=== PATIENT | male | born 1945 | race Caucasian/White ===

== ENCOUNTER → 2017-07-10 10:08 | Outpatient (CLI) | payer MEDICARE, OTHER, SELFPAY | PROVIDERS: Family Provider Family Medicine; PCP Family Medicine; Visit Provider Internal Medicine Cardiovascular Disease | DX: E78.5 Hyperlipidemia, unspecified (principal); Z79.899 Other long term (current) drug therapy | CPT/HCPCS: 36415; 80061; 80076 ==

== ENCOUNTER → 2017-07-11 10:24 | Outpatient (CLI) | payer MEDICARE, OTHER, SELFPAY ==
[2017-07-11 12:00] LABS: AST(SGOT) 27 U/L (15-37); Alanine Aminotransfer ALT/SGPT 32 U/L (16-61); Albumin, Serum 3.9 g/dL (3.2-5.0); Alkaline Phosphatase 92 U/L (45-117); Bilirubin, Direct 0.13 mg/dL (0.00-0.30); Cholesterol 128 mg/dL (200); Globulin 3.4 g/dL (2.2-4.2); High Density Lipoprotein 47 mg/dL; Protein, Total 7.3 g/dL (6.4-8.2); Triglycerides 274 mg/dL; Very Low Density Lipoprotein 55 mg/dL (5-40)
== END ==
PROVIDERS: Family Provider Family Medicine; PCP Family Medicine; Visit Provider Nurse Practitioner Family
DX: E78.5 Hyperlipidemia, unspecified (principal)
CPT/HCPCS: 36415; 80061; 80076

== ENCOUNTER → 2017-07-23 15:54 | Outpatient (CLI) | payer MEDICARE, OTHER, SELFPAY ==
[2017-07-23 16:58] LABS: Absolute Lymphocyte Count 2.04 X10^3/ul (0.83-4.51); Absolute Neutrophil Count 3.2 X10^3/uL (2.0-7.7); Basophil# 0.04 X10^3/uL; Basophil% 0.7 % (0-1); Eosinophil# 0.08 X10^3/uL; Eosinophils% 1.4 % (0-5); Hematocrit 39.5 % (40-54); Hemoglobin 12.8 g/dl (13.0-16.5); Lymphocyte # 2.04 X10^3/ul (4.0); Lymphocyte % 35.4 % (19-41); Mean Corp Hgb Conc 32.4 g/gl (32-36); Mean Corpuscular Hgb 30.2 pg (27.0-32.0); Mean Corpuscular Volume 93.2 fL (80-94); Mean Platelet Vol. 10.4 fl (6.2-12.0); Monocyte# 0.36 X10^3/uL; Monocyte% 6.3 % (0-10); Neutrophil # 3.23 X10^3/uL (2.7-7.7); Platelet Count 195 K/mm3 (150-450); RBC Distribution Width CV 13.5 % (11.6-14.6); RBC Distribution Width SD 45.4 fl (35.1-43.9); Red Blood Count 4.24 M/mm3 (4.6-6.2); White Blood Count 5.8 K/mm3 (4.4-11.0)
[2017-07-23 17:13] LABS: POSITIVE COUNT NO; POSITIVE DIFFERENTIAL NO; POSITIVE MORPHOLOGY NO
[2017-07-23 18:04] LABS: Anion Gap 9 (5-15); BUN 21 mg/dL (7-18); BUN/Creat Ratio 13.5 RATIO (10-20); Calcium,Total 8.8 mg/dL (8.5-10.1); Chloride 110 mmol/L (98-107); Creatinine, Serum 1.56 mg/dL (0.70-1.30); EST Glomerular Filtration Rate 47 mL/min (>60); Est Glom Filt Rate - Afr Amer 57 mL/min (>60); Glucose 140 mg/dL (74-106); Magnesium 1.7 mg/dL (1.6-2.6); Potassium 4.2 mmol/L (3.5-5.1); Sodium Level 141 mmol/L (136-145); T4 Total, Thyroxin 7.2 ug/dL (4.5-12.1); Thyroid Stim Hormone (TSH) 3.09 uIU/mL (0.358-3.74)
== END ==
PROVIDERS: Family Provider Family Medicine; PCP Family Medicine; Visit Provider Physician Assistant Medical
DX: I25.10 Atherosclerotic heart disease of native coronary artery without angina pectoris (principal); I95.1 Orthostatic hypotension; R53.83 Other fatigue
CPT/HCPCS: 36415; 80048; 83735; 84436; 84443; 85025

== ENCOUNTER → 2018-01-14 08:03 | Outpatient (CLI) | payer MEDICARE, OTHER, SELFPAY ==
[2018-01-14 12:15] LABS: AST(SGOT) 24 U/L (15-37); Alanine Aminotransfer ALT/SGPT 34 U/L (16-61); Albumin, Serum 3.8 g/dL (3.2-5.0); Alkaline Phosphatase 91 U/L (45-117); Bilirubin, Direct 0.13 mg/dL (0.00-0.30); Cholesterol 108 mg/dL (200); Globulin 3.2 g/dL (2.2-4.2); High Density Lipoprotein 44 mg/dL; Triglycerides 147 mg/dL; Very Low Density Lipoprotein 29 mg/dL (5-40)
== END ==
PROVIDERS: Nurse Practitioner Family; Family Provider Family Medicine; PCP Family Medicine; Visit Provider Physician Assistant Medical
DX: E78.5 Hyperlipidemia, unspecified (principal)
CPT/HCPCS: 36415; 80061; 80076

== ENCOUNTER 2018-06-05 09:17 | Day surgery (SDC) | payer MEDICARE, OTHER, SELFPAY ==
[2018-05-15 09:16] VITALS: BMI 22.4
[2018-05-15 10:37] LABS: Hematocrit 41.2 % (40-54); Hemoglobin 13.2 g/dl (13.0-16.5); Mean Corpuscular Hgb 30.3 pg (27.0-32.0); Mean Corpuscular Volume 94.5 fL (80-94); Mean Platelet Vol. 10.3 fl (6.2-12.0); Platelet Count 235 K/mm3 (150-450); RBC Distribution Width CV 13.4 % (11.6-14.6); Red Blood Count 4.36 M/mm3 (4.6-6.2); White Blood Count 5.7 K/mm3 (4.4-11.0)
[2018-05-15 10:57] LABS: Scan Indicated on CBC? Y/N NO
[2018-05-15 10:58] LABS: Anion Gap 6 (5-15); BUN 20 mg/dL (7-18); BUN/Creat Ratio 15.4 RATIO (10-20); Calcium,Total 9.1 mg/dL (8.5-10.1); Chloride 110 mmol/L (98-107); EST Glomerular Filtration Rate 58 mL/min (>60); Est Glom Filt Rate - Afr Amer 70 mL/min (>60); Glucose 80 mg/dL (74-106); Potassium 4.3 mmol/L (3.5-5.1); Sodium Level 142 mmol/L (136-145)
--- NOTE | 2018-05-15 11:16 | EKG12_ITS ---
Test Reason : PRE-OP Blood Pressure : / mmHG Vent. Rate : 049 BPM Atrial Rate : 049 BPM P-R Int : 162 ms QRS Dur : 080 ms QT Int : 444 ms P-R-T Axes : 024 054 067 degrees QTc Int : 401 ms Marked sinus bradycardia Early repolarization Abnormal ECG Confirmed by JULY HAWK, HANNAH ([id number]), manager editorial RG BUSTOS ([id number]) on 05/19/2018 9:29:03 AM Referred By: Bryan Rahman Confirmed By:HANNAH MCDOWELL MD
[2018-06-04 10:45] VITALS: BMI 22.3
--- NOTE | 2018-06-05 11:49 | PCM.OPRPT ---
Problem List (1) Peripheral arterial occlusive disease Status: Acute Report of Operation Date of Procedure: 06/05/18 Pre-Operative Diagnosis: Hammertoe deformity left foot. Peripheral arterial occlusive disease with noncompressible vessels Post-Operative Diagnosis: Patent left lower extremity arteries with no areas of clinically significant stenosis Surgery/Procedure Performed:: Abdominal pelvic left lower extremity arteriogram Description of Surgical Findings:: Timeout and informed consent was obtained. 72-year-old gentleman was taken to the special procedures lab placed upon the table. Preoperatively he received iodinated contrast prophylaxis with Solu-Cortef and Benadryl and famotidine. Timeout and informed consent was obtained. He received 50 mcg of fentanyl and 2 mg of Versed as intravenous sedation as well. The right groin was sterilely prepped and draped. Ultrasound was used to identify the right common femoral superficial femoral profundofemoral. 2% lidocaine was instilled under ultrasound guidance. Micropuncture needle inserted under ultrasound guidance. Micropuncture wire inserted. 5 [place] short sheath was inserted. An 035 angled Glidewire was used to place a 5 [place] universal flush catheter into the abdominal aorta. An AP aortogram was obtained using 15 cc a second for 20 cc of Visipaque contrast. This was diluted contrast. Then the catheter was withdrawn to the iliac bifurcation using an angled Glidewire the catheter could not be advanced I then advanced a 4 [place] glide cath to the left groin area. Static views of the left thigh were obtained. I then switched out to a stiff 035 angled Glidewire was able to advance a 4 [place] angled [place] cath into the left superficial femoral artery. Static views of the popliteal artery was obtained. The catheter was then advanced to the infrageniculate area and lower leg films were obtained. He tolerated that procedure well. Over the wire the glide catheter was removed. A wire was replaced through the right groin sheath and a minx sheath was inserted. Then the minx device was inserted and deployed. Gentle pressure was held for 2 minutes. The device was carefully removed. Hemostasis was immediately intact. There were no apparent complications. Both extremities viable. Images demonstrate a widely patent abdominal aorta, bilateral common iliac, internal iliac, and external iliacs. The left common femoral and profunda femoral and superficial femoral also patent. The left popliteal patent. There is trifurcation flow on the left. The left anterior tibial and posterior tibial are dominant. The left peroneal fades by the distal calf. There is evidence of palmar arch flow and digital flow. Impression: Normal large vessel vascular supply to the left lower extremity with intact digital flow identified My impression is that the patient should be able to tolerate corrective left foot surgery Bryan Rahman M.D., F.A.C.S. Type of Anesthesia:: IV Sedation
[2018-06-05 11:52] LABS: ACT Activated Clotting Time 120 sec (74-137)
--- NOTE | 2018-06-05 11:56 | OP.PCM_ITS ---
Problem List (1) Peripheral arterial occlusive disease Status: Acute Report of Operation Date of Procedure: 06/05/18 Pre-Operative Diagnosis: Hammertoe deformity left foot. Peripheral arterial occlusive disease with noncompressible vessels Post-Operative Diagnosis: Patent left lower extremity arteries with no areas of clinically significant stenosis Surgery/Procedure Performed:: Abdominal pelvic left lower extremity arteriogram Description of Surgical Findings:: Timeout and informed consent was obtained. 72-year-old gentleman was taken to the special procedures lab placed upon the table. Preoperatively he received iodinated contrast prophylaxis with Solu-Cortef and Benadryl and famotidine. Timeout and informed consent was obtained. He received 50 mcg of fentanyl and 2 mg of Versed as intravenous sedation as well. The right groin was sterilely prepped and draped. Ultrasound was used to identify the right common femoral superficial femoral profundofemoral. 2% lidocaine was instilled under ultrasound guidance. Micropuncture needle inserted under ultrasound guidance. Micropuncture wire inserted. 5 [place] short sheath was inserted. An 035 angled Glidewire was used to place a 5 [place] universal flush catheter into the abdominal aorta. An AP aortogram was obtained using 15 cc a second for 20 cc of Visipaque contrast. This was diluted contrast. Then the catheter was withdrawn to the iliac bifurcation using an angled Glidewire the catheter could not be advanced I then advanced a 4 [place] glide cath to the left groin area. Static views of the left thigh were obtained. I then switched out to a stiff 035 angled Glidewire was able to advance a 4 [place] angled [place] cath into the left superficial femoral artery. Static views of the popliteal artery was obtained. The catheter was then advanced to the infrageniculate area and lower leg films were obtained. He tolerated that procedure well. Over the wire the glide catheter was removed. A wire was replaced through the right groin sheath and a minx sheath was inserted. Then the minx device was inserted and deployed. Gentle pressure was held for 2 minutes. The device was carefully removed. Hemostasis was immediately intact. There were no apparent complications. Both extremities viable. Images demonstrate a widely patent abdominal aorta, bilateral common iliac, internal iliac, and external iliacs. The left common femoral and profunda femoral and superficial femoral also patent. The left popliteal patent. There is trifurcation flow on the left. The left anterior tibial and posterior tibial are dominant. The left peroneal fades by the distal calf. There is evidence of palmar arch flow and digital flow. Impression: Normal large vessel vascular supply to the left lower extremity with intact digital flow identified My impression is that the patient should be able to tolerate corrective left foot surgery Bryan Rahman M.D., F.A.C.S. Type of Anesthesia:: IV Sedation
== END 2018-06-05 15:00 | disposition home or self-care (01) ==
LOC: CLSP 09:18
PROVIDERS: Family Provider Family Medicine; PCP Family Medicine; Referring Provider Surgery; Visit Provider Surgery
DX: Z01.818 Encounter for other preprocedural examination (principal); I77.9 Disorder of arteries and arterioles, unspecified; M20.42 Other hammer toe(s) (acquired), left foot; I25.10 Atherosclerotic heart disease of native coronary artery without angina pectoris; E78.5 Hyperlipidemia, unspecified; E11.9 Type 2 diabetes mellitus without complications; Z79.82 Long term (current) use of aspirin; Z79.84 Long term (current) use of oral hypoglycemic drugs; Z79.899 Other long term (current) drug therapy; Z87.891 Personal history of nicotine dependence
CPT/HCPCS: 36245; 36415; 75710; 76937; 80048; 85027; 85347; 93005; 99152; 99153; C1760; J7030; J7040; Q9967; C1769; J3490

== ENCOUNTER → 2019-02-05 11:39 | Outpatient (CLI) | payer MEDICARE, OTHER, SELFPAY ==
[2019-01-20 13:03] VITALS: BMI 21.7
[2019-02-04 14:18] LABS: Creatinine, Serum 1.51 mg/dL (0.70-1.30); EST Glomerular Filtration Rate 49 mL/min (>60); Est Glom Filt Rate - Afr Amer 59 mL/min (>60)
--- NOTE | 2019-02-05 11:41 | MRI_ITS ---
STUDY: MRI RIGHT KNEE REASON FOR EXAM: Posterior medial lump of the right knee. TECHNIQUE: Standardized fat and water weighted pulse sequences were obtained in all 3 orthogonal planes. COMPARISON: None. FINDINGS: There is a radial tear of the posterior horn of the medial meniscus extending to the root (recovery sagittal images 25-28), a horizontal tear of the free margin of the posterior horn of the medial meniscus (T1 sagittal images 32, 33) and a small vertical tear of the inferior articular surface of the body of the medial meniscus (T2 coronal images 17, 18). Normal hyaline cartilage of the medial femorotibial compartment. Normal medial femoral condyle and tibial plateau. Normal medial collateral ligamentous complex (MCL). Normal distal semimembranosus, gracilis and semitendinosus tendons. Normal lateral meniscus. Normal hyaline cartilage of the lateral femorotibial compartment. Normal lateral femoral condyle and tibial plateau. Normal proximal tibiofibular articulation. Normal lateral collateral (fibular) ligament. Normal popliteus tendon. Normal biceps femoris tendon. Normal anterior cruciate ligament (ACL). Normal posterior cruciate ligament (PCL). Normal congruent patellofemoral articulation. Normal hyaline cartilage of the patellofemoral compartment. Normal medial and lateral patellar retinaculum. Normal quadriceps tendon. Normal patellar tendon. Normal Hoffa's fat pad. There is no joint effusion. There is a lobulated popliteal cyst corresponding to the skin markers with a superficial component (T2 coronal images 4-9; inversion recovery sagittal images 26-38). The popliteal cyst measures 6.3 cm in length. The otherwise visualized osseous structures are unremarkable. MRI/Lower Ext Joint Only (Routine) IMPRESSION: Popliteal cyst corresponding to the skin markers. Medial meniscal tear. Electronically Signed: Adan Dias MD at 13:59 EDT Tel , Service support ,
== END ==
PROVIDERS: Family Provider Family Medicine; PCP Family Medicine; Referring Provider Surgery; Visit Provider Surgery
DX: M23.8X1 Other internal derangements of right knee (principal)
CPT/HCPCS: 36415; 73721; 82565

== ENCOUNTER 2019-04-29 23:07 | Emergency (ER) | payer MEDICARE, OTHER, SELFPAY ==
[2019-02-11 10:58] VITALS: BMI 21.7
[2019-04-29 23:08] VITALS: BP 145/90; PULSE 81; RESP 17; TEMP 36.4; O2SAT 98; BMI 24.0
--- NOTE | 2019-04-29 23:28 | ED.VIS.GEN ---
History of Present Illness Chief Complaint: Male Pain/Injury Informant: Patient Narrative: Stated that for the last 12 hours he has had gradual onset of aching left-sided testicle pain. Not sexually active for the last 3 years. No history of sexual transmitted infection. He is never had a twisted testicle. Denies any hernia surgery on this side. No fevers or surgery. No home treatment. Current severity is moderate. Worsened by touching it. Stated he has chronic back pain on the right side for several months but that is not contributing to this type of discomfort he is having in his testicle. - Past Medical History (1) Peripheral arterial occlusive disease Status: Acute (2) Atherosclerotic heart disease of [place] coronary artery without angina pectoris Status: Chronic (3) Hyperlipidemia Status: Chronic (4) Long-term use of high-risk medication Status: Chronic (5) Presence of stent in coronary artery Status: Chronic Comment: cardiac cath (left) March 1996, w/ PCI-Stent Mid LAD 1995, [facility] w/ [id number] LAD 05/19/10; [facility] w/PCI and [place] to proximal and distal LAD 12/07/15 (6) Status post placement of implantable loop recorder Status: Chronic (7) Type II diabetes mellitus Status: Chronic (8) Syncope and collapse Status: Resolved Past Medical History - Allergies and Home Meds Allergies/Adverse Reactions: Allergies iodine Allergy (Unknown, Verified 04/29/19 23:07) convulsions codeine Allergy (Verified 04/29/19 23:07) Itching Primary Care Physician: Brent Rahman III, MD [Primary Care Provider] - Prior records reviewed: Yes Past Medical History: - - See problem list Surgical History: noncontributory, appendectomy, cholecystectomy, tonsillectomy Lives: With Family Smoking Status: Never smoker Alcohol: None Drugs: None - Family History Sibling Family History: Family History (Last Reviewed 01/20/19 @ 13:01 by Jonna Moran) Father FH: congestive heart failure Mother FH: aneurysm Brother CVA (cerebral vascular accident) Brother Cancer Family History: Reports: Cancer Maternal Family History: Family History (Last Reviewed 01/20/19 @ 13:01 by Jonna Moran) Father FH: congestive heart failure Mother FH: aneurysm Brother CVA (cerebral vascular accident) Brother Cancer Family History: Reports: No pertinent history Paternal Family History: Family History (Last Reviewed 01/20/19 @ 13:01 by Jonna Moran) Father FH: congestive heart failure Mother FH: aneurysm Brother CVA (cerebral vascular accident) Brother Cancer Family History: Reports: Diabetes Review of Systems General: Denies: Chills, Fever, Sweats Eyes: Denies: Visual changes - bilaterally, Diplopia ENT: Denies: Rhinorrhea, Sore throat Cardiovascular: Denies: Chest pain, Palpitations Respiratory: Denies: Dyspnea, Cough, Dyspnea on exertion Gastrointestinal: Denies: Abdominal pain, Nausea, Vomiting, Diarrhea, Melena, Hematochezia Genitourinary: Reports: - - See HPI. Denies: Dysuria, Hematuria, Frequency Musculoskeletal: Denies: Back pain, Extremity Pain Skin: Denies: Rash, Wounds Neurological: Denies: Headache, Weakness, Numbness Physical Exam Vital Signs/Narrative: Vital Signs Temp Pulse Resp BP Pulse Ox 04/29/19 23:08 97.5 F L 81 17 145/90 H 98 General: Well nourished, Well developed, No Acute Distress Head: Normocephalic, Atraumatic Eyes: Perrl, EOMI ENT: Moist mucous membranes, No rhinorrhea Neck: Supple, Nontender Cardiovascular: Regular rate, Regular rhythm, No murmurs Respiratory: No distress, CTA bilaterally, Chest nontender Abdomen: Soft, Nontender, Nondistended, Normal bowel sounds : - - Tender swollen hard in left testicle. Normal lie. Easy to maneuver. No inguinal hernia. No swelling or deformity. Scrotum appears normal. Right testicle is normal. Unable to elicit cremasteric Back: Nontender, Normal Inspection Extremities: Nontender, No edema Skin: Normal color, No rash Neurological: Alert, Oriented x3, Cranial nerves II-XII grossly intact, Normal Strength, Normal Sensation Psychological: Normal affect, Normal Mood Diagnostic/Tx/Re-eval - Medical Decision Making Given IV fluids and morphine and Zofran. Lab work and emergent ultrasound of the testicle obtained lab work shows no major abnormalities. Mildly chronic elevated creatinine. Ultrasound shows no torsion. Atrophy of the right testicle. Left testicle which is bothering him shows evidence of epididymitis. Patient given ciprofloxacin. Urinalysis shows no infection. Urine culture sent. Will be discharged on Percocet and ciprofloxacin to follow-up as an outpatient ED Disposition - Plan for ED Patient: Disposition: Home or Assisted Living Diagnosis: Epididymitis Instructions: Epididymitis Prescriptions: Ciprofloxacin [Cipro] 500 mg PO BID #20 tab Prescription Printed Oxycodone HCl/Acetaminophen [Percocet 5/325] 1 - 2 tab PO Q6H PRN PRN 3 Days #12 tab PRN Reason: Pain Prescription Printed Referrals: Brent Rahman III, MD [Primary Care Provider] -
--- NOTE | 2019-04-29 23:35 | US_ITS ---
STUDY: SCROTUM ULTRASOUND REASON FOR EXAM: Male, 73 years old. LEFT TESTICULAR PAIN AND SWELLING TECHNIQUE: Ultrasound evaluation of the scrotum was performed with color Doppler and static kinsey-scale imaging. COMPARISON: None. FINDINGS: RIGHT TESTICLE INTRATESTICULAR: There is atrophic heterogeneous right testicle. The right testicle measures 1.9 x 1.2 x 0.9 cm. There is a heterogeneous echotexture. There is normal arterial and normal venous vascularity. There is no demonstrated right testicular mass or cyst. EXTRATESTICULAR: The epididymis is normal in size. The epididymis head measures 1.1 x 0.9 x 2.6 cm. There is normal vascularity of the epididymis. There is no demonstrated epididymal cystic structure. There is a small hydrocele. There is no demonstrated varicocele. There is no demonstrated extratesticular mass or cyst. LEFT TESTICLE INTRATESTICULAR: There is a normal size of the left testicle. The left testicle measures 3.4 x 2.8 x 2.3 cm. There is a homogenous echotexture. There is normal arterial and normal venous vascularity. There is no demonstrated left testicular mass or cyst. EXTRATESTICULAR: The epididymis is normal in size. The epididymis head measures 1.2 x 1.3 x 0.8 cm. There is normal vascularity of the epididymis. There is no demonstrated epididymal cystic structure. There is no demonstrated hydrocele. There is no demonstrated varicocele. There is no demonstrated extratesticular mass or cyst. US/Testicular with Arterial Flow IMPRESSION: Enlargement of the left epididymis may represent epididymitis. Severe atrophy of the right testicle may be due to an old trauma. Electronically Signed: Aspen Reyes, at 1:49 EST Tel , Service support ,
[2019-04-30 00:10] LABS: Absolute Lymphocyte Count 2.32 X10^3/uL (0.83-4.51); Absolute Neutrophil Count 4.3 X10^3/uL (2.0-7.7); Basophil# 0.06 X10^3/uL; Basophil% 0.8 % (0-1); Eosinophil# 0.11 X10^3/uL; Eosinophils% 1.5 % (0-5); Hematocrit 36.8 % (40-54); Hemoglobin 12.1 g/dL (13.0-16.5); Lymphocyte # 2.32 X10^3/ul (4.0); Lymphocyte % 31.1 % (19-41); Mean Corp Hgb Conc 32.9 g/dL (32-36); Mean Corpuscular Hgb 30.6 pg (27.0-32.0); Mean Corpuscular Volume 93.2 fL (80-94); Mean Platelet Vol. 9.7 fl (6.2-12.0); Monocyte# 0.64 X10^3/uL; Monocyte% 8.6 % (0-10); NRBC Flagged by Analyzer 0 % (0-5); Neutrophil # 4.29 X10^3/uL (2.7-7.7); Neutrophil % 57.3 % (47-70); Platelet Count 161 K/mm3 (150-450); RBC Distribution Width CV 12.7 % (11.6-14.6); RBC Distribution Width SD 43.4 fl (35.1-43.9); Red Blood Count 3.95 M/mm3 (4.6-6.2); White Blood Count 7.5 K/mm3 (4.4-11.0)
[2019-04-30] MEDS: Morphine 4 MG/ML Syringe IV (00:19)
[2019-04-30] MEDS: Ondansetron 4 MG/2 ML Vial IV (00:19)
[2019-04-30 00:23] LABS: Anion Gap 7 (5-15); BUN 21 mg/dL (7-18); BUN/Creat Ratio 14.1 RATIO (10-20); Calcium,Total 8.9 mg/dL (8.5-10.1); Chloride 109 mmol/L (98-107); Creatinine, Serum 1.49 mg/dL (0.70-1.30); EST Glomerular Filtration Rate 49 mL/min (>60); Est Glom Filt Rate - Afr Amer 60 mL/min (>60); Estimated Creatinine Clearance 47.73 ml/min; Glucose 161 mg/dL (74-106); Potassium 4.3 mmol/L (3.5-5.1); Sodium Level 140 mmol/L (136-145)
[2019-04-30 00:37] LABS: Bacteria 0 SEEN /hpf (None Seen); Mucous, Urine 0 SEEN /hpf (<or=2+); Red Blood Cells-Urine 0 SEEN /hpf (0-5); Squamous Epithelial Cells - UA 0 SEEN /hpf (0-5); White Blood Cells 0 SEEN /hpf (0-5)
[2019-04-30 00:46] LABS: Color, Urine Yellow (Yellow); Glucose, Dipstick Normal (Normal); Ketone-Dipstick Negative (Negative); Leukocyte Esterase-Dipstick Negative /ul (Negative); Nitrite-Dipstick Negative (Negative); Occult Blood-Urine 10 /ul (Negative); Protein-Dipstick Negative (Negative); Urine Bilirubin Dipstick Negative (Negative); Urine Clarity Clear (Clear); Urine Urobilinogen Normal (Normal)
[2019-04-30 01:22] VITALS: BP 134/81; PULSE 60; RESP 17; O2SAT 98
[2019-04-30 03:05] VITALS: BP 151/88; PULSE 78; RESP 15; O2SAT 98
[2019-04-30] MEDS: Ciprofloxacin 500 MG Tablet PO (03:05)
== END 2019-04-30 03:06 | disposition home or self-care (01) ==
PROVIDERS: Emergency Provider Emergency Medicine; Family Provider Family Medicine; PCP Family Medicine
DX: N45.1 Epididymitis (principal); I25.10 Atherosclerotic heart disease of native coronary artery without angina pectoris; E11.9 Type 2 diabetes mellitus without complications; E78.5 Hyperlipidemia, unspecified; Z95.5 Presence of coronary angioplasty implant and graft; Z79.82 Long term (current) use of aspirin; Z79.84 Long term (current) use of oral hypoglycemic drugs; Z79.899 Other long term (current) drug therapy
CPT/HCPCS: 76870; 80048; 81001; 85025; 87086; 93976; 96361; 96374; 96375; 99284; J7030; A4216; J2405

== ENCOUNTER 2019-05-19 11:30 | Outpatient (RCR) | payer MEDICARE, OTHER, SELFPAY ==
[2019-02-11 10:58] VITALS: BMI 21.7
--- NOTE | 2019-02-24 11:52 | HP.PTEVAL_ITS ---
Patient's Visit Information SANCHEZ LIM is a 73 year old M referred to Physical Therapy by Kyaw Willis MD with a diagnosis of L subscap repair and arthroscopic debridement on 01-15-19. Date of Evaluation: 02/24/19 Physical Therapist: HIEU Matos - Visit Plan Frequency: 1-2x /Week Duration: 3 Months Plan: 1-2X/ week to gain PROM per phase I (through 03-10-19). ++PROM fw elevation to 90 degree and ER to 0 degrees at 0 degrees abd till 03-10-19. Will need another order to progress to Phase II as current order only says phase I. Phase II. see protocol in folder. +++Protocol is in Protocol folder++++ - Subjective Findings: His L shoulder has been getting worse over the years and he was just having a lot of pain. He went to the Dr and he said that he needed surgery which was 01-15-19 and he had a GH debridemnet and subscap repair. He has been in the sling since surgery and will be in the sling for a total of 8 weeks. Pt is R handed. He is sleeping ok. He is taking pain meds once in awhile. He is driving. - Pain L shoulder pain Pain Intensity (Out of 10): 0 - Objective L shoulder PROM to 90 degrees elevation and at 0 degrees abd to 0 degrees ER. AAROM of the L bicep using the R hand. Able to do shoulder shrugs and retraction B without any pain. 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 Goal Time Frame: 8-12 Weeks Goal 4:: Increase L shoulder strength to 4/5 Goal Time Frame: 8-12 Weeks - Rehabilitation Potential Rehabilitation Potential: Good - Anticipated Interventions Patient/Client Instruction: Educate patient on: Condition, Plan of Care For the Purpose of:: To decrease pain, To increase ROM, To improve nutrient delivery to tissue, To improve muscle performance and motor function, To improve ability to perform ADL's, To increase tolerance to activity/condition/position, To improve performance and independence with ADL's, To decrease level of supervision to perform tasks, To improve ability of physical actions for home/community/work/leisure, To improve health of tissue, To decrease soft tissue restriction, To increase flexibility/ROM Therapeutic Exercise to Include: Strength training, Postural training, F lexibilty training, Passive ROM, Active ROM, Scapular Strength/Stabilization For the Purpose of:: To decrease pain, To decrease swelling/inflammation, To increase ROM, To improve nutrient delivery to tissue, To improve muscle performance and motor function, To improve ability to perform ADL's, To increase tolerance to activity/condition/position, To improve performance and independence with ADL's, To decrease level of supervision to perform tasks, To improve gait and locomotor functions, To improve health of tissue, To decrease soft tissue restriction, To increase flexibility/ROM Manual Therapy Techniques to Include: Passive ROM For the Purpose of:: To increase ROM IF ES: Yes Cryotherapy (ice pack, ice massage): Yes Thermo therapy (hot pack): Yes For the Purpose of:: To decrease pain, To increase ROM, To improve nutrient delivery to tissue, To improve muscle performance and motor function Thank you for the opportunity to evaluate your patient. For Medicare and Medicare HMO plans, please review the plan of care and approve it. It will need to be FAXED BACK to us at [phone] for Medicare purposes. For Medicare only, by signing this I certify the plan of care. Please let me know if there are questions or concerns regarding this plan of care. Physician Signature: Date:
--- NOTE | 2019-05-06 16:05 | HP.PTREVAL ---
Kyaw Willis MD, It has been my pleasure to treat SANCHEZ LIM over the last 10 visits for L subscap repair and arthroscopic debridement on 01-15-19. Please see the progress note below for an update on the physical therapy plan of care! Subjective: Pt is on an antibiotic for a body infection. He feels that his progress is about 99%. He is agreeable to HEP and 4 additional PT visits to increase strength. Objective/Function: Had some discomfort with IR at first with orange band... stopped after a few reps. L shoulder abd 130 degrees, flexion is equal to the R, ER and IR are equal to the R. L shoulder MMT: flex 4-/5, abd 3+/5 ( not full ROM), ER. IR 4-/5 Plan Plan: hep given today for green t-band ext/add, orange IR/ER, and blue mid rows. 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 Goal Time Frame: 8-12 Weeks Goal 4:: Increase L shoulder strength to 4/5 Goal Time Frame: 8-12 Weeks Goal Progress: Progressing Anticipated Interventions Patient/Client Instruction: Educate patient on: Condition, Plan of Care For the Purpose of:: To decrease pain, To increase ROM, To improve nutrient delivery to tissue, To improve muscle performance and motor function, To improve ability to perform ADL's, To increase tolerance to activity/condition/position, To improve performance and independence with ADL's, To decrease level of supervision to perform tasks, To improve ability of physical actions for home/community/work/leisure, To improve health of tissue, To decrease soft tissue restriction, To increase flexibility/ROM Therapeutic Exercise to Include: Strength training, Postural training, Flexibilty training, Passive ROM, Active ROM, Scapular Strength/Stabilization For the Purpose of:: To decrease pain, To decrease swelling/inflammation, To increase ROM, To improve nutrient delivery to tissue, To improve muscle performance and motor function, To improve ability to perform ADL's, To increase tolerance to activity/condition/position, To improve performance and independence with ADL's, To decrease level of supervision to perform tasks, To improve gait and locomotor functions, To improve health of tissue, To decrease soft tissue restriction, To increase flexibility/ROM Manual Therapy Techniques to Include: Passive ROM For the Purpose of:: To increase ROM IF ES: Yes Cryotherapy (ice pack, ice massage): Yes Thermo therapy (hot pack): Yes For the Purpose of:: To decrease pain, To increase ROM, To improve nutrient delivery to tissue, To improve muscle performance and motor function Please do not hesitate to contact me at [phone] by phone or if you have questions or concerns regarding this new plan of care! Sincerely, Lori Gilbert, MPT
--- NOTE | 2019-05-19 11:55 | HP.PTDCSUM ---
HP - PT D/C Summary It has been my pleasure to treat SANCHEZ LIM under orders from Kyaw Willis MD, for the diagnosis of L subscap repair and arthroscopic debridement on 01-15-19 for a total of 13 visit(s). Discharge Date: 05/19/19 Please see the following information for a summary of their discharge status. - Subjective Subjective: Pt reports that he wants to be done with his therapy today cause he has someother appointments and water therapy for his back comin gup. - Pain L shoulder pain Pain Intensity (Out of 10): 0 - Overall Improvement % Improvement: 100 - Objective Objective/Function: L shoulder MMT: Flexion 4.5, Abd 4-/5, ER 4-/5, and IR 4/5. L shoulder AROM: flexion 140 degrees, scaption 165degrees, 40 degrees ER, IR L1. 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 Thank you for the referral of this patient. Sincerely, Lori Gilbert, MPT
== END 2019-05-19 19:00 | disposition home or self-care (01) ==
LOC: PT 11:30
PROVIDERS: Family Provider Family Medicine; PCP Family Medicine; Referring Provider Orthopaedic Surgery; Visit Provider Orthopaedic Surgery
DX: S46.212D Strain of muscle, fascia and tendon of other parts of biceps, left arm, subsequent encounter (principal)
CPT/HCPCS: 97110; 97161; 97530

== ENCOUNTER → 2019-05-21 13:55 | Outpatient (CLI) | payer MEDICARE, OTHER, SELFPAY ==
[2019-05-11 10:33] VITALS: BMI 23.0
--- NOTE | 2019-05-21 13:56 | ECHOD_ITS ---
Reason For Study: CAD.ASHD Procedure This was a 2D Doppler, Color Flow transthoracic echocardiogram. The exam was of adequate technical quality. Exam performed in department. Left Ventricle Normal LV size. Left ventricular systolic function is normal. The estimated ejection fraction is 60 %. No regional wall motion abnormalities noted. Right Ventricle Normal RV size. Normal systolic function. Atria Normal left atrium. Normal right atrium. No doppler evidence for ASD. Mitral Valve There is no mitral annular calcification. Normal mitral valve. Mild (1+) mitral valve insufficiency. Tricuspid Valve Normal tricuspid valve. Trivial tricuspid valve insufficiency. Right ventricular systolic pressure estimated to be 24 mmHg. Aortic Valve Trisinus/trileaflet aortic valve. Mild focal aortic valve calcification. Pulmonic Valve The pulmonic valve is not well visualized. Trivial pulmonic valve insufficiency. Great Vessels Normal sized aortic root. Pericardium/Pleural No pericardial effusion. MMode/2D Measurements & Calculations LVIDd: 3.7 cm IVSd: 1.1 cm Ao root diam: 3.2 cm LVIDs: 2.5 cm LVPWd: 1.1 cm RVDd: 3.0 cm FS: 33.4 % LAV(MOD-bp): 36.2 ml LVAd ap4: 28.8 cm2 SV(MOD-sp4): 50.5 ml LAV(MOD-bp) Indexed: 18.8 ml/m2 EDV(MOD-sp4): 86.0 ml LAV(MOD-sp2): 31.8 ml EDV(sp4-el): 90.8 ml LAV(MOD-sp4): 40.5 ml LVAs ap4: 17.1 cm2 ESV(MOD-sp4): 35.5 ml ESV(sp4-el): 37.0 ml EF(MOD-sp4): 58.7 % EF(sp4-el): 59.3 % SV(sp4-el): 53.8 ml LA A4 area: 16.1 cm2 LA dimension(2D): 3.3 cm RA A4 area: 15.9 cm2 Time Measurements MV dec time: 0.23 sec Doppler Measurements & Calculations MV E max miki: 69.7 cm/sec Lat Peak E' Miki: 10.0 cm/sec Med Peak E' Miki: 7.9 cm/sec MV A max miki: 54.6 cm/sec E/E' lat: 7.0 E/E' med: 8.9 MV E/A: 1.3 Ao V2 max: 121.2 cm/sec LV V1 max: 67.6 cm/sec PA V2 max: 127.5 cm/sec Ao max P.9 mmHg LV V1 max P.8 mmHg TR max miki: 226.6 cm/sec TR max P.5 mmHg Interpretation Summary Left ventricular systolic function is normal. The estimated ejection fraction is 60 %. Mild (1+) mitral valve insufficiency. Trivial tricuspid valve insufficiency. Mild focal aortic valve calcification. Trivial pulmonic valve insufficiency. Right ventricular systolic pressure estimated to be 24 mmHg. Transmitral diastolic flow velocities suggest diastolic dysfunction (pseudonormal pattern). Ordering Physician: Oscar Contreras Referring Physician: MARIS LUNA Performed By: Jeannie Mcbride RDCS
== END ==
PROVIDERS: PCP Family Medicine; Referring Provider Internal Medicine Cardiovascular Disease; Visit Provider Internal Medicine Cardiovascular Disease
DX: I25.10 Atherosclerotic heart disease of native coronary artery without angina pectoris (principal)
CPT/HCPCS: 93306

== ENCOUNTER 2019-06-10 12:00 | Outpatient (RCR) | payer MEDICARE, OTHER, SELFPAY ==
[2019-05-11 10:33] VITALS: BMI 23.0
--- NOTE | 2019-05-22 14:56 | HP.PTEVAL ---
Patient's Visit Information SANCHEZ LIM is a 73 year old M referred to Physical Therapy by Aleksandra Duque, DIEGO-C with a diagnosis of LUMBAR DDD. S/P LUMBAR FUSION IN THE PAST OF L2-S1 ABOUT 6 YRS AGO. Date of Evaluation: 05/22/19 Physical Therapist: Robina Manjarrez, PT, Cert MDT - Visit Plan Frequency: 2-3x /Week Duration: 4-6 Weeks Plan: *RECENT L SHLD SX*. AQUATIC THERAPY FOR PAIN RELEIF, POSTURE CORRECTION/STRENGTHENING, INSTRUCTION IN APPROPRIATE BODY MECHANICS AND ACTIVITY MODIFICATIONS. DLS STARTING WITH A NEUTRAL SPINE PROGRESSING ROM TOLERATED. JAMIE LE ROM, STRETCHING AND STRENGTHENING. HEP INSTRUCTION. - Subjective Findings: Work/Leisure: RETIRED. Disability: YES. Present symptoms: JAMIE LOW BACK PAIN. TESTICULAR PAIN - PATIENT REPORTS THIS IS NEW AND THEY SWELLED UP WHEN THIS FIRST HAPPENED THE BEGINNING OF APRIL. PHYSICIANS ARE AWARE OF TESTICULAR PAIN. WILMER'T PENDING WITH [facility] FOR HIS BACK FOR FOLLOW UP SATURDAY (DR. ANASTACIO CARDENAS). Present since: FLARE UP BEGINNING OF APR 2019. Pain Scale: WORST 8/10, LEAST 3/10. Currently: 3/10. Commenced as a result of: FELL DOWN GOING OUT TO GET THE DOG. Symptoms at onset: HEAD PAIN - HEAD HIT THE CEMENT IN THE FALL. THEN BACK PAIN. Worse: BENDING OVER, TRYING TO STAND UP STRAIGHT. Better: SITTING UP STRAIGHT. PATIENT REPORTS HE IS OK IN SITTING BUT HE JUST CAN'T DO ANYTHING AND HE IS NOT USE TO THAT. Disturbed sleep: 0/10. Previous history/Previous treatment: 3 LUMBAR FUSIONS. BRANDON'S. PT. Coughing/sneezing/straining: NEGATIVE. Gait: ABLE TO WALK OK BUT HAS TO BE VERY CAREFUL. CAN'T STAND UP STRAIGHT. Difficulty initiating urinatin: NO. Accidents: NO. Unexplained weight loss: NO. Imaging: PATIENT CAN'T REMEMBER LATEST IMAGING BUT THINKS HE HAD AN X-RAY AT [facility]. PMH: NIDDM, VERTIGO. SEE FURTHER HX BELOW. LEFT ROTATOR CUFF REPAIR FALL 2018 - Objective Sitting/Standing Posture: POOR. INCREASED TRUNK FLEXION, FH AND RS'S. Lordosis: REDUCED. Active Correction of posture: WORSE. Other Observations: INDEP GAIT INTO PT WITHOUT ANY ASSISTIVE DEVICES, WITH DECREASED CADANCE AND INCREASED TRUNK FLEXION. Motor deficit: RIGHT LE: HIP 4-/5, KNEE EXT 4/5, KNEE FLEX 5/5, ANKLE 5/5. LEFT: HIP 4/5, KNEE 5/5, ANKLE 5/5. Sensory deficit: DECREASED LIGHT TOUCH SENSATION OF LEFT LOWER LEG, FOOT AND ANKLE COMPARED TO RIGHT. ROM deficit: TIGHT JAMIE HS'S, GASTROC SOLEUS COMPLEX'S AND HIP FLEXORS. Reflexes: NT. Dural Signs: POSITIVE JAMIE LE'S RIGHT > LEFT. Lumbar mvmt loss: flex - MOD. ext - MIGUEL. R SG - MIGUEL. L SG - MIGUEL. I PROCEEDED CAREFULLY WITH ALL TESTING AND PATIENT C/O INCREASED LBP WITH LUMBAR ROM TESTING ALL PLANES. Core strength: POOR. Palpation: NO ACUTE PAIN WITH PALPATION OF THE LOWER THORACIC AND LUMBOSACRAL REGIONS OR PELVIS BUT PARASPINALS ARE VERY TIGHT. TREATMENT: NEUROMUSCULAR REEDUCATION - RETRAINING OF MVMT AND POSTURE FOR SITTING, LYING AND STANDING ACTIVITIES. - Goals Goal 1:: DECREASE C/O BACK AND LE SX'S. Goal Time Frame: 4-6 Weeks Goal 2:: IMPROVE PERSONAL CARE, LIFTING, WALKING, SITTING, STANDING, SOCIAL LIFE, TRAVEL AND HOMEMAKING FUNCTION Goal Time Frame: 4-6 Weeks Goal 3:: PATIENT WILL BE INDEP WITH A POOL EX PROGRAM FOR CONTINUED IMPROVEMENT ONCE FORMAL PHYSICAL THERAPY CONCLUDES Goal Time Frame: 4-6 Weeks - Rehabilitation Potential Rehabilitation Potential: Fair - Anticipated Interventions Patient/Client Instruction: Educate patient on: Condition, Plan of Care, Risk Factors, Benefits of Fitness Program For the Purpose of:: To improve self management Therapeutic Exercise to Include: Strength training, Body mechanics, Postural training, Flexibilty training, Gait and locomotor training, Neuromotor development, In an aquatic setting, Dynamic Lumbar Stabilization For the Purpose of:: To decrease pain, To increase ROM, To improve muscle performance and motor function, To increase tolerance to activity/condition/position, To improve ability of physical actions for home/community/work/leisure, To improve gait and locomotor functions Thank you for the opportunity to evaluate your patient. For Medicare and Medicare HMO plans, please review the plan of care and approve it. It will need to be FAXED BACK to us at [phone] for Medicare purposes. For Medicare only, by signing this I certify the plan of care. Please let me know if there are questions or concerns regarding this plan of care. Physician Signature: Date:
--- NOTE | 2019-07-24 15:16 | HP.PT.NRP ---
SANCHEZ LIM was seen in my office for initial evaluation on 05/22/19. The following Plan of Care was established for this patient: Initial Frequency: 2-3x /Week Initial Duration: 4-6 Weeks Patient/Client Instruction: Educate patient on: Condition, Plan of Care, Risk Factors, Benefits of Fitness Program For the Purpose of:: To improve self management Therapeutic Exercise to Include: Strength training, Body mechanics, Postural training, Flexibilty training, Gait and locomotor training, Neuromotor development, In an aquatic setting, Dynamic Lumbar Stabilization For the Purpose of:: To decrease pain, To increase ROM, To improve muscle performance and motor function, To increase tolerance to activity/condition/position, To improve ability of physical actions for home/community/work/leisure, To improve gait and locomotor functions This patient was last seen in our office 06/10/19. Pertinent comments regarding their Physical therapy will appear below: This patient has not returned to Physical Therapy and is appropriate to return to MD for further follow-up as needed. At this point I will be discontinuing this patient from physical therapy. I would be happy to see this patient again in the future if found appropriate by the physician. Thank you! Robina Manjarrez, PT, Cert MDT
== END 2019-06-10 19:00 | disposition home or self-care (01) ==
LOC: PT 12:00
PROVIDERS: PCP Family Medicine; Referring Provider Nurse Practitioner; Visit Provider Nurse Practitioner
DX: M51.36 Other intervertebral disc degeneration, lumbar region (principal)
CPT/HCPCS: 97113; 97162

== ENCOUNTER → 2019-06-18 12:06 | Outpatient (CLI) | payer MEDICARE, OTHER, SELFPAY ==
[2019-05-11 10:33] VITALS: BMI 23.0
--- NOTE | 2019-06-18 12:09 | CT_ITS ---
STUDY: CT LUMBAR SPINE WITHOUT CONTRAST REASON FOR EXAM: Male, 73 years old. Low back pain RADIATION DOSAGE (If Supplied By Facility): CTDIvol = ( 12.40 ) mGy, DLP = ( 332.37 ) mGycm TECHNIQUE: CT of the lumbar spine was performed without contrast. Sagittal and coronal images were reconstructed. Individualized dose optimization techniques were used for this CT. COMPARISON: 26 November 2014 MR, 03 May 2015 plain films FINDINGS: Examination is mildly degraded due to metallic artifact and suboptimal technique. Images have elevated noise levels due to suboptimally low radiation dose, without accounting for presence of metallic hardware. Osseous structures are mildly degraded. Soft tissues are moderately degraded and canal contents are poorly seen. Some domestic examination is available. There is grade 1 degenerative retrolisthesis of L1 on L2, approximately 3-4 mm. There is grade 2 anterolisthesis of L5 on S1, approximately 13-14 mm. There is laminectomy decompression of L2-L3 with pedicular screws. There is laminectomy due to compression of L5-S1 with bilateral osseous posterior element fusion with graft overlay. Canal is patent. Paraspinous soft tissues are intact. SI joints are normal. Hardware is intact and in the expected location. CT/Spine Lumbar without Contrast IMPRESSION: 1. Expected appearance of L2-L3 decompression and pedicular screw fusion. 2. Expected appearance of L5-S1 laminectomy and posterior nondalton osseous fusion. 3. Patent thecal sac. 4. Multilevel spondylolisthesis. Electronically Signed: Jorgito Kessler, at 19:07 EST Tel , Service support ,
== END ==
PROVIDERS: PCP Family Medicine; Referring Provider Orthopaedic Surgery; Visit Provider Orthopaedic Surgery
DX: M43.10 Spondylolisthesis, site unspecified (principal)
CPT/HCPCS: 72131

== ENCOUNTER 2019-07-26 19:57 | Emergency (ER) | payer MEDICARE, OTHER, SELFPAY ==
[2019-05-11 10:33] VITALS: BMI 23.0
[2019-07-26 19:58] VITALS: BP 156/78; PULSE 86; RESP 18; TEMP 36.7; O2SAT 100; BMI 22.6
--- NOTE | 2019-07-26 20:18 | CT_ITS ---
STUDY: CT ABDOMEN AND PELVIS WITHOUT CONTRAST REASON FOR EXAM: Male, 73 years old. LT FLANK PAIN,SWOLLEN TESTICLE X SEVERAL DAYS BUT WORSE NOW,RECENT LUMBAR FUSION 06-29-19 -- HX:DIABETES,HTN,GERD,PA WITH 4 STENTS,CAD,HLD -- APPENDECTOMY,CHOLECYSTECTOMY,PARTIAL COLECTOMY RADIATION DOSAGE (If Supplied By Facility): CTDIvol = ( 8.20 ) mGy, DLP = ( 483.76 ) mGycm TECHNIQUE: Transaxial images were obtained from the dome of the diaphragm to the symphysis pubis without oral contrast, and without intravenous contrast. Sagittal and coronal images were reconstructed. Individualized dose optimization techniques were used for this CT. COMPARISON: Prior study of 07/10/2016 FINDINGS: There is elevation of the posterior left hemidiaphragm. The heart size is within normal limits. There is no pericardial effusion. Coronary arterial calcifications or stents are noted. Normal liver. There are surgical clips in the gallbladder fossa consistent with a prior cholecystectomy. Normal spleen. There is diffuse atrophy of the pancreas. Normal bilateral adrenal glands. Normal right kidney. Normal left kidney. Normal visualized stomach. Normal small intestine. There are scattered colonic diverticuli with no evidence of associated diverticulitis. There are surgical clips in the region of the appendix consistent with a prior appendectomy. There are calcified plaques of the abdominal aorta. Normal inferior vena cava. Normal retroperitoneum. Normal urinary bladder. The prostate is enlarged. The seminal vesicles and seminal vesicle angles are preserved. There is a tiny fat-containing umbilical hernia. There are posterior spinal fusion changes of the lumbar spine. Rods and interpeduncular screws are noted at the L2-3 level. There is a grade 2 anterolisthesis of L5 relative to S1 and grade 1 anterolisthesis of L2 relative to L1. CT/Abdomen/Pelvis without Cont IMPRESSION: 1. Status post cholecystectomy and appendectomy. 2. Diffuse pancreatic atrophy. 3. Scattered colonic diverticuli with no evidence of associated diverticulitis. I cannot identify any definite evidence of colonic surgery on this study. 4. There is no evidence of nephro or ureterolithiasis, hydronephrosis, or hydroureter. 5. Enlarged prostate. 6. Tiny fat-containing umbilical hernia. 7. Status post surgical changes of the lumbar spine as detailed above. 8. Is no evidence of free intra-abdominal or intrapelvic air, fluid, or inflammatory process. Electronically Signed: Chad Alegria MD at 21:14 EDT , Service support ,
--- NOTE | 2019-07-26 20:22 | ED.VISSUMM ---
- ER Visit Summary Date of Service: 07/26/19 Chief Complaint: Left flank and left testicular pain History of Present Illness: The patient is a 73 M who presents with left flank and left testicular pain that is been getting worse over the past 2 days. Patient states the pain started in his left flank and is now down into his left testicle. Patient describes the pain as sharp. Patient states nothing makes the pain worse. Patient states he was taking pain pills that he has for his chronic back pain which have been helping somewhat. Patient states he has been having some hesitancy with urination but denies any dysuria or hematuria. Patient admits to some constipation. Patient denies any fevers but admits to subjective chills. Physical Examination: Vital signs are stable. Patient is afebrile. Patient is in no acute distress. Oral mucosa is pink and moist. Neck is supple. Trachea is midline. There is no JVD. Heart was regular rate and rhythm. Lungs are clear and equal bilaterally. Abdomen is soft. Bowel sounds are normal. There is some mild left lower quadrant tenderness. There is some mild left CVA tenderness. Genitourinary exam reveals some tenderness of the left testicle. There is no hernia noted. There is a vertical lie of the testicle. The epididymis is posterior. There is some tenderness over the epididymis. There is no urethral discharge or drainage. Test Results: CBC and comprehensive metabolic profile were obtained and were essentially within normal limits. Creatinine was 1.51 which was consistent with prior results. Urinalysis does not show any evidence of urinary tract infection. CT scan of the abdomen and pelvis was obtained. There is no ureteral or renal calculus. There is no acute intra-abdominal process. This was interpreted by the radiologist and reviewed by myself. Since the patient is still having left testicular pain a left testicular ultrasound was ordered. Emergency Department Course and Treatment: Patient was given IV fluids, morphine, and Zofran. Patient was still in severe pain. Patient was given a repeat dose of morphine. Disposition: Care of the patient was turned over to the oncoming physician. Impression: Left testicular pain This note was generated with AppSpotr dictation software. It may contain incorrect words, spelling, and punctuation that were not noted in review of the chart prior to signing ED Disposition - Plan for ED Patient: Referrals: Brent Rahman III, MD [Primary Care Provider] -
[2019-07-26 20:29] LABS: Bacteria 0 SEEN /hpf (None Seen); Mucous, Urine 0 SEEN /hpf (<or=2+); Squamous Epithelial Cells - UA 0 SEEN /hpf (0-5); White Blood Cells 0 SEEN /hpf (0-5)
[2019-07-26 20:30] LABS: Color, Urine Yellow (Yellow); Glucose, Dipstick Normal (Normal); Ketone-Dipstick Negative (Negative); Leukocyte Esterase-Dipstick Negative /ul (Negative); Nitrite-Dipstick Negative (Negative); Occult Blood-Urine 25 /ul (Negative); Protein-Dipstick 15 mg/dl (Negative); Specific Gravity, Urine 1.015 (1.002-1.030); Urine Bilirubin Dipstick Negative (Negative); Urine Clarity Clear (Clear); Urine Urobilinogen Normal (Normal)
[2019-07-26] MEDS: 0.9% Normal Saline 1,000 ML 250 ML IV (20:35)
[2019-07-26] MEDS: Morphine 4 MG/ML Syringe IV ×3 (20:36→22:45)
[2019-07-26] MEDS: Ondansetron 4 MG/2 ML Vial IV (20:36)
[2019-07-26 20:39] LABS: Red Blood Cells-Urine 0-5 SEEN /hpf (0-5)
[2019-07-26 20:50] LABS: Absolute Lymphocyte Count 2.52 X10^3/uL (0.83-4.51); Absolute Neutrophil Count 3.8 X10^3/uL (2.0-7.7); Basophil# 0.07 X10^3/uL; Basophil% 0.9 % (0-1); Eosinophil# 0.38 X10^3/uL; Eosinophils% 5.1 % (0-5); Hematocrit 37.3 % (40-54); Lymphocyte # 2.52 X10^3/ul (4.0); Lymphocyte % 34.1 % (19-41); Mean Corp Hgb Conc 32.2 g/dL (32-36); Mean Corpuscular Hgb 30.1 pg (27.0-32.0); Mean Corpuscular Volume 93.5 fL (80-94); Mean Platelet Vol. 10.1 fl (6.2-12.0); Monocyte# 0.65 X10^3/uL; Monocyte% 8.8 % (0-10); NRBC Flagged by Analyzer 0 % (0-5); Neutrophil # 3.75 X10^3/uL (2.7-7.7); Neutrophil % 50.7 % (47-70); Platelet Count 251 K/mm3 (150-450); RBC Distribution Width CV 13.2 % (11.6-14.6); RBC Distribution Width SD 45.1 fl (35.1-43.9); Red Blood Count 3.99 M/mm3 (4.6-6.2); White Blood Count 7.4 K/mm3 (4.4-11.0)
[2019-07-26 21:01] LABS: Anion Gap 9 (5-15); BUN 21 mg/dL (7-18); BUN/Creat Ratio 13.9 RATIO (10-20); Calcium,Total 9.7 mg/dL (8.5-10.1); Chloride 107 mmol/L (98-107); Creatinine, Serum 1.51 mg/dL (0.70-1.30); EST Glomerular Filtration Rate 48 mL/min (>60); Est Glom Filt Rate - Afr Amer 59 mL/min (>60); Estimated Creatinine Clearance 45.96 ml/min; Glucose 117 mg/dL (74-106); Potassium 4.3 mmol/L (3.5-5.1); Sodium Level 140 mmol/L (136-145)
--- NOTE | 2019-07-26 21:17 | US_ITS ---
Study: Ultrasound scrotum Prior study: April 30, 2019 PROCEDURE: Grayscale and color flow imaging of the scrotum was performed. FINDINGS: The right testicle measures 2.0 x 1.7 x 1.3 cm and is heterogeneous in echogenicity. Arterial and venous flow appears normal. The right epididymal head appears normal and measures 1.0 x 0.6 x 0.7 cm. There is a small loculated right hydrocele. The left testicle measures 3.6 x 2.7 x 1.6 cm. The left testicle is homogeneous in echogenicity. Left testicular arterial and venous flow appears normal. The left epididymal head measures 0.7 x 1.3 x 0.9 cm. There is increased vascularity of the left epididymal head. US/Testicular with Arterial Flow IMPRESSION: 1. Heterogeneously echogenic atrophic right testicle. 2. Small loculated right hydrocele. 3. Hyperemic left epididymal head which may represent epididymitis. Electronically Signed: Chad Alegria MD at 22:55 EDT , Service support ,
[2019-07-26 22:46] VITALS: BP 190/94; PULSE 56; RESP 22; O2SAT 100
--- NOTE | 2019-07-26 23:26 | ED.DCSUM_ITS ---
- ER Visit Summary Date of Service: 07/26/19 This patient was checked out to me with a testicular ultrasound pending. Test Results: Clinical Impression(s) from Imaging Studies Abdomen/Pelvis CT 07/26/19 20:18 IMPRESSION: 1. Status post cholecystectomy and appendectomy. 2. Diffuse pancreatic atrophy. 3. Scattered colonic diverticuli with no evidence of associated diverticulitis. I cannot identify any definite evidence of colonic surgery on this study. 4. There is no evidence of nephro or ureterolithiasis, hydronephrosis, or hydroureter. 5. Enlarged prostate. 6. Tiny fat-containing umbilical hernia. 7. Status post surgical changes of the lumbar spine as detailed above. 8. Is no evidence of free intra-abdominal or intrapelvic air, fluid, or inflammatory process. Electronically Signed: Chad Alegria MD at 21:14 EDT , Service support , Testicular Ultrasound 07/26/19 21:17 IMPRESSION: 1. Heterogeneously echogenic atrophic right testicle. 2. Small loculated right hydrocele. 3. Hyperemic left epididymal head which may represent epididymitis. Electronically Signed: Chad Alegria MD at 22:55 EDT , Service support , Emergency Department Course and Treatment: Patient was treated with Bactrim here. He is resting comfortably. Treatment Plan: Patient will be discharged with Bactrim and 10 Reynolds. He is instructed on symptomatic care. Supportive undergarments, NSAIDs, and ice. Instructed to follow-up with Dr. Coleman in 1 to 2 weeks. Return to the emergency department for any worsening symptoms. Disposition: To home in improved and stable condition. Impression: 1. Left epididymitis. This note was generated with Be-Bound dictation software. It may contain incorrect words, spelling, and punctuation that were not noted in review of the chart prior to signing ED Disposition - Plan for ED Patient: Disposition: Home or Assisted Living Instructions: ED Epididymitis Prescriptions: Smz/Tmp Ds [Bactrim Ds] 1 tab PO BID #20 tab Prescription Printed Hydrocodone Bitart/Apap 5-325 [Reynolds 5MG-325MG] 1 tab PO Q4H PRN PRN 2 Days #10 tab PRN Reason: Pain Prescription Printed Referrals: Johnathon Coleman MD [STAFF PHYSICIAN] - 1-2 Weeks
[2019-07-26 23:28] VITALS: BP 150/75; PULSE 59; RESP 15; O2SAT 98
[2019-07-26] MEDS: Smz/Tmp Ds Tablet 1 TABLET PO (23:46)
--- NOTE | 2019-07-27 10:43 | ED.RN ---
CALLED THE ER TO REQUEST THE BACTRIM PRESCRIPTION BE CALLED INTO [facility]. THIS NURSE SPOKE WITH DR WELCH WHO AGREED TO CALL IN THE PRESCRIPTION FOR BACTRIM. INFORMED OF THE SAME
== END 2019-07-27 00:05 | disposition home or self-care (01) ==
LOC: ED 20:20
PROVIDERS: Emergency Provider Emergency Medicine; PCP Family Medicine
DX: N50.812 Left testicular pain (principal); N45.1 Epididymitis; I25.10 Atherosclerotic heart disease of native coronary artery without angina pectoris
CPT/HCPCS: 74176; 76870; 80048; 81001; 85025; 93976; 96361; 96374; 96375; 96376; 99285; J7030; J2405

== ENCOUNTER 2019-08-19 02:15 | Inpatient (IN) | payer MEDICARE, OTHER, SELFPAY ==
[2019-08-06 10:54] VITALS: BMI 22.7
[2019-08-19] VITALS (14 sets, daily range): BP systolic 102–138; BP diastolic 59–80; PULSE 63–91; RESP 13–18; TEMP 36.3–36.7; O2SAT 95–98; BMI 23.0; BMI 22.9
--- NOTE | 2019-08-19 02:31 | EKG12_ITS ---
Test Reason : WEAKNESS Blood Pressure : / mmHG Vent. Rate : 078 BPM Atrial Rate : 078 BPM P-R Int : 154 ms QRS Dur : 080 ms QT Int : 360 ms P-R-T Axes : 037 028 041 degrees QTc Int : 410 ms Normal sinus rhythm Normal ECG Confirmed by FELIX HAWK, MARNI ([id number]), photograph editor POPEYE CARDENAS ([id number]) on 08/24/2019 10:52:17 AM Referred By: HANNAH Confirmed By:LENNIE WASHINGTON MD
--- NOTE | 2019-08-19 02:34 | ED.DCSUM_ITS ---
History of Present Illness Chief Complaint: Weakness Informant: Patient Narrative: Stated he has had generalized weakness for the last 2 weeks . He went to his doctor yesterday [place] lab work which showed an elevation of BUN at 46 and creatinine at 2.0. His sodium was mildly low at 133. His potassium was high at 6.7. His bicarb was 13. His TSH was 6.1. He was sent in for further evaluation acutely due to his acute renal insufficiency as well as his hyperkalemia. He has had this happen in the past in 2014. At that time he had accidentally overdosed on medication and responded to fluids. His renal insufficiency resolved a day later and he was discharged as well as his hyperkalemia. Patient denies any chest pain or shortness of breath or other symptoms. Does have a history of coronary artery disease - Past Medical History (1) Peripheral arterial occlusive disease Status: Acute (2) Atherosclerotic heart disease of [place] coronary artery without angina pectoris Status: Chronic (3) Long-term use of high-risk medication Status: Chronic (4) Mixed hyperlipidemia Status: Chronic (5) Presence of stent in coronary artery Status: Chronic Comment: cardiac cath (left) March 1996, w/ PCI-Stent Mid LAD 1995, [facility] w/ [id number] LAD 05/19/10; [facility] w/PCI and DENTON to proximal and distal LAD 12/07/15 (6) Status post placement of implantable loop recorder Status: Chronic (7) Type II diabetes mellitus Status: Chronic (8) Syncope and collapse Status: Resolved Past Medical History - Allergies and Home Meds Allergies/Adverse Reactions: Allergies iodine Allergy (Unknown, Verified 08/19/19 02:16) convulsions codeine Allergy (Verified 08/19/19 02:16) Itching Primary Care Physician: Brent Rahman III, MD [Primary Care Provider] - Prior records reviewed: Yes Past Medical History: - - See problem list Surgical History: noncontributory, appendectomy, cholecystectomy, tonsillectomy Lives: With Family Smoking Status: Former smoker Alcohol: None Drugs: None - Family History Sibling Family History: Family History (Last Reviewed 05/11/19 @ 10:37 by Viktoriya Lopez) Father FH: congestive heart failure Mother FH: aneurysm Brother CVA (cerebral vascular accident) Brother Cancer Family History: Reports: Cancer Maternal Family History: Family History (Last Reviewed 05/11/19 @ 10:37 by Viktoriya Lopez) Father FH: congestive heart failure Mother FH: aneurysm Brother CVA (cerebral vascular accident) Brother Cancer Family History: Reports: No pertinent history Paternal Family History: Family History (Last Reviewed 05/11/19 @ 10:37 by Viktoriya Lopez) Father FH: congestive heart failure Mother FH: aneurysm Brother CVA (cerebral vascular accident) Brother Cancer Family History: Reports: Diabetes Review of Systems General: Denies: Chills, Fever, Sweats Eyes: Denies: Visual changes - bilaterally, Diplopia ENT: Denies: Rhinorrhea, Sore throat Cardiovascular: Denies: Chest pain, Palpitations Respiratory: Denies: Dyspnea, Cough, Dyspnea on exertion Gastrointestinal: Denies: Abdominal pain, Nausea, Vomiting, Diarrhea, Melena, Hematochezia Genitourinary: Denies: Dysuria, Hematuria, Frequency Musculoskeletal: Denies: Back pain, Extremity Pain Skin: Denies: Rash, Wounds Neurological: Reports: Weakness. Denies: Headache, Numbness Physical Exam Vital Signs/Narrative: Vital Signs Temp Pulse Resp BP Pulse Ox 08/19/19 02:16 97.5 F L 79 13 106/76 98 General: Well nourished, Well developed, No Acute Distress Head: Normocephalic, Atraumatic Eyes: Perrl, EOMI ENT: Moist mucous membranes, No rhinorrhea Neck: Supple, Nontender Cardiovascular: Regular rate, Regular rhythm, No murmurs Respiratory: No distress, CTA bilaterally, Chest nontender Abdomen: Soft, Nontender, Nondistended, Normal bowel sounds Back: Nontender, Normal Inspection Extremities: Nontender, No edema Skin: Normal color, No rash Neurological: Alert, Oriented x3, Cranial nerves II-XII grossly intact, Normal Strength, Normal Sensation Psychological: Normal affect, Normal Mood Diagnostic/Tx/Re-eval - Medical Decision Making Patient given IV fluids. Lab work obtained. EKG obtained. EKG showed normal sinus rhythm at 78 with no widening or peaked T waves from his hyperkalemia. Lab work shows a potassium elevation of 5.8. This is down from his outpatient level. Creatinine is 1.8 indicating acute renal insufficiency likely secondary to from dehydration. IV fluids and Kayexalate. At this time I do not feel he needs calcium as he has no EKG changes and fluids should fix this as I suspect this is dehydration related. Patient was also given an oral meal with sandwich and milk for acute upper glycemia in the 50s. He was asymptomatic and I suspect this is from decreased caloric intake while taking an oral hypoglycemic. Patient resting comfortably without symptoms. I did order a urine analysis which is pending. Is unable to give a sample just yet. The hospitalist will follow up on this. Free thyroid levels were both low. I suspect he has new onset hypothyroidism. Discussed with the hospitalist who will check a cortisol level prior to to initiating therapy. - Critical Care Time Critical care time (excluding procedures): 30-74 minutes ED Disposition - Plan for ED Patient: Disposition: Acute Care Hospital [facility] Diagnosis: Hyperkalemia, Renal failure, Dehydration, Hypothyroidism, Hypoglycemia
[2019-08-19] MEDS: 0.9% Normal Saline 1,000 ML 1000 ML IV (02:56)
[2019-08-19 03:19] LABS: Absolute Lymphocyte Count 2.49 X10^3/uL (0.83-4.51); Absolute Neutrophil Count 3.2 X10^3/uL (2.0-7.7); Basophil# 0.06 X10^3/uL; Basophil% 0.9 % (0-1); Eosinophil# 0.16 X10^3/uL; Eosinophils% 2.5 % (0-5); Hematocrit 36.1 % (40-54); Hemoglobin 11.2 g/dL (13.0-16.5); Lymphocyte # 2.49 X10^3/ul (4.0); Lymphocyte % 38.6 % (19-41); Mean Corpuscular Hgb 30.1 pg (27.0-32.0); Mean Platelet Vol. 9.8 fl (6.2-12.0); Monocyte# 0.55 X10^3/uL; Monocyte% 8.5 % (0-10); NRBC Flagged by Analyzer 0 % (0-5); Neutrophil # 3.16 X10^3/uL (2.7-7.7); Platelet Count 203 K/mm3 (150-450); RBC Distribution Width CV 13.1 % (11.6-14.6); RBC Distribution Width SD 47.2 fl (35.1-43.9); Red Blood Count 3.72 M/mm3 (4.6-6.2); White Blood Count 6.5 K/mm3 (4.4-11.0)
[2019-08-19 03:24] LABS: Anion Gap 8 (5-15); BUN 42 mg/dL (7-18); BUN/Creat Ratio 22.5 RATIO (10-20); Calcium,Total 8.8 mg/dL (8.5-10.1); Chloride 114 mmol/L (98-107); Creatinine, Serum 1.87 mg/dL (0.70-1.30); EST Glomerular Filtration Rate 38 mL/min (>60); Est Glom Filt Rate - Afr Amer 46 mL/min (>60); Estimated Creatinine Clearance 37.78 ml/min; Free T3 1.5 pg/mL (2.18-3.98); Glucose 54 mg/dL (74-106); Potassium 5.8 mmol/L (3.5-5.1); Sodium Level 139 mmol/L (136-145); T4 Free Direct 0.63 ng/dL (0.76-1.46)
--- NOTE | 2019-08-19 03:28 | NURSING ---
blood sugar 54. milk and sandwhich given
[2019-08-19] MEDS: Sodium Polystyrene Sulfonate 15 GM/60 ML UDC 30 GM PO (03:44)
--- NOTE | 2019-08-19 03:45 | HP.PCM_ITS ---
Problem List (1) Generalized weakness Status: Acute (2) Hypothyroidism Status: Acute (3) Hyperkalemia Status: Acute (4) BREE (acute kidney injury) Status: Acute (5) Peripheral arterial occlusive disease Status: Inactive History of Present Illness Date of Admission: 08/19/19 Chief Complaint: Elevated potassium level on outpatient lab. The patient is a 73 year old M with a significant history of diabetes mellitus who presented to emergency department with Elevated potassium level on ou tpatient lab. Patient went to his PCPs office because of general weakness that has been going on for about 2 to 3 weeks. His general weakness has been persistent. Patient reported he had back surgery on June 2019. After his back surgery he was able to walk. However he has now developed generalized weakness as stated above. At his PCPs office his BUN was found to be 46 ; his creatinine was 2.03. His sodium was 133; and his potassium was 6.7. Further his chloride was 108 and his bicarbonate was 13. At emergency department his potassium was 5.8. His glucose was 54. Patient was given sandwich and milk after which his accu-chek was read 40. Subsequently patient was given an amp of D50. Because of his elevated potassium was given Kayexalate and MiraLAX. His free T4 and is free 3 3 was found to be low. Patient was given IV fluid bolus at the emergency department. Past Medical History Past Medical History (Chronic Problems): Chronic Problems (Last Reviewed 08/19/19 @ 05:[address] Jayce Barclay MD) Mixed hyperlipidemia (Chronic) Long-term use of high-risk medication (Chronic) Presence of stent in coronary artery (Chronic ~12/07/15) cardiac cath (left) March 1996, w/ PCI-Stent Mid LAD 1995, [facility] w/ [id number] LAD 05/19/10; [facility] w/PCI and DENTON to proximal and distal LAD 12/07/15 Atherosclerotic heart disease of [place] coronary artery without angina pectoris (Chronic) Status post placement of implantable loop recorder (Chronic) Type II diabetes mellitus (Chronic) Medical History: Medical History (Last Reviewed 08/19/19 @ 05:[address] Jayce Barclay MD) Mixed hyperlipidemia (Chronic) E78.2 Peripheral arterial occlusive disease (Acute) I77.9 Long-term use of high-risk medication (Chronic) Z79.899 Atherosclerotic heart disease of [place] coronary artery without angina pectoris (Chronic) I25.10 Status post placement of implantable loop recorder (Chronic) Z95.818 Syncope and collapse (Resolved) R55 Type II diabetes mellitus (Chronic) E11.9 Ankle fracture S82.899A Depression F32.9 History of pulmonary embolism Z86.711 Chronic back pain M54.9, G89.29 Acute renal failure (Inactive) Altered mental status (Inactive) R41.82 Diverticulitis large intestine (Inactive) K57.32 Hyperkalemia (Inactive) E87.5 Orthostatic hypotension (Inactive) I95.1 Severe sepsis with acute organ dysfunction (Inactive) A41.9, R65.20 Allergies iodine Allergy (Unknown, Verified 08/19/19 02:16) convulsions codeine Allergy (Verified 08/19/19 02:16) Itching Home Medications: Ambulatory Orders Medication Instructions Recorded Aspirin [Aspirin, Baby] 81 mg PO DAILY@0800 09/30/16 omeprazole 20 mg capsule,delayed 20 mg PO DAILY 05/15/18 release atorvastatin 80 mg tablet 80 mg PO QHS #90 tab 11/10/18 glimepiride 4 mg tablet 8 mg PO DAILY tab 05/11/19 metformin 500 mg tablet 1,000 mg PO DAILY tab 05/11/19 trazodone 300 mg tablet 300 mg PO DAILY tab 05/11/19 Surgical History: Surgical History (Last Reviewed 08/19/19 @ 05:[address] Jayce Barclay MD) Presence of stent in coronary artery (Chronic) Onset Date: ~12/07/15 Z95.5 cardiac cath (left) March 1996, w/ PCI-Stent Mid LAD 1995, [facility] w/ [id number] LAD 05/19/10; [facility] w/PCI and DENTON to proximal and distal LAD 12/07/15 Postsurgical percutaneous transluminal coronary angioplasty (PTCA) status Z98.61 cardiac cath (left) March 1996, w/ PCI-Stent Mid LAD 1995, [facility] w/ PCI-DENTON- Distal LAD 05/19/10; [facility] w/PCI and DENTON to proximal and distal LAD 12/07/15 History of appendectomy Z90.49 History of cholecystectomy Z90.49 History of hernia repair Z98.890, Z87.19 History of laminectomy Z98.890 L2-L3 posterolateral fixation & fusion with decompressive laminectomy & facetectomy with bilateral forminotomies 10/11 Surgical History: appendectomy, cholecystectomy, tonsillectomy Psychiatric History: No pertinent psych hx Lives: With Family Smoking Status: Former smoker Tobacco Use: Non-smoker Alcohol: None Drugs: None - *Family History Sibling Family History: Family History (Last Reviewed 08/19/19 @ 05:[address] Jayce Barclay MD) Father FH: congestive heart failure Mother FH: aneurysm Brother CVA (cerebral vascular accident) Brother Cancer History Items: Cancer Maternal Family History: Family History (Last Reviewed 08/19/19 @ 05:[address] Jayce Barclay MD) Father FH: congestive heart failure Mother FH: aneurysm Brother CVA (cerebral vascular accident) Brother Cancer Paternal Family History: Family History (Last Reviewed 08/19/19 @ 05:[address] Jayce Barclay MD) Father FH: congestive heart failure Mother FH: aneurysm Brother CVA (cerebral vascular accident) Brother Cancer History Items: Diabetes Review of Systems Constitutional: Reports: Chills, Weakness. Denies: Fever HEENT: Denies: Head Aches, Sinus Congestion, Sinus Drainage Cardiovascular: Denies: Chest Pain, Palpitations Respiratory: Denies: Cough, Shortness of breath at rest, Sputum production Gastrointestinal: Denies: Abdominal Pain, Nausea, Vomiting Genitourinary: Denies: Dysuria Musculoskeletal: Denies: Joint Pain, Joint Tenderness Skin: Denies: Rash, Wounds Neurological: Denies: Numbness, Tingling, Focal weakness Psychiatric: Denies: Anxiety, Depression, Homicidal Ideations, Suicidal Ideations Hematologic/ Lymphatic: Denies: Easy Bruising, Easy Bleeding VTE Information - Inpt Only VTE Present on Admission: No VTE Mechan Device Prophylaxis: None VTE Pharm Prophylaxis ordered?: Yes - Physical Exam Vitals/I&O's: Vital Signs Temp Pulse Resp BP Pulse Ox 97.5 F L 79 13 106/76 98 08/19/19 02:16 08/19/19 02:16 08/19/19 02:16 08/19/19 02:16 08/19/19 02:16 Oxygen Delivery Method Room Air Weight: 74.8 kg Body Mass Index (BMI) 23.0 Finger Stick Blood Glucose 204 General: Alert, Oriented x3, Cooperative HEENT: Atraumatic, PERRLA, EOMI, Normocephalic Neck: Supple, No JVD, Negative Carotid Bruits Lungs: Normal air movement, No rhonchi, No wheeze, No rales, Diminished Cardiovascular: Regular rate, Normal S1, Normal S2, No murmurs Abdomen: Bowel Sounds Present, Soft, Non Tender Extremities: No edema, Capillary Refill Less than 3 Seconds Skin: No rashes, No breakdown Musculoskeletal: No Tenderness to Palpation of Joints or Extremities Neurological: Cranial nerves II-XII grossly intact Psych/Mental Status: Normal Affect, Appropriate Laboratory Results 08/19/19 03:05: WBC 6.5, RBC 3.72 L, Hgb 11.2 L, Hct 36.1 L, MCV 97.0 H, MCH 30.1, MCHC 31.0 L, RDW Std Deviation 47.2 H, RDW Coeff of Sylvester 13.1, Plt Count 203, MPV 9.8, Immature Gran % (Auto) 0.500, Neut % (Auto) 49.0, Lymph % (Auto) 38.6, [place] % (Auto) 8.5, Eos % (Auto) 2.5, Baso % (Auto) 0.9, Absolute Neuts (auto) 3.2, Absolute Lymphs (auto) 2.49, Nucleated RBC % 0 08/19/19 03:05: Sodium 139, Potassium 5.8 H, Chloride 114 H, Carbon Dioxide 17.0 L, Anion Gap 8, BUN 42 H, Creatinine 1.87 H, Estim Creat Clear Calc 37.78, Est GFR (MDRD) Af Amer 46 L, Est GFR (MDRD) Non-Af 38 L, BUN/Creatinine Ratio 22.5 H , Glucose 54 L, Calcium 8.8, Troponin I < 0.015, Free T4 0.63 L, Free T3 pg/dL 1.5 L Assessment/Plan All Active Problems (Last Reviewed 08/19/19 @ 05:[address] Jayce Barclay MD) Hyperkalemia (Acute) Renal failure (Acute) Dehydration (Acute) Hypothyroidism (Acute) Hypoglycemia (Acute) Generalized weakness (Acute) BREE (acute kidney injury) (Acute) Syncope and collapse (Resolved) The patient is a 73 year old M with a significant history of diabetes mellitus who presented to emergency department with generalized weakness; elevated potassium; low thyroid level and hypoglycemia. Hyperkalemia Potassium on outpatient lab was 6.7; repeat at the emergency department was 5.8. Likely secondary to BREE. Received IV hydration at the emergency department. Because of hypoglycemia will start patient on D5 normal saline at 100 mL's per hour. Trend BMP. Received Kayexalate and MiraLAX. 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 Admission presentation was 1.87. Baseline creatinine is around 1.5. IV hydration as above. Low potassium diet. Trend BMP. Get ultrasound of bladder and kidney. Dehydration Patient with elevated BUN Management as an BREE on CKD. Generalized weakness PT and OT to work with patient for balance training and strengthening Hypothyroidism Patient with elevated TSH on outpatient lab and low free T4 and low free T3. Get cortisol level before treating for hypothyroidism. Get Total T4 level. Hypoglycemia Likely secondary to BREE which has decreased clearance of insulin. Hold home glimepiride and metformin. Given sandwich and milk in emergency department. Received an amp of dextrose at emergency department. D5 in normal saline infusion ordered. Accucheck every one hour until blood glucose is more than 80; and then every 2 hours until blood glucose is more than 120; and then every 4 hours. Follow hypoglycemia protocol for low blood glucose and notify . DVT Prophylaxis Subcutaneous heparin. Inpatient E&M: 66705 Init Hosp L3
[2019-08-19] MEDS: Dextrose 50%-Water 25 GM/50 ML DISP.SYRIN IV (04:21)
--- NOTE | 2019-08-19 04:30 | ED.RN ---
PT REFUSED TO HAVE NOTIFIED
[2019-08-19 04:36] LABS: Bacteria 0 SEEN /hpf (None Seen); Mucous, Urine 0 SEEN /hpf (<or=2+); Red Blood Cells-Urine 0 SEEN /hpf (0-5); Squamous Epithelial Cells - UA 0 SEEN /hpf (0-5); White Blood Cells 0 SEEN /hpf (0-5)
[2019-08-19 04:38] LABS: Color, Urine Yellow (Yellow); Glucose, Dipstick 50 mg/dl (Normal); Ketone-Dipstick Negative (Negative); Leukocyte Esterase-Dipstick Negative /ul (Negative); Nitrite-Dipstick Negative (Negative); Occult Blood-Urine Negative /ul (Negative); Protein-Dipstick Negative (Negative); Specific Gravity, Urine 1.015 (1.002-1.030); Urine Bilirubin Dipstick Negative (Negative); Urine Clarity Sl. Cloudy (Clear); Urine Urobilinogen Normal (Normal)
[2019-08-19 04:46] LABS: Amorphous Sediment 1+
--- NOTE | 2019-08-19 05:02 | US_ITS ---
STUDY: RENAL ULTRASOUND - COMPLETE REASON FOR EXAM: Male, 73 years old. BREE TECHNIQUE: Ultrasound evaluation of the kidneys was performed with real-time and static chavez-scale imaging. COMPARISON: Comparison is made with prior CT scan dated July 26, 2019. FINDINGS: RIGHT KIDNEY: Normal location of the right kidney, which is normal in size. The right kidney measures 10 cm x 6 cm x 5.3 cm. There is a normal cortex of the right kidney. The renal cortex measures 1.6 cm. There is no right renal mass or cyst. There are no right renal calculi. There is no right hydronephrosis. DISTAL RIGHT URETER: There is non-visualization of the distal right ureter. There is no demonstrated right ureterovesical junction calculus. There is a visualized right ureteral jet. LEFT KIDNEY: Normal location of the left kidney, which is normal in size. The left kidney measures 11 cm x 4.3 cm x 6.4 cm. There is a normal cortex of the left kidney. The renal cortex measures 1.6 cm. There is no left renal mass or cyst. There are no left renal calculi. There is no left hydronephrosis. DISTAL LEFT URETER: There is non-visualization of the distal left ureter. There is no demonstrated left ureterovesical junction calculus. There is a visualized left ureteral jet. BLADDER: The distended urinary bladder has a volume of 272 ml. There is a normal wall thickness of the distended urinary bladder. There is no demonstrated mass within the urinary bladder. There are no demonstrated bladder calculi. The prostate is enlarged measuring 6.2 cm x 3.9 cm x 3.7 cm. This causes indentation at the bladder base. US/Kidney and Bladder IMPRESSION: Normal ultrasound of the kidneys and urinary bladder. Prostatic enlargement with indentation at the bladder base. Electronically Signed: Boo Sams, at 8:25 EDT , Service support ,
[2019-08-19] MEDS: Dextrose 5%/0.9% NaCl 1,000 ML 100 ML IV (05:35)
[2019-08-19] MEDS: Heparin Injection (Vial) 5,000 UNIT/ML VIAL 5000 UNIT SC ×3 (05:35→20:35)
[2019-08-19 05:45] LABS: Bedside Glucose 129 mg/dL (70-110)
--- NOTE | 2019-08-19 07:34 | PCM.PN.BLA ---
Progress Note Patient is a 73-year-old with multiple comorbidities admitted with abnormal labs. Patient was found to have elevated potassium level admitted to a monitored bed for further management 1. Hyperkalemia 2. Diabetes mellitus type 2 with complications including diabetic nephropathy 3. Dyslipidemia 4. CAD with previous stent placement Patient seen and examined. His initial assessment including history physical, diagnostic data and management orders reviewed will follow. STROKE Vital Signs/Narrative: Vital Signs Temp Pulse Resp BP Pulse Ox 08/19/19 05:13 73 08/19/19 05:04 97.5 F L 73 16 111/69 97 08/19/19 04:23 97.9 F 80 16 122/80 H 95 08/19/19 03:45 82 17 105/72 98
[2019-08-19] MEDS: Pantoprazole Sodium 20 MG Tablet PO (08:30)
[2019-08-19] MEDS: Aspirin 81 MG TAB.CHEW PO (08:30)
[2019-08-19 08:41] LABS: Anion Gap 8 (5-15); BUN 40 mg/dL (7-18); Calcium,Total 8.6 mg/dL (8.5-10.1); Chloride 116 mmol/L (98-107); Creatinine, Serum 1.67 mg/dL (0.70-1.30); EST Glomerular Filtration Rate 43 mL/min (>60); Est Glom Filt Rate - Afr Amer 52 mL/min (>60); Glucose 117 mg/dL (74-106); Magnesium 1.6 mg/dL (1.6-2.6); Sodium Level 141 mmol/L (136-145); T4 Total, Thyroxin 4.2 ug/dL (4.5-12.1)
[2019-08-19 09:16] LABS: Bedside Glucose 31 mg/dL (70-110)
[2019-08-19 09:16] LABS: Bedside Glucose 40 mg/dL (70-110)
[2019-08-19 09:25] LABS: Bedside Glucose 120 mg/dL (70-110)
--- NOTE | 2019-08-19 10:29 | PCM.CONS.R ---
Problem List (1) Hyperkalemia Status: Acute (2) BREE (acute kidney injury) Status: Acute Consultation - Renal 08/19/19 PCP/ Referring MD: Requesting physician: [] Primary care physician: Brent Rahman III, MD Reason for Consultation:: BREE, hyperkalemia - History of Present Illness History of Present Illness: The patient is a 73 year old M who was sent to the hospital with complaints of hyperkalemia. We will consulted for acute renal failure and hyperkalemia. I reviewed his records from primary care physician's office. Known history of diabetes on medications as below. HbA1c is generally acceptable. About a month ago he had low back surgery at [facility]. Currently denies any complaints. Routine blood work was drawn which showed acute renal failure with a creatinine of 2 and hyperkalemia with a potassium of 6.7. It seems he did have borderline high potassium values for the last 2 months. He was on lisinopril but this was discontinued as outpatient He was taking naproxen for low back pain but has not taken it since the back surgery Recently diagnosed with epididymitis, apparently this was treated with ciprofloxacin and Bactrim Denies eating large amounts of potassium containing foods. - Allergies Allergies: Allergies iodine Allergy (Unknown, Verified 08/19/19 02:16) convulsions codeine Allergy (Verified 08/19/19 02:16) Itching - Current Medications Current Medications: Current Medications Acetaminophen (Tylenol) 650 mg PO Q6H PRN PRN PRN Reason: Pain Score 1-10/Temp > 100.7 F Aspirin (Aspirin, Baby) 81 mg PO DAILY@0800 [facility] Last Admin: 08/19/19 08:30 Dose: 81 mg Documented by: Atorvastatin Calcium (Lipitor) 80 mg PO QHS [facility] Dextrose (D50w Syringe) 0 gm IV X1 PRN; Protocol PRN Reason: Hypoglycemia Glucagon () 1 mg IM .X1 PRN PRN Reason: Hypoglycemia Heparin Sodium (Porcine) (Heparin Na) 5,000 unit SC Q8 [facility] Last Admin: 08/19/19 05:35 Dose: 5,000 unit Documented by: Sodium Chloride () 250 mls @ 15 mls/hr IV .[id number] PRN PRN Reason: Saline Flush Sodium Chloride () 250 mls @ 15 mls/hr IV .[id number] PRN PRN Reason: Additional IVPB Infusion Dextrose/Sodium Chloride (Dextrose 5%/0.9% Nacl) 1,000 mls @ 100 mls/hr IV .Q10H JEANINE Stop: 08/19/19 15:01 Last Admin: 08/19/19 05:35 Dose: 100 mls/hr Documented by: Sodium Bicarbonate 150 meq/ (Dextrose) 1,150 mls @ 100 mls/hr IV .[id number] [facility] Ondansetron HCl (Zofran) 4 mg IV Q8H PRN PRN PRN Reason: NAUSEA/VOMITING Pantoprazole Sodium (Protonix) 20 mg PO DAILY [facility] Last Admin: 08/19/19 08:30 Dose: 20 mg Documented by: Sodium Chloride () 10 - 40 ml IV UD PRN PRN Reason: SALINE FLUSH Trazodone HCl (Desyrel) 300 mg PO DAILY@2200 [facility] - Past Medical History Past Medical History (Chronic Problems): Chronic Problems (Last Reviewed 08/19/19 @ 05:[address] Jayce Barclay MD) Mixed hyperlipidemia (Chronic) Long-term use of high-risk medication (Chronic) Presence of stent in coronary artery (Chronic ~12/07/15) cardiac cath (left) March 1996, w/ PCI-Stent Mid LAD 1995, [facility] w/ [id number]-[place] LAD 05/19/10; [facility] w/PCI and DENT[place] to proximal and distal LAD 12/07/15 Atherosclerotic heart disease of [place] coronary artery without angina pectoris (Chronic) Status post placement of implantable loop recorder (Chronic) Type II diabetes mellitus (Chronic) - Past Surgical History Surgical History: appendectomy, cholecystectomy, tonsillectomy - Social History Smoking Status: Former smoker Alcohol: None Drugs: None - Family History Sibling Family History: Family History (Last Reviewed 08/19/19 @ 05:[address] Jayce Barclay MD) Father FH: congestive heart failure Mother FH: aneurysm Brother CVA (cerebral vascular accident) Brother Cancer History Items: Cancer Maternal Family History: Family History (Last Reviewed 08/19/19 @ 05:[address] Jayce Barclay MD) Father FH: congestive heart failure Mother FH: aneurysm Brother CVA (cerebral vascular accident) Brother Cancer History Items: No pertinent history Paternal Family History: Family History (Last Reviewed 08/19/19 @ 05:[address] Jayce Barclay MD) Father FH: congestive heart failure Mother FH: aneurysm Brother CVA (cerebral vascular accident) Brother Cancer History Items: Diabetes Review of Systems Constitutional: Denies: Chills, Fever, Weight Change HEENT: Denies: Head Aches, Sinus Congestion, Sinus Drainage Cardiovascular: Denies: Chest Pain, Palpitations Respiratory: Denies: Cough, Shortness of breath at rest, Sputum production Gastrointestinal: Denies: Abdominal Pain, Nausea, Vomiting Genitourinary: Denies: Dysuria Musculoskeletal: Denies: Joint Pain, Joint Tenderness Skin: Denies: Rash, Wounds Neurological: Denies: Numbness, Tingling, Focal weakness Psychiatric: Denies: Anxiety, Depression, Homicidal Ideations, Suicidal Ideations Hematologic/ Lymphatic: Denies: Easy Bruising, Easy Bleeding Patient Problems: Active and Suspected Problems (Last Reviewed 08/19/19 @ 05:[address] Jayce Barclay MD) Hyperkalemia (Acute) Renal failure (Acute) Dehydration (Acute) Hypothyroidism (Acute) Hypoglycemia (Acute) - Physical Exam Vitals/I&O's: Vital Signs Temp Pulse Resp BP Pulse Ox 97.4 F L 85 18 106/66 95 08/19/19 08:19 08/19/19 08:19 08/19/19 08:19 08/19/19 08:19 08/19/19 09:18 Oxygen Delivery Method Room Air Weight: 74.616 kg Body Mass Index (BMI) 22.9 Finger Stick Blood Glucose 204 Intake and Output for Last 24 Hours 08/17/19 08/18/19 08/19/19 23:59 23:59 23:59 Intake Total 1000 / 1000 Output Total 200 / 200 Balance 800 / 800 General: Alert, Oriented x3, Cooperative HEENT: Atraumatic, PERRLA, EOMI, Normocephalic Neck: Supple, No JVD, Negative Carotid Bruits Lungs: Clear to auscultation, Normal air movement Cardiovascular: Regular rate, No murmurs Abdomen: Bowel Sounds Present, Soft, Non Tender Extremities: No edema, Capillary Refill Less than 3 Seconds Skin: No rashes, No breakdown Musculoskeletal: No Tenderness to Palpation of Joints or Extremities Neurological: Cranial nerves II-XII grossly intact Psych/Mental Status: Normal Affect, Appropriate Laboratory Results 08/19/19 03:05: WBC 6.5, RBC 3.72 L, Hgb 11.2 L, Hct 36.1 L, MCV 97.0 H, MCH 30.1, MCHC 31.0 L, RDW Std Deviation 47.2 H, RDW Coeff of Sylvester 13.1, Plt Count 203, MPV 9.8, Immature Gran % (Auto) 0.500, Neut % (Auto) 49.0, Lymph % (Auto) 38.6, [place] % (Auto) 8.5, Eos % (Auto) 2.5, Baso % (Auto) 0.9, Absolute Neuts (auto) 3.2, Absolute Lymphs (auto) 2.49, Nucleated RBC % 0 08/19/19 03:05: Sodium 139, Potassium 5.8 H, Chloride 114 H, Carbon Dioxide 17.0 L, Anion Gap 8, BUN 42 H, Creatinine 1.87 H, Estim Creat Clear Calc 37.78, Est GFR (MDRD) Af Amer 46 L, Est GFR (MDRD) Non-Af 38 L, BUN/Creatinine Ratio 22.5 H, Glucose 54 L, Calcium 8.8, Troponin I < 0.015, Free T4 0.63 L, Free T3 pg/dL 1.5 L 08/19/19 04:14: POC Glucose 31 L* 08/19/19 04:16: POC Glucose 40 L* 08/19/19 04:30: Urine Color Yellow, Urine Clarity Sl. Cloudy, Urine pH 6.0, Ur Specific [place] 1.015, Urine Protein Negative, Urine Glucose (UA) 50 H, Urine Ketones Negative, Urine Occult Blood Negative, Urine Nitrite Negative, Urine Bilirubin Negative, Urine Urobilinogen Normal, Ur Leukocyte Esterase Negative, Urine RBC 0 SEEN, Urine WBC 0 SEEN, Ur Squamous Epith Cells 0 SEEN, Amorphous Sediment 1+, Urine Bacteria 0 SEEN, Urine Mucus 0 SEEN 08/19/19 04:54: POC Glucose 129 H 08/19/19 07:00: Sodium 141, Potassium 6.0 H*, Chloride 116 H, Carbon Dioxide 17.0 L, Anion Gap 8, BUN 40 H, Creatinine 1.67 H, Estim Creat Clear Calc 42.20, Est GFR (MDRD) Af Amer 52 L, Est GFR (MDRD) Non-Af 43 L, BUN/Creatinine Ratio 24.0 H, Glucose 117 H, Calcium 8.6, Magnesium 1.6, Thyroxine (T4) 4.2 L 08/19/19 07:00: Cortisol 19.30 08/19/19 09:18: POC Glucose 120 H Current Medications Acetaminophen (Tylenol) 650 mg PO Q6H PRN PRN PRN Reason: Pain Score 1-10/Temp > 100.7 F Aspirin (Aspirin, Baby) 81 mg PO DAILY@0800 [facility] Last Admin: 08/19/19 08:30 Dose: 81 mg Documented by: Atorvastatin Calcium (Lipitor) 80 mg PO QHS [facility] Dextrose (D50w Syringe) 0 gm IV X1 PRN; Protocol PRN Reason: Hypoglycemia Glucagon () 1 mg IM .X1 PRN PRN Reason: Hypoglycemia Heparin Sodium (Porcine) (Heparin Na) 5,000 unit SC Q8 [facility] Last Admin: 08/19/19 05:35 Dose: 5,000 unit Documented by: Sodium Chloride () 250 mls @ 15 mls/hr IV .[id number] PRN PRN Reason: Saline Flush Sodium Chloride () 250 mls @ 15 mls/hr IV .[id number] PRN PRN Reason: Additional IVPB Infusion Dextrose/Sodium Chloride (Dextrose 5%/0.9% Nacl) 1,000 mls @ 100 mls/hr IV .Q10H [facility] Stop: 08/19/19 15:01 Last Admin: 08/19/19 05:35 Dose: 100 mls/hr Documented by: Sodium Bicarbonate 150 meq/ (Dextrose) 1,150 mls @ 100 mls/hr IV .[id number] [facility] Ondansetron HCl (Zofran) 4 mg IV Q8H PRN PRN PRN Reason: NAUSEA/VOMITING Pantoprazole Sodium (Protonix) 20 mg PO DAILY [facility] Last Admin: 08/19/19 08:30 Dose: 20 mg Documented by: Sodium Chloride () 10 - 40 ml IV UD PRN PRN Reason: SALINE FLUSH Trazodone HCl (Desyrel) 300 mg PO DAILY@2200 [facility] Assessment/Plan All Active Problems (Last Reviewed 08/19/19 @ 05:[address] Jayce Barclay MD) Hyperkalemia (Acute) Renal failure (Acute) Dehydration (Acute) Hypothyroidism (Acute) Hypoglycemia (Acute) Generalized weakness (Acute) BREE (acute kidney injury) (Acute) Syncope and collapse (Resolved) Acute renal failure. It seems she has early CKD stage III with baseline creatinine between 1.0-1.5. Over the last 2 to 3 months, creatinine has slowly increased.? Hemodynamic. Denies any obstructive symptoms. We will check a renal ultrasound to make sure there is no obstructive disease. Hyperkalemia. This is somewhat unexplained. He does have consistent non-gap acidosis. Denies any diarrhea. He was on lisinopril, Bactrim, and states but these were all discontinued within the last 1 to 2 months. Denies eating large amounts of potassium containing foods. For now we will change his fluids to IV bicarbonate. We will probably send him home on oral bicarbonate. He did receive Kayexalate for this morning We will follow Thank you
--- NOTE | 2019-08-19 11:06 | CASEMGMT ---
YOSEPH ALVA assessment: Face to Face with patient for initial transition planning/care coordination assessment. YOSEPH ALVA introduced self and role at [facility], pt voices understanding and consents to assessment at this time. Pt is lying in bed in no distress at this time. Pt is A/Ox4 at this time and answers all questions appropriately at this time. Care providers, pharmacy, and demographics verified at this time. Presentation: Weakness [id number], seen by PCP and bloodwork completed. Pt then called to come in after result of K+6.7 Admitting dx: Hyperkalemia PCP: Lacey DEVINE Specialists: Ben cardio Preferred Pharmacy: [facility] [facility] Insurance: [facility] A/B, MMO Prescription Benefit: [employer] Living Will/HPOA: Pt states has LW/HPOA and is aware that they are not on file at [facility] at this time. Pt states that his , Елена Geiger, is HPOA. LNOK: Елена Geiger, ; Lilian Camilo, daughter Living Arrangements: Pt states lives with in 1 story home with basement but does not need to use basement stairs. Pt states no concerns at home at this time. Pt states is independent with ADL's. Transportation: Pt states drives self or drives and states no transportation concerns at this time. DME/HHC: Pt states has the following DME: Cane, walker, grab bars, and shower chair. Pt states no need for any further DME at this time. Pt states no hx of HHC or SNF in the past. Pt states no concerns with going home at time of discharge. Pt states is retired. Pt states does not smoke cigarettes or drink ETOH. Pt states no further concerns/needs at this time. CM to follow for any further discharge planning/needs. Advised pt to ask for CM if any further questions/concerns/needs arise, voices understanding. Pt Goal: Home Plan: [place] YOSEPH ALVA
[2019-08-19 14:20] LABS: Bedside Glucose 148 mg/dL (70-110)
[2019-08-19 14:23] LABS: Anion Gap 7 (5-15); BUN 35 mg/dL (7-18); Chloride 115 mmol/L (98-107); Creatinine, Serum 1.46 mg/dL (0.70-1.30); EST Glomerular Filtration Rate 50 mL/min (>60); Est Glom Filt Rate - Afr Amer 61 mL/min (>60); Estimated Creatinine Clearance 48.27 ml/min; Glucose 149 mg/dL (74-106); Potassium 5.8 mmol/L (3.5-5.1); Sodium Level 140 mmol/L (136-145)
[2019-08-19 17:15] LABS: Bedside Glucose 155 mg/dL (70-110)
[2019-08-19] MEDS: Atorvastatin Calcium 80 MG Tablet PO (20:35)
[2019-08-19] MEDS: traZODone 100 MG Tablet 300 MG PO (20:35)
--- NOTE | 2019-08-19 20:49 | NURSING ---
All HS medications given early per patient request
[2019-08-19 22:10] LABS: Bedside Glucose 199 mg/dL (70-110)
[2019-08-19 23:41] LABS: Bedside Glucose 153 mg/dL (70-110)
[2019-08-20 03:00] VITALS: PULSE 66
[2019-08-20 05:10] VITALS: BP 125/71; PULSE 75; RESP 16; TEMP 36.5; O2SAT 96
[2019-08-20] MEDS: Heparin Injection (Vial) 5,000 UNIT/ML VIAL 5000 UNIT SC (05:13)
[2019-08-20 05:21] LABS: Bedside Glucose 115 mg/dL (70-110)
[2019-08-20 06:27] LABS: Anion Gap 7 (5-15); BUN 30 mg/dL (7-18); BUN/Creat Ratio 26.3 RATIO (10-20); Chloride 108 mmol/L (98-107); Creatinine, Serum 1.14 mg/dL (0.70-1.30); EST Glomerular Filtration Rate 67 mL/min (>60); Est Glom Filt Rate - Afr Amer 81 mL/min (>60); Estimated Creatinine Clearance 61.82 ml/min; Glucose 117 mg/dL (74-106); Potassium 4.3 mmol/L (3.5-5.1); Sodium Level 139 mmol/L (136-145)
[2019-08-20 07:15] VITALS: PULSE 76
[2019-08-20 07:30] VITALS: O2SAT 92
--- NOTE | 2019-08-20 09:11 | DCINST_ITS ---
- Discharge Diagnoses Current Active Problems: Current Active and Chronic Problems (Last Reviewed 08/19/19 @ 05:[address] Jayce Barclay MD) Hyperkalemia (Acute) Renal failure (Acute) Dehydration (Acute) Hypothyroidism (Acute) Hypoglycemia (Acute) You will use the following diet at home:: Calorie/Carbohydrate Controlled (specify 1200, 1400, etc) - 1800, Renal (restricted protein/sodium) Your food should be the consistency of: Regular Discharge Activity: Return to Normal Activity Allergies/Adverse Reactions: Allergies iodine Allergy (Unknown, Verified 08/19/19 02:16) convulsions codeine Allergy (Verified 08/19/19 02:16) Itching Medications to take at Discharge Aspirin [Aspirin, Baby] 81 mg PO DAILY@0800 09/30/16 omeprazole 20 mg capsule,delayed release 20 mg PO DAILY 05/15/18 atorvastatin 80 mg tablet 80 mg PO QHS #90 tab 11/10/18 glimepiride 4 mg tablet 8 mg PO DAILY tab 05/11/19 metformin 500 mg tablet 1,000 mg PO DAILY tab 05/11/19 trazodone 300 mg tablet 300 mg PO DAILY tab 05/11/19 Sodium Bicarbonate 650 mg PO TID #90 tab 08/20/19 The following prescriptions were given: Sodium Bicarbonate 650 mg PO TID #90 tab Transmission Status: Pending to [id number] Primary Care Physician: Brent Rahman III, MD [Primary Care Provider] - Please follow up with your Primary Care Physician in: call for appointment Test Results: Test results from this visit will be discussed in further detail at your follow- up appointment, if applicable. Please Follow Up With: Nina Marrero MD When: call for appointment Proposed Discharge Date: 08/20/19
--- NOTE | 2019-08-20 09:12 | DS.PCM_ITS ---
Discharge Date and Diagnosis - Problem List Patient Problems: Active and Suspected Problems (Last Reviewed 08/19/19 @ 05:[address] Jayce Barclay MD) Hyperkalemia (Acute) Renal failure (Acute) Dehydration (Acute) Hypothyroidism (Acute) Hypoglycemia (Acute) Date of Admission: 08/19/19 Date of Discharge: 08/20/19 - Primary Discharge Diagnosis Active and Suspected Problems (Last Reviewed 08/19/19 @ 05:[address] Jayce Barclay MD) Hyperkalemia (Acute) Renal failure (Acute) Dehydration (Acute) Hypothyroidism (Acute) Hypoglycemia (Acute) - Secondary Discharge Diagnosis Chronic Problems (Last Reviewed 08/19/19 @ 05:[address] Jayce Barclay MD) Mixed hyperlipidemia (Chronic) Long-term use of high-risk medication (Chronic) Presence of stent in coronary artery (Chronic ~12/07/15) cardiac cath (left) March 1996, w/ PCI-Stent Mid LAD 1995, [facility] w/ [id number] LAD 05/19/10; [facility] w/PCI and [place] to proximal and distal LAD 12/07/15 Atherosclerotic heart disease of [place] coronary artery without angina pectoris (Chronic) Status post placement of implantable loop recorder (Chronic) Type II diabetes mellitus (Chronic) Hospital Course and Treatment Operations: None Summary of Care Provided: Patient is a 73-year-old with multiple comorbidities admitted with abnormal labs. Patient was found to have elevated potassium level admitted to a monitored bed for further management 1. Hyperkalemia ?patient was treated with Kayexalate discharged home on sodium bicarbonate. Patient was also seen in consultation by nephrology patient will follow-up 2. Diabetes mellitus type 2 with complications including diabetic nephropathy 3. Dyslipidemia 4. CAD with previous stent placement Patient Problems: Active and Suspected Problems (Last Reviewed 08/19/19 @ 05:[address] Jayce Barclay MD) Hyperkalemia (Acute) Renal failure (Acute) Dehydration (Acute) Hypothyroidism (Acute) Hypoglycemia (Acute) - Physical Exam Vitals/I&O's: Vital Signs Temp Pulse Resp BP Pulse Ox 97.7 F L 76 16 125/71 H 92 08/20/19 05:10 08/20/19 07:15 08/20/19 05:10 08/20/19 05:10 08/20/19 07:30 Oxygen Delivery Method Room Air Weight: 74.616 kg Body Mass Index (BMI) 22.9 Finger Stick Blood Glucose 204 Intake and Output for Last 24 Hours 08/18/19 08/19/19 08/20/19 23:59 23:59 23:59 Intake Total 3418.33 / 3418.33 220 / 220 Output Total 850 / 850 1700 / 1700 Balance 2568.33 / 2568.33 -1480 / -1480 General: Alert HEENT: Atraumatic Oral: Moist Mucosa Lungs: Clear to auscultation Neurological: Neuro grossly intact Psych/Mental Status: Normal Affect Laboratory Results 08/19/19 04:14: POC Glucose 31 L* 08/19/19 04:16: POC Glucose 40 L* 08/19/19 09:18: POC Glucose 120 H 08/19/19 13:53: Sodium 140, Potassium 5.8 H, Chloride 115 H, Carbon Dioxide 18.0 L, Anion Gap 7, BUN 35 H, Creatinine 1.46 H, Estim Creat Clear Calc 48.27, Est GFR (MDRD) Af Amer 61, Est GFR (MDRD) Non-Af 50 L, BUN/Creatinine Ratio 24.0 H, Glucose 149 H, Calcium 8.0 L 08/19/19 13:57: POC Glucose 148 H 08/19/19 17:12: POC Glucose 155 H 08/19/19 20:43: POC Glucose 199 H 08/19/19 23:34: POC Glucose 153 H 08/20/19 05:11: POC Glucose 115 H 08/20/19 05:38: Sodium 139, Potassium 4.3, Chloride 108 H, Carbon Dioxide 24.0, Anion Gap 7, BUN 30 H, Creatinine 1.14, Estim Creat Clear Calc 61.82, Est GFR (MDRD) Af Amer 81, Est GFR (MDRD) Non-Af 67, BUN/Creatinine Ratio 26.3 H, Glucose 117 H, Calcium 8.0 L Current Medications Acetaminophen (Tylenol) 650 mg PO Q6H PRN PRN PRN Reason: Pain Score 1-10/Temp > 100.7 F Aspirin (Aspirin, Baby) 81 mg PO DAILY@0800 [facility] Last Admin: 08/19/19 08:30 Dose: 81 mg Documented by: Atorvastatin Calcium (Lipitor) 80 mg PO QHS [facility] Last Admin: 08/19/19 20:35 Dose: 80 mg Documented by: Dextrose (D50w Syringe) 0 gm IV X1 PRN; Protocol PRN Reason: Hypoglycemia Glucagon () 1 mg IM .X1 PRN PRN Reason: Hypoglycemia Heparin Sodium (Porcine) (Heparin Na) 5,000 unit SC Q8 [facility] Last Admin: 08/20/19 05:13 Dose: 5,000 unit Documented by: Sodium Chloride () 250 mls @ 15 mls/hr IV .[id number] PRN PRN Reason: Saline Flush Sodium Chloride () 250 mls @ 15 mls/hr IV .[id number] PRN PRN Reason: Additional IVPB Infusion Sodium Bicarbonate 150 meq/ (Dextrose) 1,150 mls @ 100 mls/hr IV .[id number] [facility] Last Admin: 08/19/19 23:32 Dose: 100 mls/hr Documented by: Ondansetron HCl (Zofran) 4 mg IV Q8H PRN PRN PRN Reason: NAUSEA/VOMITING Pantoprazole Sodium (Protonix) 20 mg PO DAILY [facility] Last Admin: 08/19/19 08:30 Dose: 20 mg Documented by: Sodium Chloride () 10 - 40 ml IV UD PRN PRN Reason: SALINE FLUSH Trazodone HCl (Desyrel) 300 mg PO DAILY@2200 [facility] Last Admin: 08/19/19 20:35 Dose: 300 mg Documented by: Discharge Diet: 1800 Calorie Control Diet, Renal Diet Discharge Activity: Return to Normal Activity Home Medications: Medications to take at Discharge Aspirin [Aspirin, Baby] 81 mg PO DAILY@0800 09/30/16 omeprazole 20 mg capsule,delayed release 20 mg PO DAILY 05/15/18 atorvastatin 80 mg tablet 80 mg PO QHS #90 tab 11/10/18 glimepiride 4 mg tablet 8 mg PO DAILY tab 05/11/19 metformin 500 mg tablet 1,000 mg PO DAILY tab 05/11/19 trazodone 300 mg tablet 300 mg PO DAILY tab 05/11/19 Sodium Bicarbonate 650 mg PO TID #90 tab 08/20/19 Following Prescrptions Were Given to Patient: Sodium Bicarbonate 650 mg PO TID #90 tab Transmission Status: Pending to [id number] Primary Care Physician: Brent Rahman III, MD [Primary Care Provider] - Please follow up with your Primary Care Physician in: call for appointment Please Follow Up With: Nina Marrero MD When: call for appointment Disposition: Home Minutes spent on discharge:: 35 Medical Necessity - Tobacco Use Smoking Status: Former smoker Tobacco Use: Non-smoker Meaningful Use Info Meaningful Use Diagnoses (Choose all that apply): None applicable Inpatient E&M: 35922 [facility]
[2019-08-20] MEDS: Aspirin 81 MG TAB.CHEW PO (09:42)
[2019-08-20] MEDS: Pantoprazole Sodium 20 MG Tablet PO (09:42)
[2019-08-20 09:43] VITALS: BP 134/81; PULSE 75; RESP 16; TEMP 36.2; O2SAT 100
--- NOTE | 2019-08-20 12:09 | PCM.PN.REN ---
Subjective: no new complaints - Physical Exam Vitals/I&O's: Vital Signs Temp Pulse Resp BP Pulse Ox 97.2 F L 75 16 134/81 H 100 08/20/19 09:43 08/20/19 09:43 08/20/19 09:43 08/20/19 09:43 08/20/19 09:43 Oxygen Delivery Method Room Air Weight: 74.616 kg Body Mass Index (BMI) 22.9 Finger Stick Blood Glucose 204 Intake and Output for Last 24 Hours 08/18/19 08/19/19 08/20/19 23:59 23:59 23:59 Intake Total 3418.33 / 3418.33 1370 / 1370 Output Total 850 / 850 1700 / 1700 Balance 2568.33 / 2568.33 -330 / -330 General: Alert, Oriented x3, Cooperative HEENT: Atraumatic, PERRLA, EOMI, Normocephalic Neck: Supple, No JVD, Negative Carotid Bruits Lungs: Clear to auscultation, Normal air movement Cardiovascular: Regular rate, No murmurs Abdomen: Bowel Sounds Present, Soft, Non Tender Extremities: No edema, Capillary Refill Less than 3 Seconds Skin: No rashes, No breakdown Musculoskeletal: No Tenderness to Palpation of Joints or Extremities Neurological: Cranial nerves II-XII grossly intact Psych/Mental Status: Normal Affect, Appropriate Laboratory Results 08/19/19 13:53: Sodium 140, Potassium 5.8 H, Chloride 115 H, Carbon Dioxide 18.0 L, Anion Gap 7, BUN 35 H, Creatinine 1.46 H, Estim Creat Clear Calc 48.27, Est GFR (MDRD) Af Amer 61, Est GFR (MDRD) Non-Af 50 L, BUN/Creatinine Ratio 24.0 H, Glucose 149 H, Calcium 8.0 L 08/19/19 13:57: POC Glucose 148 H 08/19/19 17:12: POC Glucose 155 H 08/19/19 20:43: POC Glucose 199 H 08/19/19 23:34: POC Glucose 153 H 08/20/19 05:11: POC Glucose 115 H 08/20/19 05:38: Sodium 139, Potassium 4.3, Chloride 108 H, Carbon Dioxide 24.0, Anion Gap 7, BUN 30 H, Creatinine 1.14, Estim Creat Clear Calc 61.82, Est GFR (MDRD) Af Amer 81, Est GFR (MDRD) Non-Af 67, BUN/Creatinine Ratio 26.3 H, Glucose 117 H, Calcium 8.0 L Medical Necessity - Tobacco Use Smoking Status: Former smoker Tobacco Use: Non-smoker Assessment/Plan All Active Problems (Last Reviewed 08/19/19 @ 05:[address] Jayce Barclay MD) Hyperkalemia (Acute) Renal failure (Acute) Dehydration (Acute) Hypothyroidism (Acute) Hypoglycemia (Acute) Generalized weakness (Acute) BREE (acute kidney injury) (Acute) Syncope and collapse (Resolved) Acute renal failure. It seems she has early CKD stage III with baseline creatinine between 1.0-1.5. Over the last 2 to 3 months, creatinine has slowly increased.? Hemodynamic. Denies any obstructive symptoms. Renal US is ok. Cr is down to 1.1 today. DC fluids. Hyperkalemia. This is somewhat unexplained. He does have consistent non-gap acidosis. Denies any diarrhea. He was on lisinopril, Bactrim, and states but these were all discontinued within the last 1 to 2 months. Denies eating large amounts of potassium containing foods. better with bicarbonate repletion. since he had non gap acidosis even at home, send home on oral bicarbonate. ok to dc today add sodium bicarbonate to med list dw Dr Friedman
--- NOTE | 2019-08-21 17:06 | CASEMGMT ---
YOSEPH ALVA Discharge Follow-up Phone Call: SHARON: [place] Str[place]: 3 Call Date: 08/21/19 Discharge Date: 08/20/19 Time of Call: 1705 Duration: 3 min Admitting Diagnosis: Hyperkalemia YOSEPH ALVA completed follow-up phone call after recent hospitalization. Patient states he is doing ok but having some pain which is normal. Patient had no questions regarding discharge instructions. Patient was able to fill prescriptions without any issues. Patient states he has his follow-up appts scheduled. No further questions or concerns at this time.
== END 2019-08-20 10:25 | disposition home or self-care (01) | DRG 641 ==
LOC: ED 04:03 → PCU 04:47
PROVIDERS: Admitting Provider Hospitalist; Emergency Provider Emergency Medicine; PCP Family Medicine; Visit Provider Internal Medicine
DX: E87.5 Hyperkalemia (principal); N17.9 Acute kidney failure, unspecified; N18.3 Chronic kidney disease, stage 3 (moderate); E11.22 Type 2 diabetes mellitus with diabetic chronic kidney disease; E11.51 Type 2 diabetes mellitus with diabetic peripheral angiopathy without gangrene; I25.10 Atherosclerotic heart disease of native coronary artery without angina pectoris; E78.2 Mixed hyperlipidemia; E03.9 Hypothyroidism, unspecified; E86.0 Dehydration; E11.649 Type 2 diabetes mellitus with hypoglycemia without coma; F32.9 Major depressive disorder, single episode, unspecified; G89.29 Other chronic pain; E87.2 Acidosis; Z87.891 Personal history of nicotine dependence; Z86.711 Personal history of pulmonary embolism
CPT/HCPCS: 36415; 76770; 80048; 81001; 82533; 82962; 83735; 84436; 84439; 84481; 84484; 85025; 93005; 96360; 97112; 97161; 97162; 97166; 97530; 97535; 99285; J7030; A4216

== ENCOUNTER 2019-09-28 11:00 | Outpatient (RCR) | payer MEDICARE, OTHER, SELFPAY ==
[2019-08-06 10:54] VITALS: BMI 22.7
--- NOTE | 2019-08-17 10:29 | HP.PTEVAL_ITS ---
Patient's Visit Information SANCHEZ LIM is a 73 year old M referred to Physical Therapy by TIO Sullivan with a diagnosis of S/P L2-3 LUMBAR FUSION 06/29/19 - REMOVAL OF DEPUY EXPEDIUM INSTRUMENTATION. Date of Evaluation: 08/17/19 Physical Therapist: Robina Manjrarez, PT, Cert MDT - Visit Plan Frequency: 2-3x /Week Duration: 2 Months Plan: POSTURE CORRECTION/STRENGTHENING, INSTRUCTION IN APPROPRIATE BODY MECHANICS AND ACTIVITY MODIFICATIONS. DLS STARTING WITH A NEUTRAL SPINE PROGRESSING ROM AFTER 3 WEEKS TOLERATED. JAMIE LE ROM, STRETCHING AND STRENGTHENING. HEP INSTRUCTION. WILL START ON LAND AND PROGRESS TO AQUATIC THERAPY IN 3-4 WKS. PATIENT AGREEABLE. - Subjective Subjective: Work/Leisure: [employer]. Disability: RETIRED DUE TO DISABILITY FOR BACK. Present symptoms: JAMIE LBP LEFT > RIGHT. NO LE PAIN, NUMBNESS OR TINGLING. PATIENT REPORTS HE IS VERY FATIGUED AND WEAK - THIS IS HIS CHEIF COMPLAINT. Present since: CHRONIC. Pain Scale: WORST 7/10, LEAST 4/10. Currently: 4/10. 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 Worse: JUST UP WALKING AROUND. Better: SITTING DOWN AND LYING DOWN. ABLE TO COMPLETELY RELAX LYING DOWN. Disturbed sleep: NO. Previous history/Previous treatment: PATIENT REPORTS THIS IS HIS FOURTH BACK SURGERY. PHYSICAL THERAPY SEVERAL TIMES IN THE PAST FOR HIS BACK INCLUDING AQUATIC THERAPY. Coughing/sneezing/straining: NEGATIVE. Gait: PATIENT REPORTS HE IS ONLY ABLE TO WALK ABOUT 1/8 OF A MILE - BEING LIMITED MAINLY BY WEAKNESS AND FATIGUE NOT SO MUCH PAIN. NOT USING ANY ASSISTIVE DEVICES. Difficulty initiating urinatin: NO. Unexplained weight loss: NO. Imaging: LUMBAR MRI PRIOR TO SURGERY APPROX APR 2019. PMH: HEART DZ, 4 HEART STENTS ABOUT 5-6 YRS AGO, NIDDM, NO CANCER, NO STROKE, LEFT ROTATOR CUFF REPAIR ABOUT 1 YR AGO - RESIDUAL DEFICIT. OTHER: WEARING BACK BRACE MAINLY JUST WHEN HE GOES OUTSIDE OF HIS HOME NOW. STATES HE DOESN'T WEAR IT IN THE HOUSE AND HIS UNDERSTANDING IS THAT HE CAN WEAN OUT OF THE BRACE TOLERATED NOW. PATIENT LIVES WITH HIS AND DROVE HIMSELF HERE TO PT TODAY. - Objective Sitting/Standing Posture: POOR. Lordosis: REDUCED. Active Correction of posture: Other Observations: THIS PATIENT AMBULATES INDEP'LY INTO PT WITHOUT ANY ASSISTIVE DEVICES AND WEARING HIS BACK BRACE. NO LOB. DIFFICULT FOR HIM TO MAKE IT ABOUT 300 FEET BACK TO TREATMENT ROOM. SOB. PATIENT WALKS WITH IINCREASED TRUNK FLEXION AND QUICK SHORT STEPS. PATIENT IS ONLY ABLE TO STAND STILL FOR ABOUT 1-2 MINUTES. HE ACTUALLY DOES A LITTLE BETTER WALKING THAN STANDING STILL. Motor deficit: JAMIE LE'S 5/5 WITH MMT'ING EXCEPT HIPS GRADED 4- /5. Sensory deficit: JAMIE LE LIGHT TOUCH SENSATION INTACT AND SYMMETRICAL. ROM deficit: TIGHT JAMIE GASTROC SOLEUS AND HIP FLEXORS. Reflexes: NT. Dural Signs: NEGATIVE JAMIE LE'S. Lumbar mvmt loss: NT. Core strength: POOR. Palpation: INCISION LOOKS GOOD WITHOUT ANY SIGNS OF INFECTION. TREATMENT: NEUROMUSCULAR REEDUCATION - RETRAINING OF MVMT AND POSTURE FOR SITTING, LYING AND STANDING ACTIVITIES. - Goals Goal 1:: DECREASE C/O LBP Goal Time Frame: 4-6 Weeks Goal 2:: IMPROVE LIFTING, WALKING, SITTING, *STANDING*, SOCIAL LIFE, TRAVEL AND WORK/HOME/YARDWORK FUNCTION. Goal Time Frame: 4-6 Weeks Goal 3:: INSTRUCT IN PROPHYLAXIS Goal Time Frame: 4-6 Weeks - Rehabilitation Potential Rehabilitation Potential: Good - Anticipated Interventions Patient/Client Instruction: Educate patient on: Condition, Plan of Care, Risk Factors, Benefits of Fitness Program For the Purpose of:: To improve self management Therapeutic Exercise to Include: Strength training, Body mechanics, Postural training, Flexibilty training, Neuromotor development, In an aquatic setting, Dynamic Lumbar Stabilization For the Purpose of:: To increase ROM, To improve muscle performance and motor function, To increase tolerance to activity/condition/position, To improve ability of physical actions for home/community/work/leisure Thank you for the opportunity to evaluate your patient. For Medicare and Medicare HMO plans, please review the plan of care and approve it. It will need to be FAXED BACK to us at [phone] for Medicare purposes. For Medicare only, by signing this I certify the plan of care. Please let me know if there are questions or concerns regarding this plan of care. Physician Signature: Date:
--- NOTE | 2019-09-28 11:30 | HP.PTDCSUM ---
It has been my pleasure to treat SANCHEZ LIM referred by Cassy Becerra, DIEGO-C, with the diagnosis of S/P L2-3 LUMBAR FUSION 06/29/19 - REMOVAL OF DEPUY EXPEDIUM INSTRUMENTATION for a total of 8 visit(s). Discharge Date: 09/28/19 Please see the following information for a summary of their discharge status. Subjective: I'M FEELING REALLY GOOD. PATIENT REPORTS HIS BACK DOESN'T HURT BUT HE DOES STILL HAVE WEAKNESS IN HIS BACK AND LEGS BUT MUCH IMPROVED COMPARED TO WHEN HE STARTED THERAPY. I STILL GET FATIGUED PRETYY EASILY'. PATIENT REPORTS HE REALLY FEELS HE CAN CONTINUE TO IMPROVE ON HIS OWN AT THIS POINT. HE STATES HE CAN DO HIS HEP AND GET OUT TO BE MORE ACTIVE WITH THE NICE WEATHER. PATIENT ALSO HAS HIS OWN POOL. PATIENT REPORTS DR. CARDENAS RELEASED HIM TO [facility] AND DO ACTIVITIES TOLERATED AT THIS POINT. PATIENT REPORTS HE WAS CARRYING A 40 LB BAG YESTERDAY AND NO PAIN. NO BACK OR LEG PAIN. (CHRONIC LEFT 2ND TOE PAIN ONLY). LOW BACK Pain Intensity (Out of 10): 0 LEFT GREAT TOE Pain Intensity (Out of 10): 0 % Improvement: 90 Objective/Function: PATIENT WAS SEEN TODAY FOR RE-ASSESSMENT OF PROGRESS TOWARD THE SET PT GOALS AND THE NEED FOR FURTHER PHYSICAL THERAPY VS READINESS FOR DISCHARGE. ALL GOALS HAVE BEEN MET. UPON EXAM TODAY: LUMBAR MVMT LOSS: FLEX - MIN TO MOD. EXT - MIGUEL. RSG - MIGUEL. LEFT SG - MIGUEL. PATIENT DENIES PAIN WITH LUMBAR ROM TESTING ALL PLANES. JAMIE LE STRENGTH IS 5/5 WITH MMT'ING AND NO PAIN WITH TESTING. CORE STRENGTH - FAIR TO POOR. Goal 1:: DECREASE C/O LBP Goal 2:: IMPROVE LIFTING, WALKING, SITTING, *STANDING*, SOCIAL LIFE, TRAVEL AND WORK/HOME/YARDWORK FUNCTION. Goal 3:: INSTRUCT IN PROPHYLAXIS Plan: D/C If there are questions or concerns regarding this patient's physical therapy, please feel free to call me at [phone]. Thank you for the referral of this patient. Sincerely, Robina Manjarrez, PT, Cert MDT
== END 2019-09-28 19:00 | disposition home or self-care (01) ==
LOC: PT 11:00
PROVIDERS: PCP Family Medicine; Referring Provider Nurse Practitioner Acute Care; Visit Provider Nurse Practitioner Acute Care
DX: Z98.1 Arthrodesis status (principal)
CPT/HCPCS: 97110; 97112; 97113; 97162; 97164

== ENCOUNTER → 2019-11-26 10:04 | Outpatient (CLI) | payer MEDICARE, OTHER, SELFPAY ==
[2019-11-25 09:59] VITALS: BMI 21.2
[2019-11-26 12:59] LABS: AST(SGOT) 30 U/L (15-37); Alanine Aminotransfer ALT/SGPT 35 U/L (16-61); Alkaline Phosphatase 104 U/L (45-117); Bilirubin, Direct 0.15 mg/dL (0.00-0.30); Cholesterol 121 mg/dL (200); Globulin 3.2 g/dL (2.2-4.2); High Density Lipoprotein 51 mg/dL; Protein, Total 7.2 g/dL (6.4-8.2); Triglycerides 99 mg/dL; Very Low Density Lipoprotein 20 mg/dL (5-40)
== END ==
PROVIDERS: PCP Internal Medicine; Referring Provider Physician Assistant Medical; Visit Provider Physician Assistant Medical
DX: I25.10 Atherosclerotic heart disease of native coronary artery without angina pectoris (principal); E78.2 Mixed hyperlipidemia
CPT/HCPCS: 36415; 80061; 80076

== ENCOUNTER → 2019-12-30 11:10 | Outpatient (CLI) | payer MEDICARE, OTHER, SELFPAY ==
[2019-12-30 10:41] VITALS: BMI 21.9
[2019-12-30 12:35] LABS: ALB/GLOB Ratio 1.1 RATIO (0.9-2.4); AST(SGOT) 34 U/L (15-37); Alanine Aminotransfer ALT/SGPT 33 U/L (16-61); Albumin, Serum 3.9 g/dL (3.2-5.0); Alkaline Phosphatase 94 U/L (45-117); Anion Gap 5 (5-15); BUN 20 mg/dL (7-18); BUN/Creat Ratio 14.3 RATIO (10-20); Calcium,Total 8.9 mg/dL (8.5-10.1); Chloride 108 mmol/L (98-107); EST Glomerular Filtration Rate 53 mL/min (>60); Est Glom Filt Rate - Afr Amer 64 mL/min (>60); Globulin 3.4 g/dL (2.2-4.2); Glucose 172 mg/dL (74-106); Potassium 5.2 mmol/L (3.5-5.1); Protein, Total 7.3 g/dL (6.4-8.2); Sodium Level 139 mmol/L (136-145); Thyroid Stim Hormone (TSH) 3.11 uIU/mL (0.358-3.74)
[2019-12-30 14:12] LABS: Hemoglobin A1c 6.7 % (3.8-5.6)
== END ==
PROVIDERS: PCP Internal Medicine; Referring Provider Internal Medicine; Visit Provider Internal Medicine
DX: I10 Essential (primary) hypertension (principal); E03.9 Hypothyroidism, unspecified; E11.8 Type 2 diabetes mellitus with unspecified complications
CPT/HCPCS: 36415; 80053; 83036; 84443

== ENCOUNTER 2020-01-19 16:54 | Emergency (ER) | payer MEDICARE, OTHER, SELFPAY ==
[2019-12-30 12:56] VITALS: BMI 22.9
[2020-01-19 16:55] VITALS: BP 134/84; PULSE 81; RESP 15; TEMP 36.1; O2SAT 100; BMI 21.3
--- NOTE | 2020-01-19 17:14 | RAD_ITS ---
STUDY: X-RAY - RIGHT ELBOW REASON FOR EXAM: Male, 74 years old. FELL OFF SHOULDER, RIGHT ELBOW PAIN TECHNIQUE: 3 view(s) of the elbow. COMPARISON: None. FINDINGS: Normal visualized humerus, radius and ulna. Normal radiocapitellar and ulnotrochlear articulations. The soft tissue structures are unremarkable. RAD/Elbow min 3 Views IMPRESSION: Normal x-ray examination of the elbow. Electronically Signed: Toya Marti MD at 19:26 EDT Tel , Service support ,
--- NOTE | 2020-01-19 17:14 | ED.VISSUMM ---
- ER Visit Summary Date of Service: 01/19/20 Chief Complaint: [Fall] History of Present Illness: The patient is a 74 M [presents the emergency department after sustaining a fall this afternoon. Patient states that he was working on some ceiling tiles and was standing on a ladder when he fell about 7 feet. Patient states that he fell against the wall initially and scraped up his left elbow and then fell onto the ground onto his right shoulder and elbow. Patient is certain he did not hit his head. He denies headache or loss of consciousness. He denies neck pain. Patient has been ambulatory. Patient is right-hand dominant. Patient states his grandson drove him in. Patient denies any chest or abdomen pain. He denies any back pain.] Physical Examination: [HEENT-PERRLA, EOMI. Cranial nerves II through XII grossly intact. TMs clear. Mucous membranes moist. No adenopathy. No external evidence of trauma to his head. No C-spine tenderness on palpation. Patient has normal active range of motion is painless. Cardiovascular-regular rate and rhythm without murmur or ectopy Lungs-clear to auscultation, chest wall stable without crepitus or subcu emphysema Abdomen-normoactive bowel sounds, soft, nontender, no rebound or rigidity, no peritoneal signs. Extremities-intact ?4, normal range of motion, normal pulses. Left elbow-patient has superficial skin abrasions but no bony tenderness on exam. Patient has normal range of motion at the elbow. Right arm-patient has diffuse tenderness over the right shoulder/glenohumeral joint with limited range of motion secondary to pain. No obvious deformity noted. He is neurovascular intact distally. Patient has some diffuse tenderness about the left elbow and pain with range of motion. No obvious deformity.] Test Results: [X-rays of the right shoulder and right elbow obtained were negative for fracture.] Emergency Department Course and Treatment: [He was medicated with 4 mg of morphine and 4 mg of Zofran IM. Patient was given a sling for his right arm. Patient was given a tetanus booster.] Treatment Plan: [Patient will be given a prescription for [place] for pain. Patient advised to follow-up with primary care physician in 5 to 7 days.] Disposition: [Discharged home in stable condition] Impression: [Fall Right shoulder contusion/sprain-possible internal derangement Contusion right elbow Skin abrasions] This note was generated with [employer] dictation software. It may contain incorrect words, spelling, and punctuation that were not noted in review of the chart prior to signing ED Disposition - Plan for ED Patient: Referrals: Svetlana Casas MD [Primary Care Provider] -
[2020-01-19] MEDS: Diphth,Pertuss(Acell),Tet Vac 0.5 ML Vial IM (17:38)
[2020-01-19] MEDS: Morphine 4 MG/ML Syringe IM (17:41)
[2020-01-19] MEDS: Ondansetron 4 MG/2 ML Vial IM (17:41)
--- NOTE | 2020-01-19 17:50 | RAD_ITS ---
STUDY: X-RAY - RIGHT SHOULDER REASON FOR EXAM: Male, 74 years old. FELL OFF LADDER, RIGHT SHOULDER PAIN TECHNIQUE: 4 view(s) of the shoulder. COMPARISON: None. FINDINGS: Normal glenohumeral articulation. Moderate acromioclavicular osteoarthrosis. Normal acromion. Normal humeral head and visualized proximal humerus. The soft tissue structures are unremarkable. Normal visualized pulmonary apex. RAD/Shoulder min 2 Views IMPRESSION: 1. No acute findings. 2. Acromioclavicular osteoarthrosis. Electronically Signed: Toya Marti MD at 19:38 EDT Tel , Service support ,
--- NOTE | 2020-01-19 19:41 | DCINST.ED_ITS ---
ED Disposition - Plan for ED Patient: Instructions: ED Mechanical Fall, ED Contusion Shoulder, ED Shoulder Sprain Prescriptions: Hydrocodone Bitart/Apap 5-325 [[place] 5MG-325MG] 1 tab PO Q4H PRN PRN 2 Days #10 tab PRN Reason: Pain Prescription Printed Referrals: Svetlana Casas MD [Primary Care Provider] - 5-7 Days
[2020-01-19 19:52] VITALS: RESP 16
== END 2020-01-19 19:52 | disposition home or self-care (01) ==
LOC: ED 17:32
PROVIDERS: Emergency Provider Emergency Medicine; PCP Internal Medicine
DX: S40.011A Contusion of right shoulder, initial encounter (principal); S43.401A Unspecified sprain of right shoulder joint, initial encounter; S50.01XA Contusion of right elbow, initial encounter; T14.8XXA Other injury of unspecified body region, initial encounter; K21.9 Gastro-esophageal reflux disease without esophagitis; E78.00 Pure hypercholesterolemia, unspecified; E11.9 Type 2 diabetes mellitus without complications; W11.XXXA Fall on and from ladder, initial encounter; Z79.84 Long term (current) use of oral hypoglycemic drugs
CPT/HCPCS: 73030; 73080; 90715; 96372; 99283; J2405

== ENCOUNTER → 2020-01-20 11:21 | Outpatient (CLI) | payer MEDICARE, OTHER, SELFPAY ==
[2020-01-19 16:55] VITALS: BMI 21.3
--- NOTE | 2020-01-20 11:26 | RAD_ITS ---
STUDY: X-RAY - RIGHT SHOULDER REASON FOR EXAM: Male, 74 years old. fell off ladder yesterday, most pain in right shoulder, pt states unable to raise arm TECHNIQUE: 4 view(s) of the shoulder. COMPARISON: None. FINDINGS: There is mild degenerative arthrosis of the glenohumeral articulation. There is degenerative arthrosis of the acromioclavicular joint without inferior osseous spur formation. Normal acromion. Normal humeral head and visualized proximal humerus. The soft tissue structures are unremarkable. Normal visualized pulmonary apex. RAD/Shoulder min 2 Views IMPRESSION: Degenerative arthrosis of the shoulder. Electronically Signed: Aspen Reyes, at 5:41 EDT Tel , Service support ,
== END ==
PROVIDERS: PCP Internal Medicine; Referring Provider Anesthesiology Pain Medicine; Visit Provider Anesthesiology Pain Medicine
DX: M25.511 Pain in right shoulder (principal)
CPT/HCPCS: 73030

== ENCOUNTER → 2020-02-18 12:09 | Outpatient (CLI) | payer MEDICARE, OTHER, SELFPAY ==
[2020-01-19 16:55] VITALS: BMI 21.3
--- NOTE | 2020-02-18 12:15 | RAD_ITS ---
STUDY: X-RAY - CERVICAL SPINE REASON FOR EXAM: Male, 74 years old. PAIN TECHNIQUE: 3 view(s) of the cervical spine were obtained. COMPARISON: None FINDINGS: Normal anterior atlantoaxial articulation. Normal odontoid process. Normal cervical lordosis. Normal vertebral bodies and endplates. Normal disc space heights. Normal visualized intervertebral neuroforamina. The soft tissue structures are unremarkable. RAD/Cerv Spine 2 or 3 Views IMPRESSION: Normal x-ray examination of the visualized cervical spine. Electronically Signed: Anthony Domínguez MD at 23:08 EDT , Service support ,
== END ==
PROVIDERS: PCP Internal Medicine; Visit Provider Anesthesiology Pain Medicine
DX: M54.2 Cervicalgia (principal)
CPT/HCPCS: 72040

== ENCOUNTER → 2020-03-22 13:11 | Outpatient (CLI) | payer MEDICARE, OTHER, SELFPAY ==
[2020-03-16 08:58] VITALS: BMI 21.0
--- NOTE | 2020-03-22 13:13 | MRI_ITS ---
STUDY: MRI RIGHT SHOULDER REASON FOR EXAM: Right shoulder pain after a fall 8 weeks ago. TECHNIQUE: Standardized fat and water weighted pulse sequences were obtained in all 3 orthogonal planes. COMPARISON: Radiographs 01/20/2020. FINDINGS: There is a full-thickness tear of the supraspinatus tendon (T2 coronal images 9-14), retracted approximately 2.2 cm. Normal infraspinatus tendon. There is a full-thickness tear of the subscapularis tendon (T2 axial images 11-14). Normal teres minor tendon. There is mild edema in the supraspinatus muscle. Normal infraspinatus muscle. Normal subscapularis muscle. Normal teres minor muscle. There is a glenohumeral joint effusion. Normal humeral head and visualized proximal humerus. There is a tear with nonvisualization of the intracapsular long biceps tendon. Normal labrum. Normal capsulo- ligamentous complex. There is acromioclavicular arthrosis with hypertrophic changes (T2 sagittal image 17). There is a Type II morphology (curved), with a neutral orientation. There is subacromial-subdeltoid bursal fluid. There is thickening of the coracoacromial ligament (T2 sagittal image 13). Normal deltoid muscle. Normal trapezius muscle. MRI/Upper Ext Joint Only(Routine) IMPRESSION: Full-thickness tear of the supraspinatus tendon. Full-thickness tear of the subscapularis tendon. Tear of the long biceps tendon. Acromioclavicular arthrosis. Thickening of the coracoacromial ligament. Glenohumeral joint fluid communicating with the subacromial-subdeltoid bursa. Electronically Signed: Adan Dias MD at 14:40 EST Tel , Service support ,
== END ==
PROVIDERS: PCP Internal Medicine; Referring Provider Orthopaedic Surgery; Visit Provider Orthopaedic Surgery
DX: S46.119A Strain of muscle, fascia and tendon of long head of biceps, unspecified arm, initial encounter (principal); S46.001A Unspecified injury of muscle(s) and tendon(s) of the rotator cuff of right shoulder, initial encounter
CPT/HCPCS: 73221

== ENCOUNTER → 2020-03-30 09:54 | Outpatient (CLI) | payer MEDICARE, OTHER, SELFPAY ==
[2020-03-30 09:36] VITALS: BMI 21.0
[2020-03-30 12:59] LABS: Anion Gap 3 (5-15); BUN 30 mg/dL (7-18); BUN/Creat Ratio 20.4 RATIO (10-20); Calcium,Total 9.8 mg/dL (8.5-10.1); Chloride 104 mmol/L (98-107); Creatinine, Serum 1.47 mg/dL (0.70-1.30); EST Glomerular Filtration Rate 50 mL/min (>60); Est Glom Filt Rate - Afr Amer 60 mL/min (>60); Glucose 162 mg/dL (74-106); Potassium 4.9 mmol/L (3.5-5.1); Sodium Level 140 mmol/L (136-145)
== END ==
PROVIDERS: PCP Internal Medicine; Referring Provider Internal Medicine; Visit Provider Internal Medicine
DX: E11.9 Type 2 diabetes mellitus without complications (principal); I10 Essential (primary) hypertension
CPT/HCPCS: 36415; 80048

== ENCOUNTER 2020-04-19 05:54 | Day surgery (SDC) | payer MEDICARE, OTHER, SELFPAY ==
[2020-03-30 09:36] VITALS: BMI 21.0
[2020-04-19 06:31] LABS: Bedside Glucose 124 mg/dL (70-110)
[2020-04-19 06:46] VITALS: BP 142/69; PULSE 64; RESP 16; TEMP 36.4; O2SAT 99; BMI 21.9
[2020-04-19] MEDS: Lactated Ringers 1,000 ML 100 ML IV (06:55)
--- NOTE | 2020-04-19 07:09 | HP.PCM_ITS ---
History and Physical Date of Admission: 04/19/20 Intake Intake Visit Reasons: bilat shoulders Chief Complaint: FU Chronic Conditions Allergies iodine Allergy (Unknown, Verified 03/30/20 09:33) convulsions codeine Allergy (Verified 03/30/20 09:33) Itching [facility] Medical History Essential hypertension (Chronic) Mixed hyperlipidemia (Chronic) Peripheral arterial occlusive disease (Inactive) Long-term use of high-risk medication (Chronic) Atherosclerotic heart disease of [place] coronary artery without angina pectoris (Chronic) Status post placement of implantable loop recorder (Chronic) Syncope and collapse (Resolved) Type II diabetes mellitus (Chronic) Ankle fracture (Acute) Arthritis (Acute) Depression (Acute) Hearing loss (Acute) Heart disease (Acute) History of pulmonary embolism (Acute) Vision problems (Acute) Chronic back pain (Chronic) Acute renal failure (Inactive) Altered mental status (Inactive) Diverticulitis large intestine (Inactive) Hyperkalemia (Inactive) Orthostatic hypotension (Inactive) Severe sepsis with acute organ dysfunction (Inactive) Surgical History Presence of stent in coronary artery (Chronic ~12/07/15) history of back fusion (Acute) Postsurgical percutaneous transluminal coronary angioplasty (PTCA) status (Chronic) History of appendectomy (Resolved) History of cholecystectomy (Resolved) History of hernia repair (Resolved) History of laminectomy (Resolved) Family History Father FH: congestive heart failure Mother FH: aneurysm Brother CVA (cerebral vascular accident) Brother Cancer Other Arthritis Bowel disease Diabetes High cholesterol History of partial colectomy Myocardial infarction Social History (Updated 04/04/20 @ 12:[address] Jayce Madsen DO) household members: spouse housing: house Smoking Status: Former smoker how long ago did patient quit smokin alcohol intake: never substance use type: does not use diet: diabetic caffeine: Yes Type: coffee what type of physical activity do you participate in: none frequency: daily seatbelt use: always do you feel safe at home: Yes HPI bilat shoulders: Details: Parts of this documentation were recorded by a scribe, this documentation accurately reflects the service provided and the decisions made by me, Dr. Jayce Madsen DO 04/04/20 1119. SANCHEZ LIM is a 74 year old M here today for F/U on right shoulder after having MRI. Continues to have right anterior shoulder pain. Denies numbness, tingling or other associated symptoms. Does not recall having previous surgery of the right shoulder. to recall he had in injury when he fell moving ceiling tiles. He denies any problems with the shoulder prior to this injury except spontaneous biceps rupture years ago. he has pain and limited range of motion and function. ROS Musc Reports joint pain, Reports joint swelling, Denies numbness, Denies tingling Skin/Breast Denies redness, Denies lesions, Denies itching, Denies rash, Denies skin swelling Neuro No numbness, No tingling Ortho Exam General General: Yes no acute distress Neurologic: Yes alert Psychologic: Yes reasonable and appropriate Right Shoulder Skin/Wound: No ecchymosis, No erythema, Yes swelling Testing: Positive TTP Biceps; negative AROM-Forward Elevation 0-180 (20) or belly press normal SHOULDER: anterior vertical scar and posterior lateral oblique scar over the shoulder no erythema /ecchymosis or open lesions. grade 1 joint effusion 20 abduction/foward flexion. ER 45 Supplemental Info 03/22/2020 MRI right shoulder: full thickness rupture an retracton of supraspinatus and subscapularis with biceps tendon tear. AC joint arthrosis Assessment & Plan Problems 1. Traumatic complete tear of right rotator cuff, subsequent encounter S46.011D Plan Personally reviewed patients MRI of the right shoulder. Patient educated that he does have a RTC tear of the subscapularis and supraspinatus tendon that is retracted. Patient educated that part of the RTC may have been an old tear. Treatment options are do nothing or PT or steroid injection or RTC repair. Patient wishes to discuss surgical repair of the right RTC. Reviewed the pre- operative plans with the patient. Risks and benefits of the procedure were fully explained, including but not limited to infection, neurovascular injury, continued pain, arthritis, stiffness, need for further surgery, re-injury, DVT, PE, general risks of anesthesia, and loss of limb or life. The patient understands all the risks and does wish to proceed with written consent. Educated that he will be in a sling for 6 weeks post op but he will come out of this for elbow ROM and pendulum exercises. . he has a hx of STENTs we will request a application consultant clearance for surgery. He will need to stop the aspirin 7 days prior to surgery and will need clearance from his PCP. Follow up post op or sooner if pain, swelling, numbness or associated symptoms, or concerns develop. All questions answered. Patient in agreement of plan. Coding Level of Care Code Off vis,est,level 3 Diagnoses Traumatic complete tear of right rotator cuff, subsequent encounter S46.011D ??Encounter type: subsequent encounter ??Laterality: right ??Rotator cuff tear extent: complete ??Rotator cuff tear trauma status: traumatic I have re-examined the patient. There are no clinical changes since date of exam Procedure Criteria Procedure Type: Elective COVID Risk Discussion: The surgeon/proceduralist and patient have discussed in detail the risk of exposure to and/or potential harm posed by the COVID-19 virus with having a surgery/procedure at this time versus the risk of delaying the surgery/procedure. It is not possible to know either the risk of delaying the surgery or procedure or chance of getting an infection with perfect accuracy, but a joint decision was made between the patient and the surgeon/proceduralist to proceed at this time with the scheduled surgery/procedure as indicated on the consent form.
[2020-04-19 07:27] LABS: Hematocrit 36.5 % (40-54); Hemoglobin 11.2 g/dL (13.0-16.5); Mean Corp Hgb Conc 30.7 g/dL (32-36); Mean Corpuscular Hgb 30.1 pg (27.0-32.0); Mean Corpuscular Volume 98.1 fL (80-94); Mean Platelet Vol. 10.1 fl (6.2-12.0); Platelet Count 184 K/mm3 (150-450); RBC Distribution Width CV 13.9 % (11.6-14.6); RBC Distribution Width SD 49.6 fl (35.1-43.9); Red Blood Count 3.72 M/mm3 (4.6-6.2); White Blood Count 5.8 K/mm3 (4.4-11.0)
[2020-04-19] MEDS: Cefazolin 2 GM in 0.9% Normal Saline 100 ML IV (07:45)
[2020-04-19 07:51] LABS: AST(SGOT) 34 U/L (15-37); Alanine Aminotransfer ALT/SGPT 38 U/L (16-61); Albumin, Serum 3.3 g/dL (3.2-5.0); Alkaline Phosphatase 72 U/L (45-117); Cholesterol 131 mg/dL (200); High Density Lipoprotein 52 mg/dL; Protein, Total 6.3 g/dL (6.4-8.2); Triglycerides 134 mg/dL; Very Low Density Lipoprotein 27 mg/dL (5-40)
[2020-04-19] MEDS: Bupivacaine Mpf 0.5% 30 ML VIAL (07:54)
[2020-04-19] MEDS: Bupiv/Epi 0.5% Mpf 30 ML Vial (07:54)
[2020-04-19] MEDS: Epinephrine (1 mg/ml) 1 MG/ML VIAL (07:54)
[2020-04-19] MEDS: morphine PF (epidural) 5 MG/10 ML Vial (07:54)
--- NOTE | 2020-04-19 09:31 | DCINST_ITS ---
Discharge Diet: No Restrictions Weight Bearing Status: No weight bearing Additional Instructions: Leave the dressing on and intact for 48 hours. . Then may remove and shower with warm water and antibacterial soap. But do not submerge in tub for 3 weeks. Ice shoulder 15 min on and 15 mins off next 72 hrs. May remove sling for elbow range of motion and pendulum exercises only then replace sling. Absolutely no active shoulder motion. Do not lift push pull at all with operative extremity . Encourage finger and wrist range of motion. Doxycycline antibiotic has been shown to aid in rotator cuff healing please take as directed . If any concerns call Dr. Madsen's office. Allergies/Adverse Reactions: Allergies iodine Allergy (Unknown, Verified 04/11/20 08:17) convulsions codeine Allergy (Verified 04/11/20 08:17) Itching Medications to take at Discharge omeprazole 20 mg capsule,delayed release 20 mg PO DAILY 05/15/18 trazodone 300 mg tablet 300 mg PO QHS tab 05/11/19 aspirin 81 mg tablet,delayed release 81 mg PO DAILY 03/16/20 docusate sodium 50 mg capsule 150 mg PO QHS cap 03/16/20 atorvastatin 80 mg tablet 80 mg PO QHS #90 tab 03/30/20 insulin glargine 100 unit/mL (3 mL) subcutaneous pen 15 unit SC QAM #15 ml 03/31/20 insulin syringe-needle U-100 0.3 mL 29 gauge x 1/2 See Rx Instructions .ROUTE .MEDSUPPLY #100 ea 04/07/20 pen needle, diabetic 31 gauge x 3/16 See Rx Instructions .ROUTE .MEDSUPPLY #100 ea 04/07/20 Glimepiride 8 mg PO DAILY 04/11/20 Acetaminophen [Tylenol Extra Strength] 1,000 mg PO Q6H PRN #100 tab 04/19/20 Doxycycline 100 mg PO BID #60 cap 04/19/20 Oxycodone [Oxyir] 5 mg PO Q4H PRN PRN #60 tab 04/19/20 The following prescriptions were given: Doxycycline 100 mg PO BID #60 cap Transmission Status: Sent to [facility] Oxycodone [Oxyir] 5 mg PO Q4H PRN PRN #60 tab PRN Reason: Pain Score 6-10 Transmission Status: Sent to [facility] Acetaminophen [Tylenol Extra Strength] 1,000 mg PO Q6H PRN #100 tab Transmission Status: Sent to [facility] Primary Care Physician: Svetlana Casas MD [Primary Care Provider] - Test Results: Test results from this visit will be discussed in further detail at your follow- up appointment, if applicable. Please Follow Up With: Jayce Madsen DO - 2 weeks
--- NOTE | 2020-04-19 09:33 | OP.PCM_ITS ---
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 Did not complain of any symptoms prior to fall and recent months. He did have MRI evidence of a forementioned gnosis and we discussed repair with risk of tendon quality not allowing for repair. Risks benefits and alternatives of the procedure were reviewed including risk of bleeding infection nerve artery tissue damage need for further surgery continued pain postoperative stiffness and need for postoperative physical therapy and continued pain and retear. Procedure: Patient was met in the preoperative holding area the operative extremity was identified by both the patient and the physician and was marked. Patient was met by anesthesia and brought back to the operating room on a wheeled cart. Patient was transferred to the operating table in the supine position. Anesthesia was started. Patient was then positioned in the beach chair configuration. Bony prominences were well-padded. The patient was prepped and draped in the usual sterile fashion. A timeout was called to ensure the proper patient procedure and extremity were being contemplated. Anatomic landmarks were palpated and marked with a marking pen. A 0.25% Marcaine with epinephrine was injected into the planned portal sites. An 11 blade scalpel was used to make a stab incision in the posterior lateral portal. Arthroscope was inserted into the glenohumeral space with ease. Inflow and outflow tubes were attached and arthroscopic visualization began. An anterior portal was established with an 18-gauge spinal needle. There was noted to be significant cartilage wear grade 3 throughout the humeral head and glenoid with degenerative labral fraying and synovitis this in the the rotator cuff was evaluated and chronic retracted scarred and subscapularis tear with the degree of arthritis and his lack of complaints with recent injury I suspect this was an old tear when he ruptured his biceps decided not to proceed with repair of the subscap. The supraspinatus however did have a more acute appearance there was significant footprint left and shortening of the tendon however with mobilization the supraspinatus tendon was able to be mobilized to the footprint the humeral head cartilage was medialized a few millimeters with a bur. We then proceeded to place a double loaded posterior medial anchor followed by an anterior anchor at the cartilage edge we then tied the posterior anchor felt additional lateral anchor would be beneficial to aid in footprint contact we therefore placed 4 limbs through the posterior lateral anchor the self-tapping push lock . The ant erior limbs were then secured to a anterior lateral anchor self-tapping tA subacromial decompression with an ArthroCare wand and shaver was performed. There was noted to be anterior spurring of the acromion which was burred to create a flat surface. Performing an anterior acromioplasty. [ Excellent repair was achieved. The wound was thoroughly irrigated through the scope followed by a subacromial injection with 4 mg of morphine and 8 cc of 0.5% Marcaine plain. Suture portals were closed with 3-0 nylon arthroscopic stitches followed by Xeroform 4 x 4 ABD and a I[place] dressing. A abduction sling and pillow was placed. Anesthesia was reversed and patient tolerated the procedure well was and was transferred to the PACU. All counts were correct patient will follow-up in the office in 2 weeks . Patient may begin active elbow and wrist range of motion and pendulums of the shoulder but no active shoulder motion, dressing is to be left on for 48 hours before being changed daily after gigi drake
[2020-04-19 09:49] VITALS: BP 142/69; BP 152/75; PULSE 65; RESP 16; TEMP 36.2; O2SAT 95
[2020-04-19 10:00] VITALS: BP 142/69; BP 154/73; PULSE 68; RESP 16; O2SAT 96
[2020-04-19 10:15] VITALS: BP 142/69; BP 147/64; PULSE 69; RESP 16; O2SAT 97
[2020-04-19 10:21] LABS: Bedside Glucose 161 mg/dL (70-110)
[2020-04-19 10:32] VITALS: BP 142/69; BP 155/76; PULSE 69; RESP 16; TEMP 36.3; O2SAT 97
[2020-04-19 11:48] VITALS: BP 112/60; BP 142/69; PULSE 83; RESP 16; TEMP 36.4; O2SAT 94
== END 2020-04-19 11:50 | disposition home or self-care (01) ==
LOC: SDC 05:55 → AC 05:55
PROVIDERS: Anesthesiology; Internal Medicine Cardiovascular Disease; PCP Internal Medicine; Referring Provider Orthopaedic Surgery; Visit Provider Orthopaedic Surgery
PROC: (CPT 29827; principal; 2020-04-19 07:10)
DX: S46.011A Strain of muscle(s) and tendon(s) of the rotator cuff of right shoulder, initial encounter (principal); S46.211A Strain of muscle, fascia and tendon of other parts of biceps, right arm, initial encounter; W11.XXXA Fall on and from ladder, initial encounter; Y93.9 Activity, unspecified; Y92.9 Unspecified place or not applicable; E78.2 Mixed hyperlipidemia; I25.10 Atherosclerotic heart disease of native coronary artery without angina pectoris; M19.90 Unspecified osteoarthritis, unspecified site; I12.9 Hypertensive chronic kidney disease with stage 1 through stage 4 chronic kidney disease, or unspecified chronic kidney disease; E11.22 Type 2 diabetes mellitus with diabetic chronic kidney disease; N18.9 Chronic kidney disease, unspecified; Z86.711 Personal history of pulmonary embolism; Z87.891 Personal history of nicotine dependence; Z79.899 Other long term (current) drug therapy; Z79.82 Long term (current) use of aspirin; Z79.4 Long term (current) use of insulin
CPT/HCPCS: 01630; 29827; 36415; 80061; 80076; 82962; 85027; 87426; C9803; J7120; C1713; J2405

== ENCOUNTER 2020-04-26 16:54 | Emergency (ER) | payer MEDICARE, OTHER, SELFPAY ==
[2020-04-26 16:55] VITALS: BP 164/95; PULSE 88; RESP 15; TEMP 35.9; O2SAT 100; BMI 20.9
--- NOTE | 2020-04-26 17:07 | CT_ITS ---
STUDY: CT CERVICAL SPINE WITHOUT CONTRAST REASON FOR EXAM: Male, 74 years old. FALL RADIATION DOSAGE (If Supplied By Facility): CTDIvol = ( 18.38 ) mGy, DLP = ( 434.92 ) mGycm TECHNIQUE: High resolution transaxial imaging was performed without contrast material. Sagittal and coronal images were reconstructed. Individualized dose optimization techniques were used for this CT. COMPARISON: Radiographs cervical spine 02/18/2020 FINDINGS: Normal craniovertebral junction. Normal anterior atlantoaxial articulation. Normal odontoid process. Mild dextroconvex scoliosis or torticollis. Normal cervical lordosis. Normal vertebral bodies and posterior osseous elements. C2-3: Normal endplates. Normal disc height and morphology. Normal central canal and intervertebral neuroforamina. C3-4: Normal endplates. Normal disc height and morphology. Normal central canal and intervertebral neuroforamina. C4-5: Normal endplates. Normal disc height and morphology. Normal central canal and intervertebral neuroforamina. C5-6: Normal endplates. Normal disc height and morphology. Normal central canal and intervertebral neuroforamina. C6-7: Normal endplates. Normal disc height and morphology. Normal central canal and intervertebral neuroforamina. C7-T1: Normal endplates. Normal disc height and morphology. Normal central canal and intervertebral neuroforamina. Normal visualized soft tissue structures. CT/Spine Cervical without Contras IMPRESSION: No fracture Electronically Signed: Anthony Domínguez MD at 18:16 EST , Service support ,
--- NOTE | 2020-04-26 17:07 | CT_ITS ---
STUDY: CT FACIAL BONES WITHOUT CONTRAST REASON FOR EXAM: Male, 74 years old. FALL RADIATION DOSAGE (If Supplied By Facility): CTDIvol = ( 29.38 ) mGy, DLP = ( 540.11 ) mGycm TECHNIQUE: The patient was scanned in a multi detector CT scanner. Sagittal and coronal images were reconstructed. Individualized dose optimization techniques were used for this CT. COMPARISON: None. FINDINGS: Normal soft tissue structures. Normal orbital cullen and orbital contents. Nasal bone fractures with slight deviation to the left. There is calcification of the nasal cartilage in the midline. Possible fracture of the anterior maxillary spine. Bony septum is within the midline. Bilateral middle turbinectomies. Normal facial bones. There is no demonstrated fracture. Air-fluid level left maxillary sinus may represent hemorrhage. CT/Sinus/Facial Bone IMPRESSION: Nasal bone fractures as above Electronically Signed: Anthony Domínguez MD at 17:54 EST , Service support ,
--- NOTE | 2020-04-26 17:07 | CT_ITS ---
STUDY: CT BRAIN WITHOUT CONTRAST REASON FOR EXAM: Male, 74 years old. FALL RADIATION DOSAGE (If Supplied By Facility): CTDIvol = ( 44.99 ) mGy, DLP = ( 829.85 ) mGycm TECHNIQUE: Transaxial CT imaging of the brain was performed without administration of intravenous contrast material. Individualized dose optimization techniques were used for this CT. COMPARISON: CT brain 09/30/2016 FINDINGS: Subcutaneous hematoma left forehead. Normal calvarium. There is mild cerebral atrophy with widening of the extra-axial spaces and ventricular dilatation. Normal white matter tracts of the cerebral hemispheres. Normal basal ganglia and thalami. Normal brainstem. Normal cerebellum. Encephalomalacia left temporal lobe anteriorly. There is no intracranial hemorrhage. There are no findings of an acute ischemic infarction. Normal visualized paranasal sinuses. CT/Brain/Head without Contrast IMPRESSION: Left temporal encephalomalacia. No acute disease. Electronically Signed: Anthony Domínguez MD at 17:42 EST , Service support ,
[2020-04-26 17:08] VITALS: BP 163/82; PULSE 88; RESP 22; O2SAT 99
[2020-04-26] MEDS: morphine 10 MG/ML Syringe 4 MG SC (17:11)
--- NOTE | 2020-04-26 17:29 | ED.RN ---
TALKED WITH . SHE DOES STATE PT IS NOT ON A REGULAR BLOOD THINNER NOW BUT IS TAKING AN ASPIRIN A DAY
--- NOTE | 2020-04-26 17:30 | RAD_ITS ---
STUDY: X-RAY - LUMBAR SPINE REASON FOR EXAM: Male, 74 years old. fall down stairs today. c/o back and leg pain. TECHNIQUE: 3 view(s) of the lumbar spine were obtained. COMPARISON: CT lumbar spine from the 2019 FINDINGS: Normal lumbar lordosis. There is no substantial scoliosis. Slight retrolisthesis L1-L2 unchanged. Posterior interbody fusion rods and pedicular screws noted at this level. Hardware appears intact. Laminectomy noted at L2. Grade 2 spondylolisthesis L5-S1. There is multilevel endplate spondylosis of the lumbar vertebrae. Normal disc space heights. The soft tissue structures are unremarkable. RAD/Lumbar Spine 2 or 3 Views IMPRESSION: New posterior interbody fusion L1-2. Retrolisthesis L1-L2 unchanged. Grade 2 spondylolisthesis L5-S1 unchanged. No acute fracture. Electronically Signed: Anthony Domínguez MD at 18:23 EST , Service support ,
--- NOTE | 2020-04-26 17:37 | RAD_ITS ---
STUDY: X-RAY - RIGHT SHOULDER REASON FOR EXAM: Male, 74 years old. fall down stairs today. c/o right shoulder pain. hx of right shoulder surgery x couple weeks ago. TECHNIQUE: 2 view(s) of the shoulder. COMPARISON: 01/20/2020 FINDINGS: Normal glenohumeral articulation. Normal acromioclavicular joint. Normal acromion. New Metallic staple humeral head. Normal humeral head and visualized proximal humerus. The soft tissue structures are unremarkable. Normal visualized pulmonary apex. RAD/Shoulder min 2 Views IMPRESSION: Normal x-ray examination of the shoulder. Electronically Signed: Anthony Domínguez MD at 18:36 EST , Service support ,
--- NOTE | 2020-04-26 17:43 | ED.DCSUM_ITS ---
- ER Visit Summary Date of Service: 04/26/20 Chief Complaint: Fall History of Present Illness: The patient is a 74 M who had a mechanical fall down stairs today. He hit his face. He complains of neck pain, right shoulder pain, lower back pain. Remote history of lumbar laminectomy. Recent history of right shoulder surgery. No loss of consciousness. No thinners. He has some associated abrasions to his face and a bloody nose. No other complaints. Physical Examination: Afebrile and vital signs unremarkable. He has an abrasion to his left nose and epistaxis from his right nostril. He is tearful and appears uncomfortable. Head and neck otherwise atraumatic and nontender. Heart regular. Lungs clear. Abdomen soft. Mild lumbar tenderness. Right shoulder tenderness with sutures in place still. Neurovascular intact distally in all extremities. Good strength and sensation. Test Results: CT head, neck, face pending. X-rays of his shoulder and lumbar spine are pending. Emergency Department Course and Treatment: Patient was treated with pain medicine while awaiting imaging results. X-rays of the shoulder and lumbar spine reviewed by me and the radiologist showed no acute changes. He does have postoperative and chronic changes. No fracture. CT brain showed nothing acute. CT cervical spine showed no fracture. CT face showed a nasal bone fracture with deviation to the left. Septum midline without hematoma. Patient will be discharged home. Rest and ice. Outpatient follow-up. Pain meds as needed. Treatment Plan: As above Disposition: Discharge Impression: Nasal bone fracture, right shoulder strain, lumbar strain This note was generated with [employer] dictation software. It may contain incorrect words, spelling, and punctuation that were not noted in review of the chart prior to signing ED Disposition - Plan for ED Patient: Referrals: Svetlana Casas MD [Primary Care Provider] -
[2020-04-26] MEDS: Morphine 4 MG/ML Syringe SC (17:51)
--- NOTE | 2020-04-26 18:43 | ED.DEP ---
ED Disposition - Plan for ED Patient: Instructions: ED Nose Fracture, with X-Ray Referrals: Svetlana Casas MD [Primary Care Provider] -
== END 2020-04-26 19:07 | disposition home or self-care (01) ==
LOC: ED 17:17
PROVIDERS: Emergency Provider Emergency Medicine; PCP Internal Medicine
DX: S02.2XXA Fracture of nasal bones, initial encounter for closed fracture (principal); S46.911A Strain of unspecified muscle, fascia and tendon at shoulder and upper arm level, right arm, initial encounter; S39.012A Strain of muscle, fascia and tendon of lower back, initial encounter; F17.200 Nicotine dependence, unspecified, uncomplicated; E11.9 Type 2 diabetes mellitus without complications; I25.10 Atherosclerotic heart disease of native coronary artery without angina pectoris; E78.00 Pure hypercholesterolemia, unspecified; W10.9XXA Fall (on) (from) unspecified stairs and steps, initial encounter; Z79.82 Long term (current) use of aspirin
CPT/HCPCS: 70450; 70486; 72100; 72125; 73030; 96374; 96376; 99282

== ENCOUNTER → 2020-06-16 13:19 | Outpatient (CLI) | payer MEDICARE, OTHER, SELFPAY ==
--- NOTE | 2020-06-16 13:22 | RAD_ITS ---
STUDY: X-RAY - LUMBAR SPINE REASON FOR EXAM: Male, 74 years old. back pain TECHNIQUE: 3 view(s) of the lumbar spine were obtained. COMPARISON: 04/26/2020 FINDINGS: Normal lumbar lordosis. There is no substantial scoliosis. There is a normal alignment of the vertebrae. There is multilevel endplate spondylosis of the lumbar vertebrae. There is multi-level degenerative disc disease with multi-level disc space narrowing. Grade 2/3 anterolisthesis of L5 on S1 measuring 2.6 cm. Postsurgical fusion at L1-2, hardware appears intact The soft tissue structures are unremarkable. RAD/Lumbar Spine 2 or 3 Views IMPRESSION: Significant degenerative changes. Anterolisthesis of L5 on S1. Postsurgical changes with intact hardware. No significant change from prior Electronically Signed: Conor Martinez DO at 22:22 EST Tel , Service support ,
== END ==
PROVIDERS: PCP Internal Medicine; Referring Provider Anesthesiology Pain Medicine; Visit Provider Anesthesiology Pain Medicine
DX: M54.5 Low back pain (principal)
CPT/HCPCS: 72100

== ENCOUNTER → 2020-06-28 10:13 | Outpatient (CLI) | payer MEDICARE, OTHER, SELFPAY ==
[2020-06-28 09:38] VITALS: BMI 21.2
[2020-06-28 12:57] LABS: Anion Gap 6 (5-15); BUN 25 mg/dL (7-18); BUN/Creat Ratio 16.9 RATIO (10-20); Chloride 107 mmol/L (98-107); Creatinine, Serum 1.48 mg/dL (0.70-1.30); EST Glomerular Filtration Rate 49 mL/min (>60); Est Glom Filt Rate - Afr Amer 60 mL/min (>60); Glucose 191 mg/dL (74-106); Potassium 4.6 mmol/L (3.5-5.1); Sodium Level 140 mmol/L (136-145)
== END ==
PROVIDERS: PCP Internal Medicine; Visit Provider Internal Medicine
DX: E11.9 Type 2 diabetes mellitus without complications (principal)
CPT/HCPCS: 36415; 80048

== ENCOUNTER 2020-07-05 16:36 | Outpatient (RCR) | payer MEDICARE, OTHER, SELFPAY ==
[2020-06-28 09:38] VITALS: BMI 21.2
[2020-07-05] MEDS: COVID-19 VACC, MRNA(PFIZER)/PF 30 MCG/0.3 ML SYRINGE IM (09:17)
== END 2020-10-04 23:59 ==
LOC: IMMUN 16:36
PROVIDERS: PCP Internal Medicine; Referring Provider Family Medicine; Visit Provider Family Medicine
DX: Z23 Encounter for immunization (principal)
CPT/HCPCS: 0001A; 91300

== ENCOUNTER 2020-07-19 10:30 | Outpatient (RCR) | payer MEDICARE, OTHER, SELFPAY ==
[2020-05-02 13:41] VITALS: BMI 21.0
--- NOTE | 2020-05-10 09:08 | HP.PTEVAL_ITS ---
Patient's Visit Information SANCHEZ LIM is a 74 year old M referred to Physical Therapy by Dr. Jayce Madsen DO with a diagnosis of R shoulder RTC repair. Date of Evaluation: 05/05/20 Physical Therapist: Johnathan Gonzalez DPT - Visit Plan Frequency: 2-3x /Week Duration: 4-6 Weeks Plan: Start slow with patient he is very sore after falling. Start with PROM of R shoulder, progressing as tolerated. May use modalities to reduce symptoms. - Subjective Pt. is here today for his initial evaluation S/P R RTC repair. DOS: 04/19/20. Pt. arrives today with sling on as prescribed. Pt. reports he was doing well until he fell, tripped over his dog enter his home. Pt. reports having increased R shoulder pain since. Pt. was checked by physician who told him that at this point we need to stick to the plan and progress PROM as tolerated. Pt. has been doing pendulums at home. Pt. denies N/T. Pt. reports I really feel like I messsed it up.' Pt. is sleeping okay with sling on. Pt. is hopeful to get back to all recrational activities without limitations. He is to have an injection next week in his R shoulder - Pain R shoulder Pain Intensity (Out of 10): 6 Pain Intensity Range: 4, 8 - Objective POSTURE: pt. keep R UE in gaurded posture, close to self. Normal shoulder heights. PALPATION: Pt. has no signs of infection. Pt. shas tenderness at anterior shoulder, bicipital groove region. Pt. has mild tenderness at subacromial space. NEURO: pt. has normal senstion throughout BUEs. ROM: R Shoulder: PROM: flexion 65deg increase NE, ER at side 19deg increase NW. MMT: did not test this date due to recent surgery. - Goals Goal 1:: LTG: pt. to be I with HEP. Goal Time Frame: 4-6 Weeks Goal 2:: STG: Pt. to have increased PROM of R shoulder to 130deg of flexion and 30deg of ER at side. Goal Time Frame: 2-4 Weeks Goal 3:: LTG: Pt. to have full PROM of R shoulder without increase in symptoms. Goal Time Frame: 4-6 Weeks Goal 4:: STG: pt. to sleep throughout the night without increase in symptoms. Goal Time Frame: 2-4 Weeks Goal 5:: LTG: Pt. to have full AAROM of R shoulder without incerase in symptoms. Goal Time Frame: 6-8 Weeks - Rehabilitation Potential Physical Therapy Diagnosis: Pt. has signs and symptoms consistent S/P R shoulder RTC repair. Pt. did have a recent fall resulting in increased pain of his R shoulder. He is still hypomobile as expected and having higher levels of pain. Pt. would benefit from PT to addresss above limitations, working on PROM initially. Rehabilitation Potential: Good - Anticipated Interventions Patient/Client Instruction: Educate patient on: Condition, Plan of Care, Risk Factors, Benefits of Fitness Program For the Purpose of:: To facilitate caregiver knowledge, To improve self management, To prevent re-injury, To improve ability to perform tasks related to life management, To improve tolerance to ADL's Therapeutic Exercise to Include: Strength training, Power training, Endurance training, Postural training, Flexibilty training, Passive ROM, Active ROM, Scapular Strength/Stabilization For the Purpose of:: To decrease pain, To decrease swelling/inflammation, To increase ROM, To improve nutrient delivery to tissue, To increase oxygenation perfusion, To improve muscle performance and motor function, To improve ability to perform ADL's, To increase tolerance to activity/condition/position, To improve health of tissue, To decrease soft tissue restriction, To increase flexibility/ROM Manual Therapy Techniques to Include: Passive ROM, Soft tissue mobilization For the Purpose of:: To decrease pain, To decrease swelling/inflammation, To increase ROM, To improve nutrient delivery to tissue, To increase oxygenation perfusion IF ES: Yes Cryotherapy (ice pack, ice massage): Yes Thermo therapy (hot pack): Yes For the Purpose of:: To decrease pain, To decrease swelling/inflammation, To increase ROM, To improve nutrient delivery to tissue, To increase oxygenation perfusion Thank you for the opportunity to evaluate your patient. For Medicare and Medicare HMO plans, please review the plan of care and approve it. It will need to be FAXED BACK to us at [phone] for Medicare purposes. For Medicare only, by signing this I certify the plan of care. Please let me know if there are questions or concerns regarding this plan of care. Physician Cammy johnson: Date:
--- NOTE | 2020-06-21 11:23 | HP.PTREVAL ---
Dr. Jayce Madsen, DO, It has been my pleasure to treat SANCHEZ LIM over the last 14 visits for R shoulder RTC repair. Please see the progress note below for an update on the physical therapy plan of care! Subjective: Pt. reports overall doing well. I was a little sore this morning, but I am doing better now.' Pt. reports being 70% better overall. HEP compliant. Objective/Function: ROM: AROM: flexion 145deg, abd 130deg, functional ER C3 aberrant motion, functional IR L5 aberrant motion. PROM: Flexion 155deg, abd 145dge, ER at 90deg of abd 70deg, IR at 90deg of abd 45deg. MMT: 4/5 throughout, except shoulder ext 4+/5, add 4/5. Plan Plan: Cont. to progress end ROM as toelrated. Add in strength progression phase III as tolerated. Start slowly. Goals Goal 1:: LTG: pt. to be I with HEP. Goal Time Frame: 4-6 Weeks Goal Progress: Progressing Goal 2:: STG: Pt. to have increased PROM of R shoulder to 130deg of flexion and 30deg of ER at side. Goal Time Frame: 2-4 Weeks Goal Progress: Goal Met Goal 3:: LTG: Pt. to have full PROM of R shoulder without increase in symptoms. Goal Time Frame: 4-6 Weeks Goal Progress: Progressing Goal 4:: STG: pt. to sleep throughout the night without increase in symptoms. Goal Time Frame: 4-6 Weeks Goal Progress: Goal Met Goal 5:: LTG: Pt. to have full AAROM of R shoulder without incerase in symptoms. Goal Time Frame: 6-8 Weeks Goal Progress: Progressing Anticipated Interventions Patient/Client Instruction: Educate patient on: Condition, Plan of Care, Risk Factors, Benefits of Fitness Program For the Purpose of:: To facilitate caregiver knowledge, To improve self management, To prevent re-injury, To improve ability to perform tasks related to life management, To improve tolerance to ADL's Therapeutic Exercise to Include: Strength training, Power training, Endurance training, Postural training, Flexibilty training, Passive ROM, Active ROM, Scapular Strength/Stabilization For the Purpose of:: To decrease pain, To decrease swelling/inflammation, To increase ROM, To improve nutrient delivery to tissue, To increase oxygenation perfusion, To improve muscle performance and motor function, To improve ability to perform ADL's, To increase tolerance to activity/condition/position, To improve health of tissue, To decrease soft tissue restriction, To increase flexibility/ROM Manual Therapy Techniques to Include: Passive ROM, Soft tissue mobilization For the Purpose of:: To decrease pain, To decrease swelling/inflammation, To increase ROM, To improve nutrient delivery to tissue, To increase oxygenation perfusion IF ES: Yes Cryotherapy (ice pack, ice massage): Yes Thermo therapy (hot pack): Yes For the Purpose of:: To decrease pain, To decrease swelling/inflammation, To increase ROM, To improve nutrient delivery to tissue, To increase oxygenation perfusion Please do not hesitate to contact me at [phone] by phone or if you have questions or concerns regarding this new plan of care! Sincerely, DEVAN JamesonT
--- NOTE | 2020-07-20 09:16 | HP.PTREVAL ---
Dr. Jayce Madsen, DO, It has been my pleasure to treat SANCHEZ LIM over the last 18 visits for R shoulder RTC repair. Please see the progress note below for an update on the physical therapy plan of care! Subjective: Pt. reports overall doing well. Pt. reports not much pain not. I do get some popping in my shoulder, but overall I am doing okay.' He reports being HEP compliant. Objective/Function: Pt. is overall doing well, He has good PROM, slightly limted end range of flexion and abduction ROM activitely, but is getting better. He reports some popping in his shoulder, but is overall pleased with his ability to use his arm. Pt. reports minimal pain with most daily activities. Plan Plan: Pt. wants to do exercises independently for a few weeks to trial. Pt. to trial exercises on own for 2-3 weeks. Pt. to call and return to PT if is not progressing or has any set backs. Goals Goal 1:: LTG: pt. to be I with HEP. Goal Time Frame: 4-6 Weeks Goal Progress: Goal Met Goal 2:: STG: Pt. to have increased PROM of R shoulder to 130deg of flexion and 30deg of ER at side. Goal Time Frame: 2-4 Weeks Goal Progress: Goal Met Goal 3:: LTG: Pt. to have full PROM of R shoulder without increase in symptoms. Goal Time Frame: 4-6 Weeks Goal Progress: Progressing Goal 4:: STG: pt. to sleep throughout the night without increase in symptoms. Goal Time Frame: 4-6 Weeks Goal Progress: Goal Met Goal 5:: LTG: Pt. to have full AAROM of R shoulder without incerase in symptoms. Goal Time Frame: 6-8 Weeks Goal Progress: Progressing Anticipated Interventions Patient/Client Instruction: Educate patient on: Condition, Plan of Care, Risk Factors, Benefits of Fitness Program For the Purpose of:: To facilitate caregiver knowledge, To improve self management, To prevent re-injury, To improve ability to perform tasks related to life management, To improve tolerance to ADL's Therapeutic Exercise to Include: Strength training, Power training, Endurance training, Postural training, Flexibilty training, Passive ROM, Active ROM, Scapular Strength/Stabilization For the Purpose of:: To decrease pain, To decrease swelling/inflammation, To increase ROM, To improve nutrient delivery to tissue, To increase oxygenation perfusion, To improve muscle performance and motor function, To improve ability to perform ADL's, To increase tolerance to activity/condition/position, To improve health of tissue, To decrease soft tissue restriction, To increase flexibility/ROM Manual Therapy Techniques to Include: Passive ROM, Soft tissue mobilization For the Purpose of:: To decrease pain, To decrease swelling/inflammation, To increase ROM, To improve nutrient delivery to tissue, To increase oxygenation perfusion IF ES: Yes Cryotherapy (ice pack, ice massage): Yes Thermo therapy (hot pack): Yes For the Purpose of:: To decrease pain, To decrease swelling/inflammation, To increase ROM, To improve nutrient delivery to tissue, To increase oxygenation perfusion Please do not hesitate to contact me at [phone] by phone or if you have questions or concerns regarding this new plan of care! Sincerely, DEVAN JamesonT
--- NOTE | 2020-10-05 11:52 | HP.PTDCNRP_ITS ---
SANCHEZ LIM was seen in my office for initial evaluation on 05/05/20. The following Plan of Care was established for this patient: Initial Frequency: 2-3x /Week Initial Duration: 4-6 Weeks Patient/Client Instruction: Educate patient on: Condition, Plan of Care, Risk Factors, Benefits of Fitness Program For the Purpose of:: To facilitate caregiver knowledge, To improve self management, To prevent re-injury, To improve ability to perform tasks related to life management, To improve tolerance to ADL's Therapeutic Exercise to Include: Strength training, Power training, Endurance training, Postural training, Flexibilty training, Passive ROM, Active ROM, Scapular Strength/Stabilization For the Purpose of:: To decrease pain, To decrease swelling/inflammation, To increase ROM, To improve nutrient delivery to tissue, To increase oxygenation perfusion, To improve muscle performance and motor function, To improve ability to perform ADL's, To increase tolerance to activity/condition/position, To improve health of tissue, To decrease soft tissue restriction, To increase flexibility/ROM Manual Therapy Techniques to Include: Passive ROM, Soft tissue mobilization For the Purpose of:: To decrease pain, To decrease swelling/inflammation, To increase ROM, To improve nutrient delivery to tissue, To increase oxygenation perfusion IF ES: Yes Cryotherapy (ice pack, ice massage): Yes Thermo therapy (hot pack): Yes For the Purpose of:: To decrease pain, To decrease swelling/inflammation, To increase ROM, To improve nutrient delivery to tissue, To increase oxygenation perfusion This patient was last seen in our office 07/19/20. Pertinent comments regarding their Physical therapy will appear below: Pt. was seen in PT for her R shoulder RTC repair. He was doing better. He was to complete his exercise on his own and follow up with PT if needed. pt. has not be en seen in several weeks and will be DC from PT at this point time. At this point I will be discontinuing this patient from physical therapy. I would be happy to see this patient again in the future if found appropriate by the physician. Thank you! Johnathan Gonzalez, DEVANT
== END 2020-07-19 19:00 | disposition home or self-care (01) ==
LOC: PT 10:30
PROVIDERS: PCP Internal Medicine; Referring Provider Orthopaedic Surgery; Visit Provider Orthopaedic Surgery
DX: Z98.890 Other specified postprocedural states (principal)
CPT/HCPCS: 97035; 97110; 97140; 97161; 97164

== ENCOUNTER → 2020-07-19 12:55 | Outpatient (CLI) | payer MEDICARE, OTHER, SELFPAY ==
[2020-07-19 13:58] LABS: Amphetamine Urine VISTA NEGATIVE (<1000 ng/mL); Barbiturate Urine VISTA NEGATIVE (< 200 ng/mL); Benzodiazepine Urine VISTA NEGATIVE (< 200 ng/mL); Cocaine Urine VISTA NEGATIVE (< 300 ng/mL); Ecstacy Urine VISTA POSITIVE (< 500 ng/mL); Methadone Urine VISTA NEGATIVE (< 300 ng/mL); PCP Urine VISTA NEGATIVE (< 25 ng/mL); THC Urine VISTA NEGATIVE (< 50 ng/mL); Vista UDS pH Range 6
== END ==
PROVIDERS: PCP Internal Medicine; Referring Provider Anesthesiology Pain Medicine; Visit Provider Anesthesiology Pain Medicine
DX: F11.20 Opioid dependence, uncomplicated (principal)
CPT/HCPCS: 80307

== ENCOUNTER → 2020-09-27 10:52 | Outpatient (CLI) | payer MEDICARE, OTHER, SELFPAY ==
[2020-09-27 10:31] VITALS: BMI 21.2
[2020-09-27 12:47] LABS: Anion Gap 5 (5-15); BUN 31 mg/dL (7-18); BUN/Creat Ratio 20.9 RATIO (10-20); Calcium,Total 9.9 mg/dL (8.5-10.1); Chloride 110 mmol/L (98-107); Creatinine, Serum 1.48 mg/dL (0.70-1.30); EST Glomerular Filtration Rate 49 mL/min (>60); Est Glom Filt Rate - Afr Amer 60 mL/min (>60); Glucose 73 mg/dL (74-106); Potassium 4.2 mmol/L (3.5-5.1); Sodium Level 141 mmol/L (136-145)
[2020-09-27 13:00] LABS: Microalbumin:Creatinine Ratio 137.1 mg/g CRE (<30 mg/g CRE)
== END ==
PROVIDERS: PCP Internal Medicine; Visit Provider Internal Medicine
DX: I10 Essential (primary) hypertension (principal); E11.8 Type 2 diabetes mellitus with unspecified complications
CPT/HCPCS: 36415; 80048; 82043; 82570

== ENCOUNTER → 2020-10-19 08:25 | Outpatient (CLI) | payer MEDICARE, OTHER, SELFPAY ==
[2020-10-17 11:46] VITALS: BMI 21.5
[2020-10-19 09:03] LABS: Hematocrit 39.6 % (40-54); Hemoglobin 12.8 g/dL (13.0-16.5); Mean Corp Hgb Conc 32.3 g/dL (32-36); Mean Corpuscular Volume 95.9 fL (80-94); Mean Platelet Vol. 9.7 fl (6.2-12.0); Platelet Count 212 K/mm3 (150-450); RBC Distribution Width CV 13.6 % (11.6-14.6); RBC Distribution Width SD 47.8 fl (35.1-43.9); Red Blood Count 4.13 M/mm3 (4.6-6.2); White Blood Count 8.2 K/mm3 (4.4-11.0)
[2020-10-19 09:22] LABS: Prothrombin Time (Protime)PT. 12.6 SECONDS (11.7-14.9)
[2020-10-19 09:32] LABS: Anion Gap 6 (5-15); BUN 25 mg/dL (7-18); Calcium,Total 9.3 mg/dL (8.5-10.1); Chloride 109 mmol/L (98-107); Creatinine, Serum 1.39 mg/dL (0.70-1.30); EST Glomerular Filtration Rate 53 mL/min (>60); Est Glom Filt Rate - Afr Amer 64 mL/min (>60); Glucose 72 mg/dL (74-106); Potassium 4.8 mmol/L (3.5-5.1); Sodium Level 143 mmol/L (136-145)
== END ==
PROVIDERS: PCP Internal Medicine; Referring Provider Internal Medicine; Visit Provider Internal Medicine Cardiovascular Disease
DX: I25.10 Atherosclerotic heart disease of native coronary artery without angina pectoris (principal); Z95.5 Presence of coronary angioplasty implant and graft; Z95.818 Presence of other cardiac implants and grafts; E78.00 Pure hypercholesterolemia, unspecified
CPT/HCPCS: 36415; 80048; 85027; 85610

== ENCOUNTER 2020-11-04 06:46 | Day surgery (SDC) | payer MEDICARE, OTHER, SELFPAY ==
[2020-10-17 11:46] VITALS: BMI 21.5
[2020-11-02 14:42] VITALS: BMI 21.4
--- NOTE | 2020-11-04 08:23 | CL.IE_ITS ---
Patient: SANCHEZ LIM Study Date: 11/04/2020 Performing: Layo Whitten MD : 1945 Age: 75 Gender: male PROCEDURES PERFORMED [id number] OF LOOP RECORDER INDICATIONS Syncope PROCEDURE DETAILS The patient was brought to the Catheterization Lab in the postabsorptive nonsedated state. Infor med consent was obtained prior to the procedure. Local anesthetic was given subcutaneously to the le ft upper chest area with Lidocaine 2%. Incision was made to the left upper chest. Steri-strips applie d to Lt chest area. The patient tolerated the procedure well. Estimated Blood Loss: 3 ml's IMPLANTED / EX-PLANTED DEVICES EXPLANTED DEVICE(S): ICM Loop Recorder - Commissioning Agent: [employer] DEVICE PARAMETERS CONCLUSIONS / RECOMMENDATIONS Device Conclusions: Successful removal of a patient activated loop recorder. Device Recommendations: Follow up with Primary Care Physician PROCEDURE MEDICATIONS Versed 1 mg IV Antibiotic given in appropriate timeframe. Ancef 2 Gm IV @ 11/04/2020 07:44:14 Signed By Layo Whitten MD On 11/04/2020 08:23:21 Layo Whitten MD
== END 2020-11-04 09:20 | disposition home or self-care (01) ==
LOC: CLSP 06:47
PROVIDERS: PCP Internal Medicine; Referring Provider Internal Medicine Cardiovascular Disease; Visit Provider Internal Medicine Cardiovascular Disease
DX: R55 Syncope and collapse (principal); I25.10 Atherosclerotic heart disease of native coronary artery without angina pectoris; F32.9 Major depressive disorder, single episode, unspecified; M19.90 Unspecified osteoarthritis, unspecified site; I12.9 Hypertensive chronic kidney disease with stage 1 through stage 4 chronic kidney disease, or unspecified chronic kidney disease; E11.22 Type 2 diabetes mellitus with diabetic chronic kidney disease; N18.30 Chronic kidney disease, stage 3 unspecified; M54.9 Dorsalgia, unspecified; G89.29 Other chronic pain; E78.2 Mixed hyperlipidemia; I73.9 Peripheral vascular disease, unspecified; Z87.891 Personal history of nicotine dependence; Z79.82 Long term (current) use of aspirin; Z79.899 Other long term (current) drug therapy; Z79.84 Long term (current) use of oral hypoglycemic drugs; Z98.61 Coronary angioplasty status
CPT/HCPCS: 33286; 99152; 99153; J7040

== ENCOUNTER → 2021-02-27 15:22 | Outpatient (CLI) | payer MEDICARE, OTHER, SELFPAY ==
[2021-02-27 16:42] LABS: Absolute Lymphocyte Count 1.73 X10^3/uL (0.83-4.51); Absolute Neutrophil Count 4.2 X10^3/uL (2.0-7.7); Basophil# 0.05 X10^3/uL; Basophil% 0.8 % (0-1); Eosinophils% 1.5 % (0-5); Hematocrit 37.2 % (40-54); Hemoglobin 12.1 g/dL (13.0-16.5); Lymphocyte # 1.73 X10^3/ul (0.83-4.51); Mean Corp Hgb Conc 32.5 g/dL (32-36); Mean Corpuscular Hgb 30.4 pg (27.0-32.0); Mean Corpuscular Volume 93.5 fL (80-94); Mean Platelet Vol. 10.6 fl (6.2-12.0); Monocyte# 0.54 X10^3/uL; Monocyte% 8.1 % (0-10); NRBC Flagged by Analyzer 0 % (0-5); Neutrophil # 4.22 X10^3/uL (2.7-7.7); Neutrophil % 63.3 % (47-70); Platelet Count 184 K/mm3 (150-450); RBC Distribution Width SD 44.1 fl (35.1-43.9); Red Blood Count 3.98 M/mm3 (4.6-6.2); White Blood Count 6.7 K/mm3 (4.4-11.0)
[2021-02-27 16:57] LABS: ALB/GLOB Ratio 1.2 RATIO (0.9-2.4); AST(SGOT) 25 U/L (15-37); Alanine Aminotransfer ALT/SGPT 35 U/L (16-61); Albumin, Serum 3.7 g/dL (3.2-5.0); Alkaline Phosphatase 88 U/L (45-117); Anion Gap 6 (5-15); BUN 22 mg/dL (7-18); BUN/Creat Ratio 14.8 RATIO (10-20); Calcium,Total 9.3 mg/dL (8.5-10.1); Chloride 106 mmol/L (98-107); Creatinine, Serum 1.49 mg/dL (0.70-1.30); EST Glomerular Filtration Rate 49 mL/min (>60); Est Glom Filt Rate - Afr Amer 59 mL/min (>60); Globulin 3.2 g/dL (2.2-4.2); Glucose 174 mg/dL (74-106); Potassium 4.6 mmol/L (3.5-5.1); Protein, Total 6.9 g/dL (6.4-8.2); Sodium Level 137 mmol/L (136-145)
== END ==
PROVIDERS: PCP Internal Medicine; Referring Provider Internal Medicine; Visit Provider Internal Medicine
DX: E11.8 Type 2 diabetes mellitus with unspecified complications (principal); I10 Essential (primary) hypertension
CPT/HCPCS: 36415; 80053; 85025

== ENCOUNTER → 2021-04-03 11:12 | Outpatient (CLI) | payer MEDICARE, OTHER, SELFPAY ==
[2021-04-03 12:26] LABS: Absolute Neutrophil Count 3.8 X10^3/uL (2.0-7.7); Basophil# 0.09 X10^3/uL; Basophil% 1.5 % (0-1); Eosinophil# 0.43 X10^3/uL; Hematocrit 37.7 % (40-54); Hemoglobin 11.7 g/dL (13.0-16.5); Lymphocyte % 21.1 % (19-41); Mean Corpuscular Hgb 29.1 pg (27.0-32.0); Mean Corpuscular Volume 93.8 fL (80-94); Mean Platelet Vol. 10.4 fl (6.2-12.0); Monocyte# 0.52 X10^3/uL; Monocyte% 8.4 % (0-10); NRBC Flagged by Analyzer 0 % (0-5); Neutrophil # 3.79 X10^3/uL (2.7-7.7); Neutrophil % 61.5 % (47-70); Platelet Count 253 K/mm3 (150-450); RBC Distribution Width CV 13.5 % (11.6-14.6); RBC Distribution Width SD 45.9 fl (35.1-43.9); Red Blood Count 4.02 M/mm3 (4.6-6.2); White Blood Count 6.2 K/mm3 (4.4-11.0)
[2021-04-03 13:09] LABS: Anion Gap 8 (5-15); BUN 21 mg/dL (7-18); BUN/Creat Ratio 13.5 RATIO (10-20); Chloride 105 mmol/L (98-107); Cholesterol 148 mg/dL (200); Creatinine, Serum 1.56 mg/dL (0.70-1.30); EST Glomerular Filtration Rate 46 mL/min (>60); Est Glom Filt Rate - Afr Amer 56 mL/min (>60); Glucose 208 mg/dL (74-106); High Density Lipoprotein 48 mg/dL; Potassium 5.2 mmol/L (3.5-5.1); Sodium Level 138 mmol/L (136-145); Thyroid Stim Hormone (TSH) 3.41 uIU/mL (0.358-3.74); Triglycerides 292 mg/dL; Very Low Density Lipoprotein 58 mg/dL (5-40)
== END ==
PROVIDERS: PCP Internal Medicine; Referring Provider Internal Medicine; Visit Provider Internal Medicine
DX: E11.8 Type 2 diabetes mellitus with unspecified complications (principal); E03.9 Hypothyroidism, unspecified
CPT/HCPCS: 36415; 80048; 80061; 84443; 85025

== ENCOUNTER → 2021-04-07 07:06 | Outpatient (CLI) | payer MEDICARE, OTHER, SELFPAY ==
--- NOTE | 2021-04-07 10:09 | STRESSREP ---
Stress Test Report Date: 04-07-2021 Procedure: Pharmacologic stress nuclear imaging study Indications: Abnormal ECG; CAD; PCI Consent: Per the patient Procedure: The patient underwent pharmacologic (Regadenoson 0.4mg ) evaluation with a peak heart rate of 85 beats per minute (58%predicted maximal heart rate) and a peak blood pressure of 154/80 mmHg. The baseline ECG demonstrated normal sinus rhythm. The peak pharmacologic ECG demonstrated no obvious ECG changes. There was an isolated PVC during recovery. There was no complaint of chest discomfort during pharmacologic infusion or recovery. The examination was discontinued secondary to completion of protocol. Impression: 1. Pharmacologic (Regadenoson) evaluation 2. Peak pharmacologic ECG with no obvious ECG changes. 3. There was an isolated PVC during recovery. 4. Nuclear images pending Myocardial perfusion imaging study: Technique: The patient was injected with 12.0 millicuries of technetium 99m Cardiolite and subsequently rest SPECT Cardiolite nuclear imaging was obtained in the horizontal long, vertical long, and short axis views. The patient underwent pharmacologic (Regadenoson) evaluation with a peak heart rate of 85 beats per minute (58% percent predicted maximal heart rate) and a peak blood pressure of 154/80 mmHg. The patient was injected with 35.0 millicuries of technetium 99m Cardiolite and subsequently stress SPECT Cardiolite nuclear imaging was obtained in the horizontal long, vertical long, and short axis views. A gated Cardiolite study at peak stress was obtained. Interpretation: Rest and stress SPECT Cardiolite nuclear imaging status post realignment, normalization, and attenuation correction demonstrate relative uniform tracer uptake and myocardial perfusion appearing within normal limits. There is end systolic thickening and brightening. The gated Cardiolite study demonstrates myocardial thickening and inward wall motion. The reported LVEF is 64%. Impression: 1. Rest and stress SPECT Cardiolite nuclear imaging demonstrate relative uniform tracer uptake and myocardial perfusion appearing within normal limits. 2. The gated Cardiolite study reports an LVEF of 64%. This note was generated with [employer] software. It may contain incorrect words, spelling, and punctuation that were not noted in checking the note before signing.
== END ==
PROVIDERS: PCP Internal Medicine; Referring Provider Internal Medicine; Visit Provider Internal Medicine
DX: R94.31 Abnormal electrocardiogram [ECG] [EKG] (principal)
CPT/HCPCS: 78452; 93017; A9500; A4216; J2785

== ENCOUNTER 2021-06-19 12:00 | Outpatient (RCR) | payer MEDICARE, OTHER, SELFPAY ==
--- NOTE | 2021-03-20 12:52 | HP.PTEVAL ---
Patient's Visit Information SANCHEZ LIM is a 75 year old M referred to Physical Therapy by [facility] Doctor with a diagnosis of Post op R TKA. Date of Evaluation: 03/20/21 Physical Therapist: Shyanne Phillips - Visit Plan Frequency: 2x /Week Duration: 3 Months Plan: Continue Phase I of TKA, progress through Phases II-IV as appropriate following protocol. - Subjective Pt is post op total R shoulder replacement 03/13. He had fallen off a ladder about a year and a half ago and had subsequent shoulder surgery, but fell again after that surgery. Surgeons opted for total replacement this time around. Pt reported surgery went well and only had an overnight stay. Reports he has been compliant with Phase 1 exercises at home thus far without issue. Pt is not yet cleared to drive. Pt reports mild N&T under arm on trunk, but denies radiating down arm. Pain: Under arm on trunk 3/10 at rest. At worst, pain is 4-5/10. Pt is taking his prescription pain meds but denies use of ice. - Pain R shoulder Pain Intensity (Out of 10): 3 Pain Intensity Range: 3, 5 - Objective PROM: R shoulder flexion in scap plane: 40 degrees, with elbow at side 23 degrees ER, IR to chest with elbow at side, abduction 40 degrees. elbow, wrist, hand WNL. No MMT on R shoulder, but pt able to perform isometric contraction in R shoulder F/E, Ab/Ad, IR/ER (mild pain with adduction and ER isometrics). Incision unremarkable, no stitching or nona. No excessive redness or swelling noted. - Balance/Special Test Scores Quick DASH Score: 65.9075 - Goals Goal 1:: Pt to be I with HEP Goal Time Frame: 2-4 Weeks Goal 2:: STG: Pt to have 90 degrees AAROM shoulder flexion and abduction Goal Time Frame: 4-6 Weeks Goal 3:: STG: Pt to have 40 degrees AAROM ER/IR rotation Goal Time Frame: 4-6 Weeks Goal 4:: Pt to have full AROM of R shoulder Goal Time Frame: 8-12 Weeks Goal 5:: Pt to report ability to participate in all ADLs without difficulty or compensation. Goal Time Frame: 6-8 Weeks - Rehabilitation Potential Physical Therapy Diagnosis: Pt presents with decreased ROM, strength secondary to recent R TKA resulting in decreased participation in ADLs and extracurricular activities. Rehabilitation Potential: Good - Anticipated Interventions Patient/Client Instruction: Educate patient on: Condition, Plan of Care Therapeutic Exercise to Include: Strength training, Passive ROM, Active ROM For the Purpose of:: To increase ROM, To improve ability to perform ADL's Manual Therapy Techniques to Include: Mobilization Thank you for the opportunity to evaluate your patient. For Medicare and Medicare HMO plans, please review the plan of care and approve it. It will need to be FAXED BACK to us at [phone] for Medicare purposes. For Medicare only, by signing this I certify the plan of care. Please let me know if there are questions or concerns regarding this plan of care. Physician Signature: Date:
--- NOTE | 2021-04-17 12:05 | HP.PTREVAL ---
Out of Town Doctor, It has been my pleasure to treat SANCHEZ LIM over the last 9 visits for Post-Op R TSA 03/13/21. Please see the progress note below for an update on the physical therapy plan of care! Subjective: Pt. reports overall doing better. It feels better when I keep it moving. 3/10 pain pre treatment. Pt. to see physician in ~4 weeks. Objective/Function: Pt. is doing very well. Good AAROM motion, missing ~20deg of flexion, ~20 deg of abd, PROM loss of 10deg flexion abd abuction. He is progressing into phase II well. I want to progress to AAROM as tolerated and end range PROM. Plan Plan: Progress to phase II and end range I as tolerated. Balance/Gait/Functional tests - Balance/Special Test Scores Quick DASH Score: 29.5450 Goals Goal 1:: Pt to be I with HEP Goal Time Frame: 2-4 Weeks Goal Progress: Progressing Goal 2:: STG: Pt to have 90 degrees AAROM shoulder flexion and abduction Goal Time Frame: 4-6 Weeks Goal Progress: Goal Met Goal 3:: STG: Pt to have 40 degrees AAROM ER/IR rotation Goal Time Frame: 4-6 Weeks Goal Progress: Progressing Goal 4:: Pt to have full AROM of R shoulder Goal Time Frame: 8-12 Weeks Goal Progress: Progressing Goal 5:: Pt to report ability to participate in all ADLs without difficulty or compensation. Goal Time Frame: 6-8 Weeks Goal Progress: Progressing Anticipated Interventions Patient/Client Instruction: Educate patient on: Condition, Plan of Care Therapeutic Exercise to Include: Strength training, Passive ROM, Active ROM For the Purpose of:: To increase ROM, To improve ability to perform ADL's Manual Therapy Techniques to Include: Mobilization Please do not hesitate to contact me at [phone] by phone or if you have questions or concerns regarding this new plan of care! Sincerely, Johnathan Gonzalez DPT
--- NOTE | 2021-06-07 10:18 | HP.PTREVAL ---
Dr. Kyaw Willis MD, It has been my pleasure to treat SANCHEZ LIM over the last 22 visits for Post-Op R TSA 03/13/21. Please see the progress note below for an update on the physical therapy plan of care! Subjective: Pt. is overall doing well. His ROM passively is great. He does need to continue to work on his AROM. Pt. reports no pain at rest. Objective/Function: Pt. has good passive ROM. Pt. is limited with AROM. R shoulder flexion 115deg, abd 105deg, functional ER C3, functional IR L5. MMT: R shoulder: flexion 4-/5, abd 4-/5, ext 5/5, IR 5/5. He is significant weaker into upper ranges of flexion and abd. I want him to work on wall slides with eccentric lowering, wand execises with increased RUE use, deltoid strengthening as tolerated. He is to follow up with physician in a week. Plan Plan: I want him to work on wall slides with eccentric lowering, wand exercises with increased RUE use, deltoid strengthening as tolerated. He is to follow up with physician in a week. Balance/Gait/Functional tests - Balance/Special Test Scores Quick DASH Score: 27.2720 Goals Goal 1:: Pt to be I with HEP Goal Time Frame: 2-4 Weeks Goal Progress: Progressing Goal 2:: STG: Pt to have 90 degrees AAROM shoulder flexion and abduction Goal Time Frame: 4-6 Weeks Goal Progress: Goal Met Goal 3:: STG: Pt to have 40 degrees AAROM ER/IR rotation Goal Time Frame: 4-6 Weeks Goal Progress: Progressing Goal 4:: Pt to have full AROM of R shoulder Goal Time Frame: 8-12 Weeks Goal Progress: Progressing Goal 5:: Pt to report ability to participate in all ADLs without difficulty or compensation. Goal Time Frame: 6-8 Weeks Goal Progress: Progressing Anticipated Interventions Patient/Client Instruction: Educate patient on: Condition, Plan of Care Therapeutic Exercise to Include: Strength training, Passive ROM, Active ROM For the Purpose of:: To increase ROM, To improve ability to perform ADL's Manual Therapy Techniques to Include: Mobilization Please do not hesitate to contact me at [phone] by phone or if you have questions or concerns regarding this new plan of care! Sincerely, Johnathan Gonzalez DPT
--- NOTE | 2021-10-10 13:22 | HP.PT.NRP ---
SANCHEZ LIM was seen in my office for initial evaluation on 03/20/21. The following Plan of Care was established for this patient: Initial Frequency: 2x /Week Initial Duration: 3 Months Patient/Client Instruction: Educate patient on: Condition, Plan of Care Therapeutic Exercise to Include: Strength training, Passive ROM, Active ROM For the Purpose of:: To increase ROM, To improve ability to perform ADL's Manual Therapy Techniques to Include: Mobilization This patient was last seen in our office . Pertinent comments regarding their Physical therapy will appear below: Pt was last treated for R shoulder pain on the date of 06/19/21. Pt has not returned through todays date and is discontinued at this time. At this point I will be discontinuing this patient from physical therapy. I would be happy to see this patient again in the future if found appropriate by the physician. Thank you! Davide Portillo, PT, ATC Balance/Gait/Functional tests - Balance/Special Test Scores Quick DASH Score: 27.2902
== END 2021-06-19 19:00 | disposition home or self-care (01) ==
LOC: PT 12:00
PROVIDERS: PCP Internal Medicine; Referring Provider Orthopaedic Surgery; Visit Provider Orthopaedic Surgery
DX: Z47.1 Aftercare following joint replacement surgery (principal); Z96.611 Presence of right artificial shoulder joint
CPT/HCPCS: 97110; 97140; 97161; 97164

== ENCOUNTER 2021-06-27 15:39 | Outpatient (CLI) | payer MEDICARE, OTHER, SELFPAY ==
[2021-06-27 16:53] LABS: Hematocrit 37.5 % (40-54); Hemoglobin 11.9 g/dL (13.0-16.5); Mean Corp Hgb Conc 31.7 g/dL (32-36); Mean Corpuscular Hgb 27.9 pg (27.0-32.0); Platelet Count 236 K/mm3 (150-450); RBC Distribution Width CV 14.2 % (11.6-14.6); Red Blood Count 4.26 M/mm3 (4.6-6.2); White Blood Count 7.9 K/mm3 (4.4-11.0)
[2021-06-27 17:20] LABS: Albumin, Serum 3.9 g/dL (3.2-5.0); BUN 21 mg/dL (7-18); BUN/Creat Ratio 13.4 RATIO (10-20); Calcium,Total 9.4 mg/dL (8.5-10.1); Chloride 105 mmol/L (98-107); Creatinine, Serum 1.57 mg/dL (0.70-1.30); EST Glomerular Filtration Rate 46 mL/min (>60); Est Glom Filt Rate - Afr Amer 56 mL/min (>60); Glucose 157 mg/dL (74-106); Phosphorus 2.6 mg/dL (2.5-4.9); Potassium 4.2 mmol/L (3.5-5.1); Sodium Level 135 mmol/L (136-145)
[2021-06-27 17:29] LABS: Vitamin D,25 Hydroxy 37.8 ng/mL
[2021-06-28 08:47] LABS: PTHIN 44.7 pg/mL (18.4-80.1)
== END 2021-06-27 23:59 | disposition home or self-care (01) ==
PROVIDERS: PCP Internal Medicine; Referring Provider Internal Medicine Nephrology; Visit Provider Internal Medicine Nephrology
DX: N18.31 Chronic kidney disease, stage 3a (principal)
CPT/HCPCS: 36415; 80069; 82306; 82570; 83970; 84156; 85027

== ENCOUNTER 2021-06-30 11:34 | Outpatient (CLI) | payer MEDICARE, OTHER, SELFPAY ==
[2021-06-30 12:38] LABS: Protein, Urine (Random) 44.3 mg/dL (<11.9); Protein:Creat Ratio 418 mg/g CRE (0-200)
== END 2021-06-30 23:59 | disposition home or self-care (01) ==
LOC: LAB 11:39 → LABSPEC 11:41
PROVIDERS: PCP Internal Medicine; Visit Provider Internal Medicine Nephrology
DX: N18.31 Chronic kidney disease, stage 3a (principal)
CPT/HCPCS: 82570; 84156

== ENCOUNTER 2021-07-12 19:53 | Emergency (ER) | payer MEDICARE, OTHER, SELFPAY ==
[2021-07-12 19:54] VITALS: BP 145/89; PULSE 83; RESP 16; TEMP 36.1; O2SAT 100; BMI 23.7
--- NOTE | 2021-07-12 20:50 | RAD_ITS ---
STUDY: X-RAY STERNUM REASON FOR EXAM: Male, 75 years old. There are no. Fall onto metal branch. Left anterior chest wall pain. TECHNIQUE: 3 view(s) of the sternum were obtained. COMPARISON: None. FINDINGS: Normal bilateral sternoclavicular articulations. Normal manubrium. Normal sternomanubrial joint. Normal sternal body and xiphoid process. There is no demonstrated fracture of the sternum. Normal visualized anterior ribs. Normal visualized lungs. The soft tissue structures are unremarkable. RAD/Sternum min 2 Views IMPRESSION: Normal x-ray examination of the sternum. Electronically Signed: Ralf Barajas DO at 21:55 EDT ,
--- NOTE | 2021-07-12 20:51 | EDS_ITS ---
HPI History of Present Illness Chief Complaint: Fall Informant: patient and spouse/S.O. Narrative Narrative: Patient had a mechanical fall today. He stepped on a board that rolled and he fell forward onto a bench. He scraped his elbow. He states he scraped the skin but the elbow does not hurt. He never hit his head. Most of the brunt was taken by landing on the bench across his chest. He has abrasions in the mid to left side and he has pain in the lower sternum and left side of his ribs. He states it hurts a little bit to breathe but he is not actually short of breath. This happened about 4 hours ago. He has no numbness tingling weakness. No neck pain no back pain no abdominal pain. He has eaten and drink. He does have a history of stents but had no chest pain or symptoms prior to fall and impact. [facility] Medical History Abnormal EKG Acute renal failure Altered mental status Ankle fracture Anxiety and depression Arthritis Atherosclerotic heart disease of [place] coronary artery without angina pectoris Chronic back pain CKD (chronic kidney disease), stage III Depression Dermatitis Diverticulitis large intestine Essential hypertension Flu vaccine need Hearing loss Heart disease History of pulmonary embolism Hyperkalemia Long-term use of high-risk medication Mixed hyperlipidemia Numbness of left foot Orthostatic hypotension Peripheral arterial occlusive disease Preoperative evaluation to rule out surgical contraindication Severe sepsis with acute organ dysfunction Syncope and collapse Type II diabetes mellitus Vision problems Home Medications trazodone 300 mg tablet 300 mg PO QHS tab 05/11/19 [History Last Taken 04/18/20] aspirin 81 mg tablet,delayed release 81 mg PO DAILY 03/16/20 [History Last Taken 04/18/20] omeprazole 20 mg capsule,delayed release 20 mg PO DAILY #90 cap 06/28/20 [Rx Last Taken Unknown] clonazepam 1 mg tablet 1 mg PO BID 10/17/20 [History Last Taken Unknown] desvenlafaxine succinate 100 mg tablet,extended release 24 hr 100 mg PO DAILY 10/17/20 [History Last Taken Unknown] duloxetine 60 mg capsule,delayed release 60 mg PO DAILY 10/17/20 [History Last Taken Unknown] glimepiride 4 mg tablet 4 mg PO BID tab 12/28/20 [History Last Taken Unknown] atorvastatin 80 mg tablet 80 mg PO QHS #90 tab 01/27/21 [Rx Last Taken Unknown] lancets #100 ea 04/12/21 [Rx Last Taken Unknown] gabapentin 100 mg capsule 100 mg PO BID #180 cap 04/14/21 [Rx Last Taken Unknown] bisacodyl 5 mg tablet,delayed release 10 mg PO DAILY PRN tab 04/17/21 [History Last Taken Unknown] oxycodone 5 mg tablet 5 mg PO BID PRN 04/17/21 [History Last Taken Unknown] blood sugar diagnostic #100 ea 04/24/21 [Rx Last Taken Unknown] metformin 500 mg tablet 500 mg PO BID #180 tab 04/25/21 [Rx Last Taken Unknown] sitagliptin 100 mg tablet 100 mg PO DAILY #30 tab 07/03/21 [Rx Last Taken Unknown] Allergy/AdvReac Type Severity Reaction Status Date / Time iodine Allergy Unknown convulsions Verified 07/12/21 19:56 codeine Allergy Itching Verified 07/12/21 19:56 Family History Father FH: congestive heart failure Mother FH: aneurysm Brother CVA (cerebral vascular accident) Brother Cancer Other Arthritis Bowel disease Diabetes High cholesterol History of partial colectomy Myocardial infarction Surgical History History of appendectomy history of back fusion History of cholecystectomy History of hernia repair History of laminectomy History of shoulder replacement Postsurgical percutaneous transluminal coronary angioplasty (PTCA) status Presence of stent in coronary artery (~12/07/15) Status post placement of implantable loop recorder Social History household members: spouse housing: house Smoking Status: Former smoker how long ago did patient quit smokin alcohol intake: never substance use type: does not use diet: diabetic caffeine: Yes Type: coffee what type of physical activity do you participate in: none frequency: daily seatbelt use: always do you feel safe at home: Yes ROS ROS ED Constitutional Constitutional ED: Denies chills or fever(s) Eyes Eyes: Denies change in vision ENT ENT ED: Denies rhinorrhea Cardiovascular Cardiovascular: Reports chest pain; Denies palpitations or racing heartbeat Respiratory/Chest Respiratory/Chest: Reports dyspnea Gastrointestinal Gastrointestinal: Reports abdominal pain; Denies nausea or vomiting Genitourinary Genitourinary ED: Denies dysuria or hematuria Musculoskeletal Musculoskeletal: Denies myalgias Integumentary Reports Abrasions and rash Neurologic Neurologic: Denies headache(s) Psychiatric Psychiatric: Denies depression Endocrine Endocrinology: Denies polyuria Hematologic/Lymphatic Hematologic/Lymphatic: Denies easy bleeding or easy bruising EXAM Physical Exam Const Vital Signs: 07/12/21 19:54 07/12/21 21:39 Temperature 97 F L Temperature Source Temporal Pulse Rate 83 Respiratory Rate 16 Respiratory Effort Normal Non-Labored Respiratory Depth Normal Respiratory Pattern Normal Blood Pressure 145/89 H Blood Pressure Mean 107 Pulse Ox 100 Oxygen Delivery Method Room Air Room Air Positive well nourished and well developed Constitutional Narrative: Patient looks comfortable. He breathes normally. He is carrying on a normal conversation. General Appearance ED: well developed and NAD HEENT atraumatic; Negative for trauma Eyes PERRL Neck full ROM General: Negative for tenderness Chest Wall Chest Narrative: Patient abrasions across the lower sternum and slightly toward the left of that. No subcu air. No swelling. No crepitance with deep breath. Resp normal respiratory effort and clear to auscultation bilaterally Auscultation: Negative for rales, rhonchi or wheezes Cardio regular rhythm Rate: regular rate GI normal to inspection, nondistended, normoactive bowel sounds and non-tender Palpation: soft Back/Spine normal to inspection and no thoracic nor lumbar tenderness Extremity Extremity Narrative: Very small skin tear lateral right elbow. But no pain with range of motion. No swelling. No tenderness peer Neuro oriented x3 Sensorium / Orientation: alert Psych mental status grossly normal Skin Skin Narrative: Abrasion as above MDM MDM MDM Narrative Medical decision making narrative: X-rays of ribs sternum and chest do not show any acute process. Patient was to go home. He states he is not hurting that bad. He will just take Tylenol. We discussed reasons to return. I also explained that not all rib x-rays will find all rib fractures and if he is having any difficulties he should return. Radiography Diagnostic Testing: Clinical Impression(s) from Imaging Studies Sternum X-Ray 07/12/21 20:50 IMPRESSION: Normal x-ray examination of the sternum. Electronically Signed: Ralf Barajas DO at 21:55 EDT Reading Location ID and State: [address] [place] [place] [address] Tel [phone], Service support , Ribs w/Chest X-Ray 07/12/21 21:15 IMPRESSION: RIBS: Normal x-ray examination of the ribs. CHEST: No acute cardiopulmonary disease. Electronically Signed: Ralf Barajas DO at 21:55 EDT Reading Location ID and State: [address] [place] [place] [address] Tel [phone], Service support , Discharge Plan Triage Chief Complaint: Fall ED Provider: Jesus Ragsdale Dx/Rx/DC Orders Clinical Impression: Fall from slip, trip, or stumble, Chest wall contusion Prescriptions: No Action trazodone 300 mg tablet 300 mg PO QHS RF: 0 desvenlafaxine succinate [Pristiq] 100 mg tablet extended release 24 hr 100 mg PO DAILY RF: 0 duloxetine 60 mg capsule,delayed release(DR/EC) 60 mg PO DAILY RF: 0 clonazepam 1 mg tablet 1 mg PO BID RF: 0 aspirin [Adult Low Dose Aspirin] 81 mg tablet,delayed release (DR/EC) 81 mg PO DAILY RF: 0 glimepiride 4 mg tablet 4 mg PO BID RF: 0 oxycodone 5 mg tablet 5 mg PO BID PRNRF: 0 bisacodyl 5 mg tablet,delayed release (DR/EC) 10 mg PO DAILY PRNRF: 0 sitagliptin 100 mg tablet 100 mg PO DAILY Qty: 30 RF: 1 omeprazole 20 mg capsule,delayed release(DR/EC) 20 mg PO DAILY Qty: 90 RF: 3 atorvastatin 80 mg tablet 80 mg PO QHS Qty: 90 RF: 3 (DME) lancets Misc See Rx Instructions .ROUTE .MEDSUPPLY Qty: 100 RF: 3 gabapentin 100 mg capsule 100 mg PO BID Qty: 180 RF: 1 (DME) OneTouch Ultra Test Strip See Rx Instructions .ROUTE .MEDSUPPLY Qty: 100 RF: 3 metformin 500 mg tablet 500 mg PO BID Qty: 180 RF: 3 Primary Care Provider: Svetlana Casas Referrals: Svetlana Casas MD [Primary Care Provider] - 3-5 Days if not improving Disposition Disposition: Home, Self Care
--- NOTE | 2021-07-12 21:15 | RAD_ITS ---
STUDY: X-RAY - UNILATERAL RIBS ( LEFT ) WITH CHEST REASON FOR EXAM: Male, 75 years old. Trip and fall into a metal bench. Left anterior rib pain. TECHNIQUE - RIBS: 4 view(s) of the ribs. TECHNIQUE - CHEST: Single PA view of the chest. COMPARISON: Acute abdominal series with chest, 02/07/2017. FINDINGS - RIBS: Normal visualized ribs without a demonstrated fracture. FINDINGS - CHEST: Limited inspiratory effort without acute infiltrate or mass. There is no demonstrated pleural abnormality. Normal size heart. Normal mediastinum and hernandez. Normal visualized pulmonary arteries. Normal visualized aortic arch and descending thoracic aorta. There are diffuse degenerative changes of the visualized thoracic spine. There is a right shoulder replacement since prior examination. There is no demonstrated abnormality of the visualized soft tissue structures of the upper abdomen. RAD/Ribs Uni Min 3V w/PA Chest IMPRESSION: RIBS: Normal x-ray examination of the ribs. CHEST: No acute cardiopulmonary disease. Electronically Signed: Ralf Barajas DO at 21:55 EDT ,
[2021-07-12 23:29] VITALS: BP 136/68; PULSE 65; RESP 17; O2SAT 95
--- NOTE | 2021-07-13 12:10 | CASEMGMT ---
YOSEPH ALVA ED follow-up: Date of ED visit: 07/12/2021 Presenting ED complaint: fall RN NIDA placed call to patient's telephone number listed on demographics with no answer. Voice message left with call back information requesting return call if any questions, needs or concerns. YOSEPH Tubbs CM
== END 2021-07-12 23:31 | disposition home or self-care (01) ==
PROVIDERS: Emergency Provider Emergency Medicine; PCP Internal Medicine; Visit Provider Emergency Medicine
DX: S20.20XA Contusion of thorax, unspecified, initial encounter (principal); I25.10 Atherosclerotic heart disease of native coronary artery without angina pectoris; Z95.5 Presence of coronary angioplasty implant and graft; Z87.891 Personal history of nicotine dependence; W19.XXXA Unspecified fall, initial encounter
CPT/HCPCS: 71101; 71120; 99282

== ENCOUNTER 2021-10-27 13:50 | Emergency (ER) | payer MEDICARE, OTHER, SELFPAY ==
[2021-10-27 13:51] VITALS: BP 173/87; PULSE 62; RESP 18; TEMP 36.6; O2SAT 100; BMI 23.4
[2021-10-27 13:54] VITALS: BP 173/87; PULSE 62; RESP 18; TEMP 36.6; O2SAT 100
[2021-10-27 14:53] LABS: Carboxyhemoglobin Frac (CO) 3.4 % (0.0-1.5)
[2021-10-27 16:22] VITALS: BP 187/90; PULSE 55; RESP 18; TEMP 36.7; O2SAT 100
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
== END 2021-10-27 16:55 | disposition home or self-care (01) ==
PROVIDERS: Emergency Provider Emergency Medicine; PCP Internal Medicine; Visit Provider Emergency Medicine
DX: T58.94XA Toxic effect of carbon monoxide from unspecified source, undetermined, initial encounter (principal); I25.10 Atherosclerotic heart disease of native coronary artery without angina pectoris; Z87.891 Personal history of nicotine dependence
CPT/HCPCS: 36415; 82375; 99284

== ENCOUNTER → 2022-02-09 | Outpatient (CLI) | payer MEDICARE, OTHER, SELFPAY ==
[2022-02-09 12:43] LABS: Absolute Lymphocyte Count 1.53 X10^3/uL (0.83-4.51); Absolute Neutrophil Count 4.6 X10^3/uL (2.0-7.7); Basophil# 0.05 X10^3/uL; Basophil% 0.7 % (0-1); Eosinophil# 0.15 X10^3/uL; Eosinophils% 2.2 % (0-5); Hematocrit 37.3 % (40-54); Hemoglobin 11.6 g/dL (13.0-16.5); Lymphocyte # 1.53 X10^3/ul (0.83-4.51); Lymphocyte % 22.6 % (19-41); Mean Corp Hgb Conc 31.1 g/dL (32-36); Mean Corpuscular Volume 93.3 fL (80-94); Mean Platelet Vol. 10.7 fl (6.2-12.0); Monocyte# 0.47 X10^3/uL; Monocyte% 6.9 % (0-10); NRBC Flagged by Analyzer 0 % (0-5); Neutrophil # 4.55 X10^3/uL (2.7-7.7); Neutrophil % 67.2 % (47-70); Platelet Count 210 K/mm3 (150-450); RBC Distribution Width CV 14.2 % (11.6-14.6); RBC Distribution Width SD 48.3 fl (35.1-43.9); White Blood Count 6.8 K/mm3 (4.4-11.0)
[2022-02-09 13:03] LABS: Anion Gap 7 (5-15); BUN 25 mg/dL (7-18); Calcium,Total 9.8 mg/dL (8.5-10.1); Chloride 106 mmol/L (98-107); Creatinine, Serum 1.47 mg/dL (0.70-1.30); EST Glomerular Filtration Rate 50 mL/min (>60); Est Glom Filt Rate - Afr Amer 60 mL/min (>60); Glucose 179 mg/dL (74-106); Potassium 4.7 mmol/L (3.5-5.1); Sodium Level 140 mmol/L (136-145)
== END | disposition home or self-care (01) ==
LOC: BIMLAB 11:07
PROVIDERS: PCP Internal Medicine; Referring Provider Internal Medicine; Visit Provider Internal Medicine
DX: E11.22 Type 2 diabetes mellitus with diabetic chronic kidney disease (principal); N18.30 Chronic kidney disease, stage 3 unspecified
CPT/HCPCS: 36415; 80048; 85025

== ENCOUNTER 2022-03-24 18:31 | Inpatient (IN) | payer MEDICARE, OTHER, SELFPAY ==
[2022-03-24 18:35] VITALS: BP 119/97; PULSE 97; RESP 17; TEMP 37.1; O2SAT 93; BMI 23.7
[2022-03-24 20:57] VITALS: BP 145/83; PULSE 82; RESP 15; O2SAT 98
--- NOTE | 2022-03-24 22:05 | EKG12_ITS ---
Test Reason : sob Blood Pressure : / mmHG Vent. Rate : 075 BPM Atrial Rate : 075 BPM P-R Int : 142 ms QRS Dur : 072 ms QT Int : 388 ms P-R-T Axes : 027 035 056 degrees QTc Int : 433 ms Normal sinus rhythm Normal ECG Confirmed by MARJAN HAWK, FLY ([id number]), avid editor RENATE MONTOYA ([id number]) on 03/26/2022 12:02:08 PM Referred By: Confirmed By:FLY PHILLIP MD
--- NOTE | 2022-03-24 22:05 | ED.RN ---
PT NOTED TO BE 79% ON ROOM AIR. PLACED ON 2L O2 VIA NC. O2 SATS IMPROVE TO 96%
--- NOTE | 2022-03-24 22:07 | EX.ED.DYSGE1 ---
HPI History of Present Illness Chief Complaint: Shortness of Breath Informant: patient Onset/Context/Timing Onset: Days Context: Gradual Onset Narrative Narrative: Patient presents with multiple complaints. He reports a headache for the past 2 or 3 weeks that worsened 4 days ago. About 4 days ago he also developed subjective fever, cough, shortness of breath, body aches. His is ill with similar. When I enter the room the patient's O2 sat is 79% on room air with a good waveform. I placed him on 2 L nasal cannula. He does report a history of pulmonary embolism but does not remember the details surrounding this. He is no longer on anticoagulants. He denies chest pain. He had vomiting a couple days ago but none since. No diarrhea. No difficulty urinating. [facility] Medical History Abnormal EKG Acute renal failure Altered mental status Ankle fracture Anxiety and depression Arthritis Atherosclerotic heart disease of [place] coronary artery without angina pectoris Chronic back pain CKD (chronic kidney disease), stage III Depression Dermatitis Diverticulitis large intestine Essential hypertension Flu vaccine need Hearing loss Heart disease History of pulmonary embolism Hyperkalemia Long-term use of high-risk medication Mixed hyperlipidemia Numbness of left foot Orthostatic hypotension Peripheral arterial occlusive disease Preoperative evaluation to rule out surgical contraindication Severe sepsis with acute organ dysfunction Syncope and collapse Type II diabetes mellitus Urticaria Vision problems Home Medications aspirin 81 mg tablet,delayed release (Adult Low Dose Aspirin) 81 mg PO DAILY 03/16/20 [History Last Taken 04/18/20] clonazepam 1 mg tablet 1 mg PO BID 10/17/20 [History Last Taken Unknown] bisacodyl 5 mg tablet,delayed release 10 mg PO DAILY PRN 04/17/21 [History Last Taken Unknown] lancets #100 ea 08/14/21 [Rx Last Taken Unknown] omeprazole 20 mg capsule,delayed release 20 mg PO DAILY #90 caps 08/16/21 [Rx Last Taken Unknown] metformin 500 mg tablet 500 mg PO BID #180 tabs 09/27/21 [Rx Last Taken Unknown] atorvastatin 80 mg tablet 80 mg PO QHS #90 tabs 02/09/22 [Rx Last Taken Unknown] blood sugar diagnostic (Contour Next Test Strips) #100 ea 02/09/22 [Rx Last Taken Unknown] blood sugar diagnostic (Contour Next Test Strips) #100 ea 02/09/22 [Rx Last Taken Unknown] duloxetine 60 mg capsule,delayed release 60 mg PO BID 02/09/22 [History Last Taken Unknown] gabapentin 100 mg capsule 100 mg PO BID #180 caps 02/09/22 [Rx Last Taken Unknown] trazodone 300 mg tablet See Rx Instructions PO QHS 02/09/22 [History Last Taken Unknown] glimepiride 4 mg tablet 4 mg PO BID 3 months #180 tabs 03/23/22 [Rx Last Taken Unknown] Allergy/AdvReac Type Severity Reaction Status Date / Time iodine Allergy Unknown convulsions Verified 03/24/22 18:31 codeine Allergy Itching Verified 03/24/22 18:31 Family History Father FH: congestive heart failure Mother FH: aneurysm Brother CVA (cerebral vascular accident) Brother Cancer Other Arthritis Bowel disease Diabetes High cholesterol History of partial colectomy Myocardial infarction Surgical History History of appendectomy history of back fusion History of cholecystectomy History of hernia repair History of laminectomy History of shoulder replacement Postsurgical percutaneous transluminal coronary angioplasty (PTCA) status Presence of stent in coronary artery (~12/07/15) Status post placement of implantable loop recorder Social History household members: spouse housing: house Smoking Status: Former smoker how long ago did patient quit smokin alcohol intake: never substance use type: does not use diet: diabetic caffeine: Yes Type: coffee what type of physical activity do you participate in: none frequency: daily seatbelt use: always do you feel safe at home: Yes ROS ROS ED Constitutional Constitutional ED: Reports chills, fever(s) and subjective Eyes Eyes: Denies change in vision or discharge from eye(s) ENT ENT ED: Denies discharge from eye(s), rhinorrhea or sore throat Cardiovascular Cardiovascular: Denies chest pain or palpitations Respiratory/Chest Respiratory/Chest: Reports cough and dyspnea Gastrointestinal Gastrointestinal: Reports nausea and vomiting; Denies abdominal pain or diarrhea Genitourinary Genitourinary ED: Denies difficulty urinating or dysuria Musculoskeletal Musculoskeletal: Reports myalgias and neck pain; Denies back pain or extremity pain Integumentary Denies Abrasions or rash Neurologic Neurologic: Reports headache(s); Denies weakness Psychiatric Psychiatric: Denies anxiety or depression Allergic/Immunologic Allergic/Immunologic ED: Denies lip swelling or urticaria EXAM Physical Exam Const Vital Signs: 03/24/22 18:35 03/24/22 20:57 03/24/22 20:57 Temperature 98.8 F Temperature Source Temporal Pulse Rate 97 82 Respiratory Rate 17 15 Respiratory Effort Normal Respiratory Depth Normal Respiratory Pattern Normal Blood Pressure 119/97 H 145/83 H Blood Pressure Mean 104 103 Pulse Ox 93 98 Oxygen Delivery Method Room Air Room Air Room Air Oxygen Flow Rate (L/min) 03/24/22 22:12 03/25/22 00:00 03/25/22 00:00 Temperature 98.5 F Temperature Source Temporal Pulse Rate 81 73 73 Respiratory Rate 24 H 14 14 Respiratory Effort Respiratory Depth Respiratory Pattern Blood Pressure 134/92 H 155/84 H 155/84 H Blood Pressure Mean 106 107 107 Pulse Ox 91 97 97 Oxygen Delivery Method Nasal Cannula Nasal Cannula Nasal Cannula Oxygen Flow Rate (L/min) 2 2 2 03/25/22 01:00 03/25/22 02:00 03/25/22 02:00 Temperature 99 F 98.8 F Temperature Source Temporal Temporal Pulse Rate 74 72 72 Respiratory Rate 18 18 18 Respiratory Effort Respiratory Depth Respiratory Pattern Blood Pressure 145/92 H 143/84 H 143/84 H Blood Pressure Mean 109 103 103 Pulse Ox 96 94 94 Oxygen Delivery Method Nasal Cannula Nasal Cannula Nasal Cannula Oxygen Flow Rate (L/min) 2 2 2 Positive well nourished and well developed General Appearance ED: well developed HEENT Reports normocephalic and head/scalp atraumatic Eyes PERRL and EOMs intact bilaterally Neck supple Chest Wall inspection of chest normal and palpation of chest normal Resp normal respiratory effort and clear to auscultation bilaterally Cardio regular rate and regular rhythm GI normal to inspection, nondistended, normoactive bowel sounds Palpation: soft Extremity normal to inspection Neuro oriented x3 and no sensory deficits noted Sensorium / Orientation: alert Motor Exam: strength 5/5 throughout Psych mental status grossly normal Skin no rashes or lesions noted MDM MDM MDM Narrative Medical decision making narrative: Lab work, EKG, chest x-ray obtained. Swabs for COVID and influenza obtained. Lab Data Attestation: I reviewed the patient's lab results. Labs: Laboratory Results - last 24 hr 03/24/22 03/24/22 03/24/22 22:30 22:30 22:30 WBC 6.3 RBC 4.04 L Hgb 11.3 L Hct 36.2 L MCV 89.6 MCH 28.0 MCHC 31.2 L RDW Std Deviation 46.6 H RDW Coeff of Sylvester 14.4 Plt Count 161 MPV 10.6 Immature Gran % (Auto) 0.500 Neut % (Auto) 66.0 Lymph % (Auto) 18.9 L Fisher % (Auto) 13.8 H Eos % (Auto) 0.2 Baso % (Auto) 0.6 Absolute Neuts (auto) 4.2 Absolute Lymphs (auto) 1.19 Nucleated RBC % 0 D-Dimer Quant (PE/DVT) 0.84 H* Sodium 140 Potassium 4.2 Chloride 105 Carbon Dioxide 29.0 Anion Gap 6 BUN 27 H Creatinine 1.53 H Estim Creat Clear Calc 44.43 Est GFR (MDRD) Af Amer 57 L Est GFR (MDRD) Non-Af 47 L BUN/Creatinine Ratio 17.6 Glucose 115 H Calcium 8.9 Troponin I High Sens 28 Radiography Chest X-Ray - ED: 1 View, Read by ED Physician and Chronic Changes Diagnostic Testing: Clinical Impression(s) from Imaging Studies Chest X-Ray 03/24/22 22:35 IMPRESSION: Retrocardiac opacity, concerning for infection. Electronically Signed: Jaswinder Polk MD at 22:59 EST , Chest CTA 03/24/22 23:13 IMPRESSION: 1. No pulmonary embolism to the subsegmental level. 2. Mild bilateral bronchial wall thickening, suggestive of small airways disease or bronchitis. 3. Nonspecific mildly enlarged intrathoracic lymphadenopathy. 4. Heterogeneous pancreatic tail lesion measuring 18 mm, should be further characterized with a nonemergent MRI abdomen with contrast. Electronically Signed: Jaswinder Polk MD at 2:18 EST , EKG Initial EKG: Attestation: I personally reviewed and interpreted this EKG as follows: Interpretation: Sinus Rhythm (Sinus at 75 with no acute ischemia.) Treatment and Re-Evaluation Narrative: CBC and chemistry studies unremarkable. Troponin normal at 28. D-dimer elevated at 0.84. Portable chest x-ray per my interpretation reveals chronic changes. Radiology has concern for possible retrocardiac opacity. EKG is sinus with no acute ischemia. COVID test is positive. Influenza test is negative. Patient was premedicated and CTA of the chest was performed. There is no obvious pulmonary embolism. No infiltrate. Patient's O2 sats are in the mid 90s on 2 to 3 L nasal cannula. I will speak with hospitalist regarding admission. Discharge Plan Triage Chief Complaint: Shortness of Breath ED Provider: Lolis Curiel Dx/Rx/DC Orders Clinical Impression: COVID-19, Hypoxia Prescriptions: No Action trazodone 300 mg tablet See Rx Instructions PO QHS Rx Instructions: 50 MG orally at bedtime; clonazepam 1 mg tablet 1 mg PO BID aspirin [Adult Low Dose Aspirin] 81 mg tablet,delayed release (DR/EC) 81 mg PO DAILY bisacodyl 5 mg tablet,delayed release (DR/EC) 10 mg PO DAILY PRN (DME) Contour Next Test Strips Strip See Rx Instructions .Route Qty: 100 3RF Rx Instructions: Check BID atorvastatin 80 mg tablet 80 mg PO QHS Qty: 90 3RF duloxetine 60 mg capsule,delayed release(DR/EC) 60 mg PO BID (DME) [place] [facility] [place] Instructions .ROUTE .MEDSUPPLY Qty: 100 3RF Rx Instructions: As directed 3 times a day omeprazole 20 mg capsule,delayed release(DR/EC) 20 mg PO DAILY Qty: 90 3RF metformin 500 mg tablet 500 mg PO BID Qty: 180 3RF gabapentin 100 mg capsule 100 mg PO BID Qty: 180 1RF (DME) Contour Next Test Strips Strip See Rx Instructions .Route Qty: 100 3RF Rx Instructions: 2 TIMES DAILY glimepiride 4 mg tablet 4 mg PO BID 90 Days Qty: 180 3RF Primary Care Provider: Svetlana Casas Referrals: Oleghe,Efewongbe, MD [Primary Care Provider] - Disposition Disposition: Acute Care Hospital [facility]
[2022-03-24 22:12] VITALS: BP 134/92; PULSE 81; RESP 24; O2SAT 91
--- NOTE | 2022-03-24 22:35 | RAD_ITS ---
INDICATION: sob EXAMINATION/TECHNIQUE: X-RAY - XR Chest 1 View COMPARISON: 07/12/2021 FINDINGS: LINES/DEVICES: None. LUNGS: Retrocardiac opacity. No pleural effusion or pneumothorax. MEDIASTINUM AND CARDIOVASCULAR STRUCTURES: Cardiac silhouette not enlarged. Central airways and mediastinal contour are unremarkable. BONES AND SOFT TISSUES: Right shoulder arthroplasty, similar compared to the prior. No acute osseous abnormality.. RAD/Chest 1 View (Portable) IMPRESSION: Retrocardiac opacity, concerning for infection. Electronically Signed: Jaswinder Polk MD at 22:59 EST ,
[2022-03-24 22:48] LABS: Absolute Lymphocyte Count 1.19 X10^3/uL (0.83-4.51); Absolute Neutrophil Count 4.2 X10^3/uL (2.0-7.7); Basophil# 0.04 X10^3/uL; Basophil% 0.6 % (0-1); Eosinophil# 0.01 X10^3/uL; Eosinophils% 0.2 % (0-5); Hematocrit 36.2 % (40-54); Hemoglobin 11.3 g/dL (13.0-16.5); Lymphocyte # 1.19 X10^3/ul (0.83-4.51); Lymphocyte % 18.9 % (19-41); Mean Corp Hgb Conc 31.2 g/dL (32-36); Mean Corpuscular Volume 89.6 fL (80-94); Mean Platelet Vol. 10.6 fl (6.2-12.0); Monocyte# 0.87 X10^3/uL; Monocyte% 13.8 % (0-10); NRBC Flagged by Analyzer 0 % (0-5); Neutrophil # 4.15 X10^3/uL (2.7-7.7); Platelet Count 161 K/mm3 (150-450); RBC Distribution Width CV 14.4 % (11.6-14.6); RBC Distribution Width SD 46.6 fl (35.1-43.9); Red Blood Count 4.04 M/mm3 (4.6-6.2); White Blood Count 6.3 K/mm3 (4.4-11.0)
[2022-03-24 23:02] LABS: D-Dimer Quantitative (DVT/PE) 0.84 FEU/ug/m (0.27-0.49)
[2022-03-24] MEDS: Ketorolac 15 MG/ML Vial IV (23:04)
[2022-03-24 23:09] LABS: Anion Gap 6 (5-15); BUN 27 mg/dL (7-18); BUN/Creat Ratio 17.6 RATIO (10-20); Calcium,Total 8.9 mg/dL (8.5-10.1); Chloride 105 mmol/L (98-107); Creatinine, Serum 1.53 mg/dL (0.70-1.30); EST Glomerular Filtration Rate 47 mL/min (>60); Est Glom Filt Rate - Afr Amer 57 mL/min (>60); Estimated Creatinine Clearance 44.43 ml/min; Glucose 115 mg/dL (74-106); Potassium 4.2 mmol/L (3.5-5.1); Sodium Level 140 mmol/L (136-145); Troponin-I HS 28 pg/mL (3.0-78.0)
--- NOTE | 2022-03-24 23:13 | CT_ITS ---
STUDY: CTA CHEST REASON FOR EXAM: Male, 76 years old. pulmonary embolism RADIATION DOSAGE (If Supplied By Facility): CTDIvol = ( 16.92 ) mGy, DLP = ( 428.92 ) mGycm TECHNIQUE: The examination was performed with the intravenous administration of IV 100mL Isovue-370. Post-processing of the angiographic images was performed, with multiplanar reformation and 3D reconstruction. Individualized dose optimization techniques were used for this CT. COMPARISON: CT chest 09/30/2016. FINDINGS: LUNGS: Mild bilateral bronchial wall thickening. Irregular linear opacity in the right lower lobe, likely subsegmental atelectasis or pleural/parenchymal scarring. Calcified granuloma in the left upper lobe, similar compared to the prior. AORTA/GREAT VESSELS: No aneurysm.. PULMONARY VESSELS: Normal. PLEURA: Normal. MEDIASTINUM: Coronary artery calcifications. Mildly enlarged hilar and mediastinal lymphadenopathy. Trace pericardial fluid. UPPER ABDOMEN: Heterogeneous pancreatic tail lesion measuring 18 x 14 x 13 mm. Cystic changes in the left kidney. Gallbladder not visualized, likely surgically absent. Scattered colonic diverticulosis without discrete evidence of acute diverticulitis. BONES/SOFT TISSUES: Status post right shoulder arthroplasty with streak artifact, limiting evaluation. No acute osseous abnormality.. OTHER: None. CT/CTA Chest W/WO Contrast IMPRESSION: 1. No pulmonary embolism to the subsegmental level. 2. Mild bilateral bronchial wall thickening, suggestive of small airways disease or bronchitis. 3. Nonspecific mildly enlarged intrathoracic lymphadenopathy. 4. Heterogeneous pancreatic tail lesion measuring 18 mm, should be further characterized with a nonemergent MRI abdomen with contrast. Electronically Signed: Jaswinder Polk MD at 2:18 EST ,
[2022-03-25] VITALS (14 sets, daily range): BP systolic 143–169; BP diastolic 80–98; PULSE 70–95; RESP 14–18; TEMP 36.5–37.2; O2SAT 94–98; BMI 24.0
[2022-03-25] MEDS: DiphenhydrAMINE 50 MG/ML Syringe 25 MG IV (00:15)
[2022-03-25] MEDS: MethylPREDNISolone 125 MG/2 ML Vial 60 MG IV (00:15)
--- NOTE | 2022-03-25 03:19 | PCM.HP.STD ---
HPI - General General Date of Admission: 03/25/22 Date of Service: 03/25/22 Chief Complaint: covid-like symptoms HPI Narrative SANCHEZ LIM, is a 76 M with a significant history of diabetes mellitus; hypertension and depression who presents to the emergency department with 4-day history of progressively worsening COVID-like symptoms. He describes COVID-like symptoms as malaise, anorexia, cough, headache, confusion and shortness of breath. His symptoms started about 4 days prior to presentation. His symptoms are progressively worsening. Patient has received 1 dose of COVID-19 virus so far. Patient was at the emergency department with his who also have COVID-19. Emergency room doctor reports that on presentation patient oxygen saturation was 79% with good waveform and patient required supplemental oxygenation. [facility] Medical History Abnormal EKG Acute renal failure Altered mental status Ankle fracture Anxiety and depression Arthritis Atherosclerotic heart disease of [place] coronary artery without angina pectoris Chronic back pain CKD (chronic kidney disease), stage III Depression Dermatitis Diverticulitis large intestine Essential hypertension Flu vaccine need Hearing loss Heart disease History of pulmonary embolism Hyperkalemia Long-term use of high-risk medication Mixed hyperlipidemia Numbness of left foot Orthostatic hypotension Peripheral arterial occlusive disease Preoperative evaluation to rule out surgical contraindication Severe sepsis with acute organ dysfunction Syncope and collapse Type II diabetes mellitus Urticaria Vision problems Home Medications aspirin 81 mg tablet,delayed release (Adult Low Dose Aspirin) 81 mg PO DAILY heart health 03/16/20 [History Last Taken 04/18/20] bisacodyl 5 mg tablet,delayed release 10 mg PO DAILY PRN Constipation 04/17/21 [History Last Taken Unknown] lancets #100 ea 08/14/21 [Rx Last Taken Unknown] duloxetine 60 mg capsule,delayed release 60 mg PO BID mental health 02/09/22 [History Last Taken Unknown] atorvastatin 80 mg tablet 80 mg PO QHS cholesterol lowering 03/25/22 [History Last Taken Unknown] blood sugar diagnostic (Contour Next Test Strips) 03/25/22 [History Last Taken Unknown] blood sugar diagnostic (Contour Next Test Strips) 03/25/22 [History Last Taken Unknown] gabapentin 100 mg capsule 100 mg PO BID nerve pain 03/25/22 [History Last Taken Unknown] glimepiride 4 mg tablet 4 mg PO BID blood sugar 03/25/22 [History Last Taken Unknown] metformin 500 mg tablet 500 mg PO BID blood sugar 03/25/22 [History Last Taken Unknown] omeprazole 20 mg capsule,delayed release 20 mg PO DAILY acid reflux 03/25/22 [History Last Taken Unknown] trazodone 50 mg tablet 50 mg PO QHS PRN Sleep 03/25/22 [History Last Taken Unknown] Allergy/AdvReac Type Severity Reaction Status Date / Time iodine Allergy Unknown convulsions Verified 03/24/22 18:31 codeine Allergy Itching Verified 03/24/22 18:31 Family History Father FH: congestive heart failure Mother FH: aneurysm Brother CVA (cerebral vascular accident) Brother Cancer Other Arthritis Bowel disease Diabetes High cholesterol History of partial colectomy Myocardial infarction Surgical History History of appendectomy history of back fusion History of cholecystectomy History of hernia repair History of laminectomy History of shoulder replacement Postsurgical percutaneous transluminal coronary angioplasty (PTCA) status Presence of stent in coronary artery (~12/07/15) Status post placement of implantable loop recorder Social History household members: spouse housing: house Smoking Status: Former smoker how long ago did patient quit smokin alcohol intake: never substance use type: does not use diet: diabetic caffeine: Yes Type: coffee what type of physical activity do you participate in: none frequency: daily seatbelt use: always do you feel safe at home: Yes ROS ROS Narrative Pertinent positives and pertinent negatives as noted in HPI. All other systems were reviewed and are negative Vital Signs Vital Signs Vital Signs: 03/24/22 18:35 03/24/22 20:57 03/24/22 20:57 Temperature 98.8 F Temperature Source Temporal Pulse Rate 97 82 Respiratory Rate 17 15 Respiratory Effort Normal Respiratory Depth Normal Respiratory Pattern Normal Blood Pressure 119/97 H 145/83 H Blood Pressure Mean 104 103 Pulse Ox 93 98 Oxygen Delivery Method Room Air Room Air Room Air Oxygen Flow Rate (L/min) 03/24/22 22:12 03/25/22 00:00 03/25/22 00:00 Temperature 98.5 F Temperature Source Temporal Pulse Rate 81 73 73 Respiratory Rate 24 H 14 14 Respiratory Effort Respiratory Depth Respiratory Pattern Blood Pressure 134/92 H 155/84 H 155/84 H Blood Pressure Mean 106 107 107 Pulse Ox 91 97 97 Oxygen Delivery Method Nasal Cannula Nasal Cannula Nasal Cannula Oxygen Flow Rate (L/min) 2 2 2 03/25/22 01:00 03/25/22 02:00 03/25/22 02:00 Temperature 99 F 98.8 F Temperature Source Temporal Temporal Pulse Rate 74 72 72 Respiratory Rate 18 18 18 Respiratory Effort Respiratory Depth Respiratory Pattern Blood Pressure 145/92 H 143/84 H 143/84 H Blood Pressure Mean 109 103 103 Pulse Ox 96 94 94 Oxygen Delivery Method Nasal Cannula Nasal Cannula Nasal Cannula Oxygen Flow Rate (L/min) 2 2 2 03/25/22 03:00 03/25/22 03:13 Temperature 98.9 F 98.9 F Temperature Source Temporal Oral Pulse Rate 70 95 Respiratory Rate 18 16 Respiratory Effort Respiratory Depth Respiratory Pattern Blood Pressure 162/80 H 162/82 H Blood Pressure Mean 107 108 Pulse Ox 97 97 Oxygen Delivery Method Nasal Cannula Nasal Cannula Oxygen Flow Rate (L/min) 2 2 Weight Weight: 77.111 kg Body Mass Index (BMI) 23.7 Physical Exam Narrative Physical exam: General: Well-nourished, well-developed. Head: Normocephalic, atraumatic, no tenderness Eyes: Vision is grossly intact. EOMI ENT, no trauma, moist mucous membranes, no rhinorrhea Neck: Nontender, full range of motion CVS: Regular rate and rhythm. S1-S2 present. No murmur, gallop or rub. Respiratory : Mild diffuse rales, chest wall nontender, no wheezing Abdomen: Soft, nontender, nondistended, normal bowel sounds, no masses : Deferred Back: Nontender, no CVA tenderness. Extremities: Nontender full range of motion, no trauma Skin: Normal color, no trauma, abrasions Neuro: Alert, oriented, cranial nerves II through XII grossly intact. Psychiatry: Normal mood. Normal affect. Not depressed. Not anxious. Results Lab / Micro Data Result Diagrams: 03/24/22 22:30 03/24/22 22:30 Labs: Laboratory Results - last 24 hr 03/24/22 22:30: WBC 6.3, RBC 4.04 L, Hgb 11.3 L, Hct 36.2 L, MCV 89.6, MCH 28.0, MCHC 31.2 L, RDW Std Deviation 46.6 H, RDW Coeff of Sylvester 14.4, Plt Count 161, MPV 10.6, Immature Gran % (Auto) 0.500, Neut % (Auto) 66.0, Lymph % (Auto) 18.9 L, [place] % (Auto) 13.8 H, Eos % (Auto) 0.2, Baso % (Auto) 0.6, Absolute Neuts (auto) 4.2, Absolute Lymphs (auto) 1.19, Nucleated RBC % 0 03/24/22 22:30: D-Dimer Quant (PE/DVT) 0.84 H* 03/24/22 22:30: Sodium 140, Potassium 4.2, Chloride 105, Carbon Dioxide 29.0, Anion Gap 6, BUN 27 H, Creatinine 1.53 H, Estim Creat Clear Calc 44.43, Est GFR (MDRD) Af Amer 57 L, Est GFR (MDRD) Non-Af 47 L, BUN/Creatinine Ratio 17.6, Glucose 115 H, Calcium 8.9, Troponin I High Sens 28 Micro: Microbiology 03/24/22 22:28 Nasal Secretion SARS-CoV-2 & FLU Antigen (Rapid) - Final Radiology Impression Chest X-Ray 03/24/22 22:35 IMPRESSION: Retrocardiac opacity, concerning for infection. Electronically Signed: Jaswinder Polk MD at 22:59 EST Reading Location ID and State: [facility] / [place] Tel , Service support , Chest CTA 03/24/22 23:13 IMPRESSION: 1. No pulmonary embolism to the subsegmental level. 2. Mild bilateral bronchial wall thickening, suggestive of small airways disease or bronchitis. 3. Nonspecific mildly enlarged intrathoracic lymphadenopathy. 4. Heterogeneous pancreatic tail lesion measuring 18 mm, should be further characterized with a nonemergent MRI abdomen with contrast. Electronically Signed: Jaswinder Polk MD at 2:18 EST , Assessment & Plan Assessment/Plan (1) COVID-19: (2) Hypoxia: PLAN: Plan COVID-19 pneumonia with hypoxia Continue supplemental oxygenation as necessary. Positive coronavirus test outpatient. Impression of chest x-ray by radiologist: Retrocardiac opacity, concerning for infection. Actual chest x-ray image was independently interpreted. I agree with radiologist interpretation. CBC showed normal white count Dimer was elevated at 0.84. Follow-up chest CTA showed : No PE; mild bilateral bronchial wall thickening, nonspecific mildly enlarged intrathoracic lymphadenopathy. Decadron ordered. Will check LFTs and if normal consider starting remdesivir. CKD stage IIIa Stable Trend CMP. Chronic anemia Stable Trend CBC. Pancreatic lesion Found on CTA. When patient acute symptoms resolved consider MRI of abdomen with contrast per radiology recommendation. Diabetes mellitus with neuropathy Patient with mild hyperglycemia on presentation Gabapentin continued. Hold home hypoglycemic regimen. Monitor Accu-Cheks Correction scale insulin ordered. DVT Prophylaxis: Subcutaneous Lovenox ordered Charges/Coding Visit Charges Inpatient E&M: 51440 Init Hosp L3
[2022-03-25 04:30] LABS: AST(SGOT) 45 U/L (15-37); Alanine Aminotransfer ALT/SGPT 50 U/L (16-61); Albumin, Serum 3.5 g/dL (3.2-5.0); Alkaline Phosphatase 90 U/L (45-117); Bilirubin, Direct 0.06 mg/dL (0.00-0.30); Globulin 3.1 g/dL (2.2-4.2); Protein, Total 6.6 g/dL (6.4-8.2)
[2022-03-25] MEDS: Insulin Lispro 100 UNIT/ML INSULN.PEN SC ×2 (06:28→11:31)
[2022-03-25 06:51] LABS: Bedside Glucose 254 mg/dL (74-106)
[2022-03-25] MEDS: Ibuprofen 400 MG Tablet PO (08:09)
[2022-03-25] MEDS: Aspirin E.C. 81 MG Tablet PO (08:10)
[2022-03-25] MEDS: dexAMETHasone 4 MG Tablet 6 MG PO (08:10)
[2022-03-25 08:21] LABS: Magnesium 3.3 mg/dL (1.6-2.6)
[2022-03-25] MEDS: DULoxetine Hcl 60 MG Capsule PO (10:44)
[2022-03-25] MEDS: Pantoprazole Sodium 20 MG Tablet PO (10:44)
[2022-03-25] MEDS: Enoxaparin 30 MG/0.3 ML Syringe SC (10:44)
[2022-03-25] MEDS: Gabapentin 100 MG Capsule PO (10:48)
--- NOTE | 2022-03-25 11:13 | DCINST_ITS ---
Discharge Instructions Diet Discharge Diet: No restrictions Activity Discharge Activity: Return to Normal Activity Follow Up Care Test Results: Test results from this visit will be discussed in further detail at your follow- up appointment, if applicable. Discharge Plan Admission Admit Date/Time: 03/25/22 02:59 Primary Reason for Your Visit: Acute COVID-19 pneumonia/Hypoxia Attending Provider: Roseline Torres Primary Care Provider: Svetlana Casas Consulting Providers: Jayce Barclay Additional Instructions / Restrictions: Complete your dexamethasone Continue to use an incentive spirometer You should quarantine for total of 10 days (last day 04/03/22) Follow-up with your primary care doctor after your quarantine Discharge Orders/Prescriptions Prescriptions: New dexamethasone 4 mg Tablet 6 mg PO DAILYCM 9 Days Qty: 14 0RF potassium, sodium phosphates 280-160-250 mg Powder In Packet 1 packet PO 4X/DAY 1 Days Qty: 4 0RF aspirin 81 mg capsule 81 mg PO DAILY 30 Days Qty: 30 0RF Continued aspirin [Adult Low Dose Aspirin] 81 mg tablet,delayed release (DR/EC) 81 mg PO DAILY bisacodyl 5 mg tablet,delayed release (DR/EC) 10 mg PO DAILY PRN (Reason: Constipation) duloxetine 60 mg capsule,delayed release(DR/EC) 60 mg PO BID trazodone 50 mg Tablet 50 mg PO QHS PRN (Reason: Sleep) metformin 500 mg tablet 500 mg PO BID atorvastatin 80 mg tablet 80 mg PO QHS (DME) Contour Next Test Strips Strip See Rx Instructions .ROUTE Rx Instructions: Check BID (DME) Contour Next Test Strips Strip See Rx Instructions .Route Rx Instructions: 2 TIMES DAILY glimepiride 4 mg tablet 4 mg PO BID omeprazole 20 mg capsule,delayed release(DR/EC) 20 mg PO DAILY gabapentin 100 mg capsule 100 mg PO BID (DME) [facility] [place] [facility] [place] .ROUTE .MEDSUPPLY Qty: 100 3RF Rx Instructions: As directed 3 times a day Referrals / Follow Up: Svetlana Casas MD [Primary Care Provider] - In 1 Week Disposition Disposition (needs filled in before D/C Order can be placed): Home, Self Care
--- NOTE | 2022-03-25 11:22 | DS.PCM_ITS ---
Providers Date of Admission: 03/25/22 Date of Discharge: 03/25/22 Primary Care Physician: Dr. Svetlana Casas MD Reason For Visit: COVID-19, PNEUMONIA Diagnosis Discharge Diagnosis (1) COVID-19: Status: Acute Code(s): U07.1 - COVID-19 (2) Hypoxia: Status: Acute Code(s): R09.02 - Hypoxemia Medications at Discharge Home Medications aspirin 81 mg tablet,delayed release (Adult Low Dose Aspirin) 81 mg PO DAILY heart health 03/16/20 bisacodyl 5 mg tablet,delayed release 10 mg PO DAILY PRN Constipation 04/17/21 lancets #100 ea 08/14/21 duloxetine 60 mg capsule,delayed release 60 mg PO BID mental health 02/09/22 aspirin 81 mg capsule 81 mg PO DAILY 30 days #30 caps 03/25/22 atorvastatin 80 mg tablet 80 mg PO QHS cholesterol lowering 03/25/22 blood sugar diagnostic (Contour Next Test Strips) 03/25/22 blood sugar diagnostic (Contour Next Test Strips) 03/25/22 dexamethasone 4 mg tablet 6 mg PO DAILYCM 9 days #14 tabs 03/25/22 gabapentin 100 mg capsule 100 mg PO BID nerve pain 03/25/22 glimepiride 4 mg tablet 4 mg PO BID blood sugar 03/25/22 metformin 500 mg tablet 500 mg PO BID blood sugar 03/25/22 omeprazole 20 mg capsule,delayed release 20 mg PO DAILY acid reflux 03/25/22 potassium, sodium phosphates 280 mg-160 mg-250 mg oral powder packet 1 packet PO 4X/DAY 1 day #4 ea 03/25/22 trazodone 50 mg tablet 50 mg PO QHS PRN Sleep 03/25/22 Hospital Course Operations None Procedures None Summary of Care Provided Minutes Spent on Discharge: 35 Hospital Course: 76-year-old male with past medical history of type II DM, hypertension, depression who presented with a 4-day history of malaise, anorexia, headache, confusion. Patient was found to be positive for acute COVID-19. He however was saturating 79% on room air requiring 2 to 4 L of oxygen. He was admitted to the [facility] floor, started on IV dexamethasone, continued on oxygen and breathing treatment. Patient was off oxygen the next day. He was evaluated for oxygen and did not require oxygen on ambulation. Patient was discharged home to follow-up with his primary care doctor. He will complete 10 days of dexamethasone. Patient did appear to improve much faster than anticipated and did not have an acute need to be in the hospital. Physical Exam Narrative Physical exam: General: Alert, Oriented x3, Cooperative, appears frail HEENT: Atraumatic Oral: Moist Mucosa Neck: Supple Lungs: Diminished to auscultation Cardiovascular: HS I+II, regular, no murmurs Abdomen: Bowel Sounds Present, Soft, Non Tender Extremities: No edema Skin: No rashes, No breakdown Neurological: Grossly intact Psych/Mental Status: Appropriate Weight / BMI Weight Weight: 78.1 kg Body Mass Index (BMI) 24.0 ABG / Lab / Microbiology Data Result Diagrams: 03/24/22 22:30 03/24/22 22:30 Laboratory: Laboratory Results - last 24 hr 03/24/22 22:30: WBC 6.3, RBC 4.04 L, Hgb 11.3 L, Hct 36.2 L, MCV 89.6, MCH 28.0, MCHC 31.2 L, RDW Std Deviation 46.6 H, RDW Coeff of Sylvester 14.4, Plt Count 161, MPV 10.6, Immature Gran % (Auto) 0.500, Neut % (Auto) 66.0, Lymph % (Auto) 18.9 L, [place] % (Auto) 13.8 H, Eos % (Auto) 0.2, Baso % (Auto) 0.6, Absolute Neuts (auto) 4.2, Absolute Lymphs (auto) 1.19, Nucleated RBC % 0 03/24/22 22:30: D-Dimer Quant (PE/DVT) 0.84 H* 03/24/22 22:30: Sodium 140, Potassium 4.2, Chloride 105, Carbon Dioxide 29.0, Anion Gap 6, BUN 27 H, Creatinine 1.53 H, Estim Creat Clear Calc 44.43, Est GFR (MDRD) Af Amer 57 L, Est GFR (MDRD) Non-Af 47 L, BUN/Creatinine Ratio 17.6, Glucose 115 H, Calcium 8.9, Troponin I High Sens 28 03/24/22 22:30: Total Bilirubin 0.30, Direct Bilirubin 0.06, AST 45 H, ALT 50, Alkaline Phosphatase 90, Total Protein 6.6, Albumin 3.5, Globulin 3.1 03/24/22 22:30: Phosphorus 2.0 L, Magnesium 3.3 H 03/25/22 06:26: POC Glucose 254 H Microbiology: Microbiology 03/24/22 22:28 Nasal Secretion SARS-CoV-2 & FLU Antigen (Rapid) - Final Radiography Diagnostic Testing: Radiology Impression Chest X-Ray 03/24/22 22:35 IMPRESSION: Retrocardiac opacity, concerning for infection. Electronically Signed: Jaswinder Polk MD at 22:59 EST , Chest CTA 03/24/22 23:13 IMPRESSION: 1. No pulmonary embolism to the subsegmental level. 2. Mild bilateral bronchial wall thickening, suggestive of small airways disease or bronchitis. 3. Nonspecific mildly enlarged intrathoracic lymphadenopathy. 4. Heterogeneous pancreatic tail lesion measuring 18 mm, should be further characterized with a nonemergent MRI abdomen with contrast. Electronically Signed: Jaswinder Polk MD at 2:18 EST , D/C Instructions Discharge Diet: No restrictions Meaningful Use Info Meaningful Use Diagnoses (Choose all that apply): None applicable Discharge Plan Admission Admit Date/Time: 03/25/22 02:59 Primary Reason for Your Visit: Acute COVID-19 pneumonia/Hypoxia Attending Provider: Roseline Torres Primary Care Provider: Svetlana Casas Consulting Providers: Jayce Barclay Instructions Additional Instructions / Restrictions: Complete your dexamethasone Continue to use an incentive spirometer You should quarantine for total of 10 days (last day 04/03/22) Follow-up with your primary care doctor after your quarantine Discharge Orders/Prescriptions Prescriptions: New dexamethasone 4 mg Tablet 6 mg PO DAILYCM 9 Days Qty: 14 0RF potassium, sodium phosphates 280-160-250 mg Powder In Packet 1 packet PO 4X/DAY 1 Days Qty: 4 0RF aspirin 81 mg capsule 81 mg PO DAILY 30 Days Qty: 30 0RF Continued aspirin [Adult Low Dose Aspirin] 81 mg tablet,delayed release (DR/EC) 81 mg PO DAILY bisacodyl 5 mg tablet,delayed release (DR/EC) 10 mg PO DAILY PRN (Reason: Constipation) duloxetine 60 mg capsule,delayed release(DR/EC) 60 mg PO BID trazodone 50 mg Tablet 50 mg PO QHS PRN (Reason: Sleep) metformin 500 mg tablet 500 mg PO BID atorvastatin 80 mg tablet 80 mg PO QHS (DME) Contour Next Test Strips Strip See Rx Instructions .ROUTE Rx Instructions: Check BID (DME) Contour Next Test Strips Strip See Rx Instructions .Route Rx Instructions: 2 TIMES DAILY glimepiride 4 mg tablet 4 mg PO BID omeprazole 20 mg capsule,delayed release(DR/EC) 20 mg PO DAILY gabapentin 100 mg capsule 100 mg PO BID (DME) [facility] See Rx Instructions .ROUTE .MEDSUPPLY Qty: 100 3RF Rx Instructions: As directed 3 times a day Referrals / Follow Up: Svetlana Casas MD [Primary Care Provider] - In 1 Week Disposition Disposition (needs filled in before D/C Order can be placed): Home, Self Care Charges/Coding Visit Charges Inpatient E&M: 77448 Disch Hosp
[2022-03-25 11:55] LABS: Bedside Glucose 385 mg/dL (74-106)
[2022-03-25] MEDS: Na Biphos/Potassium Phosphate PACKET 1 PACKET PO (13:42)
[2022-03-25] MEDS: amLODIPine 5 MG Tablet PO (16:05)
--- NOTE | 2022-03-29 13:59 | CASEMGMT ---
INCIDENTAL FINDINGS F/U -[facility] Heterogeneous pancreatic tail lesion measuring 18 mm, should be further characterized with a nonemergent MRI abdomen with contrast. -1340: TC to pt as incidental finding f/u. Discussed the information above with pt. Pt voiced awareness of the above. Pt stated, I've had that before. Pt stated he will f/u with PCP. Pt has a f/u appointment scheduled with PCP. Pt began talking about recent ED visit d/t COVID-19. Pt feels he is improving. Pt's got on the phone. Pt's said she still is COVID-19 positive too. Pt's said she feels she is slowly improving but gets lightheaded when she walks to the bathroom d/t removing oxygen. Complex Hydrologist encouraged to keep oxygen on as Ordered. Navigator encouraged to follow DC instructions and to call PCP if needed. Pt's reported having a PCP appt scheduled. Pt's stated she will continue to drink fluids, do deep breathing, and try to walk around the home. Navigator reminded and pt to go to the local ED if there is concern. -0155: Voicemail left with PCP's office to ensure the incidental finding fax was received. Complex Hydrologist left name and phone contact.
== END 2022-03-25 16:51 | disposition home or self-care (01) | DRG 177 ==
LOC: ED 03-25 02:46 → MS3 03-25 03:30
PROVIDERS: Admitting Provider Hospitalist; Emergency Provider Emergency Medicine; PCP Internal Medicine; Visit Provider Internal Medicine
DX: U07.1 COVID-19 (principal); J12.82 Pneumonia due to coronavirus disease 2019; E11.22 Type 2 diabetes mellitus with diabetic chronic kidney disease; N18.31 Chronic kidney disease, stage 3a; E11.65 Type 2 diabetes mellitus with hyperglycemia; E11.40 Type 2 diabetes mellitus with diabetic neuropathy, unspecified; E78.2 Mixed hyperlipidemia; I25.10 Atherosclerotic heart disease of native coronary artery without angina pectoris; I12.9 Hypertensive chronic kidney disease with stage 1 through stage 4 chronic kidney disease, or unspecified chronic kidney disease; Z79.82 Long term (current) use of aspirin; Z82.3 Family history of stroke; G89.29 Other chronic pain; R09.02 Hypoxemia; Z87.891 Personal history of nicotine dependence; K86.9 Disease of pancreas, unspecified
CPT/HCPCS: 71045; 71275; 80048; 80076; 82962; 83735; 84100; 84484; 85025; 85379; 87428; 93005; 99285; Q9967; A4216

== ENCOUNTER → 2022-04-05 | Outpatient (CLI) | payer MEDICARE, OTHER, SELFPAY ==
[2022-04-05 16:44] LABS: Hematocrit 40.1 % (40-54); Hemoglobin 12.7 g/dL (13.0-16.5); Mean Corp Hgb Conc 31.7 g/dL (32-36); Mean Corpuscular Hgb 28.6 pg (27.0-32.0); Mean Corpuscular Volume 90.3 fL (80-94); Mean Platelet Vol. 11.5 fl (6.2-12.0); Platelet Count 182 K/mm3 (150-450); RBC Distribution Width CV 14.6 % (11.6-14.6); RBC Distribution Width SD 48.1 fl (35.1-43.9); Red Blood Count 4.44 M/mm3 (4.6-6.2); White Blood Count 9.4 K/mm3 (4.4-11.0)
[2022-04-05 17:03] LABS: AST(SGOT) 38 U/L (15-37); Alanine Aminotransfer ALT/SGPT 36 U/L (16-61); Albumin, Serum 3.3 g/dL (3.2-5.0); Alkaline Phosphatase 94 U/L (45-117); Anion Gap 8 (5-15); BUN 31 mg/dL (7-18); BUN/Creat Ratio 16.3 RATIO (10-20); Calcium,Total 9.2 mg/dL (8.5-10.1); Chloride 107 mmol/L (98-107); EST Glomerular Filtration Rate 37 mL/min (>60); Est Glom Filt Rate - Afr Amer 45 mL/min (>60); Globulin 3.4 g/dL (2.2-4.2); Glucose 363 mg/dL (74-106); Potassium 5.1 mmol/L (3.5-5.1); Protein, Total 6.7 g/dL (6.4-8.2); Sodium Level 139 mmol/L (136-145)
== END | disposition home or self-care (01) ==
LOC: BIMLAB 15:01
PROVIDERS: PCP Internal Medicine; Referring Provider Nurse Practitioner Family; Visit Provider Nurse Practitioner Family
DX: N19 Unspecified kidney failure (principal); K86.9 Disease of pancreas, unspecified
CPT/HCPCS: 36415; 80053; 85027

== ENCOUNTER → 2022-04-17 | Outpatient (CLI) | payer MEDICARE, OTHER, SELFPAY ==
[2022-04-17 13:02] LABS: Anion Gap 5 (5-15); BUN 18 mg/dL (7-18); BUN/Creat Ratio 11.9 RATIO (10-20); Calcium,Total 9.4 mg/dL (8.5-10.1); Chloride 108 mmol/L (98-107); Creatinine, Serum 1.51 mg/dL (0.70-1.30); EST Glomerular Filtration Rate 48 mL/min (>60); Est Glom Filt Rate - Afr Amer 58 mL/min (>60); Glucose 159 mg/dL (74-106); Potassium 4.1 mmol/L (3.5-5.1); Sodium Level 139 mmol/L (136-145)
== END | disposition home or self-care (01) ==
LOC: LAB 12:05
PROVIDERS: PCP Internal Medicine; Visit Provider Nurse Practitioner Family
DX: N19 Unspecified kidney failure (principal)
CPT/HCPCS: 36415; 80048

== ENCOUNTER → 2022-05-07 | Outpatient (CLI) | payer MEDICARE, OTHER, SELFPAY ==
--- NOTE | 2022-05-07 15:17 | MRI_ITS ---
INDICATION: PANCREATIC LESION EXAMINATION: MR Abdomen WO/W Contrast TECHNIQUE: Multiplanar and multisequence MR images of the abdomen were obtained. IV Contrast Dosage and Agent: clariscan 15ml IV COMPARISON: None. FINDINGS: LOWER CHEST: Lung bases are clear. No cardiomegaly or pericardial effusion. LIVER: Homogeneous. No focal mass. GALLBLADDER AND BILIARY TREE: Surgically absent. Mild intra- or extrahepatic biliary ductal dilation compatible with reservoir effect status post cholecystectomy. PANCREAS: There are innumerable tiny T2 hyperintense cystic lesions throughout the pancreas, largest measuring 1 cm and in the pancreatic body. These do not enhance and there are no solid components. No main pancreatic duct dilatation. There is a T1/T2 isointense 1.7 x 1.3 cm oval solid lesion in the tail of the pancreas which demonstrates delayed enhancement. SPLEEN: Normal size without focal cystic or solid mass. ADRENAL GLANDS: No nodules. KIDNEYS AND URETERS: Normal renal size and position. No hydronephrosis. PERITONEUM: No ascites or free air. No other fluid collection. LYMPH NODES: No enlarged mesenteric or retroperitoneal lymph nodes. VESSELS: Aorta is non-dilated. MRI/MRI Abd WITH and W/O Contrast IMPRESSION: 1.7 cm solid mass in the tail of pancreas with delayed enhancement. This is suspicious for a neuroendocrine tumor. Innumerable tiny cystic lesions in the pancreas with no solid or enhancing components and no main pancreatic duct dilatation. 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 Per ACR white paper criteria, recommend follow-up MRCP in two years. Electronically Signed: Kavin Rajput MD at 22:29 EST ,
== END | disposition home or self-care (01) ==
LOC: MRI 15:17
PROVIDERS: PCP Internal Medicine; Visit Provider Nurse Practitioner Family
DX: K86.9 Disease of pancreas, unspecified (principal)
CPT/HCPCS: 74183; A9575; A4216

== ENCOUNTER → 2022-05-11 | Outpatient (CLI) | payer MEDICARE, OTHER, SELFPAY ==
--- NOTE | 2022-05-11 06:33 | ECHOD_ITS ---
Reason For Study: CORONARY ARTERY DISEASE Procedure This was a 2D Doppler, Color Flow transthoracic echocardiogram. The exam was of adequate technical quality. Exam performed in department. Left Ventricle Normal LV size. Left ventricular systolic function is normal. The estimated ejection fraction is 55 %. No evidence for diastolic dysfunction. No regional wall motion abnormalities noted. Right Ventricle Normal RV size. Normal systolic function. Atria Normal left atrium. Normal right atrium. No doppler evidence for ASD. Mitral Valve There is no mitral annular calcification. Normal mitral valve. Mild (1+) mitral valve insufficiency. Tricuspid Valve Normal tricuspid valve. Mild tricuspid valve insufficiency. Right ventricular systolic pressure estimated to be 19 mmHg. Aortic Valve Trisinus/trileaflet aortic valve. Normal aortic valve. Pulmonic Valve Normal pulmonic valve. Trivial pulmonic valve insufficiency. Great Vessels Normal sized aortic root. Pericardium/Pleural No pericardial effusion. MMode/2D Measurements & Calculations LVIDd: 3.5 cm IVSd: 1.3 cm Ao root diam: 2.8 cm LVIDs: 2.0 cm LVPWd: 0.80 cm RVDd: 3.1 cm FS: 43.6 % LAV(MOD-bp): 44.9 ml LVAd ap4: 23.6 cm2 LVAd ap2: 24.0 cm2 LAV(MOD-bp) Indexed: 22.6 ml/m2 LVLd ap4: 8.2 cm LVLd ap2: 8.9 cm LAV(MOD-sp2): 42.8 ml EDV(MOD-sp4): 55.4 ml EDV(MOD-sp2): 51.4 ml LAV(MOD-sp4): 40.2 ml EDV(sp4-el): 57.9 ml EDV(sp2-el): 54.7 ml LVAs ap4: 15.2 cm2 LVAs ap2: 14.1 cm2 LVLs ap4: 7.2 cm LVLs ap2: 7.3 cm ESV(MOD-sp4): 26.9 ml ESV(MOD-sp2): 23.4 ml ESV(sp4-el): 27.1 ml ESV(sp2-el): 23.2 ml EF(MOD-sp4): 51.4 % EF(MOD-sp2): 54.5 % EF(sp4-el): 53.2 % SV(MOD-sp4): 28.5 ml SV(MOD-sp2): 28.0 ml SV(sp4-el): 30.8 ml LA dimension(2D): 3.6 cm LA A4 area: 17.8 cm2 RA A4 area: 10.5 cm2 Time Measurements MV dec time: 0.26 sec Doppler Measurements & Calculations MV E max miki: 73.3 cm/sec Lat Peak E' Miki: 10.6 cm/sec Med Peak E' Miki: 5.8 cm/sec MV A max miki: 57.2 cm/sec E/E' lat: 6.9 E/E' med: 12.7 MV E/A: 1.3 MV dec slope: 277.7 cm/sec2 Ao V2 max: 117.0 cm/sec LV V1 max: 60.3 cm/sec Ao max P.5 mmHg LV V1 max P.5 mmHg PA V2 max: 116.9 cm/sec PI end-d miki: 86.6 cm/sec TR max miki: 197.3 cm/sec TR max P.1 mmHg ECHO/Echo Complete Interpretation Summary Left ventricular systolic function is normal. The estimated ejection fraction is 55 %. Mild (1+) mitral valve insufficiency. Mild tricuspid valve insufficiency. Trivial pulmonic valve insufficiency. Right ventricular systolic pressure estimated to be 19 mmHg. No evidence for diastolic dysfunction. Ordering Physician: Oscar Contreras Referring Physician: Svetlana Casas Performed By: Ginna Sifuentes
--- NOTE | 2022-05-11 12:35 | STRESSREP ---
Stress Test Report Date: 05-11-2022 Procedure: Pharmacologic stress nuclear imaging study Indications: Chest pain; CAD; PCI Consent: Per the patient Procedure: The patient underwent pharmacologic (Regadenoson 0.4mg ) evaluation with a peak heart rate of 100 beats per minute (68%predicted maximal heart rate) and a resting blood pressure of 128/82 mmHg and a peak blood pressure of 140/88 mmHg. The baseline ECG demonstrated normal sinus rhythm. The peak pharmacologic ECG demonstrated no obvious ECG changes. There was a rare PVC during recovery. There was no complaint of chest discomfort during pharmacologic infusion or recovery. The examination was discontinued secondary to completion of protocol. Impression: 1. Pharmacologic (Regadenoson) evaluation 2. Peak pharmacologic ECG with with no obvious ECG change. 3. There was a rare PVC during recovery. 4. Nuclear images pending Myocardial perfusion imaging study: Technique: The patient was injected with 12.0 millicuries of technetium 99m Cardiolite and subsequently rest SPECT Cardiolite nuclear imaging was obtained in the horizontal long, vertical long, and short axis views. The patient underwent pharmacologic (Regadenoson) evaluation with a peak heart rate of 100 beats per minute (68% percent predicted maximal heart rate) and a resting blood pressure of 128/88 mmHg and a peak blood pressure of 140/88 mmHg. The patient was injected with 36.0 millicuries of technetium 99m Cardiolite and subsequently stress SPECT Cardiolite nuclear imaging was obtained in the horizontal long, vertical long, and short axis views. A gated Cardiolite study at peak stress was obtained. Interpretation: Rest and stress SPECT Cardiolite nuclear imaging status post realignment, normalization, and attenuation correction demonstrate relative uniform tracer uptake and myocardial perfusion appearing within normal limits. There is end systolic thickening and brightening. The gated Cardiolite study demonstrates myocardial thickening and inward wall motion. The reported LVEF is 52%. Impression: 1. Rest and stress SPECT Cardiolite nuclear imaging demonstrate relative uniform tracer uptake and myocardial perfusion appearing within normal limits. 2. The gated Cardiolite study reports an LVEF of 52%. This note was generated with FetchBack software. It may contain incorrect words, spelling, and punctuation that were not noted in checking the note before signing.
== END | disposition home or self-care (01) ==
LOC: CVS 06:33
PROVIDERS: PCP Internal Medicine; Visit Provider Internal Medicine Cardiovascular Disease
DX: I25.10 Atherosclerotic heart disease of native coronary artery without angina pectoris (principal); I10 Essential (primary) hypertension; R55 Syncope and collapse; R06.09 Other forms of dyspnea; Z95.5 Presence of coronary angioplasty implant and graft; Z95.818 Presence of other cardiac implants and grafts
CPT/HCPCS: 78452; 93017; 93306; A9500; A4216; J2785

== ENCOUNTER 2022-07-13 09:00 | Outpatient (RCR) | payer MEDICARE, OTHER, SELFPAY ==
--- NOTE | 2022-07-11 15:35 | HP.OTEVAL_ITS ---
Patient's Visit Information SANCHEZ LIM is a 76 year old M, referred to Occupational Therapy by DOC [facility], with a diagnosis of DeQuervain's Tenosynovitis. Date of Evaluation: 07/11/22 Occupational Therapist: Viktoriya Pride, OTR/Karli, CHT - Subjective This 76 year old male was seen for OT eval with dx of radial styloid t enosynovitis ( De Quervains). pt state he started having pain in Apr. went to see in May. and was placed in thumb spica brace and using prescription cream. pt states he is not sure what had happened. possible from lifting and moving boxes. pt has been in brace but continues to have pain with dressing and daily occupations. pt is right handed - Pain right wrist 0 Pain Intensity Range: 7, 8 - ROM Wrist: right 45/45 left 65/60 ROM Comments: right RD 10 U[address] 20 UD 30 - Strength Is Technician: right 50# left 45# Lateral Pinch: right 14# left 20# Tripod Pinch: right 2# left 4# - Special Tests WHAT Test: right positive - Quick DASH-Disab of Arm,Shoulder& Hand Quick DASH Score: 61.3625 - Goals Goal:100% adherence to protocol: Yes Comment: DeQuervains conservative tx guidelines Goal:ROM equal to unaffected hand: Yes Goal:Is Technician/Pinch strength at least 75% of unaffected hand: Yes Goal:No pain with affected hand use: Yes Goal:Full use of affected hand in daily activities including: Yes - Rehabilitation General Assessment: Pt demo with positive symptoms of right radial styloid tenosynovitis (deQuervains). Due to pain pt is limited with ROM and IND with ADLS and IADLS. Pt would benefit from skilled OT services 2x week for 3-4 week to return pt to PLOF. Today therapist ed. pt on dx. use of thumb spica brace and treatment plan. Pt demo understanding and agree to POC. Rehabilitation Potential: Good - Anticipated Interventions A/AAROM/PROM, Strengthening, Triggerpoint Release, Desensitization, Orthoses, Joint Protection/Energy Conservation, Ergonomic Education, ADL Training, Education re assistive Equipment, Education re Diagnosis, Home Program - Visit Plan Frequency: 2x /Week Duration: 2-4 Weeks TEXT: Thank you for the opportunity to evaluate your patient. For Medicare and Medicare HMO plans, please review the plan of care and approve it. It will need to be FAXED BACK to us at [phone] for Medicare purposes. Please let me know if there are questions or concerns regarding this plan of care. Physician Signature: Date:
== END 2022-07-13 19:00 | disposition home or self-care (01) ==
LOC: OT 09:00
PROVIDERS: PCP Internal Medicine; Referring Provider Physician Assistant; Visit Provider Physician Assistant
DX: M65.4 Radial styloid tenosynovitis [de Quervain] (principal)
CPT/HCPCS: 97035; 97140; 97166

== ENCOUNTER → 2022-10-04 | Outpatient (CLI) | payer MEDICARE, OTHER, SELFPAY ==
[2022-10-04 12:18] LABS: AST(SGOT) 60 U/L (15-37); Alanine Aminotransfer ALT/SGPT 54 U/L (16-61); Albumin, Serum 4.2 g/dL (3.2-5.0); Alkaline Phosphatase 109 U/L (45-117); Bilirubin, Direct 0.14 mg/dL (0.00-0.30); Cholesterol 119 mg/dL (200); Globulin 3.5 g/dL (2.2-4.2); High Density Lipoprotein 54 mg/dL; Protein, Total 7.7 g/dL (6.4-8.2); Triglycerides 205 mg/dL; Very Low Density Lipoprotein 41 mg/dL (5-40)
[2022-10-04 12:22] LABS: Anion Gap 10 (5-15); BUN 29 mg/dL (7-18); BUN/Creat Ratio 15.4 RATIO (10-20); Calcium,Total 9.8 mg/dL (8.5-10.1); Chloride 109 mmol/L (98-107); Creatinine, Serum 1.88 mg/dL (0.70-1.30); EST Glomerular Filtration Rate 37 mL/min (>60); Est Glom Filt Rate - Afr Amer 45 mL/min (>60); Glucose 212 mg/dL (74-106); Potassium 4.1 mmol/L (3.5-5.1); Sodium Level 139 mmol/L (136-145)
== END | disposition home or self-care (01) ==
PROVIDERS: PCP Internal Medicine; Referring Provider Physician Assistant Medical; Visit Provider Physician Assistant Medical
DX: I10 Essential (primary) hypertension (principal); E78.2 Mixed hyperlipidemia; Z95.5 Presence of coronary angioplasty implant and graft
CPT/HCPCS: 36415; 80048; 80061; 80076

== ENCOUNTER 2022-12-24 09:15 | Emergency (ER) | payer MEDICARE, OTHER, SELFPAY ==
[2022-12-24 09:16] VITALS: BP 144/81; PULSE 84; RESP 18; TEMP 36.1; O2SAT 97; BMI 24.4
--- NOTE | 2022-12-24 09:46 | EX.ED.UPPERE ---
HPI History of Present Illness HPI Narrative: Patient presents with left shoulder and neck pain that began yesterday. Patient denies any specific trauma or injury. states that they have been moving and he has been carrying a lot of boxes recently. Patient states his pain began rather suddenly last evening. Patient states the pain starts in his neck and radiates into his left shoulder and into his left scapular area. Patient states it is worse with movement. Patient describes it as sharp. Patient denies any paresthesias or weakness. Patient denies any chest pain or shortness of breath. Chief Complaint: Upper Extremity Injury Informant: patient Onset/Context/Timing Onset: Yesterday Context: Sudden Onset Timing: Continuous Quality of Pain: Sharp Location: Left neck and left shoulder Worsened by: Movement Relieved by: Nothing Associated Symptoms Associated Symptoms: Negative for Parasthesia, Weakness or Loss of Funtion PFSH [facility] Medical History Abnormal EKG Acute renal failure Altered mental status Ankle fracture Anxiety and depression Arthritis Atherosclerotic heart disease of [place] coronary artery without angina pectoris Chronic back pain CKD (chronic kidney disease), stage III Depression Dermatitis Diverticulitis large intestine Essential hypertension Flu vaccine need Fracture of right distal radius Hearing loss Heart disease History of pulmonary embolism Hyperkalemia Long-term use of high-risk medication Mixed hyperlipidemia Numbness of left foot Orthostatic hypotension Pancreas neoplasm Peripheral arterial occlusive disease Preoperative evaluation to rule out surgical contraindication Right wrist pain Scabies Severe sepsis with acute organ dysfunction Syncope and collapse Toe pain Type II diabetes mellitus Urticaria Vision problems Home Medications lancets #100 ea 08/14/21 [Rx Last Taken Unknown] aspirin 81 mg capsule 81 mg PO DAILY 30 days #30 caps 03/25/22 [Rx Last Taken Unknown] blood sugar diagnostic (Contour Next Test Strips) 03/25/22 [History Last Taken Unknown] docusate sodium 50 mg capsule 50 mg PO DAILY 04/09/22 [History Last Taken Unknown] duloxetine 60 mg capsule,delayed release 60 mg PO DAILY mental health 04/09/22 [History Last Taken Unknown] hydroxyzine pamoate 25 mg capsule 25 mg PO QHS 04/09/22 [History Last Taken Unknown] tizanidine 4 mg capsule 4 mg PO QHS PRN 04/09/22 [History Last Taken Unknown] oxycodone 5 mg tablet 5 mg PO BID PRN 05/02/22 [History Last Taken Unknown] trazodone 100 mg tablet 50 mg PO QHS 05/02/22 [History Last Taken Unknown] glimepiride 4 mg tablet 4 mg PO BID blood sugar #180 tabs 05/16/22 [Rx Last Taken Unknown] metformin 500 mg tablet 500 mg PO BID blood sugar #180 tabs 05/16/22 [Rx Last Taken Unknown] gabapentin 100 mg capsule 100 mg PO BID nerve pain #180 caps 07/16/22 [Rx Last Taken Unknown] omeprazole 20 mg capsule,delayed release 20 mg PO DAILY acid reflux #90 caps 08/15/22 [Rx Last Taken Unknown] amlodipine 10 mg tablet 10 mg PO DAILY #90 tabs 09/12/22 [Rx Last Taken Unknown] atorvastatin 80 mg tablet 80 mg PO QHS cholesterol lowering #90 tabs 09/12/22 [Rx Last Taken Unknown] permethrin 5 % topical cream 1 applic topical Q14D 2 doses #60 grams 10/19/22 [Rx Last Taken Unknown] Lantus Solostar U-100 Insulin 100 unit/mL (3 mL) subcutaneous pen (insulin glargine) See Rx Instructions .Route .COMPLEX #15 mL 11/13/22 [Rx Last Taken Unknown] blood sugar diagnostic (Contour Next Test Strips) #100 ea 12/21/22 [Rx Last Taken Unknown] hydrocodone-acetaminophen 5-325mg 5mg-325mg 1 tab PO Q6H PRN PRN Pain 3 days #10 TABLETS 12/24/22 [Rx Last Taken Unknown] Allergy/AdvReac Type Severity Reaction Status Date / Time iodine Allergy Unknown convulsions Verified 12/24/22 09:16 codeine Allergy Itching Verified 12/24/22 09:16 Family History Father FH: congestive heart failure Colon cancer Diabetes Myocardial infarction Mother FH: aneurysm Arthritis rheumatoid Brother CVA (cerebral vascular accident) Diabetes Brother Cancer, Onset Age: 52 unknown diagnosis, possibly lung (smoker) History of partial colectomy Sister Diabetes High cholesterol Surgical History History of appendectomy history of back fusion History of cholecystectomy History of hernia repair History of laminectomy History of right shoulder replacement History of shoulder replacement Postsurgical percutaneous transluminal coronary angioplasty (PTCA) status Presence of stent in coronary artery (~12/07/15) Status post placement of implantable loop recorder Social History household members: spouse housing: house Smoking Status: Former smoker how long ago did patient quit smokin alcohol intake: never substance use type: does not use diet: diabetic caffeine: Yes Type: coffee what type of physical activity do you participate in: none frequency: daily seatbelt use: always do you feel safe at home: Yes ROS ROS ED Constitutional Constitutional ED: Denies chills or fever(s) Eyes Eyes: Denies blurry vision or change in vision ENT ENT ED: Denies rhinorrhea or sore throat Cardiovascular Cardiovascular: Denies chest pain or palpitations Respiratory/Chest Respiratory/Chest: Denies cough or dyspnea Gastrointestinal Gastrointestinal: Denies nausea or vomiting Genitourinary Genitourinary ED: Denies dysuria or hematuria Musculoskeletal Musculoskeletal: Reports back pain and neck pain Integumentary Denies abscess or rash Neurologic Neurologic: Denies headache(s) or weakness Allergic/Immunologic Allergic/Immunologic ED: Denies mouth swelling or urticaria EXAM Physical Exam Const Vital Signs: 12/24/22 09:16 Temperature 97.0 F L Temperature Source Temporal Pulse Rate 84 Respiratory Rate 18 Blood Pressure 144/81 H Blood Pressure Mean 102 Pulse Ox 97 Oxygen Delivery Method Room Air Positive well nourished and well developed General Appearance ED: well developed and NAD HEENT Reports moist mucous membranes Neck Neck Narrative: There is tenderness over the left cervical paraspinal muscles. There is mild midline tenderness. There is no bony crepitance or step-off. Range of motion was limited in all motions of the cervical spine secondary to pain. There is no edema or ecchymosis. Resp normal respiratory effort and clear to auscultation bilaterally Cardio regular rate and regular rhythm GI non-tender Extremity Extremity Narrative: There is tenderness over the left shoulder. There is no edema or ecchymosis. There is no bony crepitance or step-off. There is no deformity noted. Range of motion was limited in all motions of the left shoulder secondary to pain. Strength is 5/5 bilaterally in the upper extremities. Radial pulses are equal bilaterally. Sensation was intact light touch in the radial, median, and ulnar areas. Neuro oriented x3, CN's II-XII intact bilaterally, moves all extremities, no focal motor deficits and no sensory deficits noted Sensorium / Orientation: alert Motor Exam: strength 5/5 throughout Psych mental status grossly normal MDM MDM MDM Narrative Medical decision making narrative: Differential diagnosis includes cervical strain, shoulder strain, degenerative arthritis, fracture, and dislocation. X-rays of the left shoulder will be obtained to assess for fracture and dislocation. X-rays of the cervical spine will be obtained to assess for degenerative arthritis. Radiography Diagnostic Testing: X-rays of the cervical spine were obtained. There are 5 views. On my independent interpretation, there is no acute fracture or spondylolisthesis. There are degenerative changes noted. There are vascular calcifications noted. Radiologist also interpreted the x-rays and agrees. X-rays of the left shoulder were obtained. There are 2 views. On my independent interpretation, there is no acute fracture or dislocation. There are degenerative changes noted. Radiologist also interpreted the x-rays and agrees. Treatment and Re-Evaluation Narrative: Patient was given a dose of [place] here. Patient was resting comfortably on reevaluation. Patient and spouse were advised of his findings. Patient was instructed to use ice to the area. Patient was instructed to do range of motion exercises. Patient was instructed to follow-up with his primary care physician in 5 to 7 days. Patient was given a prescription for a short course of [place]. Patient and spouse understood and were agreeable with the plan. All questions were answered. Discharge Plan Triage Chief Complaint: Upper Extremity Injury ED Provider: Beau Mario Dx/Rx/DC Orders Clinical Impression: Acute cervical myofascial strain, Muscle strain of left shoulder region Instructions: ED Neck Sprain or Strain, ED Muscle Strain, Extremity Prescriptions: New hydrocodone-acetaminophen [hydrocodone-acetaminophen] 5-325 mg tablet 1 tab PO Q6H PRN PRN (Reason: Pain) 3 Days Qty: 10 0RF No Action oxycodone 5 mg tablet 5 mg PO BID PRN duloxetine 60 mg capsule,delayed release(DR/EC) 60 mg PO DAILY glimepiride 4 mg tablet 4 mg PO BID Qty: 180 3RF metformin 500 mg tablet 500 mg PO BID Qty: 180 3RF docusate sodium 50 mg capsule 50 mg PO DAILY hydroxyzine pamoate 25 mg capsule 25 mg PO QHS tizanidine 4 mg capsule 4 mg PO QHS PRN trazodone 100 mg tablet 50 mg PO QHS omeprazole 20 mg capsule,delayed release(DR/EC) 20 mg PO DAILY Qty: 90 3RF amlodipine 10 mg tablet 10 mg PO DAILY Qty: 90 3RF atorvastatin 80 mg tablet 80 mg PO QHS Qty: 90 3RF permethrin 5 % cream 1 applic topical Q14D Qty: 60 0RF Rx Instructions: apply second treatment 14 days after first treatment as instructed (DME) Contour Next Test Strips Strip See Rx Instructions .Route Rx Instructions: 2 TIMES DAILY aspirin 81 mg capsule 81 mg PO DAILY 30 Days Qty: 30 0RF (DME) lancets Misc See Rx Instructions .ROUTE .MEDSUPPLY Qty: 100 3RF Rx Instructions: As directed 3 times a day gabapentin 100 mg capsule 100 mg PO BID Qty: 180 3RF insulin glargine [Lantus Solostar U-100 Insulin] 100 unit/mL (3 mL) insulin pen See Rx Instructions .ROUTE .COMPLEX Qty: 15 2RF Dose Instruction: INJECT 15 UNITS SUBCUTANEOUSLY IN THE EVENING Rx Instructions: INJECT 15 UNITS SUBCUTANEOUSLY IN THE EVENING (DME) Contour Next Test Strips Strip See Rx Instructions .ROUTE .COMPLEX Qty: 100 3RF Dose Instruction: USE TO CHECK BLOOD SUGAR TWICE DAILY. Rx Instructions: USE TO CHECK BLOOD SUGAR TWICE DAILY. Primary Care Provider: Svetlana Casas Referrals: Svetlana Casas MD [Primary Care Provider] - 5-7 Days Disposition Disposition: Home, Self Care
[2022-12-24] MEDS: HYDROcodone Bitartrate/Apap 5/325 Tablet PO (10:20)
--- NOTE | 2022-12-24 10:25 | RAD_ITS ---
STUDY: X-RAY - LEFT SHOULDER REASON FOR EXAM: Male, 77 years old. Injury/Pain TECHNIQUE: 2 view(s) of the shoulder. COMPARISON: None. FINDINGS: There is moderate degenerative arthrosis of the glenohumeral articulation. Normal acromioclavicular joint. Normal acromion. Normal humeral head and visualized proximal humerus. The soft tissue structures are unremarkable. Normal visualized pulmonary apex. RAD/Shoulder min 2 Views IMPRESSION: Degenerative changes. Electronically Signed: Boo Sams MD at 10:43 EDT ,
--- NOTE | 2022-12-24 10:25 | RAD_ITS ---
STUDY: X-RAY - CERVICAL SPINE REASON FOR EXAM: Male, 77 years old. Injury/Pain TECHNIQUE: 3 view(s) of the cervical spine were obtained. COMPARISON: Comparison is made with prior study dated February 18, 2020. FINDINGS: Normal anterior atlantoaxial articulation. Normal odontoid process. Normal cervical lordosis. Normal vertebral bodies and endplates. Normal disc space heights. Normal visualized intervertebral neuroforamina. There are atherosclerotic vascular calcifications of the carotid arteries. RAD/Cerv Spine 2 or 3 Views IMPRESSION: Normal x-ray examination of the visualized cervical spine. Atherosclerotic vascular calcification of the carotid arteries bilaterally. Electronically Signed: Boo Sams MD at 10:44 EDT ,
== END 2022-12-24 11:59 | disposition home or self-care (01) ==
PROVIDERS: Emergency Provider Emergency Medicine; PCP Internal Medicine; Visit Provider Emergency Medicine
DX: S16.1XXA Strain of muscle, fascia and tendon at neck level, initial encounter (principal); N18.30 Chronic kidney disease, stage 3 unspecified; S46.912A Strain of unspecified muscle, fascia and tendon at shoulder and upper arm level, left arm, initial encounter; I25.10 Atherosclerotic heart disease of native coronary artery without angina pectoris; Z86.711 Personal history of pulmonary embolism; Z95.5 Presence of coronary angioplasty implant and graft; Z87.891 Personal history of nicotine dependence; X58.XXXA Exposure to other specified factors, initial encounter
CPT/HCPCS: 72040; 73030; 99283

== ENCOUNTER → 2023-02-18 | Outpatient (CLI) | payer MEDICARE, OTHER, SELFPAY ==
[2023-02-18 12:20] LABS: Absolute Lymphocyte Count 1.65 X10^3/uL (0.83-4.51); Absolute Neutrophil Count 5.4 X10^3/uL (2.0-7.7); Basophil# 0.07 X10^3/uL; Basophil% 0.9 % (0-1); Eosinophil# 0.33 X10^3/uL; Eosinophils% 4.1 % (0-5); Hematocrit 40.4 % (40-54); Hemoglobin 12.2 g/dL (13.0-16.5); Lymphocyte # 1.65 X10^3/ul (0.83-4.51); Lymphocyte % 20.4 % (19-41); Mean Corp Hgb Conc 30.2 g/dL (32-36); Mean Corpuscular Hgb 29.8 pg (27.0-32.0); Mean Corpuscular Volume 98.8 fL (80-94); Mean Platelet Vol. 10.7 fl (6.2-12.0); Monocyte# 0.62 X10^3/uL; Monocyte% 7.7 % (0-10); NRBC Flagged by Analyzer 0 % (0-5); Neutrophil # 5.38 X10^3/uL (2.7-7.7); Neutrophil % 66.7 % (47-70); Platelet Count 228 K/mm3 (150-450); RBC Distribution Width CV 13.5 % (11.6-14.6); RBC Distribution Width SD 49.1 fl (35.1-43.9); Red Blood Count 4.09 M/mm3 (4.6-6.2); White Blood Count 8.1 K/mm3 (4.4-11.0)
[2023-02-18 12:42] LABS: AST(SGOT) 32 U/L (15-37); Alanine Aminotransfer ALT/SGPT 38 U/L (16-61); Albumin, Serum 3.7 g/dL (3.2-5.0); Alkaline Phosphatase 93 U/L (45-117); Anion Gap 4 (5-15); BUN 32 mg/dL (7-18); BUN/Creat Ratio 18.7 RATIO (10-20); Calcium,Total 9.2 mg/dL (8.5-10.1); Chloride 113 mmol/L (98-107); Creatinine, Serum 1.71 mg/dL (0.70-1.30); EST Glomerular Filtration Rate 42 mL/min (>60); Est Glom Filt Rate - Afr Amer 50 mL/min (>60); Globulin 3.6 g/dL (2.2-4.2); Glucose 226 mg/dL (74-106); Potassium 4.8 mmol/L (3.5-5.1); Protein, Total 7.3 g/dL (6.4-8.2); Sodium Level 141 mmol/L (136-145)
[2023-02-19 16:59] LABS: Microalbumin:Creatinine Ratio 522.5 mg/g CRE (<30 mg/g CRE)
== END | disposition home or self-care (01) ==
LOC: BIMLAB 09:33
PROVIDERS: PCP Internal Medicine; Referring Provider Internal Medicine; Visit Provider Internal Medicine
DX: E11.8 Type 2 diabetes mellitus with unspecified complications (principal)
CPT/HCPCS: 36415; 80053; 82043; 82570; 85025

== ENCOUNTER → 2023-05-22 | Outpatient (CLI) | payer MEDICARE, OTHER, SELFPAY ==
--- OUTSIDE RECORDS SUMMARY | 2023-05-22 09:55 | XMS RPT_ITS | CCD ---
Author Name Unknown Address [address] [place] [address] Organization [facility] Care Team Providers Care Welder/Fitter Name Role Phone TISHA FERNÁNDEZ Admitting Unavailable TISHA FERNÁNDEZ Attending Unavailable Ema Lovett MD Unavailable Lolis Laboy RN Unavailable [facility], [place] S Unavailable Svetlana Casas MD Primary Care Provider [phone] Lolis Laboy RN Unavailable [facility], [place] S Unavailable Svetlana Casas MD Primary Care Provider GAY SPEAR Attending Unavailable BEATRIS GAY A Referring Unavailable OLEGHE, EFEWONGBE B Primary Care Unavailable GAY SPEAR Referring Unavailable OLEGHE, EFEWONGBE B Primary Care Unavailable CANDELARIO MCKEON Attending Unavailable SUKRITHAN, CHARLES K Referring Unavailable OLEGHE, EFEWONGBE B Primary Care Unavailable FRANCK TATE Attending Unavailable SUKRITHAN, CHARLES K Referring Unavailable OLEGHE, EFEWONGBE B Primary Care Unavailable FRANCK TATE Attending Unavailable SUKRITHAN, CHARLES K Attending Unavailable SUKRITHAN, CHARLES K Referring Unavailable OLEGHE, EFEWONGBE B Primary Care Unavailable SUKRITHAN, CHARLES K Referring Unavailable OLEGHE, EFEWONGBE B Primary Care Unavailable FRANCK TATE Attending Unavailable Allergies Allergy Classification Reported Allergen(s) Allergy Type Date of Onset Reaction(s) Facility (5 sources) Codeine; Translations: [CODEINE] Drug Allergy 5 Itching [facility] Repository (2 sources) Iodine; Translations: [IODINE] Drug Allergy 5 [facility] Repository (1 source) Penicillins; Translations: [PENICILLINS] Propensity to adverse reactions to drug (disorder) 5 [facility] Repository (1 source) SITagliptin; Translations: [SITAGLIPTIN] Drug Allergy 7 [facility] Repository (1 source) AMOXICILLIN-POT CLAVULANATE; Translations: [AMOXICILLIN-POT CLAVULANATE] Propensity to adverse reactions to drug (disorder) 5 [facility] Repository (1 source) oxyCODONE Drug Allergy 2 [facility] Work Phone: Medications Current Medications Medication Drug Class(es) Dates Sig (Normalized) Sig (Original) aspirin 81 mg delayed release oral tablet (5 sources) Platelet Aggregation Inhibitor, Nonsteroidal Anti-inflammatory Drug Start: 03-25-2022 take 1 tablet by mouth once daily Aspirin Low Dose [address] tablet Take 1 tablet by mouth daily. 0 03/25/2022 Active atorvastatin 80 mg oral tablet (6 sources) HMG-CoA Reductase Inhibitor Start: 06-12-2022 atorvastatin 80 MG tablet Completed/Discontinued Medications Medication Drug Class(es) Dates Sig (Normalized) Sig (Original) gadoterate Meglumine (DOTAREM) 5 MMOL/10ML injection 3-60 mL (1 source) Start: 05-02-2023 End: 05-02-2023 gadoterate Meglumine (DOTAREM) 5 MMOL/10ML injection 3-60 mL Gallium Ga 68 Dotatate (Netspot) 0.5-5.94 millicurie (1 source) Start: 06-26-2022 End: 06-26-2022 Gallium Ga 68 Dotatate (Netspot) 0.5-5.94 millicurie osmotic 24 hr metFORMIN hydrochloride 500 mg extended release oral tablet (6 sources) Biguanide Start: 12-24-2018 take 1 tablet by mouth once daily in the morning METFORMIN HCL ER (OSM) 500 MG [id number] tablet by mouth every morning metformin [id number] Li Mayorga AT Problems Active Problems Problem Classification Problem Date Documented Date Episodic/Chronic Acquired foot deformities (1 source) Hammer toe; Translations: [Other hammer toe(s) (acquired), left foot] Onset: 05-07-2019 05-07-2019 Chronic Diabetes mellitus with complications (3 sources) Hyperglycemia due to type 2 diabetes mellitus; Translations: [Type 2 diabetes mellitus with hyperglycemia] Onset: 10-25-2022 10-25-2022 Chronic Diabetes mellitus without complication (4 sources) Type 2 diabetes mellitus without complication; Translations: [Type 2 diabetes mellitus without complications] Onset: 05-07-2019 05-07-2019 Chronic Malignant neoplasm without specification of site (3 sources) Malignant neuroendocrine tumor; Translations: [Other malignant neuroendocrine tumors] Onset: 06-26-2022 Chronic Other and unspecified benign neoplasm (3 sources) Neuroendocrine tumor of pancreas; Translations: [Other benign neuroendocrine tumors] 10-25-2022 Episodic Other connective tissue disease (1 source) Presence of right artificial shoulder joint; Translations: [Shoulder joint replacement] Onset: 03-17-2021 03-19-2021 Chronic Other injuries and conditions due to external causes (1 source) Injury to peroneal nerve; Translations: [Injury of peroneal nerve at lower leg level, left leg, initial encounter] Onset: 06-12-2021 06-12-2021 Episodic Other non-traumatic joint disorders (1 source) Other specific arthropathies, not elsewhere classified, right shoulder; Translations: [Arthropathy, unspecified, shoulder region] Onset: 01-24-2021 01-24-2021 Chronic Residual codes; unclassified (1 source) Other specified postprocedural states; Translations: [Other specified postprocedural states] Onset: 07-14-2018 Spondylosis; intervertebral disc disorders; other back problems (1 source) Degeneration of lumbar intervertebral disc; Translations: [Other intervertebral disc degeneration, lumbar region] Onset: 05-18-2019 05-18-2019 Chronic Past or Other Problems Problem Classification Problem Date Documented Date Episodic/Chronic Mood disorders (5 sources) Mood disorders Onset: 06-28-2022 Resolved: 10-25-2022 06-28-2022 Neoplasms of unspecified nature or uncertain behavior (2 sources) Neoplasm of unspecified behavior of digestive system; Translations: [Neoplasm of unspecified behavior of digestive system] Onset: 05-18-2022 Episodic Other acquired deformities (1 source) Spondylolisthesis; Translations: [Spondylolisthesis, site unspecified] Onset: 06-11-2019 06-11-2019 Episodic Other and unspecified benign neoplasm (2 sources) Other benign neuroendocrine tumors; Translations: [Other benign neuroendocrine tumors] Onset: 10-25-2022 Episodic Other connective tissue disease (1 source) Complete rotator cuff tear or rupture of right shoulder, not specified as traumatic; Translations: [Complete rupture of rotator cuff] Onset: 01-06-2021 01-06-2021 Episodic Other connective tissue disease (1 source) History of lumbar fusion; Translations: [Arthrodesis status] Onset: 07-09-2019 07-09-2019 Episodic Other connective tissue disease (1 source) Foot pain; Translations: [Pain in left foot] Onset: 05-07-2019 05-07-2019 Episodic Other connective tissue disease (1 source) Incomplete rotator cuff tear or rupture of left shoulder, not specified as traumatic; Translations: [Partial tear of rotator cuff] Onset: 12-24-2018 12-24-2018 Episodic Other screening for suspected conditions (not mental disorders or infectious disease) (2 sources) Other abnormal tumor markers; Translations: [Other abnormal tumor markers] Onset: 06-28-2022 Episodic Pancreatic disorders (not diabetes) (4 sources) Mass of pancreas; Translations: [Other specified diseases of pancreas] Onset: 10-25-2022 Episodic Residual codes; unclassified (1 source) Other specified postprocedural states; Translations: [Personal history of surgery to other organs] Onset: 05-07-2019 05-07-2019 Episodic Spondylosis; intervertebral disc disorders; other back problems (1 source) Spinal stenosis of lumbar region; Translations: [Spinal stenosis, lumbar region with neurogenic claudication] Onset: 06-11-2019 06-11-2019 Episodic Sprains and strains (1 source) Rupture of tendon of biceps; Translations: [Strain of muscle, fascia and tendon of other parts of biceps, left arm, initial encounter] Onset: 12-24-2018 12-24-2018 Episodic Unclassified (1 source) Problem Unclassified (2 sources) Onset: 06-26-2022 Resolved: 06-28-2022 06-26-2022 Results Test Name Value Interpretation Reference Range Facil ity Vital Signs Date Time Vital Sign Value Performing Clinician Faci lity 01-04-2024 10:53-0500 Body height 179 cm Franck Tate MD Work Phone: [facility] 05-02-2023 10:53-0500 Body mass index (BMI) [Ratio] 26.95 kg/m2 Franck Tate MD Work Phone: [facility] 05-02-2023 10:53-0500 Body temperature 97.2 [degF] Franck Tate MD Work Phone: [facility] 05-02-2023 10:53-0500 Body weight 86.36 kg Franck Tate MD Work Phone: [facility] 05-02-2023 10:53-0500 Diastolic blood pressure 57 mm[Hg] Franck Tate MD Work Phone: [facility] 05-02-2023 10:53-0500 Heart rate 95 /min Franck Tate MD Work Phone: [facility] 05-02-2023 10:53-0500 Respiratory rate 18 /min Franck Tate MD Work Phone: [facility] 05-02-2023 10:53-0500 SaO2% (BldA) [Mass fraction] 98 % Franck Tate MD Work Phone: [facility] Encounters Encounter Date Encounter Type Care Provider Facility Start: 05-02-2023 End: 05-02-2023 Office outpatient visit 15 minutes Franck Tate MD Work Phone: [facility] Procedures Date Procedure Procedure Detail Performing Clinician Start: 05-02-2023 Mri abdomen w/o & w/contrast material Gay Spear APRN-INTERNET MARKETING ASSISTANT, DNP Work Phone: Start: 07-06-2022 UPPER EUS Gay Spear APRN-INTERNET MARKETING ASSISTANT Work Phone: Start: 07-06-2022 Glucose measurement, blood Hamza W Mckeon DO Work Phone: Start: 06-26-[address] attenuation skull base mid-thigh Charles Benavides MD Work Phone: Start: 06-12-2021 End: 06-15-2021 Calc BMI norm parameters Ema Lovett MD Work Phone: Start: 06-12-2021 End: 06-15-2021 Current tobacco non-user cad cap copd pv dm Ema Lovett MD Work Phone: Start: 06-12-2021 End: 06-15-2021 Doc rsn no hbp scrn or f/u Ema Lovett MD Work Phone: Start: 06-12-2021 End: 06-15-2021 Docrev cur meds by singh Lovett MD Work Phone: Start: 06-12-2021 End: 06-15-2021 Falls plan of care documented Ema Lovett MD Work Phone: Start: 06-12-2021 End: 06-15-2021 Falls risk assessment documented Ema Lovett MD Work Phone: Start: 06-12-2021 End: 06-15-2021 Pain doc pos and plan Ema Lovett MD Work Phone: Start: 06-12-2021 End: 06-15-2021 Patient encounter procedure Ema Lovett MD Work Phone: Start: 06-12-2021 End: 06-15-2021 Pt falls assess docd 2/> falls/fall w/injury/yr Ema Lovett MD Work Phone: Laboratory test resu lt abnormal Other abnormal tumor markers Franck Tate MD Work Phone: NEGATED: Highlighted rowStart: 06-12-2021 End: 06-12-2021 Documentation of current medications Charlette TYSON Plan of Treatment Date Care Activity Detail Author Start: 01-18-2030 Tetanus vaccination [facility] Start: 05-02-2024 End: 05-02-2024 Magnetic resonance imaging of abdomen and pelvis with contrast MRI ABDOMEN/PELVIS WITHOUT AND WITH CONTRAST Imaging Routine Primary pancreatic neuroendocrine tumor Expected: 05/02/2024, Expires: 05/02/2024 [facility] Immunizations Immunization Date Immunization Notes Care Provider Fern loza 12-31-2019 influenza virus vaccine, unspecified formulation Charles Benavides MD Work Phone: [facility] Payers Date Payer Category Payer Medicare MEDICARE MEDICAR E A AND B [id number] 2022-Present [address] [place] [address] [id number] 2022 Medicare [id number] 2019 Unknown GENERIC PAYOR ME DICARE SUPPLEMENT [id number] 2019-Present [phone] [address] [place] [address] [id number] 2019 Unknown [id number] 1945 Unknown [id number] 1945 Unknown [id number] 1945 Unknown [id number] 1945 Unknown [id number] 1945 Unknown [id number] 1945 Unknown [id number] 1945 Unknown [id number] Social History Date Type Detail Facility Start: 06-15-2021 End: 06-15-2021 Assertion Unknown if ever smoked [facility] Work Phone: Start: 1945 Sex Assigned At Not on file [facility] Start: 06-16-2022 End: 06-26-2022 Exposure to SARS-CoV-2 (event) Unable to assess [facility] Start: 06-28-2022 End: 07-06-2022 Tobacco smoking status NHIS Never smoked tobacco [facility] Start: 06-28-2022 Tobacco use and exposure Smokeless tobacco non-user [facility] Start: 06-28-2022 End: 10-25-2022 Alcohol intake Ex-drinker (finding) [facility] Start: 06-18-2022 End: 07-06-2022 Exposure to SARS-CoV-2 (event) Not sure [facility] Start: 07-06-2022 Tobacco use and exposure User of smokeless tobacco [facility] History of tobacco use Chews Tobacco [facility] Start: 10-25-2022 History of Social function [facility] Start: 10-25-2022 Tobacco use panel [facility] Adolescent depressio n screening assessment 0 [facility] Clinical Notes 08-01-2020 to 05-02-2023 CORNELL Urrutia, MICHAEL - 05/02/2023 11:30 AM CORNELL Rain - 10/25/2022 1:45 PM Vernell Lopez RN - 07/06/2022 5:09 PM Shaheen Lopez RN - 07/06/2022 5:09 PM EST Note Date & Type Note Facility 05-02-2023 History of Present illness Narrative Chief Complaint: Chief Complaint Patient presents with Follow-up History of Present Illness: Mr. Lim is a 77 y.o. 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 He presents to [facility] clinic for surveillance with MRI. Interval History: Mr. Lim is here today with his for his appointment. He complains of constipation. He is taking a stool softener. Discussed adding Miralax. He had a BM this morning, it was just difficult to go. Allergies Allergen Reactions Codeine Itching Current Outpatient Medications Medication Sig Dispense Refill Aspirin Low Dose [address] tablet Take 1 tablet by mouth daily. atorvastatin 80 MG tablet Cyanocobalamin (VITAMIN B12 PO) Take by mouth. Docusate Sodium (DOCUSATE PO) Take 1 capsule by mouth as needed. DULoxetine [address] Particles capsule DR Take 1 capsule by mouth daily. Gabapentin 100 MG capsule TAKE 1 CAPSULE BY MOUTH TWICE DAILY FOR NERVE PAIN gliMEPIride 4 MG tablet Take 1 tablet by mouth. hydrOXYzine pamoate 25 MG capsule TAKE 1 CAPSULE BY MOUTH ONCE DAILY NEEDED FOR 28 DAYS Ibuprofen 200 MG tablet Take 1 tablet by mouth every 6 hours as needed for Mild Pain. metFORMIN 500 MG tablet Take 1 tablet by mouth 2 times daily with meals. Multiple Vitamin (MULTIVITAMIN ADULT PO) Take by mouth. omeprazole [address] capsule 1 capsule 30 minutes before morning meal tiZANidine 4 MG tablet traZODone 100 MG tablet TAKE 2 TABLETS BY MOUTH AT BEDTIME NEEDED oxyCODONE 5 MG tablet TAKE 1 TABLET BY MOUTH TWICE DAILY FOR 28 DAYS (Patient not taking: Reported on 05/02/2023) No current facility-administered medications for this visit. Review of Systems: General ROS: negative for - chills, fever, or weight loss Cardiovascular ROS: no chest pain or dyspnea on exertion Respiratory ROS: no cough, shortness of breath, or wheezing Gastrointestinal ROS: no abdominal pain, change in bowel habits, or black or bloody stools Dermatological ROS: negative Physical Exam: Wt Readings from Last 3 Encounters: 05/02/23 86.4 kg (190 lb 6.4 oz) 05/02/23 77.1 kg (170 lb) 10/25/22 80.1 kg (176 lb 8 oz) BP 120/57 Pulse 95 Temp 97.2 F (36.2 C) (Oral) Resp 18 Ht 1.79 m (5' 10.47 ) Wt 86.4 kg (190 lb 6.4 oz) SpO2 98% Comment: On room air BMI 26.95 kg/m Smoking Status Never General: alert, cooperative, no distress, appears stated age Cardio: regular rate and rhythm, S1, S2 normal, no murmur, click, rub or gallop Pulmonary: clear to auscultation bilaterally Abdomen: soft, non-tender, non-distended Laboratory evaluation: Lab Results Component Value Date SODIUM 140 06/28/2022 POTASSIUM 4.3 06/28/2022 CHLORIDE 107 06/28/2022 CO2 22 06/28/2022 BUN 25 06/28/2022 CREATSERUM 1.57 (H) 06/28/2022 GLUCOSE 137 (H) 07/06/2022 Lab Results Component Value Date WBC 8.48 06/28/2022 HGB 11.6 (L) 06/28/2022 HCT 37.6 (L) 06/28/2022 PLATELET 176 06/28/2022 MCV 92.4 06/28/2022 No results found for: CEA , CEAPRESHAMA , CEANEWMETHOD No results found for: CA125 Lab Results Component Value Date ALT 36 06/28/2022 AST 37 06/28/2022 ALKPHOS 80 06/28/2022 BILITOTAL 0.5 06/28/2022 Tumor Markers: Lab Results Component Value Date CA199 <15.00 06/28/2022 CHROMOGRANA 357 (H) 06/28/2022 Radiographic evaluation: MRI abd today 05/02/2022: Pending final read. Imaging reviewed. Assessment Mr. Lim is a 77 y.o. 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 Plan Patient seen and evaluated by myself and Dr. Tate, all available relevant imaging and labs reviewed, and the plan was developed collaboratively. RTC one year telephone visit with MRI prior, MRI local - sent to [facility] [phone]; fax: [phone] Orders Placed This Encounter MRI ABDOMEN/PELVIS WITHOUT AND WITH CONTRAST All questions were answered to the patient's satisfaction. He was instructed to call the office if they had further questions. Total time INTERNET MARKETING ASSISTANT spent prior to patient visit obtaining and reviewing records, and with patient reviewing HPI, pertinent medical, surgical and social history and conducting physical exam: 15 minutes. Gay Spear, DNP, METAL MODEL MAKER-INTERNET MARKETING ASSISTANT Nurse Practitioner, GI Surgical Oncology Attending Physician Note I interviewed and examined this patient with the FRONT OFFICE COORDINATOR/fellow/resident. I reviewed the history and exam detailed in the note and have edited it as necessary. I agree with the medical decision making with the following comment(s): pancreatic tail lesion appears stable; therefore will swtich to annual surveillance. FU 1 year. Franck Tate MD documented in this encounter [facility] 10-25-2022 History of Present illness Narrative Chief Complaint: Chief Complaint Patient presents with Follow-up History of Present Illness: Mr. Lim is a 77 y.o. 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 He presents to [facility] clinic for surveillance with MRI. Interval History: Mr. Lim is here today with his for his appointment. He complains of increased fatigue and chronic back pain. Allergies Allergen Reactions Codeine Itching Current Outpatient Medications Medication Sig Dispense Refill Aspirin Low Dose [address] tablet Take 1 tablet by mouth daily. atorvastatin 80 MG tablet Cyanocobalamin (VITAMIN B12 PO) Take by mouth. Docusate Sodium (DOCUSATE PO) Take 1 capsule by mouth as needed. DULoxetine [address] Particles capsule DR Take 1 capsule by mouth daily. Gabapentin 100 MG capsule TAKE 1 CAPSULE BY MOUTH TWICE DAILY FOR NERVE PAIN gliMEPIride 4 MG tablet Take 1 tablet by mouth. hydrOXYzine pamoate 25 MG capsule TAKE 1 CAPSULE BY MOUTH ONCE DAILY NEEDED FOR 28 DAYS Ibuprofen 200 MG tablet Take 1 tablet by mouth every 6 hours as needed for Mild Pain. metFORMIN 500 MG tablet Take 1 tablet by mouth 2 times daily with meals. Multiple Vitamin (MULTIVITAMIN ADULT PO) Take by mouth. omeprazole [address] capsule 1 capsule 30 minutes before morning meal oxyCODONE 5 MG tablet TAKE 1 TABLET BY MOUTH TWICE DAILY FOR 28 DAYS tiZANidine 4 MG tablet traZODone 100 MG tablet TAKE 2 TABLETS BY MOUTH AT BEDTIME NEEDED No current facility-administered medications for this visit. Review of Systems: General ROS: negative for - chills, fever or weight loss Cardiovascular ROS: no chest pain or dyspnea on exertion Respiratory ROS: no cough, shortness of breath, or wheezing Gastrointestinal ROS: no abdominal pain, change in bowel habits, or black or bloody stools Dermatological ROS: negative Physical Exam: Wt Readings from Last 3 Encounters: 10/25/22 80.1 kg (176 lb 8 oz) 06/28/22 81.4 kg (179 lb 8 oz) BP 119/64 Pulse 105 Temp 97.6 F (36.4 C) (Oral) Resp 16 Wt 80.1 kg (176 lb 8 oz) SpO2 95% BMI 24.62 kg/m Smoking Status Never General: alert, cooperative, no distress, appears stated age Cardio: regular rate and rhythm, S1, S2 normal, no murmur, click, rub or gallop Pulmonary: clear to auscultation bilaterally Abdomen: soft, non-tender, non-distended Incision: well healed post surgical incision prior surgery Laboratory evaluation: Lab Results Component Value Date SODIUM 140 06/28/2022 POTASSIUM 4.3 06/28/2022 CHLORIDE 107 06/28/2022 CO2 22 06/28/2022 BUN 25 06/28/2022 CREATSERUM 1.57 (H) 06/28/2022 GLUCOSE 137 (H) 07/06/2022 Lab Results Component Value Date WBC 8.48 06/28/2022 HGB 11.6 (L) 06/28/2022 HCT 37.6 (L) 06/28/2022 PLATELET 176 06/28/2022 MCV 92.4 06/28/2022 No results found for: CEA , CEAPRESHAMA , CEANEWMETHOD No results found for: CA125 Lab Results Component Value Date ALT 36 06/28/2022 AST 37 06/28/2022 ALKPHOS 80 06/28/2022 BILITOTAL 0.5 06/28/2022 Tumor Markers: Lab Results Component Value Date CA199 <15.00 06/28/2022 CHROMOGRANA 357 (H) 06/28/2022 Radiographic evaluation: MRI abdomen today 07/25/2022: Reviewed. Final pending. Cytology 07/06/2022 EUS: A. PANCREATIC TAIL, FNA (CYTOLOGY AND CELL BLOCK): FINAL DIAGNOSIS: Well Differentiated Neuroendocrine Tumor Note: Immunohistochemistry performed at [facility] are as follows: Positive: AE1/AE3, synaptophysin and chromogranin Negative: Trypsin Ki67 proliferative index is <2% Assessment Mr. Fely is a 77 y.o. male with a well differentiated NET of the TOP. Plan Patient seen and evaluated by myself and Dr. Tate, all available relevant imaging and labs reviewed, and the plan was developed collaboratively. 1. RTC 6 Months with MRI Orders Placed This Encounter MRI ABDOMEN WITH AND WITHOUT CONTRAST All questions were answered to the patient's satisfaction. He was instructed to call the office if they had further questions. Total time INTERNET MARKETING ASSISTANT spent prior to patient visit obtaining and reviewing records, and with patient reviewing HPI, pertinent medical, surgical and social history and conducting physical exam: 15 minutes. Gay Spear, MICHAEL, METAL MODEL MAKER-INTERNET MARKETING ASSISTANT Nurse Practitioner, GI Surgical Oncology Attending Physician Note I interviewed and examined this patient with the FRONT OFFICE COORDINATOR/fellow/resident. I reviewed the history and exam detailed in the note and have edited it as necessary. I agree with the medical decision making with the following comment(s): MRI appears stable size of tail PNET. Plan on 6mo follow-up then annual if stable. Franck Tate MD documented in this encounter [facility] 07-06-2022 Nurse Note ok to discharge patient home, accompanied by spouse. IV removed per policy, patient denies pain or nausea. Verbal and written discharge instructions given to patient and spouse, understanding of all. Patient transported to discharge by wheelchair. documented in this encounter [facility] 07-06-2022 Nurse Surgical operation note ok to discharge patient home, accompanied by spouse. IV removed per policy, patient denies pain or nausea. Verbal and written discharge instructions given to patient and spouse, understanding of all. Patient transported to discharge by wheelchair. [facility] 07-06-2022 History and physical note ENDOSCOPIC PREPROCEDURE HISTORY AND PHYSICAL HISTORY OF PRESENT ILLNESS: Sanchez Lim is a 76 y.o. male seen in the pre-procedure area at [facility]. The indication for endoscopic evaluation includes: Pancreatic mass PAST MEDICAL HISTORY: Past Medical History: Diagnosis Date Arthritis CAD (coronary artery disease) Chronic back pain Chronic kidney disease Diabetes Diverticulitis Hyperlipidemia Hypertension NC (myocardial infarction) Pulmonary embolism Sepsis SURGICAL HISTORY: Past Surgical History: Procedure Laterality Date APPENDECTOMY BACK SURGERY 4 back fusions. thoracic and down CHOLECYSTECTOMY COLECTOMY PARTIAL OPEN CORONARY STENT PLACEMENT 4 total. [facility] HERNIA REPAIR hiatal LOOP RECORDER IMPLANTATION removed PTCA SHOULDER REPLACEMENT Right MEDICATIONS: Current Outpatient Medications Medication Instructions Aspirin Low Dose 81 mg, Oral, DAILY atorvastatin 80 MG tablet No dose, route, or frequency recorded. Cyanocobalamin (VITAMIN B12 PO) Oral Docusate Sodium (DOCUSATE PO) Oral DULoxetine (CYMBALTA) 60 mg, Oral, DAILY Gabapentin 100 MG capsule TAKE 1 CAPSULE BY MOUTH TWICE DAILY FOR NERVE PAIN gliMEPIride 4 MG tablet No dose, route, or frequency recorded. hydrOXYzine pamoate 25 MG capsule TAKE 1 CAPSULE BY MOUTH ONCE DAILY NEEDED FOR 28 DAYS metFORMIN 500 MG tablet 1 tablet Multiple Vitamin (MULTIVITAMIN ADULT PO) Oral omeprazole [address] capsule 1 capsule 30 minutes before morning meal oxyCODONE 5 MG tablet TAKE 1 TABLET BY MOUTH TWICE DAILY FOR 28 DAYS tiZANidine 4 MG tablet No dose, route, or frequency recorded. traZODone 100 MG tablet TAKE 2 TABLETS BY MOUTH AT BEDTIME NEEDED Current Outpatient Medications: Aspirin Low Dose [address] tablet, Take 1 tablet by mouth daily., Disp: , Rfl: atorvastatin 80 MG tablet, , Disp: , Rfl: Cyanocobalamin (VITAMIN B12 PO), Take by mouth., Disp: , Rfl: Docusate Sodium (DOCUSATE PO), Take by mouth., Disp: , Rfl: DULoxetine [address] Particles capsule DR, Take 1 capsule by mouth daily., Disp: , Rfl: Gabapentin 100 MG capsule, TAKE 1 CAPSULE BY MOUTH TWICE DAILY FOR NERVE PAIN, Disp: , Rfl: gliMEPIride 4 MG tablet, , Disp: , Rfl: hydrOXYzine pamoate 25 MG capsule, TAKE 1 CAPSULE BY MOUTH ONCE DAILY NEEDED FOR 28 DAYS, Disp: , Rfl: metFORMIN 500 MG tablet, 1 tablet, Disp: , Rfl: Multiple Vitamin (MULTIVITAMIN ADULT PO), Take by mouth., Disp: , Rfl: omeprazole [address] capsule, 1 capsule 30 minutes before morning meal, Disp: , Rfl: oxyCODONE 5 MG tablet, TAKE 1 TABLET BY MOUTH TWICE DAILY FOR 28 DAYS, Disp: , Rfl: tiZANidine 4 MG tablet, , Disp: , Rfl: traZODone 100 MG tablet, TAKE 2 TABLETS BY MOUTH AT BEDTIME NEEDED, Disp: , Rfl: ALLERGIES: No Known Allergies FOCUSED REVIEW OF SYSTEMS: Negative for nausea, vomiting, abdominal pain and diarrhea VITAL SIGNS: There were no vitals filed for this visit. PREPROCEDURE PHYSICAL EXAM: AIRWAY: normal, Mallampati: Class III (visualization of only the base of the uvula) HEART: Regular and No murmur PULMONARY: Lungs clear to auscultation bilaterally ABDOMEN: Soft, nontender, nondistended ASSESSMENT: Sanchez Lim is a 76 y.o. male is ready for the planned procedure. ASA Class: ASA 3 - Patient with moderate systemic disease with functional limitations PLAN: Abnormal CT with pancreatic lesion Plan EGD with EUS Will plan to proceed with UPPER EUS using Monitored Anesthesia Care. Candelario Mckeon DO [facility] Work Phone: 07-06-2022 History and physical note ENDOSCOPIC PREPROCEDURE HISTORY AND PHYSICAL HISTORY OF PRESENT ILLNESS: Sanchez Lim is a 76 y.o. male seen in the pre-procedure area at [facility]. The indication for endoscopic evaluation includes: Pancreatic mass PAST MEDICAL HISTORY: Past Medical History: Diagnosis Date Arthritis CAD (coronary artery disease) Chronic back pain Chronic kidney disease Diabetes Diverticulitis Hyperlipidemia Hypertension NC (myocardial infarction) Pulmonary embolism Sepsis SURGICAL HISTORY: Past Surgical History: Procedure Laterality Date APPENDECTOMY BACK SURGERY 4 back fusions. thoracic and down CHOLECYSTECTOMY COLECTOMY PARTIAL OPEN CORONARY STENT PLACEMENT 4 total. [facility] HERNIA REPAIR hiatal LOOP RECORDER IMPLANTATION removed PTCA SHOULDER REPLACEMENT Right MEDICATIONS: Current Outpatient Medications Medication Instructions Aspirin Low Dose 81 mg, Oral, DAILY atorvastatin 80 MG tablet No dose, route, or frequency recorded. Cyanocobalamin (VITAMIN B12 PO) Oral Docusate Sodium (DOCUSATE PO) Oral DULoxetine (CYMBALTA) 60 mg, Oral, DAILY Gabapentin 100 MG capsule TAKE 1 CAPSULE BY MOUTH TWICE DAILY FOR NERVE PAIN gliMEPIride 4 MG tablet No dose, route, or frequency recorded. hydrOXYzine pamoate 25 MG capsule TAKE 1 CAPSULE BY MOUTH ONCE DAILY NEEDED FOR 28 DAYS metFORMIN 500 MG tablet 1 tablet Multiple Vitamin (MULTIVITAMIN ADULT PO) Oral omeprazole [address] capsule 1 capsule 30 minutes before morning meal oxyCODONE 5 MG tablet TAKE 1 TABLET BY MOUTH TWICE DAILY FOR 28 DAYS tiZANidine 4 MG tablet No dose, route, or frequency recorded. traZODone 100 MG tablet TAKE 2 TABLETS BY MOUTH AT BEDTIME NEEDED Current Outpatient Medications: Aspirin Low Dose [address] tablet, Take 1 tablet by mouth daily., Disp: , Rfl: atorvastatin 80 MG tablet, , Disp: , Rfl: Cyanocobalamin (VITAMIN B12 PO), Take by mouth., Disp: , Rfl: Docusate Sodium (DOCUSATE PO), Take by mouth., Disp: , Rfl: DULoxetine [address] Particles capsule DR, Take 1 capsule by mouth daily., Disp: , Rfl: Gabapentin 100 MG capsule, TAKE 1 CAPSULE BY MOUTH TWICE DAILY FOR NERVE PAIN, Disp: , Rfl: gliMEPIride 4 MG tablet, , Disp: , Rfl: hydrOXYzine pamoate 25 MG capsule, TAKE 1 CAPSULE BY MOUTH ONCE DAILY NEEDED FOR 28 DAYS, Disp: , Rfl: metFORMIN 500 MG tablet, 1 tablet, Disp: , Rfl: Multiple Vitamin (MULTIVITAMIN ADULT PO), Take by mouth., Disp: , Rfl: omeprazole [address] capsule, 1 capsule 30 minutes before morning meal, Disp: , Rfl: oxyCODONE 5 MG tablet, TAKE 1 TABLET BY MOUTH TWICE DAILY FOR 28 DAYS, Disp: , Rfl: tiZANidine 4 MG tablet, , Disp: , Rfl: traZODone 100 MG tablet, TAKE 2 TABLETS BY MOUTH AT BEDTIME NEEDED, Disp: , Rfl: ALLERGIES: No Known Allergies FOCUSED REVIEW OF SYSTEMS: Negative for nausea, vomiting, abdominal pain and diarrhea VITAL SIGNS: There were no vitals filed for this visit. PREPROCEDURE PHYSICAL EXAM: AIRWAY: normal, Mallampati: Class III (visualization of only the base of the uvula) HEART: Regular and No murmur PULMONARY: Lungs clear to auscultation bilaterally ABDOMEN: Soft, nontender, nondistended ASSESSMENT: Sanchez Fely is a 76 y.o. male is ready for the planned procedure. ASA Class: ASA 3 - Patient with moderate systemic disease with functional limitations PLAN: Abnormal CT with pancreatic lesion Plan EGD with EUS Will plan to proceed with UPPER EUS using Monitored Anesthesia Care. Candelario Mckeon DO documented in this encounter [facility] 06-28-2022 History and physical note Chief Complaint: Chief Complaint Patient presents with New Patient Clinical Care Team: Referring Provider: Charles Benavides MD Primary Care Provider: Svetlana Casas History of Present Illness: Mr. Lim is a 76 y.o. male with a past medical history significant for Htn, HLD, CAD (+NC, stents total of 4, last in 2018), diverticulitis, CKD3, hypothyroidism, COVID 19 (02/2022), DM, chronic back pain. 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 Oncologic History: Sanchez Lim initially presented to OSH with c/o SOB. He was eventually diagnosed with COVID-19. Incidental finding of a pancreatic tail mass on chest CT prompted further imaging. 03/24/2022: Chest CTA: no PE; Heterogeneous pancreatic tail lesion measuring 18 mm, should be further characterized with a nonemergent MRI abdomen with contrast 05/07/2022 OSH MRI abd w/wo: innumerable tiny T2 hyperintense cystic lesions throughout the pancreas, largest measuring 1 cm and in the pancreatic body. These do not enhance and there are no solid components. No main pancreatic duct dilatation. There is a T1/T2 isointense 1.7 x 1.3 cm oval solid lesion in the tail of the pancreas which demonstrates delayed enhancement. Patient was referred to Dr. Benavides who ordered PET scan and referred to Dr. Tate. 06/26/2022 [place] PET scan: Previous abdominal surgeries: partial colectomy 2006 (diverticulitis), appendectomy, anastasiia, hernia rep Blood thinners: none Colonoscopy: 2019 (approx) Our team has reviewed all outside records available prior to patient visit. Mr. Lim is here today with his for his appointment. He complains of constipation. C/o sob with increased activity. C/o chronic pain (back, leg) Past Medical History: Diagnosis Date Arthritis CAD (coronary artery disease) Chronic back pain Chronic kidney disease Diabetes Diverticulitis Hyperlipidemia Hypertension NC (myocardial infarction) Pulmonary embolism Sepsis Past Surgical History: Procedure Laterality Date APPENDECTOMY BACK SURGERY 4 back fusions. thoracic and down CHOLECYSTECTOMY CORONARY STENT PLACEMENT 4 total. [facility] HERNIA REPAIR hiatal LOOP RECORDER IMPLANTATION removed PTCA SHOULDER REPLACEMENT Right No Known Allergies Current Outpatient Medications Medication Sig Dispense Refill Aspirin Low Dose [address] tablet Take 1 tablet by mouth daily. atorvastatin 80 MG tablet Cyanocobalamin (VITAMIN B12 PO) Take by mouth. Docusate Sodium (DOCUSATE PO) Take by mouth. DULoxetine [address] Particles capsule DR Take 1 capsule by mouth daily. Gabapentin 100 MG capsule TAKE 1 CAPSULE BY MOUTH TWICE DAILY FOR NERVE PAIN gliMEPIride 4 MG tablet hydrOXYzine pamoate 25 MG capsule TAKE 1 CAPSULE BY MOUTH ONCE DAILY NEEDED FOR 28 DAYS metFORMIN 500 MG tablet 1 tablet Multiple Vitamin (MULTIVITAMIN ADULT PO) Take by mouth. omeprazole [address] capsule 1 capsule 30 minutes before morning meal oxyCODONE 5 MG tablet TAKE 1 TABLET BY MOUTH TWICE DAILY FOR 28 DAYS tiZANidine 4 MG tablet traZODone 100 MG tablet TAKE 2 TABLETS BY MOUTH AT BEDTIME NEEDED No current facility-administered medications for this visit. Social History Socioeconomic History Marital status: Spouse name: Not on file Number of children: Not on file Years of education: Not on file Highest education level: Not on file Occupational History Not on file Tobacco Use Smoking status: Never Smokeless tobacco: Never Vaping Use Vaping Use: Never used Substance and Sexual Activity Alcohol use: Not Currently Drug use: Not Currently Sexual activity: Not on file Other Topics Concern Not on file Social History Narrative Lives with Social Determinants of Health Financial Resource Strain: Not on file Food Insecurity: Not on file Transportation Needs: Not on file Physical Activity: Not on file Stress: Not on file Social Connections: Not on file Intimate Partner Violence: Not on file Housing Stability: Not on file Family History Problem Relation Age of Onset Aneurysm Mother Colorectal Cancer Father 70 Diabetes Sister Lung Cancer Brother smoker Myocardial Infarction Brother Stroke Brother Colon Cancer Brother Review of Systems: Systems negative unless noted in BOLD: Consitutional: fever, chills, significant change in weight, fatigue. Cardiovascular: history of heart disease, hypertension, angina, shortness of breath, ankle swelling, palpitations, or heart murmurs. Respiratory: chronic cough, hemoptysis, asthma. Gastrointestinal: anorexia, nausea, vomiting, diarrhea, constipation, melena, hematemesis, abdominal pain, distension. Genitourinary: urinary frequency, urgency, hematuria, or dysuria. Musculoskeletal: back pain, bone pain. Integumentary: rashes, hives Neurological: history of dizziness, falling, numbness or tingling of the hands or feet, forgetfulness. Psychiatric: excessive worry, depression Endocrine: history of thyroid disease Hematologic/Lymphatic: history of easy bruising or bleeding. history of blood clots. Physical Exam: Vitals: BP 154/79 Pulse 87 Temp 98.1 F (36.7 C) (Infrared) Resp 20 Ht 1.8 m (5' 10.87 ) Wt 81.4 kg (179 lb 8 oz) Comment: patient refused take shoes off SpO2 95% BMI 25.13 kg/m Smoking Status Never General: The patient is a male who appears his stated age of 76 y.o. Neuro/Psych: His speech patterns and movements are normal. His affect is appropriate. He is oriented to person, place and time. Recent and remote memory is intact. HEENT: Normocephalic, atraumatic. EOMI. The sclera are anicteric. The mucous membranes are moist. Hearing is grossly intact. Neck: The trachea is in the midline. Neck is supple without lymphadenopathy or thyromegaly. Lungs/Chest: Clear to auscultation bilaterally without wheezes/rales/rhonchi Cardiac: Regular rate and rhythm without murmurs. Abd: Soft, NT/ND. No hepatosplenomegaly, ascites or hernia. Musculoskeletal:Limited range of motion in all four extremities due to pain, with normal strength equally and symmetrically. Warm and dry, 2+ peripheral pulses, no edema Lymphatics: There is no suspicious submandibular, cervical, supraclavicular lymphadenopathy. Integumentary: Skin is warm and dry. Flush, pallor and rash absent. ECOG Performance Status: 1 0 - Asymptomatic (Fully active, able to carry on all predisease activities without restriction) 1 - Symptomatic but completely ambulatory (Restricted in physically strenuous activity but ambulatory and able to carry out work of a light or sedentary nature. For example, light housework, office work) 2 - Symptomatic, <50% in bed during the day (Ambulatory and capable of all self care but unable to carry out any work activities. Up and about more than 50% of waking hours) 3 - Symptomatic, >50% in bed, but not bedbound (Capable of only limited self-care, confined to bed or chair 50% or more of waking hours) 4 - Bedbound (Completely disabled. Cannot carry on any self-care. Totally confined to bed or chair) Laboratory evaluation: Lab Results Component Value Date SODIUM 140 06/28/2022 POTASSIUM 4.3 06/28/2022 CHLORIDE 107 06/28/2022 CO2 22 06/28/2022 BUN 25 06/28/2022 CREATSERUM 1.57 (H) 06/28/2022 GLUCOSE 195 (H) 06/28/2022 Lab Results Component Value Date WBC 8.48 06/28/2022 HGB 11.6 (L) 06/28/2022 HCT 37.6 (L) 06/28/2022 PLATELET 176 06/28/2022 MCV 92.4 06/28/2022 No results found for: HGBA1C Lab Results Component Value Date ALT 36 06/28/2022 AST 37 06/28/2022 ALKPHOS 80 06/28/2022 BILITOTAL 0.5 06/28/2022 Tumor Markers: No results found for: CEA, CA199, AFPTMRMKR, CHROMOGRANA, CA125 Radiographic/ Diagnostic evaluation: [place] PET 06/26/2022: MRI abdomen w and wo contrast OSH 05/07/2022: FINDINGS: LOWER CHEST: Lung bases are clear. No cardiomegaly or pericardial effusion. LIVER: Homogeneous. No focal mass. GALLBLADDER AND BILIARY TREE: Surgically absent. Mild intra- or extrahepatic biliary ductal dilation compatible with reservoir effect status post cholecystectomy. PANCREAS: There are innumerable tiny T2 hyperintense cystic lesions throughout the pancreas, largest measuring 1 cm and in the pancreatic body. These do not enhance and there are no solid components. No main pancreatic duct dilatation. There is a T1/T2 isointense 1.7 x 1.3 cm oval solid lesion in the tail of the pancreas which demonstrates delayed enhancement. SPLEEN: Normal size without focal cystic or solid mass. ADRENAL GLANDS: No nodules. KIDNEYS AND URETERS: Normal renal size and position. No hydronephrosis. PERITONEUM: No ascites or free air. No other fluid collection. LYMPH NODES: No enlarged mesenteric or retroperitoneal lymph nodes. VESSELS: Aorta is non-dilated. MRI/MRI Abd WITH and W/O Contrast IMPRESSION: 1.7 cm solid mass in the tail of pancreas with delayed enhancement. This is suspicious for a neuroendocrine tumor. Innumerable tiny cystic lesions in the pancreas with no solid or enhancing components and no main pancreatic duct dilatation. 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 Per ACR white paper criteria, recommend follow-up MRCP in two years. CTA chest OSH 03/24/2022 (r/o PE, SOB) FINDINGS: LUNGS: Mild bilateral bronchial wall thickening. Irregular linear opacity in the right lower lobe, likely subsegmental atelectasis or pleural/parenchymal scarring. Calcified granuloma in the left upper lobe, similar compared to the prior. AORTA/GREAT VESSELS: No aneurysm.. PULMONARY VESSELS: Normal. PLEURA: Normal. MEDIASTINUM: Coronary artery calcifications. Mildly enlarged hilar and mediastinal lymphadenopathy. Trace pericardial fluid. UPPER ABDOMEN: Heterogeneous pancreatic tail lesion measuring 18 x 14 x 13 mm. Cystic changes in the left kidney. Gallbladder not visualized, likely surgically absent. Scattered colonic diverticulosis without discrete evidence of acute diverticulitis. BONES/SOFT TISSUES: Status post right shoulder arthroplasty with streak artifact, limiting evaluation. No acute osseous abnormality.. OTHER: None. CT/CTA Chest W/WO Contrast IMPRESSION: 1. No pulmonary embolism to the subsegmental level. 2. Mild bilateral bronchial wall thickening, suggestive of small airways disease or bronchitis. 3. Nonspecific mildly enlarged intrathoracic lymphadenopathy. 4. Heterogeneous pancreatic tail lesion measuring 18 mm, should be further characterized with a nonemergent MRI abdomen with contrast. Pathology: nothing related to date Assessment Mr. Lim is a 76 y.o. male with a pancreas tail mass. Plan Patient seen and evaluated by myself and , all available relevant imaging and labs reviewed, and the plan was developed collaboratively. 1. EUS now 2. RTC 4 months with MRI pancreas Orders Placed This Encounter MRI ABDOMEN WITH AND WITHOUT CONTRAST CA 19-9 CALCITONIN CHROMOGRANIN A C-PEPTIDE GASTRIN - NON-STIMULATED GLUCAGON VITAMIN D, (1,25 DIHYDROXY) PROINSULIN PANCREATIC POLYPEPTIDE INSULIN HEMOGLOBIN A1C CBC, EDIF, PLATELET COMPREHENSIVE METABOLIC PANEL UPPER EUS FNA All questions were answered to the patient's satisfaction. He was instructed to call the office with any further questions. Gay Spear DNP, [facility] Nurse Practitioner, GI Surgical Oncology [facility] Work Phone: 06-28-2022 History and physical note Chief Complaint: Chief Complaint Patient presents with New Patient Clinical Care Team: Referring Provider: Charles Benavides MD Primary Care Provider: Svetlana Casas History of Present Illness: Mr. Lim is a 76 y.o. male with a past medical history significant for Htn, HLD, CAD (+NC, stents total of 4, last in 2018), diverticulitis, CKD3, hypothyroidism, COVID 19 (02/2022), DM, chronic back pain. 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 Oncologic History: Sanchez Lim initially presented to OS with c/o SOB. He was eventually diagnosed with COVID-19. Incidental finding of a pancreatic tail mass on chest CT prompted further imaging. 03/24/2022: Chest CTA: no PE; Heterogeneous pancreatic tail lesion measuring 18 mm, should be further characterized with a nonemergent MRI abdomen with contrast 05/07/2022 OSH MRI abd w/wo: innumerable tiny T2 hyperintense cystic lesions throughout the pancreas, largest measuring 1 cm and in the pancreatic body. These do not enhance and there are no solid components. No main pancreatic duct dilatation. There is a T1/T2 isointense 1.7 x 1.3 cm oval solid lesion in the tail of the pancreas which demonstrates delayed enhancement. Patient was referred to Dr. Benavides who ordered PET scan and referred to Dr. Tate. 06/26/2022 [place] PET scan: Previous abdominal surgeries: partial colectomy 2007 (diverticulitis), appendectomy, anastasiia, hernia rep Blood thinners: none Colonoscopy: 2019 (approx) Our team has reviewed all outside records available prior to patient visit. Mr. Lim is here today with his for his appointment. He complains of constipation. C/o sob with increased activity. C/o chronic pain (back, leg) Past Medical History: Diagnosis Date Arthritis CAD (coronary artery disease) Chronic back pain Chronic kidney disease Diabetes Diverticulitis Hyperlipidemia Hypertension NC (myocardial infarction) Pulmonary embolism Sepsis Past Surgical History: Procedure Laterality Date APPENDECTOMY BACK SURGERY 4 back fusions. thoracic and down CHOLECYSTECTOMY CORONARY STENT PLACEMENT 4 total. [facility] HERNIA REPAIR hiatal LOOP RECORDER IMPLANTATION removed PTCA SHOULDER REPLACEMENT Right No Known Allergies Current Outpatient Medications Medication Sig Dispense Refill Aspirin Low Dose [address] tablet Take 1 tablet by mouth daily. atorvastatin 80 MG tablet Cyanocobalamin (VITAMIN B12 PO) Take by mouth. Docusate Sodium (DOCUSATE PO) Take by mouth. DULoxetine [address] Particles capsule DR Take 1 capsule by mouth daily. Gabapentin 100 MG capsule TAKE 1 CAPSULE BY MOUTH TWICE DAILY FOR NERVE PAIN gliMEPIride 4 MG tablet hydrOXYzine pamoate 25 MG capsule TAKE 1 CAPSULE BY MOUTH ONCE DAILY NEEDED FOR 28 DAYS metFORMIN 500 MG tablet 1 tablet Multiple Vitamin (MULTIVITAMIN ADULT PO) Take by mouth. omeprazole [address] capsule 1 capsule 30 minutes before morning meal oxyCODONE 5 MG tablet TAKE 1 TABLET BY MOUTH TWICE DAILY FOR 28 DAYS tiZANidine 4 MG tablet traZODone 100 MG tablet TAKE 2 TABLETS BY MOUTH AT BEDTIME NEEDED No current facility-administered medications for this visit. Social History Socioeconomic History Marital status: Spouse name: Not on file Number of children: Not on file Years of education: Not on file Highest education level: Not on file Occupational History Not on file Tobacco Use Smoking status: Never Smokeless tobacco: Never Vaping Use Vaping Use: Never used Substance and Sexual Activity Alcohol use: Not Currently Drug use: Not Currently Sexual activity: Not on file Other Topics Concern Not on file Social History Narrative Lives with Social Determinants of Health Financial Resource Strain: Not on file Food Insecurity: Not on file Transportation Needs: Not on file Physical Activity: Not on file Stress: Not on file Social Connections: Not on file Intimate Partner Violence: Not on file Housing Stability: Not on file Family History Problem Relation Age of Onset Aneurysm Mother Colorectal Cancer Father 70 Diabetes Sister Lung Cancer Brother smoker Myocardial Infarction Brother Stroke Brother Colon Cancer Brother Review of Systems: Systems negative unless noted in BOLD: Consitutional: fever, chills, significant change in weight, fatigue. Cardiovascular: history of heart disease, hypertension, angina, shortness of breath, ankle swelling, palpitations, or heart murmurs. Respiratory: chronic cough, hemoptysis, asthma. Gastrointestinal: anorexia, nausea, vomiting, diarrhea, constipation, melena, hematemesis, abdominal pain, distension. Genitourinary: urinary frequency, urgency, hematuria, or dysuria. Musculoskeletal: back pain, bone pain. Integumentary: rashes, hives Neurological: history of dizziness, falling, numbness or tingling of the hands or feet, forgetfulness. Psychiatric: excessive worry, depression Endocrine: history of thyroid disease Hematologic/Lymphatic: history of easy bruising or bleeding. history of blood clots. Physical Exam: Vitals: BP 154/79 Pulse 87 Temp 98.1 F (36.7 C) (Infrared) Resp 20 Ht 1.8 m (5' 10.87 ) Wt 81.4 kg (179 lb 8 oz) Comment: patient refused take shoes off SpO2 95% BMI 25.13 kg/m Smoking Status Never General: The patient is a male who appears his stated age of 76 y.o. Neuro/Psych: His speech patterns and movements are normal. His affect is appropriate. He is oriented to person, place and time. Recent and remote memory is intact. HEENT: Normocephalic, atraumatic. EOMI. The sclera are anicteric. The mucous membranes are moist. Hearing is grossly intact. Neck: The trachea is in the midline. Neck is supple without lymphadenopathy or thyromegaly. Lungs/Chest: Clear to auscultation bilaterally without wheezes/rales/rhonchi Cardiac: Regular rate and rhythm without murmurs. Abd: Soft, NT/ND. No hepatosplenomegaly, ascites or hernia. Musculoskeletal:Limited range of motion in all four extremities due to pain, with normal strength equally and symmetrically. Warm and dry, 2+ peripheral pulses, no edema Lymphatics: There is no suspicious submandibular, cervical, supraclavicular lymphadenopathy. Integumentary: Skin is warm and dry. Flush, pallor and rash absent. ECOG Performance Status: 1 0 - Asymptomatic (Fully active, able to carry on all predisease activities without restriction) 1 - Symptomatic but completely ambulatory (Restricted in physically strenuous activity but ambulatory and able to carry out work of a light or sedentary nature. For example, light housework, office work) 2 - Symptomatic, <50% in bed during the day (Ambulatory and capable of all self care but unable to carry out any work activities. Up and about more than 50% of waking hours) 3 - Symptomatic, >50% in bed, but not bedbound (Capable of only limited self-care, confined to bed or chair 50% or more of waking hours) 4 - Bedbound (Completely disabled. Cannot carry on any self-care. Totally confined to bed or chair) Laboratory evaluation: Lab Results Component Value Date SODIUM 140 06/28/2022 POTASSIUM 4.3 06/28/2022 CHLORIDE 107 06/28/2022 CO2 22 06/28/2022 BUN 25 06/28/2022 CREATSERUM 1.57 (H) 06/28/2022 GLUCOSE 195 (H) 06/28/2022 Lab Results Component Value Date WBC 8.48 06/28/2022 HGB 11.6 (L) 06/28/2022 HCT 37.6 (L) 06/28/2022 PLATELET 176 06/28/2022 MCV 92.4 06/28/2022 No results found for: HGBA1C Lab Results Component Value Date ALT 36 06/28/2022 AST 37 06/28/2022 ALKPHOS 80 06/28/2022 BILITOTAL 0.5 06/28/2022 Tumor Markers: No results found for: CEA, CA199, AFPTMRMKR, CHROMOGRANA, CA125 Radiographic/ Diagnostic evaluation: Ga PET 06/26/2022: MRI abdomen w and wo contrast OSH 05/07/2022: FINDINGS: LOWER CHEST: Lung bases are clear. No cardiomegaly or pericardial effusion. LIVER: Homogeneous. No focal mass. GALLBLADDER AND BILIARY TREE: Surgically absent. Mild intra- or extrahepatic biliary ductal dilation compatible with reservoir effect status post cholecystectomy. PANCREAS: There are innumerable tiny T2 hyperintense cystic lesions throughout the pancreas, largest measuring 1 cm and in the pancreatic body. These do not enhance and there are no solid components. No main pancreatic duct dilatation. There is a T1/T2 isointense 1.7 x 1.3 cm oval solid lesion in the tail of the pancreas which demonstrates delayed enhancement. SPLEEN: Normal size without focal cystic or solid mass. ADRENAL GLANDS: No nodules. KIDNEYS AND URETERS: Normal renal size and position. No hydronephrosis. PERITONEUM: No ascites or free air. No other fluid collection. LYMPH NODES: No enlarged mesenteric or retroperitoneal lymph nodes. VESSELS: Aorta is non-dilated. MRI/MRI Abd WITH and W/O Contrast IMPRESSION: 1.7 cm solid mass in the tail of pancreas with delayed enhancement. This is suspicious for a neuroendocrine tumor. Innumerable tiny cystic lesions in the pancreas with no solid or enhancing components and no main pancreatic duct dilatation. 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 Per ACR white paper criteria, recommend follow-up MRCP in two years. CTA chest OSH 03/24/2022 (r/o PE, SOB) FINDINGS: LUNGS: Mild bilateral bronchial wall thickening. Irregular linear opacity in the right lower lobe, likely subsegmental atelectasis or pleural/parenchymal scarring. Calcified granuloma in the left upper lobe, similar compared to the prior. AORTA/GREAT VESSELS: No aneurysm.. PULMONARY VESSELS: Normal. PLEURA: Normal. MEDIASTINUM: Coronary artery calcifications. Mildly enlarged hilar and mediastinal lymphadenopathy. Trace pericardial fluid. UPPER ABDOMEN: Heterogeneous pancreatic tail lesion measuring 18 x 14 x 13 mm. Cystic changes in the left kidney. Gallbladder not visualized, likely surgically absent. Scattered colonic diverticulosis without discrete evidence of acute diverticulitis. BONES/SOFT TISSUES: Status post right shoulder arthroplasty with streak artifact, limiting evaluation. No acute osseous abnormality.. OTHER: None. CT/CTA Chest W/WO Contrast IMPRESSION: 1. No pulmonary embolism to the subsegmental level. 2. Mild bilateral bronchial wall thickening, suggestive of small airways disease or bronchitis. 3. Nonspecific mildly enlarged intrathoracic lymphadenopathy. 4. Heterogeneous pancreatic tail lesion measuring 18 mm, should be further characterized with a nonemergent MRI abdomen with contrast. Pathology: nothing related to date Assessment Mr. Lim is a 76 y.o. male with a pancreas tail mass. Plan Patient seen and evaluated by myself and , all available relevant imaging and labs reviewed, and the plan was developed collaboratively. 1. EUS now 2. RTC 4 months with MRI pancreas Orders Placed This Encounter MRI ABDOMEN WITH AND WITHOUT CONTRAST CA 19-9 CALCITONIN CHROMOGRANIN A C-PEPTIDE GASTRIN - NON-STIMULATED GLUCAGON VITAMIN D, (1,25 DIHYDROXY) PROINSULIN PANCREATIC POLYPEPTIDE INSULIN HEMOGLOBIN A1C CBC, EDIF, PLATELET COMPREHENSIVE METABOLIC PANEL UPPER EUS FNA All questions were answered to the patient's satisfaction. He was instructed to call the office with any further questions. Gay Spear DNP, METAL MODEL MAKER-INTERNET MARKETING ASSISTANT Nurse Practitioner, GI Surgical Oncology documented in this encounter [facility] 06-28-2022 History of Present illness Narrative Surgical Oncology Attending Mr Lim is a 76yo M who was found to have an incidental pancreatic lesion seen on chest imaging. He later underwent MRI which showed a 1.7cm enhancing solid lesion in the tail without pancreatic ductal dilatation or lymphadenopathy. He then had Ga-PET which showed this lesion was avid and there was no evidence of metastatic disease. He is asymptomatic. The remainder of the history and physical are available in the note by Gay Spear NP which I have reviewed and agree with. 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 Given its size <2cm, his age, and asymptomatic nature, active surveillance is a very reasonable initial strategy. To confirm the diagnosis and appropriateness of watchful waiting, we will refer for EUS-FNA. Assuming well-differentiated PNET, he will return in 6 months with repeat MRI pancreas. I had a long conversation with and Mrs Lim about the natural history, prognosis, and management of PNETs. They are encouraged to contact me if additional questions or concerns arise. documented in this encounter [facility] 02-27-2021 Note Patient Outreach (ИВАН CODYAV) SANCHEZ LIM ([id number]) 1945 M NFR Date Time Provider Department 02/27/21 GUILLERMO BRAR During your visit today, we recorded the following information about you: Guillermo Brar Population Health Navigator 02/27/2021 9:45 AM Signed POPULATION HEALTH NAVIGATION OUTREACH Action/FYI I spoke with patient and he states he has a new pcp not in the [facility] No care everywhere Contact made with patient or family member? YES Pt identified by name and : YES Outreach Outcome/Action Spoke to patient or caregiver: PCP confirmed / updated Patient declined Reason for Outreach Attribution: Provider Off-boarding Payer: Payor: MMO / Plan: MMO MEDICARE SUPPLEMENT / Product Type: Indemnity / Care Gap Reviewed:: Reminder: Reminder note to check Health Maintenance for items below Health Maintenance items due: ABDOMINAL AORTIC ANEURYSM SCREENING Never done BP CONTROLLED (<130/80) Never done SHINGRIX VACCINE(1 of 2) Never done ADVANCE DIRECTIVE DISCUSSION Never done DEPRESSION SCREENING due on 11/18/2019 DILATED RETINAL EXAM due on 01/15/2020 DIABETIC FOOT EXAM due on 05/20/2020 HBA1C due on 05/22/2020 COVID-19 VACCINE(2 - Pfizer 3-dose booster series) due on 07/26/2020 ANNUAL PCP TEAM CHRONIC DISEASE VISIT due on 11/17/2020 URINE ALBUMIN:CREATININE RATIO due on 11/19/2020 LDL CHOLESTEROL due on 11/19/2020 SERUM CREATININE due on 12/22/2020 HEMOGLOBIN/HEMATOCRIT due on 12/22/2020 INFLUENZA(1) due on 12/28/2020 Advanced Directives Completed: Have you ever planned for future healthcare decisions with a power of sports attorney, living will, or advance directives? No. Please bring a copy to your next appointment or email to Referrals: N/A Message Sent to Practice: NO Navigation Signature: Guillermo Brar Population Health Navigator February 27, 2021 9:41 AM Allergies As of Date: 02/27/2021 Noted Allergy Reaction AUGMENTIN (AMOXICILLIN-POT CLAVUL*01/09/2005 16 - Unknown Comments: 12/2015: per notes, patient tolerating pip/tazo at OSH CODEINE 12/23/2004 IODINE 12/23/2004 9 - Itching JANUVIA (SITAGLIPTIN) 02/18/2017 14 - Other: See Comments Comments: TOO EXPENSIVE PENICILLINS 12/23/2004 16 - Unknown Comments: 12/2015: per notes, patient tolerating pip/tazo at OSH Date Reviewed: 06/23/2019 [facility] DANE Shafer - Fully Assessed Reason for Visit: Population Health Navigation Outreach [3910] Cmt: Offboarding Prescriptions as of 02/27/2021 - omeprazole (PRILOSEC) 20 mg capsule Take 1 capsule by mouth once daily. - metFORMIN (GLUCOPHAGE) 500 mg tablet Take 1 tablet by mouth twice daily with meals. - atorvastatin (LIPITOR) 80 mg tablet Take 1 tablet by mouth once daily. - glimepiride (AMARYL) 4 mg tablet Two tablets with breakfast - blood sugar diagnostic (BLOOD GLUCOSE TEST) test strip Test blood sugar 1 (one) times daily. Dx: Type 2 DM - Controlled E11.9 Insulin: No, Variable Blood glucose readings - blood sugar diagnostic (ONETOUCH ULTRA BLUE TEST STRIP) test strip USE STRIP TO CHECK GLUCOSE TWICE DAILY - nitroglycerin sublingual (NITROQUICK) 0.4 mg SL tablet Dissolve 0.4 mg under the tongue every 5 minutes as needed. - Lancets lancets Test blood sugar(s) 3 times daily. Dx: Type 2 DM - Uncontrolled E11.65 Insulin: yes - Blood-Glucose Meter monitoring kit Glucose Meter of Choice - Kit - Dx: Type 2 DM - Uncontrolled. E11.65 - aspirin 81 mg chewable tablet Take 1 tablet by mouth once daily. - DULCOLAX, BISACODYL, ORAL Take by mouth as needed. 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16] 06/24/2012 10/31/2017 Nail remnant, finger [L60.8] 09/24/2012 06/25/2014 Spin (more content not included)... [facility] 02-27-2021 Note HNO ID: [id number] Author: Guillermo Brar Population Health Navigator Service: ? Author Type: ? Type: Progress Notes Filed: 02/27/2021 9:45 AM Note Text: POPULATION HEALTH NAVIGATION OUTREACH Action/FYI I spoke with patient and he states he has a new pcp not in the [facility] No care everywhere Contact made with patient or family member? YES Pt identified by name and : YES Outreach Outcome/Action Spoke to patient or caregiver: PCP confirmed / updated Patient declined Reason for Outreach Attribution: Provider Off-boarding Payer: Payor: MMO / Plan: MMO MEDICARE SUPPLEMENT / Product Type: Indemnity / Care Gap Reviewed:: Reminder: Reminder note to check Health Maintenance for items below Health Maintenance items due: ABDOMINAL AORTIC ANEURYSM SCREENING Never done BP CONTROLLED (<130/80) Never done SHINGRIX VACCINE(1 of 2) Never done ADVANCE DIRECTIVE DISCUSSION Never done DEPRESSION SCREENING due on 11/18/2019 DILATED RETINAL EXAM due on 01/15/2020 DIABETIC FOOT EXAM due on 05/20/2020 HBA1C due on 05/22/2020 COVID-19 VACCINE(2 - Pfizer 3-dose booster series) due on 07/26/2020 ANNUAL PCP TEAM CHRONIC DISEASE VISIT due on 11/17/2020 URINE ALBUMIN:CREATININE RATIO due on 11/19/2020 LDL CHOLESTEROL due on 11/19/2020 SERUM CREATININE due on 12/22/2020 HEMOGLOBIN/HEMATOCRIT due on 12/22/2020 INFLUENZA(1) due on 12/28/2020 Advanced Directives Completed: Have you ever planned for future healthcare decisions with a power of sports attorney, living will, or advance directives? No. Please bring a copy to your next appointment or email to Referrals: N/A Message Sent to Practice: NO Navigation Signature: Guillermo Brar Population Health Navigator February 27, 2021 9:41 AM [facility] 01-10-2021 Note Patient Outreach (AM [facility]) SANCHEZ LIM ([id number]) 1945 M NFR Date Time Provider Department 01/10/21 LAKEISHA ESCOBAR During your visit today, we recorded the following information about you: Lakeisha Escobar MA 01/10/2021 1:44 PM Signed POPULATION HEALTH NAVIGATION OUTREACH Action/FYI Needs new PCP. Bernie bx2 Zoove message sent Health Maintenance items due: ANNUAL MEDICARE WELLNESS EXAM BP CONTROLLED (<130/80) Never done ADVANCE DIRECTIVE DISCUSSION Never done DILATED RETINAL EXAM due on 01/15/2020 HBA1C due on 05/22/2020 ANNUAL PCP TEAM CHRONIC DISEASE VISIT due on 11/17/2020 URINE ALBUMIN:CREATININE RATIO due on 11/19/2020 LDL CHOLESTEROL due on 11/19/2020 SERUM CREATININE due on 12/22/2020 HEMOGLOBIN/HEMATOCRIT due on 12/22/2020 INFLUENZA(1) due on 12/28/2020 SMOKING CESSATION Contact made with patient or family member? NO Pt identified by name and : NO Outreach Outcome/Action Unable to reach patient: Phone number not valid / voicemail full Letter mailed Reason for Outreach Care Gap or Scheduling/Wellness visits Payer: Payor: MMO / Plan: MMO MEDICARE SUPPLEMENT / Product Type: Indemnity / Care Gap Reviewed:: Annual Wellness visit Controlling Blood Pressure Diabetic Eye Exam HBA1C Nephropathy (Albumin/Creatinine) Urine Flu vaccine Smoking cessation ACO only Reminder: Reminder note to check Health Maintenance for items below Health Maintenance items due: ABDOMINAL AORTIC ANEURYSM SCREENING Never done BP CONTROLLED (<130/80) Never done SHINGRIX VACCINE(1 of 2) Never done ADVANCE DIRECTIVE DISCUSSION Never done DEPRESSION SCREENING due on 11/18/2019 DILATED RETINAL EXAM due on 01/15/2020 DIABETIC FOOT EXAM due on 05/20/2020 HBA1C due on 05/22/2020 COVID-19 VACCINE(2 - Pfizer 2-dose series) due on 07/26/2020 ANNUAL PCP TEAM CHRONIC DISEASE VISIT due on 11/17/2020 URINE ALBUMIN:CREATININE RATIO due on 11/19/2020 LDL CHOLESTEROL due on 11/19/2020 SERUM CREATININE due on 12/22/2020 HEMOGLOBIN/HEMATOCRIT due on 12/22/2020 INFLUENZA(1) due on 12/28/2020 Advanced Directives Completed: Have you ever planned for future healthcare decisions with a power of sports attorney, living will, or advance directives? no Referrals: N/A Message Sent to Practice: NO Navigation Signature: Lakeisha Escobar MA January 10, 2021 7:50 AM Allergies As of Date: 01/10/2021 Noted Allergy Reaction AUGMENTIN (AMOXICILLIN-POT CLAVUL*01/09/2005 16 - Unknown Comments: 12/2015: per notes, patient tolerating pip/tazo at OSH CODEINE 12/23/2004 IODINE 12/23/2004 9 - Itching JANUVIA (SITAGLIPTIN) 02/18/2017 14 - Other: See Comments Comments: TOO EXPENSIVE PENICILLINS 12/23/2004 16 - Unknown Comments: 12/2015: per notes, patient tolerating pip/tazo at OSH Date Reviewed: 06/23/2019 Reviewed by: Brenda ([facility]) DANE Shafer - Fully Assessed Reason for Visit: Population Health Navigation Outreach [3910] Cmt: YADIRALauren BLOOM AALIYAHA Prescriptions as of 01/10/2021 - omeprazole (PRILOSEC) 20 mg capsule Take 1 capsule by mouth once daily. - metFORMIN (GLUCOPHAGE) 500 mg tablet Take 1 tablet by mouth twice daily with meals. - atorvastatin (LIPITOR) 80 mg tablet Take 1 tablet by mouth once daily. - glimepiride (AMARYL) 4 mg tablet Two tablets with breakfast - blood sugar diagnostic (BLOOD GLUCOSE TEST) test strip Test blood sugar 1 (one) times daily. Dx: Type 2 DM - Controlled E11.9 Insulin: No, Variable Blood glucose readings - blood sugar diagnostic (SellerationTOUCH ULTRA BLUE TEST STRIP) test strip USE STRIP TO CHECK GLUCOSE TWICE DAILY - nitroglycerin sublingual (NITROQUICK) 0.4 mg SL tablet Dissolve 0.4 mg under the tongue every 5 minutes as needed. - Lancets lancets Test blood sugar(s) 3 times daily. Dx: Type 2 DM - Uncontrolled E11.65 Insulin: yes - Blood-Glucose Meter monitoring kit Glucose Meter of Choice - Kit - Dx: Type 2 DM - Uncontrolled. E11.65 - aspirin 81 mg chewable tablet Take 1 tablet by mouth once daily. - DULCOLAX, BISACODYL, ORAL Take by mouth as needed. 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 [facility] 01-10-2021 Note HNO ID: [id number] Author: Lakeisha Escobar MA Service: ? Author Type: [place] Type: Progress Notes Filed: 01/10/2021 1:44 PM Note Text: POPULATION HEALTH NAVIGATION OUTREACH Action/FYI Needs new PCP. Busy bx2 Zoove message sent Health Maintenance items due: ANNUAL MEDICARE WELLNESS EXAM BP CONTROLLED (<130/80) Never done ADVANCE DIRECTIVE DISCUSSION Never done DILATED RETINAL EXAM due on 01/15/2020 HBA1C due on 05/22/2020 ANNUAL PCP TEAM CHRONIC DISEASE VISIT due on 11/17/2020 URINE ALBUMIN:CREATININE RATIO due on 11/19/2020 LDL CHOLESTEROL due on 11/19/2020 SERUM CREATININE due on 12/22/2020 HEMOGLOBIN/HEMATOCRIT due on 12/22/2020 INFLUENZA(1) due on 12/28/2020 SMOKING CESSATION Contact made with patient or family member? NO Pt identified by name and : NO Outreach Outcome/Action Unable to reach patient: Phone number not valid / voicemail full Letter mailed Reason for Outreach Care Gap or Scheduling/Wellness visits Payer: Payor: MMO / Plan: O MEDICARE SUPPLEMENT / Product Type: Indemnity / Care Gap Reviewed:: Annual Wellness visit Controlling Blood Pressure Diabetic Eye Exam HBA1C Nephropathy (Albumin/Creatinine) Urine Flu vaccine Smoking cessation ACO only Reminder: Reminder note to check Health Maintenance for items below Health Maintenance items due: ABDOMINAL AORTIC ANEURYSM SCREENING Never done BP CONTROLLED (<130/80) Never done SHINGRIX VACCINE(1 of 2) Never done ADVANCE DIRECTIVE DISCUSSION Never done DEPRESSION SCREENING due on 11/18/2019 DILATED RETINAL EXAM due on 01/15/2020 DIABETIC FOOT EXAM due on 05/20/2020 HBA1C due on 05/22/2020 COVID-19 VACCINE(2 - Pfizer 2-dose series) due on 07/26/2020 ANNUAL PCP TEAM CHRONIC DISEASE VISIT due on 11/17/2020 URINE ALBUMIN:CREATININE RATIO due on 11/19/2020 LDL CHOLESTEROL due on 11/19/2020 SERUM CREATININE due on 12/22/2020 HEMOGLOBIN/HEMATOCRIT due on 12/22/2020 INFLUENZA(1) due on 12/28/2020 Advanced Directives Completed: Have you ever planned for future healthcare decisions with a power of sports attorney, living will, or advance directives? no Referrals: N/A Message Sent to Practice: NO Navigation Signature: Lakeisha Escobar MA January 10, 2021 7:50 AM [facility] 11-15-2020 Note Patient Outreach (ИВАН CRUZ) SANCHEZ LIM ([id number]) 1945 M NFR Date Time Provider Department 11/15/20 TISH LUGO) ALBERTINA During your visit today, we recorded the following information about you: Tish Farnaz Gooden 11/15/2020 10:50 AM Signed POPULATION HEALTH NAVIGATION OUTREACH Action/FYI Called patient but was unable to leave message. Zoove message sent. Contact made with patient or family member? NO Pt identified by name and : NO Outreach Outcome/Action Unable to reach patient: Phone number not valid / voicemail full Zank message sent Reason for Outreach Care Gap or Scheduling/Wellness visits Payer: Payor: MMO / Plan: MMO MEDICARE SUPPLEMENT / Product Type: Indemnity / Care Gap Reviewed:: Annual Wellness visit Controlling Blood Pressure HBA1C Reminder: Reminder note to check Health Maintenance for items below Health Maintenance items due: ABDOMINAL AORTIC ANEURYSM SCREENING Never done COVID-19 VACCINE(1) Never done BP CONTROLLED (<130/80) Never done SHINGRIX VACCINE(1 of 2) Never done ADVANCE DIRECTIVE DISCUSSION Never done DEPRESSION SCREENING due on 11/18/2019 DILATED RETINAL EXAM due on 01/15/2020 DIABETIC FOOT EXAM due on 05/20/2020 HBA1C due on 05/22/2020 URINE ALBUMIN:CREATININE RATIO due on 11/19/2020 LDL CHOLESTEROL due on 11/19/2020 Advanced Directives Completed: Have you ever planned for future healthcare decisions with a power of sports attorney, living will, or advance directives? No. Are you interested in a follow-up phone call or visit with a doctor for more information about planning for future health care decisions? No Referrals: N/A Message Sent to Practice: NO Navigation Signature: Tish Lugo Ma November 15, 2020 10:47 AM Allergies As of Date: 11/15/2020 Noted Allergy Reaction AUGMENTIN (AMOXICILLIN-POT CLAVUL*01/09/2005 16 - Unknown Comments: 12/2015: per notes, patient tolerating pip/tazo at OSH CODEINE 12/23/2004 IODINE 12/23/2004 9 - Itching JANUVIA (SITAGLIPTIN) 02/18/2017 14 - Other: See Comments Comments: TOO EXPENSIVE PENICILLINS 12/23/2004 16 - Unknown Comments: 12/2015: per notes, patient tolerating pip/tazo at OSH Date Reviewed: 06/23/2019 Reviewed by: Brenda ([facility]) DANE Shafer - Fully Assessed Reason for Visit: Population Health Navigation Outreach [3910] Cmt: ACO Care Gap 1 Prescriptions as of 11/15/2020 - omeprazole (PRILOSEC) 20 mg capsule Take 1 capsule by mouth once daily. - metFORMIN (GLUCOPHAGE) 500 mg tablet Take 1 tablet by mouth twice daily with meals. - atorvastatin (LIPITOR) 80 mg tablet Take 1 tablet by mouth once daily. - glimepiride (AMARYL) 4 mg tablet Two tablets with breakfast - blood sugar diagnostic (BLOOD GLUCOSE TEST) test strip Test blood sugar 1 (one) times daily. Dx: Type 2 DM - Controlled E11.9 Insulin: No, Variable Blood glucose readings - blood sugar diagnostic (ONETOUCH ULTRA BLUE TEST STRIP) test strip USE STRIP TO CHECK GLUCOSE TWICE DAILY - nitroglycerin sublingual (NITROQUICK) 0.4 mg SL tablet Dissolve 0.4 mg under the tongue every 5 minutes as needed. - Lancets lancets Test blood sugar(s) 3 times daily. Dx: Type 2 DM - Uncontrolled E11.65 Insulin: yes - Blood-Glucose Meter monitoring kit Glucose Meter of Choice - Kit - Dx: Type 2 DM - Uncontrolled. E11.65 - aspirin 81 mg chewable tablet Take 1 tablet by mouth once daily. - DULCOLAX, BISACODYL, ORAL Take by mouth as needed. 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16] 06/24/2012 10/31/2017 Nail remnant, finger [L60.8] 09/24/2012 06/25/2014 Spinal stenosis, lumbar region, with neurogenic*06/25/2014 06/29/2015 Biceps tendon tear [S46.219A] 03/22/2015 06/29/2015 Essential hypertensio (more content not included)... [facility] 11-15-2020 Note HNO ID: [id number] Author: Tish Lugo Ma Service: ? Author Type: ? Type: Progress Notes Filed: 11/15/2020 10:50 AM Note Text: POPULATION HEALTH NAVIGATION OUTREACH Action/FYI Called patient but was unable to leave message. Zoove message sent. Contact made with patient or family member? NO Pt identified by name and : NO Outreach Outcome/Action Unable to reach patient: Phone number not valid / voicemail full Zank message sent Reason for Outreach Care Gap or Scheduling/Wellness visits Payer: Payor: MMO / Plan: MMO MEDICARE SUPPLEMENT / Product Type: Indemnity / Care Gap Reviewed:: Annual Wellness visit Controlling Blood Pressure HBA1C Reminder: Reminder note to check Health Maintenance for items below Health Maintenance items due: ABDOMINAL AORTIC ANEURYSM SCREENING Never done COVID-19 VACCINE(1) Never done BP CONTROLLED (<130/80) Never done SHINGRIX VACCINE(1 of 2) Never done ADVANCE DIRECTIVE DISCUSSION Never done DEPRESSION SCREENING due on 11/18/2019 DILATED RETINAL EXAM due on 01/15/2020 DIABETIC FOOT EXAM due on 05/20/2020 HBA1C due on 05/22/2020 URINE ALBUMIN:CREATININE RATIO due on 11/19/2020 LDL CHOLESTEROL due on 11/19/2020 Advanced Directives Completed: Have you ever planned for future healthcare decisions with a power of sports attorney, living will, or advance directives? No. Are you interested in a follow-up phone call or visit with a doctor for more information about planning for future health care decisions? No Referrals: N/A Message Sent to Practice: NO Navigation Signature: Tish Lugo Ma November 15, 2020 10:47 AM [facility] 08-01-2020 Note Patient Outreach (NE TNAV) SANCHEZ LIM ([id number]) 1945 M NFR Date Time Provider Department 08/01/20 VINICIUS GO (PSS) NETNAV During your visit today, we recorded the following information about you: Vinicius Go [facility] 08/01/2020 10:08 AM Signed POPULATION HEALTH NAVIGATION OUTREACH Action/FYI Diabetic Retinal Exam (pt's states he sees a non CC eye Doc) Contact made with patient or family member? YES Pt identified by name and : YES Outreach Outcome/Action Spoke to patient or caregiver: Patient declined navigation services Reason for Outreach Care Gap or Scheduling/Wellness visits Payer: Payor: MMO / Plan: MMO MEDICARE SUPPLEMENT / Product Type: Indemnity / Care Gap Reviewed:: Diabetic Eye Exam Reminder: Reminder note to check Health Maintenance for items below Health Maintenance items due: ABDOMINAL AORTIC ANEURYSM SCREENING Completed BP CONTROLLED (<130/80) Completed SHINGRIX VACCINE(1 of 2) Completed ADVANCE DIRECTIVE DISCUSSION Completed DEPRESSION SCREENING due on 11/18/2019 DILATED RETINAL EXAM due on 01/15/2020 DIABETIC FOOT EXAM due on 05/20/2020 HBA1C due on 05/22/2020 Advanced Directives Completed: Have you ever planned for future healthcare decisions with a power of sports attorney, living will, or advance directives? Referrals: Message Sent to Practice: NO Navigation Signature: Vinicius Go Pss August 01, 2020 10:07 AM Allergies As of Date: 08/01/2020 Noted Allergy Reaction AUGMENTIN (AMOXICILLIN-POT CLAVUL*01/09/2005 16 - Unknown Comments: 12/2015: per notes, patient tolerating pip/tazo at [facility] CODEINE 12/23/2004 IODINE 12/23/2004 9 - Itching JANUVIA (SITAGLIPTIN) 02/18/2017 14 - Other: See Comments Comments: TOO EXPENSIVE PENICILLINS 12/23/2004 16 - Unknown Comments: 12/2015: per notes, patient tolerating pip/tazo at [facility] Date Reviewed: 06/23/2019 Reviewed by: Brenda ([facility]) DANE Shafer - Fully Assessed Reason for Visit: Population Health Navigation Outreach [3910] Cmt: Deferred Care Prescriptions as of 08/01/2020 Sig: OMEPRAZOLE 20 MG CAPSULE,MARIA FERNANDA* Take 1 capsule by mouth once * METFORMIN 500 MG TABLET Take 1 tablet by mouth twice * ATORVASTATIN 80 MG TABLET Take 1 tablet by mouth once d* GLIMEPIRIDE 4 MG TABLET Two tablets with breakfast BLOOD GLUCOSE TEST STRIPS Test blood sugar 1 (one) time* BLOOD SUGAR DIAGNOSTIC STRIPS USE STRIP TO CHECK GLUCOSE TW* NITROGLYCERIN 0.4 MG SUBLINGU* Dissolve 0.4 mg under the ton* LANCETS Test blood sugar(s) 3 times d* BLOOD-GLUCOSE METER KIT Glucose Meter of Choice - Kit* ASPIRIN 81 MG CHEWABLE TABLET Take 1 tablet by mouth once d* DULCOLAX (BISACODYL) ORAL Take by mouth as needed. 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] 01/09/2005 06/29/2015 Benign neoplasm of colon [D12.6] 06/29/2015 Abdominal pain, left lower quadrant [R10.32] 08/09/2006 06/29/2015 DIVERTICULITIS SIGMOID-NO HEMORRHAGE [K57.32] 08/29/2006 06/29/2015 Disorders of bursae and tendons in shoulder reg*09/20/2006 06/29/2015 Shortness of breath [R06.02] 09/20/2006 06/29/2015 Abdominal pain, unspecified site [R10.9] 04/27/2010 06/29/2015 Acute gastritis without mention of hemorrhage [*04/28/2010 06/29/2015 Duodenitis without mention of hemorrhage [K29.8*04/28/2010 06/29/2015 Depression [F32.9] 02/25/2012 10/31/2017 Lumbar disc disease with radiculopathy [M51.16] 06/24/2012 10/31/2017 Nail remnant, finger [L60.8] 09/24/2012 06/25/2014 Spinal stenosis, lumbar region, with neurogenic*06/25/2014 06/29/2015 Biceps tendon tear [S46.219A] 03/22/2015 06/29/2015 Essential hypertension [I10] 06/13/2015 GERD (gastroesophageal reflux disease) [K21.9] 06/13/2015 Neuropathy (HCC) [G62.9] 06/13/2015 06/29/2015 H/O hiatal hernia [Z87.19] 06/13/2015 06/29/2015 H/O hemicolectomy [Z90.49] 06/13/2015 06/29/2015 Finger infection [L08.9] 06/29/2015 01/28/2017 Flexor tenosynovitis of finger [M65.9] 06/29/2015 Impingement syndrome of left shoulder [M75.42] 08/11/2015 10/31/2017 Chronic left shoulder pain [M25.512, G89.29] 08/11/2015 Hyperlipidemia LDL goal <100 [E78.5] 08/15/2015 Diverticulitis [K57.92] 01/15/2016 Status post insertion of drug-eluting stent int*01/16/2016 Uncontrolled type 2 diabetes mellitus without c*02/07/2016 04/01/2017 Diverticulitis of large intestine without perfo*06/28/2016 10/31/2017 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 [facility] 08-01-2020 Note HNO ID: [id number] Author: Vinicius Modi Service: ? Author Type: ? Type: Progress Notes Filed: 08/01/2020 10:08 AM Note Text: POPULATION HEALTH NAVIGATION OUTREACH Action/ Diabetic Retinal Exam (pt's states he sees a non CC eye Doc) Contact made with patient or family member? YES Pt identified by name and : YES Outreach Outcome/Action Spoke to patient or caregiver: Patient declined navigation services Reason for Outreach Care Gap or Scheduling/Wellness visits Payer: Payor: MMO / Plan: MMO MEDICARE SUPPLEMENT / Product Type: Indemnity / Care Gap Reviewed:: Diabetic Eye Exam Reminder: Reminder note to check Health Maintenance for items below Health Maintenance items due: ABDOMINAL AORTIC ANEURYSM SCREENING Completed BP CONTROLLED (<130/80) Completed SHINGRIX VACCINE(1 of 2) Completed ADVANCE DIRECTIVE DISCUSSION Completed DEPRESSION SCREENING due on 11/18/2019 DILATED RETINAL EXAM due on 01/15/2020 DIABETIC FOOT EXAM due on 05/20/2020 HBA1C due on 05/22/2020 Advanced Directives Completed: Have you ever planned for future healthcare decisions with a power of sports attorney, living will, or advance directives? Referrals: Message Sent to Practice: NO Navigation Signature: Vinicius Go Ly August 01, 2020 10:07 AM [facility] Evaluation note There may be informa tion available, but it has not been provided by the sender. 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, any site [facility] Diagnosis 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, any site [facility] Diagnosis 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, any site [facility] this encounter [facility] available[facility] Work Phone: Summary Purpose Family History No Family History Records FoundNo Family History Records FoundThere may be information available, but it has not been provided by the sender.No Family History Records Found Advance Directives No Advanced Directives Records FoundNo Advanced Directives Records FoundThere may be information available, but it has not been provided by the sender.No Advanced Directives Records Found Chief Complaint Chief Complaint Description Start Date left foot pain Preliminary chief co mplaint data, not yet signed by the author as of Reason for Referral Specialty Diagnoses / Procedures Referred By Onesimo silva Referred To Contact Diagnoses Neuroendocrine cancer Procedures NUC PET NEUROENDOCRINE CHG NUC THERAPY HYPERTHYROID SUBSEQUENT Charles Benavides MD [address] [facility] [address] [place] [address] Referral ID Status Reason Start Date Expiration Date V isits Requested Visits Authorized [id number] Pending Review 05/17/2022 06/11/2023 1 1 Specialty Diagnoses / Procedures Referred By Contac t Referred To Contact Diagnoses Pancreatic mass Procedures MRI ABDOMEN WITH AND WITHOUT CONTRAST MD MRI, ABDOMEN, COMBO Beatris, Gay A, METAL MODEL MAKER-INTERNET MARKETING ASSISTANT [address] [place] [address] Referral ID Status Reason Start Date Expiration Date V isits Requested Visits Authorized [id number] New Request 06/28/2022 07/23/2023 1 1 Specialty Diagnoses / Procedures Referred By Contac t Referred To Contact Diagnoses Pancreatic mass Procedures UPPER EUS MD EGD INTRMURAL US NEEDLE ASPIRATE/BIOPSY ESOPHAGS Beatris, Gay A, METAL MODEL MAKER-INTERNET MARKETING ASSISTANT [address] [place] [address] Referral ID Status Reason Start Date Expiration Date V isits Requested Visits Authorized [id number] New Request 06/28/2022 07/23/2023 1 1 Specialty Diagnoses / Procedures Referred By Contac t Referred To Contact Diagnoses Pancreatic mass Procedures UPPER EUS MD EGD INTRMURAL US NEEDLE ASPIRATE/BIOPSY ESOPHAGS Beatris, Gay A, METAL MODEL MAKER-INTERNET MARKETING ASSISTANT [address] [place] [address] Specialty Diagnoses / Procedures Referred By Contac t Referred To Contact Diagnoses Primary pancreatic neuroendocrine tumor Procedures MRI ABDOMEN WITH AND WITHOUT CONTRAST MD MRI, ABDOMEN, COMBO Beatris, Gay A, METAL MODEL MAKER-INTERNET MARKETING ASSISTANT [address] [place] [address] Referral ID Status Reason Start Date Expiration Date V isits Requested Visits Authorized [id number] New Request 10/25/2022 11/19/2023 1 1 Specialty Diagnoses / Procedures Referred By Contac t Referred To Contact Diagnoses Primary pancreatic neuroendocrine tumor Procedures MRI ABDOMEN/PELVIS WITHOUT AND WITH CONTRAST MD MRI, ABDOMEN, COMBO MD MRI, PELVIS, COMBO Beatris, Gay A, METAL MODEL MAKER-INTERNET MARKETING ASSISTANT, DNP [address] [place] [address] Referral ID Status Reason Start Date Expiration Date V isits Requested Visits Authorized [id number] New Request 05/02/2023 05/26/2024 1 1 Specialty Diagnoses / Procedures Referred By Contac t Referred To Contact Diagnoses Primary pancreatic neuroendocrine tumor Procedures MRI ABDOMEN WITH AND WITHOUT CONTRAST MD MRI, ABDOMEN, COMBO Gay Spear, METAL MODEL MAKER-INTERNET MARKETING ASSISTANT, DNP [address] [place] [address] Additional Source Comments (unrecognized sect ion and content) No Status Records FoundNo Status Records FoundNo Status Records Found INFORMATION SOURCE (unrecogn ized section and content) DATE CREATED AUTHOR AUTHOR'S ORGANIZ ATION 05/31/2021 [facility] DATE CREATED AUTHOR AUTHOR'S ORGANIZ ATION 02/08/2023 [facility] Reason for Visit (unrecogniz ed section and content) Specialty Diagnoses / Procedures Referred By Contac t Referred To Contact Diagnoses Neuroendocrine cancer Procedures NUC PET NEUROENDOCRINE CHG NUC THERAPY HYPERTHYROID SUBSEQUENT Charles Benavides MD [address] [phone] Referral ID Status Reason Start Date Expiration Date V isits Requested Visits Authorized [id number] Pending Review 05/17/2022 06/11/2023 1 1 Reason Comments New Patient Specialty Diagnoses / Procedures Referred By Contac t Referred To Contact Surgical Oncology Diagnoses Neuroendocrine cancer Charles Benavides MD [address] [phone] Referral ID Status Reason Start Date Expiration Date V isits Requested Visits Authorized [id number] Pending Review 06/07/2022 07/02/2023 1 1 Specialty Diagnoses / Procedures Referred By Contac t Referred To Contact Diagnoses Pancreatic mass Procedures UPPER EUS MD EGD INTRMURAL US NEEDLE ASPIRATE/BIOPSY ESOPHAGS Gay Spear, METAL MODEL MAKER-INTERNET MARKETING ASSISTANT [address] [place] [address] Referral ID Status Reason Start Date Expiration Date V isits Requested Visits Authorized [id number] New Request 06/28/2022 07/23/2023 1 1 Reason Comments Follow-up Specialty Diagnoses / Procedures Referred By Onesimo silva Referred To Contact Diagnoses Primary pancreatic neuroendocrine tumor Procedures MRI ABDOMEN WITH AND WITHOUT CONTRAST MD MRI, ABDOMEN, Gay Enciso, METAL MODEL MAKER-INTERNET MARKETING ASSISTANT, DNP [address] [place] [address] Referral ID Status Reason Start Date Expiration Date V isits Requested Visits Authorized [id number] New Request 10/25/2022 11/19/2023 1 1 Care Teams (unrecognized sec tion and content) Welder/Fitter Relationship Specialty Start Date End Date Svetlana Casas MD [address] [place] [address] [phone] PCP - General Internal Medicine 06/26/22 Lolis Laboy, RN Registered Nurse 05/15/22 Yelitza Baker, [facility] [address] [place] [address] [phone]- Oncologist Hematology 05/15/22 Welder/Fitter Relationship Specialty Start Date End Date Svetlana Casas MD [address] [place] [address] [phone] PCP - General Internal Medicine 06/26/22 Lolis Laboy, RN Registered Nurse 05/15/22 Yelitza Baker, [address] [phone]- Oncologist Hematology 05/15/22 Welder/Fitter Relationship Specialty Start Date End Date Svetlana Casas MD [address] [place] [address] [phone] PCP - General Internal Medicine 06/26/22 Lolis Laboy, RN Registered Nurse 05/15/[address] [facility] [address] [place], [place] [phone] Oncologist Hematology 05/15/22 Welder/Fitter Relationship Specialty Start Date End Date Svetlana Casas MD [address] [facility] [address] [place] [phone] PCP - General Internal Medicine 06/26/22 Lolis Laboy RN Registered Nurse 05/15/[address] [facility] [address] [place], [place] [phone] Oncologist Hematology 05/15/22 FOR RECORDS PERTAINING TO PATIENTS WHO ARE OR HAVE BEEN ENROLLED IN A CHEMICAL DEPENDENCY/SUBSTANCEABUSE PROGRAM, SOME INFORMATION MAY BE OMITTED. This clinical summary was aggregated from multiple sources. Caution should be exercised in using it in the provision of clinical care. This summary normalizes information from multiple sources, and as a consequence, information in this document may materially change the coding, format and clinical context of patient data. In addition, data may be omitted in some cases. CLINICAL DECISIONS SHOULD BE BASED ON THE PRIMARY CLINICAL RECORDS. [facility] [employer] [facility]. provides no warranty or guarantee of the accuracy or completeness of information in this document.
[2023-05-22 12:41] LABS: Absolute Lymphocyte Count 1.94 X10^3/uL (0.83-4.51); Absolute Neutrophil Count 5.1 X10^3/uL (2.0-7.7); Basophil# 0.07 X10^3/uL; Basophil% 0.9 % (0-1); Eosinophil# 0.15 X10^3/uL; Eosinophils% 1.9 % (0-5); Hematocrit 38.5 % (40-54); Hemoglobin 11.7 g/dL (13.0-16.5); Lymphocyte # 1.94 X10^3/ul (0.83-4.51); Lymphocyte % 24.5 % (19-41); Mean Corp Hgb Conc 30.4 g/dL (32-36); Mean Corpuscular Hgb 28.1 pg (27.0-32.0); Mean Corpuscular Volume 92.5 fL (80-94); Mean Platelet Vol. 10.5 fl (6.2-12.0); Monocyte# 0.63 X10^3/uL; Monocyte% 7.9 % (0-10); NRBC Flagged by Analyzer 0 % (0-5); Neutrophil # 5.09 X10^3/uL (2.7-7.7); Neutrophil % 64.2 % (47-70); Platelet Count 268 K/mm3 (150-450); RBC Distribution Width CV 13.6 % (11.6-14.6); Red Blood Count 4.16 M/mm3 (4.6-6.2); White Blood Count 7.9 K/mm3 (4.4-11.0)
[2023-05-22 14:05] LABS: ALB/GLOB Ratio 1.1 RATIO (0.9-2.4); AST(SGOT) 31 U/L (15-37); Alanine Aminotransfer ALT/SGPT 41 U/L (16-61); Alkaline Phosphatase 115 U/L (45-117); Anion Gap 3 (5-15); BUN 32 mg/dL (7-18); BUN/Creat Ratio 15.8 RATIO (10-20); Calcium,Total 9.7 mg/dL (8.5-10.1); Chloride 108 mmol/L (98-107); Creatinine, Serum 2.03 mg/dL (0.70-1.30); EST Glomerular Filtration Rate 34 mL/min (>60); Est Glom Filt Rate - Afr Amer 41 mL/min (>60); Globulin 3.5 g/dL (2.2-4.2); Glucose 307 mg/dL (74-106); Potassium 4.3 mmol/L (3.5-5.1); Protein, Total 7.5 g/dL (6.4-8.2); Sodium Level 135 mmol/L (136-145); Thyroid Stim Hormone (TSH) 7.51 uIU/mL (0.358-3.74)
== END | disposition home or self-care (01) ==
LOC: BIMLAB 09:32
PROVIDERS: PCP Internal Medicine; Referring Provider Internal Medicine; Visit Provider Internal Medicine
DX: E11.8 Type 2 diabetes mellitus with unspecified complications (principal); E03.9 Hypothyroidism, unspecified
CPT/HCPCS: 36415; 80053; 84439; 84443; 85025

== ENCOUNTER 2023-06-29 14:13 | Emergency (ER) | payer MEDICARE, OTHER, SELFPAY ==
[2023-06-29 14:14] VITALS: BP 157/76; PULSE 91; RESP 16; TEMP 36.8; O2SAT 99; BMI 25.2
[2023-06-29] MEDS: Diphth,Pertuss(Acell),Tet Vac 0.5 ML Vial IM (14:47)
[2023-06-29] MEDS: Lidocaine 1% (20 ml mdv) 20 ML Vial 3 ML INFILT (14:47)
--- NOTE | 2023-06-29 14:53 | RAD_ITS ---
STUDY: X-RAY - LEFT HAND REASON FOR EXAM: Male, 77 years old. Pain after trauma TECHNIQUE: 3 view(s) of the hand. COMPARISON: None. FINDINGS: Normal radiocarpal articulation. Normal distal radioulnar joint. Normal visualized carpal bones. Normal carpal articulations There is degenerative arthrosis of the carpometacarpal (CMC) articulation of the thumb. Normal second through fifth carpometacarpal joints. Normal metacarpi. There is degenerative arthrosis of the metacarpophalangeal (MCP) joints. Normal interphalangeal joint of the thumb. Normal proximal and distal phalanges of the thumb. There is degenerative arthrosis of the metacarpophalangeal (MCP) joints. There is diffuse articular joint space narrowing of the proximal and distal interphalangeal joints of the second through fifth fingers, but without erosive changes or periarticular soft tissue swelling. Normal phalanges of the second through fifth fingers. There is a punctate likely foreign body projecting volar the middle phalanx of the index finger and adjacent to the distal phalanx of the thumb RAD/Hand Min 3 Views IMPRESSION: Age consistent degenerative changes without acute fracture or suspicious osseous lesion. Foreign bodies suspected in the soft tissues volar to the middle phalanx of the index finger and adjacent to the distal phalanx of the thumb Electronically Signed: Matty Pineda MD at 15:41 EST ,
--- OUTSIDE RECORDS SUMMARY | 2023-06-29 15:02 | XMS RPT_ITS | CCD ---
Author Name Unknown Address [address] [place] [address] Organization [facility] Care Team Providers Care Microsoft Dynamics Developer Name Role Phone TISHA FERNÁNDEZ Admitting Unavailable TISHA FERNÁNDEZ Attending Unavailable Ema Lovett MD Unavailable Lolis Laboy RN Unavailable Unavailable [facility] [place], [place] Unavailable Svetlana Casas MD Primary Care Provider [phone] Lolis Laboy RN Unavailable [facility], [place] Unavailable Svetlana Casas MD [...] Codeine; Translations: [CODEINE] Drug Allergy 5 Itching [facility] Repository (2 sources) Iodine; Translations: [IODINE] Drug Allergy 5 [facility] (1 source) Penicillins; Translations: [PENICILLINS] Propensity to adverse reactions to drug (disorder) 5 [facility] (1 source) SITagliptin; Translations: [SITAGLIPTIN] Drug Allergy 7 [facility] Rep[facility] (1 source) AMOXICILLIN-POT CLAVULANATE; Translations: [AMOXICILLIN-POT CLAVULANATE] Propensity to adverse reactions to drug (disorder) 5 [facility] (1 source) oxyCODONE Drug Allergy 2 [facility] Work [...] morning METFORMIN HCL ER (OSM) 500 MG [id number] tablet by mouth every morning metformin [id number] Li Mayorga AT Problems Active Problems Problem [...] 179 cm Franck Tate MD Work Phone: [facility] 05-02-2023 10:53-0500 Body mass index (BMI) [Ratio] 26.95 kg/m2 Franck Tate MD Work Phone: [facility] 05-02-2023 10:53-0500 Body temperature 97.2 [degF] Franck Tate MD Work Phone: [facility] 05-02-2023 10:53-0500 Body weight 86.36 kg Franck Tate MD Work Phone: [facility] 05-02-2023 10:53-0500 Diastolic blood pressure 57 mm[Hg] Franck Tate MD Work Phone: [facility] 05-02-2023 10:53-0500 Heart rate 95 /min Franck Tate MD Work Phone: [facility] 05-02-2023 10:53-0500 Respiratory rate 18 /min Franck Tate MD Work Phone: [facility] 05-02-2023 10:53-0500 SaO2% (BldA) [Mass fraction] 98 % Franck Tate MD Work Phone: [facility] Encounters Encounter Date Encounter Type Care Provider Facility Start: 05-02-2023 End: 05-02-2023 Office outpatient visit 15 minutes Franck Tate MD Work Phone: [facility] Procedures Date Procedure Procedure Detail Performing Clinician Start: 05-02-2023 Mri abdomen w/o & w/contrast material Gay Spear APRN-MUSHROOM LABORER, DNP Work Phone: Start: 07-06-2022 UPPER EUS Gay Spear APRN-MUSHROOM LABORER Work Phone: Start: 07-06-2022 Glucose measurement, blood Hamza W Mckeon DO Work Phone: Start: 06-26-[address] attenuation skull base mid-thigh Charles Benavides MD Work Phone: Start: 06-12-2021 End: 06-15-2021 Calc BMI norm parameters Ema Lovett MD Work Phone: Start: 06-12-2021 End: 06-15-2021 Current tobacco non-user cad cap copd pv dm mEa Lovett MD Work Phone: Start: 06-12-2021 End: [...] Author Start: 01-18-2030 Tetanus vaccination TETANUS [facility] Start: 05-02-2024 End: 05-02-2024 Magnetic resonance imaging of abdomen and pelvis with contrast MRI ABDOMEN/PELVIS WITHOUT AND WITH CONTRAST Imaging Routine Primary pancreatic neuroendocrine tumor Expected: 05/02/2024, Expires: 05/02/2024 [facility] Immunizations Immunization Date Immunization Notes Care Provider Fern loza 12-31-2019 influenza virus vaccine, unspecified formulation Charles Benavides MD Work Phone: [facility] Payers Date Payer Category Payer Medicare MEDICARE MEDICAR E A AND B [id number] 2022-Present [address] [place] [address] [id number] 2022 Medicare [id number] 2019 Unknown GENERIC PAYOR ME DICARE SUPPLEMENT [id number] 2019-Present [phone] [address] [place] [address] [id number] 2019 Unknown [id number] 1945 Unknown [id number] 1945 Unknown [id number] 1945 Unknown [id number] 1945 Unknown [id number] 1945 Unknown [id number] 1945 Unknown [id number] 1945 Unknown [id number] Social History Date Type Detail Facility Start: 06-15-2021 End: 06-15-2021 Assertion Unknown if ever smoked [facility] Work Phone: Start: 1945 Sex Assigned At Not on file [facility] Start: 06-16-2022 End: 06-26-2022 Exposure to SARS-CoV-2 (event) Unable to assess [facility] Start: 06-28-2022 End: 07-06-2022 Tobacco smoking status NHIS Never smoked tobacco [facility] Start: 06-28-2022 Tobacco use and exposure Smokeless tobacco non-user [facility] Start: 06-28-2022 End: 10-25-2022 Alcohol intake Ex-drinker (finding) [facility] Start: 06-18-2022 End: 07-06-2022 Exposure to SARS-CoV-2 (event) Not sure [facility] Start: 07-06-2022 Tobacco use and exposure User of smokeless tobacco [facility] History of tobacco use Chews Tobacco [facility] Start: 10-25-2022 History of Social function [facility] Start: 10-25-2022 Tobacco use panel [facility] Adolescent depressio n screening assessment 0 [facility] Clinical Notes 08-01-2020 to 05-02-2023 CORNELL [...] Tumor, Ki67 <2%. He presents to [facility] clinic for surveillance with [...] MRI prior, MRI local - sent to [facility] [phone]; fax: [phone] Orders Placed This Encounter MRI ABDOMEN/PELVIS WITHOUT AND WITH CONTRAST All questions were answered to the patient's satisfaction. He was instructed to call the office if they had further questions. Total time MUSHROOM LABORER spent prior to patient visit obtaining and reviewing records, and with patient reviewing HPI, pertinent medical, surgical and social history and conducting physical exam: 15 minutes. Gay Spear, DNP, YARN TEXTURE MACHINE OPERATOR-MUSHROOM LABORER Nurse Practitioner, GI Surgical Oncology Attending Physician Note I interviewed and examined this patient with the PHP MYSQL WEB DEVELOPER/fellow/resident. I reviewed the history and exam detailed in the note and have edited it as necessary. I agree with the medical decision making with the following comment(s): pancreatic tail lesion appears stable; therefore will swtich to annual surveillance. FU 1 year. Franck Tate MD documented in this encounter [facility] 10-25-2022 History of Present illness Narrative Chief Complaint: Chief Complaint Patient presents with Follow-up History of Present Illness: Mr. Lim is a 77 y.o. 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 He presents to [facility] clinic for surveillance with [...] Differentiated Neuroendocrine Tumor Note: Immunohistochemistry performed at [facility] are as follows: Positive: AE1/AE3, synaptophysin and [...] if they had further questions. Total time MUSHROOM LABORER spent prior to patient visit obtaining and reviewing records, and with patient reviewing HPI, pertinent medical, surgical and social history and conducting physical exam: 15 minutes. Gay Spear, MICHAEL, YARN TEXTURE MACHINE OPERATOR-MUSHROOM LABORER Nurse Practitioner, GI Surgical Oncology Attending Physician Note I interviewed and examined this patient with the PHP MYSQL WEB DEVELOPER/fellow/resident. I reviewed the history and exam detailed in the note and have edited it as necessary. I agree with the medical decision making with the following comment(s): MRI appears stable size of tail PNET. Plan on 6mo follow-up then annual if stable. Franck Tate MD documented in this encounter [facility] 07-06-2022 Nurse Note ok to discharge patient home, accompanied by spouse. IV removed per policy, patient denies pain or nausea. Verbal and written discharge instructions given to patient and spouse, understanding of all. Patient transported to discharge by wheelchair. documented in this encounter [facility] 07-06-2022 Nurse Surgical operation note ok to discharge patient home, accompanied by spouse. IV removed per policy, patient denies pain or nausea. Verbal and written discharge instructions given to patient and spouse, understanding of all. Patient transported to discharge by wheelchair. [facility] 07-06-2022 History and physical note ENDOSCOPIC PREPROCEDURE HISTORY AND PHYSICAL HISTORY OF PRESENT ILLNESS: Sanchez Lim is a 76 y.o. male seen in the pre-procedure area at [facility]. The indication for endoscopic evaluation includes: Pancreatic mass PAST MEDICAL HISTORY: Past Medical History: Diagnosis Date Arthritis CAD (coronary artery disease) Chronic back pain Chronic kidney disease Diabetes Diverticulitis Hyperlipidemia Hypertension NE (myocardial infarction) Pulmonary embolism Sepsis SURGICAL HISTORY: Past Surgical History: Procedure Laterality Date APPENDECTOMY BACK SURGERY 4 back fusions. thoracic and down CHOLECYSTECTOMY COLECTOMY PARTIAL OPEN CORONARY STENT PLACEMENT 4 total. [facility] HERNIA REPAIR hiatal LOOP RECORDER IMPLANTATION [...] using Monitored Anesthesia Care. Candelario Mckeon DO [facility] Work Phone: 07-06-2022 History and physical note ENDOSCOPIC PREPROCEDURE HISTORY AND PHYSICAL HISTORY OF PRESENT ILLNESS: Sanchez Lim is a 76 y.o. male seen in the pre-procedure area at [facility]. The indication for endoscopic evaluation includes: Pancreatic mass PAST MEDICAL HISTORY: Past Medical History: Diagnosis Date Arthritis CAD (coronary artery disease) Chronic back pain Chronic kidney disease Diabetes Diverticulitis Hyperlipidemia Hypertension NE (myocardial infarction) Pulmonary embolism Sepsis SURGICAL HISTORY: Past Surgical History: Procedure Laterality Date APPENDECTOMY BACK SURGERY 4 back fusions. thoracic and down CHOLECYSTECTOMY COLECTOMY PARTIAL OPEN CORONARY STENT PLACEMENT 4 total. [facility] HERNIA REPAIR hiatal LOOP RECORDER IMPLANTATION [...] Mckeon DO documented in this encounter [facility] 06-28-2022 History and physical note Chief Complaint: Chief Complaint Patient presents with New Patient Clinical Care Team: Referring Provider: Charles Benavides MD Primary Care Provider: Svetlana Casas History of Present Illness: Mr. Lim is a 76 y.o. male with a past medical history significant for Htn, HLD, CAD (+NE, stents total of 4, last in 2018), diverticulitis, CKD3, hypothyroidism, COVID 19 (02/2022), DM, chronic back pain. He presents to [facility] clinic for surgical evaluation [...] Chronic kidney disease Diabetes Diverticulitis Hyperlipidemia Hypertension NE (myocardial infarction) Pulmonary embolism Sepsis Past Surgical History: Procedure Laterality Date APPENDECTOMY BACK SURGERY 4 back fusions. thoracic and down CHOLECYSTECTOMY CORONARY STENT PLACEMENT 4 total. [facility] HERNIA REPAIR hiatal LOOP RECORDER IMPLANTATION [...] DNP, CLEOPATRA-GABRIELA Nurse Practitioner, GI Surgical Oncology [facility] Work Phone: 06-28-2022 History and physical note Chief Complaint: Chief Complaint Patient presents with New Patient Clinical Care Team: Referring Provider: Charles Benavides MD Primary Care Provider: Svetlana Casas History of Present Illness: Mr. Lim is a 76 y.o. male with a past medical history significant for Htn, HLD, CAD (+NE, stents total of 4, last in 2018), diverticulitis, CKD3, hypothyroidism, COVID 19 (02/2022), DM, chronic back pain. He presents to [facility] clinic for surgical evaluation of a incidental pancreatic tail mass, most consistent on imaging with neuroendocrine tumor. Oncologic History: Sanchez iLm initially presented to [facility] with c/o SOB. [...] Chronic kidney disease Diabetes Diverticulitis Hyperlipidemia Hypertension NE (myocardial infarction) Pulmonary embolism Sepsis Past Surgical History: Procedure Laterality Date APPENDECTOMY BACK SURGERY 4 back fusions. thoracic and down CHOLECYSTECTOMY CORONARY STENT PLACEMENT 4 total. [facility] HERNIA REPAIR hiatal LOOP RECORDER IMPLANTATION [...] with any further questions. Gay Spear DNP, YARN TEXTURE MACHINE OPERATOR-MUSHROOM LABORER Nurse Practitioner, GI Surgical Oncology documented in this encounter [facility] 06-28-2022 History of Present illness Narrative [...] or concerns arise. documented in this encounter [facility] 02-27-2021 Note Patient Outreach (ИВАН CODYAV) SANCHEZ LIM ([id number]) 1945 M NFR Date Time Provider Department 02/27/21 GUILLEMRO BRAR During your visit today, we recorded the following information about you: Guillermo Brar Population Health Navigator 02/27/2021 9:45 AM Signed POPULATION HEALTH NAVIGATION OUTREACH Action/FYI I spoke with patient and he states he has a new pcp not in the [facility] No care everywhere Contact made with [...] future healthcare decisions with a power of commercial real estate attorney, living will, or advance directives? No. 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 [facility] 02-27-2021 Note HNO ID: [id number] Author: Guillermo Brar Population Health Navigator Service: ? Author Type: ? Type: Progress Notes Filed: 02/27/2021 9:45 AM Note Text: POPULATION HEALTH NAVIGATION OUTREACH Action/FYI I spoke with patient and he states he has a new pcp not in the [facility] No care everywhere Contact made with [...] future healthcare decisions with a power of commercial real estate attorney, living will, or advance directives? No. Please bring a copy to your next appointment or email to Referrals: N/A Message Sent to Practice: NO Navigation Signature: Guillermo Brar Population Health Navigator February 27, 2021 9:41 AM [facility] 01-10-2021 Note Patient Outreach (AM BCMG) SANCHEZ LIM ([id number]) 1945 M NFR Date Time Provider Department 01/10/21 LAKEISHA ESCOBAR During your visit today, we recorded the following information about you: Lakeisha Escobar MA 01/10/2021 1:44 PM Signed POPULATION HEALTH NAVIGATION OUTREACH Action/FYI Needs new PCP. Bernie bx2 myLINGO message sent Health Maintenance items due: ANNUAL [...] future healthcare decisions with a power of commercial real estate attorney, living will, or advance directives? 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 [facility] 01-10-2021 Note HNO ID: [id number] Author: Lakeisha Escobar MA Service: ? Author Type: Food Service Counter Clerk Type: Progress Notes Filed: 01/10/2021 1:44 PM Note Text: POPULATION HEALTH NAVIGATION OUTREACH Action/FYI Needs new PCP. Busy bx2 myLINGO message sent Health Maintenance items due: ANNUAL [...] future healthcare decisions with a power of commercial real estate attorney, living will, or advance directives? no Referrals: N/A Message Sent to Practice: NO Navigation Signature: Lakeisha Escobar MA January 10, 2021 7:50 AM [facility] 11-15-2020 Note Patient Outreach (ИВАН CRUZ) SANCHEZ LIM ([id number]) 1945 M NFR Date Time Provider Department 11/15/20 TISH LUGO) ALBERTINA During your visit today, we recorded the following information about you: Tish Farnaz Gooden 11/15/2020 10:50 AM Signed POPULATION HEALTH NAVIGATION OUTREACH Action/FYI Called patient but was unable to leave message. myLINGO message sent. Contact made with patient or family member? NO Pt identified by name and : NO Outreach Outcome/Action Unable to reach patient: Phone number not valid / voicemail full LegalGuru message sent Reason for Outreach Care Gap [...] future healthcare decisions with a power of commercial real estate attorney, living will, or advance directives? No. 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 [facility] 11-15-2020 Note HNO ID: [id number] Author: Tish Lugo Ma Service: ? Author Type: ? Type: Progress Notes Filed: 11/15/2020 10:50 AM Note Text: POPULATION HEALTH NAVIGATION OUTREACH Action/FYI Called patient but was unable to leave message. myLINGO message sent. Contact made with patient or family member? NO Pt identified by name and : NO Outreach Outcome/Action Unable to reach patient: Phone number not valid / voicemail full LegalGuru message sent Reason for Outreach Care Gap [...] future healthcare decisions with a power of commercial real estate attorney, living will, or advance directives? No. Are you interested in a follow-up phone call or visit with a doctor for more information about planning for future health care decisions? No Referrals: N/A Message Sent to Practice: NO Navigation Signature: Tish Lugo Ma November 15, 2020 10:47 AM [facility] 08-01-2020 Note Patient Outreach (NE TNAV) SANCHEZ LIM ([id number]) 1945 M NFR Date Time Provider Department 08/01/20 VINICIUS GO (PSS) NETNAV During your visit today, we recorded the following information about you: Vinicius Go [facility] 08/01/2020 10:08 AM Signed POPULATION HEALTH NAVIGATION [...] future healthcare decisions with a power of commercial real estate attorney, living will, or advance directives? 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 [facility] 08-01-2020 Note HNO ID: [id number] Author: Vinicius Modi Service: ? Author Type: [...] future healthcare decisions with a power of commercial real estate attorney, living will, or advance directives? Referrals: Message Sent to Practice: NO Navigation Signature: Vinicius Go Ly August 01, 2020 10:07 AM [facility] Evaluation note There may be informa tion available, but it has not been provided by the sender. [facility] Work Phone: [facility] Pancreatic mass- Primary Unspecified disease of pancreas Other abnormal tumor markers Type 2 diabetes mellitus without complication, unspecified whether elder assistant insulin use [facility] Diagnosis Pancreatic mass Unspecified disease of pancreas [facility] Diagnosis 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, any site [facility] Diagnosis 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, any site [facility] Diagnosis 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, any site [facility]ructions[facility] information available.[facility] Work Phone: Summary Purpose Family History [...] HYPERTHYROID SUBSEQUENT Charles Benavides MD [address] [facility] [address] [place] [address] Referral ID Status Reason Start Date Expiration Date V isits Requested Visits Authorized [id number] Pending Review 05/17/2022 06/11/2023 1 1 Specialty Diagnoses / Procedures Referred By Contac t Referred To Contact Diagnoses Pancreatic mass Procedures MRI ABDOMEN WITH AND WITHOUT CONTRAST PA MRI, ABDOMEN, COMBO Beatris, Gay A, YARN TEXTURE MACHINE OPERATOR-MUSHROOM LABORER [address] [place] [address] Referral ID Status Reason Start Date Expiration Date V isits Requested Visits Authorized [id number] New Request 06/28/2022 07/23/2023 1 1 Specialty Diagnoses / Procedures Referred By Contac t Referred To Contact Diagnoses Pancreatic mass Procedures UPPER EUS PA EGD INTRMURAL US NEEDLE ASPIRATE/BIOPSY ESOPHAGS Beatris, Gay A, YARN TEXTURE MACHINE OPERATOR-MUSHROOM LABORER [address] [place] [address] Referral ID Status Reason Start Date Expiration Date V isits Requested Visits Authorized [id number] New Request 06/28/2022 07/23/2023 1 1 Specialty Diagnoses / Procedures Referred By Contac t Referred To Contact Diagnoses Pancreatic mass Procedures UPPER EUS PA EGD INTRMURAL US NEEDLE ASPIRATE/BIOPSY ESOPHAGS Beatris, Gay A, YARN TEXTURE MACHINE OPERATOR-MUSHROOM LABORER [address] [place] [address] Specialty Diagnoses / Procedures Referred By Contac t Referred To Contact Diagnoses Primary pancreatic neuroendocrine tumor Procedures MRI ABDOMEN WITH AND WITHOUT CONTRAST PA MRI, ABDOMEN, COMBO Beatris, Gay A, YARN TEXTURE MACHINE OPERATOR-MUSHROOM LABORER [address] [place] [address] Referral ID Status Reason Start Date Expiration Date V isits Requested Visits Authorized [id number] New Request 10/25/2022 11/19/2023 1 1 Specialty Diagnoses / Procedures Referred By Contac t Referred To Contact Diagnoses Primary pancreatic neuroendocrine tumor Procedures MRI ABDOMEN/PELVIS WITHOUT AND WITH CONTRAST PA MRI, ABDOMEN, COMBO PA MRI, PELVIS, COMBO Beatris, Gay A, YARN TEXTURE MACHINE OPERATOR-MUSHROOM LABORER, DNP [address] [place] [address] Referral ID Status Reason Start Date Expiration Date V isits Requested Visits Authorized [id number] New Request 05/02/2023 05/26/2024 1 1 Specialty Diagnoses / Procedures Referred By Contac t Referred To Contact Diagnoses Primary pancreatic neuroendocrine tumor Procedures MRI ABDOMEN WITH AND WITHOUT CONTRAST PA MRI, ABDOMEN, COMBO Gay Spear, YARN TEXTURE MACHINE OPERATOR-MUSHROOM LABORER, DNP [address] [place] [address] Additional Source Comments (unrecognized sect ion and content) No Status Records FoundNo Status Records FoundNo Status Records Found INFORMATION SOURCE (unrecogn ized section and content) DATE CREATED AUTHOR AUTHOR'S ORGANIZ ATION 05/31/2021 [facility] DATE CREATED AUTHOR AUTHOR'S ORGANIZ ATION 02/08/2023 [facility] Reason for Visit (unrecogniz ed section and content) Specialty Diagnoses / Procedures Referred By Contac t Referred To Contact Diagnoses Neuroendocrine cancer Procedures NUC PET NEUROENDOCRINE CHG NUC THERAPY HYPERTHYROID SUBSEQUENT Charles Benavides MD [address] [phone] Referral ID Status Reason Start Date Expiration Date V isits Requested Visits Authorized [id number] Pending Review 05/17/2022 06/11/2023 1 1 Reason Comments New Patient Specialty Diagnoses / Procedures Referred By Contac t Referred To Contact Surgical Oncology Diagnoses Neuroendocrine cancer Charles Benavides MD [address] [phone] Referral ID Status Reason Start Date Expiration Date V isits Requested Visits Authorized [id number] Pending Review 06/07/2022 07/02/2023 1 1 Specialty Diagnoses / Procedures Referred By Contac t Referred To Contact Diagnoses Pancreatic mass Procedures UPPER EUS PA EGD INTRMURAL US NEEDLE ASPIRATE/BIOPSY ESOPHAGS Gay Spear, YARN TEXTURE MACHINE OPERATOR-MUSHROOM LABORER [address] [place] [address] Referral ID Status Reason Start Date Expiration Date V isits Requested Visits Authorized [id number] New Request 06/28/2022 07/23/2023 1 1 Reason Comments Follow-up Specialty Diagnoses / Procedures Referred By Onesimo silva Referred To Contact Diagnoses Primary pancreatic neuroendocrine tumor Procedures MRI ABDOMEN WITH AND WITHOUT CONTRAST PA MRI, ABDOMEN, Gay Enciso, YARN TEXTURE MACHINE OPERATOR-MUSHROOM LABORER, DNP [address] [place] [address] Referral ID Status Reason Start Date Expiration Date V isits Requested Visits Authorized [id number] New Request 10/25/2022 11/19/2023 1 1 Care Teams (unrecognized sec tion and content) [employer] Developer Relationship Specialty Start Date End Date Svetlana Casas MD [address] [place] [address] [phone] PCP - General Internal Medicine 06/26/22 Lolis Laboy, RN Registered Nurse 05/15/22 Yelitza Baker, [facility] [address] [place] [address] [phone] Oncologist Hematology 05/15/22 [employer] Developer Relationship Specialty Start Date End Date Svetlana Casas MD [address] [place] [address] [phone] PCP - General Internal Medicine 06/26/22 Lolis Laboy, RN Registered Nurse 05/15/22 Yelitza Baker, [address] [phone]- Oncologist Hematology 05/15/22 [employer] Developer Relationship Specialty Start Date End Date Svetlana Casas MD [address] [place] [phone] PCP - General Internal Medicine 06/26/22 Lolis Laboy, RN Registered Nurse 05/15/22 Yelitza Baker [facility] [address] [place], [place] [phone] Oncologist Hematology 05/15/22 [employer] Developer Relationship Specialty Start Date End Date Svetlana Casas MD [address] [facility] [address] [place] [phone] PCP - General Internal Medicine 06/26/22 Lolis Laboy RN Registered Nurse 05/15/22 Yelitza Baker [facility] [address] [place], [place] [phone] Oncologist Hematology 05/15/22 FOR RECORDS PERTAINING TO [...] BE BASED ON THE PRIMARY CLINICAL RECORDS. [facility]. provides no warranty or guarantee of the accuracy or completeness of information in this document.
--- NOTE | 2023-06-29 15:40 | EDS_ITS ---
HPI <TIO Lofton - Last Filed: 06/29/23 16:12> History of Present Illness Chief Complaint: Laceration Narrative Narrative: Patient is a 77-year-old male with history of kidney disease, hypertension, diabetes who presents the emergency department after sustaining a left index finger laceration as well as left pinky laceration. Patient was working with a saw, he was finished, thought he turned this off however he did not. Patient is unaware of his last tetanus vaccination. Patient was able to flex and extend the finger, however secondary to the bleeding he is here for evaluation. [facility] <TIO Lofton - Last Filed: 06/29/23 16:12> [facility] Medical History Abnormal EKG Acute renal failure Altered mental status Ankle fracture Anxiety and depression Arthritis Atherosclerotic heart disease of [place] coronary artery without angina pectoris Chronic back pain CKD (chronic kidney disease), stage III Depression Dermatitis Diverticulitis large intestine Essential hypertension Flu vaccine need Fracture of right distal radius Hearing loss Heart disease History of pulmonary embolism Hyperkalemia Long-term use of high-risk medication Memory impairment Mixed hyperlipidemia Numbness of left foot Orthostatic hypotension Pancreas neoplasm Peripheral arterial occlusive disease Preoperative evaluation to rule out surgical contraindication Right wrist pain Scabies Severe sepsis with acute organ dysfunction Syncope and collapse Toe pain Type II diabetes mellitus Urticaria Vision problems Home Medications lancets #100 ea 08/14/21 [Rx Last Taken Unknown] aspirin 81 mg capsule 81 mg PO DAILY 30 days #30 caps 03/25/22 [Rx Last Taken Unknown] blood sugar diagnostic (Contour Next Test Strips) 03/25/22 [History Last Taken Unknown] docusate sodium 50 mg capsule 50 mg PO DAILY 04/09/22 [History Last Taken Unknown] duloxetine 60 mg capsule,delayed release 60 mg PO DAILY mental health 04/09/22 [History Last Taken Unknown] hydroxyzine pamoate 25 mg capsule 25 mg PO QHS 04/09/22 [History Last Taken Unknown] tizanidine 4 mg capsule 4 mg PO QHS PRN 04/09/22 [History Last Taken Unknown] trazodone 100 mg tablet 50 mg PO QHS 05/02/22 [History Last Taken Unknown] gabapentin 100 mg capsule 100 mg PO BID nerve pain #180 caps 07/16/22 [Rx Last Taken Unknown] omeprazole 20 mg capsule,delayed release 20 mg PO DAILY acid reflux #90 caps 08/15/22 [Rx Last Taken Unknown] permethrin 5 % topical cream 1 applic topical Q14D 2 doses #60 grams 10/19/22 [Rx Last Taken Unknown] memantine 5 mg tablet (Namenda) 5 mg PO DAILY #30 tabs 05/13/23 [Rx Last Taken Unknown] Lantus Solostar U-100 Insulin 100 unit/mL (3 mL) subcutaneous pen (insulin glargine) 18 unit (0.18 mL) subcut DAILY 3 months #16.2 mL 05/22/23 [Rx Last Taken Unknown] amlodipine 10 mg tablet 10 mg PO DAILY #90 tabs 05/22/23 [Rx Last Taken Unknown] atorvastatin 80 mg tablet 80 mg PO QHS cholesterol lowering #90 tabs 05/22/23 [Rx Last Taken Unknown] glimepiride 4 mg tablet See Rx Instructions .Route .COMPLEX #180 tabs 05/22/23 [Rx Last Taken Unknown] levothyroxine 25 mcg tablet 25 mcg PO DAILY #30 tabs 05/22/23 [Rx Last Taken Unknown] blood sugar diagnostic (Contour Next Test Strips) #100 ea 06/24/23 [Rx Last Taken Unknown] Allergy/AdvReac Type Severity Reaction Status Date / Time iodine Allergy Unknown convulsions Verified 06/29/23 14:14 codeine Allergy Itching Verified 06/29/23 14:14 Family History Father FH: congestive heart failure Colon cancer Diabetes Myocardial infarction Mother FH: aneurysm Arthritis rheumatoid Brother CVA (cerebral vascular accident) Diabetes Brother Cancer, Onset Age: 52 unknown diagnosis, possibly lung (smoker) History of partial colectomy Sister Diabetes High cholesterol Surgical History History of appendectomy history of back fusion History of cholecystectomy History of hernia repair History of laminectomy History of right shoulder replacement History of shoulder replacement Postsurgical percutaneous transluminal coronary angioplasty (PTCA) status Presence of stent in coronary artery (~12/07/15) Status post placement of implantable loop recorder Social History household members: spouse housing: house Smoking Status: Former smoker how long ago did patient quit smokin alcohol intake: never substance use type: does not use diet: diabetic caffeine: Yes Type: coffee what type of physical activity do you participate in: none frequency: daily seatbelt use: always do you feel safe at home: Yes ROS <TIO Lofton - Last Filed: 06/29/23 16:12> ROS ED ROS Narrative Constitutional: Negative for fever, chills, weight loss, weakness Eyes: Negative for vision loss, vision change, double vision ENT: Negative for any sore throat, ear pain, congestion Cardiovascular: Negative for any chest pain, tightness, palpitations Respiratory: Negative for any cough, sputum production, hemoptysis, dyspnea, dyspnea on exertion, orthopnea Gastrointestinal: Negative for any abdominal pain, nausea, vomiting, diarrhea, constipation, blood in stool, blood in vomit : Negative for any urinary frequency, dysuria, retention, blood in urine Muscle skeletal: Negative for any neck pain, back pain. Positive injury to the left index finger, left pinky Neurological: Negative for any headache, syncope, dizziness Skin: Negative for any rashes, itching, abrasions. Positive for laceration to the dorsal aspect of the left index finger Psychiatric: Negative for any depression, anxiety, stress, suicidal ideation, homicidal ideation Hematologic: Negative for any excessive bruising, easy bleeding EXAM <TIO Lofton - Last Filed: 06/29/23 16:12> Physical Exam Narrative Exam Narrative: Vital signs reviewed. HEET: Head normocephalic atraumatic, TMs clear bilaterally. Posterior pharynx is clear, moist mucous membranes. Nares clear bilaterally. Neck: Supple with no lymphadenopathy or tenderness. No signs of meningismus. Cardiac: Regular rate and rhythm no murmurs gallops or rubs, equal peripheral pulses bilaterally. Respiratory: Lungs clear to auscultation bilaterally. No chest tenderness. Abdomen: Soft, nontender, nondistended. No abdominal bruit or pulsatile masses. No hepatosplenomegaly Extremities: No peripheral edema, no signs of gross trauma or deformity. Active full range of motion of all extremities. Patient has a 4.5 cm laceration along the dorsal aspect of the left index finger, this goes across the entire back of the finger. Nailbed is intact. Patient is able to flex and extend the finger, there is no evidence of any tendon involvement. Patient also has a small avulsion like laceration to the distal tip of the left fifth finger. Neuro: Cranial nerves II through XII intact, no focal neurological deficits. Skin: Clean dry and intact with no rash, purpura, petechiae, vesicles or pustules. Backs/flank: No CVA tenderness, no midline spinal tenderness, no deformity. Psych: Normal mood and affect. No SI, HI or acute psychosis. Const Vital Signs: 06/29/23 14:14 Temperature 98.3 F Temperature Source Temporal Pulse Rate 91 Respiratory Rate 16 Blood Pressure 157/76 H Blood Pressure Mean 103 Pulse Ox 99 Oxygen Delivery Method Room Air <Dr. Beau Mario DO - Last Filed: 06/29/23 16:37> Physical Exam Const Vital Signs: 06/29/23 14:14 Temperature 98.3 F Temperature Source Temporal Pulse Rate 91 Respiratory Rate 16 Blood Pressure 157/76 H Blood Pressure Mean 103 Pulse Ox 99 Oxygen Delivery Method Room Air MDM <TIO Lofton - Last Filed: 06/29/23 16:12> MDM Radiography Diagnostic Testing: Clinical Impression(s) from Imaging Studies Hand X-Ray 06/29/23 14:53 IMPRESSION: Age consistent degenerative changes without acute fracture or suspicious osseous lesion. Foreign bodies suspected in the soft tissues volar to the middle phalanx of the index finger and adjacent to the distal phalanx of the thumb Electronically Signed: Matty Pineda MD at 15:41 EST Reading Location ID and State: [address] [place] [address] , Service support , Treatment and Re-Evaluation :: Patient appears generally well, patient appears nontoxic, vital signs are stable.Presenting to the emergency department with a laceration to the left index finger, left pinky. Patient has a 4.5 cm laceration to the dorsal aspect of the left index finger. Once the touch with lidocaine, I was able to explore, I did see the tendon that was intact. Patient is full range of motion. I did place 10 simple sutures with 4-0 Ethilon. Edges approximated nicely, sterile gloves, sterile drapes were used. Patient was placed in a finger splint. X- rays obtained of the left index finger shows no fracture or suspicious osseous lesion. I was also able to place 1 simple suture to the distal tip of the left fifth digit. There was a small 0.5 cm skin avulsion. This was done simply for bleeding. Patient had these removed in 10 to 14 days. Will follow-up ou tpatient. Placed in a finger splint for 2 weeks to make sure that the sutures remain intact. He will follow-up closely outpatient. Given wound care instructions. Given red flag signs and to return for any worsening redness, fever chills nausea vomiting. Patient stable for discharge. <Dr. Beau Mario, DO - Last Filed: 06/29/23 16:37> [facility] Narrative Medical decision making narrative: I have personally performed a face to face assessment of the patient and have re viewed the WILMER Note. I performed a substantive portion of the visit including all aspects of the following. My cee findings include: History: Patient presents with laceration to his left index finger that occurred today. Patient states he hit his finger against a table saw. Patient is unsure of his last tetanus. Patient denies any paresthesias or weakness. Patient is able to flex and extend his finger. Patient also states that his pinky finger hit the saw. Exam: Vital signs are stable. Patient is afebrile. Patient is in no acute distress. Skin is warm and dry. There is a 4.5 cm full-thickness stellate laceration over the dorsal aspect of the left index finger. There is mild gapping of the wound margins. There are no foreign bodies visualized. There is full range of motion. There is also a 0.5 cm avulsion laceration over the tip of the left fifth finger. There is no bleeding noted. There are no foreign bodies. Strength is 5/5 in flexion extension of all digits. Capillary refill is less than 2 seconds in all digits. Sensation was intact to light touch in all digits. Medical Decision Making: Differential diagnosis includes open fracture, radiopaque foreign body, and tendon laceration. X-rays of the left hand will be obtained to assess for open fracture and radiopaque foreign body. X-rays of the left hand were obtained. There are 3 views. On my independent interpretation, there is no acute fracture or radiopaque foreign body. There is mild soft tissue swelling. Radiologist also interpreted the x-rays and agrees. The wound was cleaned and irrigated with copious amounts normal saline. The left index finger was anesthetized with 1% lidocaine via digital block. Under good an esthesia the wound was closed by the WILMER under my supervision. Patient tolerated the procedure well. Dressing was applied to the left fifth finger as well. This does not need suture repair. Patient was instructed to follow-up with his primary care physician in 7 days for wound recheck and suture removal. Patient understood and was agreeable with the plan. All questions were answered. Radiography Diagnostic Testing: Clinical Impression(s) from Imaging Studies Hand X-Ray 06/29/23 14:53 IMPRESSION: Age consistent degenerative changes without acute fracture or suspicious osseous lesion. Foreign bodies suspected in the soft tissues volar to the middle phalanx of the index finger and adjacent to the distal phalanx of the thumb Electronically Signed: Matty Pineda MD at 15:41 EST Reading Location ID and State: [facility] , Service support , Discharge Plan Triage Chief Complaint: Laceration ED Midlevel Provider: Oscar Ya ED Provider: Beau Mario Dx/Rx/DC Orders Clinical Impression: Finger laceration Instructions: ED Laceration, All Closures, ED Laceration Extremity Prescriptions: No Action duloxetine 60 mg capsule,delayed release(DR/EC) 60 mg PO DAILY docusate sodium 50 mg capsule 50 mg PO DAILY hydroxyzine pamoate 25 mg capsule 25 mg PO QHS tizanidine 4 mg capsule 4 mg PO QHS PRN trazodone 100 mg tablet 50 mg PO QHS omeprazole 20 mg capsule,delayed release(DR/EC) 20 mg PO DAILY Qty: 90 3RF permethrin 5 % cream 1 applic topical Q14D Qty: 60 0RF Rx Instructions: apply second treatment 14 days after first treatment as instructed glimepiride 4 mg tablet See Rx Instructions .ROUTE .COMPLEX Qty: 180 3RF Dose Instruction: TAKE 1 TABLET TWICE DAILY FOR BLOOD SUGAR Rx Instructions: TAKE 1 TABLET TWICE DAILY FOR BLOOD SUGAR atorvastatin 80 mg tablet 80 mg PO QHS Qty: 90 3RF amlodipine 10 mg tablet 10 mg PO DAILY Qty: 90 3RF (DME) Contour Next Test Strips Strip See Rx Instructions .Route Rx Instructions: 2 TIMES DAILY aspirin 81 mg capsule 81 mg PO DAILY 30 Days Qty: 30 0RF (DME) lancets Misc See Rx Instructions .ROUTE .MEDSUPPLY Qty: 100 3RF Rx Instructions: As directed 3 times a day gabapentin 100 mg capsule 100 mg PO BID Qty: 180 3RF memantine [Namenda] 5 mg tablet 5 mg PO DAILY Qty: 30 1RF levothyroxine 25 mcg tablet 25 mcg PO DAILY Qty: 30 2RF insulin glargine [Lantus Solostar U-100 Insulin] 100 unit/mL (3 mL) insulin pen 18 unit subcut DAILY 90 Days Qty: 16.2 2RF (DME) Contour Next Test Strips Strip See Rx Instructions .ROUTE .COMPLEX Qty: 100 3RF Dose Instruction: USE TO CHECK BLOOD SUGAR TWICE DAILY. Rx Instructions: USE TO CHECK BLOOD SUGAR TWICE DAILY. Primary Care Provider: Svetlana Casas Referrals: Svetlana Casas MD [Primary Care Provider] - Activity Restrictions/Additional Instructions: Keep this dressing on for 24 hours. You may take it off to clean, then put the finger splint back on. Please return for any worsening redness, fever chills nausea or vomiting. You need to have these removed in 10-12 at most 2 weeks. Return for any worsening symptoms. Disposition Disposition: Home, Self Care
[2023-06-29 16:22] VITALS: BP 135/81; PULSE 81; RESP 16; TEMP 36.8; O2SAT 98
== END 2023-06-29 16:23 | disposition home or self-care (01) ==
PROVIDERS: Emergency Provider Emergency Medicine; PCP Internal Medicine; Visit Provider Emergency Medicine
DX: S61.211A Laceration without foreign body of left index finger without damage to nail, initial encounter (principal); E11.22 Type 2 diabetes mellitus with diabetic chronic kidney disease; N18.30 Chronic kidney disease, stage 3 unspecified; I12.9 Hypertensive chronic kidney disease with stage 1 through stage 4 chronic kidney disease, or unspecified chronic kidney disease; I25.10 Atherosclerotic heart disease of native coronary artery without angina pectoris; X58.XXXA Exposure to other specified factors, initial encounter; Z95.5 Presence of coronary angioplasty implant and graft; Z87.891 Personal history of nicotine dependence
CPT/HCPCS: 73130; 90715; 99283

== ENCOUNTER → 2023-08-21 | Outpatient (CLI) | payer MEDICARE, OTHER, SELFPAY ==
[2023-08-21 15:37] LABS: Absolute Lymphocyte Count 1.89 X10^3/uL (0.83-4.51); Absolute Neutrophil Count 3.5 X10^3/uL (2.0-7.7); Basophil# 0.06 X10^3/uL; Eosinophil# 0.08 X10^3/uL; Eosinophils% 1.3 % (0-5); Hematocrit 39.4 % (40-54); Hemoglobin 12.1 g/dL (13.0-16.5); Lymphocyte # 1.89 X10^3/ul (0.83-4.51); Lymphocyte % 31.6 % (19-41); Mean Corp Hgb Conc 30.7 g/dL (32-36); Mean Corpuscular Hgb 27.8 pg (27.0-32.0); Mean Corpuscular Volume 90.6 fL (80-94); Mean Platelet Vol. 10.2 fl (6.2-12.0); Monocyte# 0.44 X10^3/uL; Monocyte% 7.3 % (0-10); NRBC Flagged by Analyzer 0 % (0-5); Neutrophil % 58.5 % (47-70); Platelet Count 235 K/mm3 (150-450); RBC Distribution Width CV 14.7 % (11.6-14.6); RBC Distribution Width SD 49.3 fl (35.1-43.9); Red Blood Count 4.35 M/mm3 (4.6-6.2)
[2023-08-21 16:22] LABS: ALB/GLOB Ratio 1.1 RATIO (0.9-2.4); AST(SGOT) 33 U/L (15-37); Alanine Aminotransfer ALT/SGPT 39 U/L (16-61); Albumin, Serum 3.8 g/dL (3.2-5.0); Alkaline Phosphatase 108 U/L (45-117); Anion Gap 5 (5-15); BUN 19 mg/dL (7-18); BUN/Creat Ratio 10.3 RATIO (10-20); Calcium,Total 9.3 mg/dL (8.5-10.1); Chloride 110 mmol/L (98-107); Creatinine, Serum 1.84 mg/dL (0.70-1.30); EST Glomerular Filtration Rate 38 mL/min (>60); Est Glom Filt Rate - Afr Amer 46 mL/min (>60); Globulin 3.5 g/dL (2.2-4.2); Glucose 179 mg/dL (74-106); Potassium 4.7 mmol/L (3.5-5.1); Protein, Total 7.3 g/dL (6.4-8.2); Sodium Level 139 mmol/L (136-145); T4 Free Direct 0.64 ng/dL (0.76-1.46); Thyroid Stim Hormone (TSH) 4.36 uIU/mL (0.358-3.74)
[2023-08-21 16:59] LABS: Microalbumin:Creatinine Ratio 652.5 mg/g CRE (<30 mg/g CRE)
== END | disposition home or self-care (01) ==
LOC: BIMLAB 12:00
PROVIDERS: PCP Internal Medicine; Visit Provider Internal Medicine
DX: E03.9 Hypothyroidism, unspecified (principal); E11.8 Type 2 diabetes mellitus with unspecified complications; I10 Essential (primary) hypertension
CPT/HCPCS: 36415; 80053; 82043; 82570; 84439; 84443; 85025

== ENCOUNTER → 2023-11-27 | Outpatient (CLI) | payer MEDICARE, OTHER, SELFPAY ==
[2023-11-27 16:55] LABS: Anion Gap 7 (5-15); BUN 30 mg/dL (7-18); Calcium,Total 9.7 mg/dL (8.5-10.1); Chloride 107 mmol/L (98-107); Creatinine, Serum 1.76 mg/dL (0.70-1.30); EST Glomerular Filtration Rate 40 mL/min (>60); Est Glom Filt Rate - Afr Amer 49 mL/min (>60); Glucose 81 mg/dL (74-106); Sodium Level 141 mmol/L (136-145)
[2023-11-27 17:06] LABS: AST(SGOT) 32 U/L (15-37); Alanine Aminotransfer ALT/SGPT 41 U/L (16-61); Albumin, Serum 3.9 g/dL (3.2-5.0); Alkaline Phosphatase 120 U/L (45-117); Cholesterol 144 mg/dL (200); Globulin 3.2 g/dL (2.2-4.2); High Density Lipoprotein 56 mg/dL; Protein, Total 7.1 g/dL (6.4-8.2); Triglycerides 165 mg/dL; Very Low Density Lipoprotein 33 mg/dL (5-40)
== END | disposition home or self-care (01) ==
LOC: BIMLAB 16:01
PROVIDERS: Physician Assistant Medical; PCP Internal Medicine; Referring Provider Internal Medicine; Visit Provider Internal Medicine
DX: E11.8 Type 2 diabetes mellitus with unspecified complications (principal); I10 Essential (primary) hypertension; E78.2 Mixed hyperlipidemia
CPT/HCPCS: 36415; 80048; 80061; 80076

== ENCOUNTER → 2024-02-11 | Outpatient (CLI) | payer MEDICARE, OTHER, SELFPAY ==
[2024-02-11 17:04] LABS: Amphetamine Urine VISTA NEGATIVE (<1000 ng/mL); Barbiturate Urine VISTA NEGATIVE (< 200 ng/mL); Benzodiazepine Urine VISTA NEGATIVE (< 200 ng/mL); Cocaine Urine VISTA NEGATIVE (< 300 ng/mL); Ecstacy Urine VISTA POSITIVE (< 500 ng/mL); Methadone Urine VISTA NEGATIVE (< 300 ng/mL); PCP Urine VISTA NEGATIVE (< 25 ng/mL); THC Urine VISTA NEGATIVE (< 50 ng/mL); Vista UDS pH Range 5
== END | disposition home or self-care (01) ==
PROVIDERS: PCP Internal Medicine; Referring Provider Anesthesiology Pain Medicine; Visit Provider Anesthesiology Pain Medicine
DX: F11.20 Opioid dependence, uncomplicated (principal)
CPT/HCPCS: 80307

== ENCOUNTER → 2024-03-04 | Outpatient (CLI) | payer MEDICARE, OTHER, SELFPAY ==
[2024-03-04 17:27] LABS: ALB/GLOB Ratio 1.3 RATIO (0.9-2.4); AST(SGOT) 33 U/L (15-37); Alanine Aminotransfer ALT/SGPT 40 U/L (16-61); Albumin, Serum 4.2 g/dL (3.2-5.0); Alkaline Phosphatase 105 U/L (45-117); Anion Gap 6 (5-15); BUN 32 mg/dL (7-18); BUN/Creat Ratio 15.7 RATIO (10-20); Calcium,Total 9.9 mg/dL (8.5-10.1); Chloride 108 mmol/L (98-107); Creatinine, Serum 2.04 mg/dL (0.70-1.30); EST Glomerular Filtration Rate 34 mL/min (>60); Est Glom Filt Rate - Afr Amer 41 mL/min (>60); Globulin 3.3 g/dL (2.2-4.2); Glucose 127 mg/dL (74-106); Potassium 5.1 mmol/L (3.5-5.1); Protein, Total 7.5 g/dL (6.4-8.2); Sodium Level 140 mmol/L (136-145)
== END | disposition home or self-care (01) ==
LOC: BIMLAB 16:15
PROVIDERS: PCP Internal Medicine; Referring Provider Internal Medicine; Visit Provider Internal Medicine
DX: E11.8 Type 2 diabetes mellitus with unspecified complications (principal)
CPT/HCPCS: 36415; 80053

== ENCOUNTER → 2024-03-13 | Outpatient (CLI) | payer MEDICARE, OTHER, SELFPAY ==
[2024-03-13 17:46] LABS: Microalbumin:Creatinine Ratio 424.6 mg/g CRE (<30 mg/g CRE)
== END | disposition home or self-care (01) ==
LOC: LABSPEC 15:26
PROVIDERS: PCP Internal Medicine; Visit Provider Internal Medicine Nephrology
DX: E11.22 Type 2 diabetes mellitus with diabetic chronic kidney disease (principal); N18.31 Chronic kidney disease, stage 3a; Z79.899 Other long term (current) drug therapy
CPT/HCPCS: 82043; 82570; 87086; 87088

== ENCOUNTER → 2024-05-16 | Outpatient (CLI) | payer MEDICARE, OTHER, SELFPAY ==
[2024-05-16 12:15] LABS: Anion Gap 7 (5-15); BUN 26 mg/dL (7-18); BUN/Creat Ratio 13.3 RATIO (10-20); Calcium,Total 8.9 mg/dL (8.5-10.1); Chloride 106 mmol/L (98-107); Creatinine, Serum 1.95 mg/dL (0.70-1.30); EST Glomerular Filtration Rate 36 mL/min (>60); Est Glom Filt Rate - Afr Amer 43 mL/min (>60); Glucose 267 mg/dL (74-106); Potassium 4.4 mmol/L (3.5-5.1); Sodium Level 138 mmol/L (136-145)
== END | disposition home or self-care (01) ==
PROVIDERS: PCP Internal Medicine; Referring Provider Internal Medicine Nephrology; Visit Provider Internal Medicine Nephrology
DX: N18.31 Chronic kidney disease, stage 3a (principal)

== ENCOUNTER → 2024-05-18 | Outpatient (CLI) | payer MEDICARE, OTHER, SELFPAY ==
[2024-05-18 17:11] LABS: Protein, Urine (Random) 90.2 mg/dL (<11.9); Protein:Creat Ratio 1420 mg/g CRE (0-200)
== END | disposition home or self-care (01) ==
PROVIDERS: PCP Internal Medicine; Visit Provider Internal Medicine Nephrology
DX: N18.31 Chronic kidney disease, stage 3a (principal); Z79.899 Other long term (current) drug therapy
CPT/HCPCS: 82570; 84156; 87086

== ENCOUNTER → 2024-06-04 | Outpatient (CLI) | payer MEDICARE, OTHER, SELFPAY ==
--- NOTE | 2024-06-04 06:48 | MRI_ITS ---
PROCEDURE: MRI ABD WITH AND W/O CONTRAST REASON FOR EXAM: Neuroendocrine carcinoma. TECHNIQUE: Multiplanar, multisequence MRI of the upper abdomen without and with intravenous gadolinium-based contrast. CONTRAST: Clariscan 15 cc intravenous COMPARISON: MRI abdomen April 2022 FINDINGS: Liver: Normal hepatic signal. No hepatic mass. Normal enhancement. Biliary: Biliary dilatation, common hepatic duct diameter is 14 mm, unchanged from April 2022. This is likely physiologic dilatation in the setting of prior cholecystectomy. No choledocholithiasis. Pancreas: T2 hypointense mildly enhancing pancreatic tail mass measuring 16 x 13 mm, unchanged from April 2022. Background of pancreatic parenchymal atrophy is noted. Approximately a dozen scattered cystic lesions throughout the entire pancreas, largest at the distal body measuring 15 x 9 mm. This particular cyst measured 11 x 5 mm on April 2022 reference. Some of the other cysts have increased by few mm and others are stable. 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 There are no high-risk stigmata of any of these lesions. Main pancreatic duct is normal. Spleen: Normal size, signal intensities and contrast enhancement. Adrenals: Normal. Kidneys: A few scattered renal cysts measuring up to 15 mm on the left. No solid renal mass or hydronephrosis.. Peritoneum / Retroperitoneum: No ascites. Lymph Nodes: No upper abdominal lymphadenopathy. Major Vessels: Normal caliber of the abdominal aorta and IVC. Bones: Posterior fusion hardware of the upper lumbar spine. No marrow lesions. MRI/MRI Abd WITH and W/O Contrast IMPRESSION: 1. Small 1.6 cm pancreatic tail lesion with mild enhancement, unchanged from J an2022 suggesting a benign indolent neuroendocrine tumor. 2. 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 Some of these have increased by few mm from April 2022 and others are stable. No high-risk stigmata to suggest malignant transformation. Another follow-up MRCP recommended in 6-12 months. No main ductal dilatation. Reading Location: [facility]
--- NOTE | 2024-06-04 06:48 | MRI_ITS ---
PROCEDURE: MRI of the pelvis without and with intravenous contrast. REASON FOR EXAM: Surveillance for neuroendocrine pancreatic tumor. TECHNIQUE: Multiplanar, multisequence MRI images of the pelvis were obtained without and with intravenous contrast. 15 cc Clariscan gadolinium IV contrast was administered. COMPARISON: None available. FINDINGS: Mild degenerative changes in the lumbar spine. There is magnetic susceptibility artifact from surgical hardware in the lumbar spine at L2 and L3. No abnormal marrow replacing lesion of the lower lumbar spine, pelvis, or proximal femurs. Mild degenerative change right hip joint, to a moderate degree on the left. There is some mild increased T2 signal and enhancement involving the origin of the left hamstring complex, suggesting mild strain or injury. No sizable greater trochanteric bursal fluid collection. The distal attachments of the gluteus medius/minimus tendons, as well as the iliopsoas tendons, appear intact. The included lower abdominal wall is unremarkable. Included bowel segments grossly unremarkable. The prostate is mildly enlarged measuring 5.5 cm transverse. No focal abnormality of the urinary bladder. No pelvic mass or adenopathy. Included bowel segments show no specific finding. Scattered colonic diverticula of the sigmoid colon. MRI/Pelvis W/WO Contrast IMPRESSION: No findings of malignancy or metastatic disease in the pelvis. Some heterogeneous increased T2 signal and enhancement of the origin of the lef t hamstring complex, suggesting mild strain or injury. Sigmoid diverticulosis. Mildly enlarged prostate gland. Suggest correlation with PSA values. Central defect of the prostate gland may be due to prior TURP procedure. Reading Location: [facility]
[2024-06-04 07:55] LABS: CREATININE FINGERSTICK 1.4 mg/dL (0.70-1.30)
== END | disposition home or self-care (01) ==
PROVIDERS: PCP Internal Medicine
DX: D3A.8 Other benign neuroendocrine tumors (principal)
CPT/HCPCS: 72197; 74183; A9575; A4216

== ENCOUNTER → 2024-06-29 | Outpatient (CLI) | payer MEDICARE, OTHER, SELFPAY ==
[2024-06-29 18:02] LABS: Hematocrit 42.2 % (40-54); Hemoglobin 13.5 g/dL (13.0-16.5); Mean Corpuscular Hgb 29.9 pg (27.0-32.0); Mean Corpuscular Volume 93.4 fL (80-94); Mean Platelet Vol. 10.1 fl (6.2-12.0); Platelet Count 267 K/mm3 (150-450); RBC Distribution Width CV 12.9 % (11.6-14.6); RBC Distribution Width SD 43.9 fl (35.1-43.9); Red Blood Count 4.52 M/mm3 (4.6-6.2); White Blood Count 8.8 K/mm3 (4.4-11.0)
[2024-06-29 21:19] LABS: ALB/GLOB Ratio 1.5 RATIO (0.9-2.4); AST(SGOT) 47 U/L (<=37); Alanine Aminotransfer ALT/SGPT 55 U/L (<=46); Albumin, Serum 4.7 g/dL (3.4-4.8); Alkaline Phosphatase 128 U/L (40-129); BUN 29 mg/dL (4-19); BUN/Creat Ratio 16.3 RATIO (10-20); Creatinine, Serum 1.76 mg/dL (0.70-1.20); EST Glomerular Filtration Rate 39 (>60); Globulin 3.2 g/dL (2.2-4.2); Glucose 267 mg/dL (70-99); Protein, Total 7.8 g/dL (5.9-8.4)
[2024-06-29 21:49] LABS: Vitamin B12 > 4000 pg/mL (180-914)
[2024-06-29 22:18] LABS: Anion Gap 16 (5-15); Calcium,Total 10.1 mg/dL (7.6-11.0); Carbon Dioxide 21.6 mmol/L (21.0-32.0); Chloride 100 mmol/L (98-108); Potassium 4.3 mmol/L (3.3-5.1); Sodium Level 138 mmol/L (133-145)
[2024-07-03 16:08] LABS: Folate, RBC (Hct) Test 40.9 % (37.5-51.0); Folates, RBC Test 1381 ng/mL (>498); Free Kappa Light Chains 51.5 mg/L (3.3-19.4); Free Lambda Light Chains 41.6 mg/L (5.7-26.3); Vitamin B1, Thiamine 275.8 nmol/L (66.5-200.0)
== END | disposition home or self-care (01) ==
LOC: MTLAB 16:08
PROVIDERS: PCP Internal Medicine; Referring Provider Psychiatry & Neurology Neurology; Visit Provider Psychiatry & Neurology Neurology
DX: F03.90 Unspecified dementia, unspecified severity, without behavioral disturbance, psychotic disturbance, mood disturbance, and anxiety (principal); E11.9 Type 2 diabetes mellitus without complications
CPT/HCPCS: 36415; 80053; 82607; 82747; 83883; 84425; 84443; 85014; 85027

== ENCOUNTER → 2024-07-25 | Outpatient (CLI) | payer MEDICARE, OTHER, SELFPAY ==
--- NOTE | 2024-07-25 09:10 | MRI_ITS ---
PROCEDURE: BRAIN WITHOUT CONTRAST N/A REASON FOR EXAM: DEMENTIA Hearing loss and memory loss TECHNIQUE: Brain MRI without and with intravenous contrast with additional dedicated imaging of the IACs. CONTRAST: None COMPARISON: CT brain 04/26/2020 FINDINGS: Brain: no evidence of mass effect, intra-axial or extra-axial hemorrhage, or mass no restricted diffusion. Loculated cystic lesion the base of the left middle cranial fossa may represent an arachnoid cyst, or encephalomalacia versus other pathology/etiology. Stable since 2019. Wallerian degeneration of nearby white matter tracts. Periventricular deep white matter scattered foci of T2/FLAIR hyperintensity consistent with chronic microangiopathy (small-vessel ischemic disease). Diffusion weighted images: No restricted diffusion. Ventricles: Prominent ventricles and sulci indicate age-related involution. Major Intracranial Vessels: Anterior vessels and vertebrobasilar system demonstrate normal flow voids. Sinuses: Mucosal thickening in the maxillary sinuses and scattered other sinuses Mastoids: No effusions IACs: Symmetric. Not expansile. Unremarkable. Cranial Nerves VII and VIII: Unremarkable Cochlea, Vestibule and Semicircular Canals: Unremarkable Middle Ear Cavities: No effusion detected. Unremarkable MRI/Brain without Contrast IMPRESSION: No acute process Encephalomalacia versus arachnoid cyst versus other process in the anterior inf erior left middle cranial fossa. Chronic microangiopathy. Age related involutional change. Reading Location[facility]
== END | disposition home or self-care (01) ==
LOC: MRI 08:08
PROVIDERS: PCP Internal Medicine; Referring Provider Psychiatry & Neurology Neurology; Visit Provider Psychiatry & Neurology Neurology
DX: F03.90 Unspecified dementia, unspecified severity, without behavioral disturbance, psychotic disturbance, mood disturbance, and anxiety (principal)
CPT/HCPCS: 70551

== ENCOUNTER → 2024-09-22 | Outpatient (CLI) | payer MEDICARE, OTHER, SELFPAY ==
--- NOTE | 2024-09-22 13:26 | RAD_ITS ---
PROCEDURE: RIBS UNI MIN 3V W/PA CHEST 09/22/2024 REASON FOR EXAM: LEFT RIB PAIN TECHNIQUE: Frontal and 4 views left ribs. COMPARISON: None available FINDINGS: The lungs appear clear. Pulmonary vascularity appears within limits. The cardiac and mediastinal contours appear within limits. Suggestion of coronary stent or heavy calcification. Partially imaged right shoulder replacement noted. Partially imaged lumbar hardware. Posterolateral left 6th through 10th rib fractures with apparent callus formation. No acute appearing rib fracture identified. Ovoid sclerotic focus anterior left 6th rib nonspecific. RAD/Ribs Uni Min 3V w/PA Chest IMPRESSION: No acute appearing rib fracture identified. Reading Location: [id number]
[2024-09-22 16:15] LABS: ALB/GLOB Ratio 1.6 RATIO (0.9-2.4); AST(SGOT) 59 U/L (<=37); Alanine Aminotransfer ALT/SGPT 53 U/L (<=46); Albumin, Serum 4.6 g/dL (3.4-4.8); Alkaline Phosphatase 113 U/L (40-129); Anion Gap 14 (5-15); BUN 32 mg/dL (4-19); BUN/Creat Ratio 15.3 RATIO (10-20); Calcium,Total 9.8 mg/dL (7.6-11.0); Carbon Dioxide 22.6 mmol/L (21.0-32.0); Chloride 101 mmol/L (98-108); Creatinine, Serum 2.07 mg/dL (0.70-1.20); EST Glomerular Filtration Rate 32 (>60); Globulin 2.8 g/dL (2.2-4.2); Glucose 181 mg/dL (70-99); PSA,Total - Annual Screen 1.98 ng/mL (0.02-4.00); Potassium 4.8 mmol/L (3.3-5.1); Protein, Total 7.4 g/dL (5.9-8.4); Sodium Level 137 mmol/L (133-145); Total Bilirubin 0.33 mg/dL (0.00-1.30)
[2024-09-23 13:51] LABS: Mucous, Urine 0 SEEN /hpf (<or=2+)
[2024-09-23 21:16] LABS: Color, Urine Yellow (Yellow); Glucose, Dipstick Normal (Normal); Ketone-Dipstick 5 mg/dl (Negative); Leukocyte Esterase-Dipstick Negative /ul (Negative); Nitrite-Dipstick Negative (Negative); Occult Blood-Urine Negative /ul (Negative); Protein-Dipstick 100 mg/dl (Negative); Urine Bilirubin Dipstick Negative (Negative); Urine Clarity Clear (Clear); Urine Urobilinogen Normal (Normal); Urine pH 6.5 (5.0 - 8.0)
[2024-09-23 21:44] LABS: White Blood Cells 0-5 SEEN /hpf (0-5)
[2024-09-23 21:45] LABS: Bacteria RARE /hpf (None Seen); Squamous Epithelial Cells - UA 0-5 SEEN /hpf (0-5)
== END | disposition home or self-care (01) ==
PROVIDERS: Psychiatry & Neurology Neurology; PCP Internal Medicine; Referring Provider Internal Medicine; Visit Provider Internal Medicine
DX: E03.9 Hypothyroidism, unspecified (principal); Z12.5 Encounter for screening for malignant neoplasm of prostate; G62.9 Polyneuropathy, unspecified; R07.81 Pleurodynia
CPT/HCPCS: 36415; 71101; 80053; 81001; 82784; 84153; 84165; 84439; 84443; 86334; 86335; G0103

== ENCOUNTER → 2024-09-23 | Outpatient (CLI) | payer MEDICARE, OTHER, SELFPAY | END | disposition home or self-care (01) | LOC: MTLAB 13:38 | PROVIDERS: PCP Internal Medicine; Referring Provider Internal Medicine; Visit Provider Internal Medicine | DX: Z00.00 Encounter for general adult medical examination without abnormal findings (principal) ==

== ENCOUNTER → 2024-09-30 | Outpatient (CLI) | payer MEDICARE, OTHER, SELFPAY ==
[2024-09-30 10:35] LABS: Amphetamine Urine NEGATIVE (<1000 ng/mL); Barbiturate Urine NEGATIVE (< 200 ng/mL); Benzodiazepine Urine NEGATIVE (< 200 ng/mL); Buprenorphine Urine NEGATIVE (< 200 ng/mL); Cocaine Urine NEGATIVE (< 300 ng/mL); Fentanyl, Urine NEGATIVE; Methadone Urine NEGATIVE (< 300 ng/mL); Opiates Urine PRESUMPTIVE POSITIVE (< 300 ng/mL); Oxycodone, Urine NEGATIVE (< 100 ng/mL); PCP Urine NEGATIVE (< 25 ng/mL); THC Urine NEGATIVE (< 50 ng/mL)
== END | disposition home or self-care (01) ==
LOC: LAB 09:22
PROVIDERS: PCP Internal Medicine; Referring Provider Anesthesiology Pain Medicine; Visit Provider Anesthesiology Pain Medicine
DX: F11.20 Opioid dependence, uncomplicated (principal)
CPT/HCPCS: 80307

== ENCOUNTER → 2024-11-02 | Outpatient (CLI) | payer MEDICARE, OTHER, SELFPAY | END | disposition home or self-care (01) | PROVIDERS: PCP Internal Medicine; Referring Provider Internal Medicine; Visit Provider Internal Medicine | DX: E03.9 Hypothyroidism, unspecified (principal) | CPT/HCPCS: 36415; 84439; 84443 ==

== ENCOUNTER → 2024-12-17 | Outpatient (CLI) | payer MEDICARE, OTHER, SELFPAY | END | disposition home or self-care (01) | LOC: LAB 15:32 | PROVIDERS: PCP Internal Medicine; Referring Provider Internal Medicine; Visit Provider Internal Medicine | DX: E03.9 Hypothyroidism, unspecified (principal) | CPT/HCPCS: 36415; 84439; 84443 ==

== ENCOUNTER → 2024-12-21 | Outpatient (CLI) | payer MEDICARE, OTHER, SELFPAY ==
[2024-12-23 11:08] LABS: Albumin 4.0 g/dL (2.9-4.4); Gamma Globulin 0.9 g/dL (0.4-1.8); Immunoglobulin A 180 mg/dL (61-437); Immunoglobulin G 835 mg/dL (603-1613); Immunoglobulin M 106 mg/dL (15-143); PROEL- TOTAL PROTEIN 7.1 g/dL (6.0-8.5)
== END | disposition home or self-care (01) ==
LOC: MTLAB 09:12
PROVIDERS: PCP Internal Medicine; Referring Provider Psychiatry & Neurology Neurology; Visit Provider Psychiatry & Neurology Neurology
DX: G62.9 Polyneuropathy, unspecified (principal)
CPT/HCPCS: 36415; 82784; 84165; 86334

== ENCOUNTER 2025-01-03 22:34 | Emergency (ER) | payer MEDICARE, OTHER, SELFPAY ==
[2025-01-03 22:34] VITALS: BP 152/82; PULSE 71; RESP 17; TEMP 36.6; O2SAT 100; BMI 23.8
--- NOTE | 2025-01-03 22:35 | EKG12_ITS ---
Test Reason : CP Blood Pressure : */* mmHG Vent. Rate : 69 BPM Atrial Rate : 69 BPM P-R Int : 144 ms QRS Dur : 78 ms QT Int : 412 ms P-R-T Axes : 29 34 66 degrees QTcB Int : 441 ms Sinus rhythm with Premature atrial complexes Nonspecific ST changes in inferior leads Abnormal ECG Confirmed by Adolph Maza ([id number]), staff editor RENATE MONTOYA ([id number]) on 01/04/2025 8:43:32 AM Referred By: CAPO Confirmed By: Adolph Maza
--- NOTE | 2025-01-03 23:05 | RAD_ITS ---
PROCEDURE: CHEST PA AND LATERAL 01/03/2025 REASON FOR EXAM: CHEST PAIN TECHNIQUE: Procedure Code: RADCXR Modality: DX Procedure: CHEST PA AND LATERAL COMPARISON: 09/22/2024 FINDINGS: Hardware: None. Heart: The heart size is normal. Mediastinum: The mediastinal contour is unremarkable. Lungs: The lungs are clear. Bones: No acute fractures. Right shoulder arthroplasty. RAD/Chest PA and Lateral IMPRESSION: NO ACUTE FINDINGS. Reading Location[facility]
[2025-01-03 23:06] LABS: Hematocrit 36.4 % (40-54); Hemoglobin 12.1 g/dL (13.0-16.5); Immature Granulocytes Count 0.040 X10^3/uL (0.0-0.0); Mean Corp Hgb Conc 33.2 g/dL (32-36); Mean Corpuscular Volume 88.3 fL (80-94); Mean Platelet Vol. 9.5 fl (6.2-12.0); NRBC Flagged by Analyzer 0 % (0-5); Platelet Count 196 K/mm3 (150-450); RBC Distribution Width CV 13.9 % (11.6-14.6); RBC Distribution Width SD 45.1 fl (35.1-43.9); Red Blood Count 4.12 M/mm3 (4.6-6.2); White Blood Count 8.0 K/mm3 (4.4-11.0)
--- NOTE | 2025-01-03 23:13 | EDS_ITS ---
HPI History of Present Illness Chief Complaint: Chest Pain Informant: patient and EMS Narrative Narrative: Patient is a 79-year-old male with past medical history of hypertension hyperlipidemia hypothyroidism and [id number] diabetes. He states that today roughly around 9 PM he noticed sharp left-sided chest discomfort. He states that it would occur spontaneously last for roughly 1 to 2 seconds and then resolve. He states there was no associated nausea vomiting diaphoresis or shortness of breath. He states there has been no recent trauma but reports he has had mild congestion and cough. He states he does have remote history of cardiovascular disease with stent placement and had concerned this could be presentation for a cardiac event and therefore presents to the ER for evaluation [facility] Medical History Rib pain on left side Dysuria Dementia Change in skin mole Cellulitis Memory impairment Toe pain Scabies Right wrist pain Fracture of right distal radius Pancreas neoplasm Urticaria Anxiety and depression Abnormal EKG Dermatitis Numbness of left foot Preoperative evaluation to rule out surgical contraindication Flu vaccine need CKD (chronic kidney disease), stage III Vision problems Heart disease Hearing loss Arthritis Essential hypertension Mixed hyperlipidemia Peripheral arterial occlusive disease Long-term use of high-risk medication History of pulmonary embolism Ankle fracture Chronic back pain Depression Atherosclerotic heart disease of [place] coronary artery without angina pectoris Orthostatic hypotension Syncope and collapse Severe sepsis with acute organ dysfunction Diverticulitis large intestine Hyperkalemia Acute renal failure Altered mental status Type II diabetes mellitus Home Medications ?Medication ?Instructions ?Recorded ?Last Taken ?Type lancets #100 ea 08/14/21 Unknown Rx aspirin 81 mg capsule 81 mg PO DAILY 30 days #30 c aps 03/25/22 Unknown Rx docusate sodium 50 mg capsule 50 mg PO DAILY 04/09/22 Unknown History duloxetine 60 mg capsule,delayed 60 mg PO DAILY mental health 04/09/22 Unknown History release metformin 500 mg tablet 500 mg PO BID 06/25/24 Unkno wn History trazodone 100 mg tablet 200 mg PO QHS 06/25/24 Unkno wn History gabapentin 100 mg capsule 100 mg PO BID nerve pain #18 0 caps 09/16/24 Unknown Rx blood sugar diagnostic (Contour #100 ea 10/01/24 Unkno wn Rx Next Test Strips) amlodipine 10 mg tablet 10 mg PO DAILY #90 TABLETS 0 12/17/24 Unknown Rx atorvastatin 80 mg tablet 80 mg PO QHS cholesterol low ering 12/17/24 Unknown Rx #90 tabs levothyroxine 50 mcg tablet 50 mcg PO QDAY 1 month #30 tabs 12/17/24 Unknown Rx donepezil 10 mg tablet 10 mg PO QHS #90 tabs Unknown Rx memantine 14 mg capsule 14 mg PO QAM #90 ea 12/21/24 Unknown Rx sprinkle,extended release 24hr glimepiride 4 mg tablet 4 mg PO BID #180 tabs Unknown Rx Allergy/AdvReac Type Severity Reaction Status Date / Time iodine Allergy Unknown convulsions Verified 01/03/25 22:40 codeine Allergy Itching Verified 01/03/25 22:40 Family History Father FH: congestive heart failure Colon cancer Diabetes Myocardial infarction Mother FH: aneurysm Arthritis rheumatoid Brother CVA (cerebral vascular accident) Diabetes Brother Cancer, Onset Age: 52 unknown diagnosis, possibly lung (smoker) History of partial colectomy Sister Diabetes High cholesterol Surgical History History of right shoulder replacement History of shoulder replacement history of back fusion Postsurgical percutaneous transluminal coronary angioplasty (PTCA) status Presence of stent in coronary artery (~12/07/15) Status post placement of implantable loop recorder History of laminectomy History of hernia repair History of cholecystectomy History of appendectomy Social History household members: spouse housing: house Smoking Status: Former smoker how long ago did patient quit smokin alcohol intake: never substance use type: does not use diet: diabetic caffeine: Yes Type: coffee what type of physical activity do you participate in: none frequency: daily seatbelt use: always do you feel safe at home: Yes ROS ROS ED Constitutional Constitutional ED: Denies chills or fever(s) Eyes Eyes: Denies change in vision ENT ENT ED: Denies sore throat Cardiovascular Cardiovascular: Reports chest pain; Denies palpitations or racing heartbeat Respiratory/Chest Respiratory/Chest: Reports cough; Denies dyspnea Gastrointestinal Gastrointestinal: Denies abdominal pain, diarrhea, nausea or vomiting Musculoskeletal Musculoskeletal: Denies back pain Integumentary Denies rash Neurologic Neurologic: Denies headache(s) Hematologic/Lymphatic Hematologic/Lymphatic: Denies easy bleeding or easy bruising EXAM Physical Exam Const Vital Signs: 01/03/25 22:34 01/03/25 23:34 01/04/25 00:00 Temperature 98 F Temperature Source Oral Pulse Rate 71 64 65 Respiratory Rate 17 20 H 19 H Blood Pressure 152/82 H 155/77 H 149/81 H Blood Pressure Mean 105 103 103 Pulse Ox 100 95 100 Oxygen Delivery Method Room Air Room Air 01/04/25 01:00 01/04/25 02:00 Temperature 97.6 F L Temperature Source Pulse Rate 74 66 Respiratory Rate 18 14 Blood Pressure 144/80 H 143/71 H Blood Pressure Mean 101 95 Pulse Ox 99 98 Oxygen Delivery Method Room Air Positive well nourished and well developed General Appearance ED: well developed; Negative for pallor HEENT HEENT Narrative: Normocephalic atraumatic No tongue or lip swelling no oral lesions no airway edema or compromise There is cobblestoning the posterior pharynx consistent with sinus drainage but no secondary findings to suggest infection Eyes PERRL and EOMs intact bilaterally General Eye ED: Negative for scleral icterus Neck supple and no JVD Chest Wall Chest Narrative: There is reproducible left anterior lateral chest wall pain rib regions 7-10. The patient states this is the same pain he has been experiencing. There is no overlying abrasions or ecchymosis no bony deformity or subcutaneous emphysema noted Resp normal respiratory effort and clear to auscultation bilaterally Resp Narrative: Breath sounds are slight diminished throughout but overall clear to auscultation without signs of respiratory distress Cardio regular rate and regular rhythm Rate: other Other Details: Heart is regular rate and rhythm Radial and carotid pulses are equal and symmetric GI normal to inspection, nondistended, normoactive bowel sounds, non-tender, non- distended and no masses GI Narrative: No voluntary guarding no rigidity or pulsatile mass Auscultation: normoactive bowel sounds Palpation: soft Extremity normal to inspection Extremity Narrative: No asymmetric edema no pitting edema negative Homans' sign bilaterally Neuro oriented x3, CN's II-XII intact bilaterally and no sensory deficits noted Sensorium / Orientation: alert Motor Exam: strength 5/5 throughout Psych Mood & Affect: anxious Skin no rashes or lesions noted and no wounds General Skin Exam: Negative for jaundice or pallor MDM MDM MDM Narrative Medical decision making narrative: Patient arrived to the ER with stable vitals. He reported intermittent sharp left-sided chest discomfort that was reproducible in nature. History and exam is consistent with chest wall pain but in order to ensure this is not an atypical presentation for acute coronary syndrome I did elect to perform basic laboratory studies. With his report of recent cough as well as her concern for lung pathology such as pneumonia and therefore chest x-ray was obtained. Chest x-ray revealed no sign of pneumonia or pneumothorax or rib fracture. The patient's troponins were 37 and 33 and he has underlying chronic kidney disease and therefore these are at baseline and not clinically significant. After receiving medication he had complete resolution of his chest pain. Therefore at this time with resolution of the patient's chest pain labs showing baseline changes such as chronic kidney disease but no significant derangement or elevation to his troponins and x-ray reveals no lung pathology I do not feel there is need for further intervention he is otherwise safer discharge History & Record Review Discussion w/independent historian: Patient Lab Data Attestation: I reviewed the patient's lab results. Labs: Laboratory Results - last 24 hr 01/03/25 01/04/25 22:55 00:45 WBC 8.0 RBC 4.12 L Hgb 12.1 L Hct 36.4 L MCV 88.3 MCH 29.4 MCHC 33.2 RDW Std Deviation 45.1 H RDW Coeff of Sylvester 13.9 Plt Count 196 MPV 9.5 Immature Gran % (Auto) 0.500 Neut % (Auto) 59.6 Lymph % (Auto) 28.5 [place] % (Auto) 9.7 Eos % (Auto) 1.0 Baso % (Auto) 0.7 Absolute Neuts (auto) 4.8 Absolute Lymphs (auto) 2.29 Nucleated RBC % 0 Sodium 139 Potassium 3.9 Chloride 106 Carbon Dioxide 18.9 L Anion Gap 14 BUN 31 H Creatinine 1.60 H Estim Creat Clear Calc 40.53 L Est GFR (MDRD) Non-Af 44 L BUN/Creatinine Ratio 19.3 Glucose 174 H Calcium 9.9 Magnesium 2.0 Troponin T High Sens 37 H Troponin T Hi Sens 2 Hr 33 H Radiography Diagnostic Testing: Clinical Impression(s) from Imaging Studies Chest X-Ray 01/03/25 23:05 IMPRESSION: NO ACUTE FINDINGS. Reading Location[facility] Chest x-ray as interpreted by the emergency medicine physician reveals no acute infiltrate pneumothorax or pleural effusion Discharge Plan Triage Chief Complaint: Chest Pain ED Provider: Juan Diego Rodgers Dx/Rx/DC Orders Clinical Impression: Nonspecific chest pain, Hypothyroidism, Essential hypertension, CKD (chronic kidney disease), stage III, Non-insulin dependent diabetes mellitus Instructions: ED Chest Wall Strain Prescriptions: No Action duloxetine 60 mg capsule,delayed release(DR/EC) 60 mg PO DAILY docusate sodium 50 mg capsule 50 mg PO DAILY trazodone 100 mg tablet 200 mg PO QHS metformin 500 mg tablet 500 mg PO BID gabapentin 100 mg capsule 100 mg PO BID Qty: 180 1RF atorvastatin 80 mg tablet 80 mg PO QHS Qty: 90 3RF amlodipine 10 mg tablet 10 mg PO DAILY Qty: 90 3RF levothyroxine 50 mcg tablet 50 mcg PO QDAY 30 Days Qty: 30 1RF donepezil 10 mg tablet 10 mg PO QHS Qty: 90 2RF memantine 14 mg capsule,sprinkle,ER 24hr 14 mg PO QAM Qty: 90 2RF aspirin 81 mg capsule 81 mg PO DAILY 30 Days Qty: 30 0RF (DME) lancets Misc See Rx Instructions .ROUTE .MEDSUPPLY Qty: 100 3RF Rx Instructions: As directed 3 times a day (DME) Contour Next Test Strips Strip See Rx Instructions .Route Qty: 100 3RF Rx Instructions: 2 TIMES DAILY TO CHECK BLOOD SUGAR DUE TO DMII (E11.8) glimepiride 4 mg tablet 4 mg PO BID Qty: 180 1RF Primary Care Provider: Svetlana Casas Referrals: Svetlana Casas MD [Primary Care Provider] - Activity Restrictions/Additional Instructions: Your workup today revealed no sign of active heart damage pneumonia rib fracture or pneumothorax. Your workup indicates that your pain is most likely due to muscle tension and spasm of your rib cage. Continue all of your home medications as directed by your doctor and return to the ER should you have any further concerns Print Language: Armenian Disposition Disposition: Home, Self Care Discharge Date/Time: 01/04/25 02:35
--- OUTSIDE RECORDS SUMMARY | 2025-01-03 23:27 | XMS RPT_ITS | CCD ---
Author Organization [facility] Care Team Providers Care Overlay Operator Name Role Phone TISHA REESE Admitting Unavailable TISHA REESE Attending Unavailable Bony Ema HAWK Unavailable Dr. Svetlana Casas Primary Care Provider 1(33 0) Dr. Svetlana Casas Attending Provider 1(330)2 Dr. Svetlana Casas Referring Provider 1(330)2 Dr. Svetlana Casas Primary Care Provider 1(33 0) Dr. Svetlana Casas Attending Provider 1(330)2 Dr. Svetlana Casas Referring Provider 1(330)2 Dr. Lolis Curiel Emergency Provider Dr. Jayce Barclay Admit Provider Dr. Jayce Barclay Attending Provider Dr. Jayce Barclay Other Provider Dario PERCUSSION INSTRUMENT TUNER, PERCUSSION INSTRUMENT TUNER-C Nicholas Attending Provider Dr. Oscar Contreras Attending Provider Dr. Oscar Contreras Other Provider Dr. Yelitza Baker Attending Provider Lolis Laboy RN Unavailable Unavailable Yelitza Smith Unavailable Svetlana Casas MD Primary Care Provider Laboy RN, Lolis Unavailable Unavailable Olivia BROCK Yelitza S Unavailable Svetlana Casas MD Primary Care Provider 1(3 30) Yessenia, Dr. Mota Primary Care Provider 1(33 0) Ysesenia, Dr. Mota Attending Provider 1(330)2 Yessenia, Dr. Mota Referring Provider 1(330)2 DOC John Attending Provider DOC Christian Attending Provider Yessenia, Dr. Mota Primary Care Provider 1(33 0) Yessenia, Dr. Mota Attending Provider 1(330)2 Yessenia, Dr. Mota Referring Provider 1(330)2 Yessenia, Dr. Mota Primary Care Provider 1(33 0) Yessenia, Dr. Mota Attending Provider 1(330)2 Yessenia, Dr. Mota Referring Provider 1(330)2 Yessenia, Dr. Mota Primary Care Provider 1(33 0) Yessenia, Dr. Mota Attending Provider 1(330)2 Yessenia, Dr. Mota Referring Provider 1(330)2 Yessenia, Dr. Mota Primary Care Provider 1(33 0) Yessenia, Dr. Mota Attending Provider 1(330)2 Yessenia, Dr. Mota Referring Provider 1(330)2 Yessenia, Dr. Mota Primary Care Provider 1(33 0) Yessenia, Dr. Mota Attending Provider 1(330)2 Yessenia, Dr. Mota Referring Provider 1(330)2 DOC John Attending Provider CEBUL III, MARIS A Primary Care Unavailable MARIA LUISA LOREDO (AUD) Referring Unavailable MARIA LUISA LOREDO (AUD) Attending Unavailable SELF, SELF Referring Unavailable YESSENIA, EFEWONGBE B Primary Care Unavailable FRANCK STEWART Attending Unavailable SELF, SELF Referring Unavailable YESSENIA, EFEWONGBE B Primary Care Unavailable FRANCK STEWART Attending Unavailable Yessenia HAWK, Dr. Mota Primary Care Provider Lori HAWK, Dr. Wood Attending Provider Lori HAWK, Dr. Wood Referring Provider GAY SANDERSON Attending Provider GAY SANDERSON Referring Provider Yessenia HAWK, Dr. Mota Attending Provider Yessenia HAWK, Dr. Mota Referring Provider Dr. Hussein Waldron MD Attending Provider Vanita HAWK, Dr. Savage Referring Provider Yessenia HAWK, Dr. Mota Primary Care Provider Lori HAWK, Dr. Wood Attending Provider Yessenia HAWK, Dr. Mota Primary Care Provider Vanita HAWK, Dr. Savage Other Provider Yessenia HAWK, Dr. Mota Primary Care Provider Dr. Susan Robles MD Attending Provider Margaret HAWK, Dr. Davis Referring Provider Yessenia HAWK, Dr. Mota Primary Care Provider Yessenia HAWK, Dr. Mota Referring Provider Yessenia HAWK, Dr. Mota Attending Provider Dr. Adolph Maza MD Attending Provider Yessenia HAWK, Dr. Mota Primary Care Provider Vanita HAWK, Dr. Savage Attending Provider Vanita HAWK, Dr. Savage Referring Provider Yessenia HAWK, Dr. Mota Referring Provider Lori HAWK, Dr. Wood Other Provider Yessenia HAWK, Dr. Mota Primary Care Provider Vanita HAWK, Dr. Savage Attending Provider Vanita HAWK, Dr. Savage Referring Provider Oleghe, Efewongbe Attending Unavailable Oleghe, Efewongbe Referring Unavailable Oleghe, Efewongbe Primary Care Unavailable Hussein Waldron Attending Unavailable Oleghe, Efewongbe Referring Unavailable Oleghe, Efewongbe Primary Care Unavailable Oleghe, Efewongbe Attending Unavailable Oleghe, Efewongbe Referring Unavailable Oleghe, Efewongbe Primary Care Unavailable Oleghe, Efewongbe Attending Unavailable Oleghe, Efewongbe Referring Unavailable Oleghe, Efewongbe Primary Care Unavailable Nina Marrero Attending Unavailable Oleghe, Efewongbe Primary Care Unavailable Oleghe, Efewongbe Attending Unavailable Oleghe, Efewongbe Referring Unavailable Oleghe, Efewongbe Primary Care Unavailable Oleghe, Efewongbe Primary Care Unavailable Oleghe, Efewongbe Referring Unavailable Oleghe, Efewongbe Attending Unavailable Hussein Waldron Consulting Unavailable Nina Marrero Referring Unavailable Nina Marrero Attending Unavailable Oleghe, Efewongbe Primary Care Unavailable Hussein Waldron Attending Unavailable Oleghe, Efewongbe Referring Unavailable Oleghe, Efewongbe Primary Care Unavailable Nina Marrero Attending Unavailable Oleghe, Efewongbe Primary Care Unavailable Hussein Waldron Referring Unavailable Hussein Waldron Attending Unavailable Oleghe, Efewongbe Primary Care Unavailable Oleghe, Efewongbe Referring Unavailable Oleghe, Efewongbe Attending Unavailable Oleghe, Efewongbe Primary Care Unavailable Oleghe, Efewongbe Primary Care Unavailable Oleghe, Efewongbe Referring Unavailable BaddoHussein taylor Attending Unavailable Oleghe, Efewongbe Referring Unavailable Oleghe, Efewongbe Primary Care Unavailable Adolph Maza Attending Unavailable Oleghe, Efewongbe Attending Unavailable Oleghe, Efewongbe Primary Care Unavailable Oleghe, Efewongbe Referring Unavailable Baddour, Hussein Referring Unavailable Oleghe, Efewongbe Primary Care Unavailable Vanita, Hussein Attending Unavailable Nina Marrero Consulting Unavailable Oleghe, Efewongbe Referring Unavailable Oleghe, Efewongbe Attending Unavailable Oleghe, Efewongbe Primary Care Unavailable Basali, Ayman Referring Unavailable Basali, Ayman Attending Unavailable Oleghe, Efewongbe Primary Care Unavailable CherdourHussein Consulting Unavailable Oleghe, Efewongbe Primary Care Unavailable Oleghe, Efewongbe Referring Unavailable Oleghe, Efewongbe Attending Unavailable Basali, Ayman Referring Unavailable Basali, Ayman Attending Unavailable Oleghe, Efewongbe Primary Care Unavailable BaddourHussein Referring Unavailable Baddour, Hussein Attending Unavailable Oleghe, Efewongbe Primary Care Unavailable Oleghe, Efewongbe Primary Care Unavailable SHONDA, JENN1 Referring Unavailable SHONDA, JENN1 Attending Unavailable Allergies Allergy Classification Reported Allergen(s) Allergy Type Date of Onset Reaction(s) Facility (20 sources) Codeine; Translations: [CODEINE] Drug Allergy 5 Itching [facility] Repository (20 sources) Iodine; Translations: [IODINE] Drug Allergy 5 convulsions [facility] Repository Comment on above: pt doesn't recall co nvulsions, just itching 05/15/22 (2 sources) Penicillins; Translations: [PENICILLINS] Propensity to adverse reactions to drug (disorder) 5 [facility] Repository (2 sources) SITagliptin; Translations: [SITAGLIPTIN] Drug Allergy 7 [facility] Repository (2 sources) AMOXICILLIN-POT CLAVULANATE; Translations: [AMOXICILLIN-POT CLAVULANATE] Propensity to adverse reactions to drug (disorder) 5 [facility] Repository (1 source) oxyCODONE Drug Allergy 2 [facility] Work Phone: Medications Current Medications Medication Drug Class(es) Dates Sig (Normalized) Sig (Original) aspirin 81 mg oral tablet (20 sources) Platelet Aggregation Inhibitor, Nonsteroidal Anti-inflammatory Drug Start: 03-25-2022 take 1 capsule by mouth once daily Aspirin 81 mg capsule Active 81 mg PO DAILY 30 30 0 March 25, 2022 1:00am Start: 03-16-2020 End: 04-09-2022 Aspirin (Adult Low Dose Aspi rin) 81 mg tablet,delayed release (DR/EC) Discontinued 81 mg PO DAILY March 16, 2020 1:00am April 09, 2022 10:18am heart health Start: 09-30-2016 End: 12-04-2019 take 1 tablet by mouth once daily Aspirin 81 MG tablet,chewable Discontinued 81 mg PO DAILY@0800 September 30, 2016 12:00am December 04, 2019 9:33am C- PAIN CRM (1 source) Start: 08-21-2023 C- PAIN CRM Ac tive 1 BOTTLE TOPICAL 3 times daily 1 August 21, 2023 12:00am clonazePAM 1 mg oral tablet (20 sources) Benzodiazepine Start: 10-17-2020 take 1 mg by mouth twice daily Clonazepam Active 1 MG PO TWICE A DAY October 17, 2020 12:00am Start: 11-10-2018 End: 05-11-2019 take 1 tablet by mouth twice daily Clonazepam 1 mg tablet Discontinued 1 mg PO TWICE A DAY November 10, 2018 12:00am May 11, 2019 11:35am docusate sodium 50 mg oral capsule (20 sources) Start: 04-09-2022 take 1 capsule by mouth once daily Docusate Sodium 50 mg capsule Active 50 mg PO DAILY April 09, 2022 1:00am Start: 03-16-2020 End: 04-17-2021 take 3 capsules by mouth at bedtime Docusate Sodium (Colace Clear) 50 mg capsule Discontinued 150 mg PO AT BEDTIME March 16, 2020 1:00am April 17, 2021 2:03pm Docusate Sodium (DOCUSATE PO) Take 1 capsule by mouth as needed. 0 Active Docusate Sodium (DOCUSATE PO) Take by mouth. 0 Active DULoxetine 60 mg delayed release oral capsule (20 sources) Serotonin and Norepinephrine Reuptake Inhibitor Start: 04-09-2022 take 1 capsule by mouth once daily Duloxetine 60 mg capsule,delayed release(DR/EC) Active 60 mg PO DAILY April 09, 2022 10:16am mental health Start: 02-09-2022 End: 02-09-2022 take 1 capsule by mouth once daily Duloxetine 60 mg capsule,delayed release(DR/EC) Discontinued 60 mg PO DAILY February 09, 2022 10:27am February 09, 2022 11:21am Start: 11-06-2021 End: 04-09-2022 take 1 capsule by mouth twice daily Duloxetine 60 mg capsule,delayed release(DR/EC) Discontinued 60 mg PO TWICE A DAY 60 2 December 04, 2021 12:20pm February 09, 2022 10:28am Start: 11-25-2019 End: 12-04-2019 take 1 capsule by mouth twice daily Duloxetine 60 mg capsule,delayed release(DR/EC) Discontinued 60 mg PO TWICE A DAY November 25, 2019 12:00am December 04, 2019 9:33am Start: 02-20-2019 End: 11-06-2021 take 1 capsule by mouth once daily Duloxetine 60 mg capsule,delayed release(DR/EC) Discontinued 60 mg PO DAILY October 17, 2020 12:00am November 06, 2021 10:18am glimepiride 4 mg oral tablet (20 sources) Sulfonylurea Start: 06-25-2024 take 1 tablet by mouth twice daily Glimepiride 4 mg tablet Active 4 mg PO TWICE A DAY June 25, 2024 10:08am Type 2 diabetes mellitus Type 2 diabetes mellitus with unspecified complications Start: 03-04-2024 End: 06-25-2024 take 0.5 tablet by mouth once daily Glimepiride 4 mg tablet Discontinued 6 mg PO daily 180 3 March 04, 2024 4:59pm June 25, 2024 10:12am Type 2 diabetes mellitus Type 2 diabetes mellitus with unspecified complications Take 4 mg in the morning and half tablet ( 2 mg ) at night Start: 05-22-2023 End: 03-04-2024 Glimepiride 4 mg tablet Disc ontinued 0 .ROUTE .COMPLEX 180 May 22, 2023 12:21pm March 04, 2024 5:02pm Type 2 diabetes mellitus Type 2 diabetes mellitus with unspecified complications TAKE 1 TABLET TWICE DAILY FOR BLOOD SUGAR Start: 04-15-2023 End: 05-22-2023 Glimepiride 4 mg tablet Disc ontinued 0 .ROUTE .COMPLEX 180 3 April 15, 2023 3:32pm May 22, 2023 12:22pm Type 2 diabetes mellitus Type 2 diabetes mellitus with unspecified complications TAKE 1 TABLET TWICE DAILY FOR BLOOD SUGAR Start: 04-15-2023 End: 05-22-2023 Glimepiride 4 mg tablet Disc ontinued 0 .ROUTE .COMPLEX 180 April 15, 2023 3:32pm May 22, 2023 12:22pm TAKE 1 TABLET TWICE DAILY FOR BLOOD SUGAR Start: 04-15-2023 End: 05-22-2023 Glimepiride Discontinued 0 . ROUTE .COMPLEX 180 April 15, 2023 3:32pm May 22, 2023 12:22pm TAKE 1 TABLET TWICE DAILY FOR BLOOD SUGAR Start: 04-15-2023 End: 05-22-2023 Glimepiride Discontinued 0 . ROUTE .COMPLEX 180 April 15, 2023 2:32pm May 22, 2023 11:22am TAKE 1 TABLET TWICE DAILY FOR BLOOD SUGAR Start: 09-27-2020 End: 04-15-2023 take 1 tablet by mouth twice daily Glimepiride 4 mg tablet Discontinued 4 mg PO TWICE A DAY 180 April 17, 2022 10:53am May 16, 2022 10:21am Type 2 diabetes mellitus Type 2 diabetes mellitus with unspecified complications blood sugar Start: 06-28-2020 End: 09-27-2020 take 1 tablet by mouth once daily Glimepiride 4 mg tablet Discontinued 4 mg PO DAILY 90 June 28, 2020 5:49pm September 27, 2020 10:44am Start: 04-11-2020 End: 06-28-2020 take 2 tablets by mouth once daily Glimepiride 4 MG tablet Discontinued 8 mg PO DAILY April 11, 2020 9:21am June 28, 2020 5:10pm Start: 04-11-2020 End: 06-28-2020 take 8 mg by mouth once daily Glimepiride Discontinued 8 MG PO DAILY April 11, 2020 9:21am June 28, 2020 5:10pm Start: 03-31-2020 End: 04-11-2020 take 1 tablet by mouth once daily Glimepiride 4 mg tablet Discontinued 4 mg PO DAILY 90 March 31, 2020 2:41pm April 11, 2020 9:21am Start: 05-11-2019 End: 03-31-2020 take 8 mg by mouth once daily Glimepiride Discontinued 8 MG PO DAILY 180 March 03, 2020 2:08pm March 31, 2020 2:42pm Start: 12-24-2018 End: 03-31-2020 take 2 tablets by mouth once daily Glimepiride 4 mg tablet Discontinued 8 mg PO DAILY 180 March 03, 2020 2:08pm March 31, 2020 2:42pm Start: 09-30-2016 End: 05-11-2019 take 1 tablet by mouth once daily Glimepiride 4 MG tablet Discontinued 4 mg PO DAILY September 30, 2016 12:00am May 11, 2019 11:36am ibuprofen 200 mg oral tablet (3 sources) Nonsteroidal Anti-inflammatory Drug take 1 tablet by mouth every six hours as needed Ibuprofen 200 MG tablet Take 1 tablet by mouth every 6 hours as needed for Mild Pain. 0 Active levothyroxine sodium 0.05 mg oral tablet (20 sources) l-Thyroxine Start: take 1 tablet by mouth once daily Levothyroxine 50 mcg tablet Active 50 ug PO daily 30 30 December 17, 2024 4:55pm Start: 11-03-2024 End: 12-17-2024 Levothyroxine 25 mcg tablet Discontinued 37.5 ug PO daily 45 30 November 03, 2024 2:46pm December 17, 2024 4:55pm Start: 09-23-2024 End: 11-03-2024 take 1 tablet by mouth once daily Levothyroxine (Levoxyl) 25 mcg tablet Discontinued 25 ug PO daily 30 September 23, 2024 12:00am November 03, 2024 2:48pm Start: 05-22-2023 End: 07-01-2023 take 1 tablet by mouth once daily Levothyroxine 25 mcg tablet Discontinued 25 ug PO DAILY 30 May 22, 2023 1:00am July 01, 2023 12:30pm Lidocaine 5 % adhesive patch,medicated (10 sources) Start: 09-16-2024 Lidocaine 5 % adhesive patch,medicated Active 1 NMA TOPICAL daily 30 29 August 21st, 2025 12:00am leave on most painful area for up to 12 hrs Start: 09-16-2024 Lidocaine 5 % adhesive patch,medicated Active 1 NMA TOPICAL daily September 16, 2024 12:00am leave on most painful area for up to 12 hrs 24 hr memantine hydrochloride 14 mg extended release oral capsule (20 sources) T-liswvm-F-aspartate Receptor Antagonist Start: 09-24-2024 End: 12-21-2024 take 1 capsule by mouth once daily in the morning Memantine 14 mg capsule,sprinkle,ER 24hr Active 14 mg PO EVERY MORNING 90 December 21, 2024 10:16am Start: 02-18-2023 End: 09-24-2024 take 1 tablet by mouth once daily Memantine 5 mg tablet Discontinued 5 mg PO DAILY 90 January 01, 2024 1:30pm June 10, 2024 5:28pm metFORMIN hydrochloride 500 mg oral tablet (20 sources) Biguanide Start: 06-25-2024 take 1 tablet by mouth twice daily Metformin 500 mg tablet Active 500 mg PO TWICE A DAY June 25, 2024 1:00am Start: 07-01-2023 End: 03-04-2024 take 1 tablet by mouth twice daily Metformin 500 mg tablet Discontinued 500 mg PO TWICE A DAY July 01, 2023 1:00am March 04, 2024 8:01pm Start: 05-30-2020 End: 05-22-2023 Metformin 500 mg tablet Disc ontinued 0 .ROUTE .COMPLEX 180 3 May 09, 2023 9:41am May 22, 2023 12:22pm TAKE 1 TABLET TWICE DAILY FOR BLOOD SUGAR Start: 05-30-2020 End: 06-28-2020 Metformin Discontinued MG PO May 30, 2020 1:00am June 28, 2020 5:10pm Start: 03-03-2020 End: 03-30-2020 take 1 tablet by mouth twice daily Metformin 500 mg tablet Discontinued 500 mg PO TWICE A DAY 180 1 March 03, 2020 2:09pm March 30, 2020 2:16pm Start: 05-11-2019 End: 03-03-2020 take 2 tablets by mouth once daily Metformin 500 mg tablet Discontinued 1000 mg PO DAILY May 11, 2019 11:35am March 03, 2020 2:09pm Start: 05-11-2019 End: 03-03-2020 take 1000 mg by mouth once daily Metformin Discontinued 1000 MG PO DAILY May 11, 2019 11:35am March 03, 2020 2:09pm Start: 12-24-2018 take 1 tablet by willy th once daily in the morning METFORMIN HCL ER (OSM) 500 MG [id number] tablet by mouth every morning metformin [id number] Li Birdr AT Start: 09-30-2016 End: 05-11-2019 take 1 tablet by mouth once daily Metformin 500 MG tablet Discontinued 500 mg PO DAILY September 30, 2016 12:00am May 11, 2019 11:36am Multiple Vitamin (MULTIVITAMIN ADULT PO) (5 sources) Multiple Vitamin (MULTIVITAMIN ADULT PO) Take by mouth. 0 Active tiZANidine 4 mg oral tablet (20 sources) Central alpha-2 Adrenergic Agonist Start: 06-26-2022 tiZANidine 4 MG tablet Start: 04-09-2022 End: 09-16-2024 take 1 capsule by mouth at bedtime as needed Tizanidine 4 mg capsule Discontinued 4 mg PO AT BEDTIME as needed April 09, 2022 1:00am September 16, 2024 3:57pm traZODone hydrochloride 100 mg oral tablet (20 sources) Serotonin Reuptake Inhibitor Start: 06-25-2024 take 2 tablets by mouth at bedtime Trazodone 100 mg tablet Active 200 mg PO AT BEDTIME June 25, 2024 10:09am Start: 06-19-2022 take 2 tablets by mo ut at bedtime as needed traZODone 100 MG tablet TAKE 2 TABLETS BY MOUTH AT BEDTIME NEEDED 0 06/19/2022 Active Start: 05-02-2022 End: 06-25-2024 Trazodone 100 mg tablet Disc ontinued 50 mg PO AT BEDTIME May 02, 2022 2:53pm June 25, 2024 10:12am Start: 05-02-2022 take 50 mg by mouth at bedtime Trazodone Active 50 MG PO AT BEDTIME May 02, 2022 2:53pm Start: 04-09-2022 End: 05-02-2022 take 1 tablet by mouth at bedtime as needed Trazodone 100 mg tablet Discontinued 100 mg PO AT BEDTIME as needed April 09, 2022 1:00am May 02, 2022 2:55pm Start: 03-25-2022 End: 04-09-2022 take 1 tablet by mouth at bedtime as needed for sleep Trazodone 50 mg Tablet Discontinued 50 mg PO AT BEDTIME as needed for Sleep March 25, 2022 1:00am April 09, 2022 10:17am Start: 12-24-2018 End: 02-09-2022 take 1 tablet by mouth at bedtime Trazodone 300 mg tablet Discontinued 300 mg PO AT BEDTIME May 11, 2019 11:36am February 09, 2022 10:28am Start: 11-10-2018 End: 05-11-2019 Trazodone 300 mg tablet Disc ontinued 75 mg PO DAILY November 10, 2018 12:00am May 11, 2019 11:36am Start: 11-10-2018 End: 05-11-2019 take 75 mg by mouth once daily Trazodone Discontinued 75 MG PO DAILY November 10, 2018 12:00am May 11, 2019 11:36am Start: 12-30-2016 End: 10-28-2017 take 2 tablets by mouth at bedtime Trazodone 100 MG tablet Discontinued 200 mg PO AT BEDTIME December 30, 2016 12:00am October 28, 2017 2:40pm Start: 12-30-2016 End: 10-28-2017 take 200 mg by mouth at bedtime Trazodone Discontinued 200 MG PO AT BEDTIME December 30, 2016 12:00am October 28, 2017 2:40pm vitamin B12 (5 sources) Vitamin B12 Cyanocobalamin ( VITAMIN B12 PO) Take by mouth. 0 Active Completed/Discontinued Medications Medication Drug Class(es) Dates Sig (Normalized) Sig (Original) acetaminophen 500 mg oral tablet (20 sources) Start: 04-19-2020 End: 10-17-2020 take 2 tablets by mouth every six hours as needed Acetaminophen 500 MG tablet Discontinued 1000 mg PO EVERY 6 HOURS NEEDED 100 0 April 19, 2020 1:00am October 17, 2020 11:50am Start: 04-19-2020 End: 10-17-2020 take 1000 mg by mouth every six hours as needed Acetaminophen Discontinued 1000 MG PO EVERY 6 HOURS NEEDED 100 April 19, 2020 1:00am October 17, 2020 11:50am acetaminophen 325 mg / HYDROcodone bitartrate 5 mg oral tablet (20 sources) Opioid Agonist Start: 12-24-2022 End: 05-22-2023 Hydrocodone-Acetaminophen 5- 325 mg tablet Discontinued 1 {tbl} PO EVERY 6 HOURS NEEDED as needed for Pain 10 3 0 December 24, 2022 May 22, 2023 10:00am Acute cervical myofascial strain Strain of muscle, fascia and tendon at neck level, initial encounter Start: 12-24-2022 End: 05-22-2023 take 1 tablet by mouth every six hours as needed Hydrocodone-Acetaminophen Discontinued 1 TABLET PO EVERY 6 HOURS NEEDED 10 3 December 24, 2022 May 22, 2023 10:00am Start: 01-19-2020 End: 01-21-2020 Hydrocodone-Acetaminophen 1 TABLET tablet Discontinued 1 {tbl} PO EVERY 4 HOURS NEEDED as needed for Pain 10 2 0 January 19, 2020 January 20, 2020 12:00am January 21, 2020 12:02am Sprain of shoulder Unspecified sprain of unspecified shoulder joint, initial encounter Start: 01-19-2020 End: 01-21-2020 take 1 tablet by mouth every four hours as needed Hydrocodone-Acetaminophen Discontinued 1 TABLET PO EVERY 4 HOURS NEEDED 10 2 January 19, 2020 January 21, 2020 12:02am Start: 07-26-2019 End: 07-28-2019 Hydrocodone-Acetaminophen 1 TABLET tablet Discontinued 1 {tbl} PO EVERY 4 HOURS NEEDED as needed for Pain 10 2 0 July 26, 2019 July 27, 2019 12:00am July 28, 2019 12:07am Epididymitis Epididymitis Start: 07-26-2019 End: 07-28-2019 take 1 tablet by mouth every four hours as needed Hydrocodone-Acetaminophen Discontinued 1 TABLET PO EVERY 4 HOURS NEEDED 10 2 July 26, 2019 July 28, 2019 12:07am Start: 05-23-2013 End: 06-04-2013 Hydrocodone-Acetaminophen 1 TABLET tablet Discontinued 1 - 2 {tbl} PO EVERY 4 HOURS NEEDED as needed for Pain 20 0 May 23, 2013 1:00am June 04, 2013 3:03pm Start: 05-23-2013 End: 06-04-2013 take 1 tablet by mouth every four hours as needed Hydrocodone-Acetaminophen Discontinued 1 - 2 TABLET PO EVERY 4 HOURS NEEDED May 23, 2013 1:00am June 04, 2013 3:03pm acetaminophen 325 mg / oxyCODONE hydrochloride 5 mg oral tablet (20 sources) Opioid Agonist Start: 04-30-2019 End: 05-03-2019 Oxycodone-Acetaminophen 1 TABLET tablet Discontinued 1 - 2 {tbl} PO EVERY 6 HOURS NEEDED as needed for Pain 12 3 0 April 30, 2019 May 02, 2019 1:00am May 03, 2019 1:08am Epididymitis Start: 04-30-2019 End: 05-03-2019 take 1 tablet by mouth every six hours as needed Oxycodone-Acetaminophen Discontinued 1 - 2 TABLET PO EVERY 6 HOURS NEEDED 12 3 April 30, 2019 May 03, 2019 1:08am amLODIPine 10 mg oral tablet (20 sources) Dihydropyridine Calcium Channel Fabi Start: 09-12-2022 End: 12-17-2024 take 1 tablet by mouth once daily Amlodipine 10 mg tablet Discontinued 10 mg PO DAILY 90 3 May 11, 2024 2:09pm December 17, 2024 2:11pm Start: 08-15-2022 End: 09-12-2022 take 0.5 tablet by mouth once daily, then take 1 tablet by mouth once daily Amlodipine 10 mg tablet Discontinued 10 mg PO DAILY 60 1 August 15, 2022 12:00am September 12, 2022 8:20am Take 1/2 tablet x 2 weeks then increase to 1 tablet daily. Start: 03-25-2022 End: 04-09-2022 take 1 tablet by mouth once daily Amlodipine 5 mg Tablet Discontinued 5 mg PO DAILY 30 30 0 March 25, 2022 1:00am April 09, 2022 10:18am On Hold: Order Changed amoxicillin 500 mg oral capsule (16 sources) Penicillin-class Antibacterial Start: 03-01-2023 End: 05-22-2023 take 4 capsules by mouth once Amoxicillin 500 mg capsule Discontinued 2000 mg PO ONCE 4 March 01, 2023 12:00am May 22, 2023 9:59am Dental Prophylaxis Start: 03-01-2023 End: 05-22-2023 take 2000 mg by mouth once Amoxicillin Discontinued 20 00 MG PO ONCE March 01, 2023 12:00am May 22, 2023 9:59am Dental Prophylaxis atorvastatin 80 mg oral tablet (20 sources) HMG-CoA Reductase Inhibitor Start: 09-30-2016 End: 12-17-2024 take 1 tablet by mouth at bedtime Atorvastatin 80 mg tablet Discontinued 80 mg PO AT BEDTIME 90 3 March 10, 2024 2:09pm June 10, 2024 5:28pm cholesterol lowering belladonna alkaloids 16.2 mg / opium 60 mg rectal suppository (20 sources) Start: 05-23-2013 End: 06-04-2013 take 60 mg rectal route twice daily as needed for muscle spasms Belladonna Alkaloids-Opium 60 MG/15 MG Suppos. Discontinued 60 mg RECTAL TWICE A DAY as needed for Bladder Spasm 10 0 May 23, 2013 2:13am June 04, 2013 3:02pm benzonatate 200 mg oral capsule (20 sources) Non-narcotic Antitussive Start: 07-23-2017 End: 07-23-2017 take 1 capsule by mouth three times daily as needed Benzonatate 200 mg capsule Discontinued 200 mg PO THREE TIMES A DAY as needed 21 7 0 July 23, 2017 12:00am July 23, 2017 3:42pm bisacodyl 5 mg delayed release oral tablet (20 sources) Stimulant Laxative Start: 04-17-2021 End: 04-09-2022 take 2 tablets by mouth once daily as needed for constipation Bisacodyl 5 mg tablet,delayed release (DR/EC) Discontinued 10 mg PO DAILY as needed for Constipation April 17, 2021 1:00am April 09, 2022 10:18am Start: 04-17-2021 End: 04-09-2022 take 10 mg by mouth once daily Bisacodyl Discontinued 10 MG PO DAILY April 17, 2021 1:00am April 09, 2022 10:18am C- PAIN CRM 60 GM (13 sources) Start: 08-21-2023 End: 06-25-2024 apply 60 g topically three times daily as needed C- PAIN CRM 60 GM Discontinued 1 NMA TOPICAL 3 times daily as needed for pain 1 90 3 August 21, 2023 12:00am June 25, 2024 10:10am Start: 08-21-2023 End: 06-25-2024 apply 60 g topically three times daily as needed C- PAIN CRM 60 GM Discontinued 1 NMA TOPICAL 3 times daily as needed for pain 1 August 21, 2023 12:00am February 27th, 2025 10:10am cephalexin 500 mg oral capsule (14 sources) Cephalosporin Antibacterial Start: 07-01-2023 End: 08-21-2023 take 1 capsule by mouth twice daily Cephalexin 500 mg capsule Discontinued 500 mg PO TWICE A DAY 14 July 01, 2023 1:00am August 21, 2023 10:57am ciprofloxacin 500 mg oral tablet (20 sources) Quinolone Antimicrobial Start: 04-30-2019 End: 08-06-2019 take 1 tablet by mouth twice daily Ciprofloxacin Hcl 500 MG tablet Discontinued 500 mg PO TWICE A DAY 20 April 30, 2019 1:00am August 06, 2019 11:02am clopidogrel 75 mg oral tablet (20 sources) [id number] Platelet Inhibitor Start: 09-30-2016 End: 05-15-2018 take 1 tablet by mouth once daily Clopidogrel 75 mg tablet Discontinued 75 mg PO DAILY 90 3 October 28, 2017 2:41pm May 15, 2018 10:18am 24 hr desvenlafaxine succinate 100 mg extended release oral tablet (20 sources) Serotonin and Norepinephrine Reuptake Inhibitor Start: 10-17-2020 End: 11-06-2021 take 1 tablet by mouth once daily, then take 1 tablet by mouth every twenty-four hours Desvenlafaxine Succinate (Pristiq) 100 mg tablet extended release 24 hr Discontinued 100 mg PO DAILY October 17, 2020 12:00am November 06, 2021 12:52pm dexamethasone 4 mg oral tablet (20 sources) Corticosteroid Start: 03-25-2022 End: 04-09-2022 take 6 mg by mouth once daily at mealtime Dexamethasone 4 mg Tablet Discontinued 6 mg PO DAILY WITH MEALS 14 9 March 25, 2022 1:00am April 09, 2022 10:19am Start: 03-25-2022 End: 04-09-2022 take 6 mg by mouth once daily at mealtime Dexamethasone Discontinued 6 MG PO DAILY WITH MEALS 14 March 25, 2022 1:00am April 09, 2022 10:19am diphenhydrAMINE hydrochloride 25 mg oral capsule (20 sources) Histamine-1 Receptor Antagonist Start: 04-09-2022 End: 05-02-2022 take 1 capsule by mouth at bedtime as needed Diphenhydramine Hcl (Allergy (Diphenhydramine)) 25 mg capsule Discontinued 25 mg PO AT BEDTIME as needed April 09, 2022 1:00am May 02, 2022 2:54pm donepezil hydrochloride 10 mg oral tablet (20 sources) Start: 06-25-2024 End: 12-21-2024 take 1 tablet by mouth at bedtime Donepezil 10 mg tablet Discontinued 10 mg PO AT BEDTIME 90 1 September 24, 2024 7:13am December 21, 2024 10:16am Start: 06-25-2024 End: 09-16-2024 take 1 tablet by mouth once daily Donepezil 5 mg tablet Discontinued 5 mg PO daily June 25, 2024 1:00am September 16, 2024 3:56pm doxepin hydrochloride 25 mg oral capsule (20 sources) Tricyclic Antidepressant Start: 10-01-2016 End: 10-02-2016 take 1 capsule by mouth at bedtime Doxepin 25 MG capsule Discontinued 25 mg PO AT BEDTIME October 01, 2016 12:00am October 02, 2016 2:24pm doxycycline monohydrate 100 mg oral capsule (20 sources) Tetracycline-class Drug Start: 07-01-2023 End: 07-12-2023 take 1 capsule by mouth twice daily Doxycycline Monohydrate 100 mg capsule Discontinued 100 mg PO TWICE A DAY 14 0 July 01, 2023 1:00am July 12, 2023 8:36am Start: 04-19-2020 End: 05-30-2020 take 1 capsule by mouth twice daily Doxycycline Monohydrate 100 MG capsule Discontinued 100 mg PO TWICE A DAY 60 0 April 19, 2020 1:00am May 30, 2020 12:15pm doxycycline has been shown to aid in rotator cuff healing. Flash Glucose Scanning Reade r (Freestyle Ryley 2 Schuyler) misc (13 sources) Start: 06-10-2024 End: 06-25-2024 Flash Glucose Scanning Reade r (Freestyle Ryley 2 Schuyler) misc Discontinued 0 .Route 1 June 10, 2024 1:00am June 25, 2024 10:11am As directed Start: 06-10-2024 End: 06-25-2024 Flash Glucose Scanning Reade r (Freestyle Ryley 2 Schuyler) misc Discontinued 0 .Route 1 June 10, 2024 1:00am June 25, 2024 10:11am As directed Flash Glucose Sensor (Freest yle Ryley 2 Sensor) kit (13 sources) Start: 06-10-2024 End: 06-25-2024 Flash Glucose Sensor (Freest yle Ryley 2 Sensor) kit Discontinued 0 .Route 1 June 10, 2024 1:00am June 25, 2024 10:12am As directed Start: 06-10-2024 End: 06-25-2024 Flash Glucose Sensor (Freest yle Ryley 2 Sensor) kit Discontinued 0 .Route June 10, 2024 1:00am June 25, 2024 10:12am As directed gabapentin 100 mg oral capsule (20 sources) Anti-epileptic Agent Start: 02-27-2021 End: 09-16-2024 take 1 capsule by mouth twice daily Gabapentin 100 mg capsule Discontinued 100 mg PO TWICE A DAY 180 August 24, 2024 10:18am September 16, 2024 4:41pm nerve pain Start: 06-29-2019 take 1 tablet by willy th twice daily NEURONTIN 300 MG CAPS 1 tablet by mouth twice a day gabapentin [id number] Li Mukesh AT gadoterate Meglumine (DOTAREM) 5 MMOL/10ML injection 3-60 mL (1 source) Start: 05-02-2023 End: 05-02-2023 gadoterate Meglumine (DOTAREM) 5 MMOL/10ML injection 3-60 mL Gallium Ga 68 Dotatate (Netspot) 0.5-5.94 millicurie (1 source) Start: 06-26-2022 End: 06-26-2022 Gallium Ga 68 Dotatate (Netspot) 0.5-5.94 millicurie hydrOXYzine pamoate 25 mg oral capsule (20 sources) Antihistamine Start: 04-09-2022 End: 11-27-2024 take 1 capsule by mouth at bedtime as needed Hydroxyzine Pamoate 25 mg capsule Discontinued 25 mg PO AT BEDTIME as needed for for itch 60 0 November 27, 2024 12:53pm November 27, 2024 12:54pm Start: 03-03-2020 End: 03-30-2020 take 1 tablet by mouth every six hours as needed Hydroxyzine Hcl 25 mg tablet Discontinued 25 mg PO EVERY 6 HOURS as needed for itching 30 0 March 03, 2020 2:08pm March 30, 2020 10:35am Start: 03-18-2017 End: 05-15-2018 Hydroxyzine Hcl 10 MG tablet Discontinued 25 mg PO EVERY 6 HOURS NEEDED as needed for Itching & Insomnia March 18, 2017 1:00am May 15, 2018 10:18am Start: 03-18-2017 End: 05-15-2018 take 25 mg by mouth every six hours as needed Hydroxyzine Hcl Discontinued 25 MG PO EVERY 6 HOURS NEEDED March 18, 2017 1:00am May 15, 2018 10:18am Start: 10-02-2016 End: 12-30-2016 take 25-50 mg by mouth at bedtime as needed for sleep Hydroxyzine (Atarax) 25 MG tablet Discontinued 25 - 50 mg PO AT BEDTIME NEEDED as needed for Sleep 60 0 October 02, 2016 2:35pm December 30, 2016 11:47am 3 ml insulin glargine 100 unt/ml pen injector (20 sources) Insulin Analog Start: 05-22-2023 End: 09-08-2024 Insulin Glargine 100 unit/mL (3 mL) insulin pen Discontinued 18 U SC DAILY 15 90 2 August 13, 2023 3:03pm November 27, 2023 3:05pm Start: 11-13-2022 End: 05-22-2023 Insulin Glargine (Lantus Deysi ostar U-100 Insulin) 100 unit/mL (3 mL) insulin pen Discontinued 0 .ROUTE .COMPLEX 15 2 February 18, 2023 9:13am May 22, 2023 3:50pm INJECT 15 UNITS SUBCUTANEOUSLY IN THE EVENING Start: 08-15-2022 End: 11-13-2022 Insulin Glargine (Lantus Deysi ostar U-100 Insulin) 100 unit/mL (3 mL) insulin pen Discontinued 15 U SC EVERY EVENING 15 0 August 15, 2022 12:00am November 13, 2022 5:18pm Start: 03-31-2020 End: 05-30-2020 Insulin Glargine 100 unit/mL (3 mL) insulin pen Discontinued 15 U SC EVERY MORNING 15 1 March 31, 2020 1:00am May 30, 2020 12:14pm lisinopril 10 mg oral tablet (20 sources) Angiotensin Converting Enzyme Inhibitor Start: 10-28-2017 End: 05-11-2019 take 1 tablet by mouth once daily Lisinopril 10 mg tablet Discontinued 10 mg PO daily 90 3 November 07, 2017 7:59am November 10, 2018 2:40pm losartan potassium 50 mg oral tablet (19 sources) Angiotensin 2 Receptor Fabi Start: 08-15-2022 End: 08-15-2022 take 1 tablet by mouth once daily Losartan 50 mg tablet Discontinued 50 mg PO DAILY 30 1 August 15, 2022 12:00am August 15, 2022 8:55am magnesium hydroxide 80 mg/ml oral suspension (20 sources) Start: 02-12-2017 End: 07-23-2017 take 1 mL by mouth once daily Magnesium Hydroxide 400 MG/5 ML suspension Discontinued 5 mL PO DAILY February 12, 2017 12:00am July 23, 2017 2:52pm Start: 02-12-2017 End: 07-23-2017 take 1 mL by mouth once daily Magnesium Hydroxide Disc ontinued 5 ML PO DAILY February 12, 2017 12:00am July 23, 2017 2:52pm meloxicam 15 mg oral tablet (20 sources) Nonsteroidal Anti-inflammatory Drug Start: 05-15-2018 End: 08-06-2019 take 1 tablet by mouth once daily Meloxicam 15 mg tablet Discontinued 15 mg PO DAILY May 15, 2018 1:00am August 06, 2019 11:03am 24 hr metoprolol succinate 25 mg extended release oral tablet (20 sources) beta-Adrenergic Fabi Start: 12-24-2018 take 1 tablet by mouth once daily METOPROLOL SUCCINATE ER 25 MG [id number] tablet by mouth once a day metoprolol succinate [id number] Li TYSON Start: 11-10-2018 End: 04-20-2019 take 1 tablet by mouth once daily Metoprolol Tartrate 25 mg tablet Discontinued 25 mg PO DAILY 90 3 November 10, 2018 2:33pm April 20, 2019 2:19pm Start: 10-28-2017 End: 11-10-2018 take 1 tablet by mouth twice daily Metoprolol Tartrate 25 mg tablet Discontinued 25 mg PO TWICE A DAY 180 3 October 28, 2017 2:41pm November 10, 2018 2:33pm Start: 07-23-2017 End: 10-21-2017 Metoprolol Tartrate 25 mg ta blet Discontinued 12.5 mg PO TWICE A DAY 90 90 0 July 23, 2017 3:41pm October 20, 2017 12:00am October 21, 2017 12:07am Start: 07-23-2017 End: 10-21-2017 take 12.5 mg by mouth twice daily Metoprolol Tartrate Discontinued 12.5 MG PO TWICE A DAY 90 90 July 23, 2017 3:41pm October 21, 2017 12:07am Start: 07-23-2017 End: 07-23-2017 take 1 tablet by mouth twice daily Metoprolol Tartrate 25 mg tablet Discontinued 25 mg PO TWICE A DAY 180 90 0 July 23, 2017 12:00am July 23, 2017 3:41pm Iuojwuem-Qlh-Te-Lycopen-Lute in (Centrum Silver Men Tablet) 1 EACH tablet (8 sources) Start: 09-30-2016 End: 10-02-2016 Maabrqze-Oge-Kp-Lycopen-Lute in (Centrum Silver Men Tablet) 1 EACH tablet Discontinued 1 EACH PO DAILY September 29, 2016 11:00pm October 02, 2016 1:26pm Start: 09-30-2016 End: 10-02-2016 Wkktfqph-Ntk-Ov-Lycopen-Lute in (Centrum Silver Men Tablet) 1 EACH tablet Discontinued 1 EACH PO DAILY September 30, 2016 12:00am October 02, 2016 2:26pm Aa-Gxx-Kdysr-V2-Yydjcud-Bras in (Centrum Silver Men Tablet) 1 EACH tablet (19 sources) Start: 09-30-2016 End: 10-02-2016 Ye-Wro-Qlyay-U3-Bbymgsd-Qalc in (Centrum Silver Men Tablet) 1 EACH tablet Discontinued 1 NMA PO DAILY September 30, 2016 12:00am October 02, 2016 2:26pm Start: 09-30-2016 End: 10-02-2016 Ol-Tff-Hposr-B4-Iaglvlk-Emlx in (Centrum Silver Men Tablet) 1 EACH tablet Discontinued 1 EACH PO DAILY September 29, 2016 11:00pm October 02, 2016 1:26pm Start: 09-30-2016 End: 10-02-2016 Hx-Kvf-Dzffb-U5-Hzohmcb-Tuuc in (Centrum Silver Men Tablet) 1 EACH tablet Discontinued 1 EACH PO DAILY September 30, 2016 12:00am October 02, 2016 2:26pm omeprazole 20 mg delayed release oral capsule (20 sources) Proton Pump Inhibitor Start: 12-24-2018 take 1 tablet by mouth once daily OMEPRAZOLE 20 MG TBDD 1 tablet by mouth once a day omeprazole [id number] Li TYSON Start: 05-15-2018 End: 06-25-2024 take 1 capsule by mouth once daily Omeprazole 20 mg capsule,delayed release(DR/EC) Discontinued 20 mg PO DAILY 90 January 29, 2024 12:49pm June 25, 2024 10:11am acid reflux Start: 07-23-2017 End: 10-28-2017 take 1 capsule by mouth once daily Omeprazole 20 mg capsule,delayed release(DR/EC) Discontinued 20 mg PO daily July 23, 2017 2:48pm October 28, 2017 2:39pm Start: 10-01-2016 End: 07-23-2017 take 1 capsule by mouth twice daily Omeprazole 20 MG capsule Discontinued 20 mg PO TWICE A DAY October 01, 2016 12:00am July 23, 2017 2:53pm one touch (20 sources) Start: 07-01-2020 End: 07-01-2020 one touch Discontinued 0 .Ro emmonak .MEDSUPPLY 100 July 01, 2020 12:54pm July 01, 2020 3:05pm Type 2 diabetes mellitus without complications diabetes Use to test blood sugar 3 times a day and PRN Start: 07-01-2020 End: 07-01-2020 one touch Discontinued 0 .Ro em[place] .MEDSUPPLY July 01, 2020 11:54am July 01, 2020 2:05pm Use to test blood sugar 3 times a day and PRN Start: 07-01-2020 End: 07-01-2020 one touch Discontinued 0 .Ro emmonak .MEDSUPPLY July 01, 2020 12:54pm July 01, 2020 3:05pm Use to test blood sugar 3 times a day and PRN Start: 07-01-2020 End: 07-01-2020 one touch Discontinued 0 .Ro emmonak .MEDSUPPLY 1 July 01, 2020 12:52pm July 01, 2020 12:54pm Type 2 diabetes mellitus without complications diabetes Use to test blood sugar 3 times a day and PRN Start: 07-01-2020 End: 07-01-2020 one touch Discontinued 0 .Ro emmonak .MEDSUPPLY July 01, 2020 11:52am July 01, 2020 11:54am Use to test blood sugar 3 times a day and PRN Start: 07-01-2020 End: 07-01-2020 one touch Discontinued 0 .Ro emmonak .MEDSUPPLY 1 July 01, 2020 12:52pm July 01, 2020 12:54pm Use to test blood sugar 3 times a day and PRN Start: 07-01-2020 End: 07-01-2020 one touch Discontinued 0 .Ro emmonak .MEDSUPPLY 1 0 July 01, 2020 1:00am July 01, 2020 12:52pm Type 2 diabetes mellitus without complications diabetes Use to test blood sugar 3 times a day and PRN Start: 07-01-2020 End: 07-01-2020 one touch Discontinued 0 .Ro emmonak .MEDSUPPLY 1 July 01, 2020 12:00am July 01, 2020 11:52am Use to test blood sugar 3 times a day and PRN Start: 07-01-2020 End: 07-01-2020 one touch Discontinued 0 .Ro emmonak .MEDSUPPLY 1 July 01, 2020 1:00am July 01, 2020 12:52pm Use to test blood sugar 3 times a day and PRN one touch ULTRA BLUE (20 sources) Start: 04-13-2021 End: 04-20-2021 one touch ULTRA BLUE Discont inued 0 .Route .MEDSUPPLY 100 April 13, 2021 4:53pm April 20, 2021 1:52pm Type 2 diabetes mellitus without complications diabetes Use to test blood sugar 3 times a day Start: 04-13-2021 End: 04-20-2021 one touch ULTRA BLUE Discont inued 0 .Route .MEDSUPPLY April 13, 2021 3:53pm April 20, 2021 12:52pm Use to test blood sugar 3 times a day Start: 04-13-2021 End: 04-20-2021 one touch ULTRA BLUE Discont inued 0 .Route .MEDSUPPLY April 13, 2021 4:53pm April 20, 2021 1:52pm Use to test blood sugar 3 times a day Start: 04-13-2021 End: 04-13-2021 one touch ULTRA BLUE Discont inued 0 .Route .MEDSUPPLY 100 5 April 13, 2021 4:12pm April 13, 2021 4:53pm Type 2 diabetes mellitus without complications diabetes Use to test blood sugar 3 times a day Start: 04-13-2021 End: 04-13-2021 one touch ULTRA BLUE Discont inued 0 .Route .MEDSUPPLY 100 April 13, 2021 3:12pm April 13, 2021 3:53pm Use to test blood sugar 3 times a day Start: 04-13-2021 End: 04-13-2021 one touch ULTRA BLUE Discont inued 0 .Route .MEDSUPPLY 100 April 13, 2021 4:12pm April 13, 2021 4:53pm Use to test blood sugar 3 times a day Start: 04-13-2021 End: 04-13-2021 one touch ULTRA BLUE Discont inued 0 .Route .MEDSUPPLY 100 5 April 13, 2021 9:02am April 13, 2021 4:12pm Type 2 diabetes mellitus without complications diabetes Use to test blood sugar 3 times a day and PRN Start: 04-13-2021 End: 04-13-2021 one touch ULTRA BLUE Discont inued 0 .Route .MEDSUPPLY 100 April 13, 2021 8:02am April 13, 2021 3:12pm Use to test blood sugar 3 times a day and PRN Start: 04-13-2021 End: 04-13-2021 one touch ULTRA BLUE Discont inued 0 .Route .MEDSUPPLY 100 April 13, 2021 9:02am April 13, 2021 4:12pm Use to test blood sugar 3 times a day and PRN Start: 07-01-2020 End: 04-13-2021 one touch ULTRA BLUE Discont inued 0 .Route .MEDSUPPLY 100 5 July 01, 2020 3:04pm April 13, 2021 9:02am Type 2 diabetes mellitus without complications diabetes Use to test blood sugar 3 times a day and PRN Start: 07-01-2020 End: 04-13-2021 one touch ULTRA BLUE Discont inued 0 .Route .MEDSUPPLY 100 July 01, 2020 2:04pm April 13, 2021 8:02am Use to test blood sugar 3 times a day and PRN Start: 07-01-2020 End: 04-13-2021 one touch ULTRA BLUE Discont inued 0 .Route .MEDSUPPLY 100 July 01, 2020 3:04pm April 13, 2021 9:02am Use to test blood sugar 3 times a day and PRN oxyCODONE hydrochloride 5 mg oral tablet (20 sources) Opioid Agonist Start: 05-02-2022 End: 05-22-2023 take 1 tablet by mouth twice daily as needed Oxycodone 5 mg tablet Discontinued 5 mg PO TWICE A DAY as needed 0 May 02, 2022 1:00am May 22, 2023 10:00am Start: 04-17-2021 End: 02-09-2022 take 1 tablet by mouth twice daily as needed Oxycodone 5 mg tablet Discontinued 5 mg PO TWICE A DAY as needed April 17, 2021 1:00am February 09, 2022 10:28am Start: 04-27-2020 End: 02-27-2021 take 5-10 mg by mouth every six hours as needed for pain Oxycodone 5 mg tablet Discontinued 5 - 10 mg PO EVERY 6 HOURS as needed for Pain Score 6-10/10 56 0 May 30, 2020 February 27, 2021 2:43pm Other acute postprocedural pain Start: 04-19-2020 End: 04-27-2020 take 1-2 tablets by mouth every four hours as needed for pain Oxycodone 5 MG tablet Discontinued 5 mg PO EVERY 4 HOURS NEEDED as needed for Pain Score 6-10 60 0 April 19, 2020 April 27, 2020 1:44pm Other acute postprocedural pain 1-2 tabs by mouth every 4 hrs as needed for pain permethrin 50 mg/ml topical cream (19 sources) Pyrethroid Start: 10-19-2022 End: 06-25-2024 Permethrin 5 % cream Discontinued 1 NMA TOPICAL Q14D 60 0 October 19, 2022 12:00am June 25, 2024 10:11am apply second treatment 14 days after first treatment as instructed polyethylene glycol [id number] [id number] mg / potassium chloride 2980 mg / sodium bicarbonate 6720 mg / sodium chloride 5840 mg / sodium sulfate 91763 mg powder for oral solution (20 sources) Osmotic Laxative Start: 07-23-2017 End: 10-28-2017 Peg 3350-Electrolytes 240-22.72-6.72 -5.84 gram recon soln Discontinued PO 1 0 July 23, 2017 12:00am October 28, 2017 2:38pm Start: 07-23-2017 End: 10-28-2017 Peg 3350-Electrolytes Discon tinued PO 1 July 23, 2017 12:00am October 28, 2017 2:38pm Potassium, Sodium Phosphates (11 sources) Start: 03-25-2022 End: 04-09-2022 Potassium, Sodium Phosphates Discontinued 1 PACKET PO 4 TIMES DAILY 4 March 25, 2022 1:00am April 09, 2022 10:19am Start: 03-25-2022 End: 04-09-2022 Potassium, Sodium Phosphates Discontinued 1 PACKET PO 4 TIMES DAILY 4 March 25, 2022 12:00am April 09, 2022 9:19am Start: 03-25-2022 Potassium, Sod ium Phosphates Active 1 PACKET PO 4 TIMES DAILY 4 March 25, 2022 12:00am Potassium, Sodium Phosphates 280-160-250 mg Powder In Packet (13 sources) Start: 03-25-2022 End: 04-09-2022 Potassium, Sodium Phosphates 280-160-250 mg Powder In Packet Discontinued 1 NMA PO 4 TIMES DAILY 4 1 March 25, 2022 1:00am April 09, 2022 10:19am Start: 03-25-2022 End: 04-09-2022 Potassium, Sodium Phosphates 280-160-250 mg Powder In Packet Discontinued 1 NMA PO 4 TIMES DAILY 4 March 25, 2022 1:00am April 09, 2022 10:19am SITagliptin 100 mg oral tablet (20 sources) Dipeptidyl Peptidase 4 Inhibitor Start: 07-03-2021 End: 02-09-2022 take 1 tablet by mouth once daily Sitagliptin Phosphate 100 mg tablet Discontinued 100 mg PO DAILY 30 July 03, 2021 1:00am February 09, 2022 10:28am Start: 03-30-2020 End: 03-31-2020 take 1 tablet by mouth once daily Sitagliptin Phosphate (Januvia) 50 mg tablet Discontinued 50 mg PO DAILY 30 March 30, 2020 1:00am March 31, 2020 2:41pm sodium bicarbonate 650 mg oral tablet (20 sources) Start: 08-20-2019 End: 11-25-2019 take 1 tablet by mouth three times daily Sodium Bicarbonate 650 MG tablet Discontinued 650 mg PO THREE TIMES A DAY 90 0 August 20, 2019 12:00am November 25, 2019 10:02am 20 ml sodium chloride 9 mg/ml injection (1 source) Start: 05-02-2023 End: 05-02-2023 Sodium chloride (PF) 0.9 % injection 1-250 mL Start: 05-02-2023 End: 05-02-2023 Sodium chloride (PF) 0.9 % i njection 1-250 mL traMADol hydrochloride 50 mg oral tablet (20 sources) Opioid Agonist Start: 09-16-2024 End: 09-16-2024 take 1 tablet by mouth three times daily as needed Tramadol 50 mg tablet Discontinued 50 mg PO THREE TIMES A DAY as needed September 16, 2024 12:00am September 16, 2024 4:41pm Start: 07-01-2023 End: 09-16-2024 take 1 tablet by mouth once daily as needed for pain Tramadol 50 mg tablet Discontinued 50 mg PO DAILY as needed for pain 3 0 July 01, 2023 1:00am September 16, 2024 3:57pm Laceration of finger Problems Active Problems Problem Classification Problem Date Documented Date Episodic/Chronic Acquired foot deformities (1 source) Hammer toe; Translations: [Other hammer toe(s) (acquired), left foot] Onset: 0 05-07-2019 Chronic Acute and unspecified renal failure (20 sources) Renal failure syndrome; Translations: [Unspecified kidney failure] Chronic Acute and unspecified renal failure (20 sources) Injury of kidney; Translations: [Acute kidney failure, unspecified] 08-19-2019 Episodic Allergic reactions (20 sources) Inflammatory dermatosis; Translations: [Dermatitis, unspecified] 11-06-2021 Episodic Anxiety disorders (20 sources) Mixed anxiety and depressive disorder; Translations: [Anxiety disorder, unspecified] Chronic Chronic kidney disease (20 sources) Chronic kidney disease stage 3; Translations: [Stage 3 chronic kidney disease] Chronic Chronic kidney disease (1 source) Chronic kidney disease; Translations: [Chronic kidney disease, stage 3a] Onset: 5 Coronary atherosclerosis and other heart disease (20 sources) Coronary atherosclerosis; Translations: [Atherosclerotic heart disease of [place] coronary artery without angina pectoris] 11-10-2018 Chronic Delirium, dementia, and amnestic and other cognitive disorders (20 sources) Dementia; Translations: [Unspecified dementia without behavioral disturbance] Onset: 5 08-21-2023 Chronic Diabetes mellitus with complications (5 sources) Hyperglycemia due to type 2 diabetes mellitus; Translations: [Type 2 diabetes mellitus with hyperglycemia] Onset: 3 10-25-2022 Chronic Diabetes mellitus without complication (20 sources) Type 2 diabetes mellitus without complication; Translations: [Type 2 diabetes mellitus without complications] Onset: 0 05-07-2019 Chronic Disorders of lipid metabolism (20 sources) Mixed hyperlipidemia; Translations: [Mixed hyperlipidemia] 05-06-2019 Chronic Diverticulosis and diverticulitis (20 sources) Diverticulitis of large intestine; Translations: [Diverticulitis of large intestine without perforation or abscess without bleeding] 06-05-2018 Chronic E Codes: Fall (20 sources) Fall on same level from slipping, tripping or stumbling ; Translations: [Fall on same level from slipping, tripping and stumbling without subsequent striking against object, initial encounter] 07-20-2021 Episodic Essential hypertension (20 sources) Essential hypertension; Translations: [Essential (primary) hypertension] Chronic Fluid and electrolyte disorders (20 sources) Dehydration; Translations: [Dehydration] 08-19-2019 Episodic Fracture of upper limb (19 sources) Fracture of distal end of radius; Translations: [Unspecified fracture of the lower end of right radius, initial encounter for closed fracture] 06-25-2022 Episodic Immunizations and screening for infectious disease (20 sources) Needs influenza immunization; Translations: [Encounter for immunization] 02-03-2021 Episodic Inflammatory conditions of male genital organs (20 sources) Epididymitis; Translations: [Epididymitis] 05-01-2019 Episodic Malaise and fatigue (20 sources) Asthenia; Translations: [Weakness] 08-19-2019 Episodic Malignant neoplasm without specification of site (1 source) Malignant neuroendocrine tumor; Translations: [Other malignant neuroendocrine tumors] Chronic Neoplasms of unspecified nature or uncertain behavior (20 sources) Neoplasm of pancreas; Translations: [Neoplasm of unspecified behavior of digestive system] 05-15-2022 Episodic Open wounds of extremities (17 sources) Laceration of finger; Translations: [Laceration without foreign body of unspecified finger without damage to nail, initial encounter] 06-29-2023 Episodic Other aftercare (20 sources) H/O: high risk medication; Translations: [Other fci (current) drug therapy] 06-05-2018 Episodic Other and unspecified benign neoplasm (3 sources) Neuroendocrine tumor of pancreas; Translations: [Other benign neuroendocrine tumors] 10-25-2022 Episodic Other and unspecified benign neoplasm (14 sources) Change in skin lesion; Translations: [Melanocytic nevi, unspecified] 07-12-2023 Episodic Other and unspecified benign neoplasm (2 sources) Melanocytic nevi, unspecified; Translations: [Benign neoplasm of skin, site unspecified] 07-12-2023 Episodic Other circulatory disease (20 sources) History of cardiovascular surgery; Translations: [Presence of other cardiac implants and grafts] 11-04-2020 Chronic Comment on above: Loop recorder Explan t 11/04/20 Other circulatory disease (20 sources) Peripheral arterial occlusive disease; Translations: [Disorder of arteries and arterioles, unspecified] 08-19-2019 Chronic Other circulatory disease (2 sources) Presence of other cardiac implants and grafts; Translations: [Other specified cardiac device in situ] 05-02-2022 Chronic Other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 his primary care physician. The patient is very confused about his medications he had a typed out list but he was not sure if he was taking all of them or if he was missing some of them. I have asked him to make certain he takes all of his medicines in the bottles when he goes to see Dr. Casas in the next month. The patient reports he is very active in his home environment he is out working in the yard and denies any drop-off in his exercise tolerance. Intake Vital Signs 06/25/24 09:02 09/16/24 16:04 10/16/24 13:59 Height 5 ft 11 in 5 ft 11 in 5 ft 11 in Weight: 168 lb BMI 23.4 BP 144/82 H Blood Pressure Location Lt brachial Position Sitting Respiration 18 Pulse 71 Pulse Source Monitor Pulse Oximetry (%) 95 Oxygen Delivery Method room air Intake Visit Reasons: 1 Y FU Timekeeping Supervisor Required: No Accompanied by: Self Is patient in pain?: No Allergies iodine Allergy (Unknown, Verified 10/16/24 14:00) convulsions codeine Allergy (Verified 10/16/24 14:00) Itching Medications ???Medication ???Instructions ???Recorded ???Confirmed ???Type lancets #100 ea 08/14/21 09/16/24 Rx aspirin 81 mg capsule 81 mg PO DAILY 30 days #30 caps 10/16/24 Rx docusate sodium 50 mg capsule 50 mg PO DAILY 04/09/22 10/16/24 H istory duloxetine 60 mg capsule,delayed 60 mg PO DAILY mental health 04/0910/16/24 History release amlodipine 10 mg tablet 10 mg PO DAILY #90 TABLETS 5 10/16/24 Rx atorvastatin 80 mg tablet 80 mg PO QHS cholesterol lowering 06/10/24 10/16/24 Rx #90 tabs glimepiride 4 mg tablet 4 mg PO BID 06/25/24 10/16/24 Hist ory metformin 500 mg tablet 500 mg PO BID 06/25/24 10/16/24 Hi story trazodone 100 mg tablet 200 mg PO QHS 06/25/24 10/16/24 Hi story hydroxyzine pamoate 25 mg capsule 25 mg PO QHS PRN for itch #60 cap s 08/19/24 10/16/24 Rx gabapentin 100 mg capsule 100 mg PO BID nerve pain #180 caps 09/16/24 10/16/24 Rx lidocaine 5 % topical patch 1 patch topical QDAY #30 ea 09/16/24 Rx levothyroxine 25 mcg tablet 25 mcg PO QDAY #30 tabs 09/23/24 Rx (Levoxyl) donepezil 10 mg tablet 10 mg PO QHS #90 tabs 09/24/24 Rx memantine 14 mg capsule 14 mg PO QAM #90 ea 09/24/2410/16 Rx sprinkle,extended release 24hr blood sugar diagnostic (Contour #100 ea 10/01/24 Rx Next Test Strips) Ejection fraction %: 55 Have you fallen in the past year?: Yes [facility] Medical History Rib pain on left side Dysuria Dementia Change in skin mole Cellulitis Memory impairment Toe pain Scabies Right wrist pain Fracture of right distal radius Pancreas neoplasm Urticaria Anxiety and depression Abnormal EKG Dermatitis Numbness of left foot Preoperative evaluation to rule out surgical contraindication Flu vaccine need CKD (chronic kidney disease), stage III Vision problems Heart disease Hearing loss Arthritis Essential hypertension Mixed hyperlipidemia Peripheral arterial occlusive disease Long-term use of high-risk medication History of pulmonary embolism Ankle fracture Chronic back pain Depression Atherosclerotic heart disease of [place] coronary artery without angina pectoris Orthostatic hypotension Syncope and collapse Severe sepsis with acute organ dysfunction Diverticulitis large intestine Hyperkalemia Acute renal failure Altered mental status Type II diabetes mellitus Surgical History History of right shoulder (more content not included)... Normal [facility] L3410.9992on 10-07-2024 [facility] Misc. COMMENT Normal . [facility] Comment on above: Order Comment: [id number] [id number] SCREEN Result Comment: Test Ordered: [id number] Amphetamines Screen, Urine Note: ng/mL UI See Final Results Reference Range: Zsfcqn=878 Amphetamine test includes Amphetamine and Methamphetamine. Amphetamines Negative UI Reference Range: Cmxsjl=930 Amphetamine test includes Amphetamine and Methamphetamine. Barbiturates Negative ng/mL UI Reference Range: Tckdua=957 Benzodiazepines Negative ng/mL UI Reference Range: Xbalnl=821 Cocaine (Metab.), Urine Negative ng/mL UI Reference Range: Puwomi=970 Opiates Note: ng/mL UI See Final Results Reference Range: Myzefp=984 Opiate test includes Codeine, Morphine, Hydromorphone, Hydrocodone. Opiates Positive [A ] UI Reference Range: Yiwdja=723 Opiate test includes Codeine, Morphine, Hydromorphone, Hydrocodone. Codeine Positive [A ] UI Reference Range: . Codeine Conf, MS, UR >3000 ng/mL UI Reference Range: Aqfoea=144 Morphine Positive [A ] UI Reference Range: . Morphine Conf, MS, UR 447 ng/mL UI Reference Range: Ojhwll=253 Hydromorphone Negative UI Reference Range: Cfttfq=276 Hydrocodone Negative UI Reference Range: Dyayge=397 6-Acetylmorphine, Urine Negative ng/mL UI Reference Range: Cutoff=10 Oxycodone/Oxymorphone, Urine Negative ng/mL UI Reference Range: Udaojn=956 Test includes Oxycodone and Oxymorphone PCP, Urine Negative ng/mL UI Reference Range: Cutoff=25 Methadone Screen, Urine Negative ng/mL UI Reference Range: Iahtvj=894 Propoxyphene, Urine Negative ng/mL UI Reference Range: Botihx=799 Fentanyl, Urine Negative ng/mL UI Reference Range: Cutoff=2.0 Test includes Fentanyl and Norfentanyl This test was developed and its performance characteristics determined by [facility]. It has not been cleared or approved by the Food and Drug Administration. Tramadol Note: ng/mL UI See Final Results Reference Range: Sffhub=404 Tramadol Positive [A ] UI Reference Range: Igrpym=060 Tramadol Conf, MS, UR >[address] ng/mL UI Reference Range: Tezloz=521 Buprenorphine, Urine Negative ng/mL UI Reference Range: Cutoff=10 Creatinine, Urine 86.2 mg/dL UI Reference Range: 20.0-300.0 pH, Urine 5.2 UI Reference Range: 4.5-8.9 Performed at: [place] [id number] [place], [place] [id number] [employer]: Lindy Becerra PhD, Phone: [phone] Performed at: [address] [id number] [employer]: Stu Nguyen PhD, Phone: [phone] Performed By: #### L 400.0001, L500.4050, L506.0400, L501.9910, L501.9520 #### [facility] [address] [place] [address], [address] Amphetamine detection with 1 000 ng/mL as cutoffOrdered By: Susan Robles on 09-30-2024 Amphetamines Screen method >1000 ng/mL Ql (U) Negative < 200 ng/mL [facility] No Panel InformationOrdered By: Susan Robles on 09-30-2024 Urine Buprenorphine Qualitative Negative < 200 ng/mL [facility] Urine Oxycodone Screen Negative < 100 ng/mL [facility] Quantitative urine opiates m easurementOrdered By: Susan Robles on 09-30-2024 Opiates Ql (U) Positive < 300 ng/mL [facility] Comment on above: If confirmation test ing is needed, a separate order will be required to send out testing to the reference laboratory. Screening urine fentanyl braulio surementOrdered By: Susan Robles on 09-30-2024 fentaNYL Screen Ql (U) Negative [facility] Urine Drug Screen (VISTA)on 09-30-2024 AMPHETAMINES Negative Normal <1000 ng/mL [facility] Comment on above: Order Comment: UNK Performed By: #### L 400.0001, L500.4050, L506.0400, L501.9910, L501.9520 #### [facility] [address] [place] [address] BARBITIURATES Negative Normal < 200 ng/mL [facility] Comment on above: Order Comment: UNK Performed By: #### L 400.0001, L500.4050, L506.0400, L501.9910, L501.9520 #### [facility] [address] [place] [id number] BENZODIAZIPINE Negative Normal < 200 ng/mL [facility] Comment on above: Order Comment: UNK Performed By: #### L 400.0001, L500.4050, L506.0400, L501.9910, L501.9520 #### [facility] [address] [facility] [address] BUP Ur Drug Scr Negative Normal < 200 ng/mL [facility] Comment on above: Order Comment: UNK Performed By: #### L 400.0001, L500.4050, L506.0400, L501.9910, L501.9520 #### [facility] [address] [facility] [address] COCAINE Negative Normal < 300 ng/mL [facility] Comment on above: Order Comment: UNK Performed By: #### L 400.0001, L500.4050, L506.0400, L501.9910, L501.9520 #### [facility] [address] [place], [address] Fentanyl Negative Normal [facility] Comment on above: Order Comment: UNK Performed By: #### L 400.0001, L500.4050, L506.0400, L501.9910, L501.9520 #### [facility] [address] [place], [address] METHADONE Negative Normal < 300 ng/mL [facility] Comment on above: Order Comment: UNK Performed By: #### L 400.0001, L500.4050, L506.0400, L501.9910, L501.9520 #### [facility] [address] [place], [place], [facility] OPIATES Positive Normal < 300 ng/mL [facility] Comment on above: Order Comment: UNK Result Comment: If c onfirmation testing is needed, a separate order will be required to send out testing to the reference laboratory. Performed By: #### L 400.0001, L500.4050, L506.0400, L501.9910, L501.9520 #### [facility] [address] [place], [address] OXYCODONE Negative Normal < 100 ng/mL [facility] Comment on above: Order Comment: UNK Performed By: #### L 400.0001, L500.4050, L506.0400, L501.9910, L501.9520 #### [facility] [address] [place], [address] PCP Negative Normal < 25 ng/mL [facility] Comment on above: Order Comment: UNK Performed By: #### L 400.0001, L500.4050, L506.0400, L501.9910, L501.9520 #### [facility] [address] [place], [address] THC Negative Normal < 50 ng/mL [facility] Comment on above: Order Comment: UNK Performed By: #### L 400.0001, L500.4050, L506.0400, L501.9910, L501.9520 #### [facility] [address] [place], [address] Urine benzodiazepine levelOr dered By: neal Basali on 09-30-2024 Benzodiazepines Ql (U) Negative < 200 ng/mL [facility] Urine cocaine levelOrdered B y: Ayman Basali on 09-30-2024 Cocaine Ql (U) Negative < 300 ng/mL [facility] Urine dsexr-4-uuycyphkepuqrp abinol (THC) measurementOrdered By: [facility] Basali on 09-30-2024 Cannabinoids Screen Ql (U) Negative < 50 ng/mL [facility] Urine phencyclidine (PCP) de tectionOrdered By: [facility] Basali on 09-30-2024 Phencyclidine Ql (U) Negative < 25 ng/mL [facility] + Protein Elect, Serumon 09-29-2024 A/G RATIO TNP Normal . [facility] Comment on above: Order Comment: NO VR O!! TIGER STILL IN LAB DRAWN 09/22. PT COULD NOT GIVE SAMPLE. AND DID NOT KNOW WHEN HE WOULD RETURN. ACTUALLY CAME BACK TODAY TO GIVE SAMPLE.09/23 N Performed By: #### L 3600.4030, L3100.3425 #### [facility] [address] [place], [address] ALBUMIN TNP Normal . [facility] Comment on above: Order Comment: NO VR O!! TIGER STILL IN LAB DRAWN 09/22. PT COULD NOT GIVE SAMPLE. AND DID NOT KNOW WHEN HE WOULD RETURN. ACTUALLY CAME BACK TODAY TO GIVE SAMPLE.09/23 N Result Comment: Test not performed Performed By: #### L 3600.4030, L3100.3425 #### [facility] [address] [place], [address] [id number] TNP Normal . [facility] Comment on above: Order Comment: NO VR O!! TIGER STILL IN LAB DRAWN 09/22. PT COULD NOT GIVE SAMPLE. AND DID NOT KNOW WHEN HE WOULD RETURN. ACTUALLY CAME BACK TODAY TO GIVE SAMPLE.09/23 N Result Comment: Test not performed Performed By: #### L 3600.4030, L3100.3425 #### [facility] [address] [place], [address] [id number] TNP Normal . [facility] Comment on above: Order Comment: NO VR O!! TIGER STILL IN LAB DRAWN 09/22. PT COULD NOT GIVE SAMPLE. AND DID NOT KNOW WHEN HE WOULD RETURN. ACTUALLY CAME BACK TODAY TO GIVE SAMPLE.09/23 N Result Comment: Test not performed Performed By: #### L 3600.4030, L3100.3425 #### [facility] [address] [place], [address] BETA GLOBULIN TNP Normal . [facility] Comment on above: Order Comment: NO VR O!! TIGER STILL IN LAB DRAWN 09/22. PT COULD NOT GIVE SAMPLE. AND DID NOT KNOW WHEN HE WOULD RETURN. ACTUALLY CAME BACK TODAY TO GIVE SAMPLE.09/23 N Result Comment: Test not performed Performed By: #### L 3600.4030, L3100.3425 #### [facility] [address] [place], [address] GAMMA GLOBULIN TNP Normal . [facility] Comment on above: Order Comment: NO VR O!! TIGER STILL IN LAB DRAWN 09/22. PT COULD NOT GIVE SAMPLE. AND DID NOT KNOW WHEN HE WOULD RETURN. ACTUALLY CAME BACK TODAY TO GIVE SAMPLE.09/23 N Result Comment: Test not performed Performed By: #### L 3600.4030, L3100.3425 #### [facility] [address] [place], [address] GLOBULIN, TOTAL TNP Normal . [facility] Comment on above: Order Comment: NO VR O!! TIGER STILL IN LAB DRAWN 09/22. PT COULD NOT GIVE SAMPLE. AND DID NOT KNOW WHEN HE WOULD RETURN. ACTUALLY CAME BACK TODAY TO GIVE SAMPLE.09/23 N Performed By: #### L 3600.4030, L3100.3425 #### [facility] [address] [place], [address] LOUIS RESULT,S TNP Normal . [facility] Comment on above: Order Comment: NO VR O!! TIGER STILL IN LAB DRAWN 09/22. PT COULD NOT GIVE SAMPLE. AND DID NOT KNOW WHEN HE WOULD RETURN. ACTUALLY CAME BACK TODAY TO GIVE SAMPLE.09/23 N Result Comment: Test not performed Performed By: #### L 3600.4030, L3100.3425 #### [facility] [address] [place], [place], [address] IMMUNOGLOB A QN TNP Normal . [facility] Comment on above: Order Comment: NO VR O!! TIGER STILL IN LAB DRAWN 09/22. PT COULD NOT GIVE SAMPLE. AND DID NOT KNOW WHEN HE WOULD RETURN. ACTUALLY CAME BACK TODAY TO GIVE SAMPLE.09/23 N Result Comment: Test not performed Performed By: #### L 3600.4030, L3100.3425 #### [facility] [address] [place], [address] IMMUNOGLOB G QN TNP Normal . [facility] Comment on above: Order Comment: NO VR O!! TIGER STILL IN LAB DRAWN 09/22. PT COULD NOT GIVE SAMPLE. AND DID NOT KNOW WHEN HE WOULD RETURN. ACTUALLY CAME BACK TODAY TO GIVE SAMPLE.09/23 N Result Comment: Test not performed. No serum gel received. CONTACTED YOUR FACILITY VIA EMAIL ON 09-25-2024 Performed By: #### L 3600.4030, L3100.3425 #### [facility] [address] [place], [address] IMMUNOGLOB M QN TNP Normal . [facility] Comment on above: Order Comment: NO VR O!! TIGER STILL IN LAB DRAWN 09/22. PT COULD NOT GIVE SAMPLE. AND DID NOT KNOW WHEN HE WOULD RETURN. ACTUALLY CAME BACK TODAY TO GIVE SAMPLE.09/23 N Result Comment: Test not performed Performed By: #### L 3600.4030, L3100.3425 #### [facility] [address] [place], [address] M-Pelon TNP Normal . [facility] Comment on above: Order Comment: NO VR O!! TIGER STILL IN LAB DRAWN 09/22. PT COULD NOT GIVE SAMPLE. AND DID NOT KNOW WHEN HE WOULD RETURN. ACTUALLY CAME BACK TODAY TO GIVE SAMPLE.09/23 N Performed By: #### L 3600.4030, L3100.3425 #### [facility] [address] [place], [address] NOTE: TNP Normal . [facility] Comment on above: Order Comment: NO VR O!! TIGER STILL IN LAB DRAWN 09/22. PT COULD NOT GIVE SAMPLE. AND DID NOT KNOW WHEN HE WOULD RETURN. ACTUALLY CAME BACK TODAY TO GIVE SAMPLE.09/23 N Performed By: #### L 3600.4030, L3100.3425 #### [facility] [address] [place], [address] PROTEIN,TOTAL TNP Normal . [facility] Comment on above: Order Comment: NO VR O!! TIGER STILL IN LAB DRAWN 09/22. PT COULD NOT GIVE SAMPLE. AND DID NOT KNOW WHEN HE WOULD RETURN. ACTUALLY CAME BACK TODAY TO GIVE SAMPLE.09/23 N Result Comment: Test not performed Performed By: #### L 3600.4030, L3100.3425 #### [facility] [address] [place], [address] Immunofixation Urineon 09-29 [place] Urine Comment Normal . [facility] Comment on above: Order Comment: NO VR O!! TIGER STILL IN LAB DRAWN 09/22. PT COULD NOT GIVE SAMPLE. AND DID NOT KNOW WHEN HE WOULD RETURN. ACTUALLY CAME BACK TODAY TO GIVE SAMPLE.09/23 Result Comment: No m onoclonality detected. Performed By: #### L 3600.4030, L3100.3425 #### [facility] [place], [address] Albumin Elph [Mass/Vol]Order ed By: Hussein Waldron on 09-23-2024 Albumin [facility]Mass/[facility]] [facility] Test not performedTe st not performed Bilirubin Test strip Ql (U)O rdered By: Svetlana Casas on 09-23-2024 Bilirubin Ql (U) Negative Negative [facility] Interpretation of serum or p lasma protein pattern by immunofixation (narrative resultOrdered By: Hussein Waldron on 09-23-2024 Protein Fractions Immunofixation Ramón [Interp] [facility] Comment on above: Test not performed Ketones Test strip Ql (U)Ord ered By: Svetlana Casas on 09-23-2024 Ketones Ql (U) 5 mg/dl High Negative [facility] Microscopic analysis of urin e for red blood cells (RBC)Ordered By: Svetlana Casas on 09-23-2024 Microscopic analysis of urine for red blood cells (RBC) Not Reportable [facility] Mucus LM Ql (Urine sed)Order ed By: Svetlana Casas on 09-23-2024 Mucus Ql (Urine sed) 0 SEEN /hpf [facility] Nitrite Test strip Ql (U)Ord ered By: Svetlana Casas on 09-23-2024 Nitrite Ql (U) Negative Negative [facility] No Panel InformationOrdered By: Hussein Waldron on 09-23-2024 Addendum Document [facility] Comment on above: Test not performed Protein Test strip Ql (U)Ord ered By: Svetlana Casas on 09-23-2024 Protein Ql (U) 100 mg/dl High Negative [facility] Serum globulin measurement ( mass/volume)Ordered By: Hussein Waldron on 09-23-2024 Globulin (S) [Mass/Vol] TNP [facility] Comment on above: Test not performed Serum or plasma IgA measurem ent (mass/volume)Ordered By: Hussein Waldron on 09-23-2024 IgA [Mass/Vol] [facility] Comment on above: Test not performedTe st not performed Serum or plasma IgG measurem ent (mass/volume)Ordered By: Hussein Waldron on 09-23-2024 IgG [Mass/Vol] [facility] Comment on above: Test not performedTe st not performed. No serum gel received.CONTACTED YOUR FACILITY VIA EMAIL ON 09-25-2024 Serum or plasma alpha 1 glob ulin measurement by electrophoresis (mass/volume)Ordered By: Hussein Waldron on 09-23-2024 Alpha 1 globulin Elph [Mass/Vol] [facility] Comment on above: Test not performedTe st not performed Serum or plasma beta globuli n measurement by electrophoresis (mass/volume)Ordered By: Hussein Waldron on 09-23-2024 Beta globulin Elph [Mass/Vol] [facility] Comment on above: Test not performedTe st not performed Serum or plasma gamma globul in measurement by electrophoresis (mass/volume)Ordered By: Hussein Waldron on 09-23-2024 Gamma globulin Elph [Mass/Vol] [facility] Comment on above: Test not performedTe st not performed Serum or plasma immunoelectr ophoresis interpretation (nominal result)Ordered By: Hussein Waldron on 09-23-2024 Interpretation IEP [Interp] [facility] Comment on above: Test not performedTe st not performed Serum or plasma protein candice urement (mass/volume)Ordered By: Hussein Waldron on 09-23-2024 Protein [Mass/Vol] [facility] Comment on above: Test not performedTe st not performed Squamous epithelial cells de tection in urine sediment by light microscopyOrdered By: Svetlana Casas on 09-23-2024 Epithelial cells.squamous LM Ql (Urine sed) 0-5 SEEN /hpf 0-5 [facility] Urinalysis, Completeon 09-23 BACTERIA RARE Normal None Seen [facility] Comment on above: Order Comment: TP CO ULDN'T VOID 09/22. CAME BACK TODAY. URINE FOR 2 DOCTORS.VENEER JOINTER OFFBEARER TO SPECIFY Performed By: #### L 400.0001, L500.4050, L506.0400, L501.9910, L501.9520 #### [facility] [address] [place], [address] EPI,SQUAMOUS 0-5 SEEN Normal 0-5 [facility] Comment on above: Order Comment: TP CO ULDN'T VOID 09/22. CAME BACK TODAY. URINE FOR 2 DOCTORS.VENEER JOINTER OFFBEARER TO SPECIFY Performed By: #### L 400.0001, L500.4050, L506.0400, L501.9910, L501.9520 #### [facility] [address] [place], [address] WBC 0-5 SEEN Normal 0-5 [facility] Comment on above: Order Comment: TP CO ULDN'T VOID 09/22. CAME BACK TODAY. URINE FOR 2 DOCTORS.VENEER JOINTER OFFBEARER TO SPECIFY Performed By: #### L 400.0001, L500.4050, L506.0400, L501.9910, L501.9520 #### [facility] [address] [place], [address] Mucus Ql (Urine sed) 0 SEEN Normal [facility] Comment on above: Order Comment: TP CO ULDN'T VOID 09/22. CAME BACK TODAY. URINE FOR 2 DOCTORS.VENEER JOINTER OFFBEARER TO SPECIFY Performed By: #### L 400.0001, L500.4050, L506.0400, L501.9910, L501.9520 #### [facility] [address] [place], [address] Urine clarityOrdered By: Christoph Casas on 09-23-2024 Clarity (U) Clear Clear [facility] Urine color determinationOrd ered By: Svetlana Casas on 09-23-2024 Color (U) Yellow Yellow [facility] Urine glucose detectionOrder ed By: Svetlana Casas on 09-23-2024 Glucose Ql (U) Normal mg/dl Normal [facility] Urine leukocyte esterase det ection by dipstickOrdered By: Svetlana Casas on 09-23-2024 Leukocyte esterase Test strip Ql (U) Negative Negative [facility] Urine pHOrdered By: Sasha Casas on 09-23-2024 pH (U) 6.5 [pH] 5.0 - 8.0 [facility] Urine sediment bacteria coun t by microscopy (number/high power field)Ordered By: Svetlana Casas on 09-23-2024 Bacteria LM.HPF (Urine sed) [#/Area] RARE /hpf None Seen [facility] Urine specific gravity measu rementOrdered By: Svetlana Casas on 09-23-2024 Specific gravity (U) [Rel density] 1.010 1.002-1.03 0 [facility] Urine urobilinogen measureme ntOrdered By: Svetlana Casas on 09-23-2024 Urobilinogen Ql (U) Normal mg/dl Normal [facility] White blood cell countOrdere d By: Svetlana Casas on 09-23-2024 White blood cell count 0-5 SEEN /hpf 0-5 [facility] Anion gap in Serum or Plasma Ordered By: Svetlana Casas on 09-22-2024 Anion gap [Moles/Vol] 14 mmol/L 5-15 [facility] BUN/creatinine ratioOrdered By: Svetlana Casas on 09-22-2024 Urea nitrogen/Creatinine [Mass ratio] 15.3 mg/mg 10-20 [facility] Bilirubin, totalOrdered By: Svetlana Casas on 09-22-2024 Bilirubin [Mass/Vol] 0.33 mg/dL 0.00-1.30 [facility] Carbon dioxide, total [Moles /volume] in Central venous bloodOrdered By: Svetlana Casas on 09-22-2024 CO2 [Moles/Vol] 22.6 mmol/L 21.0-32.0 [facility] Chloride assayOrdered By: Dameon Casas on 09-22-2024 Chloride [Moles/Vol] 101 mmol/L 98-108 [facility] Comprehensive Metabolic Prof ilon 09-22-2024 Albumin [Mass/Vol] 4.6 g/dL Normal 3.4-4.8 [facility] Comment on above: Performed By: #### L 400.0001, L500.4050, L506.0400, L501.9910, L501.9520 #### [facility] [address] [place], [address] Albumin/Globulin [Mass ratio] 1.6 {ratio} Normal 0.9-2.4 [facility] Comment on above: Performed By: #### L 400.0001, L500.4050, L506.0400, L501.9910, L501.9520 #### [facility] [address] [place], [address] ALK PHOS 113 U/L Normal 40-129 [facility] Comment on above: Performed By: #### L 400.0001, L500.4050, L506.0400, L501.9910, L501.9520 #### [facility] [address] [place], [address] ALT [Catalytic activity/Vol] 53 U/L High <=46 [facility] Comment on above: Performed By: #### L 400.0001, L500.4050, L506.0400, L501.9910, L501.9520 #### [facility] [address] [place], [address] AST [Catalytic activity/Vol] 59 U/L High <=37 [facility] Comment on above: Performed By: #### L 400.0001, L500.4050, L506.0400, L501.9910, L501.9520 #### [facility] [address] [place], [address] Bilirubin [Mass/Vol] 0.33 mg/dL Normal 0.00-1.30 [facility] Comment on above: Performed By: #### L 400.0001, L500.4050, L506.0400, L501.9910, L501.9520 #### [facility] [address] [place], [address] BUN/CRE 15.3 RATIO Normal 10-20 [facility] Comment on above: Performed By: #### L 400.0001, L500.4050, L506.0400, L501.9910, L501.9520 #### [facility] [address] [place], [address] Calcium [Mass/Vol] 9.8 mg/dL Normal 7.6-11.0 [facility] Comment on above: Performed By: #### L 400.0001, L500.4050, L506.0400, L501.9910, L501.9520 #### [facility] [address] [place], [address] Chloride [Moles/Vol] 101 mmol/L Normal 98-108 [facility] Comment on above: Performed By: #### L 400.0001, L500.4050, L506.0400, L501.9910, L501.9520 #### [facility] [address] [place], [address] CO2 [Moles/Vol] 22.6 mmol/L Normal 21.0-32.0 [facility] Comment on above: Performed By: #### L 400.0001, L500.4050, L506.0400, L501.9910, L501.9520 #### [facility] [address] [place], [address] Creatinine [Mass/Vol] 2.07 mg/dL High 0.70-1.20 [facility] Comment on above: Performed By: #### L 400.0001, L500.4050, L506.0400, L501.9910, L501.9520 #### [facility] [address] [place], [address] GAP 14 Normal 5-15 [facility] Comment on above: Performed By: #### L 400.0001, L500.4050, L506.0400, L501.9910, L501.9520 #### [facility] [address] [place], [address] GFR/1.73 sq M.predicted among non-blacks MDRD (S/P/Bld) [Vol rate/Area] 32 mL/min/{1.73_m2} Low >60 [facility] Comment on above: Result Comment: mL/m in/1.73m2 CKD-EPI Creatinine Equation (2020) Performed By: #### L 400.0001, L500.4050, L506.0400, L501.9910, L501.9520 #### [facility] [address] [place], [address] Globulin (S) [Mass/Vol] 2.8 g/dL Normal 2.2-4.2 [facility] Comment on above: Performed By: #### L 400.0001, L500.4050, L506.0400, L501.9910, L501.9520 #### [facility] [address] [place], [address] Glucose [Mass/Vol] 181 mg/dL High 70-99 [facility] Comment on above: Performed By: #### L 400.0001, L500.4050, L506.0400, L501.9910, L501.9520 #### [facility] [address] [place], [address] Potassium [Moles/Vol] 4.8 mmol/L Normal 3.3-5.1 [facility] Comment on above: Performed By: #### L 400.0001, L500.4050, L506.0400, L501.9910, L501.9520 #### [facility] [address] [place], [address] Sodium [Moles/Vol] 137 mmol/L Normal 133-145 [facility] Comment on above: Performed By: #### L 400.0001, L500.4050,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 25.0 BP 128/78 H Blood Pressure Location Rt brachial Position Sitting Respiration 16 Pulse 73 Pulse Source Monitor Temp 96.3 F L Temp Source Temporal Pulse Oximetry (%) 94 Oxygen Delivery Method room air Intake Visit Reasons: 3 M FU Chief Complaint: 3m f/u Timekeeping Supervisor Required: No Accompanied by: Is patient in pain?: No Allergies iodine Allergy (Unknown, Verified 06/10/24 16:02) convulsions codeine Allergy (Verified 06/10/24 16:02) Itching Medications ???Medication ???Instructions ???Recorded ???Confirmed ???Type lancets #100 ea 08/14/21 06/10/24 Rx aspirin 81 mg capsule 81 mg PO DAILY 30 days #30 caps 06/10/24 Rx blood sugar diagnostic (Contour 03/25/22 06/10/24 History Next Test Strips) docusate sodium 50 mg capsule 50 mg PO DAILY 04/09/22 06/10/24 H istory duloxetine 60 mg capsule,delayed 60 mg PO DAILY mental health 04/0906/10/24 History release tizanidine 4 mg capsule 4 mg PO QHS PRN 04/09/22 06/10/24 History trazodone 100 mg tablet 50 mg PO QHS 05/02/22 06/10/24 His tory permethrin 5 % topical cream 1 applic topical Q14D 2 doses #60 10/19/22 06/10/24 Rx grams tramadol 50 mg tablet 50 mg PO DAILY PRN pain #3 tabs 06/10/24 Rx C- PAIN CRM 1 bottle topical 3XD PRN pain 3 06/10/24 Rx months #1 BOTTLE blood sugar diagnostic (Contour #100 ea 01/09/24 06/10/24 Rx Next Test Strips) omeprazole 20 mg capsule,delayed 20 mg PO DAILY acid reflux #90 cap s 01/29/24 06/10/24 Rx release glimepiride 4 mg tablet 6 mg (1.5 x 4 mg) PO QDAY #180 tab s 03/04/24 06/10/24 Rx hydroxyzine pamoate 25 mg capsule 25 mg PO QHS PRN itching #60 caps 03/04/24 06/10/24 Rx amlodipine 10 mg tablet 10 mg PO DAILY #90 TABLETS 5 06/10/24 Rx atorvastatin 80 mg tablet 80 mg PO QHS cholesterol lowering 06/10/24 06/10/24 Rx #90 tabs flash glucose scanning reader #1 ea 06/10/24 06/10/24 Rx (FreeStyle Ryley 2 Schuyler) flash glucose sensor (FreeStyle #1 ea 06/10/24 06/10/24 Rx Ryley 2 Sensor kit) gabapentin 100 mg capsule 100 mg PO BID nerve pain #180 caps 06/10/24 06/10/24 Rx insulin glargine 100 unit/mL (3 18 unit (0.18 mL) subcut DAILY 3 0 06/10/24 06/10/24 Rx mL) subcutaneous pen months #16.2 mL memantine 5 mg tablet 5 mg PO DAILY #90 tabs 06/10/24 Rx Have you fallen in the past year?: No PFSH Medical History Dementia Change in skin mole Cellulitis Memory impairment Toe pain Scabies Right wrist pain Fracture of right distal radius Pancreas neoplasm Urticaria Anxiety and depression Abnormal EKG Dermatitis Numbness of left foot Preoperative evaluation to rule out surgical contraindication Flu vaccine need CKD (chronic kidney disease), stage III Vision problems Heart disease Hearing loss Arthritis Essential hypertension Mixed hyperlipidemia Peripheral arterial occlusive disease Long-term use of high-risk medication History of pulmonary embolism Ankle fracture Chronic back pain Depression Atherosclerotic heart disease of [place] coronary artery without angina pectoris Orthostatic hypotension Syncope and collapse Severe sepsis with acute organ dysfunction Diverticulitis large intestine Hyperkalemia Acute renal failure Altered mental status Type II diabetes mellitus Surgical History History of right shoulder replacement History of shoulder replacement history of back fusion Postsurgical percutaneous transluminal coronary angioplasty (PTCA) status Presence of stent in coronary artery ( 12/07/15) Status post placement of implantable loop recorder History of laminectomy History of hernia repair History of cholecystectomy History of appendectomy Family History Father FH: congestive heart failure Colon cancer Diabetes Myocardial infarction Mother FH: aneurysm Arthritis rheumatoid Brother CVA (cerebral vascular accident) Diabetes Brother Cancer, Onset Age: 52 unknown diagnosis, possibly lung (smoker) History of partial colectomy Sister Diabetes High cholesterol Social History household members: spouse housing: house Smoking Status: Former smoker how long (more content not included)... Normal [facility] - Hematology and Cell countsOrdered By: Svetlana Casas on 06-10-2024 HbA1c (Bld) [Mass fraction] 8.1 % High 4.2-6.3 [facility] CREATININE FINGERSTICKon Creatinine [Mass/Vol] 1.4 mg/dL High 0.70-1.30 [facility] Comment on above: Performed By: #### L 400.0001, L500.4050, L506.0400, L501.9910, L501.9520 #### [facility] [address], [place], [id number] GFR/1.73 sq M.predicted among non-blacks MDRD (S/P/Bld) [Vol rate/Area] 50.0000 mL/min/{1.73_m2} Low >60 [facility] Comment on above: Performed By: #### L 400.0001, L500.4050, L506.0400, L501.9910, L501.9520 #### [facility] [address], [place], [id number] Creatinine measurement at dsideon 06-04-2024 Creatinine [Mass/Vol] 1.4 mg/dL High 0.70-1.30 [facility] EGFRon 06-04-2024 GFR/1.73 sq M.predicted among non-blacks MDRD (S/P/Bld) [Vol rate/Area] 50.0000 mL/min/{1.73_m2} Low >60 [facility] MRI Abd WITH and W/O Contras ton 06-04-2024 MRI Abd WITH and W/O Contrast [facility] Services [address] [place], [place] [id number] MRI Abd WITH and W/O Contrast MR#: [id number] Acct: [id number] Name: SANCHEZ NEWMAN Rep #: [id number] : 1945 M 78 From: Francisco Franklin DO PCP: Dr. Svetlana Casas MD Status: REG CLI Study: MRI Abd WITH and W/O Contrast Date of Exam: Exam# [id number] Ordering Dr: GAY SANDERSON PROCEDURE: MRI ABD WITH AND W/O CONTRAST REASON FOR EXAM: Neuroendocrine carcinoma. TECHNIQUE: Multiplanar, multisequence MRI of the upper abdomen without and with intravenous gadolinium-based contrast. CONTRAST: Clariscan 15 cc intravenous COMPARISON: MRI abdomen April 2022 FINDINGS: Liver: Normal hepatic signal. No hepatic mass. Normal enhancement. Biliary: Biliary dilatation, common hepatic duct diameter is 14 mm, unchanged from April 2022. This is likely physiologic dilatation in the setting of prior cholecystectomy. No choledocholithiasis. Pancreas: T2 hypointense mildly enhancing pancreatic tail mass measuring 16 x 13 mm, unchanged from April 2022. Background of pancreatic parenchymal atrophy is noted. Approximately a dozen scattered cystic lesions throughout the entire pancreas, largest at the distal body measuring 15 x 9 mm. This particular cyst measured 11 x 5 mm on April 2022 reference. Some of the other cysts have increased by few mm and others are stable. 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 There are no high-risk stigmata of any of these lesions. Main pancreatic duct is normal. Spleen: Normal size, signal intensities and contrast enhancement. Adrenals: Normal. Kidneys: A few scattered renal cysts measuring up to 15 mm on the left. No solid renal mass or hydronephrosis.. Peritoneum / Retroperitoneum: No ascites. Lymph Nodes: No upper abdominal lymphadenopathy. Major Vessels: Normal caliber of the abdominal aorta and IVC. Bones: Posterior fusion hardware of the upper lumbar spine. No marrow lesions. MRI/MRI Abd WITH and W/O Contrast IMPRESSION: 1. Small 1.6 cm pancreatic tail lesion with mild enhancement, unchanged from April 2022 suggesting a benign indolent neuroendocrine tumor. 2. 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 Some of these have increased by few mm from April 2022 and others are stable. No high-risk stigmata to suggest malignant transformation. Another follow-up MRCP recommended in 6-12 months. No main ductal dilatation. Reading Location: [facility] CC: Dr. Svetlana Casas MD; GAY SANDERSON Field Service Poultry Technician: Signed Normal [facility] Pelvis W/WO Contraston 06-04 Pelvis W/WO Contrast [facility] Imaging Services [address] [place] [address] Pelvis W/WO Contrast MR#: [id number] Acct: [id number] Name: SANCHEZ NEWMAN Rep #: [id number] : 1945 M 78 From: Jacob Levy i DO PCP: Dr. Svetlana Casas MD Status: REG CLI Study: Pelvis W/WO Contrast Date of Exam: 06/04/24 Exam# [id number] Ordering Dr: GAY SANDERSON PROCEDURE: MRI of the pelvis without and with intravenous contrast. REASON FOR EXAM: Surveillance for neuroendocrine pancreatic tumor. TECHNIQUE: Multiplanar, multisequence MRI images of the pelvis were obtained without and with intravenous contrast. 15 cc Clariscan gadolinium IV contrast was administered. COMPARISON: None available. FINDINGS: Mild degenerative changes in the lumbar spine. There is magnetic susceptibility artifact from surgical hardware in the lumbar spine at L2 and L3. No abnormal marrow replacing lesion of the lower lumbar spine, pelvis, or proximal femurs. Mild degenerative change right hip joint, to a moderate degree on the left. There is some mild increased T2 signal and enhancement involving the origin of the left hamstring complex, suggesting mild strain or injury. No sizable greater trochanteric bursal fluid collection. The distal attachments of the gluteus medius/minimus tendons, as well as the iliopsoas tendons, appear intact. The included lower abdominal wall is unremarkable. Included bowel segments grossly unremarkable. The prostate is mildly enlarged measuring 5.5 cm transverse. No focal abnormality of the urinary bladder. No pelvic mass or adenopathy. Included bowel segments show no specific finding. Scattered colonic diverticula of the sigmoid colon. MRI/Pelvis W/WO Contrast IMPRESSION: No findings of malignancy or metastatic disease in the pelvis. Some heterogeneous increased T2 signal and enhancement of the origin of the left hamstring complex, suggesting mild strain or injury. Sigmoid diverticulosis. Mildly enlarged prostate gland. Suggest correlation with PSA values. Central defect of the prostate gland may be due to prior TURP procedure. Reading Location: [facility] CC: Dr. Svetlana Casas MD; GAY SANDERSON Field Service Poultry Technician: Signed Normal [facility] Urine Cultureon 05-19-2024 URC Culture exhibits no growth. Normal [facility] Comment on above: Performed By: #### L 400.0001, L500.4050, L506.0400, L501.9910, L501.9520 #### [facility] [address] [place], [address] Protein+Creatinine Ratio,Uri neon 05-18-2024 PROT:CRE RATIO 1420 mg/g CRE High 0-200 [facility] Comment on above: Performed By: #### L 400.0001, L500.4050, L506.0400, L501.9910, L501.9520 #### [facility] [address] [place], [address] UR CREAT 63.50 mg/dL Normal NO RANGE EST. [facility] Comment on above: Performed By: #### L 400.0001, L500.4050, L506.0400, L501.9910, L501.9520 #### [facility] [address] [place], [address] Protein/Creatinine (U) [Mass ratio]Ordered By: Nina Marrero on 05-18-2024 Urine Protein/Creatinine Ratio 1420 mg/g CRE High 0-200 [facility] Random urine protein measure mentOrdered By: Nina Marrero on 05-18-2024 Protein (U) [Mass/Vol] 90.2 mg/dL High <11.9 [facility] Comment on above: Performed By: #### L 400.0001, L500.4050, L506.0400, L501.9910, L501.9520 #### [facility] [address] [place], [address] Urine creatinine measurement (mass/volume)Ordered By: Nina Marrero on 05-18-2024 Creatinine (U) [Mass/Vol] 63.50 mg/dL NO RANGE EST. [facility] Urine cultureOrdered By: Akash Marrero on 05-18-2024 Bacteria identified Cx Nom (U) Culture exhibits no growth. [facility] Basic Metabolic Profile (BMP )on 05-16-2024 BUN/CRE 13.3 RATIO Normal - [facility] Comment on above: Performed By: #### L 500.2500, L501.0900 #### [facility] [address] [place], [address] CA,Total 8.9 mg/dL Normal 8.5-10.1 [facility] Comment on above: Performed By: #### L 500.2500, L501.0900 #### [facility] [address] [place], [address] EST GFR - AA 43 mL/min Low >60 [facility] Comment on above: Result Comment: Afri can Polish GFR Calc Performed By: #### L 500.2500, L501.0900 #### [facility] [address] [place], [address] GAP 7 Normal 5-15 [facility] Comment on above: Performed By: #### L 500.2500, L501.0900 #### [facility] [address] [place], [address] GFR/1.73 sq M.predicted among non-blacks MDRD (S/P/Bld) [Vol rate/Area] 36 mL/min/{1.73_m2} Low >60 [facility] Comment on above: Result Comment: Non- GFR Calc Performed By: #### L 500.2500, L501.0900 #### [facility] [address] [place], [address] Blood urea nitrogen (BUN)/cr eatinine ratioOrdered By: Nina Marrero on 05-16-2024 Urea nitrogen/Creatinine [Mass ratio] 13.3 mg/mg - [facility] Carbon dioxide measurementOr dered By: Nina Marrero on 05-16-2024 CO2 [Moles/Vol] 24.0 mmol/L Normal 21.0-32.0 [facility] Comment on above: Performed By: #### L 500.2500, L501.0900 #### [facility] [address] [place], [address] Chloride measurementOrdered By: Nina Marrero on 05-16-2024 Chloride [Moles/Vol] 106 mmol/L Normal 98-107 [facility] Comment on above: Performed By: #### L 500.2500, L501.0900 #### [facility] [address] [place], [address] Estimated glomerular filtrat ion rate (GFR) AmericanOrdered By: Nina Marrero on 05-16-2024 Estimated GFR (MDRD) Amer 43 mL/min Low >60 [facility] Comment on above: GFR Calc Glomerular filtration rate ( GFR) estimationOrdered By: Nina Marrero on 05-16-2024 Estimated GFR (MDRD) Non-Af Amer 36 mL/min Low >60 [facility] Comment on above: Non- GFR Calc Glucose measurementOrdered B y: Nina Marrero on 05-16-2024 Glucose [Mass/Vol] 267 mg/dL High 74-106 [facility] Comment on above: Glucose result great er than or equal to 200 mg/dLsuggests DIABETES MELLITUS per A.D.A. criteria. Result Comment: Gluc ose result greater than or equal to 200 mg/dL suggests DIABETES MELLITUS per A.D.A. criteria. Performed By: #### L 500.2500, L501.0900 #### [facility] [address] [place], [address] Potassium measurementOrdered By: Nina Marrero on 05-16-2024 Potassium [Moles/Vol] 4.4 mmol/L Normal 3.5-5.1 [facility] Comment on above: Performed By: #### L 500.2500, L501.0900 #### [facility] [address] [place], [address] Protein+Creatinine Ratio,Uri neon 05-16-2024 PROT:CRE RATIO Normal 0-200 [facility] Comment on above: Result Comment: PT U NABLE TO OBTAIN Performed By: #### L 500.2500, L501.0900 #### [facility] [address] [place], [address] PROTEIN,UR.RAN. Normal <11.9 [facility] Comment on above: Result Comment: PT U NABLE TO OBTAIN Performed By: #### L 500.2500, L501.0900 #### [facility] [address] [place], [address] UR CREAT Normal NO RANGE EST. [facility] Comment on above: Result Comment: PT U NABLE TO OBTAIN Performed By: #### L 500.2500, L501.0900 #### [facility] [address] [place], [address] Serum anion gap measurementO rdered By: Nina Marrero on 05-16-2024 Anion gap [Moles/Vol] 7 mmol/L 5-15 [facility] Serum or plasma calcium candice urement (mass/volume)Ordered By: Nina Marrero on 05-16-2024 Calcium [Mass/Vol] 8.9 mg/dL 8.5-10.1 [facility] Serum or plasma creatinine m easurement (mass/volume)Ordered By: Nina Marrero on 05-16-2024 Creatinine [Mass/Vol] 1.95 mg/dL High 0.70-1.30 [facility] Comment on above: The validity of the calculated GFR & GFRAA in patients over 70 years has not been determined. Clinical correlation is essential. Result Comment: The validity of the calculated GFR GFRAA in patients over 70 years has not been determined. Clinical correlation is essential. Performed By: #### L 500.2500, L501.0900 #### [facility] [address] [place], [address] Serum or plasma urea nitroge n measurement (mass/volume)Ordered By: Nina Marrero on 05-16-2024 Urea nitrogen [Mass/Vol] 26 mg/dL High 11-13 [facility] Comment on above: Performed By: #### L 500.2500, L501.0900 #### [facility] [address] [place], [address] Sodium levelOrdered By: Oracio Marrero on 05-16-2024 Sodium [Moles/Vol] 138 mmol/L Normal 136-145 [facility] Comment on above: Performed By: #### L 500.2500, L501.0900 #### [facility] [address] [place], [address] Urine Cultureon 03-15-2024 URC Below infection leve l. Mixed Gram Positive Organisms Centuria Count <1000 MIXC Mixed contaminants. Submit a new specimen if indicated. Normal [facility] Comment on above: Performed By: #### L 400.0001, L500.4050, L506.0400, L501.9910, L501.9520 #### [facility] [address] [place], [address] Microalb:Creat Ratio,Random URon 03-13-2024 Creatinine [Mass/Vol] 126.00 mg/dL Normal NO RAN GE EST. [facility] Comment on above: Performed By: #### L 400.0001, L500.4050, L506.0400, L501.9910, L501.9520 #### [facility] [address] [place], [address] MALB:CRE 424.6 mg/g CRE High <30 mg/g CRE [facility] Comment on above: Performed By: #### L 400.0001, L500.4050, L506.0400, L501.9910, L501.9520 #### [facility] [address] [place], [address] MICROALBUMIN,UR 535.0 mg/L Normal NO RANGE EST. [facility] Comment on above: Performed By: #### L 400.0001, L500.4050, L506.0400, L501.9910, L501.9520 #### [facility] [address] [place], [address] Random urine microalbumin me asurementOrdered By: Nina Marrero on 03-13-2024 Urine Random Microalbumin 535.0 mg/L NO RANGE EST. [facility] Urine albumin/creatinine rat io for detection of microalbuminuriaOrdered By: Nina Marrero on 03-13-2024 Urine Microalbumin/Creatinine Ratio 424.6 mg/g CRE High <30 [facility] Urine creatinine measurement (mass/volume)Ordered By: Nina Marrero on 03-13-2024 Creatinine (U) [Mass/Vol] 126.00 mg/dL NO RANGE EST. [facility] Urine cultureOrdered By: Akash Marrero on 03-13-2024 Bacteria identified Cx Nom (U) Positive Abnormal [facility] Microalb:Creat Ratio,Random URon 03-06-2024 MALB:CRE Normal <30 mg/g CRE [facility] Comment on above: Order Comment: DR. Lauren MCKENNA ORDERED LORI BEDOYA ORDERED CULTURE Result Comment: KOURTNEY ENT WAS UNABLE TO OBTAIN SPECIMEN Performed By: #### L 400.0001, L500.4050, L506.0400, L501.9910, L501.9520 #### [facility] [address] [place], [address] MICROALBUMIN,UR Normal NO RANGE EST. [facility] Comment on above: Order Comment: DR. Lauren MCKENNA ORDERED LORI BEDOYA ORDERED CULTURE Result Comment: KOURTNEY ENT WAS UNABLE TO OBTAIN SPECIMEN Performed By: #### L 400.0001, L500.4050, L506.0400, L501.9910, L501.9520 #### [facility] [address] [place], [address] UR CREAT Normal NO RANGE EST. [facility] Comment on above: Order Comment: DR. Lauren MCKENNA ORDERED MIACREDR, LORI ORDERED CULTURE Result Comment: KOURTNEY ENT WAS UNABLE TO OBTAIN SPECIMEN Performed By: #### L 400.0001, L500.4050, L506.0400, L501.9910, L501.9520 #### [facility] [address] [place], [address] Comprehensive Metabolic Prof ilon 03-04-2024 Albumin [Mass/Vol] 4.2 g/dL Normal 3.2-5.0 [facility] Comment on above: Performed By: #### L 400.0001, L500.4050, L506.0400, L501.9910, L501.9520 #### [facility] [address] [place], [address] Albumin/Globulin [Mass ratio] 1.3 {ratio} Normal 0.9-2.4 [facility] Comment on above: Performed By: #### L 400.0001, L500.4050, L506.0400, L501.9910, L501.9520 #### [facility] [address] [place], [address] ALK P 105 U/L Normal 45-117 [facility] Comment on above: Performed By: #### L 400.0001, L500.4050, L506.0400, L501.9910, L501.9520 #### [facility] [address] [place], [address] ALT [Catalytic activity/Vol] 40 U/L Normal 16-61 [facility] Comment on above: Performed By: #### L 400.0001, L500.4050, L506.0400, L501.9910, L501.9520 #### [facility] [address] [place], [address] AST [Catalytic activity/Vol] 33 U/L Normal 15-37 [facility] Comment on above: Performed By: #### L 400.0001, L500.4050, L506.0400, L501.9910, L501.9520 #### [facility] [address] [place], [address] Bilirubin [Mass/Vol] 0.40 mg/dL Normal 0.20-1.00 [facility] Comment on above: Result Comment: For patients on eltrombopag therapy, use of Dimension Luke TBIL is not recommended. Performed By: #### L 400.0001, L500.4050, L506.0400, L501.9910, L501.9520 #### [facility] [address] [place], [address] BUN/CRE 15.7 RATIO Normal 10-20 [facility] Comment on above: Performed By: #### L 400.0001, L500.4050, L506.0400, L501.9910, L501.9520 #### [facility] [address] [place], [address] CA,Total 9.9 mg/dL Normal 8.5-10.1 [facility] Comment on above: Performed By: #### L 400.0001, L500.4050, L506.0400, L501.9910, L501.9520 #### [facility] [address] [place], [address] Chloride [Moles/Vol] 108 mmol/L High 98-107 [facility] Comment on above: Performed By: #### L 400.0001, L500.4050, L506.0400, L501.9910, L501.9520 #### [facility] [address] [place], [address] CO2 [Moles/Vol] 25.0 mmol/L Normal 21.0-32.0 [facility] Comment on above: Performed By: #### L 400.0001, L500.4050, L506.0400, L501.9910, L501.9520 #### [facility] [address] [place], [address] Creatinine [Mass/Vol] 2.04 mg/dL High 0.70-1.30 [facility] Comment on above: Result Comment: The validity of the calculated GFR GFRAA in patients over 70 years has not been determined. Clinical correlation is essential. Performed By: #### L 400.0001, L500.4050, L506.0400, L501.9910, L501.9520 #### [facility] [address] [place], [address] EST GFR - AA 41 mL/min Low >60 [facility] Comment on above: Result Comment: Afri can Polish GFR Calc Performed By: #### L 400.0001, L500.4050, L506.0400, L501.9910, L501.9520 #### [facility] [address] [place], [address] GAP 6 Normal 5-15 [facility] Comment on above: Performed By: #### L 400.0001, L500.4050, L506.0400, L501.9910, L501.9520 #### [facility] [address] [place], [address] GFR/1.73 sq M.predicted among non-blacks MDRD (S/P/Bld) [Vol rate/Area] 34 mL/min/{1.73_m2} Low >60 [facility] Comment on above: Result Comment: Non- GFR Calc Performed By: #### L 400.0001, L500.4050, L506.0400, L501.9910, L501.9520 #### [facility] [address] [place], [address] Globulin (S) [Mass/Vol] 3.3 g/dL Normal 2.2-4.2 [facility] Comment on above: Performed By: #### L 400.0001, L500.4050, L506.0400, L501.9910, L501.9520 #### [facility] [address] [place], [address] Glucose [Mass/Vol] 127 mg/dL High 74-106 [facility] Comment on above: Result Comment: Fast ing Glucose result greater than or equal to 126 mg/dL suggests DIABETES MELLITUS per A.D.A. criteria. Performed By: #### L 400.0001, L500.4050, L506.0400, L501.9910, L501.9520 #### [facility] [address] [place], [address] Potassium [Moles/Vol] 5.1 mmol/L Normal 3.5-5.1 [facility] Comment on above: Performed By: #### L 400.0001, L500.4050, L506.0400, L501.9910, L501.9520 #### [facility] [address] [place], [address] Sodium [Moles/Vol] 140 mmol/L Normal 136-145 [facility] Comment on above: Performed By: #### L 400.0001, L500.4050, L506.0400, L501.9910, L501.9520 #### [facility] [address] [place], [address] T PROT 7.5 g/dL Normal 6.4-8.2 [facility] Comment on above: Performed By: #### L 400.0001, L500.4050, L506.0400, L501.9910, L501.9520 #### [facility] [address] [place], [address] Urea nitrogen [Mass/Vol] 32 mg/dL High 7-18 [facility] Comment on above: Performed By: #### L 400.0001, L500.4050, L506.0400, L501.9910, L501.9520 #### [facility] [address] [place], [address] Internal Medicine Office Vis iton 03-04-2024 Internal Medicine Office Visit [facility] [address] [place] [address] OFFICE VISIT Date of Service: 03/04/24 MR#: [id number] Acct: [id number] Name: SANCHEZ NEWMAN Rep #: [id number] : 1945 Provider: Dr. Svetlana capellan MD Age/Sex: 78/M Location: [facility] Status: Signed Intake Vital Signs 11/27/23 15:06 03/04/24 15:31 Height 5 ft 11 in 5 ft 11 in Weight: 164 lb 8 oz BMI 22.9 BP 118/72 Blood Pressure Location Lt brachial Position Sitting Respiration 16 Pulse 75 Pulse Source Monitor Temp 97.2 F L Temp Source Temporal Pulse Oximetry (%) 98 Oxygen Delivery Method room air Intake Visit Reasons: 3 M FU Chief Complaint: 3m f/u Timekeeping Supervisor Required: No Accompanied by: Is patient in pain?: No Allergies iodine Allergy (Unknown, Verified 03/04/24 15:22) convulsions codeine Allergy (Verified 03/04/24 15:22) Itching Medications ???Medication ???Instructions ???Recorded ???Confirmed ???Type lancets #100 ea 08/14/21 03/04/24 Rx aspirin 81 mg capsule 81 mg PO DAILY 30 days #30 caps 03/25/22 03/04/24 Rx blood sugar diagnostic (Contour 03/25/22 03/04/24 History Next Test Strips) docusate sodium 50 mg capsule 50 mg PO DAILY 04/09/22 03/04/24 History duloxetine 60 mg capsule,delayed 60 mg PO DAILY mental health 04/09/22 03/04/24 History release tizanidine 4 mg capsule 4 mg PO QHS PRN 04/09/22 03/04/24 History trazodone 100 mg tablet 50 mg PO QHS 05/02/22 03/04/24 History permethrin 5 % topical cream 1 applic topical Q14D 2 doses #60 10/19/22 03/04/24 Rx grams atorvastatin 80 mg tablet 80 mg PO QHS cholesterol lowering 05/22/23 03/04/24 Rx #90 tabs metformin 500 mg tablet 500 mg PO BID 07/01/23 03/04/24 History tramadol 50 mg tablet 50 mg PO DAILY PRN pain #3 tabs 07/01/23 03/04/24 Rx gabapentin 100 mg capsule 100 mg PO BID nerve pain #180 caps 07/05/23 03/04/24 Rx C- PAIN CRM 1 bottle topical 3XD PRN pain 3 08/21/23 03/04/24 Rx months #1 BOTTLE insulin glargine 100 unit/mL (3 18 unit subcut DAILY PRN 11/27/23 03/04/24 History mL) subcutaneous pen amlodipine 10 mg tablet 10 mg PO DAILY #90 TABLETS 12/11/23 03/04/24 Rx memantine 5 mg tablet 5 mg PO DAILY #90 tabs 01/01/24 03/04/24 Rx blood sugar diagnostic (Contour #100 ea 01/09/24 03/04/24 Rx Next Test Strips) omeprazole 20 mg capsule,delayed 20 mg PO DAILY acid reflux #90 caps 01/29/24 03/04/24 Rx release glimepiride 4 mg tablet 6 mg (1.5 x 4 mg) PO QDAY #180 tabs 03/04/24 03/04/24 Rx hydroxyzine pamoate 25 mg capsule 25 mg PO QHS PRN itching #60 caps 03/04/24 03/04/24 Rx Have you fallen in the past year?: No PFSH Medical History Dementia Change in skin mole Cellulitis Memory impairment Toe pain Scabies Right wrist pain Fracture of right distal radius Pancreas neoplasm Urticaria Anxiety and depression Abnormal EKG Dermatitis Numbness of left foot Preoperative evaluation to rule out surgical contraindication Flu vaccine need CKD (chronic kidney disease), stage III Vision problems Heart disease Hearing loss Arthritis Essential hypertension Mixed hyperlipidemia Peripheral arterial occlusive disease Long-term use of high-risk medication History of pulmonary embolism Ankle fracture Chronic back pain Depression Atherosclerotic heart disease of [place] coronary artery without angina pectoris Orthostatic hypotension Syncope and collapse Severe sepsis with acute organ dysfunction Diverticulitis large intestine Hyperkalemia Acute renal failure Altered mental status Type II diabetes mellitus Surgical History History of right shoulder replacement History of shoulder replacement history of back fusion Postsurgical percutaneous transluminal coronary angioplasty (PTCA) status Presence of stent in coronary artery ( 12/07/15) Status post placement of implantable loop recorder History of laminectomy History of hernia repair History of cholecystectomy History of appendectomy Family History Father FH: congestive heart failure Colon cancer Diabetes Myocardial infarction Mother FH: aneurysm Arthritis rheumatoid Brother CVA (cerebral vascular accident) Diabetes Brother Cancer, Onset Age: 52 unknown diagnosis, possibly lung (smoker) History of partial colectomy Sister Diabetes High cholesterol Social History household members: spouse housing: house Smoking Status: Former smoker how long ago did patient quit smokin alcohol intake: never substance use type: does not use diet: diabetic caffeine: Yes Type: coffee what type of physical activity do yo (more content not included)... Normal [facility] Miscellaneous Lab Procedure 02-21-2024 [facility] [place] 3 Normal [facility] Comment on above: Order Comment: [id number] Acetaminophen Result Comment: TEST RESULTS LIMITS Acetaminophen, Scr w/Conf, Ur ACETAMINOPHEN IA Further testing indicated ug/mL CUTOFF:5.0 Acetaminophen, MS, Ur RFX ANALGESICS/NSAIDS +POSITIVE+ Acetaminophen PRESENT TESTING PERFORMED AT [facility]. ORIGINAL REPORT ON FILE IN LAB CONTAINS ADDITIONAL TEST SITE INFORMATION. Performed By: #### L 400.0001, L500.4050, L506.0400, L501.9910, L501.9520 #### [facility] [address] [place], [place], [address] Miscellaneous Lab Procedureo n 02-18-2024 [facility] [place] Normal [facility] Comment on above: Order Comment: [id number] ACETAMINOPHEN/CODEINE UR RT Result Comment: [id number] 6+OXYCODONE-BUND (ng/mL) DRUG RESULT SCREEN CUTOFF ____ Amphetamines,Urine Negative ng/mL 1000 Amphetamine test includes Amphetamine and Methamphetamine. Barbiturates Negative ng/mL 200 Benzodiazepines Negative ng/mL 200 Cannabinoid Negative ng/mL 20 Cocaine (Metab) Negative ng/mL 300 Opiates Positive ng/mL 300 Opiates test includes Codeine, Morphine, Hydromorphone, Hydrocodone. Please Note: Confirmation performed by Mass Spectrometry Codeine Positive Codeine Conf, MS, UR >3000 ng/mL 300 Morphine Positive Morphine Conf, MS, UR 756 ng/mL 300 Hydromorphone Negative 300 Hydrocodone Negative 300 Oxycodone/Oxymorphone,Urine Negative ng/mL 300 Test includes Oxycodone and Oxymorphone. TESTING PERFORMED AT [facility]. ORIGINAL REPORT ON FILE IN LAB CONTAINS ADDITIONAL TEST SITE INFORMATION. Performed By: #### L 400.0001, L500.4050, L506.0400, L501.9910, L501.9520 #### [facility] [address] [place], [address] Urine Drug Screen (VISTA)on 02-11-2024 AMPHETAMINES Negative Normal <1000 ng/mL [facility] Comment on above: Order Comment: UNK Performed By: #### L 400.0001, L500.4050, L506.0400, L501.9910, L501.9520 #### [facility] [address] [place], [address] BARBITIURATES Negative Normal < 200 ng/mL [facility] Comment on above: Order Comment: UNK Performed By: #### L 400.0001, L500.4050, L506.0400, L501.9910, L501.9520 #### [facility] [address] [place], [place], [facility] BENZODIAZIPINE Negative Normal < 200 ng/mL [facility] Comment on above: Order Comment: UNK Performed By: #### L 400.0001, L500.4050, L506.0400, L501.9910, L501.9520 #### [facility] [address] [place], [place], [facility] COCAINE Negative Normal < 300 ng/mL [facility] Comment on above: Order Comment: UNK Performed By: #### L 400.0001, L500.4050, L506.0400, L501.9910, L501.9520 #### [facility] [address] [place], [place], [facility] ECSTACY Positive Abnormal < 500 ng/mL [facility] Comment on above: Order Comment: UNK Performed By: #### L 400.0001, L500.4050, L506.0400, L501.9910, L501.9520 #### [facility] [address] [place], [address] METHADONE Negative Normal < 300 ng/mL [facility] Comment on above: Order Comment: UNK Performed By: #### L 400.0001, L500.4050, L506.0400, L501.9910, L501.9520 #### [facility] [address] [place], [address] OPIATES Positive Abnormal < 300 ng/mL [facility] Comment on above: Order Comment: UNK Performed By: #### L 400.0001, L500.4050, L506.0400, L501.9910, L501.9520 #### [facility] [address] [place], [address] PCP Negative Normal < 25 ng/mL [facility] Comment on above: Order Comment: UNK Performed By: #### L 400.0001, L500.4050, L506.0400, L501.9910, L501.9520 #### [facility] [address] [place], [address] THC Negative Normal < 50 ng/mL [facility] Comment on above: Order Comment: UNK Performed By: #### L 400.0001, L500.4050, L506.0400, L501.9910, L501.9520 #### [facility] [address] [place], [address] VISTA UDS PH 5 Normal [facility] Comment on above: Order Comment: UNK Performed By: #### L 400.0001, L500.4050, L506.0400, L501.9910, L501.9520 #### [facility] [address] [place], [address] Absolute lymphocyte countOrd ered By: Svetlana Casas on 08-21-2023 Lymphocytes Auto (Unsp spec) [#/Vol] 1.89 10*3/uL 0.83-4.51 [facility] Automated lymphocyte count a s percentage of total leukocytesOrdered By: Svetlana Casas on 08-21-2023 Lymphocytes/100 WBC Auto (Unsp spec) 31.6 % 19-41 [facility] Basophil percentageOrdered B y: Svetlana Casas on 08-21-2023 Basophils/100 WBC (Bld) 1.0 % 0-1 [facility] Bilirubin [Mass/Vol] 0.30 mg/dL 0.20-1.00 [facility] Comment on above: For patients on eltr ombopag therapy, use of Dimension Luke TBIL is not recommended. Chloride [Moles/Vol] 110 mmol/L 98-107 [facility] Eosinophils/100 WBC (Bld) 1.3 % 0-5 [facility] Glucose [Mass/Vol] 179 mg/dL 74-106 [facility] Comment on above: Fasting Glucose resu lt greater than or equal to 126 mg/dL suggests DIABETES MELLITUS per A.D.A. criteria. Hemoglobin (Bld) [Mass/Vol] 12.1 g/dL 13.0-16.5 [facility] Monocytes/100 WBC (Bld) 7.3 % 0-10 [facility] Neutrophils (Bld) [#/Vol] 3.5 10*3/uL 2.0-7.7 [facility] Neutrophils/100 WBC (Bld) 58.5 % 47-70 [facility] Potassium [Moles/Vol] 4.7 mmol/L 3.5-5.1 [facility] Protein [Mass/Vol] 7.3 g/dL 6.4-8.2 [facility] Sodium [Moles/Vol] 139 mmol/L 136-145 [facility] WBC (Bld) [#/Vol] 6.0 10*3/uL 4.4-11.0 [facility] Determination of erythrocyte mean corpuscular volume (MCV)Ordered By: Svetlana Casas on 08-21-2023 MCV (RBC) [Entitic vol] 90.6 fL 80-94 [facility] Erythrocyte distribution wid th ratioOrdered By: Svetlana Casas on 08-21-2023 Erythrocyte distribution width (RBC) [Ratio] 14.7 % 11.6-14.6 [facility] Erythrocyte distribution wid th standard deviationOrdered By: Svetlana Casas on 08-21-2023 Erythrocyte distribution width (RBC) [Entitic vol] 49.3 fL 35.1-43.9 [facility] Hematocrit Auto (Bld) [Volum e fraction]Ordered By: Svetlana Casas on 08-21-2023 Hematocrit (Bld) [Volume fraction] 39.4 % 40-54 [facility] Immature granulocytes/100 WB C Auto (Bld)Ordered By: Svetlana Casas on 08-21-2023 Immature granulocytes/100 WBC (Bld) 0.300 % 0.0-0.9 [facility] Comment on above: IG% - Immature Granu locytes (promyelocytes, myelocytes and metamyelocytes) > 1% indicates that a LEFT SHIFT is Present. Laboratory - Chemistry and C hemistry - challengeOrdered By: Svetlana Casas on 08-21-2023 Albumin/Globulin [Mass ratio] 1.1 {ratio} 0.9-2.4 [facility] ALP [Catalytic activity/Vol] 108 U/L 45-117 [facility] ALT [Catalytic activity/Vol] 39 U/L 16-61 [facility] CO2 [Moles/Vol] 24.0 mmol/L 21.0-32.0 [facility] Globulin (S) [Mass/Vol] 3.5 g/dL 2.2-4.2 [facility] Urea nitrogen/Creatinine [Mass ratio] 10.3 mg/mg 10-20 [facility] - Hematology and Cell countsOrdered By: Svetlana Casas on 08-21-2023 MCH (RBC) [Entitic mass] 27.8 pg 27.0-32.0 [facility] MCHC (RBC) [Mass/Vol] 30.7 g/dL 32-36 [facility] Nucleated RBC/100 WBC (Bld) [Ratio] 0 % 0-5 [facility] Platelet mean volume (Bld) [Entitic vol] 10.2 fL 6.2-12.0 [facility] Platelets (Bld) [#/Vol] 235 10*3/uL 150-450 [facility] - Hematology and Cell countson 08-21-2023 HbA1c (Bld) [Mass fraction] 7.8 % 4.2-6.3 [facility] No Panel InformationOrdered By: Svetlana Casas on 08-21-2023 Urine Microalbumin/Creatinine Ratio 652.5 mg/g CRE <30 [facility] Estimated GFR (MDRD) Amer 46 mL/min >60 [facility] Comment on above: GFR Calc Estimated GFR (MDRD) Non-Af Amer 38 mL/min >60 [facility] Comment on above: Non- GFR Calc RBC Auto (Bld) [#/Vol]Ordere d By: Svetlana Casas on 08-21-2023 RBC (Bld) [#/Vol] 4.35 10*6/uL 4.6-6.2 [facility] Serum or plasma calcium candice urement (mass/volume)Ordered By: Svetlana Casas on 08-21-2023 Calcium [Mass/Vol] 9.3 mg/dL 8.5-10.1 [facility] Serum or plasma creatinine m easurement (mass/volume)Ordered By: Svetlana Casas on 08-21-2023 Creatinine [Mass/Vol] 1.84 mg/dL 0.70-1.30 [facility] Comment on above: The validity of the calculated GFR & GFRAA in patients over 70 years has not been determined. Clinical correlation is essential. Serum or plasma thyroid stim ulating hormone (TSH) measurement (units/volume)Ordered By: Svetlana Casas on 08-21-2023 TSH Qn 4.36 uIU/mL 0.358-3.74 [facility] Serum or plasma urea nitroge n measurement (mass/volume)Ordered By: Svetlana Casas on 08-21-2023 Urea nitrogen [Mass/Vol] 19 mg/dL 7-18 [facility] Thin prep Papanicolaou smear with manual screeningOrdered By: Svetlana Casas on 08-21-2023 Thin prep Papanicolaou smear with manual screening 783.0 mg/L NO RANGE EST. [facility] Thin prep Papanicolaou smear with manual screening 3.8 g/dL 3.2-5.0 [facility] Thin prep Papanicolaou smear with manual screening 33 U/L 15-37 [facility] Thin prep Papanicolaou smear with manual screening 5 5-15 [facility] Thin prep Papanicolaou smear with manual screening 0.64 ng/dL 0.76-1.46 [facility] [facility] Urine creatinine measurement (mass/volume)Ordered By: Svetlana Yessenia on 08-21-2023 Creatinine (U) [Mass/Vol] 120.00 mg/dL NO RANGE EST. [facility] Absolute lymphocyte countOrd ered By: [facility] Wilsonjosejeb on 05-22-2023 Lymphocytes Auto (Unsp spec) [#/Vol] 1.94 10*3/uL 0.83-4.51 [facility] Automated lymphocyte count a s percentage of total leukocytesOrdered By: dignapelicanharper Casas on 05-22-2023 Lymphocytes/100 WBC Auto (Unsp spec) 24.5 % 19-41 [facility] Basophil percentageOrdered B y: Tariqharper Casas on 05-22-2023 Basophils/100 WBC (Bld) 0.9 % 0-1 [facility] Bilirubin [Mass/Vol] 0.30 mg/dL 0.20-1.00 [facility] Comment on above: For patients on eltr ombopag therapy, use of Dimension Luke TBIL is not recommended. Chloride [Moles/Vol] 108 mmol/L 98-107 [facility] Eosinophils/100 WBC (Bld) 1.9 % 0-5 [facility] Glucose [Mass/Vol] 307 mg/dL 74-106 [facility] Comment on above: Glucose result great er than or equal to 200 mg/dLsuggests DIABETES MELLITUS per A.D.A. criteria. Hemoglobin (Bld) [Mass/Vol] 11.7 g/dL 13.0-16.5 [facility] Monocytes/100 WBC (Bld) 7.9 % 0-10 [facility] Neutrophils (Bld) [#/Vol] 5.1 10*3/uL 2.0-7.7 [facility] Neutrophils/100 WBC (Bld) 64.2 % 47-70 [facility] Potassium [Moles/Vol] 4.3 mmol/L 3.5-5.1 [facility] Protein [Mass/Vol] 7.5 g/dL 6.4-8.2 [facility] Sodium [Moles/Vol] 135 mmol/L 136-145 [facility] WBC (Bld) [#/Vol] 7.9 10*3/uL 4.4-11.0 [facility] Determination of erythrocyte mean corpuscular volume (MCV)Ordered By: Svetlana Casas on 05-22-2023 MCV (RBC) [Entitic vol] 92.5 fL 80-94 [facility] Erythrocyte distribution wid th ratioOrdered By: Svetlana Casas on 05-22-2023 Erythrocyte distribution width (RBC) [Ratio] 13.6 % 11.6-14.6 [facility] Erythrocyte distribution wid th standard deviationOrdered By: Svetlana Casas on 05-22-2023 Erythrocyte distribution width (RBC) [Entitic vol] 46.0 fL 35.1-43.9 [facility] Hematocrit Auto (Bld) [Volum e fraction]Ordered By: Svetlana Casas on 05-22-2023 Hematocrit (Bld) [Volume fraction] 38.5 % 40-54 [facility] Immature granulocytes/100 WB C Auto (Bld)Ordered By: Svetlana Casas on 05-22-2023 Immature granulocytes/100 WBC (Bld) 0.600 % 0.0-0.9 [facility] Comment on above: IG% - Immature Granu locytes (promyelocytes, myelocytes and metamyelocytes) > 1% indicates that a LEFT SHIFT is Present. Laboratory - Chemistry and C hemistry - challengeOrdered By: Svetlana Casas on 05-22-2023 Albumin/Globulin [Mass ratio] 1.1 {ratio} 0.9-2.4 [facility] ALP [Catalytic activity/Vol] 115 U/L 45-117 [facility] ALT [Catalytic activity/Vol] 41 U/L 16-61 [facility] CO2 [Moles/Vol] 24.0 mmol/L 21.0-32.0 [facility] Globulin (S) [Mass/Vol] 3.5 g/dL 2.2-4.2 [facility] Urea nitrogen/Creatinine [Mass ratio] 15.8 mg/mg 10-20 [facility] Laboratory - Hematology and Cell countsOrdered By: Svetlana Casas on 05-22-2023 MCH (RBC) [Entitic mass] 28.1 pg 27.0-32.0 [facility] MCHC (RBC) [Mass/Vol] 30.4 g/dL 32-36 [facility] Nucleated RBC/100 WBC (Bld) [Ratio] 0 % 0-5 [facility] Platelets (Bld) [#/Vol] 268 10*3/uL 150-450 [facility] Laboratory - Hematology and Cell countson 05-22-2023 HbA1c (Bld) [Mass fraction] 7.9 % 4.2-6.3 [facility] No Panel InformationOrdered By: Svetlana Casas on 05-22-2023 Estimated GFR (MDRD) Amer 41 mL/min >60 [facility] Comment on above: GFR Calc Estimated GFR (MDRD) Non-Af Amer 34 mL/min >60 [facility] Comment on above: Non- GFR Calc Platelet mean volume Orville-Ec ker (Bld) [Entitic vol]Ordered By: Svetlana Casas on 05-22-2023 Platelet mean volume (Bld) [Entitic vol] 10.5 fL 6.2-12.0 [facility] RBC Auto (Bld) [#/Vol]Ordere d By: Svetlana Casas on 05-22-2023 RBC (Bld) [#/Vol] 4.16 10*6/uL 4.6-6.2 [facility] Serum or plasma calcium candice urement (mass/volume)Ordered By: Svetlana Casas on 05-22-2023 Calcium [Mass/Vol] 9.7 mg/dL 8.5-10.1 [facility] Serum or plasma creatinine m easurement (mass/volume)Ordered By: Svetlana Casas on 05-22-2023 Creatinine [Mass/Vol] 2.03 mg/dL 0.70-1.30 [facility] Comment on above: The validity of the calculated GFR & GFRAA in patients over 70 years has not been determined. Clinical correlation is essential. Serum or plasma thyroid stim ulating hormone (TSH) measurement (units/volume)Ordered By: Svetlana Casas on 05-22-2023 TSH Qn 7.51 uIU/mL 0.358-3.74 [facility] Serum or plasma urea nitroge n measurement (mass/volume)Ordered By: Svetlana Casas on 05-22-2023 Urea nitrogen [Mass/Vol] 32 mg/dL 7-18 [facility] Thin prep Papanicolaou smear with manual screeningOrdered By: Svetlana Casas on 05-22-2023 Thin prep Papanicolaou smear with manual screening 4.0 g/dL 3.2-5.0 [facility] Thin prep Papanicolaou smear with manual screening 31 U/L 15-37 [facility] Thin prep Papanicolaou smear with manual screening 3 5-15 [facility] Thin prep Papanicolaou smear with manual screening 0.70 ng/dL 0.76-1.46 [facility] MR Abdomen WO and W contrast Hedy 05-02-2023 IMPRESSION: 1. Stable enhancing nodule in the tail the pancreas consistent with history of pancreatic neuroendocrine tumor. 2. 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 No solid components or other concerning features. These are stable from prior exam. 3. Mild hepatic steatosis. OLOGY EXAM: MRI ABDOMEN WI TH AND WITHOUT CONTRAST, 05/02/2023 09:58 AM CLINICAL INDICATIONS: Pancreatic neuroendocrine tumor. Surveillance. D3A.8:Primary pancreatic neuroendocrine tumor Sex: Male, Age: 77 years COMPARISON: MRI of the abdomen, 10/25/2022 and PET/CT, 06/26/2022. TECHNIQUE: Multiplanar, multisequence MRI scanning was performed of the abdomen before and after the administration of intravenous contrast. Heavily T2-weighted axial and coronal MRCP images. Radially rotating MRCP images were also made. CONTRAST: Gadoterate Meglumine (DOTAREM) 5 MMOL/10ML injection 3-60 mL; Route of Administration: Intravenous; Dose: 15.3 mL. FINDINGS: Lower chest: The lung bases are grossly clear. The lower mediastinal structures are unremarkable. ABDOMEN: Liver: The liver is normal in size and morphology. There is mild signal loss on the opposed phased images consistent with hepatic steatosis. No focal lesions. Gallbladder and biliary tree: The gallbladder is not visualized consistent with history of cholecystectomy. There is extrahepatic bile duct dilatation measuring up to 11 mm. This tapers smoothly to the ampulla without evidence of filling defects or strictures. It is stable from the prior exam and likely represents postcholecystectomy ectasia. Spleen: Spleen is normal in size and signal characteristics. No focal lesions. Pancreas: Enhancing nodule within the pancreatic tail which measures 1.4 x 1.3 cm (series 31 image 55) and previously measured 1.4 x 1.2 cm. This corresponds to a avid nodule on PET/CT from June 18, 2022. Mild pancreatic atrophy. No dilation of the main pancreatic duct. Multiple T2 hyperintense cystic foci within the pancreatic parenchyma are similar in size and distribution compared to prior MRI. Pediatric Genetic Counselor cystic lesion measures 2.0 x 0.8 x 0. cm (series 17, image 28; series 12, image 45) previously 1.9 x 0.8 x 0.7 cm. Adrenals: Stable 1.1 cm lesion in the right adrenal gland with macroscopic fat consistent with myelolipoma. The adrenal glands are otherwise unremarkable. Kidneys: Kidneys are normal in size and signal. There is no hydronephrosis. Several subcentimeter simple appearing cyst in both kidneys. There is a cyst in the anterior left mid kidney measuring 1.8 cm with a thin septation and no enhancement consistent with a Bosniak 2 cyst (series 8, image 33). Retroperitoneal and Vasculature: No abdominal/retroperitonea l adenopathy is identified. Abdominal aorta and its visualized branches are patent. Mesenteric vasculature is patent. GI Tract: The stomach is filled with debris and fluid. No obvious focal lesions. Remainder of the bowel is unremarkable. Osseous Structures: Spinal fixation hardware is seen in the lower lumbar spine. No suspicious osseous lesions. RADIOLOGY Edy Eagle MD - 05/02/2023 EXAM: MRI ABDOMEN WITH AND WITHOUT CONTRAST, 05/02/2023 09:58 AM CLINICAL INDICATIONS: Pancreatic neuroendocrine tumor. Surveillance. D3A.8:Primary pancreatic neuroendocrine tumor Sex: Male, Age: 77 years COMPARISON: MRI of the abdomen, 10/25/2022 and PET/CT, 06/26/2022. TECHNIQUE: Multiplanar, multisequence MRI scanning was performed of the abdomen before and after the administration of intravenous contrast. Heavily T2-weighted axial and coronal MRCP images. Radially rotating MRCP images were also made. CONTRAST: Gadoterate Meglumine (DOTAREM) 5 MMOL/10ML injection 3-60 mL; Route of Administration: Intravenous; Dose: 15.3 mL. FINDINGS: Lower chest: The lung bases are grossly clear. The lower mediastinal structures are unremarkable. ABDOMEN: Liver: The liver is normal in size and morphology. There is mild signal loss on the opposed phased images consistent with hepatic steatosis. No focal lesions. Gallbladder and biliary tree: The gallbladder is not visualized consistent with history of cholecystectomy. There is extrahepatic bile duct dilatation measuring up to 11 mm. This tapers smoothly to the ampulla without evidence of filling defects or strictures. It is stable from the prior exam and likely represents postcholecystectomy ectasia. Spleen: Spleen is normal in size and signal characteristics. No focal lesions. Pancreas: Enhancing nodule within the pancreatic tail which measures 1.4 x 1.3 cm (series 31 image 55) and previously measured 1.4 x 1.2 cm. This corresponds to a avid nodule on PET/CT from June 18, 2022. Mild pancreatic atrophy. No dilation of the main pancreatic duct. Multiple T2 hyperintense cystic foci within the pancreatic parenchyma are similar in size and distribution compared to prior MRI. Pediatric Genetic Counselor cystic lesion measures 2.0 x 0.8 x 0. cm (series 17, image 28; series 12, image 45) previously 1.9 x 0.8 x 0.7 cm. Adrenals: Stable 1.1 cm lesion in the right adrenal gland with macroscopic fat consistent with myelolipoma. The adrenal glands are otherwise unremarkable. Kidneys: Kidneys are normal in size and signal. There is no hydronephrosis. Several subcentimeter simple appearing cyst in both kidneys. There is a cyst in the anterior left mid kidney measuring 1.8 cm with a thin septation and no enhancement consistent with a Bosniak 2 cyst (series 8, image 33). Retroperitoneal and Vasculature: No abdominal/retroperitonea l adenopathy is identified. Abdominal aorta and its visualized branches are patent. Mesenteric vasculature is patent. GI Tract: The stomach is filled with debris and fluid. No obvious focal lesions. Remainder of the bowel is unremarkable. Osseous Structures: Spinal fixation hardware is seen in the lower lumbar spine. No suspicious osseous lesions. IMPRESSION IMPRESSION: 1. Stable enhancing nodule in the tail the pancreas consistent with history of pancreatic neuroendocrine tumor. 2. 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 No solid components or other concerning features. These are stable from prior exam. 3. Mild hepatic steatosis. [facility] Radiology Study observation (narrative) [facility] MR Abdomen WO and W contrast IVOrdered By: Edy Eagle on 05-02-2023 [facility] Work Phone: No Panel InformationOrdered By: ritchie Casas on 02-19-2023 Urine Microalbumin/Creatinine Ratio 522.5 mg/g CRE <30 [facility] Thin prep Papanicolaou smear with manual screeningOrdered By: [facility] on 02-19-2023 Thin prep Papanicolaou smear with manual screening 627.0 mg/L NO RANGE EST. [facility] Urine creatinine measurement (mass/volume)Ordered By: Svetlana Casas on 02-19-2023 Creatinine (U) [Mass/Vol] 120.00 mg/dL NO RANGE EST. [facility] Absolute lymphocyte countOrd ered By: dignapelicanharper Casas on 02-18-2023 Lymphocytes Auto (Unsp spec) [#/Vol] 1.65 10*3/uL 0.83-4.51 [facility] Basophil percentageOrdered B y: Svetlana Casas on 02-18-2023 Basophils/100 WBC (Bld) 0.9 % 0-1 [facility] Bilirubin [Mass/Vol] 0.30 mg/dL 0.20-1.00 [facility] Comment on above: For patients on eltr ombopag therapy, use of Dimension Luke TBIL is not recommended. Chloride [Moles/Vol] 113 mmol/L 98-107 [facility] Eosinophils/100 WBC (Bld) 4.1 % 0-5 [facility] Glucose [Mass/Vol] 226 mg/dL 74-106 [facility] Comment on above: Glucose result great er than or equal to 200 mg/dLsuggests DIABETES MELLITUS per A.D.A. criteria. Neutrophils (Bld) [#/Vol] 5.4 10*3/uL 2.0-7.7 [facility] Neutrophils/100 WBC (Bld) 66.7 % 47-70 [facility] Potassium [Moles/Vol] 4.8 mmol/L 3.5-5.1 [facility] Protein [Mass/Vol] 7.3 g/dL 6.4-8.2 [facility] Sodium [Moles/Vol] 141 mmol/L 136-145 [facility] WBC (Bld) [#/Vol] 8.1 10*3/uL 4.4-11.0 [facility] Blood erythrocytes count (nu mber/volume)Ordered By: Svetlana Casas on 02-18-2023 RBC (Bld) [#/Vol] 4.09 10*6/uL 4.6-6.2 [facility] Blood hemoglobin measurement (mass/volume)Ordered By: Svetlana Casas on 02-18-2023 Hemoglobin (Bld) [Mass/Vol] 12.2 g/dL 13.0-16.5 [facility] Blood lymphocytes/100 leukoc ytesOrdered By: Svetlana Casas on 02-18-2023 Lymphocytes/100 WBC (Bld) 20.4 % 19-41 [facility] Blood monocytes/100 leukocyt esOrdered By: Svetlana Casas on 02-18-2023 Monocytes/100 WBC (Bld) 7.7 % 0-10 [facility] Blood platelet mean volumeOr dered By: Svetlana Casas on 02-18-2023 Platelet mean volume (Bld) [Entitic vol] 10.7 fL 6.2-12.0 [facility] Determination of erythrocyte mean corpuscular volume (MCV)Ordered By: Svetlana Casas on 02-18-2023 MCV (RBC) [Entitic vol] 98.8 fL 80-94 [facility] Hematocrit Auto (Bld) [Volum e fraction]Ordered By: Svetlana Casas on 02-18-2023 Hematocrit (Bld) [Volume fraction] 40.4 % 40-54 [facility] Laboratory - Chemistry and C hemistry - challengeOrdered By: Svetlana Casas on 02-18-2023 ALP [Catalytic activity/Vol] 93 U/L 45-117 [facility] ALT [Catalytic activity/Vol] 38 U/L 16-61 [facility] CO2 [Moles/Vol] 24.0 mmol/L 21.0-32.0 [facility] Globulin (S) [Mass/Vol] 3.6 g/dL 2.2-4.2 [facility] Urea nitrogen/Creatinine [Mass ratio] 18.7 mg/mg 10-20 [facility] Laboratory - Hematology and Cell countsOrdered By: Svetlana Casas on 02-18-2023 Erythrocyte distribution width (RBC) [Entitic vol] 49.1 fL 35.1-43.9 [facility] Erythrocyte distribution width (RBC) [Ratio] 13.5 % 11.6-14.6 [facility] Immature granulocytes/100 WBC (Bld) 0.200 % 0.0-0.9 [facility] Comment on above: IG% - Immature Granu locytes (promyelocytes, myelocytes and metamyelocytes) > 1% indicates that a LEFT SHIFT is Present. MCH (RBC) [Entitic mass] 29.8 pg 27.0-32.0 [facility] Nucleated RBC/100 WBC (Bld) [Ratio] 0 % 0-5 [facility] Laboratory - Hematology and Cell countson 02-18-2023 HbA1c (Bld) [Mass fraction] 7.1 % 4.2-6.3 [facility] MCHC Auto (RBC) [Mass/Vol]Or dered By: Svetlana Casas on 02-18-2023 MCHC (RBC) [Mass/Vol] 30.2 g/dL 32-36 [facility] No Panel InformationOrdered By: Svetlana Casas on 02-18-2023 Estimated GFR (MDRD) Amer 50 mL/min >60 [facility] Comment on above: GFR Calc Estimated GFR (MDRD) Non-Af Amer 42 mL/min >60 [facility] Comment on above: Non- GFR Calc Platelets bldOrdered By: Christoph Casas on 02-18-2023 Platelets (Bld) [#/Vol] 228 10*3/uL 150-450 [facility] Serum or plasma albumin candice urement (mass/volume)Ordered By: Svetlana Casas on 02-18-2023 Albumin [Mass/Vol] 3.7 g/dL 3.2-5.0 [facility] Serum or plasma albumin/glob ulin mass ratioOrdered By: Svetlana Casas on 02-18-2023 Albumin/Globulin [Mass ratio] 1.0 {ratio} 0.9-2.4 [facility] Serum or plasma calcium candice urement (mass/volume)Ordered By: dignapelicanharper Casas on 02-18-2023 Calcium [Mass/Vol] 9.2 mg/dL 8.5-10.1 [facility] Serum or plasma creatinine m easurement (mass/volume)Ordered By: dignapelicanharper Casas on 02-18-2023 Creatinine [Mass/Vol] 1.71 mg/dL 0.70-1.30 [facility] Comment on above: The validity of the calculated GFR & GFRAA in patients over 70 years has not been determined. Clinical correlation is essential. Serum or plasma urea nitroge n measurement (mass/volume)Ordered By: Svetlana Casas on 02-18-2023 Urea nitrogen [Mass/Vol] 32 mg/dL 7-18 [facility] Thin prep Papanicolaou smear with manual screeningOrdered By: dignapelicanharper Casas on 02-18-2023 Thin prep Papanicolaou smear with manual screening 32 U/L 15-37 [facility] Thin prep Papanicolaou smear with manual screening 4 5-15 [facility] Laboratory - Hematology and Cell countson 11-16-2022 HbA1c (Bld) [Mass fraction] 7.6 % 4.2-6.3 [facility] Basophil percentageOrdered B y: Svetlana Casas on 10-04-2022 Chloride [Moles/Vol] 109 mmol/L 98-107 [facility] Glucose [Mass/Vol] 212 mg/dL 74-106 [facility] Comment on above: Glucose result great er than or equal to 200 mg/dLsuggests DIABETES MELLITUS per A.D.A. criteria. Potassium [Moles/Vol] 4.1 mmol/L 3.5-5.1 [facility] Sodium [Moles/Vol] 139 mmol/L 136-145 [facility] Basophil percentageOrdered B y: Viktoriya Calvillo on 10-04-2022 Bilirubin [Mass/Vol] 0.50 mg/dL 0.20-1.00 [facility] Comment on above: For patients on eltr ombopag therapy, use of Dimension Luke TBIL is not recommended. Cholesterol [Mass/Vol] 119 mg/dL <200 [facility] Comment on above: <200 mg/dL Desirable 200-240 mg/dL Borderline >240 mg/dL High Risk Protein [Mass/Vol] 7.7 g/dL 6.4-8.2 [facility] Triglyceride [Mass/Vol] 205 mg/dL <199 [facility] Comment on above: The drugs N-Acetylcy steine and Metamizole may falsely depress this assay.Serum Triglycerides Reference Interval Normal <150 mg/dL Borderline high 150 - 199 mg/dL High 200 - 499 mg/dL Very High > or = 500 mg/dL Direct bilirubinOrdered By: Viktoriya Calvillo on 10-04-2022 Bilirubin.direct [Mass/Vol] 0.14 mg/dL 0.00-0.30 [facility] Laboratory - Chemistry and C hemistry - challengeOrdered By: Svetlana Casas on 10-04-2022 CO2 [Moles/Vol] 20.0 mmol/L 21.0-32.0 [facility] Urea nitrogen/Creatinine [Mass ratio] 15.4 mg/mg 10-20 [facility] Laboratory - Chemistry and C hemistry - challengeOrdered By: Viktoriya Calvillo on 10-04-2022 ALP [Catalytic activity/Vol] 109 U/L 45-117 [facility] ALT [Catalytic activity/Vol] 54 U/L 16-61 [facility] Globulin (S) [Mass/Vol] 3.5 g/dL 2.2-4.2 [facility] No Panel InformationOrdered By: Svetlana Casas on 10-04-2022 Estimated GFR (MDRD) Amer 45 mL/min >60 [facility] Comment on above: GFR Calc Estimated GFR (MDRD) Non-Af Amer 37 mL/min >60 [facility] Comment on above: Non- GFR Calc Serum or plasma albumin candice urement (mass/volume)Ordered By: Viktoriya Calvillo on 10-04-2022 Albumin [Mass/Vol] 4.2 g/dL 3.2-5.0 [facility] Serum or plasma calcium candice urement (mass/volume)Ordered By: Svetlana Casas on 10-04-2022 Calcium [Mass/Vol] 9.8 mg/dL 8.5-10.1 [facility] Serum or plasma cholesterol in HDL measurement (mass/volume)Ordered By: Viktoriya Calvillo on 10-04-2022 Cholesterol in HDL [Mass/Vol] 54 mg/dL >40 [facility] Comment on above: The drugs N-Acetylcy steine and Metamizole may falsely depress this assay. Reference Range HDL <40 mg/dL Low HDL Cholesterol HDL >or= 60 mg/dL High HDL Cholesterol Serum or plasma cholesterol in VLDL measurement (mass/volume)Ordered By: Viktoriya Calvillo on 10-04-2022 Cholesterol in VLDL [Mass/Vol] 41 mg/dL 5-40 [facility] Serum or plasma creatinine m easurement (mass/volume)Ordered By: Svetlana Casas on 10-04-2022 Creatinine [Mass/Vol] 1.88 mg/dL 0.70-1.30 [facility] Comment on above: The validity of the calculated GFR & GFRAA in patients over 70 years has not been determined. Clinical correlation is essential. Serum or plasma low density lipoprotein (LDL) cholesterol measurement (mass/volume)Ordered By: Viktoriya Calvillo on 10-04-2022 Cholesterol in LDL [Mass/Vol] 24 mg/dL 0-130 [facility] Serum or plasma urea nitroge n measurement (mass/volume)Ordered By: Svetlana Casas on 10-04-2022 Urea nitrogen [Mass/Vol] 29 mg/dL 7-18 [facility] Thin prep Papanicolaou smear with manual screeningOrdered By: Svetlana Casas on 10-04-2022 Thin prep Papanicolaou smear with manual screening 10 5-15 [facility] Thin prep Papanicolaou smear with manual screeningOrdered By: Viktoriya Calvillo on 10-04-2022 Thin prep Papanicolaou smear with manual screening 60 U/L 15-37 [facility] Laboratory - Hematology and Cell countson 08-15-2022 HbA1c (Bld) [Mass fraction] 7.6 % 4.2-6.3 [facility] GLUCOSE POCon 07-06-2022 Glucose [Mass/Vol] 137 mg/dL High 70 - 99 mg/dL [facility] Interpretation and review of laboratory results Abnormal [facility] POC Sample Type VENO [facility] Test performed at address of the patient encounter. [facility] UPPER EUSon 07-06-2022 [facility] Gastroenterology Patient Name: Sanchez Newman Procedure Date: 07/06/2022 3:06 PM Date of : 1945 Admit Type: Outpatient Age: 76 Room: EUS Proc Room 01 Gender: Male Note Status: Finalized Attending MD: Amado Murray DO, [id number] Procedure: Upper EUS Indications: Suspected mass in pancreas on MRI Providers: Amado Murray DO (Doctor), Cristhian Patiño (Nurse), Felicia Bonilla, YOSEPH (Nurse), Gumaro Mendoza, YOSEPH (Nurse), JEFFREY Brito (Anesthesia Staff) Patient Profile: Incidental finding on CT imagin of a Tail of pancreas lesion. 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 Findings confirmed on MRI and PET CT. Denies abdominal pain, jaundice, wt loss, h/o pancreatitis. Referring MD: Gay Sanderson APRN-GABRIELA (Referring MD), Franck Stewart MD (Referring MD) Medicines: Monitored Anesthesia Care Complications: No immediate complications. Procedure: Pre-Anesthesia Assessment: - Prior to the procedure, a History and Physical was performed, and patient medications and allergies were reviewed. The patient is competent. The risks and benefits of the procedure and the sedation options and risks were discussed with the patient. All questions were answered and informed consent was obtained. Patient identification and proposed procedure were verified by the physician, the nurse and the anesthesiologist in the procedure room at 15:40 PM. Mental Status Examination: alert and oriented. Airway Examination: normal oropharyngeal airway and neck mobility. Respiratory Examination: clear to auscultation. CV Examination: normal. Prophylactic Antibiotics: The patient does not require prophylactic antibiotics. Prior Anticoagulants: The patient has taken no anticoagulant or antiplatelet agents. ASA Grade Assessment: III - A patient with severe systemic disease. After reviewing the risks and benefits, the patient was deemed in satisfactory condition to undergo the procedure. The anesthesia plan was to use monitored anesthesia care (MAC). Immediately prior to administration of medications, the patient was re-assessed for adequacy to receive sedatives. The heart rate, respiratory rate, oxygen saturations, blood pressure, adequacy of pulmonary ventilation, and response to care were monitored throughout the procedure. The physical status of the patient was re-assessed after the procedure. After obtaining informed consent, the endoscope was passed under direct vision. Throughout the procedure, the patient's blood pressure, pulse, and oxygen saturations were monitored continuously. The Endosonoscope was introduced through the mouth, and advanced to the second part of duodenum. The upper EUS was accomplished without difficulty. The patient tolerated the procedure well. Findings: ENDOSCOPIC FINDING: : No gross lesions were noted at the gastroesophageal junction. No gross lesions were noted in the entire examined stomach. The ampulla was normal. No gross lesions were noted in the entire examined duodenum. ENDOSONOGRAPHIC FINDING: : The stomach, duodenum and adjacent structures were examined endosonographically. A round mass was identified in the pancreatic tail. The mass was hypoechoic. The mass measured 12 mm by 11 mm in maximal cross-sectional diameter. The endosonographic borders were well-defined. Fine needle biopsy was performed. Color Doppler imaging was utilized prior to needle puncture to confirm a lack of significant vascular structures within the needle path. Four passes were made with the 22 gauge Acquire biopsy needle using a transgastric approach. A visible core of tissue was obtained. A preliminary cytologic examination was performed. The cell (more content not included)... LAB, [facility] Radiology Study observation (narrative) [facility] [place] [id number] By: Adolph lua on 06-28-2022 Cancer Ag 19-9 Qn U/mL NINF - 37.00 U/mL [facility] Comment on above: This test was perfor med on the Code42 Immunoassay platform which is a 2-step sandwich chemiluminescent immunoassay. It is important to note that assays using different manufacturers and/or methods may not be comparable. Interpretation and review of laboratory results Normal [facility] COMPREHENSIVE METABOLIC PANE Andrea 06-28-2022 Albumin [Mass/Vol] 4.1 g/dL 3.5 - 5.0 g/dL [facility] ALP [Catalytic activity/Vol] 80 U/L 32 - 126 U/L [facility] ALT [Catalytic activity/Vol] 36 U/L 10 - 52 U/L [facility] Anion gap [Moles/Vol] 15 mmol/L 7 - 17 mmol/L [facility] AST [Catalytic activity/Vol] 37 U/L 10 - 39 U/L [facility] Bilirubin [Mass/Vol] 0.5 mg/dL NINF - 1.5 mg/dL [facility] Calcium [Mass/Vol] 9.1 mg/dL 8.6 - 10. 5 mg/dL [facility] Chloride [Moles/Vol] 107 mmol/L 98 - 10 8 mmol/L [facility] CO2 [Moles/Vol] 22 mmol/L 21 - 31 mmol/L [facility] Creatinine [Mass/Vol] 1.57 mg/dL High 0.70 - 1.30 mg/dL [facility] GFR/1.73 sq M.predicted CKD-EPI (S/P/Bld) [Vol rate/Area] 46 Low - PINF [facility] Comment on above: Reported eGFR is bas ed on the CKD-EPI 2020 equation using creatinine, age, and sex. Glucose [Mass/Vol] 195 mg/dL High 70 - 99 mg/dL [facility] Interpretation and review of laboratory results Abnormal [facility] Osmolality Calc [Osmolality] 304 [facility] Potassium [Moles/Vol] 4.3 mmol/L 3.5 - 5.0 mmol/L [facility] Protein [Mass/Vol] 6.4 g/dL 6.4 - 8.3 g/dL [facility] Sodium [Moles/Vol] 140 mmol/L 135 - 145 mmol/L [facility] Urea nitrogen [Mass/Vol] 25 mg/dL 7 - 25 mg/dL [facility] Urea nitrogen/Creatinine [Mass ratio] 16 mg/mg [facility] HEMOGLOBIN [id number] By: Yane Joseph on 06-28-2022 Average glucose Estimated from glycated hemoglobin (Bld) [Mass/Vol] 183 mg/dL [facility] HbA1c (Bld) [Mass fraction] 8.0 % High 4.7 - 5.6 % [facility] Interpretation and review of laboratory results Abnormal [facility] VITAMIN D, (1,25 DIHYDROXY)o n 06-28-2022 1,25-dihydroxyvitamin D [Mass/Vol] 22.1 pg/mL 20.0 - 79.0 pg/mL [facility] Interpretation and review of laboratory results Normal [facility] Vitamin D values hav e been shown to be falsely decreased in lipemic samples and should be interpreted with caution. [facility] PT Skull base to mid-thighon 06-26-2022 IMPRESSION: Intense tracer avid focus in the pancreatic tail, likely primary malignancy. Mildly tracer avid lymph nodes in the subcarinal and bilateral hilar regions are nonspecific. No definite other suspicious tracer avid foci or lymphadenopathy identified to suggest metastatic disease. OLOGY EXAM: NUC PET NEUROENDOCRINE, 06/26/2022 13:32 PM CLINICAL INDICATIONS: PNET; , COMPARISON: No prior studies available for comparison. CT DOSE: DLP: 540 mGy x cm kVp: 120 TECHNIQUE: Approximately 79 minutes following the injection of 4.32 mCi of Gallium-68 Dotatate, the patient was positioned on the Siemens Biograph mCT TOF< PET/CT-64, Enzo imaging unit. A low resolution non-contrast CT was obtained from the top of the head through the mid-femurs for use in attenuation correction and anatomic correlation. PET emission scans of this anatomic region were acquired shortly thereafter. Axial, sagittal, coronal and maximal intensity projection reconstruction images were presented for interpretation. FINDINGS: Head/Neck: Physiologic activity seen within the pituitary gland, salivary glands, and thyroid. Chest: Mildly tracer avid lymph nodes in the subcarinal and bilateral hilar regions are nonspecific. Abdomen/Pelvis: Intense physiologic uptake seen within the spleen and adrenal glands which can obscure potential disease in these structures. Milder physiologic uptake seen within the liver. There is an intense tracer avid focus in the pancreatic tail. Musculoskeletal: No definite suspicious tracer avid osseous foci. RADIOLOGY Lucy Carrillo MD - 06/26/2022 EXAM: NUC PET NEUROENDOCRINE, 06/26/2022 13:32 PM CLINICAL INDICATIONS: PNET; , COMPARISON: No prior studies available for comparison. CT DOSE: DLP: 540 mGy x cm kVp: 120 TECHNIQUE: Approximately 79 minutes following the injection of 4.32 mCi of Gallium-68 Dotatate, the patient was positioned on the Siemens Stageitgraph mCT TOF< PET/CT-64, Enzo imaging unit. A low resolution non-contrast CT was obtained from the top of the head through the mid-femurs for use in attenuation correction and anatomic correlation. PET emission scans of this anatomic region were acquired shortly thereafter. Axial, sagittal, coronal and maximal intensity projection reconstruction images were presented for interpretation. FINDINGS: Head/Neck: Physiologic activity seen within the pituitary gland, salivary glands, and thyroid. Chest: Mildly tracer avid lymph nodes in the subcarinal and bilateral hilar regions are nonspecific. Abdomen/Pelvis: Intense physiologic uptake seen within the spleen and adrenal glands which can obscure potential disease in these structures. Milder physiologic uptake seen within the liver. There is an intense tracer avid focus in the pancreatic tail. Musculoskeletal: No definite suspicious tracer avid osseous foci. IMPRESSION IMPRESSION: Intense tracer avid focus in the pancreatic tail, likely primary malignancy. Mildly tracer avid lymph nodes in the subcarinal and bilateral hilar regions are nonspecific. No definite other suspicious tracer avid foci or lymphadenopathy identified to suggest metastatic disease. [facility] Radiology Study observation (narrative) [facility] PT Skull base to mid-thighOr dered By: Lucy Carrillo on 06-26-2022 [facility] Work Phone: Laboratory - Hematology and Cell countson 05-16-2022 HbA1c (Bld) [Mass fraction] 7.2 % 4.2-6.3 [facility] Basophil percentageOrdered B y: Nicholas Bishop on 04-17-2022 Chloride [Moles/Vol] 108 mmol/L 98-107 [facility] Glucose [Mass/Vol] 159 mg/dL 74-106 [facility] Comment on above: Fasting Glucose resu lt greater than or equal to 126 mg/dL suggests DIABETES MELLITUS per A.D.A. criteria. Potassium [Moles/Vol] 4.1 mmol/L 3.5-5.1 [facility] Sodium [Moles/Vol] 139 mmol/L 136-145 [facility] Laboratory - Chemistry and C hemistry - challengeOrdered By: Nicholas Bishop on 04-17-2022 CO2 [Moles/Vol] 26.0 mmol/L 21.0-32.0 [facility] Urea nitrogen/Creatinine [Mass ratio] 11.9 mg/mg 02-15 [facility] No Panel InformationOrdered By: Nicholas Bishop on 04-17-2022 Estimated GFR (MDRD) Amer 58 mL/min >60 [facility] Comment on above: GFR Calc Estimated GFR (MDRD) Non-Af Amer 48 mL/min >60 [facility] Comment on above: Non- GFR Calc Serum or plasma calcium candice urement (mass/volume)Ordered By: Nicholas Bishop on 04-17-2022 Calcium [Mass/Vol] 9.4 mg/dL 8.5-10.1 [facility] Serum or plasma creatinine m easurement (mass/volume)Ordered By: Nicholas Bishop on 04-17-2022 Creatinine [Mass/Vol] 1.51 mg/dL 0.70-1.30 [facility] Comment on above: The validity of the calculated GFR & GFRAA in patients over 70 years has not been determined. Clinical correlation is essential. Serum or plasma urea nitroge n measurement (mass/volume)Ordered By: Nicholas Bishop on 04-17-2022 Urea nitrogen [Mass/Vol] 18 mg/dL 11-13 [facility] Thin prep Papanicolaou smear with manual screeningOrdered By: Nicholas Bishop on 04-17-2022 Thin prep Papanicolaou smear with manual screening 5 5-15 [facility] Basophil percentageOrdered B y: Nicholas Bishop on 04-05-2022 Bilirubin [Mass/Vol] 0.50 mg/dL 0.20-1.00 [facility] Comment on above: For patients on eltr ombopag therapy, use of Dimension Luke TBIL is not recommended. Chloride [Moles/Vol] 107 mmol/L 98-107 [facility] Glucose [Mass/Vol] 363 mg/dL 74-106 [facility] Comment on above: Glucose result great er than or equal to 200 mg/dLsuggests DIABETES MELLITUS per A.D.A. criteria. Potassium [Moles/Vol] 5.1 mmol/L 3.5-5.1 [facility] Protein [Mass/Vol] 6.7 g/dL 6.4-8.2 [facility] Sodium [Moles/Vol] 139 mmol/L 136-145 [facility] WBC (Bld) [#/Vol] 9.4 10*3/uL 4.4-11.0 [facility] Blood erythrocytes count (nu mber/volume)Ordered By: Nicholas Bishop on 04-05-2022 RBC (Bld) [#/Vol] 4.44 10*6/uL 4.6-6.2 [facility] Blood hemoglobin measurement (mass/volume)Ordered By: Nicholas Bishop on 04-05-2022 Hemoglobin (Bld) [Mass/Vol] 12.7 g/dL 13.0-16.5 [facility] Blood platelet mean volumeOr dered By: Nicholas Bishop on 04-05-2022 Platelet mean volume (Bld) [Entitic vol] 11.5 fL 6.2-12.0 [facility] Determination of erythrocyte mean corpuscular volume (MCV)Ordered By: Nicholas Bishop on 04-05-2022 MCV (RBC) [Entitic vol] 90.3 fL 80-94 [facility] Hematocrit Auto (Bld) [Volum e fraction]Ordered By: Nicholas Bishop on 04-05-2022 Hematocrit (Bld) [Volume fraction] 40.1 % 40-54 [facility] Laboratory - Chemistry and C hemistry - challengeOrdered By: Nicholas Bishop on 04-05-2022 ALP [Catalytic activity/Vol] 94 U/L 45-117 [facility] ALT [Catalytic activity/Vol] 36 U/L 16-61 [facility] CO2 [Moles/Vol] 24.0 mmol/L 21.0-32.0 [facility] Globulin (S) [Mass/Vol] 3.4 g/dL 2.2-4.2 [facility] Urea nitrogen/Creatinine [Mass ratio] 16.3 mg/mg 10-20 [facility] Laboratory - Hematology and Cell countsOrdered By: Nicholas Bishop on 04-05-2022 Erythrocyte distribution width (RBC) [Entitic vol] 48.1 fL 35.1-43.9 [facility] Erythrocyte distribution width (RBC) [Ratio] 14.6 % 11.6-14.6 [facility] MCH (RBC) [Entitic mass] 28.6 pg 27.0-32.0 [facility] MCHC Auto (RBC) [Mass/Vol]Or dered By: Nicholas Bishop on 04-05-2022 MCHC (RBC) [Mass/Vol] 31.7 g/dL 32-36 [facility] No Panel InformationOrdered By: Nicholas Bishop on 04-05-2022 Estimated GFR (MDRD) Amer 45 mL/min >60 [facility] Comment on above: GFR Calc Estimated GFR (MDRD) Non-Af Amer 37 mL/min >60 [facility] Comment on above: Non- GFR Calc Platelets bldOrdered By: Miri Bishop on 04-05-2022 Platelets (Bld) [#/Vol] 182 10*3/uL 150-450 [facility] Serum or plasma albumin candice urement (mass/volume)Ordered By: Nicholas Bishop on 04-05-2022 Albumin [Mass/Vol] 3.3 g/dL 3.2-5.0 [facility] Serum or plasma albumin/glob ulin mass ratioOrdered By: Nicholas Bishop on 04-05-2022 Albumin/Globulin [Mass ratio] 1.0 {ratio} 0.9-2.4 [facility] Serum or plasma calcium candice urement (mass/volume)Ordered By: Nicholas Bishop on 04-05-2022 Calcium [Mass/Vol] 9.2 mg/dL 8.5-10.1 [facility] Serum or plasma creatinine m easurement (mass/volume)Ordered By: Nicholas Bishop on 04-05-2022 Creatinine [Mass/Vol] 1.90 mg/dL 0.70-1.30 [facility] Comment on above: The validity of the calculated GFR & GFRAA in patients over 70 years has not been determined. Clinical correlation is essential. Serum or plasma urea nitroge n measurement (mass/volume)Ordered By: Nicholas Bishop on 04-05-2022 Urea nitrogen [Mass/Vol] 31 mg/dL 7-18 [facility] Thin prep Papanicolaou smear with manual screeningOrdered By: Nicholas Bishop on 04-05-2022 Thin prep Papanicolaou smear with manual screening 38 U/L 15-37 [facility] Thin prep Papanicolaou smear with manual screening 8 5-15 [facility] Glucose Glucometer (BldC) [M ass/Vol]Ordered By: Dr. Torres on 03-25-2022 Glucose [Mass/Vol] 385 mg/dL 74-106 [facility] Comment on above: MANAGEMENT OF PATIEN T CARE PER NURSING PROTOCOL Absolute lymphocyte countOrd ered By: Dr. Curiel on 03-24-2022 Lymphocytes Auto (Unsp spec) [#/Vol] 1.19 10*3/uL 0.83-4.51 [facility] Basophil percentageOrdered B y: Dr. Torres on 03-24-2022 Basophil percentage 2.0 mg/dL 2.5-4.9 [facility] Basophil percentageOrdered B y: Dr. Curiel on 03-24-2022 Basophils/100 WBC (Bld) 0.6 % 0-1 [facility] Chloride [Moles/Vol] 105 mmol/L 98-107 [facility] Eosinophils/100 WBC (Bld) 0.2 % 0-5 [facility] Glucose [Mass/Vol] 115 mg/dL 74-106 [facility] Comment on above: Fasting Glucose resu lt from 100 to 125 mg/dL suggests IMPAIRED HOMEOSTASIS per A.D.A. criteria. Neutrophils (Bld) [#/Vol] 4.2 10*3/uL 2.0-7.7 [facility] Neutrophils/100 WBC (Bld) 66.0 % 47-70 [facility] Potassium [Moles/Vol] 4.2 mmol/L 3.5-5.1 [facility] Sodium [Moles/Vol] 140 mmol/L 136-145 [facility] WBC (Bld) [#/Vol] 6.3 10*3/uL 4.4-11.0 [facility] Basophil percentageOrdered B y: Dr. Barclay on 03-24-2022 Bilirubin [Mass/Vol] 0.30 mg/dL 0.20-1.00 [facility] Comment on above: For patients on eltr ombopag therapy, use of Dimension Luke TBIL is not recommended. Protein [Mass/Vol] 6.6 g/dL 6.4-8.2 [facility] Blood erythrocytes count (nu mber/volume)Ordered By: Dr. Curiel on 03-24-2022 RBC (Bld) [#/Vol] 4.04 10*6/uL 4.6-6.2 [facility] Blood hemoglobin measurement (mass/volume)Ordered By: Dr. Curiel on 03-24-2022 Hemoglobin (Bld) [Mass/Vol] 11.3 g/dL 13.0-16.5 [facility] Blood lymphocytes/100 leukoc ytesOrdered By: Dr. Curiel on 03-24-2022 Lymphocytes/100 WBC (Bld) 18.9 % 19-41 [facility] Blood monocytes/100 leukocyt esOrdered By: Dr. Curiel on 03-24-2022 Monocytes/100 WBC (Bld) 13.8 % 0-10 [facility] Blood platelet mean volumeOr dered By: Dr. Curiel on 03-24-2022 Platelet mean volume (Bld) [Entitic vol] 10.6 fL 6.2-12.0 [facility] Determination of erythrocyte mean corpuscular volume (MCV)Ordered By: Dr. Curiel on 03-24-2022 MCV (RBC) [Entitic vol] 89.6 fL 80-94 [facility] Direct bilirubinOrdered By: Dr. Barclay on 03-24-2022 Bilirubin.direct [Mass/Vol] 0.06 mg/dL 0.00-0.30 [facility] Hematocrit Auto (Bld) [Volum e fraction]Ordered By: Dr. Curiel on 03-24-2022 Hematocrit (Bld) [Volume fraction] 36.2 % 40-54 [facility] Influenza virus A and B and SARS-CoV-2 (COVID-19) Ag panel - Upper respiratory specimOrdered By: Dr. Curiel on 03-24-2022 SARS-CoV-2 (COVID-19) RNA JAGDEEP+probe Ql (Resp) [facility] Laboratory - Chemistry and C hemistry - challengeOrdered By: Dr. Barclay on 03-24-2022 ALP [Catalytic activity/Vol] 90 U/L 45-117 [facility] ALT [Catalytic activity/Vol] 50 U/L 16-61 [facility] Globulin (S) [Mass/Vol] 3.1 g/dL 2.2-4.2 [facility] Laboratory - Chemistry and C hemistry - challengeOrdered By: Dr. Curiel on 03-24-2022 CO2 [Moles/Vol] 29.0 mmol/L 21.0-32.0 [facility] Urea nitrogen/Creatinine [Mass ratio] 17.6 mg/mg 10-20 [facility] Laboratory - Chemistry and C hemistry - challengeOrdered By: Dr. Torres on 03-24-2022 Magnesium [Mass/Vol] 3.3 mg/dL 1.6-2.6 [facility] Laboratory - Hematology and Cell countsOrdered By: Dr. Curiel on 03-24-2022 Erythrocyte distribution width (RBC) [Entitic vol] 46.6 fL 35.1-43.9 [facility] Erythrocyte distribution width (RBC) [Ratio] 14.4 % 11.6-14.6 [facility] Immature granulocytes/100 WBC (Bld) 0.500 % 0.0-0.9 [facility] Comment on above: IG% - Immature Granu locytes (promyelocytes, myelocytes and metamyelocytes) > 1% indicates that a LEFT SHIFT is Present. MCH (RBC) [Entitic mass] 28.0 pg 27.0-32.0 [facility] Nucleated RBC/100 WBC (Bld) [Ratio] 0 % 0-5 [facility] MCHC Auto (RBC) [Mass/Vol]Or dered By: Dr. Curiel on 03-24-2022 MCHC (RBC) [Mass/Vol] 31.2 g/dL 32-36 [facility] No Panel InformationOrdered By: Dr. Curiel on 03-24-2022 D-Dimer Quantitative (PE/DVT) 0.84 FEU/ug/m 0.27-0.49 [facility] Comment on above: CRITICAL VALUE VERIF IED. CALLED TO [id number] Isabel Tesfaye.RESULTS READ BACK BY SAME . D-Dimer ELEVATED (>0.49): Additional studies and clinicalassessments are indicated to conclude diagnosis of:Deep Vein Thrombosis (DVT) or Pulmonary Embolism (PE) Estimated Creatinine Clearance Calc 44.43 ml/min [facility] Estimated GFR (MDRD) Amer 57 mL/min >60 [facility] Comment on above: GFR Calc Estimated GFR (MDRD) Non-Af Amer 47 mL/min >60 [facility] Comment on above: Non- GFR Calc Troponin I High Sensitivity 28 pg/mL 3.0-78.0 [facility] Comment on above: Please Note: New Tamika t Units and Gender Specific Reference Ranges. For more information see Policy Stat Procedure Luke High Sensitivity Troponin (TNIH) and attachments. Platelets bldOrdered By: Dr. Curiel on 03-24-2022 Platelets (Bld) [#/Vol] 161 10*3/uL 150-450 [facility] Serum or plasma albumin candice urement (mass/volume)Ordered By: Dr. Barclay on 03-24-2022 Albumin [Mass/Vol] 3.5 g/dL 3.2-5.0 [facility] Serum or plasma calcium candice urement (mass/volume)Ordered By: Dr. Curiel on 03-24-2022 Calcium [Mass/Vol] 8.9 mg/dL 8.5-10.1 [facility] Serum or plasma creatinine m easurement (mass/volume)Ordered By: Dr. Curiel on 03-24-2022 Creatinine [Mass/Vol] 1.53 mg/dL 0.70-1.30 [facility] Comment on above: The validity of the calculated GFR & GFRAA in patients over 70 years has not been determined. Clinical correlation is essential. Serum or plasma urea nitroge n measurement (mass/volume)Ordered By: Dr. Curiel on 03-24-2022 Urea nitrogen [Mass/Vol] 27 mg/dL 7-18 [facility] Thin prep Papanicolaou smear with manual screeningOrdered By: Dr. Curiel on 03-24-2022 Thin prep Papanicolaou smear with manual screening 6 5-15 [facility] Thin prep Papanicolaou smear with manual screeningOrdered By: Dr. Barclay on 03-24-2022 Thin prep Papanicolaou smear with manual screening 45 U/L 15-37 [facility] Absolute lymphocyte countOrd ered By: Dr. Casas on 02-09-2022 Lymphocytes Auto (Unsp spec) [#/Vol] 1.53 10*3/uL 0.83-4.51 [facility] Basophil percentageOrdered B y: Dr. Casas on 02-09-2022 Basophils/100 WBC (Bld) 0.7 % 0-1 [facility] Chloride [Moles/Vol] 106 mmol/L 98-107 [facility] Eosinophils/100 WBC (Bld) 2.2 % 0-5 [facility] Glucose [Mass/Vol] 179 mg/dL 74-106 [facility] Comment on above: Fasting Glucose resu lt greater than or equal to 126 mg/dL suggests DIABETES MELLITUS per A.D.A. criteria. Neutrophils (Bld) [#/Vol] 4.6 10*3/uL 2.0-7.7 [facility] Neutrophils/100 WBC (Bld) 67.2 % 47-70 [facility] Potassium [Moles/Vol] 4.7 mmol/L 3.5-5.1 [facility] Sodium [Moles/Vol] 140 mmol/L 136-145 [facility] WBC (Bld) [#/Vol] 6.8 10*3/uL 4.4-11.0 [facility] Blood erythrocytes count (nu mber/volume)Ordered By: Dr. Casas on 02-09-2022 RBC (Bld) [#/Vol] 4.00 10*6/uL 4.6-6.2 [facility] Blood hemoglobin measurement (mass/volume)Ordered By: Dr. Casas on 02-09-2022 Hemoglobin (Bld) [Mass/Vol] 11.6 g/dL 13.0-16.5 [facility] Blood lymphocytes/100 leukoc ytesOrdered By: Dr. Casas on 02-09-2022 Lymphocytes/100 WBC (Bld) 22.6 % 19-41 [facility] Blood monocytes/100 leukocyt esOrdered By: Dr. Casas on 02-09-2022 Monocytes/100 WBC (Bld) 6.9 % 0-10 [facility] Blood platelet mean volumeOr dered By: Dr. Casas on 02-09-2022 Platelet mean volume (Bld) [Entitic vol] 10.7 fL 6.2-12.0 [facility] Determination of erythrocyte mean corpuscular volume (MCV)Ordered By: Dr. Casas on 02-09-2022 MCV (RBC) [Entitic vol] 93.3 fL 80-94 [facility] Hematocrit Auto (Bld) [Volum e fraction]Ordered By: Dr. Casas on 02-09-2022 Hematocrit (Bld) [Volume fraction] 37.3 % 40-54 [facility] Laboratory - Chemistry and C hemistry - challengeOrdered By: Dr. Casas on 02-09-2022 CO2 [Moles/Vol] 27.0 mmol/L 21.0-32.0 [facility] Urea nitrogen/Creatinine [Mass ratio] 17.0 mg/mg 10-20 [facility] Laboratory - Hematology and Cell countsOrdered By: Dr. Casas on 02-09-2022 Erythrocyte distribution width (RBC) [Entitic vol] 48.3 fL 35.1-43.9 [facility] Erythrocyte distribution width (RBC) [Ratio] 14.2 % 11.6-14.6 [facility] Immature granulocytes/100 WBC (Bld) 0.400 % 0.0-0.9 [facility] Comment on above: IG% - Immature Granu locytes (promyelocytes, myelocytes and metamyelocytes) > 1% indicates that a LEFT SHIFT is Present. MCH (RBC) [Entitic mass] 29.0 pg 27.0-32.0 [facility] Nucleated RBC/100 WBC (Bld) [Ratio] 0 % 0-5 [facility] Laboratory - Hematology and Cell countson 02-09-2022 HbA1c (Bld) [Mass fraction] 7.1 % 4.2-6.3 [facility] MCHC Auto (RBC) [Mass/Vol]Or dered By: Dr. Casas on 02-09-2022 MCHC (RBC) [Mass/Vol] 31.1 g/dL 32-36 [facility] No Panel InformationOrdered By: Dr. Casas on 02-09-2022 Estimated GFR (MDRD) Amer 60 mL/min >60 [facility] Comment on above: GFR Calc Estimated GFR (MDRD) Non-Af Amer 50 mL/min >60 [facility] Comment on above: Non- GFR Calc Platelets bldOrdered By: Dr. Casas on 02-09-2022 Platelets (Bld) [#/Vol] 210 10*3/uL 150-450 [facility] Serum or plasma calcium candice urement (mass/volume)Ordered By: Dr. Casas on 02-09-2022 Calcium [Mass/Vol] 9.8 mg/dL 8.5-10.1 [facility] Serum or plasma creatinine m easurement (mass/volume)Ordered By: Dr. Casas on 02-09-2022 Creatinine [Mass/Vol] 1.47 mg/dL 0.70-1.30 [facility] Comment on above: The validity of the calculated GFR & GFRAA in patients over 70 years has not been determined. Clinical correlation is essential. Serum or plasma urea nitroge n measurement (mass/volume)Ordered By: Dr. Casas on 02-09-2022 Urea nitrogen [Mass/Vol] 25 mg/dL 7-18 [facility] Thin prep Papanicolaou smear with manual screeningOrdered By: Dr. Casas on 02-09-2022 Thin prep Papanicolaou smear with manual screening 7 5-15 [facility] Carboxyhemoglobinon 10-28-19 Carboxyhemoglobin (Bld) [Mass/Vol] 3.4 % 0.0-1.5 [facility] Work Phone: Comment on above: * NON-SMOKER RANGE 1 .6 - 5.0% * LIGHT SMOKER RANGE 5.1 - 9.0% * HEAVY SMOKER RANGE Laboratory - Hematology and Cell countson 07-03-2021 HbA1c (Bld) [Mass fraction] 7.3 % 4.2-6.3 [facility] Work Phone: Urine creatinine measurement (mass/volume)on 06-30-2021 Creatinine (U) [Mass/Vol] 106.00 mg/dL NO RANGE EST. [facility] Work Phone: Urine protein measurement (m ass/volume)on 06-30-2021 Protein (U) [Mass/Vol] 44.3 mg/dL 0.0-11.8 [facility] Work Phone: Urine protein/creatinine mas s ratioon 06-30-2021 Protein/Creatinine (U) [Mass ratio] 418 mg/g CRE 0-200 [facility] Work Phone: Basophil percentageon 2021 Basophil percentage 2.6 mg/dL 2.5-4.9 [facility] Work Phone: Chloride [Moles/Vol] 105 mmol/L 98-107 [facility]: Glucose [Mass/Vol] 157 mg/dL 74-106 [facility] Work Phone: Comment on above: Fasting Glucose resu lt greater than or equal to 126 mg/dL suggests DIABETES MELLITUS per A.D.A. criteria. Potassium [Moles/Vol] 4.2 mmol/L 3.5-5.1 [facility] Work Phone: Sodium [Moles/Vol] 135 mmol/L 136-145 [facility] Work Phone: WBC (Bld) [#/Vol] 7.9 10*3/uL 4.4-11.0 [facility] Work Phone: Blood erythrocytes count (nu mber/volume)on 06-27-2021 RBC (Bld) [#/Vol] 4.26 10*6/uL 4.6-6.2 [facility] Work Phone: Blood hemoglobin measurement (mass/volume)on 06-27-2021 Hemoglobin (Bld) [Mass/Vol] 11.9 g/dL 13.0-16.5 [facility] Work Phone: [phone] Blood platelet mean volumeon 06-27-2021 Platelet mean volume (Bld) [Entitic vol] 10.0 fL 6.2-12.0 [facility] Work Phone: [phone] Determination of erythrocyte mean corpuscular volume (MCV)on 06-27-2021 MCV (RBC) [Entitic vol] 88.0 fL 80-94 [facility] Work Phone: [phone] Hematocrit Auto (Bld) [Volum e fraction]on 06-27-2021 Hematocrit (Bld) [Volume fraction] 37.5 % 40-54 [facility] Work Phone: [phone] Laboratory - Chemistry and C hemistry - challengeon 06-27-2021 CO2 [Moles/Vol] 25.0 mmol/L 21.0-32.0 [facility] Work Phone: [phone] Urea nitrogen/Creatinine [Mass ratio] 13.4 mg/mg 10-20 [facility] Work Phone: [phone] Laboratory - Hematology and Cell countson 06-27-2021 Erythrocyte distribution width (RBC) [Entitic vol] 46.0 fL 35.1-43.9 [facility] Work Phone: [phone] Erythrocyte distribution width (RBC) [Ratio] 14.2 % 11.6-14.6 [facility] Work Phone: [phone] MCH (RBC) [Entitic mass] 27.9 pg 27.0-32.0 [facility] Work Phone: [phone] MCHC Auto (RBC) [Mass/Vol]on 06-27-2021 MCHC (RBC) [Mass/Vol] 31.7 g/dL 32-36 [facility] Work Phone: No Panel Informationon 06-27 Estimated GFR (MDRD) Amer 56 mL/min >60 [facility] Work Phone: Comment on above: GFR Calc Estimated GFR (MDRD) Non-Af Amer 46 mL/min >60 [facility] Work Phone: Comment on above: Non- GFR Calc Parathyroid Hormone (Intact) 44.7 pg/mL 18.4-80.1 [facility] Work Phone: Vitamin D 25-Hydroxy 37.8 ng/mL [facility] Work Phone: Comment on above: Vitamin D 25(OH) Sta tus Range Deficiency <20 ng/mL (50nmol/L) Insufficiency 20 - 30 ng/mL (50 - 75 nmol/L) Sufficiency 30 - 100 ng/mL (75 - 250 nmol/L) Toxicity >100 ng/mL (>250 nmol/L) Platelets bldon 06-27-2021 Platelets (Bld) [#/Vol] 236 10*3/uL 150-450 [facility] Work Phone: Serum or plasma albumin candice urement (mass/volume)on 06-27-2021 Albumin [Mass/Vol] 3.9 g/dL 3.2-5.0 [facility] Work Phone: [phone] Serum or plasma calcium candice urement (mass/volume)on 06-27-2021 Calcium [Mass/Vol] 9.4 mg/dL 8.5-10.1 [facility] Work Phone: [phone] Serum or plasma creatinine m easurement (mass/volume)on 06-27-2021 Creatinine [Mass/Vol] 1.57 mg/dL 0.70-1.30 [facility] Work Phone: Comment on above: The validity of the calculated GFR & GFRAA in patients over 70 years has not been determined. Clinical correlation is essential. Serum or plasma urea nitroge n measurement (mass/volume)on 06-27-2021 Urea nitrogen [Mass/Vol] 21 mg/dL 11-13 [facility] Work Phone: Clinical Summary: Mar cosby 06-12-2021 MC75 OP Visit Invalid Interpretation Code [facility] Work Phone: ANES Matthias 07-14-2018 ANES POST HNO ID: [id number] Author: Justin Stephens Service: Anesthesiology Author Type: Anesthesiologist Type: Anesthesia PostOp Filed: 07/14/2018 5:09 PM Note Text: POST ANESTHESIA EVALUATION NOTE SERVICE DATE: 07/14/2018 SERVICE TIME: 3 : 1945 Vitals: 07/14/18 0633 07/14/18 0908 07/14/18 1000 07/14/18 1200 Temp: 36.2 ?C (97.2 ?F) 36 ?C (96.8 ?F) 36.1 ?C (97 ?F) 36 ?C (96.8 ?F) 07/14/18 1000 07/14/18 1015 07/14/18 1030 07/14/18 1200 BP: 120/67 119/64 105/53 137/69 07/14/18 1000 07/14/18 1015 07/14/18 1030 07/14/18 1200 Pulse: 64 (!) 58 (!) 57 (!) 58 07/14/18 1000 07/14/18 1015 07/14/18 1030 07/14/18 1200 Resp: 16 16 16 16 07/14/18 1000 07/14/18 1015 07/14/18 1030 07/14/18 1200 SpO2: 95% 95% 98% 99% Validated Vital Signs: Yes POST ANES STATUS: No apparent anesthetic complications. The patient is appropriately hydrated with stable respiratory and cardiovascular status. Patient has safe and adequate airway control. The patient has appropriate pain relief and no significant post operative nausea or vomiting. The patient has achieved baseline mental status. Further assessment by Anesthesia Service: None Other Remarks: SIGNATURE: Justin Stephens MD PATIENT NAME: Sanchez Newman DATE: July 14, 2018 TIME: 5:09 PM PAGER/CONTACT #: [phone] [facility] ANES PREOPon 07-14-2018 ANES PREOP HNO ID: [id number] Author: Justin Stephens Service: Anesthesiology Author Type: Anesthesiologist Type: Anesthesia PreOp Filed: 07/14/2018 7:06 AM Note Text: ANESTHESIOLOGY DAY OF SURGERY NOTE SERVICE DATE: 07/14/2018 SERVICE TIME: 7:06 AM : 1945 Procedure(s) (LRB): RECONSTRUCTION TOE HAMMER (Left) Surgeon(s): Tisha Reese Estimated body mass index is 22.84 kg/m? as calculated from the following: Height as of this encounter: 180 cm (5' 10.87). Weight as of this encounter: 74 kg (163 lb 2.3 oz). Most recent hematocrit and potassium results: Hematocrit 42.1 07/07/2018 Potassium 4.6 07/07/2018 ANES DOS/PREOP NOTE: Vitals: 07/14/18 0633 BP: 127/64 Pulse: (!) 52 Resp: 16 Temp: 36.2 ?C (97.2 ?F) TempSrc: Temporal Artery SpO2: 99% Weight: 74 kg (163 lb 2.3 oz) Height: 180 cm (5' 10.87) ACTIVE PROBLEM LIST Atherosclerosis of [place] Coronary Artery Transient Ischemic Deafness Essential Hypertension Gerd (Gastroesophageal Reflux Disease) Flexor Tenosynovitis of Finger Chronic Left Shoulder Pain Hyperlipidemia Ldl Goal <100 Diverticulitis Status Post Insertion of Drug-Eluting Stent into Left Anterior Descending (Lad) Artery Sensorineural Hearing Loss (Snhl) of Both Ears Restless Leg Syndrome Controlled Type 2 Diabetes Mellitus With Stage 3 Chronic Kidney Disease, Without Long-Term Current Use of Insulin (Hcc) Anemia Diaphragmatic 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 Manic Episode, Unspecified (Hcc) Old Myocardial Infarction Personal History of Pulmonary Embolism Polyp of Stomach and Duodenum Presence of Coronary Angioplasty Implant and Graft Pulmonary Embolism (Hcc) Pure Hypercholesterolemia, Unspecified Supraventricular Tachycardia (Hcc) Hearing Loss Ventricular Tachycardia (Hcc) Status Post Placement of Implantable Loop Recorder Bipolar Disorder (Hcc) PAST MEDICAL HISTORY Diagnosis Date - Acute gastritis without mention of hemorrhage - Adjustment disorder with depressed mood - Atherosclerotic heart disease of [place] coronary artery without angina pectoris - Chronic peptic ulcer of unspecified site without mention of hemorrhage or perforation, with obstruction - Coronary artery disease - Depression 02/25/2012 - Diverticulosis of colon (without mention of hemorrhage) - DM II 12/26/2004 - Duodenitis without mention of hemorrhage - dyslipidemia - essential hypertension - Hyperlipidemia LDL goal <100 08/15/2015 - Long-term use of high-risk medication - Lumbar disc disease with radiculopathy 06/24/2012 - Meningitis of unspecified cause - Other diseases of pharynx, not elsewhere classified(478.29) OBST. SLEEP APNEA - Peripheral arterial occlusive disease (HCC) - Presence of stent in coronary artery - Spinal stenosis, lumbar region, with neurogenic claudication 06/25/2014 - Status post placement of implantable loop recorder - Syncope and collapse - Transient ischemic deafness LT. EAR - Unspecified cardiovascular disease - Unspecified constipation - Unspecified disorder of kidney and ureter Renal insufficiency PAST SURGICAL HISTORY Procedure Laterality Date - APPENDECTOMY - ARTERIOGRAM FOLLOW UP Left 06/05/2018 abdominal pelvic left lower extremity--[facility] - COLONOSCOP W/ OR W/O [facility] SPEC Colonoscopy - COLONOSCOP W/ OR W/O [facility] SPEC 10/18/2008 Colonoscopy - EGD W/O [facility] SPECIMEN W/BX 04/28/10 Gastritis, duodenitis - INSER NON-TUNNEL CVC >= 5 YR 08/15/06 - LAPAROSCOPIC HEMICOLECTOMY 08/15/06 - OPEN CORONARY ENDARTERECTOMY 2016 Angioplasty W/ STENT, PCI LAD 96', PCI LAD 2011. - PAST SURGICAL HISTORY OF BACK FUSION TIMES 2 - PAST SURGICAL HISTORY OF 10/2014 lumbar fusion- done at [facility] in [place] - PAST SURGICAL HISTORY OF 06/24/2015 right 3rd and 5th trigger finger release - PAST SURGICAL HISTORY OF 06/29/2015 IANDD right 3rd finger - REMOVAL GALLBLADDER - REMOVAL OF NAIL BED 09/24/12 Removal right middle finger nail bed - REMOVAL OF TONSILS,<12 Y/O Tonsillectomy - REPAIR EPIGASTRIC HERNIA,REDUC Hiatal hernia repair FAMILY HISTORY Problem Relation Age of Onset - other (Aneurysm brain) Mother - Diabetes Father - Colon Cancer Father around age 70 - Heart Paternal Uncle - Heart Brother - Diabetes Brother - Cancer Brother lung cancer-- age 52 - Colon Cancer Maternal Grandfather Social History: Social History Tobacco Use - Smoking status: Former Smoker Packs/day: 0.50 Years: 5.00 Pack years: 2.50 Types: Cigarettes Last attempt to quit: 04/29/1967 Years since quittin.2 - Smokeless tobacco: Former User Types: Chew - Tobacco comment: smoker as teen Substance Use Topics - Alcohol use: No - Drug use: No No current facility-administered medications on file prior to encounter. Current Outpatient Medications on File Prior to Encounter: traZODone (DESYREL) 100 mg tablet Take 300 mg by mouth daily at bedtime. lisinopril (ZESTRIL, PRINIVIL) 10 mg tablet Take 10 mg by mouth once daily. meloxicam (MOBIC) 15 mg tablet Take 1 tablet by mouth once daily. Take with food. glimepiride (AMARYL) 4 mg tablet Two tablets with breakfast metFORMIN (GLUCOPHAGE) 500 mg tablet 500mg by mouth before supper only tiZANidine (ZANAFLEX) 4 mg tablet Take 1 tablet by mouth every 8 hours as needed. [employer] ULTRA BLUE TEST STRIP test strip USE STRIP TO CHECK GLUCOSE TWICE DAILY blood sugar diagnostic (BLOOD GLUCOSE TEST) test strip Test blood sugar 1 (one) times daily. Dx: Type 2 DM - Controlled E11.9 Insulin: No, Variable Blood glucose readings hydrOXYzine HCl (ATARAX) 25 mg tablet Take 1 tablet by mouth every 6 hours as needed for Itching/Rash or Anxiety. Take one tablet by mouth at bedtime as needed for sleep omeprazole (PRILOSEC) 20 mg capsule Take 1 capsule by mouth twice daily. (Patient taking differently: Take 20 mg by mouth once daily. ) metoprolol succinate ER (TOPROL XL) 25 mg 24 hr tablet Take 25 mg by mouth twice daily. atorvastatin (LIPITOR) 80 mg tablet Take 80 mg by mouth once daily. nitroglycerin sublingual (NITROQUICK) 0.4 mg SL tablet Dissolve 0.4 mg under the tongue every 5 minutes as needed. Lancets lancets Test blood sugar(s) 3 times daily. Dx: Type 2 DM - Uncontrolled E11.65 Insulin: yes Blood-Glucose Meter monitoring kit Glucose Meter of Choice - Kit - Dx: Type 2 DM - Uncontrolled. E11.65 aspirin 81 mg chewable tablet Take 1 tablet by mouth once daily. DULCOLAX, BISACODYL, ORAL Take by mouth as needed. Current Facility-Administered Medications: NaCl 0.9% iv infusion 5-30 mL/hr INTRAVENOUS CONTINUOUS Elba (Bore Mill Operator) Pfaffel Last Rate: 30 mL/hr at 07/14/18 0655 30 mL/hr at 07/14/18 0655 lidocaine 10 mg/mL (1 %) 1-2 mg injection (XYLOCAINE) 0.1-0.2 mL INTRADERMAL PRN Adin (Res) Mastracco lactated ringers infusion 5-30 mL/hr INTRAVENOUS CONTINUOUS Adin (Res) Mastracco clindamycin iv piggyback 900 mg in D5W 50 mL (CLEOCIN) 900 mg INTRAVENOUS Pre-Op Once Adin (Res) Mastracco Allergies: ALLERGIES Allergen Reactions - Augmentin [Amoxicil* Unknown 12/2015: per notes, patient tolerating pip/tazo at OSH - Codeine - Iodine Itching - Januvia [Sitaglipti* Other: See Comments TOO EXPENSIVE - Penicillins Unknown 12/2015: per notes, patient tolerating pip/tazo at OSH DOS EXAM: Adequate NPO status: Yes Anesthetic risks, benefits, alternatives, personnel and consent discussed: Yes Patient agrees to proceed: Yes Previous Anesthesia: No history of adverse event. Airway Assessment: MP 2; Neck ROM: Full ROM without neurologic symptoms; Airway Evaluation: No significant abnormalities Symptoms of Sleep Apnea: None Dentition: Teeth intact Additional Physical Exam: Lungs: Patient health status unchanged since recent history and physical. See history and physical for exam findings. Cardiac: Patient health status unchanged since recent history and physical. See history and physical for exam findings. Additional Pertinent Findings: N/A Blood Products: Not anticipated for this procedure. Anesthetic Plan: General, Standard ASA Monitors Pain Management Plan: Parenteral or Oral ASA Class: 4 Other Medical Problems: stable angina ? Status post insertion of drug-eluting stent into left anterior descending (LAD) artery Assessment: Follows Dr. Contreras, on ASA 81mg Pure hypercholesterolemia, unspecified Assessment: on rx Pulmonary embolism (HCC) Assessment: on rx Status post placement of implantable loop recorder Assessment: [facility] with [facility] Essential hypertension Assessment: controlled, on rx Hyperlipidemia LDL goal <100 Assessment: on rx Sensorineural hearing loss (SNHL) of both ears GERD (gastroesophageal reflux disease) Assessment: on rx Controlled type 2 diabetes mellitus with stage 3 chronic kidney disease, without long-term current use of insulin (HCC) Assessment: insulin dependent, last Hgb A1c, 6.5, new labs pending Anemia Assessment: labs pending, no rx Bipolar disorder (HCC) Assessment: 4. bipolar disorder--dx made by psychiatrist, but pt does not take the meds anymore. Denies depression, high energy, impulsivity.?States he feels fine Supraventricular tachycardia (HCC) Assessment: no palpitations Hx of spinal meningitis I have interviewed and examined the patient. I have reviewed the medical record and/or the pre-anesthesia evaluation, pertinent labs, and test results. Significant changes in the patient's condition since the History and Physical, not otherwise documented in primary service progress notes: No This contains updated information obtained within 48 hours of Surgery/Procedure. SIGNATURE: Justin Stephens MD PATIENT NAME: Sanchez Newman DATE: July 14, 2018 TIME: 7:06 AM CSN: [id number] [facility] BRIEF OP NOTon 07-14-2018 BRIEF OP NOT HNO ID: [id number] Author: Adin Albert Service: Podiatry Author Type: Resident Type: Brief Op Note Filed: 07/14/2018 9:10 AM Note Text: BRIEF OP NOTE LOG ID: [id number] Surgery/Procedure Date: 07/14/2018 Incision/Procedure Start Time: 7:54 AM Incision Close/Procedure End Time: 9:03 AM Surgeon(s)/Proceduralist (s) and Cellular Tower Climber(s): Surgeon(s) and Role: * Tisha Reese - Primary Adin Albert - Resident - Assisting Procedure(s): HT repair left 2nd toe Anesthesia: General Findings: see op report Estimated Blood Loss: 0 ml Specimens: None Complications: None Pre-Op/Pre-Procedure Diagnosis: HT L second toe Post-Op/Post-Procedure Diagnosis: same SIGNATURE: Adin Albert DPM PATIENT NAME: Sanchez Newman DATE: July 14, 2018 TIME: 9:10 AM PAGER/CONTACT #: [facility] HISTORY PHYSICALon 9 HISTORY PHYSICAL HNO ID: [id number] Author: Adin Albert Service: Podiatry Author Type: Resident Type: HANDP Filed: 07/14/2018 6:43 AM Note Text: ORTHOPAEDIC HISTORY AND PHYSICAL UPDATE EVALUATION DATE: 07/14/2018 EVALUATION TIME: 6:43 AM The documented History and Physical (completed in the past 30 days) has been reviewed and the patient had a confirmatory musculoskeletal exam performed. The contents of the pre-operative assesment accurately reflect the patient's condition with the following additions or revisions since the HANDP was completed: No changes. This HANDP can be found in the record dated 07/07/18. SIGNATURE: Adin Albert DPM PATIENT NAME: Sanchez Newman DATE: July 14, 2018 TIME: 6:43 AM [facility] NURSING PROGon 07-14-2018 Protein mass conc HNO ID: [id number] Author: Shaina RamosRn) YOSEPH Adkins Service: Nursing Author Type: Registered Nurse Type: Nursing Progress Note Filed: 07/14/2018 11:06 AM Note Text: 1032 Received from pacu C/o left foot pain level 5 Light diet to pt 1050 norco po one tab [facility] OPERATIVE NOon 07-14-2018 OPERATIVE NO HNO ID: [id number] Author: Tisha Reese Service: Podiatry Author Type: Physician Type: Operative Report Filed: 07/14/2018 9:50 PM Note Text: OPERATIVE/PROCEDURE REPORT LOG ID: [id number] SURGERY/PROCEDURE DATE: 07/14/2018 INCISION/PROCEDURE START TIME: 7:54 AM INCISION CLOSE/PROCEDURE END TIME: 9:03 AM SURGEON(S)/PROCEDURALIST (S) AND BOILER HOUSE INSPECTOR(S): Surgeon(s) and Role: * Tisha Reese - Primary No Additional Staff SURGERY/PROCEDURE(S): Left 2nd proximal interphalangeal joint fusion ANESTHESIA: General SURGERY/PROCEDURE DETAILS: patient is a very pleasant 72 year old male who has painful hammertoe of left 2nd toe. Patients primary complaint is pain to the proximal interphalangeal joint of left 2nd toe. Patient has tried wider shoes and padding. Despite conservative care, he continues to complain of pain. WE discussed surgical options for his hammertoe. On clinical exam, he has semi-rigid hammertoe of left 2nd toe. I discussed surgical options. Given the semi-rigid appearance, I do not feel that a flexor tenotomy would be enough for correction. I discussed options for fusion of the proximal interphalangeal joint. I discuss risks of this procedure not limited to infection of soft-tissue or bone, wound dehiscence, hematoma, nonunion of fusion site, pin site infection, loss of toe, cardiac arrest, dvt, . I discussed ancillary procedures not limited to cruz osteotomy vs plantar plate repair if needed . Patient on exam has no pain to plantar plate nor does he demonstrate any insufficiency . I discussed options for cruz osteotomy. I do not feel this is necessary. In fact, I feel any shortening of 2nd metatarsal would lead to overload of first ray. I also discussed options for amputation of toe. While patient states this could be an option, he would like to try hammertoe correction. He was informed of post-op care. He will be partial weightbearing to left heel. All questions have been answered. Consent has been signed by patient. Of note, patient has had vascular insufficiency and had procedure by Dr. Bryan Rahman and has been cleared for surgery. He does uderstand he is at risk of slow healing. Patient was transferred from pre-op holding area to operating room and placed on operating room table in supine position. Antibiotics were infused prior to incision. He was placed under general anesthesia and a local field block was administered to the left foot. An ankle tourniquet was set for 250 mm hg. The left lower extremity was prepped and draped in the usual aseptic technique. The left foot and ankle was elevated and the tourniquet was inflated. An incision beginning in left 2nd interspace extending medially over the 2nd pipj was performed. Dissection was performed thru subcutaneous tissue where all neurovascular structures were identified and retracted. Cautery was performed as necessary. The extensor tendon was then transected at the proximal interphalangeal joint. Soft-tissue release of mtpj was performed. The head of the proximal phalanx and base of middle phalanx was resected with sagittal saw. A 0.62 inch k-wire was then passed thru the middle and distal phalanx and then retrograded across proximal phalanx and mtpj. Xrays were used to confirm placement of percutaneous fixation. The toe was positioned in slight plantarflexion. The wound was then irrigated. I evaluated the extensor tendon to identify if a lengthening was necessary. Following fusion of the pipj and release of mtpj, I did not feel that lengthening was required. The tourniquet was deflated. Hemostasis was achieved. The extensor tendon was repaired with 3-0 vicryl. Subcutaneous closure was achieved with 3-0 vicryl. Skin was closed without tension with 3-0 nylon. A post-op dressing was applied consisting of betadine adaptic, 4x4 guaze, randee, compression jessica. Patient was transferred to pacu in stable condition. xrays confirmed successful hammertoe correction. He will perform partial weightbearing to left heel in surgical shoe. He will keep foot clean and dry. He will f/u later in week. If he has any questions, he will contact my office. PRE-OP/PRE-PROCEDURE DIAGNOSIS: hammertoe, left 2nd toe POST-OP/POST-PROCEDURE DIAGNOSIS: same Hammertoe left 2nd toe ESTIMATED BLOOD LOSS: less than 3 ml mls SPECIMENS: None IMPLANTABLE DEVICES: 0.62 percutaneous k-wire DRAINS: None COMPLICATIONS: None PARTICIPATION IN SURGERY/PROCEDURE: I performed the procedure with assistance. SIGNATURE: Tisha Reese DPM PATIENT NAME: Sanchez Newman DATE: July 14, 2018 TIME: 9:33 PM PAGER/CONTACT #: [facility] PLAN OF CAREon 07-14-2018 PLAN OF CARE HNO ID: [id number] Author: Nancy Rodriguez (Auto Body Worker) Service: Pharmacy Author Type: ? 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 Patient to use [facility] Bedside Delivery - YES Insurance Information as follows: 2. Insurance card on file - YES 3. Credit card for payment - YES PHARMACY BEDSIDE DELIVERY SERVICE Patient Name: Sanchez Newman The marked outpatient medications were Filled at: [place] and delivered to the patient's bedside to pharm p/u Medication List START taking these medications clindamycin 300 mg capsule Commonly known as: CLEOCIN Take 1 capsule by mouth every 8 hours for 5 days. oxyCODONE-acetaminophen 5-325 mg tablet Commonly known as: PERCOCET Take 1 tablet by mouth every 6 hours as needed for Pain for up to 7 days. X promethazine 25 mg tablet Commonly known as: PHENERGAN Take 1 tablet by mouth every 6 hours as needed for Nausea/Vomiting for up to 7 days. X CHANGE how you take these medications omeprazole 20 mg capsule Commonly known as: PriLOSEC Take 1 capsule by mouth twice daily. What changed: when to take this CONTINUE taking these medications aspirin 81 mg chewable tablet Take 1 tablet by mouth once daily. atorvastatin 80 mg tablet Commonly known as: LIPITOR * blood sugar diagnostic test strip Commonly known as: BLOOD GLUCOSE TEST Test blood sugar 1 (one) times daily. Dx: Type 2 DM - Controlled E11.9 Insulin: No, Variable Blood glucose readings * ONETOUCH ULTRA BLUE TEST STRIP test strip Generic drug: blood sugar diagnostic USE STRIP TO CHECK GLUCOSE TWICE DAILY Blood-Glucose Meter monitoring kit Glucose Meter of Choice - Kit - Dx: Type 2 DM - Uncontrolled. E11.65 DULCOLAX (BISACODYL) ORAL glimepiride 4 mg tablet Commonly known as: AMARYL Two tablets with breakfast hydrOXYzine HCl 25 mg tablet Commonly known as: ATARAX Take 1 tablet by mouth every 6 hours as needed for Itching/Rash or Anxiety. Take one tablet by mouth at bedtime as needed for sleep Lancets lancets Test blood sugar(s) 3 times daily. Dx: Type 2 DM - Uncontrolled E11.65 Insulin: yes lisinopril 10 mg tablet Commonly known as: ZESTRIL, PRINIVIL meloxicam 15 mg tablet Commonly known as: MOBIC Take 1 tablet by mouth once daily. Take with food. metFORMIN 500 mg tablet Commonly known as: GLUCOPHAGE 500mg by mouth before supper only metoprolol succinate ER 25 mg 24 hr tablet Commonly known as: TOPROL XL nitroglycerin sublingual 0.4 mg SL tablet Commonly known as: NITROQUICK tiZANidine 4 mg tablet Commonly known as: ZANAFLEX Take 1 tablet by mouth every 8 hours as needed. traZODone 100 mg tablet Commonly known as: DESYREL * This list has 2 medication(s) that are the same as other medications prescribed for you. Read the directions carefully, and ask your doctor or other care provider to review them with you. You might also be taking other medications not listed above. If you have questions about any of your other medications, talk to the person who prescribed them or your Primary Care Provider. Nancy Rodriguez (Auto Body Worker) PAGER: [id number] July 14, 2018 10:12 AM [facility] PT EDon 07-14-2018 PT ED HNO ID: [id number] Author: Miriam RamosRnRadu Kerr RN Service: ? Author Type: Registered Nurse Type: Patient Education Filed: 07/14/2018 12:39 PM Note Text: POST OP LEARNING RESPONSE INSTRUCTION PROVIDED TO: Patient and family member METHOD OF INSTRUCTION: Written instruction - handouts PATIENT / FAMILY RESPONSE: Information received as demonstrated by interest and questions FOLLOW-UP PLAN: Recommend - Recommend continued instruction and follow up as directed SUPPLEMENTAL MATERIAL: None REFERRAL (RECOMMENDATION): None Electronically Signed By: Miriam Kerr RN In Department: [facility] PT ED HNO ID: [id number] Author: Betsy RamosRn) YOSEPH Mendoza Service: ? Author Type: Registered Nurse Type: Patient Education Filed: 07/14/2018 6:38 AM Note Text: PRE OP LEARNING ASSESSMENT PROCEDURE/SURGERY: Reconstruct hammer toe 2nd left READINESS TO LEARN Interested COGNITIVE ABILITY: Alert and oriented MOTIVATION TO LEARN: Interested FAMILY SUPPORT: Unable to assess - Family not present PATIENT LEARNS BEST BY: Individual Instruction Verbal Instruction FACTORS AFFECTING LEARNING: None PHYSICAL LIMITATIONS AFFECTING LEARNING: None Electronically Signed By: Betsy Mendoza RN In Department: [facility] XR FLUOROSCOPYon 07-14-2018 XR FLUOROSCOPY * * *Final Report* * * DATE OF EXAM: Jul 14 2018 9:11AM [facility] [id number] - XR FLUOROSCOPY / PROCEDURE REASON: RECONSTRUCTION LEFT 2ND TOE * * * * Physician Interpretation * * * * INDICATION: RECONSTRUCTION LEFT 2ND TOE TECHNIQUE: Fluoroscopy with 3 views of the left toes Fluoroscopic Radiation Summary: Plane A, Air Kerma: 14.7 mGy Dose Area Product (DAP): 0.0 mGy*cmS2 Fluoro time: 0:40 min:sec FINDINGS/ IMPRESSION: Shaving of the ends of the proximal and middle phalanges of the 2nd toe at the PIP joint. Bony margins are opposing. Bridging pin. Please refer to the performing LIP's report. Field Service Poultry Technician: PSCB Transcribe Date/Time: Jul 18 2018 1:40P Dictated by : LORENZO GARCIA MD This examination was interpreted and the report reviewed and electronically signed by: LORENZO GARCIA MD on Jul 18 2018 1:41PM EST [id number] [facility] XR FOOT 3V AP/LAT/OBL LTon 0 07-14-2018 XR FOOT 3V AP/LAT/OBL LT * * *Final Repo rt* * * DATE OF EXAM: Jul 14 2018 10:05AM [facility] [id number] - XR FOOT 3V AP/LAT/OBL LT / PROCEDURE REASON: Post-operative / post-procedure assessment, symptomatic * * * * Physician Interpretation * * * * EXAMINATION: XR FOOT 3V AP/LAT/OBL LT CLINICAL HISTORY: POST OP Technique: XR FOOT 3V AP/LAT/OBL LT -- LEFT foot with 3 views on 3 images Comparison: 05/07/2018 RESULT: Patient is status post placement of orthopedic pin traversing the second metatarsophalangeal joint and the second proximal and distal interphalangeal joints. Associated soft tissue changes compatible with recent surgical procedure. The orthopedic hardware is intact. No acute fracture is appreciated. Mild degenerative changes are present at the first metatarsophalangeal joint. Vascular calcifications. IMPRESSION: Refer to the result. Field Service Poultry Technician: PSCB Transcribe Date/Time: Jul 14 2018 10:25A Dictated by : JULIEN VICK MD This examination was interpreted and the report reviewed and electronically signed by: JULIEN VICK MD on Jul 14 2018 10:29AM EST [id number] [facility] NURSING PROGon 07-09-2018 Protein mass conc HNO ID: [id number] Author: Irish (Rn) YOSEPH Sahu Service: ? Author Type: Registered Nurse Type: Nursing Progress Note Filed: 07/09/2018 11:51 AM Note Text: PACC Nurse Progress Note History AND Physical: PACC Visit Date: 07/07/18 Original HANDP Date: 07/07/18 ED visit Date: N/A Outside HANDP Scanned Date: N/A Labs Within Last 6 Months: CBC: Date 07/07/18 WNL BMP/CMP: Date 07/07/18 BUN/creat. 26 and 1.31--similar to previous results in EPIC HBA1C: Date 07/07/18 6.4 (known diabetic) Imaging Within Last 12 Months: See chart Cardiac Testing: EKG in last 12 Months: Yes: Date: 05/15/18, Comment: marked sinus galileo, early repolarization, 48bpm--result [facility] in [facility] Stress Test Date: 6/6/17 , Comment: scanned in EPIC Risk Assessment: N/A Anesthesia Review: N/A Narrative: N/A Pre-op Considerations: Known diabetic Chart Check: COMPLETED Irish Sahu RN July 09, 2018 11:44 AM [facility] HOSPon 06-12-2018 HOSP Patient:Mark Newman MRN: Height:5' 11(1.803 m) Weight:162 lb (73.483 kg) Outpatient Medications as of 07/14/18: traZODone (DESYREL) 100 mg tablet lisinopril (ZESTRIL, PRINIVIL) 10 mg tablet meloxicam (MOBIC) 15 mg tablet glimepiride (AMARYL) 4 mg tablet metFORMIN (GLUCOPHAGE) 500 mg tablet tiZANidine (ZANAFLEX) 4 mg tablet ONETOUCH ULTRA BLUE TEST STRIP test strip blood sugar diagnostic (BLOOD GLUCOSE TEST) test strip hydrOXYzine HCl (ATARAX) 25 mg tablet omeprazole (PRILOSEC) 20 mg capsule metoprolol succinate ER (TOPROL XL) 25 mg 24 hr tablet atorvastatin (LIPITOR) 80 mg tablet nitroglycerin sublingual (NITROQUICK) 0.4 mg SL tablet Lancets lancets Blood-Glucose Meter monitoring kit aspirin 81 mg chewable tablet DULCOLAX, BISACODYL, ORAL Admission/Clinic Administered Medications as of 07/14/18: NaCl 0.9% iv infusion lidocaine 10 mg/mL (1 %) 1-2 mg injection (XYLOCAINE) lactated ringers infusion clindamycin iv piggyback 900 mg in D5W 50 mL (CLEOCIN) Problem List: Atherosclerosis of [place] coronary artery [I25.10] 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] Essential hypertension [I10] GERD (gastroesophageal reflux disease) [K21.9] Flexor tenosynovitis of finger [M65.9] Chronic left shoulder pain [M25.512, G89.29] Hyperlipidemia LDL goal <100 [E78.5] Diverticulitis [K57.92] Status post insertion of drug-eluting stent into left anterior descending (LAD) artery [Z95.5] Sensorineural hearing loss (SNHL) of both ears [H90.3] Restless leg syndrome [G25.81] Controlled type 2 diabetes mellitus with stage 3 chronic kidney disease, without long-term current use of insulin (HCC) [E11.22, N18.3] Anemia [D64.9] Diaphragmatic hernia without obstruction or gangrene [K44.9] 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 of 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 [Z79.82] Manic episode, unspecified (HCC) [F30.9] Old myocardial infarction [I25.2] Personal history of pulmonary embolism [Z86.711] Polyp of stomach and duodenum [K31.7] Presence of coronary angioplasty implant and graft [Z95.5] Pulmonary embolism (HCC) [I26.99] Pure hypercholesterolemia, unspecified [E78.00] Supraventricular tachycardia (HCC) [I47.1] Hearing loss [H91.90] Ventricular tachycardia (HCC) [I47.2] Status post placement of implantable loop recorder [Z95.818] Bipolar disorder (HCC) [F31.9] Allergies: Augmentin [Amoxicillin-Pot Clavulanate] Codeine Iodine Januvia [Sitagliptin] Penicillins Date Verified: 07/14/18 Lab Values Lab Value Units Date High Low POTA* 4.6 mmol/L 07/07/2018 5.1 3.7 KAELA* 42.1 % 07/07/2018 51.0 39.0 Progress Notes ([facility]): Maria Luisa Loredo MA, CCC-A 07/10/2018 5:03 PM Signed HEARING AID CHECK RIGHT: EDDIE REDD [id number] SN: [id number] Earmold/Tubing/Fur Finisher Tailor/ Dome: medium closed LEFT: CROS B13 SN: [id number] Earmold/Tubing/Fur Finisher Tailor/ Dome: SMALL OPEN Right warranty AND L/D expires: 04-09-2019 Left warranty AND L/D expires: 04-09-18 Sanchez was seen today for a hearing aid check. Noted that he takes out his aids at [employer] with the music. Decided to go to a second program for music at a softer gain. Talked about the VC then remembered oit is missing which was a long time ago and when I called they said it had to be sent in and he didn't want to send it in. He wants to send it in now, he does not want a loaner he will just wait. Recommendations Return in two weeks, He paid 50.00 today. 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 The other lab results look fine. We will discuss in more detail at the upcoming appointment. Maris Rahman III, , FAAFP Normal [facility] Influenza virus A and B and SARS-CoV-2 (COVID-19) Ag panel - Upper respiratory specim SARS-CoV-2 (COVID-19) RNA JAGDEEP+probe Ql (Resp) [facility] Work Phone: No Panel Information SARS-CoV-2 & FLU Antigen (Rapid) [facility] Work Phone: Vital Signs Date Time Vital Sign Value Performing Clinician Facility 12-21-2024 08:22-0400 Body height 180.[address] Svetlana Csaas MD Work Phone: [facility] 12-21-2024 08:22-0400 Body mass index (BMI) [Ratio] 23.1 kg/m2 Dr. Svetlana Casas MD Work Phone: [facility] 12-21-2024 08:22-0400 Body weight 75.[address] Svetlana Casas MD Work Phone: [facility] 12-21-2024 08:22-0400 Diastolic blood pressure 80 mm[Hg] Dr. Svetlana Casas MD Work Phone: [facility] 12-21-2024 08:22-0400 Heart rate 71 /min Dr. Svetlana Casas MD Work Phone: [facility] 12-21-2024 08:22-0400 Respiratory rate 15 /min Dr. Svetlana Casas MD Work Phone: [facility] 12-21-2024 08:22-0400 SaO2% (BldA) [Mass fraction] 98 % Dr. Svetlana Casas MD Work Phone: [facility] 12-21-2024 08:22-0400 Systolic blood pressure 144 mm[Hg] Dr. Svetlana Casas MD Work Phone: [facility] 12-17-2024 14:13-0400 Body height 180.[address] Svetlana Casas MD Work Phone: [facility] 12-17-2024 14:13-0400 Body mass index (BMI) [Ratio] 23.4 kg/m2 Dr. Svetlana Casas MD Work Phone: [facility] 12-17-2024 14:13-0400 Body temperature 98.6 [degF] Dr. Svetlana Casas MD Work Phone: [facility] 12-17-2024 14:13-0400 Body weight 76.[address] Svetlana Casas MD Work Phone: [facility] 12-17-2024 14:13-0400 Diastolic blood pressure 70 mm[Hg] Dr. Svetlana Casas MD Work Phone: [facility] 12-17-2024 14:13-0400 Heart rate 52 /min Dr. Svetlana Casas MD Work Phone: [facility] 12-17-2024 14:13-0400 Respiratory rate 16 /min Dr. Svetlana Casas MD Work Phone: [facility] 12-17-2024 14:13-0400 SaO2% (BldA) [Mass fraction] 98 % Dr. Svetlana Casas MD Work Phone: [facility] 12-17-2024 14:13-0400 Systolic blood pressure 112 mm[Hg] Dr. Svetlana Casas MD Work Phone: [facility] 10-16-2024 13:59-0400 Body height 180.[address] Svetlana Casas MD Work Phone: [facility] 10-16-2024 13:59-0400 Body mass index (BMI) [Ratio] 23.4 kg/m2 Dr. Svetlana Casas MD Work Phone: [facility] 10-16-2024 13:59-0400 Body weight 76.[address] Svetlana Casas MD Work Phone: [facility] 10-16-2024 13:59-0400 Diastolic blood pressure 82 mm[Hg] Dr. Svetlana Casas MD Work Phone: [facility] 10-16-2024 13:59-0400 Heart rate 71 /min Dr. Svetlana Casas MD Work Phone: [facility] 10-16-2024 13:59-0400 Respiratory rate 18 /min Dr. Svetlana Casas MD Work Phone: [facility] 10-16-2024 13:59-0400 SaO2% (BldA) [Mass fraction] 95 % Dr. Svetlana Casas MD Work Phone: [facility] 10-16-2024 13:59-0400 Systolic blood pressure 144 mm[Hg] Dr. Svetlana Casas MD Work Phone: [facility] 09-22-2024 10:25-0400 Body temperature 97.8 [degF] Dr. Svetlana Casas MD Work Phone: [facility] 09-22-2024 10:25-0400 Body weight 75.[address] Svetlana Casas MD Work Phone: [facility] 09-22-2024 10:25-0400 Diastolic blood pressure 69 mm[Hg] Dr. Svetlana Casas MD Work Phone: [facility] 09-22-2024 10:25-0400 Heart rate 78 /min Dr. Svetlana Casas MD Work Phone: [facility] 05-27-2025 10:25-0400 Respiratory rate 17 /min Dr. Svetlana Casas MD Work Phone: [facility] 09-22-2024 10:25-0400 SaO2% (BldA) [Mass fraction] 98 % Dr. Svetlana Casas MD Work Phone: [facility] 09-22-2024 10:25-0400 Systolic blood pressure 130 mm[Hg] Dr. Svetlana Casas MD Work Phone: [facility] 09-16-2024 16:04-0400 Body height 180.[address] Svetlana Casas MD Work Phone: [facility] 09-16-2024 16:04-0400 Body mass index (BMI) [Ratio] 24 kg/m2 Dr. Svetlana Casas MD Work Phone: [facility] 09-16-2024 16:04-0400 Body temperature 97.6 [degF] Dr. Svetlana Casas MD Work Phone: [facility] 09-16-2024 16:04-0400 Body weight 78.[address] Svetlana Casas MD Work Phone: [facility] 09-16-2024 16:04-0400 Diastolic blood pressure 74 mm[Hg] Dr. Svetlana Casas MD Work Phone: [facility] 09-16-2024 16:04-0400 Heart rate 78 /min Dr. Svetlana Casas MD Work Phone: [facility] 09-16-2024 16:04-0400 Respiratory rate 18 /min Dr. Svetlana Casas MD Work Phone: [facility] 09-16-2024 16:04-0400 SaO2% (BldA) [Mass fraction] 96 % Dr. Svetlana Casas MD Work Phone: [facility] 09-16-2024 16:04-0400 Systolic blood pressure 130 mm[Hg] Dr. Svetlana Casas MD Work Phone: [facility] 06-25-2024 09:02-0500 Body height 180.[address] Svetlana Casas MD Work Phone: [facility] 06-25-2024 09:02-0500 Body mass index (BMI) [Ratio] 24.1 kg/m2 Dr. Svetlana Casas MD Work Phone: [facility] 06-25-2024 09:02-0500 Body temperature 97.8 [degF] Dr. Svetlana Casas MD Work Phone: [facility] 06-25-2024 09:02-0500 Body weight 78.[address] Svetlana Casas MD Work Phone: [facility] 06-25-2024 09:02-0500 Diastolic blood pressure 68 mm[Hg] Dr. Svetlana Casas MD Work Phone: [facility] 06-25-2024 09:02-0500 Heart rate 63 /min Dr. Svetlana Casas MD Work Phone: [facility] 06-25-2024 09:02-0500 Respiratory rate 16 /min Dr. Svetlana Casas MD Work Phone: [facility] 06-25-2024 09:02-0500 SaO2% (BldA) [Mass fraction] 99 % Dr. Svetlana Casas MD Work Phone: [facility] 06-25-2024 09:02-0500 Systolic blood pressure 118 mm[Hg] Dr. Svetlana Casas MD Work Phone: [facility] 06-10-2024 16:03-0500 Body mass index (BMI) [Ratio] 25 kg/m2 Dr. Svetlana Casas MD Work Phone: [facility] 06-10-2024 16:03-0500 Body temperature 96.3 [degF] Dr. Svetlana Casas MD Work Phone: [facility] 06-10-2024 16:03-0500 Body weight 81.[address] Svetlana Casas MD Work Phone: [facility] 06-10-2024 16:03-0500 Diastolic blood pressure 78 mm[Hg] Dr. Svetlana Casas MD Work Phone: [facility] 06-10-2024 16:03-0500 Heart rate 73 /min Dr. Svetlana Casas MD Work Phone: [facility] 06-10-2024 16:03-0500 Respiratory rate 16 /min Dr. Svetlana Casas MD Work Phone: [facility] 06-10-2024 16:03-0500 SaO2% (BldA) [Mass fraction] 94 % Dr. Svetlana Casas MD Work Phone: [facility] 06-10-2024 16:03-0500 Systolic blood pressure 128 mm[Hg] Dr. Svetlana Casas MD Work Phone: [facility] 08-21-2023 11:04-0400 Body height 180.[address] Svetlana Casas Work Phone: [facility] 08-21-2023 11:04-0400 Body mass index (BMI) [Ratio] 24.5 kg/m2 Dr. Svetlana Casas Work Phone: [facility] 08-21-2023 11:04-0400 Body temperature 97.2 [degF] Dr. Svetlana Casas Work Phone: [facility] 08-21-2023 11:04-0400 Body weight [address] Svetlana Casas Work Phone: [facility] 08-21-2023 11:04-0400 Diastolic blood pressure 62 mm[Hg] Dr. Svetlana Casas Work Phone: [facility] 08-21-2023 11:04-0400 Heart rate 75 /min Dr. Svetlana Casas Work Phone: [facility] 08-21-2023 11:04-0400 Respiratory rate 16 /min Dr. Svetlana Casas Work Phone: [facility] 08-21-2023 11:04-0400 SaO2% (BldA) [Mass fraction] 92 % Dr. Svetlana Casas Work Phone: [facility] 08-21-2023 11:04-0400 Systolic blood pressure 122 mm[Hg] Dr. Svetlana Casas Work Phone: [facility] 07-12-2023 08:38-0400 Body mass index (BMI) [Ratio] 25 kg/m2 Dr. Svetlana Casas Work Phone: [facility] 07-12-2023 08:38-0400 Body temperature 97.9 [degF] Dr. Svetlana Casas Work Phone: [facility] 07-12-2023 08:38-0400 Body weight 81.[address] Svetlana Casas Work Phone: [facility] 07-12-2023 08:38-0400 Diastolic blood pressure 68 mm[Hg] Dr. Svetlana Casas Work Phone: [facility] 07-12-2023 08:38-0400 Heart rate 92 /min Dr. Svetlana Casas Work Phone: [facility] 07-12-2023 08:38-0400 Respiratory rate 16 /min Dr. Svetlana Casas Work Phone: [facility] 07-12-2023 08:38-0400 SaO2% (BldA) [Mass fraction] 99 % Dr. Svetlana Casas Work Phone: [facility] 07-12-2023 08:38-0400 Systolic blood pressure 116 mm[Hg] Dr. Svetlana Casas Work Phone: [facility] 07-01-2023 12:55-0500 Body mass index (BMI) [Ratio] 25 kg/m2 Dr. Svetlana Casas Work Phone: [facility] 07-01-2023 12:55-0500 Body temperature 97.3 [degF] Dr. Svetlana Casas Work Phone: [facility] 07-01-2023 12:55-0500 Body weight 81.[address] Svetlana Casas Work Phone: [facility] 07-01-2023 12:55-0500 Diastolic blood pressure 72 mm[Hg] Dr. Svetlana Casas Work Phone: [facility] 07-01-2023 12:55-0500 Heart rate 93 /min Dr. Svetlana Casas Work Phone: [facility] 07-01-2023 12:55-0500 Respiratory rate 16 /min Dr. Svetlana Casas Work Phone: [facility] 07-01-2023 12:55-0500 SaO2% (BldA) [Mass fraction] 98 % Dr. Svetlana Casas Work Phone: [facility] 07-01-2023 12:55-0500 Systolic blood pressure 142 mm[Hg] Dr. Svetlana Casas Work Phone: [facility] 07-01-2023 09:59-0500 Body mass index (BMI) [Ratio] 25.2 kg/m2 Dr. Svetlana Casas Work Phone: [facility] 07-01-2023 09:59-0500 Body weight 82.[address] Svetlana Casas Work Phone: [facility] 07-01-2023 09:59-0500 Diastolic blood pressure 77 mm[Hg] Dr. Svetlana Casas Work Phone: [facility] 07-01-2023 09:59-0500 Heart rate 88 /min Dr. Svetlana Casas Work Phone: [facility] 07-01-2023 09:59-0500 Respiratory rate 20 /min Dr. Svetlana Casas Work Phone: [facility] 07-01-2023 09:59-0500 SaO2% (BldA) [Mass fraction] 94 % Dr. Svetlana Casas Work Phone: [facility] 07-01-2023 09:59-0500 Systolic blood pressure 131 mm[Hg] Dr. Svetlana Casas Work Phone: [facility] 06-29-2023 16:22-0500 Body temperature 98.3 [degF] Dr. Svetlana Csaas Work Phone: [facility] 06-29-2023 16:22-0500 Diastolic blood pressure 81 mm[Hg] Dr. Svetlana Casas Work Phone: [facility] 06-29-2023 16:22-0500 Heart rate 81 /min Dr. Svetlana Casas Work Phone: [facility] 06-29-2023 16:22-0500 Respiratory rate 16 /min Dr. Svetlana Casas Work Phone: [facility] 06-29-2023 16:22-0500 SaO2% (BldA) [Mass fraction] 98 % Dr. Svetlana Casas Work Phone: [facility] 06-29-2023 16:22-0500 Systolic blood pressure 135 mm[Hg] Dr. Svetlana Casas Work Phone: [facility] 06-29-2023 14:14-0500 Body height 180.[address] Svetlana Casas Work Phone: [facility] 06-29-2023 14:14-0500 Body mass index (BMI) [Ratio] 25.2 kg/m2 Dr. Svetlana Casas Work Phone: [facility] 06-29-2023 14:14-0500 Body weight 81.[address] Svetlana Casas Work Phone: [facility] 05-22-2023 09:01-0500 Body height 180.[address] Svetlana Casas Work Phone: [facility] 05-22-2023 09:01-0500 Body mass index (BMI) [Ratio] 24.8 kg/m2 Dr. Svetlana Casas Work Phone: [facility] 05-22-2023 09:01-0500 Body temperature 98.2 [degF] Dr. Svetlana Casas Work Phone: [facility] 05-22-2023 09:01-0500 Body weight 80.[address] Svetlana Casas Work Phone: [facility] 05-22-2023 09:01-0500 Diastolic blood pressure 80 mm[Hg] Dr. Svetlana Casas Work Phone: [facility] 05-22-2023 09:01-0500 Heart rate 72 /min Dr. Svetlana Casas Work Phone: [facility] 05-22-2023 09:01-0500 SaO2% (BldA) [Mass fraction] 98 % Dr. Svetlana Casas Work Phone: [facility] 05-22-2023 09:01-0500 Systolic blood pressure 128 mm[Hg] Dr. Svetlana Casas Work Phone: [facility] 05-02-2023 10:53-0500 Body height 179 cm Franck Stewart MD Work Phone: [facility] 05-02-2023 10:53-0500 Body mass index (BMI) [Ratio] 26.95 kg/m2 Franck Stewart MD Work Phone: [facility] 05-02-2023 10:53-0500 Body temperature 97.2 [degF] Franck Stewart MD Work Phone: [facility] 05-02-2023 10:53-0500 Body weight 86.36 kg Franck Stewart MD Work Phone: [facility] 05-02-2023 10:53-0500 Diastolic blood pressure 57 mm[Hg] Franck Stewart MD Work Phone: [facility] 05-02-2023 10:53-0500 Heart rate 95 /min Franck Stewart MD Work Phone: [facility] 05-02-2023 10:53-0500 Respiratory rate 18 /min Franck Stewart MD Work Phone: [facility] 05-02-2023 10:53-0500 SaO2% (BldA) [Mass fraction] 98 % Franck Stewart MD Work Phone: [facility] Comment on above: On room air 05-02-2023 10:53-0500 Systolic blood pressure 120 mm[Hg] Franck Stewart MD Work Phone: [facility] 02-18-2023 08:58-0400 Body height 180.[address] Svetlana Casas Work Phone: [facility] 02-18-2023 08:58-0400 Body mass index (BMI) [Ratio] 23.3 kg/m2 Dr. Svetlana Casas Work Phone: [facility] 02-18-2023 08:58-0400 Body temperature 98.4 [degF] Dr. Svetlana Casas Work Phone: [facility] 02-18-2023 08:58-0400 Body weight 75.[address] Svetlana Casas Work Phone: [facility] 02-18-2023 08:58-0400 Diastolic blood pressure 80 mm[Hg] Dr. Svetlana Casas Work Phone: [facility] 02-18-2023 08:58-0400 Heart rate 82 /min Dr. Svetlana Casas Work Phone: [facility] 02-18-2023 08:58-0400 Respiratory rate 14 /min Dr. Svetlana Casas Work Phone: [facility] 02-18-2023 08:58-0400 SaO2% (BldA) [Mass fraction] 99 % Dr. Svetlana Casas Work Phone: [facility] 02-18-2023 08:58-0400 Systolic blood pressure 132 mm[Hg] Dr. Svetlana Casas Work Phone: [facility] 12-24-2022 09:16-0400 Body height 180.[address] Svetlana Casas Work Phone: [facility] 12-24-2022 09:16-0400 Body mass index (BMI) [Ratio] 24.4 kg/m2 Dr. Svetlana Casas Work Phone: [facility] 12-24-2022 09:16-0400 Body temperature 97 [degF] Dr. Svetlana Casas Work Phone: [facility] 12-24-2022 09:16-0400 Body weight 79.[address] Svetlana Casas Work Phone: [facility] 12-24-2022 09:16-0400 Diastolic blood pressure 81 mm[Hg] Dr. Svetlana Casas Work Phone: [facility] 12-24-2022 09:16-0400 Heart rate 84 /min Dr. Svetlana Casas Work Phone: [facility] 12-24-2022 09:16-0400 Respiratory rate 18 /min Dr. Svetlana Casas Work Phone: [facility] 12-24-2022 09:16-0400 SaO2% (BldA) [Mass fraction] 97 % Dr. Svetlana Casas Work Phone: [facility] 12-24-2022 09:16-0400 Systolic blood pressure 144 mm[Hg] Dr. Svetlana Casas Work Phone: [facility] 11-16-2022 07:48-0400 Body height 180.[address] Svetlana Casas Work Phone: [facility] 11-16-2022 07:48-0400 Body mass index (BMI) [Ratio] 24.1 kg/m2 Dr. Svetlana Casas Work Phone: [facility] 11-16-2022 07:48-0400 Body temperature 96 [degF] Dr. Svetlana Casas Work Phone: [facility] 11-16-2022 07:48-0400 Body weight 78.[address] Svetlana Casas Work Phone: [facility] 11-16-2022 07:48-0400 Diastolic blood pressure 68 mm[Hg] Dr. Svetlana Casas Work Phone: [facility] 11-16-2022 07:48-0400 Heart rate 78 /min Dr. Svetlana Casas Work Phone: [facility] 11-16-2022 07:48-0400 Respiratory rate 18 /min Dr. Svetlana Casas Work Phone: [facility] 11-16-2022 07:48-0400 SaO2% (BldA) [Mass fraction] 99 % Dr. Svetlana Casas Work Phone: [facility] 11-16-2022 07:48-0400 Systolic blood pressure 138 mm[Hg] Dr. Svetlana Casas Work Phone: [facility] 10-25-2022 13:59-0400 Body mass index (BMI) [Ratio] 24.62 kg/m2 Franck Stewart MD Work Phone: [facility] 10-25-2022 13:59-0400 Body temperature 97.59 [degF] Franck Stewart MD Work Phone: [facility] 10-25-2022 13:59-0400 Body weight 80.06 kg Franck Stewart MD Work Phone: [facility] 10-25-2022 13:59-0400 Diastolic blood pressure 64 mm[Hg] Franck Stewart MD Work Phone: [facility] 10-25-2022 13:59-0400 Heart rate 105 /min Franck Stewart MD Work Phone: [facility] 10-25-2022 13:59-0400 Respiratory rate 16 /min Franck Stewart MD Work Phone: [facility] 10-25-2022 13:59-0400 SaO2% (BldA) [Mass fraction] 95 % Franck Stewart MD Work Phone: [facility] 10-25-2022 13:59-0400 Systolic blood pressure 119 mm[Hg] Franck Stewart MD Work Phone: [facility] 10-19-2022 10:37-0400 Body mass index (BMI) [Ratio] 23.8 kg/m2 Dr. Svetlana Casas Work Phone: [facility] 10-19-2022 10:37-0400 Body temperature 97.4 [degF] Dr. Svetlana Casas Work Phone: [facility] 10-19-2022 10:37-0400 Body weight 77.[address] Svetlana Casas Work Phone: [facility] 10-19-2022 10:37-0400 Diastolic blood pressure 70 mm[Hg] Dr. Svetlana Casas Work Phone: [facility] 10-19-2022 10:37-0400 Heart rate 93 /min Dr. Svetlana Casas Work Phone: [facility] 10-19-2022 10:37-0400 Respiratory rate 17 /min Dr. Svetlana Casas Work Phone: [facility] 10-19-2022 10:37-0400 SaO2% (BldA) [Mass fraction] 98 % Dr. Svetlana Casas Work Phone: [facility] 10-19-2022 10:37-0400 Systolic blood pressure 154 mm[Hg] Dr. Svetlana Casas Work Phone: [facility] 10-04-2022 10:05-0400 Body mass index (BMI) [Ratio] 24 kg/m2 Dr. Svetlana Casas Work Phone: [facility] 10-04-2022 10:05-0400 Body weight 78.[address] Svetlana Casas Work Phone: [facility] 10-04-2022 10:05-0400 Diastolic blood pressure 72 mm[Hg] Dr. Svetlana Casas Work Phone: [facility] 10-04-2022 10:05-0400 Heart rate 92 /min Dr. Svetlana Casas Work Phone: [facility] 10-04-2022 10:05-0400 Respiratory rate 18 /min Dr. Svetlana Casas Work Phone: [facility] 10-04-2022 10:05-0400 SaO2% (BldA) [Mass fraction] 100 % Dr. Svetlana Casas Work Phone: [facility] 10-04-2022 10:05-0400 Systolic blood pressure 139 mm[Hg] Dr. Svetlana Casas Work Phone: [facility] 09-12-2022 07:52-0400 Body mass index (BMI) [Ratio] 25.2 kg/m2 Dr. Svetlana Casas Work Phone: [facility] 09-12-2022 07:52-0400 Body temperature 96.4 [degF] Dr. Svetlana Casas Work Phone: [facility] 09-12-2022 07:52-0400 Body weight 81.[address] Svetlana Casas Work Phone: [facility] 09-12-2022 07:52-0400 Diastolic blood pressure 72 mm[Hg] Dr. Svetlana Casas Work Phone: [facility] 09-12-2022 07:52-0400 Heart rate 64 /min Dr. Svetlana Casas Work Phone: [facility] 09-12-2022 07:52-0400 Respiratory rate 18 /min Dr. Svetlana Casas Work Phone: [facility] 09-12-2022 07:52-0400 SaO2% (BldA) [Mass fraction] 97 % Dr. Svetlana Casas Work Phone: [facility] 09-12-2022 07:52-0400 Systolic blood pressure 132 mm[Hg] Dr. Svetlana Casas Work Phone: [facility] 08-15-2022 08:37-0400 Body mass index (BMI) [Ratio] 24.7 kg/m2 Dr. Svetlana Casas Work Phone: [facility] 08-15-2022 08:37-0400 Body temperature 96.8 [degF] Dr. Svetlana Casas Work Phone: [facility] 08-15-2022 08:37-0400 Body weight 80.[address] Svetlana Casas Work Phone: [facility] 08-15-2022 08:37-0400 Diastolic blood pressure 126 mm[Hg] Dr. Svetlana Casas Work Phone: [facility] 08-15-2022 08:37-0400 Heart rate 62 /min Dr. Svetlana Casas Work Phone: [facility] 08-15-2022 08:37-0400 Respiratory rate 18 /min Dr. Svetlana Casas Work Phone: [facility] 08-15-2022 08:37-0400 SaO2% (BldA) [Mass fraction] 100 % Dr. Svetlana Casas Work Phone: [facility] 08-15-2022 08:37-0400 Systolic blood pressure 196 mm[Hg] Dr. Svetlana Casas Work Phone: [facility] 07-06-2022 16:50-0500 Heart rate 67 /min Amado Murray DO Work Phone: [facility] 07-06-2022 16:50-0500 Respiratory rate 20 /min Amado Murray DO Work Phone: [facility] 07-06-2022 16:50-0500 SaO2% (BldA) [Mass fraction] 98 % Amado Murray DO Work Phone: [facility] 07-06-2022 16:45-0500 Diastolic blood pressure 75 mm[Hg] Amado Murray DO Work Phone: [facility] 07-06-2022 16:45-0500 Systolic blood pressure 160 mm[Hg] Amado Murray DO Work Phone: [facility] 07-06-2022 16:22-0500 Body temperature 97.2 [degF] Amado Murray DO Work Phone: [facility] 06-28-2022 12:09-0500 Body height 180 cm Franck Stewart MD Work Phone: [facility] 06-28-2022 12:09-0500 Body mass index (BMI) [Ratio] 25.13 kg/m2 Franck Stewart MD Work Phone: [facility] 06-28-2022 12:09-0500 Body temperature 98.1 [degF] Franck Stewart MD Work Phone: [facility] 06-28-2022 12:09-0500 Body weight 81.42 kg Franck Stewart MD Work Phone: [facility] Comment on above: patient refused take shoes off 06-28-2022 12:09-0500 Diastolic blood pressure 79 mm[Hg] Franck Stewart MD Work Phone: [facility] 06-28-2022 12:09-0500 Heart rate 87 /min Franck Stewart MD Work Phone: [facility] 06-28-2022 12:09-0500 Respiratory rate 20 /min Franck Stewart MD Work Phone: [facility] 06-28-2022 12:09-0500 SaO2% (BldA) [Mass fraction] 95 % Franck Stewart MD Work Phone: [facility] 06-28-2022 12:09-0500 Systolic blood pressure 154 mm[Hg] Franck Stewart MD Work Phone: [facility] 05-16-2022 08:59-0500 Body height 180.[address] Svetlana Casas Work Phone: [facility] 05-16-2022 08:59-0500 Body mass index (BMI) [Ratio] 23.6 kg/m2 Dr. Svetlana Casas Work Phone: [facility] 05-16-2022 08:59-0500 Body temperature 97.8 [degF] Dr. Svetlana Casas Work Phone: [facility] 05-16-2022 08:59-0500 Body weight 76.[address] Svetlana Casas Work Phone: [facility] 05-16-2022 08:59-0500 Diastolic blood pressure 70 mm[Hg] Dr. Svetlana Casas Work Phone: [facility] 05-16-2022 08:59-0500 Heart rate 90 /min Dr. Svetlana Casas Work Phone: [facility] 05-16-2022 08:59-0500 Respiratory rate 16 /min Dr. Svetlana Casas Work Phone: [facility] 05-16-2022 08:59-0500 SaO2% (BldA) [Mass fraction] 98 % Dr. Svetlana Casas Work Phone: [facility] 05-16-2022 08:59-0500 Systolic blood pressure 110 mm[Hg] Dr. Svetlana Casas Work Phone: [facility] 05-15-2022 15:23-0500 Body mass index (BMI) [Ratio] 23.7 kg/m2 Dr. Svetlana Casas Work Phone: [facility] 05-15-2022 15:23-0500 Body temperature 97.4 [degF] Dr. Svetlana Casas Work Phone: [facility] 05-15-2022 15:23-0500 Body weight 77.[address] Svetlana Casas Work Phone: [facility] 05-15-2022 15:23-0500 Diastolic blood pressure 82 mm[Hg] Dr. Svetlana Casas Work Phone: [facility] 05-15-2022 15:23-0500 Heart rate 79 /min Dr. Svetlana Casas Work Phone: [facility] 05-15-2022 15:23-0500 Respiratory rate 16 /min Dr. Svetlana Casas Work Phone: [facility] 05-15-2022 15:23-0500 SaO2% (BldA) [Mass fraction] 98 % Dr. Svetlana Casas Work Phone: [facility] 05-15-2022 15:23-0500 Systolic blood pressure 133 mm[Hg] Dr. Svetlana Casas Work Phone: [facility] 05-02-2022 13:52-0500 Body mass index (BMI) [Ratio] 24.1 kg/m2 Dr. Svetlana Casas Work Phone: [facility] 05-02-2022 13:52-0500 Body weight 78.[address] Svetlana Casas Work Phone: [facility] 05-02-2022 13:52-0500 Diastolic blood pressure 70 mm[Hg] Dr. Svetlana Casas Work Phone: [facility] 05-02-2022 13:52-0500 Heart rate 84 /min Dr. Svetlana Casas Work Phone: [facility] 05-02-2022 13:52-0500 Respiratory rate 18 /min Dr. Svetlana Casas Work Phone: [facility] 05-02-2022 13:52-0500 Systolic blood pressure 140 mm[Hg] Dr. Svetlana Casas Work Phone: [facility] 04-09-2022 09:24-0500 Diastolic blood pressure 62 mm[Hg] Dr. Svetlana Casas Work Phone: [facility] 04-09-2022 09:24-0500 Systolic blood pressure 98 mm[Hg] Dr. Svetlana Casas Work Phone: [facility] 04-05-2022 14:35-0500 Body temperature 96.6 [degF] Dr. Svetlana Casas Work Phone: [facility] 04-05-2022 14:35-0500 Diastolic blood pressure 56 mm[Hg] Dr. Svetlana Casas Work Phone: [facility] 04-05-2022 14:35-0500 Heart rate 60 /min Dr. Svetlana Casas Work Phone: [facility] 04-05-2022 14:35-0500 Respiratory rate 18 /min Dr. Svetlana Casas Work Phone: [facility] 04-05-2022 14:35-0500 Systolic blood pressure 96 mm[Hg] Dr. Svetlana Casas Work Phone: [facility] 03-25-2022 16:00-0500 Diastolic blood pressure 96 mm[Hg] Dr. Svetlana Casas Work Phone: [facility] 03-25-2022 16:00-0500 Systolic blood pressure 168 mm[Hg] Dr. Svetlana Casas Work Phone: [facility] 03-25-2022 13:45-0500 Body temperature 98.2 [degF] Dr. Svetlana Casas Work Phone: [facility] 03-25-2022 13:45-0500 Heart rate 82 /min Dr. Svetlana Casas Work Phone: [facility] 03-25-2022 13:45-0500 Respiratory rate 18 /min Dr. Svetlana Casas Work Phone: [facility] 03-25-2022 13:45-0500 SaO2% (BldA) [Mass fraction] 95 % Dr. Svetlana Casas Work Phone: [facility] 03-25-2022 04:27-0500 Body height 180.[address] Svetlana Casas Work Phone: [facility] Work Phone: 03-25-2022 04:27-0500 Body mass index (BMI) [Ratio] 24 kg/m2 Dr. Svetlana Casas Work Phone: [facility] 03-25-2022 04:27-0500 Body weight 78.[address] Svetlana Casas Work Phone: [facility] 03-25-2022 03:13-0500 Body temperature 98.9 [degF] Dr. Svetlana Casas Work Phone: [facility] Work Phone: 03-25-2022 03:13-0500 Diastolic blood pressure 82 mm[Hg] Dr. Svetlana Casas Work Phone: [facility] Work Phone: 03-25-2022 03:13-0500 Heart rate 95 /min Dr. Svetlana Casas Work Phone: [facility] Work Phone: 03-25-2022 03:13-0500 Inhaled oxygen flow rate 2 L/min Dr. Svetlana Casas Work Phone: [facility] 03-25-2022 03:13-0500 Respiratory rate 16 /min Dr. Svetlana Casas Work Phone: [facility] Work Phone: 03-25-2022 03:13-0500 SaO2% (BldA) [Mass fraction] 97 % Dr. Svetlana Casas Work Phone: [facility] Work Phone: 03-25-2022 03:13-0500 Systolic blood pressure 162 mm[Hg] Dr. Svetlana Casas Work Phone: [facility] Work Phone: 03-24-2022 18:35-0500 Body height 180.[address] Svetlana Casas Work Phone: [facility] Work Phone: 03-24-2022 18:35-0500 Body mass index (BMI) [Ratio] 23.7 kg/m2 Dr. Svetlana Casas Work Phone: [facility] Work Phone: 03-24-2022 18:35-0500 Body weight 77.[address] Svetlana Casas Work Phone: [facility] Work Phone: 02-09-2022 10:24-0400 Body temperature 98.1 [degF] Dr. Svetlana Casas Work Phone: [facility] 02-09-2022 10:24-0400 Body weight 77.[address] Svetlana Caass Work Phone: [facility] 02-09-2022 10:24-0400 Diastolic blood pressure 84 mm[Hg] Dr. Svetlana Casas Work Phone: [facility] 02-09-2022 10:24-0400 Heart rate 80 /min Dr. Svetlana Casas Work Phone: [facility] 02-09-2022 10:24-0400 Respiratory rate 16 /min Dr. Svetlana Casas Work Phone: [facility] 02-09-2022 10:24-0400 SaO2% (BldA) [Mass fraction] 99 % Dr. Svetlana Casas Work Phone: [facility] 02-09-2022 10:24-0400 Systolic blood pressure 148 mm[Hg] Dr. Svetlana Casas Work Phone: [facility] 10-27-2021 16:22-0400 Body temperature 98 [degF] Dr. Svetlana Casas Work Phone: [facility] Work Phone: 10-27-2021 16:22-0400 Diastolic blood pressure 90 mm[Hg] Dr. Svetlana Casas Work Phone: [facility] Work Phone: 10-27-2021 16:22-0400 Heart rate 55 /min Dr. Svetlana Casas Work Phone: [facility] Work Phone: 10-27-2021 16:22-0400 Respiratory rate 18 /min Dr. Svetlana Casas Work Phone: [facility] Work Phone: 10-27-2021 16:22-0400 SaO2% (BldA) [Mass fraction] 100 % Dr. Svetlana Casas Work Phone: [facility] Work Phone: 10-27-2021 16:22-0400 Systolic blood pressure 187 mm[Hg] Dr. Svetlana Casas Work Phone: [facility] Work Phone: 10-27-2021 14:21-0400 Inhaled oxygen flow rate 15 L/min Dr. Svetlana Casas Work Phone: [facility] Work Phone: 10-27-2021 13:51-0400 Body height 177.[address] Svetlana Casas Work Phone: [facility] Work Phone: 10-27-2021 13:51-0400 Body mass index (BMI) [Ratio] 23.4 kg/m2 Dr. Svetlana Casas Work Phone: [facility] Work Phone: 10-27-2021 13:51-0400 Body weight 74.[address] Svetlana Casas Work Phone: [facility] Work Phone: 08-22-2021 08:59-0400 Body height 180.[address] Svetlana Casas Work Phone: [facility] Work Phone: 08-22-2021 08:59-0400 Body mass index (BMI) [Ratio] 23.2 kg/m2 Dr. Svetlana Casas Work Phone: [facility] Work Phone: 08-22-2021 08:59-0400 Body temperature 97.3 [degF] Dr. Svetlana Casas Work Phone: [facility] Work Phone: 08-22-2021 08:59-0400 Body weight 75.[address] Svetlana Casas Work Phone: [facility] Work Phone: 08-22-2021 08:59-0400 Diastolic blood pressure 80 mm[Hg] Dr. Svetlana Casas Work Phone: [facility] Work Phone: 08-22-2021 08:59-0400 Heart rate 88 /min Dr. Svetlana Casas Work Phone: [facility] Work Phone: 08-22-2021 08:59-0400 Respiratory rate 16 /min Dr. Svetlana Casas Work Phone: [facility] Work Phone: 08-22-2021 08:59-0400 SaO2% (BldA) [Mass fraction] 98 % Dr. Svetlana Casas Work Phone: [facility] Work Phone: 08-22-2021 08:59-0400 Systolic blood pressure 140 mm[Hg] Dr. Svetlana Casas Work Phone: [facility] Work Phone: 07-12-2021 23:29-0400 Diastolic blood pressure 68 mm[Hg] Dr. Svetlana Casas Work Phone: [facility] Work Phone: 07-12-2021 23:29-0400 Heart rate 65 /min Dr. Svetlana Casas Work Phone: [facility] Work Phone: 07-12-2021 23:29-0400 Respiratory rate 17 /min Dr. Svetlana Casas Work Phone: [facility] Work Phone: 07-12-2021 23:29-0400 SaO2% (BldA) [Mass fraction] 95 % Dr. Svetlana Casas Work Phone: [facility] Work Phone: 07-12-2021 23:29-0400 Systolic blood pressure 136 mm[Hg] Dr. Svetlana Casas Work Phone: [facility] Work Phone: 07-12-2021 19:54-0400 Body mass index (BMI) [Ratio] 23.7 kg/m2 Dr. Svetlana Casas Work Phone: [facility] Work Phone: 07-12-2021 19:54-0400 Body temperature 97 [degF] Dr. Svetlana Casas Work Phone: [facility] Work Phone: 07-12-2021 19:54-0400 Body weight 77.[address] Svetlana Casas Work Phone: [facility] Work Phone: 07-03-2021 09:54-0500 Body mass index (BMI) [Ratio] 24.8 kg/m2 Dr. Svetlana Casas Work Phone: [facility] Work Phone: 07-03-2021 09:54-0500 Body temperature 95.7 [degF] Dr. Svetlana Casas Work Phone: [facility] Work Phone: 07-03-2021 09:54-0500 Body weight 80.[address] Svetlana Casas Work Phone: [facility] Work Phone: 07-03-2021 09:54-0500 Diastolic blood pressure 78 mm[Hg] Dr. Svetlana Casas Work Phone: [facility] Work Phone: 07-03-2021 09:54-0500 Heart rate 84 /min Dr. Svetlana Casas Work Phone: [facility] Work Phone: 07-03-2021 09:54-0500 Respiratory rate 16 /min Dr. Svetlana Casas Work Phone: [facility] Work Phone: 07-03-2021 09:54-0500 SaO2% (BldA) [Mass fraction] 99 % Dr. Svetlana Casas Work Phone: [facility] Work Phone: 07-03-2021 09:54-0500 Systolic blood pressure 128 mm[Hg] Dr. Svetlana Casas Work Phone: [facility] Work Phone: NEGATED: Highlighted [id number] 12:59-0500 Body height 180.34 cm Charlette Alejo AT [facility] Work Phone: NEGATED: Highlighted [id number] 12:59-0500 Body height 180 cm Charlette Alejo AT [facility] Work Phone: NEGATED: Highlighted [id number] 12:59-0500 Body mass index (BMI) [Ratio] 24.78 kg/m2 Charlette Alejo AT [facility] Work Phone: NEGATED: Highlighted [id number] 12:59-0500 Body weight 80.29 kg Charlette Alejo AT [facility] Work Phone: NEGATED: Highlighted [id number] 12:59-0500 Body weight 80 kg Charlette Alejo AT [facility] Work Phone: Encounters Encounter Date Encounter Type Care Provider Facility Start: 12-21-2024 End: 12-21-[address] Hussein Waldron MD -[facility] Work Phone: Start: 12-21-2024 End: 12-21-[address] Svetlana Casas MD Work Phone: -[facility] Start: 12-21-2024 End: 12-21-2024 ambulatory Hussein Waldron Facility:[facility] Start: 12-17-2024 End: 12-17-[address] Svetlana Casas MD Work Phone: -Laboratory Start: 12-17-2024 End: 12-17-[address] Svetlana Casas MD -Laboratory Work Phone: Start: 12-17-2024 End: 12-17-[address] Svetlana Casas MD -[facility] Work Phone: Start: 12-17-2024 End: 12-17-[address] Svetlana Casas MD Work Phone: -[facility] Start: 12-17-2024 End: 12-17-2024 ambulatory Svetlana Casas Facility:[facility] Start: 11-02-2024 End: 11-02-[address] Svetlana Casas MD Work Phone: -Laboratory Start: 11-02-2024 End: 11-02-[address] Svetlana Casas MD -Laboratory Work Phone: Start: 11-02-2024 End: 11-02-2024 ambulatory Rosettabisi Houstonari Facility:[facility] Start: 10-16-2024 End: 10-16-[address] Adolph Maza MD -[facility] Work Phone: Start: 10-16-2024 End: 10-16-[address] Svetlana Casas MD Work Phone: [facility] Work Phone: Start: 09-30-2024 End: 09-30-[address] Svetlana Casas MD Work Phone: [facility] Work Phone: Start: 09-30-2024 End: 09-30-[address] Susan Robles MD -Laboratory Work Phone: Start: 09-30-2024 End: 09-30-2024 ambulatory Susan Robles Facility:[facility] Start: 09-28-2024 Encounter for genera l adult medical examination without abnormal findings Svetlana Casas [facility] Start: 09-23-2024 End: 09-23-[address] Svetlana Casas MD Work Phone: [facility] Work Phone: Start: 09-23-2024 End: 09-23-[address] Svetlana Casas MD -Laboratory [place] Work Phone: Start: 09-22-2024 End: 09-22-[address] Svetlana Casas MD Work Phone: [facility] Work Phone: Start: 09-22-2024 End: 09-22-[address] Svetlana Casas MD -[facility] Work Phone: Start: 09-22-2024 End: 09-22-[address] Hussein Waldron MD -[facility] Work Phone: Start: 09-22-2024 End: 09-23-[address] Svetlana Casas MD Work Phone: [facility] Work Phone: Start: 09-22-2024 End: 09-22-2024 ambulatory Svetlana Casas Facility:[facility] Start: 09-16-2024 End: 09-16-[address] Svetlana Casas MD -[facility] Work Phone: Start: 09-16-2024 End: 09-16-[address] Svetlana Casas MD Work Phone: [facility] Work Phone: Start: 07-25-2024 End: 07-25-[address] Svetlana Casas MD Work Phone: [facility] Work Phone: Start: 07-25-2024 End: 07-25-[address] Hussein Waldron MD -[facility] Work Phone: Start: 07-25-2024 End: 07-25-2024 ambulatory Hussein Waldron Facility:[facility] Start: 06-29-2024 End: 06-29-[address] Svetlana Casas MD Work Phone: [facility] Work Phone: Start: 06-29-2024 End: 06-29-[address] Hussein Waldron MD -Laboratory, [place] Work Phone: Start: 06-29-2024 End: 06-29-2024 ambulatory [facility] Facility:[facility] Start: 06-25-2024 End: 06-25-[address] Hussein Waldron MD -[facility] Work Phone: Start: 06-25-2024 End: 06-25-2024 ambulatory [facility] Facility[facility] Start: 06-11-2024 ambulatory SELF SELF Facility:[facility] Start: 06-10-2024 End: 06-10-[address] Svetlana Casas MD -[facility] Work Phone: Start: 06-10-2024 End: 06-10-[facility] Start: 06-04-2024 End: 06-04-[address] Svetlana Casas MD Work Phone: [facility] Work Phone: Start: 06-04-2024 End: 06-04-2024 ambulatory [facility] Facility:[facility] Start: 05-18-2024 End: 05-18-[address] Nina Marrero MD -Laboratory, [facility] Start: 05-18-2024 End: 05-18-2024 ambulatory Nina Marrero Facility:[facility] Start: 05-16-2024 End: 05-16-[address] Nina Marrero MD -Laboratory Work Phone: Start: 05-16-2024 End: 05-16-2024 ambulatory Nina Marrero Facility:[facility] Start: 04-30-2024 ambulatory SELF SELF Facility:[facility] Start: 03-13-2024 End: 03-13-[address] Nina Marrero MD -Laboratory, [facility] Work Phone: Start: 03-13-2024 End: 03-13-2024 ambulatory Nina Houstonari Facility:[facility] Start: 03-04-2024 End: 03-04-2024 ambulatory Svetlana Casas Facility:[facility] Start: 03-04-2024 End: 03-04-2024 ambulatory Svetlana Casas Facility:[facility] Start: 02-11-2024 End: 02-11-2024 ambulatory Susan Robles Facility:[facility] Start: 08-21-2023 End: 08-21-[address] Svetlana Casas Work Phone: [facility] Work Phone: Start: 08-21-2023 End: 08-21-[address] Svetlana Casas Work Phone: [facility] [employer] Start: 08-21-2023 End: 08-21-[address] Svetlana Casas Work Phone: [facility] Work Phone: Start: 07-12-2023 End: 07-12-[address] Svetlana Csaas Work Phone: [facility] Work Phone: Start: 07-01-2023 End: 07-01-[address] Svetlana Casas Work Phone: [facility] Work Phone: Start: 07-01-2023 End: 07-01-[address] Svetlana Casas Work Phone: [facility] Work Phone: Start: 06-29-2023 End: 06-29-2023 Emergency department patient visit Dr. Svetlana Casas Work Phone: [facility] Work Phone: Start: 05-22-2023 End: 05-22-[address] Svetlana Casas Work Phone: [facility] Work Phone: Start: 05-22-2023 End: 05-22-[address] Svetlana Casas Work Phone: [facility] Work Phone: Start: 05-02-2023 End: 05-02-2023 Office outpatient visit 15 minutes Franck Stewart MD Work Phone: [facility] Comment on above: Primary pancreatic n euroendocrine tumor (Primary Dx) Start: 05-02-2023 End: 05-02-2023 Subsequent hospital visit by physician Gay Sanderson GI ASST-LEHR CUTTER, DNP Work Phone: [facility] Comment on above: Arrived Start: 02-18-2023 End: 02-18-[address] Svetlana Casas Work Phone: [facility] Work Phone: Start: 02-18-2023 End: 02-18-[address] Svetlana Casas Work Phone: [facility] Internal [facility] Work Phone: Start: 12-24-2022 End: 12-24-2022 Emergency department patient visit Dr. Svetlana Casas Work Phone: [facility] Work Phone: Start: 11-16-2022 End: 11-16-[address] Svetlana Casas Work Phone: [facility] Work Phone: Start: 10-25-2022 End: 10-25-2022 Office outpatient visit 15 minutes Franck Stewart MD Work Phone: [facility] Comment on above: Primary pancreatic n euroendocrine tumor (Primary Dx) Start: 10-19-2022 End: 10-19-[address] Svetlana Casas Work Phone: [facility] Work Phone: Start: 10-04-2022 End: 10-04-[address] Svetlana Casas Work Phone: [facility] Work Phone: Start: 09-12-2022 End: 09-12-[address] Svetlana Casas Work Phone: [facility] Internal [facility] Work Phone: Start: 08-15-2022 End: 08-15-[address] Svetlana Casas Work Phone: [facility] Internal [facility] Work Phone: Start: 07-06-2022 End: 07-06-2022 Subsequent hospital visit by physician Amado Murray DO Work Phone: [facility] Start: 06-28-2022 End: 06-28-2022 Office outpatient new 60 minutes Franck Stewart MD Work Phone: [facility] Comment on above: Pancreatic mass (Pallavi marita Dx); Other abnormal tumor markers; Type 2 diabetes mellitus without complication, unspecified whether exterminator insulin use Start: 06-26-2022 End: 06-26-2022 Subsequent hospital visit by physician Benoit Benavides MD Work Phone: [facility] Comment on above: Arrived Start: 05-16-2022 End: 05-16-[address] Svetlana Casas Work Phone: [facility] Internal [facility] Start: 05-15-2022 End: 05-15-[address] Svetlana Casas Work Phone: [facility] Start: 05-11-2022 Non-patient / Non-visit Dr. Dameon Casas Work Phone: [facility] Start: 05-11-2022 End: 05-11-[address] Svetlana Casas Work Phone: [facility] Work Phone: Start: 05-11-2022 End: 05-11-[address] Svetlana Casas Work Phone: [facility] Start: 05-07-2022 End: 05-07-[address] Svetlana Casas Work Phone: [facility] Work Phone: Start: 05-07-2022 End: 05-07-[address] Svetlana Casas Work Phone: [facility] Start: 05-02-2022 End: 05-02-[address] Svetlana Casas Work Phone: [facility] Start: 04-17-2022 End: 04-17-[address] Svetlana Casas Work Phone: [facility] Work Phone: Start: 04-17-2022 End: 04-17-[address] Svetlana Casas Work Phone: [facility] Start: 04-09-2022 End: 04-09-[address] Svetlana Casas Work Phone: [facility] Start: 04-05-2022 End: 04-05-[address] Svetlana Casas Work Phone: [facility] Work Phone: Start: 04-05-2022 End: 04-05-[address] Svetlana Casas Work Phone: [facility] Start: 03-25-2022 Non-patient / Non-visit Dr. Dameon Casas Work Phone: [facility] Start: 03-25-2022 End: 03-25-2022 Evaluation and management of inpatient Dr. Svetlana Casas [facility] Start: 02-09-2022 End: 02-09-[address] Svetlana Casas Work Phone: [facility] Start: 10-27-2021 End: 10-27-2021 Emergency department patient visit Dr. Svetlana Casas Work Phone: [facility] Start: 08-22-2021 End: 08-22-[address] Svetlana Casas Work Phone: [facility] Start: 07-12-2021 End: 07-12-2021 Emergency department patient visit Dr. Svetlana Casas Work Phone: [facility] Start: 07-03-2021 End: 07-03-[address] Svetlana Casas Work Phone: [facility] Start: 06-30-2021 End: 06-30-[address] Svetlana Casas Work Phone: [facility], Specimen Start: 06-27-2021 End: 06-27-[address] Svetlana Casas Work Phone: [facility] Start: 06-19-2021 End: 06-19-[address] Svetlana Casas Work Phone: [facility] Start: 02-27-[address] Svetlana Casas Work Phone: [facility] Start: 03-10-2020 End: 03-10-2020 ambulatory MARIS A CEBUL III [facility] Start: 07-14-2018 End: 07-14-2018 Patient encounter procedure [facility] Procedures Date Procedure Procedure Detail Performing Clinician Start: 12-21-2024 Albumin/Globulin ratio Dr. Svetlana Casas MD Work Phone: Start: 12-21-2024 Immun[address] M [address] Svetlana Casas MD Work Phone: Start: 09-30-2024 Methadone measurement, urine Dr. Svetlana Casas MD Work Phone: Start: 09-30-[address] Tan Casas MD Work Phone: Comment on above: Test Ordered: [id number] Screen, Urine Note: ng/mL UI See Final Results Reference Range: Mzhifd=851Qfkmlzbxskw test includes Amphetamine and Methamphetamine.Amphetamines Negative UI Reference Range: Pgxlje=759Xlfsrjuakiv test includes Amphetamine and Methamphetamine.Barbiturates Negative ng/mL UI Reference Range: Pqnbte=604Vooxnltmfzzrexz Negative ng/mL UI Reference Range: Pqxjvi=535Zwwmucn (Metab.), Urine Negative ng/mL UI Reference Range: Jturca=773Vklvcli Note: ng/mL UI See Final Results Reference Range: Kdehdr=668Wemsfl test includes Codeine, Morphine, Hydromorphone, Hydrocodone.Opiates Positive [A ] UI Reference Range: Qprzgf=975Fshcgr test includes Codeine, Morphine, Hydromorphone, Hydrocodone.Codeine Positive [A ] UI Reference Range: .Codeine Conf, MS, UR >3000 ng/mL UI Reference Range: Qzocgk=983Oeyuubzo Positive [A ] UI Reference Range: .Morphine Conf, MS, UR 447 ng/mL UI Reference Range: Naahff=718Uowuilrgqmnni Negative UI Reference Range: Elasqs=858Opkmilfxqlw Negative UI Reference Range: Ddkxrx=5026-Safvuixomfkdwj, Urine Negative ng/mL UI Reference Range: Cutoff=10Oxycodone/Oxymorphone, Urine Negative ng/mL UI Reference Range: Gvodei=595Zeyl includes Oxycodone and OxymorphonePCP, Urine Negative ng/mL UI Reference Range: Cutoff=25Methadone Screen, Urine Negative ng/mL UI Reference Range: Nnviqa=835Cjvjhiqicymf, Urine Negative ng/mL UI Reference Range: Rndxtp=730Ltlbdbsp, Urine Negative ng/mL UI Reference Range: Cutoff=2.0Test includes Fentanyl and NorfentanylThis test was developed and its performance characteristicsdetermined by [employer]. It has not been cleared orapproved by the Food and Drug Administration.Tramadol Note: ng/mL UI See Final Results Reference Range: Txfgez=232Olljedrq Positive [A ] UI Reference Range: Yxfuxr=203Mniesraz Conf, MS, UR >59976 ng/mL UI Reference Range: Cmzwsq=696Rrxnuprwsiqvf, Urine Negative ng/mL UI Reference Range: Cutoff=10Creatinine, Urine 86.2 mg/dL UI Reference Range: 20.0-300.0pH, Urine 5.2 UI Reference Range: 4.5-8.9Performed at: [facility] [id number] [place], [place] [id number] Director: Lindy Becerra PhD, Phone: [phone] at: [address] [id number] Director: Stu Nguyen PhD, Phone: [phone] Start: 09-23-2024 Albumin/Globulin ratio Dr. Svetlana Casas MD Work Phone: Comment on above: Test not performed Start: 09-23-[address] Immun[address] M measurement Dr[address] Svetlana Casas MD Work Phone: Comment on above: Test not performedTe st not performed Start: 09-23-[address] Jerry Casas MD Work Phone: Comment on above: No monoclonality det ected. Start: 05-28-2025 Urnls dip stick/tabl et reagent auto microscopy Dr. Svetlana Casas MD Work Phone: Start: 09-22-2024 Prostate specific an tigen measurement Dr. Svetlana Casas MD Work Phone: Comment on above: This test was perfor med using the [employer] tPSA method. Measured values of a patient sample can vary depending on the testing procedure used. PSA values determined on patient samples by different testing procedures cannot be used interchangeably. If there is a change in PSA assays while monitoring therapy, sequential testing should be performed to confirm baseline values. Start: 09-22-2024 X-ray of chest poste roanterior view Dr. Svetlana Casas MD Work Phone: Start: 07-25-2024 MRI of brain without contrast Dr. Svetlana Casas MD Work Phone: Start: 06-29-2024 Folic acid measurement, RBC Dr. Svetlana Casas MD Work Phone: Start: 06-29-2024 Urine lambda light c bal measurement Dr. Svetlana Casas MD Work Phone: Start: 06-04-2024 MRI of abdomen with contrast Dr. Svetlana Casas MD Work Phone: Start: 06-04-2024 MRI of pelvis with contrast Dr. Svetlana Casas MD Work Phone: Start: 05-18-[address] Heena Casas MD Work Phone: Start: 05-16-[address] Heena Casas MD Work Phone: Start: 03-13-[address] Heena Casas MD Work Phone: Start: 03-06-[address] Heena Casas MD Work Phone: Start: 06-29-2023 Plain x-ray of hand Dr. Svetlana Casas Work Phone: Start: 05-02-2023 Mri abdomen w/o & w/ contrast material Gay Munguia Kin GI ASST-LEHR CUTTER, DNP Work Phone: Start: 12-24-2022 Plain X-ray of shoulder Dr. Svetlana Casas Work Phone: Start: 12-24-2022 X-ray of cervical spine Dr. Svetlana Casas Work Phone: Start: 07-06-2022 UPPER EUS Gay Munguia Kin GI ASST-LEHR CUTTER Work Phone: Start: 07-06-2022 Glucose measurement, blood Amado Moore Trevor BRADLEY Work Phone: Start: 06-26-[address] atten uation skull base mid-thigh Benoit Benavides MD Work Phone: Start: 05-11-2022 Cardiovascular stres s test using pharmacologic stress agent Dr. Svetlana Casas Work Phone: Start: 05-07-2022 MRI of abdomen with contrast Dr. Svetlana Casas Work Phone: Start: 03-24-2022 CT angiography of ch est with contrast Dr. Svetlana Casas Work Phone: Start: 03-24-2022 Plain chest X-ray Dr. Jeb Casas Work Phone: Start: 07-12-2021 X-ray of chest poste roanterior view Dr. Svetlana Casas Work Phone: Start: 07-12-[address] Svetlana Casas Work Phone: Start: 06-12-2021 End: 06-15-2021 Calc BMI norm parameters Ema Lovett MD Work Phone: Start: 06-12-2021 End: 06-15-2021 Current tobacco non-user cad cap copd pv dm Ema Lovett MD Work Phone: Start: 06-12-2021 End: 06-15-2021 Doc rsn no hbp scrn or f/u Ema Blanco Work Phone: Start: 06-12-2021 End: 06-15-2021 Docrev cur meds by singh Lovett MD Work Phone: Start: 06-12-2021 End: 06-15-2021 Falls plan of care documented Ema cosby MD Work Phone: Start: 06-12-2021 End: 06-15-2021 Falls risk assessment documented Ema Lovett MD Work Phone: Start: 06-12-2021 End: 06-15-2021 Pain doc pos and plan Ema Lovett MD Work Phone: Start: 06-12-2021 End: 06-15-2021 Patient encounter procedure Ema Lovett MD Work Phone: Start: 06-12-2021 End: 06-15-2021 Pt falls assess docd 2/> falls/fall w/injury/yr Ema Lovett MD Work Phone: Laboratory test result abnormal Other abnormal tumor markers Franck Stewart MD Work Phone: SARS-CoV-2 & FLU Antigen (Rapid) Dr. Svetlana Casas Work Phone: SARS-CoV-2 & FLU Antigen (Rapid) Dr. Svetlana Casas Work Phone: NEGATED: Highlighted rowStart: 06-12-2021 End: 06-12-2021 Documentation of current medications Charlette Alejo AT Plan of Treatment Date Care Activity Detail Author Start: 01-18-2030 Tetanus vaccination TETANUS [facility] Start: 12-21-2024 Serum immunofixation [facility] Start: 09-30-2024 Procedure [facility] Start: 09-23-2024 Serum immunofixation [facility] Start: 09-23-2024 Urine immunofixation [facility] Start: 05-02-2024 End: 05-02-2024 Magnetic resonance imaging of abdomen and pelvis with contrast MRI ABDOMEN/PELVIS WITHOUT AND WITH CONTRAST Imaging Routine Primary pancreatic neuroendocrine tumor Expected: 05/02/2024, Expires: 05/02/2024 [facility] Comment on above: Expected: 05/02/2024, Expires: Start: 04-30-2024 End: 04-30-2024 Telemedicine consultation with patient 04/30/2024 12:30 PM EST Telemedicine Division of Surgical Oncology [address] [place] [id number] Franck Stewart MD [address] [place] [address] Division of Surgical Oncology Start: 07-12-2023 Patient referral [facility] Work Phone: Start: 04-26-2023 End: 10-26-2023 MR Abdomen WO and W contrast IV MRI ABDOMEN WITH AND WITHOUT CONTRAST Imaging Routine Primary pancreatic neuroendocrine tumor Expected: 04/26/2023, Expires: 10/26/2023 [facility] Comment on above: Expected: 04/26/2023, Expires: Start: 04-25-2023 End: 04-25-2023 Patient encounter procedure 04/25/2023 1:45 PM EST Office Visit [facility] [address] [place], [place] [id number] Franck Stewart MD [address] [place] [id number] [facility] Start: 04-25-2023 End: 04-25-2023 Patient encounter procedure 04/25/2023 12:40 PM EST Appointment [facility] [address] [facility] [address] [place] [address] Gay Sanderson, GI ASST-LEHR CUTTER [address] [place] [address] [facility] Start: 02-18-2023 Patient referral [facility] Work Phone: Start: 12-29-2022 Hemoglobin A1c measurement HBA1C TEST [facility] Start: 12-28-2022 COVID-19 VACCINE () COVID-19 VACCINE () [facility] Start: 12-28-2022 Influenza vaccination INFLUENZA VACCINE (#1) [facility] Start: 11-16-2022 Patient referral [facility] Work Phone: Start: 10-28-2022 End: 06-29-2023 MR Abdomen WO and W contrast IV MRI ABDOMEN WITH AND WITHOUT CONTRAST Imaging Routine Pancreatic mass Expected: 10/28/2022, Expires: 06/29/2023 [facility] Comment on above: Expected: 10/28/2022, Expires: Start: 10-25-2022 End: 10-25-2022 Patient encounter procedure 10/25/2022 Office Visit Surgical Oncology Franck Stewart MD [address] [place] [address] [facility] [place] Start: 10-25-2022 End: 10-25-2022 Patient encounter procedure [facility] Start: 08-01-2022 End: 08-01-2022 Patient encounter procedure 08/01/2022 Office Visit Oncology Benoit Benavides MD [address] [place] [address] Division of Medical Oncology Start: 07-06-2022 End: 07-06-2022 Patient encounter procedure 07/06/2022 Appointment Endoscopy Amado Murray W, DO [address] [address] [facility] Start: 06-28-2022 End: 06-29-2023 UPPER EUS UPPER EUS GI/Bronch STAT Pancreatic mass Expected: 06/28/2022, Expires: 06/29/2023 [facility] Comment on above: Expected: 06/28/2022, Expires: Start: 06-28-2022 End: 06-28-2022 Patient encounter procedure [facility] [place] [facility] Start: 06-26-2022 End: 06-26-2023 C-PEPTIDE C-PEPTIDE Lab Routine Pancreatic mass Expected: 06/26/2022, Expires: 06/26/2023 [facility] Comment on above: Expected: 06/26/2022, Expires: Start: 06-26-2022 End: 06-26-2023 CALCITONIN CALCITONIN Lab Routine Pancreatic mass Expected: 06/26/2022, Expires: 06/26/2023 [facility] Comment on above: Expected: 06/26/2022, Expires: Start: 06-26-2022 End: 06-26-2023 CHROMOGRANIN A CHROMOGRANIN A Lab Routine Pancreatic mass Expected: 06/26/2022, Expires: 06/26/2023 [facility] Comment on above: Expected: 06/26/2022, Expires: Start: 06-26-2022 End: 06-26-2023 GASTRIN - NON-STIMULATED GASTRIN - NON-STIMULATED Lab Routine Pancreatic mass Expected: 06/26/2022, Expires: 06/26/2023 [facility] Comment on above: Expected: 06/26/2022, Expires: Start: 06-26-2022 End: 06-26-2023 GLUCAGON GLUCAGON Lab Routine Pancreatic mass Expected: 06/26/2022, Expires: 06/26/2023 [facility] Comment on above: Expected: 06/26/2022, Expires: Start: 06-26-2022 End: 06-26-2023 INSULIN INSULIN Lab Routine Pancreatic mass Expected: 06/26/2022, Expires: 06/26/2023 [facility] Comment on above: Expected: 06/26/2022, Expires: 4 Start: 06-26-2022 End: 06-26-2023 PANCREATIC POLYPEPTIDE PANCREATIC POLYPEPTIDE Lab Routine Pancreatic mass Expected: 06/26/2022, Expires: 06/26/2023 [facility] Comment on above: Expected: 06/26/2022, Expires: 4 Start: 06-26-2022 End: 06-26-2023 PROINSULIN PROINSULIN Lab Routine Pancreatic mass Expected: 06/26/2022, Expires: 06/26/2023 [facility] Comment on above: Expected: 06/26/2022, Expires: Start: 03-25-2022 Patient discharge [facility] Start: 03-25-2022 Oxygen therapy [facility] Start: 03-25-2022 Following clinical pathway protocol [facility] Start: 03-25-2022 Care regimes management [facility] Start: 03-25-2022 Insertion of catheter into peripheral vein [facility] Start: 03-25-2022 Notification of physician [facility] Start: 03-25-2022 Providing care according to standard [facility] Start: 03-25-2022 Provision of activity privileges [facility] Start: 03-25-2022 [facility] Start: 03-25-2022 Verification routine [facility] Work Phone: Start: 03-25-2022 Admission procedure [facility] Start: 03-24-2022 [facility] Work Phone: Start: 03-24-2022 [facility] Start: 12-28-2021 Influenza vaccination INFLUENZA VACCINE (#1) [facility] Start: 08-29-2021 End: 08-29-2021 Patient encounter procedure Appointment [facility] Work Phone: Start: 06-12-2021 End: 06-12-2021 Radex foot complete minimum 3 views XR FOOT 3+ VWS-LT [facility] Work Phone: Start: 08-30-2020 COVID-19 VACCINE (2 - Pfizer series) COVID-19 VACCINE (2 - Pfizer series) [facility] Start: 07-26-2020 COVID-19 VACCINE (2 - Pfizer series) COVID-19 VACCINE (2 - Pfizer series) [facility] Start: 09-12-2011 Abdominal aortic aneurysm screening ABDOMINAL AORTIC ANEURYSM HIGH RISK SCREEN [facility] Start: 1996 Prostate specific antigen measurement PROSTATE CANCER SCREENING DISCUSSION [facility] Start: 1996 Zoster vaccine hzv live for subcutaneous use ZOSTER (SHINGLES) VACCINE (1 of 2) [facility] Start: 09-12-1991 Screening for malignant neoplasm of colon COLORECTAL CANCER SCREENING DISCUSSION [facility] Start: 1986 Lipid panel LIPID SCREENING [facility] Start: 1946 Diabetic foot examination DIABETIC FOOT EXAM [facility] Start: 1946 Glaucoma screening EYE EXAM [facility] Start: 1946 Hepatitis C screening HEPATITIS C VIRUS SCREENING [facility] Start: 1946 Lipid panel LIPIDS [facility] Start: 1946 Urine screening for protein URINE MICROALBUMIN TEST [facility] Albumin [Moles/volum e] in Serum or Plasma [facility] Albumin [Moles/volum e] in Serum or Plasma [facility] Albumin/Globulin ratio [facility] Albumin/Globulin ratio [facility] Basic metabolic 2008 panel with ionized calcium - Serum or Plasma [facility] C-PEPTIDE C-PEPTIDE Lab Ro utine Pancreatic mass 06/28/2022 10:55 AM EST [facility] CALCITONIN CALCITONIN Lab R outine Pancreatic mass 06/28/2022 10:55 AM EST [facility] CBC W Auto Different ial panel - Blood [facility] CHROMOGRANIN A CHROMOGRANIN A L ab Routine Pancreatic mass 06/28/2022 10:55 AM EST [facility] Comprehensive metabo lic 2000 panel - Serum or Plasma [facility] CYTOLOGY, NON-CATALOG LIBRARY ASSISTANT - FNA ONLY [facility] Comment on above: Release Upon Ordering for 1 Occurrences starting 07/06/2022, 1 completed Electrophoresis: [id number] [facility] Electrophoresis: [id number] [facility] Electrophoresis: clyde ma globulin [facility] Electrophoresis: clyde ma globulin [facility] GASTRIN - NON-STIMULATED GASTRIN - NON-STIMULATED Lab Routine Pancreatic mass 06/28/2022 10:55 AM EST [facility] Globulin measurement [facility] Globulin measurement [facility] GLUCAGON GLUCAGON Lab Rou laura Pancreatic mass 06/28/2022 10:55 AM EST [facility] Hemoglobin A1c/Hemoglobin.total in Blood [facility] IgA [Mass/volume] in Serum or Plasma [facility] IgA [Mass/volume] in Serum or Plasma [facility] IgG [Mass/volume] in Serum or Plasma [facility] IgG [Mass/volume] in Serum or Plasma [facility] IgM [Mass/volume] in Serum or Plasma [facility] IgM [Mass/volume] in Serum or Plasma [facility] INSULIN INSULIN Lab Rout ine Pancreatic mass 06/28/2022 10:55 AM EST [facility] Laboratory data interpretation [facility] Laboratory data interpretation [facility] Lipid 1996 panel - Serum or Plasma [facility] MR Brain contrast [facility] PANCREATIC POLYPEPTIDE PANCREATI C POLYPEPTIDE Lab Routine Pancreatic mass 06/28/2022 10:55 AM EST [facility] Patient Education \cps-sql1\CPS_ PtEducatio n\CDC_FALL_PREVENTION.pd f [facility] [place] [facility] Work Phone: Patient Education [facility] Work Phone: Patient referral [facility] Work Phone: PROINSULIN PROINSULIN Lab R outine Pancreatic mass 06/28/2022 10:55 AM [facility] Prostate specific antigen measurement [facility] Protein electrophore sis panel - Serum or Plasma [facility] Protein electrophore sis panel - Serum or Plasma [facility] T4 free measurement [facility] Thyroid stimulating hormone measurement [facility] Thyroid stimulating hormone measurement [facility] Urinalysis complete panel - Urine [facility] Urine microalbumin/creatinine ratio measurement [facility] XR Ribs GE 3 Views a nd Chest PA [facility] [place] [place] Immunizations Immunization Date Immunization Notes Care Provider Fern loza 06-29-2023 tetanus toxoid, redu sharron diphtheria toxoid, and acellular pertussis vaccine, adsorbed Dr. Svetlana Casas Work Phone: [facility] 02-18-2023 influenza, injectabl e, quadrivalent, preservative free Dr. Svetlana Casas Work Phone: [facility] 07-05-2020 Covid (Pfizer) Dr. Svetlana Casas Work Phone: [facility] 01-19-2020 tetanus toxoid, redu sharron diphtheria toxoid, and acellular pertussis vaccine, adsorbed Dr. Svetlana Casas Work Phone: [facility] 12-31-2019 influenza virus vaccine, unspecified formulation Benoit Benavides MD Work Phone: [facility] 01-17-2017 tetanus toxoid, redu sharron diphtheria toxoid, and acellular pertussis vaccine, adsorbed Dr. Svetlana Casas Work Phone: [facility] 02-27-[address] Svetlana Casas Work Phone: [facility] Payers Date Payer Category Payer Self-pay [id number] 2022 Medicare MEDICARE MEDICAR E A AND B [id number] 2022-Present [address] [place] [address] [id number] 2019 Unknown GENERIC PAYOR ME DICARE SUPPLEMENT [id number] 2019-Present [id number] [place] [address] 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 [id number] Unknown [id number] [id number] Unknown [id number] [id number] Unknown [id number] [id number] Unknown [id number] 2.16.840.1.951292.3.579.2.462 Unknown [id number] 2.16.840.1.243787.3.579.2.462 Unknown [id number] 2.16.840.1.313585.3.579.2.462 Unknown [id number] 2.16.840.1.490002.3.579.2.462 Unknown [id number] 2.16.840.1.954384.3.579.2.462 Unknown [id number] 2.16.840.1.844507.3.579.2.462 Unknown [id number] 2.16.840.1.777973.3.579.2.462 Unknown [id number] 2.16.840.1.572710.3.579.2.462 Unknown [id number] 2.16.840.1.123364.3.579.2.462 Unknown [id number] 2.16.840.1.862401.3.579.2.462 Unknown [id number] 2.16.840.1.002982.3.579.2.462 Unknown [id number] 2.16.840.1.965300.3.579.2.462 Unknown [id number] 2.16.840.1.058274.3.579.2.462 Unknown [id number] 2.16.840.1.436420.3.579.2.462 Unknown [id number] 2.16.840.1.857259.3.579.2.462 Unknown [id number] 2.16.840.1.570179.3.579.2.462 Unknown [id number] [id number] Unknown [id number] [id number] Unknown [id number] [id number] Social History Date Type Detail Facility Start: 08-22-2021 End: 07-12-2023 Assertion Unknown if ever smoked [facility] Work Phone: Start: 08-19-2019 None [facility] Start: 08-19-2019 With Family [facility] Start: 04-11-2020 Non-smoker [facility] Start: 1945 Sex Assigned At Male [facility] Start: 1945 Sex Assigned At Not on file [facility] Start: 06-16-2022 End: 06-26-2022 Exposure to SARS-CoV-2 (event) Unable to assess [facility] Start: 06-28-2022 End: 07-06-2022 Tobacco smoking status NHIS Never smoked tobacco [facility] Start: 06-28-2022 Tobacco use and exposure Smokeless tobacco non-user [facility] Start: 06-28-2022 End: 10-25-2022 Alcohol intake Ex-drinker (finding) [facility] Start: 06-18-2022 End: 07-06-2022 Exposure to SARS-CoV-2 (event) Not sure [facility] Start: 07-06-2022 Tobacco use and exposure User of smokeless tobacco [facility] History of tobacco use Chews Tobacco [facility] Start: 10-25-2022 History of Social function [facility] Start: 10-25-2022 Tobacco use panel [facility] Adolescent depressio n screening assessment 0 [facility] Start: 07-12-2023 Tobacco smoking stat us FLIS Ex-smoker (finding) [facility] Start: 07-10-2024 End: 07-29-2024 Sex Male (finding) [facility] Medical Equipment Procedure Code Equipment Code Equipment Origin al Text Equipment Identifier Dates Arthroscopy, shoulder, with rotator cuff repair ANCHOR,5.5MM BIO CORK 2 FDA Start: 04-19-2020 Arthroscopy, shoulder, with rotator cuff repair ANCHOR,5.5MM BIO CORK 2 FDA Start: 04-19-2020 Arthroscopy, shoulder, with rotator cuff repair [place] SP,4.5 X 28 FDA Start: 04-19-2020 Arthroscopy, shoulder, with rotator cuff repair [place] SP,4.5 X 28 FDA Start: 04-19-2020 Arthroscopy, shoulder, with rotator cuff repair ANCHOR,5.5MM BIO CORK 2 FDA Start: 04-19-2020 Arthroscopy, shoulder, with rotator cuff repair ANCHOR,5.5MM BIO CORK 2 FDA Start: 04-19-2020 Arthroscopy, shoulder, with rotator cuff repair [place] SP,4.5 X 28 FDA Start: 04-19-2020 Arthroscopy, shoulder, with rotator cuff repair [place] SP,4.5 X 28 FDA Start: 04-19-2020 Arthroscopy, shoulder, with rotator cuff repair ANCHOR,5.5MM BIO CORK 2 FDA Start: 04-19-2020 Arthroscopy, shoulder, with rotator cuff repair ANCHOR,5.5MM BIO CORK 2 FDA Start: 04-19-2020 Arthroscopy, shoulder, with rotator cuff repair [place] SP,4.5 X 28 FDA Start: 04-19-2020 Arthroscopy, shoulder, with rotator cuff repair [place] SP,4.5 X 28 FDA Start: 04-19-2020 Arthroscopy, shoulder, with rotator cuff repair ANCHOR,5.5MM BIO CORK 2 FDA Start: 04-19-2020 Arthroscopy, shoulder, with rotator cuff repair ANCHOR,5.5MM BIO CORK 2 FDA Start: 04-19-2020 Arthroscopy, shoulder, with rotator cuff repair P[place]HLOCK SP,4.5 X 28 FDA Start: 04-19-2020 Arthroscopy, shoulder, with rotator cuff repair [place] SP,4.5 X 28 FDA Start: 04-19-2020 Arthroscopy, shoulder, with rotator cuff repair ANCHOR,5.5MM BIO CORK 2 FDA Start: 04-19-2020 Arthroscopy, shoulder, with rotator cuff repair ANCHOR,5.5MM BIO CORK 2 FDA Start: 04-19-2020 Arthroscopy, shoulder, with rotator cuff repair [place]HLOCK SP,4.5 X 28 FDA Start: 04-19-2020 Arthroscopy, shoulder, with rotator cuff repair [place] SP,4.5 X 28 FDA Start: 04-19-2020 Arthroscopy, shoulder, with rotator cuff repair ANCHOR,5.5MM BIO CORK 2 FDA Start: 04-19-2020 Arthroscopy, shoulder, with rotator cuff repair ANCHOR,5.5MM BIO CORK 2 FDA Start: 04-19-2020 Arthroscopy, shoulder, with rotator cuff repair P[place]HLOCK SP,4.5 X 28 FDA Start: 04-19-2020 Arthroscopy, shoulder, with rotator cuff repair [place] SP,4.5 X 28 FDA Start: 04-19-2020 Arthroscopy, shoulder, with rotator cuff repair ANCHOR,5.5MM BIO CORK 2 FDA Start: 04-19-2020 Arthroscopy, shoulder, with rotator cuff repair ANCHOR,5.5MM BIO CORK 2 FDA Start: 04-19-2020 Arthroscopy, shoulder, with rotator cuff repair PUSHLOCK SP,4.5 X 28 FDA Start: 04-19-2020 Arthroscopy, shoulder, with rotator cuff repair [place] SP,4.5 X 28 FDA Start: 04-19-2020 Arthroscopy, shoulder, with rotator cuff repair ANCHOR,5.5MM BIO CORK 2 FDA Start: 04-19-2020 Arthroscopy, shoulder, with rotator cuff repair ANCHOR,5.5MM BIO CORK 2 FDA Start: 04-19-2020 Arthroscopy, shoulder, with rotator cuff repair P[place]HLOCK SP,4.5 X 28 FDA Start: 04-19-2020 Arthroscopy, shoulder, with rotator cuff repair [place] SP,4.5 X 28 FDA Start: 04-19-2020 Arthroscopy, shoulder, with rotator cuff repair ANCHOR,5.5MM BIO CORK 2 FDA Start: 04-19-2020 Arthroscopy, shoulder, with rotator cuff repair ANCHOR,5.5MM BIO CORK 2 FDA Start: 04-19-2020 Arthroscopy, shoulder, with rotator cuff repair PUSHLOCK SP,4.5 X 28 FDA Start: 04-19-2020 Arthroscopy, shoulder, with rotator cuff repair [place] SP,4.5 X 28 FDA Start: 04-19-2020 Arthroscopy, shoulder, with rotator cuff repair ANCHOR,5.5MM BIO CORK 2 FDA Start: 04-19-2020 Arthroscopy, shoulder, with rotator cuff repair ANCHOR,5.5MM BIO CORK 2 FDA Start: 04-19-2020 Arthroscopy, shoulder, with rotator cuff repair PUSHLOCK SP,4.5 X 28 FDA Start: 04-19-2020 Arthroscopy, shoulder, with rotator cuff repair P[place] SP,4.5 X 28 FDA Start: 04-19-2020 Arthroscopy, shoulder, with rotator cuff repair ANCHOR,5.5MM BIO CORK 2 FDA Start: 04-19-2020 Arthroscopy, shoulder, with rotator cuff repair ANCHOR,5.5MM BIO CORK 2 FDA Start: 04-19-2020 Arthroscopy, shoulder, with rotator cuff repair P[place]HLOCK SP,4.5 X 28 FDA Start: 04-19-2020 Arthroscopy, shoulder, with rotator cuff repair P[place] SP,4.5 X 28 FDA Start: 04-19-2020 Arthroscopy, shoulder, with rotator cuff repair ANCHOR,5.5MM BIO CORK 2 FDA Start: 04-19-2020 Arthroscopy, shoulder, with rotator cuff repair ANCHOR,5.5MM BIO CORK 2 FDA Start: 04-19-2020 Arthroscopy, shoulder, with rotator cuff repair PUSHLOCK SP,4.5 X 28 FDA Start: 04-19-2020 Arthroscopy, shoulder, with rotator cuff repair [place] SP,4.5 X 28 FDA Start: 04-19-2020 Arthroscopy, shoulder, with rotator cuff repair ANCHOR,5.5MM BIO CORK 2 FDA Start: 04-19-2020 Arthroscopy, shoulder, with rotator cuff repair ANCHOR,5.5MM BIO CORK 2 FDA Start: 04-19-2020 Arthroscopy, shoulder, with rotator cuff repair P[place]HLOCK SP,4.5 X 28 FDA Start: 04-19-2020 Arthroscopy, shoulder, with rotator cuff repair P[place]OCK SP,4.5 X 28 FDA Start: 04-19-2020 Arthroscopy, shoulder, with rotator cuff repair ANCHOR,5.5MM BIO CORK 2 FDA Start: 04-19-2020 Arthroscopy, shoulder, with rotator cuff repair ANCHOR,5.5MM BIO CORK 2 FDA Start: 04-19-2020 Arthroscopy, shoulder, with rotator cuff repair P[place]HLOCK SP,4.5 X 28 FDA Start: 04-19-2020 Arthroscopy, shoulder, with rotator cuff repair [place] SP,4.5 X 28 FDA Start: 04-19-2020 Arthroscopy, shoulder, with rotator cuff repair ANCHOR,5.5MM BIO CORK 2 FDA Start: 04-19-2020 Arthroscopy, shoulder, with rotator cuff repair ANCHOR,5.5MM BIO CORK 2 FDA Start: 04-19-2020 Arthroscopy, shoulder, with rotator cuff repair PUSHLOCK SP,4.5 X 28 FDA Start: 04-19-2020 Arthroscopy, shoulder, with rotator cuff repair [place] SP,4.5 X 28 FDA Start: 04-19-2020 Arthroscopy, shoulder, with rotator cuff repair ANCHOR,5.5MM BIO CORK 2 FDA Start: 04-19-2020 Arthroscopy, shoulder, with rotator cuff repair ANCHOR,5.5MM BIO CORK 2 FDA Start: 04-19-2020 Arthroscopy, shoulder, with rotator cuff repair PUSHLOCK SP,4.5 X 28 FDA Start: 04-19-2020 Arthroscopy, shoulder, with rotator cuff repair [place] SP,4.5 X 28 FDA Start: 04-19-2020 Arthroscopy, shoulder, with rotator cuff repair ANCHOR,5.5MM BIO CORK 2 FDA Start: 04-19-2020 Arthroscopy, shoulder, with rotator cuff repair ANCHOR,5.5MM BIO CORK 2 FDA Start: 04-19-2020 Arthroscopy, shoulder, with rotator cuff repair P[place]HLOCK SP,4.5 X 28 FDA Start: 04-19-2020 Arthroscopy, shoulder, with rotator cuff repair P[place]OCK SP,4.5 X 28 FDA Start: 04-19-2020 Arthroscopy, shoulder, with rotator cuff repair ANCHOR,5.5MM BIO CORK 2 FDA Start: 04-19-2020 Arthroscopy, shoulder, with rotator cuff repair ANCHOR,5.5MM BIO CORK 2 FDA Start: 04-19-2020 Arthroscopy, shoulder, with rotator cuff repair P[place] SP,4.5 X 28 FDA Start: 04-19-2020 Arthroscopy, shoulder, with rotator cuff repair [place] SP,4.5 X 28 FDA Start: 04-19-2020 Arthroscopy, shoulder, with rotator cuff repair ANCHOR,5.5MM BIO CORK 2 FDA Start: 04-19-2020 Arthroscopy, shoulder, with rotator cuff repair ANCHOR,5.5MM BIO CORK 2 FDA Start: 04-19-2020 Arthroscopy, shoulder, with rotator cuff repair P[place] SP,4.5 X 28 FDA Start: 04-19-2020 Arthroscopy, shoulder, with rotator cuff repair [place] SP,4.5 X 28 FDA Start: 04-19-2020 Arthroscopy, shoulder, with rotator cuff repair ANCHOR,5.5MM BIO CORK 2 FDA Start: 04-19-2020 Arthroscopy, shoulder, with rotator cuff repair ANCHOR,5.5MM BIO CORK 2 FDA Start: 04-19-2020 Arthroscopy, shoulder, with rotator cuff repair P[place] SP,4.5 X 28 FDA Start: 04-19-2020 Arthroscopy, shoulder, with rotator cuff repair [place] SP,4.5 X 28 FDA Start: 04-19-2020 Arthroscopy, shoulder, with rotator cuff repair ANCHOR,5.5MM BIO CORK 2 FDA Start: 04-19-2020 Arthroscopy, shoulder, with rotator cuff repair ANCHOR,5.5MM BIO CORK 2 FDA Start: 04-19-2020 Arthroscopy, shoulder, with rotator cuff repair [place] SP,4.5 X 28 FDA Start: 04-19-2020 Arthroscopy, shoulder, with rotator cuff repair [place] SP,4.5 X 28 FDA Start: 04-19-2020 Arthroscopy, shoulder, with rotator cuff repair ANCHOR,5.5MM BIO CORK 2 FDA Start: 04-19-2020 Arthroscopy, shoulder, with rotator cuff repair ANCHOR,5.5MM BIO CORK 2 FDA Start: 04-19-2020 Arthroscopy, shoulder, with rotator cuff repair [place] SP,4.5 X 28 FDA Start: 04-19-2020 Arthroscopy, shoulder, with rotator cuff repair [place] SP,4.5 X 28 FDA Start: 04-19-2020 Arthroscopy, shoulder, with rotator cuff repair ANCHOR,5.5MM BIO CORK 2 FDA Start: 04-19-2020 Arthroscopy, shoulder, with rotator cuff repair ANCHOR,5.5MM BIO CORK 2 FDA Start: 04-19-2020 Arthroscopy, shoulder, with rotator cuff repair PUSHLOCK SP,4.5 X 28 FDA Start: 04-19-2020 Arthroscopy, shoulder, with rotator cuff repair [place] SP,4.5 X 28 FDA Start: 04-19-2020 Arthroscopy, shoulder, with rotator cuff repair ANCHOR,5.5MM BIO CORK 2 FDA Start: 04-19-2020 Arthroscopy, shoulder, with rotator cuff repair ANCHOR,5.5MM BIO CORK 2 FDA Start: 04-19-2020 Arthroscopy, shoulder, with rotator cuff repair P[place]OCK SP,4.5 X 28 FDA Start: 04-19-2020 Arthroscopy, shoulder, with rotator cuff repair [place] SP,4.5 X 28 FDA Start: 04-19-2020 Arthroscopy, shoulder, with rotator cuff repair ANCHOR,5.5MM BIO CORK 2 FDA Start: 04-19-2020 Arthroscopy, shoulder, with rotator cuff repair ANCHOR,5.5MM BIO CORK 2 FDA Start: 04-19-2020 Arthroscopy, shoulder, with rotator cuff repair [place] SP,4.5 X 28 FDA Start: 04-19-2020 Arthroscopy, shoulder, with rotator cuff repair [place] SP,4.5 X 28 FDA Start: 04-19-2020 Arthroscopy, shoulder, with rotator cuff repair ANCHOR,5.5MM BIO CORK 2 FDA Start: 04-19-2020 Arthroscopy, shoulder, with rotator cuff repair ANCHOR,5.5MM BIO CORK 2 FDA Start: 04-19-2020 Arthroscopy, shoulder, with rotator cuff repair P[place]HLOCK SP,4.5 X 28 FDA Start: 04-19-2020 Arthroscopy, shoulder, with rotator cuff repair [place] SP,4.5 X 28 FDA Start: 04-19-2020 Arthroscopy, shoulder, with rotator cuff repair ANCHOR,5.5MM BIO CORK 2 FDA Start: 04-19-2020 Arthroscopy, shoulder, with rotator cuff repair ANCHOR,5.5MM BIO CORK 2 FDA Start: 04-19-2020 Arthroscopy, shoulder, with rotator cuff repair P[place]OCK SP,4.5 X 28 FDA Start: 04-19-2020 Arthroscopy, shoulder, with rotator cuff repair PUSHLOCK SP,4.5 X 28 FDA Start: 04-19-2020 Medtronic Reveal LINQ loop recorder FDA Start: 01-14-2017 Blood Sugar Diagnostic (Onetouch Ultra Test) strip Start: 08-14-2021 Lancets Start: 08-14-2021 Blood Sugar Diagnostic (Freestyle Lite Strips) strip Start: 06-20-2020 End: 06-28-2020 Blood Sugar Diagnostic (Freestyle Lite Strips) strip Start: 06-28-2020 End: 07-01-2020 Blood Sugar Diagnostic (Onetouch Ultra Test) strip Start: 04-14-2021 End: 04-24-2021 Blood Sugar Diagnostic (Onetouch Ultra Test) strip Start: 04-24-2021 End: 08-14-2021 Insulin Syringe-Needle U-100 (Bd Insulin Syringe) 0.3 mL 29 gauge x 1/2 syringe Start: 04-07-2020 End: 04-07-2020 Insulin Syringe-Needle U-100 (Bd Insulin Syringe) 0.3 mL 29 gauge x 1/2 syringe Start: 04-07-2020 End: 05-30-2020 Lancets Start: 04-10-2021 End: 04-12-2021 Lancets Start: 04-12-2021 End: 04-12-2021 Lancets Start: 04-12-2021 End: 08-14-2021 Pen Needle, Diabetic (Bd Ultra-Fine Mini Pen Needle) 31 gauge x 3/16 needle Start: 04-07-2020 End: 04-07-2020 Pen Needle, Diabetic (Bd Ultra-Fine Mini Pen Needle) 31 gauge x 3/16 needle Start: 04-07-2020 End: 05-30-2020 Medtronic Reveal LINQ loop recorder FDA Start: 01-14-2017 Blood Sugar Diagnostic (Onetouch Ultra Test) strip Start: 08-14-2021 Lancets Start: 08-14-2021 Blood Sugar Diagnostic (Freestyle Lite Strips) strip Start: 06-20-2020 End: 06-28-2020 Blood Sugar Diagnostic (Freestyle Lite Strips) strip Start: 06-28-2020 End: 07-01-2020 Blood Sugar Diagnostic (Onetouch Ultra Test) strip Start: 04-14-2021 End: 04-24-2021 Blood Sugar Diagnostic (Onetouch Ultra Test) strip Start: 04-24-2021 End: 08-14-2021 Insulin Syringe-Needle U-100 (Bd Insulin Syringe) 0.3 mL 29 gauge x 1/2 syringe Start: 04-07-2020 End: 04-07-2020 Insulin Syringe-Needle U-100 (Bd Insulin Syringe) 0.3 mL 29 gauge x 1/2 syringe Start: 04-07-2020 End: 05-30-2020 Lancets Start: 04-10-2021 End: 04-12-2021 Lancets Start: 04-12-2021 End: 04-12-2021 Lancets Start: 04-12-2021 End: 08-14-2021 Pen Needle, Diabetic (Bd Ultra-Fine Mini Pen Needle) 31 gauge x 3/16 needle Start: 04-07-2020 End: 04-07-2020 Pen Needle, Diabetic (Bd Ultra-Fine Mini Pen Needle) 31 gauge x 3/16 needle Start: 04-07-2020 End: 05-30-2020 [employer] Reveal LINQ loop recorder FDA Start: 01-14-2017 Blood Sugar Diagnostic (Contour Next Test Strips) strip Start: 03-25-2022 Blood Sugar Diagnostic (Contour Next Test Strips) strip Start: 03-25-2022 Lancets Start: 08-14-2021 Blood Sugar Diagnostic (Contour Next Test Strips) strip Start: 02-09-2022 End: 02-09-2022 Blood Sugar Diagnostic (Contour Next Test Strips) strip Start: 02-09-2022 End: 03-25-2022 Blood Sugar Diagnostic (Contour Next Test Strips) strip Start: 02-09-2022 End: 03-25-2022 Blood Sugar Diagnostic (Freestyle Lite Strips) strip Start: 06-20-2020 End: 06-28-2020 Blood Sugar Diagnostic (Freestyle Lite Strips) strip Start: 06-28-2020 End: 07-01-2020 Blood Sugar Diagnostic (Onetouch Ultra Test) strip Start: 04-14-2021 End: 04-24-2021 Blood Sugar Diagnostic (Onetouch Ultra Test) strip Start: 04-24-2021 End: 08-14-2021 Blood Sugar Diagnostic (Onetouch Ultra Test) strip Start: 08-14-2021 End: 11-15-2021 Blood Sugar Diagnostic (Onetouch Ultra Test) strip Start: 11-15-2021 End: 02-09-2022 Insulin Syringe-Needle U-100 (Bd Insulin Syringe) 0.3 mL 29 gauge x 1/2 syringe Start: 04-07-2020 End: 04-07-2020 Insulin Syringe-Needle U-100 (Bd Insulin Syringe) 0.3 mL 29 gauge x 1/2 syringe Start: 04-07-2020 End: 05-30-2020 Lancets Start: 04-10-2021 End: 04-12-2021 Lancets Start: 04-12-2021 End: 04-12-2021 Lancets Start: 04-12-2021 End: 08-14-2021 Pen Needle, Diabetic (Bd Ultra-Fine Mini Pen Needle) 31 gauge x 3/16 needle Start: 04-07-2020 End: 04-07-2020 Pen Needle, Diabetic (Bd Ultra-Fine Mini Pen Needle) 31 gauge x 3/16 needle Start: 04-07-2020 End: 05-30-2020 [employer] Reveal LINQ loop recorder FDA Start: 01-14-2017 Blood Sugar Diagnostic (Contour Next Test Strips) strip Start: 03-25-2022 Blood Sugar Diagnostic (Contour Next Test Strips) strip Start: 03-25-2022 Lancets Start: 08-14-2021 Blood Sugar Diagnostic (Contour Next Test Strips) strip Start: 02-09-2022 End: 02-09-2022 Blood Sugar Diagnostic (Contour Next Test Strips) strip Start: 02-09-2022 End: 03-25-2022 Blood Sugar Diagnostic (Contour Next Test Strips) strip Start: 02-09-2022 End: 03-25-2022 Blood Sugar Diagnostic (Freestyle Lite Strips) strip Start: 06-20-2020 End: 06-28-2020 Blood Sugar Diagnostic (Freestyle Lite Strips) strip Start: 06-28-2020 End: 07-01-2020 Blood Sugar Diagnostic (Onetouch Ultra Test) strip Start: 04-14-2021 End: 04-24-2021 Blood Sugar Diagnostic (Onetouch Ultra Test) strip Start: 04-24-2021 End: 08-14-2021 Blood Sugar Diagnostic (Onetouch Ultra Test) strip Start: 08-14-2021 End: 11-15-2021 Blood Sugar Diagnostic (Onetouch Ultra Test) strip Start: 11-15-2021 End: 02-09-2022 Insulin Syringe-Needle U-100 (Bd Insulin Syringe) 0.3 mL 29 gauge x 1/2 syringe Start: 04-07-2020 End: 04-07-2020 Insulin Syringe-Needle U-100 (Bd Insulin Syringe) 0.3 mL 29 gauge x 1/2 syringe Start: 04-07-2020 End: 05-30-2020 Lancets Start: 04-10-2021 End: 04-12-2021 Lancets Start: 04-12-2021 End: 04-12-2021 Lancets Start: 04-12-2021 End: 08-14-2021 Pen Needle, Diabetic (Bd Ultra-Fine Mini Pen Needle) 31 gauge x 3/16 needle Start: 04-07-2020 End: 04-07-2020 Pen Needle, Diabetic (Bd Ultra-Fine Mini Pen Needle) 31 gauge x 3/16 needle Start: 04-07-2020 End: 05-30-2020 [employer] Reveal LINQ loop recorder FDA Start: 01-14-2017 Blood Sugar Diagnostic (Contour Next Test Strips) strip Start: 03-25-2022 Blood Sugar Diagnostic (Contour Next Test Strips) strip Start: 03-25-2022 Lancets Start: 08-14-2021 Blood Sugar Diagnostic (Contour Next Test Strips) strip Start: 02-09-2022 End: 02-09-2022 Blood Sugar Diagnostic (Contour Next Test Strips) strip Start: 02-09-2022 End: 03-25-2022 Blood Sugar Diagnostic (Contour Next Test Strips) strip Start: 02-09-2022 End: 03-25-2022 Blood Sugar Diagnostic (Freestyle Lite Strips) strip Start: 06-20-2020 End: 06-28-2020 Blood Sugar Diagnostic (Freestyle Lite Strips) strip Start: 06-28-2020 End: 07-01-2020 Blood Sugar Diagnostic (Onetouch Ultra Test) strip Start: 04-14-2021 End: 04-24-2021 Blood Sugar Diagnostic (Onetouch Ultra Test) strip Start: 04-24-2021 End: 08-14-2021 Blood Sugar Diagnostic (Onetouch Ultra Test) strip Start: 08-14-2021 End: 11-15-2021 Blood Sugar Diagnostic (Onetouch Ultra Test) strip Start: 11-15-2021 End: 02-09-2022 Insulin Syringe-Needle U-100 (Bd Insulin Syringe) 0.3 mL 29 gauge x 1/2 syringe Start: 04-07-2020 End: 04-07-2020 Insulin Syringe-Needle U-100 (Bd Insulin Syringe) 0.3 mL 29 gauge x 1/2 syringe Start: 04-07-2020 End: 05-30-2020 Lancets Start: 04-10-2021 End: 04-12-2021 Lancets Start: 04-12-2021 End: 04-12-2021 Lancets Start: 04-12-2021 End: 08-14-2021 Pen Needle, Diabetic (Bd Ultra-Fine Mini Pen Needle) 31 gauge x 3/16 needle Start: 04-07-2020 End: 04-07-2020 Pen Needle, Diabetic (Bd Ultra-Fine Mini Pen Needle) 31 gauge x 3/16 needle Start: 04-07-2020 End: 05-30-2020 [employer] Reveal LINQ loop recorder FDA Start: 01-14-2017 Blood Sugar Diagnostic (Contour Next Test Strips) strip Start: 03-25-2022 Blood Sugar Diagnostic (Contour Next Test Strips) strip Start: 03-25-2022 Lancets Start: 08-14-2021 Blood Sugar Diagnostic (Contour Next Test Strips) strip Start: 02-09-2022 End: 02-09-2022 Blood Sugar Diagnostic (Contour Next Test Strips) strip Start: 02-09-2022 End: 03-25-2022 Blood Sugar Diagnostic (Contour Next Test Strips) strip Start: 02-09-2022 End: 03-25-2022 Blood Sugar Diagnostic (Freestyle Lite Strips) strip Start: 06-20-2020 End: 06-28-2020 Blood Sugar Diagnostic (Freestyle Lite Strips) strip Start: 06-28-2020 End: 07-01-2020 Blood Sugar Diagnostic (Onetouch Ultra Test) strip Start: 04-14-2021 End: 04-24-2021 Blood Sugar Diagnostic (Onetouch Ultra Test) strip Start: 04-24-2021 End: 08-14-2021 Blood Sugar Diagnostic (Onetouch Ultra Test) strip Start: 08-14-2021 End: 11-15-2021 Blood Sugar Diagnostic (Onetouch Ultra Test) strip Start: 11-15-2021 End: 02-09-2022 Insulin Syringe-Needle U-100 (Bd Insulin Syringe) 0.3 mL 29 gauge x 1/2 syringe Start: 04-07-2020 End: 04-07-2020 Insulin Syringe-Needle U-100 (Bd Insulin Syringe) 0.3 mL 29 gauge x 1/2 syringe Start: 04-07-2020 End: 05-30-2020 Lancets Start: 04-10-2021 End: 04-12-2021 Lancets Start: 04-12-2021 End: 04-12-2021 Lancets Start: 04-12-2021 End: 08-14-2021 Pen Needle, Diabetic (Bd Ultra-Fine Mini Pen Needle) 31 gauge x 3/16 needle Start: 04-07-2020 End: 04-07-2020 Pen Needle, Diabetic (Bd Ultra-Fine Mini Pen Needle) 31 gauge x 3/16 needle Start: 04-07-2020 End: 05-30-2020 [employer] Reveal LINQ loop recorder FDA Start: 01-14-2017 Blood Sugar Diagnostic (Contour Next Test Strips) strip Start: 03-25-2022 Blood Sugar Diagnostic (Contour Next Test Strips) strip Start: 03-25-2022 Lancets Start: 08-14-2021 Blood Sugar Diagnostic (Contour Next Test Strips) strip Start: 02-09-2022 End: 02-09-2022 Blood Sugar Diagnostic (Contour Next Test Strips) strip Start: 02-09-2022 End: 03-25-2022 Blood Sugar Diagnostic (Contour Next Test Strips) strip Start: 02-09-2022 End: 03-25-2022 Blood Sugar Diagnostic (Freestyle Lite Strips) strip Start: 06-20-2020 End: 06-28-2020 Blood Sugar Diagnostic (Freestyle Lite Strips) strip Start: 06-28-2020 End: 07-01-2020 Blood Sugar Diagnostic (Onetouch Ultra Test) strip Start: 04-14-2021 End: 04-24-2021 Blood Sugar Diagnostic (Onetouch Ultra Test) strip Start: 04-24-2021 End: 08-14-2021 Blood Sugar Diagnostic (Onetouch Ultra Test) strip Start: 08-14-2021 End: 11-15-2021 Blood Sugar Diagnostic (Onetouch Ultra Test) strip Start: 11-15-2021 End: 02-09-2022 Insulin Syringe-Needle U-100 (Bd Insulin Syringe) 0.3 mL 29 gauge x 1/2 syringe Start: 04-07-2020 End: 04-07-2020 Insulin Syringe-Needle U-100 (Bd Insulin Syringe) 0.3 mL 29 gauge x 1/2 syringe Start: 04-07-2020 End: 05-30-2020 Lancets Start: 04-10-2021 End: 04-12-2021 Lancets Start: 04-12-2021 End: 04-12-2021 Lancets Start: 04-12-2021 End: 08-14-2021 Pen Needle, Diabetic (Bd Ultra-Fine Mini Pen Needle) 31 gauge x 3/16 needle Start: 04-07-2020 End: 04-07-2020 Pen Needle, Diabetic (Bd Ultra-Fine Mini Pen Needle) 31 gauge x 3/16 needle Start: 04-07-2020 End: 05-30-2020 [employer] LINQ loop recorder FDA Start: 01-14-2017 Blood Sugar Diagnostic (Contour Next Test Strips) strip Start: 03-25-2022 Blood Sugar Diagnostic (Contour Next Test Strips) strip Start: 03-25-2022 Lancets Start: 08-14-2021 Blood Sugar Diagnostic (Contour Next Test Strips) strip Start: 02-09-2022 End: 02-09-2022 Blood Sugar Diagnostic (Contour Next Test Strips) strip Start: 02-09-2022 End: 03-25-2022 Blood Sugar Diagnostic (Contour Next Test Strips) strip Start: 02-09-2022 End: 03-25-2022 Blood Sugar Diagnostic (Freestyle Lite Strips) strip Start: 06-20-2020 End: 06-28-2020 Blood Sugar Diagnostic (Freestyle Lite Strips) strip Start: 06-28-2020 End: 07-01-2020 Blood Sugar Diagnostic (Onetouch Ultra Test) strip Start: 04-14-2021 End: 04-24-2021 Blood Sugar Diagnostic (Onetouch Ultra Test) strip Start: 04-24-2021 End: 08-14-2021 Blood Sugar Diagnostic (Onetouch Ultra Test) strip Start: 08-14-2021 End: 11-15-2021 Blood Sugar Diagnostic (Onetouch Ultra Test) strip Start: 11-15-2021 End: 02-09-2022 Insulin Syringe-Needle U-100 (Bd Insulin Syringe) 0.3 mL 29 gauge x 1/2 syringe Start: 04-07-2020 End: 04-07-2020 Insulin Syringe-Needle U-100 (Bd Insulin Syringe) 0.3 mL 29 gauge x 1/2 syringe Start: 04-07-2020 End: 05-30-2020 Lancets Start: 04-10-2021 End: 04-12-2021 Lancets Start: 04-12-2021 End: 04-12-2021 Lancets Start: 04-12-2021 End: 08-14-2021 Pen Needle, Diabetic (Bd Ultra-Fine Mini Pen Needle) 31 gauge x 3/16 needle Start: 04-07-2020 End: 04-07-2020 Pen Needle, Diabetic (Bd Ultra-Fine Mini Pen Needle) 31 gauge x 3/16 needle Start: 04-07-2020 End: 05-30-2020 [employer] LINQ loop recorder FDA Start: 01-14-2017 Blood Sugar Diagnostic (Contour Next Test Strips) strip Start: 03-25-2022 Blood Sugar Diagnostic (Contour Next Test Strips) strip Start: 08-10-2022 Lancets Start: 08-14-2021 Blood Sugar Diagnostic (Contour Next Test Strips) strip Start: 02-09-2022 End: 02-09-2022 Blood Sugar Diagnostic (Contour Next Test Strips) strip Start: 02-09-2022 End: 03-25-2022 Blood Sugar Diagnostic (Contour Next Test Strips) strip Start: 03-25-2022 End: 08-09-2022 Blood Sugar Diagnostic (Contour Next Test Strips) strip Start: 02-09-2022 End: 03-25-2022 Blood Sugar Diagnostic (Contour Next Test Strips) strip Start: 08-09-2022 End: 08-10-2022 Blood Sugar Diagnostic (Freestyle Lite Strips) strip Start: 06-20-2020 End: 06-28-2020 Blood Sugar Diagnostic (Freestyle Lite Strips) strip Start: 06-28-2020 End: 07-01-2020 Blood Sugar Diagnostic (Onetouch Ultra Test) strip Start: 04-14-2021 End: 04-24-2021 Blood Sugar Diagnostic (Onetouch Ultra Test) strip Start: 04-24-2021 End: 08-14-2021 Blood Sugar Diagnostic (Onetouch Ultra Test) strip Start: 08-14-2021 End: 11-15-2021 Blood Sugar Diagnostic (Onetouch Ultra Test) strip Start: 11-15-2021 End: 02-09-2022 Insulin Syringe-Needle U-100 (Bd Insulin Syringe) 0.3 mL 29 gauge x 1/2 syringe Start: 04-07-2020 End: 04-07-2020 Insulin Syringe-Needle U-100 (Bd Insulin Syringe) 0.3 mL 29 gauge x 1/2 syringe Start: 04-07-2020 End: 05-30-2020 Lancets Start: 04-10-2021 End: 04-12-2021 Lancets Start: 04-12-2021 End: 04-12-2021 Lancets Start: 04-12-2021 End: 08-14-2021 Pen Needle, Diabetic (Bd Ultra-Fine Mini Pen Needle) 31 gauge x 3/16 needle Start: 04-07-2020 End: 04-07-2020 Pen Needle, Diabetic (Bd Ultra-Fine Mini Pen Needle) 31 gauge x 3/16 needle Start: 04-07-2020 End: 05-30-2020 [employer] LINQ loop recorder FDA Start: 01-14-2017 Blood Sugar Diagnostic (Contour Next Test Strips) strip Start: 03-25-2022 Blood Sugar Diagnostic (Contour Next Test Strips) strip Start: 12-21-2022 Lancets Start: 08-14-2021 Blood Sugar Diagnostic (Contour Next Test Strips) strip Start: 02-09-2022 End: 02-09-2022 Blood Sugar Diagnostic (Contour Next Test Strips) strip Start: 02-09-2022 End: 03-25-2022 Blood Sugar Diagnostic (Contour Next Test Strips) strip Start: 03-25-2022 End: 08-09-2022 Blood Sugar Diagnostic (Contour Next Test Strips) strip Start: 02-09-2022 End: 03-25-2022 Blood Sugar Diagnostic (Contour Next Test Strips) strip Start: 08-09-2022 End: 08-10-2022 Blood Sugar Diagnostic (Contour Next Test Strips) strip Start: 08-10-2022 End: 12-21-2022 Blood Sugar Diagnostic (Freestyle Lite Strips) strip Start: 06-20-2020 End: 06-28-2020 Blood Sugar Diagnostic (Freestyle Lite Strips) strip Start: 06-28-2020 End: 07-01-2020 Blood Sugar Diagnostic (Onetouch Ultra Test) strip Start: 04-14-2021 End: 04-24-2021 Blood Sugar Diagnostic (Onetouch Ultra Test) strip Start: 04-24-2021 End: 08-14-2021 Blood Sugar Diagnostic (Onetouch Ultra Test) strip Start: 08-14-2021 End: 11-15-2021 Blood Sugar Diagnostic (Onetouch Ultra Test) strip Start: 11-15-2021 End: 02-09-2022 Insulin Syringe-Needle U-100 (Bd Insulin Syringe) 0.3 mL 29 gauge x 1/2 syringe Start: 04-07-2020 End: 04-07-2020 Insulin Syringe-Needle U-100 (Bd Insulin Syringe) 0.3 mL 29 gauge x 1/2 syringe Start: 04-07-2020 End: 05-30-2020 Lancets Start: 04-10-2021 End: 04-12-2021 Lancets Start: 04-12-2021 End: 04-12-2021 Lancets Start: 04-12-2021 End: 08-14-2021 Pen Needle, Diabetic (Bd Ultra-Fine Mini Pen Needle) 31 gauge x 3/16 needle Start: 04-07-2020 End: 04-07-2020 Pen Needle, Diabetic (Bd Ultra-Fine Mini Pen Needle) 31 gauge x 3/16 needle Start: 04-07-2020 End: 05-30-2020 [email or web address] LINQ loop recorder FDA Start: 01-14-2017 Blood Sugar Diagnostic (Contour Next Test Strips) strip Start: 03-25-2022 Blood Sugar Diagnostic (Contour Next Test Strips) strip Start: 12-21-2022 Lancets Start: 08-14-2021 Blood Sugar Diagnostic (Contour Next Test Strips) strip Start: 02-09-2022 End: 02-09-2022 Blood Sugar Diagnostic (Contour Next Test Strips) strip Start: 02-09-2022 End: 03-25-2022 Blood Sugar Diagnostic (Contour Next Test Strips) strip Start: 03-25-2022 End: 08-09-2022 Blood Sugar Diagnostic (Contour Next Test Strips) strip Start: 02-09-2022 End: 03-25-2022 Blood Sugar Diagnostic (Contour Next Test Strips) strip Start: 08-09-2022 End: 08-10-2022 Blood Sugar Diagnostic (Contour Next Test Strips) strip Start: 08-10-2022 End: 12-21-2022 Blood Sugar Diagnostic (Freestyle Lite Strips) strip Start: 06-20-2020 End: 06-28-2020 Blood Sugar Diagnostic (Freestyle Lite Strips) strip Start: 06-28-2020 End: 07-01-2020 Blood Sugar Diagnostic (Onetouch Ultra Test) strip Start: 04-14-2021 End: 04-24-2021 Blood Sugar Diagnostic (Onetouch Ultra Test) strip Start: 04-24-2021 End: 08-14-2021 Blood Sugar Diagnostic (Onetouch Ultra Test) strip Start: 08-14-2021 End: 11-15-2021 Blood Sugar Diagnostic (Onetouch Ultra Test) strip Start: 11-15-2021 End: 02-09-2022 Insulin Syringe-Needle U-100 (Bd Insulin Syringe) 0.3 mL 29 gauge x 1/2 syringe Start: 04-07-2020 End: 04-07-2020 Insulin Syringe-Needle U-100 (Bd Insulin Syringe) 0.3 mL 29 gauge x 1/2 syringe Start: 04-07-2020 End: 05-30-2020 Lancets Start: 04-10-2021 End: 04-12-2021 Lancets Start: 04-12-2021 End: 04-12-2021 Lancets Start: 04-12-2021 End: 08-14-2021 Pen Needle, Diabetic (Bd Ultra-Fine Mini Pen Needle) 31 gauge x 3/16 needle Start: 04-07-2020 End: 04-07-2020 Pen Needle, Diabetic (Bd Ultra-Fine Mini Pen Needle) 31 gauge x 3/16 needle Start: 04-07-2020 End: 05-30-2020 [employer] LIN[employer] loop recorder FDA Start: 01-14-2017 Blood Sugar Diagnostic (Contour Next Test Strips) strip Start: 03-25-2022 Blood Sugar Diagnostic (Contour Next Test Strips) strip Start: 12-21-2022 Lancets Start: 08-14-2021 Blood Sugar Diagnostic (Contour Next Test Strips) strip Start: 02-09-2022 End: 02-09-2022 Blood Sugar Diagnostic (Contour Next Test Strips) strip Start: 02-09-2022 End: 03-25-2022 Blood Sugar Diagnostic (Contour Next Test Strips) strip Start: 03-25-2022 End: 08-09-2022 Blood Sugar Diagnostic (Contour Next Test Strips) strip Start: 02-09-2022 End: 03-25-2022 Blood Sugar Diagnostic (Contour Next Test Strips) strip Start: 08-09-2022 End: 08-10-2022 Blood Sugar Diagnostic (Contour Next Test Strips) strip Start: 08-10-2022 End: 12-21-2022 Blood Sugar Diagnostic (Freestyle Lite Strips) strip Start: 06-20-2020 End: 06-28-2020 Blood Sugar Diagnostic (Freestyle Lite Strips) strip Start: 06-28-2020 End: 07-01-2020 Blood Sugar Diagnostic (Onetouch Ultra Test) strip Start: 04-14-2021 End: 04-24-2021 Blood Sugar Diagnostic (Onetouch Ultra Test) strip Start: 04-24-2021 End: 08-14-2021 Blood Sugar Diagnostic (Onetouch Ultra Test) strip Start: 08-14-2021 End: 11-15-2021 Blood Sugar Diagnostic (Onetouch Ultra Test) strip Start: 11-15-2021 End: 02-09-2022 Insulin Syringe-Needle U-100 (Bd Insulin Syringe) 0.3 mL 29 gauge x 1/2 syringe Start: 04-07-2020 End: 04-07-2020 Insulin Syringe-Needle U-100 (Bd Insulin Syringe) 0.3 mL 29 gauge x 1/2 syringe Start: 04-07-2020 End: 05-30-2020 Lancets Start: 04-10-2021 End: 04-12-2021 Lancets Start: 04-12-2021 End: 04-12-2021 Lancets Start: 04-12-2021 End: 08-14-2021 Pen Needle, Diabetic (Bd Ultra-Fine Mini Pen Needle) 31 gauge x 3/16 needle Start: 04-07-2020 End: 04-07-2020 Pen Needle, Diabetic (Bd Ultra-Fine Mini Pen Needle) 31 gauge x 3/16 needle Start: 04-07-2020 End: 05-30-2020 [email or web address] LINQ loop recorder FDA Start: 01-14-2017 Blood Sugar Diagnostic (Contour Next Test Strips) strip Start: 03-25-2022 Blood Sugar Diagnostic (Contour Next Test Strips) strip Start: 06-24-2023 Lancets Start: 08-14-2021 Blood Sugar Diagnostic (Contour Next Test Strips) strip Start: 02-09-2022 End: 02-09-2022 Blood Sugar Diagnostic (Contour Next Test Strips) strip Start: 02-09-2022 End: 03-25-2022 Blood Sugar Diagnostic (Contour Next Test Strips) strip Start: 03-25-2022 End: 08-09-2022 Blood Sugar Diagnostic (Contour Next Test Strips) strip Start: 02-09-2022 End: 03-25-2022 Blood Sugar Diagnostic (Contour Next Test Strips) strip Start: 08-09-2022 End: 08-10-2022 Blood Sugar Diagnostic (Contour Next Test Strips) strip Start: 08-10-2022 End: 12-21-2022 Blood Sugar Diagnostic (Contour Next Test Strips) strip Start: 12-21-2022 End: 06-24-2023 Blood Sugar Diagnostic (Freestyle Lite Strips) strip Start: 06-20-2020 End: 06-28-2020 Blood Sugar Diagnostic (Freestyle Lite Strips) strip Start: 06-28-2020 End: 07-01-2020 Blood Sugar Diagnostic (Onetouch Ultra Test) strip Start: 04-14-2021 End: 04-24-2021 Blood Sugar Diagnostic (Onetouch Ultra Test) strip Start: 04-24-2021 End: 08-14-2021 Blood Sugar Diagnostic (Onetouch Ultra Test) strip Start: 08-14-2021 End: 11-15-2021 Blood Sugar Diagnostic (Onetouch Ultra Test) strip Start: 11-15-2021 End: 02-09-2022 Insulin Syringe-Needle U-100 (Bd Insulin Syringe) 0.3 mL 29 gauge x 1/2 syringe Start: 04-07-2020 End: 04-07-2020 Insulin Syringe-Needle U-100 (Bd Insulin Syringe) 0.3 mL 29 gauge x 1/2 syringe Start: 04-07-2020 End: 05-30-2020 Lancets Start: 04-10-2021 End: 04-12-2021 Lancets Start: 04-12-2021 End: 04-12-2021 Lancets Start: 04-12-2021 End: 08-14-2021 Pen Needle, Diabetic (Bd Ultra-Fine Mini Pen Needle) 31 gauge x 3/16 needle Start: 04-07-2020 End: 04-07-2020 Pen Needle, Diabetic (Bd Ultra-Fine Mini Pen Needle) 31 gauge x 3/16 needle Start: 04-07-2020 End: 05-30-2020 [email or web address] LINQ loop recorder FDA Start: 01-14-2017 Blood Sugar Diagnostic (Contour Next Test Strips) strip Start: 03-25-2022 Blood Sugar Diagnostic (Contour Next Test Strips) strip Start: 06-24-2023 Lancets Start: 08-14-2021 Blood Sugar Diagnostic (Contour Next Test Strips) strip Start: 02-09-2022 End: 02-09-2022 Blood Sugar Diagnostic (Contour Next Test Strips) strip Start: 02-09-2022 End: 03-25-2022 Blood Sugar Diagnostic (Contour Next Test Strips) strip Start: 03-25-2022 End: 08-09-2022 Blood Sugar Diagnostic (Contour Next Test Strips) strip Start: 02-09-2022 End: 03-25-2022 Blood Sugar Diagnostic (Contour Next Test Strips) strip Start: 08-09-2022 End: 08-10-2022 Blood Sugar Diagnostic (Contour Next Test Strips) strip Start: 08-10-2022 End: 12-21-2022 Blood Sugar Diagnostic (Contour Next Test Strips) strip Start: 12-21-2022 End: 06-24-2023 Blood Sugar Diagnostic (Freestyle Lite Strips) strip Start: 06-20-2020 End: 06-28-2020 Blood Sugar Diagnostic (Freestyle Lite Strips) strip Start: 06-28-2020 End: 07-01-2020 Blood Sugar Diagnostic (Onetouch Ultra Test) strip Start: 04-14-2021 End: 04-24-2021 Blood Sugar Diagnostic (Onetouch Ultra Test) strip Start: 04-24-2021 End: 08-14-2021 Blood Sugar Diagnostic (Onetouch Ultra Test) strip Start: 08-14-2021 End: 11-15-2021 Blood Sugar Diagnostic (Onetouch Ultra Test) strip Start: 11-15-2021 End: 02-09-2022 Insulin Syringe-Needle U-100 (Bd Insulin Syringe) 0.3 mL 29 gauge x 1/2 syringe Start: 04-07-2020 End: 04-07-2020 Insulin Syringe-Needle U-100 (Bd Insulin Syringe) 0.3 mL 29 gauge x 1/2 syringe Start: 04-07-2020 End: 05-30-2020 Lancets Start: 04-10-2021 End: 04-12-2021 Lancets Start: 04-12-2021 End: 04-12-2021 Lancets Start: 04-12-2021 End: 08-14-2021 Pen Needle, Diabetic (Bd Ultra-Fine Mini Pen Needle) 31 gauge x 3/16 needle Start: 04-07-2020 End: 04-07-2020 Pen Needle, Diabetic (Bd Ultra-Fine Mini Pen Needle) 31 gauge x 3/16 needle Start: 04-07-2020 End: 05-30-2020 [employer] LIN[employer] loop recorder FDA Start: 01-14-2017 Blood Sugar Diagnostic (Contour Next Test Strips) strip Start: 03-25-2022 [place] [facility] [place] 08-14-2021 Blood Sugar Diagnostic (Contour Next Test Strips) strip Start: 02-09-2022 End: 02-09-2022 Blood Sugar Diagnostic (Contour Next Test Strips) strip Start: 02-09-2022 End: 03-25-2022 Blood Sugar Diagnostic (Contour Next Test Strips) strip Start: 03-25-2022 End: 08-09-2022 Blood Sugar Diagnostic (Contour Next Test Strips) strip Start: 02-09-2022 End: 03-25-2022 Blood Sugar Diagnostic (Contour Next Test Strips) strip Start: 08-09-2022 End: 08-10-2022 Blood Sugar Diagnostic (Contour Next Test Strips) strip Start: 08-10-2022 End: 12-21-2022 Blood Sugar Diagnostic (Contour Next Test Strips) strip Start: 12-21-2022 End: 06-24-2023 Blood Sugar Diagnostic (Contour Next Test Strips) strip Start: 06-24-2023 End: 01-09-2024 Blood Sugar Diagnostic (Contour Next Test Strips) strip Start: 01-09-2024 End: 06-25-2024 Blood Sugar Diagnostic (Freestyle Lite Strips) strip Start: 06-20-2020 End: 06-28-2020 Blood Sugar Diagnostic (Freestyle Lite Strips) strip Start: 06-28-2020 End: 07-01-2020 Blood Sugar Diagnostic (Onetouch Ultra Test) strip Start: 04-14-2021 End: 04-24-2021 Blood Sugar Diagnostic (Onetouch Ultra Test) strip Start: 04-24-2021 End: 08-14-2021 Blood Sugar Diagnostic (Onetouch Ultra Test) strip Start: 08-14-2021 End: 11-15-2021 Blood Sugar Diagnostic (Onetouch Ultra Test) strip Start: 11-15-2021 End: 02-09-2022 Insulin Syringe-Needle U-100 (Bd Insulin Syringe) 0.3 mL 29 gauge x 1/2 syringe Start: 04-07-2020 End: 04-07-2020 Insulin Syringe-Needle U-100 (Bd Insulin Syringe) 0.3 mL 29 gauge x 1/2 syringe Start: 04-07-2020 End: 05-30-2020 Lancets misc Start: 04-10-2021 End: 04-12-2021 Lancets misc Start: 04-12-2021 End: 04-12-2021 Lancets misc Start: 04-12-2021 End: 08-14-2021 Pen Needle, Diabetic (Bd Ultra-Fine Mini Pen Needle) 31 gauge x 3/16 needle Start: 04-07-2020 End: 04-07-2020 Pen Needle, Diabetic (Bd Ultra-Fine Mini Pen Needle) 31 gauge x 3/16 needle Start: 04-07-2020 End: 05-30-2020 [email or web address] LINQ loop recorder FDA Start: 01-14-2017 Blood Sugar Diagnostic (Contour Next Test Strips) strip Start: 03-25-2022 Lancets misc Start: 08-14-2021 Blood Sugar Diagnostic (Contour Next Test Strips) strip Start: 02-09-2022 End: 02-09-2022 Blood Sugar Diagnostic (Contour Next Test Strips) strip Start: 02-09-2022 End: 03-25-2022 Blood Sugar Diagnostic (Contour Next Test Strips) strip Start: 03-25-2022 End: 08-09-2022 Blood Sugar Diagnostic (Contour Next Test Strips) strip Start: 02-09-2022 End: 03-25-2022 Blood Sugar Diagnostic (Contour Next Test Strips) strip Start: 08-09-2022 End: 08-10-2022 Blood Sugar Diagnostic (Contour Next Test Strips) strip Start: 08-10-2022 End: 12-21-2022 Blood Sugar Diagnostic (Contour Next Test Strips) strip Start: 12-21-2022 End: 06-24-2023 Blood Sugar Diagnostic (Contour Next Test Strips) strip Start: 06-24-2023 End: 01-09-2024 Blood Sugar Diagnostic (Contour Next Test Strips) strip Start: 01-09-2024 End: 06-25-2024 Blood Sugar Diagnostic (Freestyle Lite Strips) strip Start: 06-20-2020 End: 06-28-2020 Blood Sugar Diagnostic (Freestyle Lite Strips) strip Start: 06-28-2020 End: 07-01-2020 Blood Sugar Diagnostic (Onetouch Ultra Test) strip Start: 04-14-2021 End: 04-24-2021 Blood Sugar Diagnostic (Onetouch Ultra Test) strip Start: 04-24-2021 End: 08-14-2021 Blood Sugar Diagnostic (Onetouch Ultra Test) strip Start: 08-14-2021 End: 11-15-2021 Blood Sugar Diagnostic (Onetouch Ultra Test) strip Start: 11-15-2021 End: 02-09-2022 Insulin Syringe-Needle U-100 (Bd Insulin Syringe) 0.3 mL 29 gauge x 1/2 syringe Start: 04-07-2020 End: 04-07-2020 Insulin Syringe-Needle U-100 (Bd Insulin Syringe) 0.3 mL 29 gauge x 1/2 syringe Start: 04-07-2020 End: 05-30-2020 Lancets misc Start: 04-10-2021 End: 04-12-2021 Lancets misc Start: 04-12-2021 End: 04-12-2021 [place] [facility] [place]: 04-12-2021 End: 08-14-2021 Pen Needle, Diabetic (Bd Ultra-Fine Mini Pen Needle) 31 gauge x 3/16 needle Start: 04-07-2020 End: 04-07-2020 Pen Needle, Diabetic (Bd Ultra-Fine Mini Pen Needle) 31 gauge x 3/16 needle Start: 04-07-2020 End: 05-30-2020 [email or web address] LINQ loop recorder FDA Start: 01-14-2017 Blood Sugar Diagnostic (Contour Next Test Strips) strip Start: 03-25-2022 [facility] Start: 08-14-2021 Blood Sugar Diagnostic (Contour Next Test Strips) strip Start: 02-09-2022 End: 02-09-2022 Blood Sugar Diagnostic (Contour Next Test Strips) strip Start: 02-09-2022 End: 03-25-2022 Blood Sugar Diagnostic (Contour Next Test Strips) strip Start: 03-25-2022 End: 08-09-2022 Blood Sugar Diagnostic (Contour Next Test Strips) strip Start: 02-09-2022 End: 03-25-2022 Blood Sugar Diagnostic (Contour Next Test Strips) strip Start: 08-09-2022 End: 08-10-2022 Blood Sugar Diagnostic (Contour Next Test Strips) strip Start: 08-10-2022 End: 12-21-2022 Blood Sugar Diagnostic (Contour Next Test Strips) strip Start: 12-21-2022 End: 06-24-2023 Blood Sugar Diagnostic (Contour Next Test Strips) strip Start: 06-24-2023 End: 01-09-2024 Blood Sugar Diagnostic (Contour Next Test Strips) strip Start: 01-09-2024 End: 06-25-2024 Blood Sugar Diagnostic (Freestyle Lite Strips) strip Start: 06-20-2020 End: 06-28-2020 Blood Sugar Diagnostic (Freestyle Lite Strips) strip Start: 06-28-2020 End: 07-01-2020 Blood Sugar Diagnostic (Onetouch Ultra Test) strip Start: 04-14-2021 End: 04-24-2021 Blood Sugar Diagnostic (Onetouch Ultra Test) strip Start: 04-24-2021 End: 08-14-2021 Blood Sugar Diagnostic (Onetouch Ultra Test) strip Start: 08-14-2021 End: 11-15-2021 Blood Sugar Diagnostic (Onetouch Ultra Test) strip Start: 11-15-2021 End: 02-09-2022 Insulin Syringe-Needle U-100 (Bd Insulin Syringe) 0.3 mL 29 gauge x 1/2 syringe Start: 04-07-2020 End: 04-07-2020 Insulin Syringe-Needle U-100 (Bd Insulin Syringe) 0.3 mL 29 gauge x 1/2 syringe Start: 04-07-2020 End: 05-30-2020 Lancets misc Start: 04-10-2021 End: 04-12-2021 Lancets misc Start: 04-12-2021 End: 04-12-2021 Lancets misc Start: 04-12-2021 End: 08-14-2021 Pen Needle, Diabetic (Bd Ultra-Fine Mini Pen Needle) 31 gauge x 3/16 needle Start: 04-07-2020 End: 04-07-2020 Pen Needle, Diabetic (Bd Ultra-Fine Mini Pen Needle) 31 gauge x 3/16 needle Start: 04-07-2020 End: 05-30-2020 [email or web address] LINQ loop recorder FDA Start: 01-14-2017 Blood Sugar Diagnostic (Contour Next Test Strips) strip Start: 03-25-2022 Lancets misc Start: 08-14-2021 Blood Sugar Diagnostic (Contour Next Test Strips) strip Start: 02-09-2022 End: 02-09-2022 Blood Sugar Diagnostic (Contour Next Test Strips) strip Start: 02-09-2022 End: 03-25-2022 Blood Sugar Diagnostic (Contour Next Test Strips) strip Start: 03-25-2022 End: 08-09-2022 Blood Sugar Diagnostic (Contour Next Test Strips) strip Start: 02-09-2022 End: 03-25-2022 Blood Sugar Diagnostic (Contour Next Test Strips) strip Start: 08-09-2022 End: 08-10-2022 Blood Sugar Diagnostic (Contour Next Test Strips) strip Start: 08-10-2022 End: 12-21-2022 Blood Sugar Diagnostic (Contour Next Test Strips) strip Start: 12-21-2022 End: 06-24-2023 Blood Sugar Diagnostic (Contour Next Test Strips) strip Start: 06-24-2023 End: 01-09-2024 Blood Sugar Diagnostic (Contour Next Test Strips) strip Start: 01-09-2024 End: 06-25-2024 Blood Sugar Diagnostic (Freestyle Lite Strips) strip Start: 06-20-2020 End: 06-28-2020 Blood Sugar Diagnostic (Freestyle Lite Strips) strip Start: 06-28-2020 End: 07-01-2020 Blood Sugar Diagnostic (Onetouch Ultra Test) strip Start: 04-14-2021 End: 04-24-2021 Blood Sugar Diagnostic (Onetouch Ultra Test) strip Start: 04-24-2021 End: 08-14-2021 Blood Sugar Diagnostic (Onetouch Ultra Test) strip Start: 08-14-2021 End: 11-15-2021 Blood Sugar Diagnostic (Onetouch Ultra Test) strip Start: 11-15-2021 End: 02-09-2022 Insulin Syringe-Needle U-100 (Bd Insulin Syringe) 0.3 mL 29 gauge x 1/2 syringe Start: 04-07-2020 End: 04-07-2020 Insulin Syringe-Needle U-100 (Bd Insulin Syringe) 0.3 mL 29 gauge x 1/2 syringe Start: 04-07-2020 End: 05-30-2020 Lancets misc Start: 04-10-2021 End: 04-12-2021 Lancets misc Start: 04-12-2021 End: 04-12-2021 Lancets misc Start: 04-12-2021 End: 08-14-2021 Pen Needle, Diabetic (Bd Ultra-Fine Mini Pen Needle) 31 gauge x 3/16 needle Start: 04-07-2020 End: 04-07-2020 Pen Needle, Diabetic (Bd Ultra-Fine Mini Pen Needle) 31 gauge x 3/16 needle Start: 04-07-2020 End: 05-30-2020 [employer] LINQ loop recorder FDA Start: 01-14-2017 Blood Sugar Diagnostic (Contour Next Test Strips) strip Start: 03-25-2022 Lancets misc Start: 08-14-2021 Blood Sugar Diagnostic (Contour Next Test Strips) strip Start: 02-09-2022 End: 02-09-2022 Blood Sugar Diagnostic (Contour Next Test Strips) strip Start: 02-09-2022 End: 03-25-2022 Blood Sugar Diagnostic (Contour Next Test Strips) strip Start: 03-25-2022 End: 08-09-2022 Blood Sugar Diagnostic (Contour Next Test Strips) strip Start: 02-09-2022 End: 03-25-2022 Blood Sugar Diagnostic (Contour Next Test Strips) strip Start: 08-09-2022 End: 08-10-2022 Blood Sugar Diagnostic (Contour Next Test Strips) strip Start: 08-10-2022 End: 12-21-2022 Blood Sugar Diagnostic (Contour Next Test Strips) strip Start: 12-21-2022 End: 06-24-2023 Blood Sugar Diagnostic (Contour Next Test Strips) strip Start: 06-24-2023 End: 01-09-2024 Blood Sugar Diagnostic (Contour Next Test Strips) strip Start: 01-09-2024 End: 06-25-2024 Blood Sugar Diagnostic (Freestyle Lite Strips) strip Start: 06-20-2020 End: 06-28-2020 Blood Sugar Diagnostic (Freestyle Lite Strips) strip Start: 06-28-2020 End: 07-01-2020 Blood Sugar Diagnostic (Onetouch Ultra Test) strip Start: 04-14-2021 End: 04-24-2021 Blood Sugar Diagnostic (Onetouch Ultra Test) strip Start: 04-24-2021 End: 08-14-2021 Blood Sugar Diagnostic (Onetouch Ultra Test) strip Start: 08-14-2021 End: 11-15-2021 Blood Sugar Diagnostic (Onetouch Ultra Test) strip Start: 11-15-2021 End: 02-09-2022 Insulin Syringe-Needle U-100 (Bd Insulin Syringe) 0.3 mL 29 gauge x 1/2 syringe Start: 04-07-2020 End: 04-07-2020 Insulin Syringe-Needle U-100 (Bd Insulin Syringe) 0.3 mL 29 gauge x 1/2 syringe Start: 04-07-2020 End: 05-30-2020 Lancets misc Start: 04-10-2021 End: 04-12-2021 Lancets misc Start: 04-12-2021 End: 04-12-2021 Lancets misc Start: 04-12-2021 End: 08-14-2021 Pen Needle, Diabetic (Bd Ultra-Fine Mini Pen Needle) 31 gauge x 3/16 needle Start: 04-07-2020 End: 04-07-2020 Pen Needle, Diabetic (Bd Ultra-Fine Mini Pen Needle) 31 gauge x 3/16 needle Start: 04-07-2020 End: 05-30-2020 [employer] LINQ loop recorder FDA Start: 01-14-2017 Blood Sugar Diagnostic (Contour Next Test Strips) strip Start: 03-25-2022 Lancets misc Start: 08-14-2021 Blood Sugar Diagnostic (Contour Next Test Strips) strip Start: 02-09-2022 End: 02-09-2022 Blood Sugar Diagnostic (Contour Next Test Strips) strip Start: 02-09-2022 End: 03-25-2022 Blood Sugar Diagnostic (Contour Next Test Strips) strip Start: 03-25-2022 End: 08-09-2022 Blood Sugar Diagnostic (Contour Next Test Strips) strip Start: 02-09-2022 End: 03-25-2022 Blood Sugar Diagnostic (Contour Next Test Strips) strip Start: 08-09-2022 End: 08-10-2022 Blood Sugar Diagnostic (Contour Next Test Strips) strip Start: 08-10-2022 End: 12-21-2022 Blood Sugar Diagnostic (Contour Next Test Strips) strip Start: 12-21-2022 End: 06-24-2023 Blood Sugar Diagnostic (Contour Next Test Strips) strip Start: 06-24-2023 End: 01-09-2024 Blood Sugar Diagnostic (Contour Next Test Strips) strip Start: 01-09-2024 End: 06-25-2024 Blood Sugar Diagnostic (Freestyle Lite Strips) strip Start: 06-20-2020 End: 06-28-2020 Blood Sugar Diagnostic (Freestyle Lite Strips) strip Start: 06-28-2020 End: 07-01-2020 Blood Sugar Diagnostic (Onetouch Ultra Test) strip Start: 04-14-2021 End: 04-24-2021 Blood Sugar Diagnostic (Onetouch Ultra Test) strip Start: 04-24-2021 End: 08-14-2021 Blood Sugar Diagnostic (Onetouch Ultra Test) strip Start: 08-14-2021 End: 11-15-2021 Blood Sugar Diagnostic (Onetouch Ultra Test) strip Start: 11-15-2021 End: 02-09-2022 Insulin Syringe-Needle U-100 (Bd Insulin Syringe) 0.3 mL 29 gauge x 1/2 syringe Start: 04-07-2020 End: 04-07-2020 Insulin Syringe-Needle U-100 (Bd Insulin Syringe) 0.3 mL 29 gauge x 1/2 syringe Start: 04-07-2020 End: 05-30-2020 Lancets misc Start: 04-10-2021 End: 04-12-2021 Lancets misc Start: 04-12-2021 End: 04-12-2021 Lancets misc Start: 04-12-2021 End: 08-14-2021 Pen Needle, Diabetic (Bd Ultra-Fine Mini Pen Needle) 31 gauge x 3/16 needle Start: 04-07-2020 End: 04-07-2020 Pen Needle, Diabetic (Bd Ultra-Fine Mini Pen Needle) 31 gauge x 3/16 needle Start: 04-07-2020 End: 05-30-2020 [email or web address] LINQ loop recorder FDA Start: 01-14-2017 Blood Sugar Diagnostic (Contour Next Test Strips) strip Start: 10-01-2024 [facility] Start: 08-14-2021 Blood Sugar Diagnostic (Contour Next Test Strips) strip Start: 02-09-2022 End: 02-09-2022 Blood Sugar Diagnostic (Contour Next Test Strips) strip Start: 02-09-2022 End: 03-25-2022 Blood Sugar Diagnostic (Contour Next Test Strips) strip Start: 03-25-2022 End: 08-09-2022 Blood Sugar Diagnostic (Contour Next Test Strips) strip Start: 03-25-2022 End: 09-30-2024 Blood Sugar Diagnostic (Contour Next Test Strips) strip Start: 02-09-2022 End: 03-25-2022 Blood Sugar Diagnostic (Contour Next Test Strips) strip Start: 08-09-2022 End: 08-10-2022 Blood Sugar Diagnostic (Contour Next Test Strips) strip Start: 08-10-2022 End: 12-21-2022 Blood Sugar Diagnostic (Contour Next Test Strips) strip Start: 12-21-2022 End: 06-24-2023 Blood Sugar Diagnostic (Contour Next Test Strips) strip Start: 06-24-2023 End: 01-09-2024 Blood Sugar Diagnostic (Contour Next Test Strips) strip Start: 01-09-2024 End: 06-25-2024 Blood Sugar Diagnostic (Contour Next Test Strips) strip Start: 09-30-2024 End: 09-30-2024 Blood Sugar Diagnostic (Contour Next Test Strips) strip Start: 09-30-2024 End: 10-01-2024 Blood Sugar Diagnostic (Freestyle Lite Strips) strip Start: 06-20-2020 End: 06-28-2020 Blood Sugar Diagnostic (Freestyle Lite Strips) strip Start: 06-28-2020 End: 07-01-2020 Blood Sugar Diagnostic (Onetouch Ultra Test) strip Start: 04-14-2021 End: 04-24-2021 Blood Sugar Diagnostic (Onetouch Ultra Test) strip Start: 04-24-2021 End: 08-14-2021 Blood Sugar Diagnostic (Onetouch Ultra Test) strip Start: 08-14-2021 End: 11-15-2021 Blood Sugar Diagnostic (Onetouch Ultra Test) strip Start: 11-15-2021 End: 02-09-2022 Insulin Syringe-Needle U-100 (Bd Insulin Syringe) 0.3 mL 29 gauge x 1/2 syringe Start: 04-07-2020 End: 04-07-2020 Insulin Syringe-Needle U-100 (Bd Insulin Syringe) 0.3 mL 29 gauge x 1/2 syringe Start: 04-07-2020 End: 05-30-2020 Lancets misc Start: 04-10-2021 End: 04-12-2021 Lancets misc Start: 04-12-2021 End: 04-12-2021 Lancets misc Start: 04-12-2021 End: 08-14-2021 Pen Needle, Diabetic (Bd Ultra-Fine Mini Pen Needle) 31 gauge x 3/16 needle Start: 04-07-2020 End: 04-07-2020 Pen Needle, Diabetic (Bd Ultra-Fine Mini Pen Needle) 31 gauge x 3/16 needle Start: 04-07-2020 End: 05-30-2020 [employer] LINQ loop recorder FDA Start: 01-14-2017 Blood Sugar Diagnostic (Contour Next Test Strips) strip Start: 10-01-2024 Lancets misc Start: 08-14-2021 Blood Sugar Diagnostic (Contour Next Test Strips) strip Start: 02-09-2022 End: 02-09-2022 Blood Sugar Diagnostic (Contour Next Test Strips) strip Start: 02-09-2022 End: 03-25-2022 Blood Sugar Diagnostic (Contour Next Test Strips) strip Start: 03-25-2022 End: 08-09-2022 Blood Sugar Diagnostic (Contour Next Test Strips) strip Start: 03-25-2022 End: 09-30-2024 Blood Sugar Diagnostic (Contour Next Test Strips) strip Start: 02-09-2022 End: 03-25-2022 Blood Sugar Diagnostic (Contour Next Test Strips) strip Start: 08-09-2022 End: 08-10-2022 Blood Sugar Diagnostic (Contour Next Test Strips) strip Start: 08-10-2022 End: 12-21-2022 Blood Sugar Diagnostic (Contour Next Test Strips) strip Start: 12-21-2022 End: 06-24-2023 Blood Sugar Diagnostic (Contour Next Test Strips) strip Start: 06-24-2023 End: 01-09-2024 Blood Sugar Diagnostic (Contour Next Test Strips) strip Start: 01-09-2024 End: 06-25-2024 Blood Sugar Diagnostic (Contour Next Test Strips) strip Start: 09-30-2024 End: 09-30-2024 Blood Sugar Diagnostic (Contour Next Test Strips) strip Start: 09-30-2024 End: 10-01-2024 Blood Sugar Diagnostic (Freestyle Lite Strips) strip Start: 06-20-2020 End: 06-28-2020 Blood Sugar Diagnostic (Freestyle Lite Strips) strip Start: 06-28-2020 End: 07-01-2020 Blood Sugar Diagnostic (Onetouch Ultra Test) strip Start: 04-14-2021 End: 04-24-2021 Blood Sugar Diagnostic (Onetouch Ultra Test) strip Start: 04-24-2021 End: 08-14-2021 Blood Sugar Diagnostic (Onetouch Ultra Test) strip Start: 08-14-2021 End: 11-15-2021 Blood Sugar Diagnostic (Onetouch Ultra Test) strip Start: 11-15-2021 End: 02-09-2022 Insulin Syringe-Needle U-100 (Bd Insulin Syringe) 0.3 mL 29 gauge x 1/2 syringe Start: 04-07-2020 End: 04-07-2020 Insulin Syringe-Needle U-100 (Bd Insulin Syringe) 0.3 mL 29 gauge x 1/2 syringe Start: 04-07-2020 End: 05-30-2020 Lancets misc Start: 04-10-2021 End: 04-12-2021 Lancets misc Start: 04-12-2021 End: 04-12-2021 Lancets misc Start: 04-12-2021 End: 08-14-2021 Pen Needle, Diabetic (Bd Ultra-Fine Mini Pen Needle) 31 gauge x 3/16 needle Start: 04-07-2020 End: 04-07-2020 Pen Needle, Diabetic (Bd Ultra-Fine Mini Pen Needle) 31 gauge x 3/16 needle Start: 04-07-2020 End: 05-30-2020 [email or web address] LINQ loop recorder FDA Start: 01-14-2017 Blood Sugar Diagnostic (Contour Next Test Strips) strip Start: 10-01-2024 Lancets misc Start: 08-14-2021 Blood Sugar Diagnostic (Contour Next Test Strips) strip Start: 02-09-2022 End: 02-09-2022 Blood Sugar Diagnostic (Contour Next Test Strips) strip Start: 02-09-2022 End: 03-25-2022 Blood Sugar Diagnostic (Contour Next Test Strips) strip Start: 03-25-2022 End: 08-09-2022 Blood Sugar Diagnostic (Contour Next Test Strips) strip Start: 03-25-2022 End: 09-30-2024 Blood Sugar Diagnostic (Contour Next Test Strips) strip Start: 02-09-2022 End: 03-25-2022 Blood Sugar Diagnostic (Contour Next Test Strips) strip Start: 08-09-2022 End: 08-10-2022 Blood Sugar Diagnostic (Contour Next Test Strips) strip Start: 08-10-2022 End: 12-21-2022 Blood Sugar Diagnostic (Contour Next Test Strips) strip Start: 12-21-2022 End: 06-24-2023 Blood Sugar Diagnostic (Contour Next Test Strips) strip Start: 06-24-2023 End: 01-09-2024 Blood Sugar Diagnostic (Contour Next Test Strips) strip Start: 01-09-2024 End: 06-25-2024 Blood Sugar Diagnostic (Contour Next Test Strips) strip Start: 09-30-2024 End: 09-30-2024 Blood Sugar Diagnostic (Contour Next Test Strips) strip Start: 09-30-2024 End: 06-05-2025 Blood Sugar Diagnostic (Freestyle Lite Strips) strip Start: 06-20-2020 End: 06-28-2020 Blood Sugar Diagnostic (Freestyle Lite Strips) strip Start: 06-28-2020 End: 07-01-2020 Blood Sugar Diagnostic (Onetouch Ultra Test) strip Start: 04-14-2021 End: 04-24-2021 Blood Sugar Diagnostic (Onetouch Ultra Test) strip Start: 04-24-2021 End: 08-14-2021 Blood Sugar Diagnostic (Onetouch Ultra Test) strip Start: 08-14-2021 End: 11-15-2021 Blood Sugar Diagnostic (Onetouch Ultra Test) strip Start: 11-15-2021 End: 02-09-2022 Insulin Syringe-Needle U-100 (Bd Insulin Syringe) 0.3 mL 29 gauge x 1/2 syringe Start: 04-07-2020 End: 04-07-2020 Insulin Syringe-Needle U-100 (Bd Insulin Syringe) 0.3 mL 29 gauge x 1/2 syringe Start: 04-07-2020 End: 05-30-2020 Lancets misc Start: 04-10-2021 End: 04-12-2021 Lancets misc Start: 04-12-2021 End: 04-12-2021 Lancets misc Start: 04-12-2021 End: 08-14-2021 Pen Needle, Diabetic (Bd Ultra-Fine Mini Pen Needle) 31 gauge x 3/16 needle Start: 04-07-2020 End: 04-07-2020 Pen Needle, Diabetic (Bd Ultra-Fine Mini Pen Needle) 31 gauge x 3/16 needle Start: 04-07-2020 End: 05-30-2020 [employer] LINQ loop recorder FDA Start: 01-14-2017 Blood Sugar Diagnostic (Contour Next Test Strips) strip Start: 10-01-2024 Lancets misc Start: 08-14-2021 Blood Sugar Diagnostic (Contour Next Test Strips) strip Start: 02-09-2022 End: 02-09-2022 Blood Sugar Diagnostic (Contour Next Test Strips) strip Start: 02-09-2022 End: 03-25-2022 Blood Sugar Diagnostic (Contour Next Test Strips) strip Start: 03-25-2022 End: 08-09-2022 Blood Sugar Diagnostic (Contour Next Test Strips) strip Start: 03-25-2022 End: 09-30-2024 Blood Sugar Diagnostic (Contour Next Test Strips) strip Start: 02-09-2022 End: 03-25-2022 Blood Sugar Diagnostic (Contour Next Test Strips) strip Start: 08-09-2022 End: 08-10-2022 Blood Sugar Diagnostic (Contour Next Test Strips) strip Start: 08-10-2022 End: 12-21-2022 Blood Sugar Diagnostic (Contour Next Test Strips) strip Start: 12-21-2022 End: 06-24-2023 Blood Sugar Diagnostic (Contour Next Test Strips) strip Start: 06-24-2023 End: 01-09-2024 Blood Sugar Diagnostic (Contour Next Test Strips) strip Start: 01-09-2024 End: 06-25-2024 Blood Sugar Diagnostic (Contour Next Test Strips) strip Start: 09-30-2024 End: 09-30-2024 Blood Sugar Diagnostic (Contour Next Test Strips) strip Start: 09-30-2024 End: 10-01-2024 Blood Sugar Diagnostic (Freestyle Lite Strips) strip Start: 06-20-2020 End: 06-28-2020 Blood Sugar Diagnostic (Freestyle Lite Strips) strip Start: 06-28-2020 End: 07-01-2020 Blood Sugar Diagnostic (Onetouch Ultra Test) strip Start: 04-14-2021 End: 04-24-2021 Blood Sugar Diagnostic (Onetouch Ultra Test) strip Start: 04-24-2021 End: 08-14-2021 Blood Sugar Diagnostic (Onetouch Ultra Test) strip Start: 08-14-2021 End: 11-15-2021 Blood Sugar Diagnostic (Onetouch Ultra Test) strip Start: 11-15-2021 End: 02-09-2022 Insulin Syringe-Needle U-100 (Bd Insulin Syringe) 0.3 mL 29 gauge x 1/2 syringe Start: 04-07-2020 End: 04-07-2020 Insulin Syringe-Needle U-100 (Bd Insulin Syringe) 0.3 mL 29 gauge x 1/2 syringe Start: 04-07-2020 End: 05-30-2020 Lancets misc Start: 04-10-2021 End: 04-12-2021 Lancets misc Start: 04-12-2021 End: 04-12-2021 Lancets misc Start: 04-12-2021 End: 08-14-2021 Pen Needle, Diabetic (Bd Ultra-Fine Mini Pen Needle) 31 gauge x 3/16 needle Start: 04-07-2020 End: 04-07-2020 Pen Needle, Diabetic (Bd Ultra-Fine Mini Pen Needle) 31 gauge x 3/16 needle Start: 04-07-2020 End: 05-30-2020 [email or web address] LINQ loop recorder FDA Start: 01-14-2017 Blood Sugar Diagnostic (Contour Next Test Strips) strip Start: 10-01-2024 [place] [place]: 08-14-2021 Blood Sugar Diagnostic (Contour Next Test Strips) strip Start: 02-09-2022 End: 02-09-2022 Blood Sugar Diagnostic (Contour Next Test Strips) strip Start: 02-09-2022 End: 03-25-2022 Blood Sugar Diagnostic (Contour Next Test Strips) strip Start: 03-25-2022 End: 08-09-2022 Blood Sugar Diagnostic (Contour Next Test Strips) strip Start: 03-25-2022 End: 09-30-2024 Blood Sugar Diagnostic (Contour Next Test Strips) strip Start: 02-09-2022 End: 03-25-2022 Blood Sugar Diagnostic (Contour Next Test Strips) strip Start: 08-09-2022 End: 08-10-2022 Blood Sugar Diagnostic (Contour Next Test Strips) strip Start: 08-10-2022 End: 12-21-2022 Blood Sugar Diagnostic (Contour Next Test Strips) strip Start: 12-21-2022 End: 06-24-2023 Blood Sugar Diagnostic (Contour Next Test Strips) strip Start: 06-24-2023 End: 01-09-2024 Blood Sugar Diagnostic (Contour Next Test Strips) strip Start: 01-09-2024 End: 06-25-2024 Blood Sugar Diagnostic (Contour Next Test Strips) strip Start: 09-30-2024 End: 09-30-2024 Blood Sugar Diagnostic (Contour Next Test Strips) strip Start: 09-30-2024 End: 10-01-2024 Blood Sugar Diagnostic (Freestyle Lite Strips) strip Start: 06-20-2020 End: 06-28-2020 Blood Sugar Diagnostic (Freestyle Lite Strips) strip Start: 06-28-2020 End: 07-01-2020 Blood Sugar Diagnostic (Onetouch Ultra Test) strip Start: 04-14-2021 End: 04-24-2021 Blood Sugar Diagnostic (Onetouch Ultra Test) strip Start: 04-24-2021 End: 08-14-2021 Blood Sugar Diagnostic (Onetouch Ultra Test) strip Start: 08-14-2021 End: 11-15-2021 Blood Sugar Diagnostic (Onetouch Ultra Test) strip Start: 11-15-2021 End: 02-09-2022 Insulin Syringe-Needle U-100 (Bd Insulin Syringe) 0.3 mL 29 gauge x 1/2 syringe Start: 04-07-2020 End: 04-07-2020 Insulin Syringe-Needle U-100 (Bd Insulin Syringe) 0.3 mL 29 gauge x 1/2 syringe Start: 04-07-2020 End: 05-30-2020 Lancets misc Start: 04-10-2021 End: 04-12-2021 Lancets misc Start: 04-12-2021 End: 04-12-2021 Lancets misc Start: 04-12-2021 End: 08-14-2021 Pen Needle, Diabetic (Bd Ultra-Fine Mini Pen Needle) 31 gauge x 3/16 needle Start: 04-07-2020 End: 04-07-2020 Pen Needle, Diabetic (Bd Ultra-Fine Mini Pen Needle) 31 gauge x 3/16 needle Start: 04-07-2020 End: 05-30-2020 [employer] LINQ loop recorder FDA Start: 01-14-2017 Blood Sugar Diagnostic (Contour Next Test Strips) strip Start: 10-01-2024 Lancets misc Start: 08-14-2021 Blood Sugar Diagnostic (Contour Next Test Strips) strip Start: 02-09-2022 End: 02-09-2022 Blood Sugar Diagnostic (Contour Next Test Strips) strip Start: 02-09-2022 End: 03-25-2022 Blood Sugar Diagnostic (Contour Next Test Strips) strip Start: 03-25-2022 End: 08-09-2022 Blood Sugar Diagnostic (Contour Next Test Strips) strip Start: 03-25-2022 End: 09-30-2024 Blood Sugar Diagnostic (Contour Next Test Strips) strip Start: 02-09-2022 End: 03-25-2022 Blood Sugar Diagnostic (Contour Next Test Strips) strip Start: 08-09-2022 End: 08-10-2022 Blood Sugar Diagnostic (Contour Next Test Strips) strip Start: 08-10-2022 End: 12-21-2022 Blood Sugar Diagnostic (Contour Next Test Strips) strip Start: 12-21-2022 End: 06-24-2023 Blood Sugar Diagnostic (Contour Next Test Strips) strip Start: 06-24-2023 End: 01-09-2024 Blood Sugar Diagnostic (Contour Next Test Strips) strip Start: 01-09-2024 End: 06-25-2024 Blood Sugar Diagnostic (Contour Next Test Strips) strip Start: 09-30-2024 End: 09-30-2024 Blood Sugar Diagnostic (Contour Next Test Strips) strip Start: 09-30-2024 End: 10-01-2024 Blood Sugar Diagnostic (Freestyle Lite Strips) strip Start: 06-20-2020 End: 06-28-2020 Blood Sugar Diagnostic (Freestyle Lite Strips) strip Start: 06-28-2020 End: 07-01-2020 Blood Sugar Diagnostic (Onetouch Ultra Test) strip Start: 04-14-2021 End: 04-24-2021 Blood Sugar Diagnostic (Onetouch Ultra Test) strip Start: 04-24-2021 End: 08-14-2021 Blood Sugar Diagnostic (Onetouch Ultra Test) strip Start: 08-14-2021 End: 11-15-2021 Blood Sugar Diagnostic (Onetouch Ultra Test) strip Start: 11-15-2021 End: 02-09-2022 Insulin Syringe-Needle U-100 (Bd Insulin Syringe) 0.3 mL 29 gauge x 1/2 syringe Start: 04-07-2020 End: 04-07-2020 Insulin Syringe-Needle U-100 (Bd Insulin Syringe) 0.3 mL 29 gauge x 1/2 syringe Start: 04-07-2020 End: 05-30-2020 Lancets misc Start: 04-10-2021 End: 04-12-2021 Lancets misc Start: 04-12-2021 End: 04-12-2021 Lancets misc Start: 04-12-2021 End: 08-14-2021 Pen Needle, Diabetic (Bd Ultra-Fine Mini Pen Needle) 31 gauge x 3/16 needle Start: 04-07-2020 End: 04-07-2020 Pen Needle, Diabetic (Bd Ultra-Fine Mini Pen Needle) 31 gauge x 3/16 needle Start: 04-07-2020 End: 05-30-2020 [email or web address] LINQ loop recorder FDA Start: 01-14-2017 Blood Sugar Diagnostic (Contour Next Test Strips) strip Start: 10-01-2024 Lancets misc Start: 08-14-2021 Blood Sugar Diagnostic (Contour Next Test Strips) strip Start: 02-09-2022 End: 02-09-2022 Blood Sugar Diagnostic (Contour Next Test Strips) strip Start: 02-09-2022 End: 03-25-2022 Blood Sugar Diagnostic (Contour Next Test Strips) strip Start: 03-25-2022 End: 08-09-2022 Blood Sugar Diagnostic (Contour Next Test Strips) strip Start: 03-25-2022 End: 09-30-2024 Blood Sugar Diagnostic (Contour Next Test Strips) strip Start: 02-09-2022 End: 03-25-2022 Blood Sugar Diagnostic (Contour Next Test Strips) strip Start: 08-09-2022 End: 08-10-2022 Blood Sugar Diagnostic (Contour Next Test Strips) strip Start: 08-10-2022 End: 12-21-2022 Blood Sugar Diagnostic (Contour Next Test Strips) strip Start: 12-21-2022 End: 06-24-2023 Blood Sugar Diagnostic (Contour Next Test Strips) strip Start: 06-24-2023 End: 01-09-2024 Blood Sugar Diagnostic (Contour Next Test Strips) strip Start: 01-09-2024 End: 06-25-2024 Blood Sugar Diagnostic (Contour Next Test Strips) strip Start: 09-30-2024 End: 09-30-2024 Blood Sugar Diagnostic (Contour Next Test Strips) strip Start: 09-30-2024 End: 10-01-2024 Blood Sugar Diagnostic (Freestyle Lite Strips) strip Start: 06-20-2020 End: 06-28-2020 Blood Sugar Diagnostic (Freestyle Lite Strips) strip Start: 06-28-2020 End: 07-01-2020 Blood Sugar Diagnostic (Onetouch Ultra Test) strip Start: 04-14-2021 End: 04-24-2021 Blood Sugar Diagnostic (Onetouch Ultra Test) strip Start: 04-24-2021 End: 08-14-2021 Blood Sugar Diagnostic (Onetouch Ultra Test) strip Start: 08-14-2021 End: 11-15-2021 Blood Sugar Diagnostic (Onetouch Ultra Test) strip Start: 11-15-2021 End: 02-09-2022 Insulin Syringe-Needle U-100 (Bd Insulin Syringe) 0.3 mL 29 gauge x 1/2 syringe Start: 04-07-2020 End: 04-07-2020 Insulin Syringe-Needle U-100 (Bd Insulin Syringe) 0.3 mL 29 gauge x 1/2 syringe Start: 04-07-2020 End: 05-30-2020 Lancets misc Start: 04-10-2021 End: 04-12-2021 Lancets misc Start: 04-12-2021 End: 04-12-2021 Lancets misc Start: 04-12-2021 End: 08-14-2021 Pen Needle, Diabetic (Bd Ultra-Fine Mini Pen Needle) 31 gauge x 3/16 needle Start: 04-07-2020 End: 04-07-2020 Pen Needle, Diabetic (Bd Ultra-Fine Mini Pen Needle) 31 gauge x 3/16 needle Start: 04-07-2020 End: 05-30-2020 Goals Date Patient Goal Desired Activity /State Functional Status Date Assessment Result Facility 03-25-2022 Functional status Ambulates [facility] Work Phone: Mental Status Date Assessment Result Facility 03-25-2022 Cognitive function Voice/Name [facility] Work Phone: 10-27-2021 Cognitive function Level Of Cons ciousness Awake;Alert;Appropriate [facility] Work Phone: Clinical Notes 11-28-2015 to 09-24-2024 Note Date & Type Note Facility 09-24-2024 Radiology Diagnostic study note [facility] Imaging Services [address] [place], [place] [address] Ribs Uni Min 3V w/PA Chest MR#: [id number] Acct: [id number] Name: SANCHEZ NEWMAN Rep #: [id number] : 1945 M [id number] From: Bennett Fu MD PCP: Dr. Svetlana Casas MD Status: R EG CLI Study:Ribs Uni Min 3V w/PA Chest Date of Exam : 09/22/24 Exam# [id number] Ordering Dr: Jeb Casas MD PROCEDURE: RIBS UNI MIN 3V W/PA CHEST 09/22/2024 REASON FOR EXAM: LEFT RIB PAIN TECHNIQUE: Frontal and 4 views left ribs. COMPARISON: None available FINDINGS: The lungs appear clear. Pulmonary vascularity appears within limits. The cardiac and mediastinal contours appear within limits. Suggestion of coronary stent or heavy calcification. Partially imaged right shoulder replacement noted. Partially imaged lumbar hardware. Posterolateral left 6th through 10th rib fractures with apparent callus formation. No acute appearing rib fracture identified. Ovoid sclerotic focus anterior left 6th rib nonspecific. RAD/Ribs Uni Min 3V w/PA Chest IMPRESSION: No acute appearing rib fracture identified. Reading Location: [id number] CC: Dr. 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 [facility] 09-16-2024 Evaluation note Diagnosis Onset Date Resolution Dysuria acute September 16, 2024 3:29pm Rib pain on left side acute September 16, 2024 3:29pm Dementia chronic September 16, 2024 3:29pm Essential hypertension chronic Ma 2024 3:29pm Hypothyroidism chronic September 16, 2024 3:29pm Type II diabetes mellitus chronic September 16, 2024 3:29pm Polyneuropathy acute September 22, 2024 10:06am Dementia chronic September 22, 2024 10:06am Atherosclerotic heart disease of [place] coronary artery without angina pectoris chronic October 16, 2024 1:56pm Essential hypertension chronic Ju 2024 1:56pm Mixed hyperlipidemia chronic October 16, 2024 1:56pm [facility] Work Phone: 1(934) 801-201305-21-2025 Evaluation note* Diagnosis Onset Date Resolution Status Admit Date Dysuria acute September 16, 2024 3:29pm Rib pain on left side acute September 16, 2024 3:29pm Dementia chronic September 16, 2024 3:29pm Essential hypertension chronic Ma y 2024 3:29pm Hypothyroidism chronic September 16, 2024 3:29pm Type II diabetes mellitus chronic September 16, 2024 3:29pm Polyneuropathy acute September 22, 2024 10:06am Dementia chronic September 22, 2024 10:06am Atherosclerotic heart diseas e of [place] coronary artery without angina pectoris chronic October 16, 2024 1:56pm Essential hypertension chronic 2024 1:56pm Mixed hyperlipidemia chronic October 16, 2024 1:56pm Dementia chronic December 17, 2 025 1:43pm Essential hypertension chronic Au praful 2024 1:43pm Hypothyroidism chronic November 1:43pm Mixed hyperlipidemia chronic 2024 1:43pm Type II diabetes mellitus chronic December 17, 2024 1:43pm Polyneuropathy acute November 8:22am [facility] Work Phone: 1(518) 397-180505-21-2025 Evaluation note* Diagnosis Onset Date Resolution Status Admit Date Dysuria acute September 16, 2024 3:29pm Rib pain on left side acute September 16, 2024 3:29pm Dementia chronic September 16, 2024 3:29pm Essential hypertension chronic Ma y 2024 3:29pm Hypothyroidism chronic September 16, 2024 3:29pm Type II diabetes mellitus chronic September 16, 2024 3:29pm Polyneuropathy acute September 22, 2024 10:06am Dementia chronic September 22, 2024 10:06am Atherosclerotic heart diseas e of [place] coronary artery without angina pectoris chronic October 16, 2024 1:56pm Essential hypertension chronic Ju 2024 1:56pm Mixed hyperlipidemia chronic October 16, 2024 1:56pm Dementia chronic December 17, 2 025 1:43pm Essential hypertension chronic Au 2024 1:43pm Hypothyroidism chronic November 1:43pm Mixed hyperlipidemia chronic [facility] [facility] 2024 1:43pm Type II diabetes mellitus chronic December 17, 2024 1:43pm Polyneuropathy acute November 8:22am Toe pain, left acute November 8:22am Dementia chronic December 21, 2 025 8:22am [facility] Work Phone: 1(264) 121-645102-27-2025 Evaluation note* Diagnosis Onset Date Resolution Status Admit Date Polyneuropathy acute May 312024 9:02am Dementia chronic June 25, 2024 9:02am Dysuria acute September 16, 2024 3:29pm Rib pain on left side acute September 16, 2024 3:29pm Dementia chronic September 16, 2024 3:29pm Essential hypertension chronic Ma 2024 3:29pm Hypothyroidism chronic September 16, 2024 3:29pm Type II diabetes mellitus chronic September 16, 2024 3:29pm Polyneuropathy acute September 22, 2024 10:06am Dementia chronic September 22, 2024 10:06am [place] [facility] Work Phone: 1(449) 688-584002-12-2025 Evaluation note* Diagnosis Onset Date Resolution Status Admit Date CKD (chronic kidney disease) , stage III chronic June 10, 2 025 3:34pm Dementia chronic June 10, 2024 3:34pm Essential hypertension chronic 2024 3:34pm Mixed hyperlipidemia chronic 2024 3:34pm Type II diabetes mellitus chronic June 10, 2024 3:34pm Urticaria chronic June 10, 2024 3:34pm Polyneuropathy acute May 312024 9:02am Dementia chronic June 25, 2024 9:02am [facility] Work Phone: 1(455) 941-433802-12-2025 Evaluation note* Diagnosis Onset Date Resolution Status Admit Date CKD (chronic kidney disease) , stage III chronic June 10, 2 025 3:34pm Dementia chronic June 10, 2024 3:34pm Essential hypertension chronic 2024 3:34pm Mixed hyperlipidemia chronic Febr 2024 3:34pm Type II diabetes mellitus chronic June 10, 2024 3:34pm Urticaria chronic June 10, 2024 3:34pm Polyneuropathy acute May 312024 9:02am Dementia chronic June 25, 2024 9:02am Dysuria acute September 16, 2024 3:29pm Rib pain on left side acute September 16, 2024 3:29pm Dementia chronic September 16, 2024 3:29pm Essential hypertension chronic 2024 3:29pm Hypothyroidism chronic September 16, 2024 3:29pm Type II diabetes mellitus chronic September 16, 2024 3:29pm [place] [facility] Work Phone: 1(332) 186-661902-12-2025 Evaluation note* Diagnosis Onset Date Resolution Status Admit Date CKD (chronic kidney disease) , stage III chronic June 10, 2 025 3:34pm Dementia chronic June 10, 2024 3:34pm Essential hypertension chronic Fe bruary 2024 3:34pm Mixed hyperlipidemia chronic Febr uary 2024 3:34pm Type II diabetes mellitus chronic June 10, 2024 3:34pm Urticaria chronic June 10, 2024 3:34pm Polyneuropathy acute May 312024 9:02am Dementia chronic June 25, 2024 9:02am Dysuria acute September 16, 2024 3:29pm Rib pain on left side acute September 16, 2024 3:29pm Dementia chronic September 16, 2024 3:29pm Essential hypertension chronic Ma 2024 3:29pm Hypothyroidism chronic September 16, 2024 3:29pm Type II diabetes mellitus chronic September 16, 2024 3:29pm Polyneuropathy acute September 22, 2024 10:06am Dementia chronic September 22, 2024 10:06am [facility] Work Phone: 1(478) 673-212903-02-2024 Hospital Discharge instructions Additional Instructions Keep this dressing on for 24 hours. You may take it off to clean, then put the finger splint back on. Please return for any worsening redness, fever chills nausea or vomiting. You need to have these removed in -12 at most 2 weeks. Return for any worsening symptoms. [facility] Work Phone: 1(690) 488-520101-04-2024 History of Present illness Narrative* Gay Sanderson, CLEOPATRA-LEHR CUTTER, DNP - 05/02/2023 11:30 AM EST Chief Complaint: Chief Complaint Patient presents with Follow-up History of Present Illness: Mr. Newman is a 77 y.o. 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 He presents to [facility] GI Surgical Oncology clinic for surveillance with MRI. Interval History: Mr. Newman is here today with his for his appointment. He complains of constipation. He is taking a stool softener. Discussed adding Miralax. He had a BM this morning, it was just difficult togo. Allergies Allergen Reactions Codeine Itching Current Outpatient [...] (Oral) Resp 18 Ht 1.79 m (5' 10.47) Wt 86.4 kg (190 lb 6.4 oz) [...] MCV 92.4 06/28/2022 No results found for: CEA, CEAPRESHAMA, CEANEWMETHOD No results found for: CA125 Lab Results Component Value Date ALT 36 06/28/2022 AST 37 06/28/2022 ALKPHOS 80 06/28/2022 BILITOTAL 0.5 06/28/2022 Tumor Markers: Lab Results Component Value Date CA199 <15.00 06/28/2022 CHROMOGRANA 357 (H) 06/28/2022 Radiographic evaluation: MRI abd today 05/02/2022: Pending final read. Imaging reviewed. Assessment Mr. Newman is a 77 y.o. 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 Plan Patient seen and evaluated by myself and Dr. Stewart, all available relevant imaging and labs reviewed, and the plan was developed collaboratively. RTC one year telephone visit with MRI prior, MRI local - sent to [facility] [phone]; fax: [phone] Orders Placed This Encounter MRI ABDOMEN/PELVIS WITHOUT AND WITH CONTRAST All questions were answered to the patient's satisfaction. He was instructed to call the office if they had further questions. Total time LEHR CUTTER spent prior to patient visit obtaining and reviewing records, and with patient reviewing HPI, pertinent medical, surgical and social history and conducting physical exam: 15 minutes. Gay Sanderson, MICHAEL, GI ASST-LEHR CUTTER Nurse Practitioner, GI Surgical Oncology Attending Physician Note I interviewed and examined this patient with the PERCUSSION INSTRUMENT TUNER/fellow/resident. I reviewed the history and exam detailed in the note and have edited it as necessary. I agree with the medical decision making with the following comment(s): pancreatic tail lesion appears stable; therefore will swtich to annual surveillance. FU 1 year. Franck Stewart MD [facility] History of Present illness Narrative* Gay Sanderson, GI ASST-LEHR CUTTER - 10/25/2022 1:45 PM EDT Chief Complaint: Chief Complaint Patient presents with Follow-up History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 skin mole Finger laceration Change in skin mole Anxiety and depression CKD (chronic kidney disease), stage III Dementia Essential hypertension Type II diabetes mellitus Chief Complaint Admit Date URINE LABSPEC May 18, 2024 2 :36pm PRIMARY PANCREATIC NEUROENDOCRINE TUMOR June 04, 2024 6:43am 3 M FU June 10, 2024 3:34pm other amnesia June 25, 2024 9:02am EORDER June 29, 2024 4:07 pm Reason for Visit Admit Date CKD (chronic kidney disease), stage III June 10, 2024 3:34pm Dementia June 10, 2024 3:34pm Essential hypertension June 10 3:34pm Mixed hyperlipidemia June 10, 2024 3:34pm Type II diabetes mellitus June 10, 2024 3:34pm Urticaria June 10, 2024 3:34pm Polyneuropathy June 25, 2024 9:02am Dementia June 25, 2024 9:02am Chief Complaint Admit Date URINE LABSPEC May 18, 2024 2 :36pm PRIMARY PANCREATIC NEUROENDOCRINE TUMOR June 04, 2024 6:43am 3 M FU June 10, 2024 3:34pm other amnesia June 25, 2024 9:02am EORDER June 29, 2024 4:07 pm DEMENTIA July 25, 2024 8:0 7am Chief Complaint Admit Date PRIMARY PANCREATIC NEUROENDOCRINE TUMOR June 04, 2024 6:43am 3 M FU June 10, 2024 3:34pm other amnesia June 25, 2024 9:02am EORDER June 29, 2024 4:07 pm DEMENTIA July 25, 2024 8:0 7am 3 M September 16, 2024 3:29p m Chief Complaint Admit Date PRIMARY PANCREATIC NEUROENDOCRINE TUMOR June 04, 2024 6:43am 3 M FU June 10, 2024 3:34pm other amnesia June 25, 2024 9:02am EORDER June 29, 2024 4:07 pm DEMENTIA July 25, 2024 8:0 7am 3 M September 16, 2024 3:29p m 3 M FU September 22, 2024 10:06 am Reason for Visit Admit Date CKD (chronic kidney disease), stage III June 10, 2024 3:34pm Dementia June 10, 2024 3:34pm Essential hypertension June 10 3:34pm Mixed hyperlipidemia June 10, 2024 3:34pm Type II diabetes mellitus June 10, 2024 3:34pm Urticaria June 10, 2024 3:34pm Polyneuropathy June 25, 2024 9:02am Dementia June 25, 2024 9:02am Dysuria September 16, 2024 3:29p m Rib pain on left side September 16, 2024 3:2 9pm Dementia September 16, 2024 3:29p m Essential hypertension September 16, 2024 3: 29pm Hypothyroidism September 16, 2024 3:29p m Type II diabetes mellitus September 16, 2024 3:29pm Chief Complaint Admit Date PRIMARY PANCREATIC NEUROENDOCRINE TUMOR June 04, 2024 6:43am 3 M FU June 10, 2024 3:34pm other amnesia June 25, 2024 9:02am EORDER June 29, 2024 4:07 pm DEMENTIA July 25, 2024 8:0 7am 3 M September 16, 2024 3:29p m 3 M FU September 22, 2024 10:06 am LABS 09/16/24 AND 09/22/24 September 22, 2024 11:23am [facility] September 23 1:37pm Reason for Visit Admit Date CKD (chronic kidney disease), stage III June 10, 2024 3:34pm Dementia June 10, 2024 3:34pm Essential hypertension June 10 3:34pm Mixed hyperlipidemia June 10, 2024 3:34pm Type II diabetes mellitus June 10, 2024 3:34pm Urticaria June 10, 2024 3:34pm Polyneuropathy June 25, 2024 9:02am Dementia June 25, 2024 9:02am Dysuria September 16, 2024 3:29p m Rib pain on left side September 16, 2024 3:2 9pm Dementia September 16, 2024 3:29p m Essential hypertension September 16, 2024 3: 29pm Hypothyroidism September 16, 2024 3:29p m Type II diabetes mellitus September 16, 2024 3:29pm Polyneuropathy September 22, 2024 10:06 am Dementia September 22, 2024 10:06 am Chief Complaint Admit Date 3 M FU June 10, 2024 3:34pm other amnesia June 25, 2024 9:02am EORDER June 29, 2024 4:07 pm DEMENTIA July 25, 2024 8:0 7am 3 M September 16, 2024 3:29p m 3 M FU September 22, 2024 10:06 am LABS 09/16/24 AND 09/22/24 September 22, 2024 11:23am [facility] [place] September 23 1:37pm Chief Complaint Admit Date other amnesia June 25, 2024 9:02am EORDER June 29, 2024 4:07 pm DEMENTIA July 25, 2024 8:0 7am 3 M September 16, 2024 3:29p m 3 M FU September 22, 2024 10:06 am LABS 09/16/24 AND 09/22/24 September 22, 2024 11:23am [facility] [place] September 23 1:37pm 1 Y FU October 16, 2024 1:56 pm Reason for Visit Admit Date Polyneuropathy June 25, 2024 9:02am Dementia June 25, 2024 9:02am Dysuria September 16, 2024 3:29p m Rib pain on left side September 16, 2024 3:2 9pm Dementia September 16, 2024 3:29p m Essential hypertension September 16, 2024 3: 29pm Hypothyroidism September 16, 2024 3:29p m Type II diabetes mellitus September 16, 2024 3:29pm Polyneuropathy September 22, 2024 10:06 am Dementia September 22, 2024 10:06 am Chief Complaint Admit Date DEMENTIA July 25, 2024 8:0 7am 3 M September 16, 2024 3:29p m 3 M FU September 22, 2024 10:06 am LABS 09/16/24 AND 09/22/24 September 22, 2024 11:23am [facility] September 23 1:37pm 1 Y FU October 16, 2024 1:56 pm INT LABS November 02, 2024 11:58 am Reason for Visit Admit Date Dysuria September 16, 2024 3:29p m Rib pain on left side September 16, 2024 3:2 9pm Dementia September 16, 2024 3:29p m Essential hypertension September 16, 2024 3: 29pm Hypothyroidism September 16, 2024 3:29p m Type II diabetes mellitus September 16, 2024 3:29pm Polyneuropathy September 22, 2024 10:06 am Dementia September 22, 2024 10:06 am Atherosclerotic heart diseas e of [place] coronary artery without angina pectoris October 16, 2024 1:56pm Essential hypertension October 16, 2024 1 :56pm Mixed hyperlipidemia October 16, 2024 1:5 6pm Chief Complaint Admit Date 3 M September 16, 2024 3:29p m 3 M FU September 22, 2024 10:06 am LABS 09/16/24 AND 09/22/24 September 22, 2024 11:23am [facility] [place] [facility] [place] September 23 1:37pm 1 Y FU October 16, 2024 1:56 pm INT LABS November 02, 2024 11:58 am 3 M FU December 17, 2024 1: 43pm Chief Complaint Admit Date 3 M September 16, 2024 3:29p m 3 M FU September 22, 2024 10:06 am LABS 09/16/24 AND 09/22/24 September 22, 2024 11:23am [facility] [place] [facility] September 23 1:37pm 1 Y FU October 16, 2024 1:56 pm INT LABS November 02, 2024 11:58 am 3 M FU December 17, 2024 1: 43pm E ORDER December 17, 2024 3: 30pm 3 M FU December 21, 2024 8: 22am Reason for Visit Admit Date Dysuria September 16, 2024 3:29p m Rib pain on left side September 16, 2024 3:2 9pm Dementia September 16, 2024 3:29p m Essential hypertension September 16, 2024 3: 29pm Hypothyroidism September 16, 2024 3:29p m Type II diabetes mellitus September 16, 2024 3:29pm Polyneuropathy September 22, 2024 10:06 am Dementia September 22, 2024 10:06 am Atherosclerotic heart diseas e of [place] coronary artery without angina pectoris October 16, 2024 1:56pm Essential hypertension October 16, 2024 1 :56pm Mixed hyperlipidemia October 16, 2024 1:5 6pm Dementia December 17, 2024 1: 43pm Essential hypertension December 17, 2024 1:43pm Hypothyroidism December 17, 2024 1: 43pm Mixed hyperlipidemia December 17, 2024 1 :43pm Type II diabetes mellitus December 17, 2 025 1:43pm Polyneuropathy December 21, 2024 8: 22am Reason for Visit Admit Date Dysuria September 16, 2024 3:29p m Rib pain on left side September 16, 2024 3:2 9pm Dementia September 16, 2024 3:29p m Essential hypertension September 16, 2024 3: 29pm Hypothyroidism September 16, 2024 3:29p m Type II diabetes mellitus September 16, 2024 3:29pm Polyneuropathy September 22, 2024 10:06 am Dementia September 22, 2024 10:06 am Atherosclerotic heart diseas e of [place] coronary artery without angina pectoris October 16, 2024 1:56pm Essential hypertension October 16, 2024 1 :56pm Mixed hyperlipidemia October 16, 2024 1:5 6pm Dementia December 17, 2024 1: 43pm Essential hypertension December 17, 2024 1:43pm Hypothyroidism December 17, 2024 1: 43pm Mixed hyperlipidemia December 17, 2024 1 :43pm Type II diabetes mellitus December 17, 1:43pm Polyneuropathy December 21, 2024 8: 22am Toe pain, left December 21, 2024 8: 22am Dementia December 21, 2024 8: 22am Reason for Referral Specialty Diagnoses / Procedures Referred By Contac t Referred To Contact Diagnoses Neuroendocrine cancer Procedures NUC PET NEUROENDOCRINE CHG NUC THERAPY HYPERTHYROID SUBSEQUENT Benoit Benavides MD [address] [facility] [address] [place] [address] Referral ID Status Reason Start Date Expiration Date V isits Requested Visits Authorized [id number] Pending Review 05/17/2022 06/11/2023 1 1 Specialty Diagnoses / Procedures Referred By Contac t Referred To Contact Diagnoses Pancreatic mass Procedures MRI ABDOMEN WITH AND WITHOUT CONTRAST [place] MRI, ABDOMEN, COMBO Gay Sanderson, GI ASST-LE[facility] CUTTER [address] [place] [address] Referral ID Status Reason Start Date Expiration Date V isits Requested Visits Authorized [id number] New Request 06/28/2022 07/23/2023 1 1 Specialty Diagnoses / Procedures Referred By Contac t Referred To Contact Diagnoses Pancreatic mass Procedures UPPER EUS MN EGD INTRMURAL US NEEDLE ASPIRATE/BIOPSY ESOPHAGS Gay Sanderson, GI ASST[facility] CUTTER [address] [place] [address] Referral ID Status Reason Start Date Expiration Date V isits Requested Visits Authorized [id number] New Request 06/28/2022 07/23/2023 1 1 Specialty Diagnoses / Procedures Referred By Contac t Referred To Contact Diagnoses Pancreatic mass Procedures UPPER EUS [place] EGD INTRMURAL US NEEDLE ASPIRATE/BIOPSY ESOPHAGS Gay Sanderson, GI ASST-LE[facility] CUTTER [address] [place] [address] Specialty Diagnoses / Procedures Referred By Onesimo silva Referred To Contact Diagnoses Primary pancreatic neuroendocrine tumor Procedures MRI ABDOMEN WITH AND WITHOUT CONTRAST [place] MRI, ABDOMEN, COMBO Kin, Gay A, GI ASST[facility] CUTTER [address] [place] [address] Referral ID Status Reason Start Date Expiration Date V isits Requested Visits Authorized [id number] New Request 10/25/2022 11/19/2023 1 1 Specialty Diagnoses / Procedures Referred By Onesimo t Referred To Contact Diagnoses Primary pancreatic neuroendocrine tumor Procedures MRI ABDOMEN/PELVIS WITHOUT AND WITH CONTRAST [place] MRI, ABDOMEN, COMBO [place] MRI, PELVIS, COMBO Kin, Gay A, GI ASST-LEHR CUTTER, DNP [address] [place] [id number] Referral ID Status Reason Start Date Expiration Date V isits Requested Visits Authorized [id number] New Request 05/02/2023 05/26/2024 1 1 Specialty Diagnoses / Procedures Referred By Onesimo silva Referred To Contact Diagnoses Primary pancreatic neuroendocrine tumor Procedures MRI ABDOMEN WITH AND WITHOUT CONTRAST [place] MRI, ABDOMEN, COMBO Kin, Gay A, GI ASST-LEHR CUTTER, DNP [address] [place] [address] Additional Source Comments (unrecognized sect ion and content) No Status Records FoundNo Status Records FoundNo Status Records FoundNo Status Records Found INFORMATION SOURCE (unrecogn ized section and content) DATE CREATED AUTHOR 07/19/2018 [facility] DATE CREATED AUTHOR AUTHOR'S ORGANIZ ATION 09/28/2023 [facility] DATE CREATED AUTHOR AUTHOR'S ORGANIZ ATION 06/13/2024 [facility] DATE CREATED AUTHOR AUTHOR'S ORGANIZ ATION 12/27/2024 [facility] Reason for Visit (unrecogniz ed section and content) Reason For Visit Description New/Est - 1st visit with physician 06/12 Preliminary reason f or visit data, not yet signed by the author as of left foot pain Specialty Diagnoses / Procedures Referred By Contac t Referred To Contact Diagnoses Neuroendocrine cancer Procedures NUC PET NEUROENDOCRINE CHG NUC THERAPY HYPERTHYROID SUBSEQUENT Benoit Benavides MD [address] [address] Referral ID Status Reason Start Date Expiration Date V isits Requested Visits Authorized [id number] Pending Review 05/17/2022 06/11/2023 1 1 Reason Comments New Patient Specialty Diagnoses / Procedures Referred By Contac t Referred To Contact Surgical Oncology Diagnoses Neuroendocrine cancer Benoit Benavidse MD [address] [address] Referral ID Status Reason Start Date Expiration Date V isits Requested Visits Authorized [id number] Pending Review 06/07/2022 07/02/2023 1 1 Specialty Diagnoses / Procedures Referred By Contac t Referred To Contact Diagnoses Pancreatic mass Procedures UPPER EUS [place] EGD INTRMURAL US NEEDLE ASPIRATE/BIOPSY ESOPHAGS Gay Sanderson [facility] [address] [place] [address] Referral ID Status Reason Start Date Expiration Date V isits Requested Visits Authorized [id number] New Request 06/28/2022 07/23/2023 1 1 Reason Comments Follow-up Specialty Diagnoses / Procedures Referred By Contac t Referred To Contact Diagnoses Primary pancreatic neuroendocrine tumor Procedures MRI ABDOMEN WITH AND WITHOUT CONTRAST [place] MRI, ABDOMEN, COMBO Gay Sanderson, GI ASST-LEHR CUTTER, DNP [address] [place] [address] Referral ID Status Reason Start Date Expiration Date V isits Requested Visits Authorized [id number] New Request 10/25/2022 11/19/2023 1 1 Goals (unrecognized section and content) Goals may be documented in a n alternate sectionGoals may be documented in an alternate sectionGoals may be documented in an alternate sectionGoals may be documented in an alternate sectionGoals may be documented in an alternate sectionGoals may be documented in an alternate sectionGoals may be documented in an alternate sectionGoals may be documented in an alternate sectionGoals may be documented in an alternate sectionGoals may be documented in an alternate sectionGoals may be documented in an alternate sectionGoals may be documented in an alternate sectionGoals may be documented in an alternate sectionGoals may be documented in an alternate sectionGoals may be documented in an alternate sectionGoals may be documented in an alternate sectionGoals may be documented in an alternate sectionGoals may be documented in an alternate sectionGoals may be documented in an alternate sectionGoals may be documented in an alternate sectionGoals may be documented in an alternate sectionGoals may be documented in an alternate section Care Teams (unrecognized sec tion and content) Team Status: Active Member Role Status Dates Dr. Maris Rahman III, MD Family Provider Active Dr. Svetlana Casas MD Primary Care Provider Active Team Status: Inactive Member Role Status Dates Dr. Svetlana Casas MD Primary Care Provider, Refer ring Provider Active Dr. Oscar Contreras MD Attending Provider Active Team Status: Inactive Member Role Status Dates Dr. Svetlana Casas MD Primary Care P jayda, Attending Provider, Referring Provider Active Team Status: Active Member Role Status Dates Dr. Svetlana Casas MD Primary Care Provider Active Dr. Lolis Curiel MD Emergency Provider Active Dr. Jayce Barclay MD Admit Provider, Attending Provider, Other Provider Active Team Status: Inactive Member Role Status Dates Dr. Svetlana Casas MD Primary Care Provider, Refer ring Provider Active Nicholas Bishop PERCUSSION INSTRUMENT TUNER, PERCUSSION INSTRUMENT TUNER-C Attending Provider Active Team Status: Inactive Member Role Status Dates Dr. Svetlana Casas MD Primary Care Provider, Refer ring Provider Active Dr. Yelitza Baker MD Attending Provider Active Team Status: Active Member Role Status Dates Dr. Svetlana Casas MD Primary Care Provider Active Dr. Oscar Contreras MD Attending Provider, Other Prov ider Active Team Status: Inactive Member Role Status Dates Dr. Svetlana Casas MD Primary Care Provider Active Dr. Lolis Curiel MD Emergency Provider Active Dr. Jayce Barclay MD Admit Provider, Other Provide r Active Dr. Roseline Torres MD Attending Provider Active Team Status: Inactive Member Role Status Dates Dr. Svetlana Casas MD Primary Care Provider Active Nicholas Bishop PERCUSSION INSTRUMENT TUNER, PERCUSSION INSTRUMENT TUNER-C Attending Provider, Referring Prov ider Active Team Status: Inactive Member Role Status Dates Dr. Svetlana Casas MD Primary Care Provider Active Nicholas Bishop PERCUSSION INSTRUMENT TUNER, PERCUSSION INSTRUMENT TUNER-C Attending Provider Active Team Status: Active Member Role Status Dates Dr. Svetlana Casas MD Primary Care Provider Active Dr. Oscar Contreras MD Attending Provider Active Team Status: Inactive Member Role Status Dates Dr. Svetlana Casas MD Primary Care Provider Active Dr. Oscar Contreras MD Attending Provider Active Overlay Operator Relationship Specialty Start Date End Date Svetlana Casas MD [address] [place] [phone] PCP - General Internal Medicine 06/26/22 Lolis Laboy, RN Registered Nurse 05/15/22 Yelitza Baker [facility] [address] [place] [address] Oncologist Hematology 05/15/22 Overlay Operator Relationship Specialty Start Date End Date Svetlana Casas MD [address] [place] [phone] PCP - General Internal Medicine 06/26/22 Lolis Laboy, RN Registered Nurse 05/15/22 Yelitza Baker, [facility] [address] [place] [address] Oncologist Hematology 05/15/22 Overlay Operator Relationship Specialty Start Date End Date Svetlana Casas MD [address] [place] [phone] PCP - General Internal Medicine 06/26/22 Lolis Laboy, RN Registered Nurse 05/15/22 Yelitza Baker [facility] [address] [facility], [place] [id number] Oncologist Hematology 05/15/22 Overlay Operator Relationship Specialty Start Date End Date Svetlana Casas MD [address] [phone] PCP - General Internal Medicine 06/26/22 Lolis Laboy, RN Registered Nurse 05/15/22 Yelitza Baker, [facility] [address] [place] [address] Oncologist Hematology 05/15/22 Team Status: Inactive Member Role Status Dates Dr. Svetlana Casas MD Primary Care Provider, Refer ring Provider Active Viktoriya Calvillo PA, PA Attending Provider Active Team Status: Inactive Member Role Status Dates Dr. Svetlana Casas MD Primary Care Provider, Refer ring Provider Active Trevor Cooper PA, PA Attending Provider Active Team Status: Inactive Member Role Status Dates Dr. Svetlana Casas MD Primary Care Provider Active Viktoriya Calvillo PA, PA Attending Provider, Referr ing Provider Active Team Status: Inactive Member Role Status Dates Dr. Svetlana Casas MD Primary Care Provider Active Dr. Beau Mario , Emergency Provider Active Team Status: Inactive Member Role Status Dates Dr. Svetlana Casas MD Primary Care Provider Active Dr. Beau Mario DO Attending Provider, Emergency P jayda Active Overlay Operator Relationship Specialty Start Date End Date Svetlana Casas MD [address] [phone] PCP - General Internal Medicine 06/26/22 Lolis Laboy, RN Registered Nurse 05/15/22 Yelitza Baker, [facility] [address] [place] [address] Oncologist Hematology 05/15/22 Team Status: Inactive Member Role Status Dates Dr. Svetlana Casas MD Primary Care Provider, Atten ding Provider Active Team Status: Active Member Role Status Dates Dr. Svetlana Casas MD Primary Care Provider Active Team Status: Inactive Member Role Status Dates Dr. Svetlana Casas MD Primary Care Provider Active Start: March 13, 2024 End: March 13, 2024 Dr. Nina Marrero MD Attending Provider Active Start: March 13, 2024 End: March 13, 2024 Team Status: Inactive Member Role Status Dates Dr. Svetlana Casas MD Primary Care Provider Active Start: May 16, 2024 End: May 16, 2024 Dr. Nina Marrero MD Attending Provider Active Start: May 16, 2024 End: May 16, 2024 Dr. Nina Marrero MD Referring Provider Active Start: May 16, 2024 End: May 16, 2024 Team Status: Inactive Member Role Status Dates Dr. Svetlana Casas MD Primary Care Provider Active Start: May 18, 2024 End: May 18, 2024 Dr. Nina Marrero MD Attending Provider Active Start: May 18, 2024 End: May 18, 2024 Team Status: Inactive Member Role Status Dates Dr. Svetlana Casas MD Primary Care Provider Active Start: June 04, 2024 End: June 04, 2024 KIN LEE Attending Provider Active Star t: June 04, 2024 End: June 04, 2024 KIN LEE Referring Provider Active Star t: June 04, 2024 End: June 04, 2024 Team Status: Inactive Member Role Status Dates Dr. Svetlana Casas MD Primary Care Provider Active Start: June 10, 2024 End: June 10, 2024 Dr. Svetlana Casas MD Attending Provider Active Start: June 10, 2024 End: June 10, 2024 Dr. Svetlana Casas MD Referring Provider Active Start: June 10, 2024 End: June 10, 2024 Team Status: Inactive Member Role Status Dates Dr. Svetlana Casas MD Primary Care Provider Active Start: June 25, 2024 End: June 25, 2024 Dr. Svetlana Casas MD Referring Provider Active Start: June 25, 2024 End: June 25, 2024 Dr. Hussein Waldron MD Attending Provider Active Start: June 25, 2024 End: June 25, 2024 Team Status: Inactive Member Role Status Dates Dr. Svetlana Casas MD Primary Care Provider Active Start: June 29, 2024 End: June 29, 2024 Dr. Hussein Waldron MD Attending Provider Active Start: June 29, 2024 End: June 29, 2024 Dr. Hussein Waldron MD Referring Provider Active Start: June 29, 2024 End: June 29, 2024 Team Status: Inactive Member Role Status Dates Dr. Svetlana Casas MD Primary Care Provider Active Start: July 25, 2024 End: July 25, 2024 Dr. Hussein Waldron MD Attending Provider Active Start: July 25, 2024 End: July 25, 2024 Dr. Hussein Waldron MD Referring Provider Active Start: July 25, 2024 End: July 25, 2024 Team Status: Inactive Member Role Status Dates Dr. Svetlana Casas MD Primary Care Provider Active Start: September 16, 2024 End: September 16, 2024 Dr. Svetlana Casas MD Attending Provider Active Start: September 16, 2024 End: September 16, 2024 Dr. Svetlana Casas MD Referring Provider Active Start: September 16, 2024 End: September 16, 2024 Team Status: Inactive Member Role Status Dates Dr. Svetlana Casas MD Primary Care Provider Active Start: September 22, 2024 End: September 22, 2024 Dr. Svetlana Casas MD Referring Provider Active Start: September 22, 2024 End: September 22, 2024 Dr. Hussein Waldron MD Attending Provider Active Start: September 22, 2024 End: September 22, 2024 Team Status: Inactive Member Role Status Dates Dr. Svetlana Casas MD Primary Care Provider Active Start: September 22, 2024 End: September 22, 2024 Dr. Svetlana Casas MD Attending Provider Active Start: September 22, 2024 End: September 22, 2024 Dr. Svetlana Casas MD Referring Provider Active Start: September 22, 2024 End: September 22, 2024 Dr. Hussein Waldron MD Other Provider Active S tart: September 22, 2024 End: September 22, 2024 Team Status: Active Member Role Status Dates Dr. Svetlana Casas MD Primary Care Provider Active Start: September 23, 2024 Dr. Svetlana Casas MD Attending Provider Active Start: September 23, 2024 Dr. Svetlana Casas MD Referring Provider Active Start: September 23, 2024 Dr. Hussein Waldron MD Other Provider Active S tart: September 23, 2024 Team Status: Inactive Member Role Status Dates Dr. Svetlana Casas MD Primary Care Provider Active Start: September 23, 2024 End: September 23, 2024 Dr. Svetlana Casas MD Attending Provider Active Start: September 23, 2024 End: September 23, 2024 Dr. Svetlana Casas MD Referring Provider Active Start: September 23, 2024 End: September 23, 2024 Dr. Hussein Waldron MD Other Provider Active S tart: September 23, 2024 End: September 23, 2024 Team Status: Inactive Member Role Status Dates Dr. Svetlana Casas MD Primary Care Provider Active Start: September 30, 2024 End: September 30, 2024 Dr. Susan Robles MD Attending Provider Active Start: September 30, 2024 End: September 30, 2024 Dr. Susan Robles MD Referring Provider Active Start: September 30, 2024 End: September 30, 2024 Team Status: Inactive Member Role Status Dates Dr. Svetlana Casas MD Primary Care Provider Active Start: October 16, 2024 End: October 16, 2024 Dr. Svetlana Casas MD Referring Provider Active Start: October 16, 2024 End: October 16, 2024 Dr. Adolph Maza MD Attending Provider Active Start: October 16, 2024 End: October 16, 2024 Team Status: Active Member Role/Relationship Status Dates Dr. Svetlana Casas MD Primary Care Provider Active Team Status: Inactive Member Role/Relationship Status Dates Dr. Svetlana Casas MD Primary Care Provider Active Start: July 25, 2024 End: July 25, 2024 Dr. Hussein Waldron MD Attending Provider Active Start: July 25, 2024 End: July 25, 2024 Dr. Hussein Waldron MD Referring Provider Active Start: July 25, 2024 End: July 25, 2024 Team Status: Inactive Member Role/Relationship Status Dates Dr. Svetlana Casas MD Primary Care Provider Active Start: September 16, 2024 End: September 16, 2024 Dr. Svetlana Casas MD Attending Provider Active Start: September 16, 2024 End: September 16, 2024 Dr. Svetlana Casas MD Referring Provider Active Start: September 16, 2024 End: September 16, 2024 Team Status: Inactive Member Role/Relationship Status Dates Dr. Svetlana Casas MD Primary Care Provider Active Start: September 22, 2024 End: September 22, 2024 Dr. Svetlana Casas MD Referring Provider Active Start: September 22, 2024 End: September 22, 2024 Dr. Hussein Waldron MD Attending Provider Active Start: September 22, 2024 End: September 22, 2024 Team Status: Inactive Member Role/Relationship Status Dates Dr. Svetlana Casas MD Primary Care Provider Active Start: September 22, 2024 End: September 22, 2024 Dr. Svetlana Casas MD Attending Provider Active Start: September 22, 2024 End: September 22, 2024 Dr. Svetlana Casas MD Referring Provider Active Start: September 22, 2024 End: September 22, 2024 Dr. Hussein Waldron MD Other Provider Active S tart: September 22, 2024 End: September 22, 2024 Team Status: Inactive Member Role/Relationship Status Dates Dr. Svetlana Casas MD Primary Care Provider Active Start: September 23, 2024 End: September 23, 2024 Dr. Svetlana Casas MD Attending Provider Active Start: September 23, 2024 End: September 23, 2024 Dr. Svetlana Casas MD Referring Provider Active Start: September 23, 2024 End: September 23, 2024 Dr. Hussein Waldron MD Other Provider Active S tart: September 23, 2024 End: September 23, 2024 Team Status: Inactive Member Role/Relationship Status Dates Dr. Svetlana Casas MD Primary Care Provider Active Start: September 30, 2024 End: September 30, 2024 Dr. Susan Robles MD Attending Provider Active Start: September 30, 2024 End: September 30, 2024 Dr. Susan Robles MD Referring Provider Active Start: September 30, 2024 End: September 30, 2024 Team Status: Inactive Member Role/Relationship Status Dates Dr. Svetlana Casas MD Primary Care Provider Active Start: October 16, 2024 End: October 16, 2024 Dr. Svetlana Casas MD Referring Provider Active Start: October 16, 2024 End: October 16, 2024 Dr. Adolph Maza MD Attending Provider Active Start: October 16, 2024 End: October 16, 2024 Team Status: Inactive Member Role/Relationship Status Dates Dr. Svetlana Casas MD Primary Care Provider Active Start: November 02, 2024 End: November 02, 2024 Dr. Svetlana Casas MD Attending Provider Active Start: November 02, 2024 End: November 02, 2024 Dr. Svetlana Casas MD Referring Provider Active Start: November 02, 2024 End: November 02, 2024 Dr. Nina Marrero MD Other Provider Active Start: November 02, 2024 End: November 02, 2024 Team Status: Inactive Member Role/Relationship Status Dates Dr. Svetlana Casas MD Primary Care Provider Active Start: September 16, 2024 End: September 16, 2024 Dr. Svetlana Casas MD Attending Provider Active Start: September 16, 2024 End: September 16, 2024 Dr. Svetlana Casas MD Referring Provider Active Start: September 16, 2024 End: September 16, 2024 Team Status: Inactive Member Role/Relationship Status Dates Dr. Svetlana Casas MD Primary Care Provider Active Start: September 22, 2024 End: September 22, 2024 Dr. Svetlana Casas MD Referring Provider Active Start: September 22, 2024 End: September 22, 2024 Dr. Hussein Waldron MD Attending Provider Active Start: September 22, 2024 End: September 22, 2024 Team Status: Inactive Member Role/Relationship Status Dates Dr. Svetlana Casas MD Primary Care Provider Active Start: September 22, 2024 End: September 22, 2024 Dr. Svetlana Casas MD Attending Provider Active Start: September 22, 2024 End: September 22, 2024 Dr. Svetlana Casas MD Referring Provider Active Start: September 22, 2024 End: September 22, 2024 Dr. Hussein Waldron MD Other Provider Active S tart: September 22, 2024 End: September 22, 2024 Team Status: Inactive Member Role/Relationship Status Dates Dr. Svetlana Casas MD Primary Care Provider Active Start: September 23, 2024 End: September 23, 2024 Dr. Svetlana Casas MD Attending Provider Active Start: September 23, 2024 End: September 23, 2024 Dr. Svetlana Casas MD Referring Provider Active Start: September 23, 2024 End: September 23, 2024 Dr. Hussein Waldron MD Other Provider Active S tart: September 23, 2024 End: September 23, 2024 Team Status: Inactive Member Role/Relationship Status Dates Dr. Svetlana Casas MD Primary Care Provider Active Start: September 30, 2024 End: September 30, 2024 Dr. Susan Robles MD Attending Provider Active Start: September 30, 2024 End: September 30, 2024 Dr. Susan Robles MD Referring Provider Active Start: September 30, 2024 End: September 30, 2024 Team Status: Inactive Member Role/Relationship Status Dates Dr. Svetlana Casas MD Primary Care Provider Active Start: October 16, 2024 End: October 16, 2024 Dr. Svetlana Casas MD Referring Provider Active Start: October 16, 2024 End: October 16, 2024 Dr. Adolph Maza MD Attending Provider Active Start: October 16, 2024 End: October 16, 2024 Team Status: Inactive Member Role/Relationship Status Dates Dr. Svetlana Casas MD Primary Care Provider Active Start: November 02, 2024 End: November 02, 2024 Dr. Svetlana Casas MD Attending Provider Active Start: November 02, 2024 End: November 02, 2024 Dr. Svetlana Casas MD Referring Provider Active Start: November 02, 2024 End: November 02, 2024 Dr. Nina Marrero MD Other Provider Active Start: November 02, 2024 End: November 02, 2024 Team Status: Inactive Member Role/Relationship Status Dates Dr. Svetlana Casas MD Primary Care Provider Active Start: December 17, 2024 End: December 17, 2024 Dr. Svetlana Casas MD Attending Provider Active Start: December 17, 2024 End: December 17, 2024 Dr. Svetlana Casas MD Referring Provider Active Start: December 17, 2024 End: December 17, 2024 Team Status: Active Member Role/Relationship Status Dates Dr. Svetlana Casas MD Primary Care Provider Active Start: December 17, 2024 Dr. Svetlana Csaas MD Attending Provider Active Start: December 17, 2024 Dr. Svetlana Casas MD Referring Provider Active Start: December 17, 2024 Team Status: Inactive Member Role/Relationship Status Dates Dr. Svetlana Casas MD Primary Care Provider Active Start: December 21, 2024 End: December 21, 2024 Dr. Svetlana Casas MD Referring Provider Active Start: December 21, 2024 End: December 21, 2024 Dr. Hussein Waldron MD Attending Provider Active Start: December 21, 2024 End: December 21, 2024 Team Status: Active Member Role/Relationship Status Dates Dr. Svetlana Casas MD Primary Care Provider Active Start: December 21, 2024 Dr. Hussein Waldron MD Attending Provider Active Start: December 21, 2024 Dr. Hussein Waldron MD Referring Provider Active Start: December 21, 2024 Team Status: Inactive Member Role/Relationship Status Dates Dr. Svetlana Casas MD Primary Care Provider Active Start: December 17, 2024 End: December 17, 2024 Dr. Svetlana Casas MD Attending Provider Active Start: December 17, 2024 End: December 17, 2024 Dr. Svetlana Casas MD Referring Provider Active Start: December 17, 2024 End: December 17, 2024 Team Status: Inactive Member Role/Relationship Status Dates Dr. Svetlana Casas MD Primary Care Provider Active Start: December 21, 2024 End: December 21, 2024 Dr. Hussein Waldron MD Attending Provider Active Start: December 21, 2024 End: December 21, 2024 Dr. Hussein Waldron MD Referring Provider Active Start: December 21, 2024 End: December 21, 2024 FOR RECORDS PERTAINING TO PATIENTS WHO ARE [...] BE BASED ON THE PRIMARY CLINICAL RECORDS. [facility] [employer] provides no warranty or guarantee of the accuracy or completeness of information in this document.
[2025-01-03 23:34] VITALS: BP 155/77; PULSE 64; RESP 20; O2SAT 95
[2025-01-03 23:35] LABS: Anion Gap 14 (5-15); BUN 31 mg/dL (4-19); BUN/Creat Ratio 19.3 RATIO (10-20); Calcium,Total 9.9 mg/dL (7.6-11.0); Carbon Dioxide 18.9 mmol/L (21.0-32.0); Chloride 106 mmol/L (98-108); Estimated Creatinine Clearance 40.53 ml/min (50-250); Glucose 174 mg/dL (70-99); Magnesium 2.0 mg/dL (1.5-2.2); Potassium 3.9 mmol/L (3.3-5.1)
[2025-01-04] VITALS: BP 149/81; PULSE 65; RESP 19; O2SAT 100
[2025-01-04 00:17] LABS: Troponin T High Sensitivity 37 ng/L (<=22)
[2025-01-04 01:00] VITALS: BP 144/80; PULSE 74; RESP 18; O2SAT 99
[2025-01-04 01:45] LABS: Troponin T High Sens 2 HR 33 ng/L (<=22)
[2025-01-04 02:00] VITALS: BP 143/71; PULSE 66; RESP 14; TEMP 36.4; O2SAT 98
== END 2025-01-04 02:35 | disposition home or self-care (01) ==
PROVIDERS: Emergency Provider Emergency Medicine; PCP Internal Medicine; Visit Provider Emergency Medicine
DX: R07.9 Chest pain, unspecified (principal); E11.22 Type 2 diabetes mellitus with diabetic chronic kidney disease; N18.30 Chronic kidney disease, stage 3 unspecified; I12.9 Hypertensive chronic kidney disease with stage 1 through stage 4 chronic kidney disease, or unspecified chronic kidney disease; E03.9 Hypothyroidism, unspecified; Z79.82 Long term (current) use of aspirin; Z79.84 Long term (current) use of oral hypoglycemic drugs; Z79.890 Hormone replacement therapy; Z87.891 Personal history of nicotine dependence
CPT/HCPCS: 71046; 80048; 83735; 84484; 85025; 93005; 96374; 96375; 99285; A4216

== ENCOUNTER → 2025-02-05 | Outpatient (CLI) | payer MEDICARE, OTHER, SELFPAY ==
[2025-02-05 11:41] LABS: Anion Gap 14 (5-15); BUN 29 mg/dL (4-19); BUN/Creat Ratio 17.1 RATIO (10-20); Calcium,Total 9.2 mg/dL (7.6-11.0); Carbon Dioxide 20.0 mmol/L (21.0-32.0); Chloride 106 mmol/L (98-108); Glucose 233 mg/dL (70-99); Potassium 4.3 mmol/L (3.3-5.1)
== END | disposition home or self-care (01) ==
PROVIDERS: PCP Internal Medicine; Referring Provider Internal Medicine; Visit Provider Internal Medicine
DX: E03.9 Hypothyroidism, unspecified (principal)
CPT/HCPCS: 36415; 80048; 84443

== ENCOUNTER → 2025-03-18 | Outpatient (CLI) | payer MEDICARE, OTHER, SELFPAY ==
[2025-03-18 17:23] LABS: Hematocrit 36.4 % (40-54); Hemoglobin 11.8 g/dL (13.0-16.5); Immature Granulocytes Count 0.050 X10^3/uL (0.0-0.0); Mean Corp Hgb Conc 32.4 g/dL (32-36); Mean Corpuscular Volume 89.2 fL (80-94); Mean Platelet Vol. 10.3 fl (6.2-12.0); NRBC Flagged by Analyzer 0 % (0-5); Platelet Count 231 K/mm3 (150-450); RBC Distribution Width CV 13.6 % (11.6-14.6); RBC Distribution Width SD 44.5 fl (35.1-43.9); Red Blood Count 4.08 M/mm3 (4.6-6.2); White Blood Count 6.9 K/mm3 (4.4-11.0)
[2025-03-18 18:26] LABS: AST(SGOT) 49 U/L (<=37); Alanine Aminotransfer ALT/SGPT 51 U/L (<=46); Albumin, Serum 4.3 g/dL (3.4-4.8); Alkaline Phosphatase 105 U/L (40-129); Anion Gap 14 (5-15); BUN 34 mg/dL (4-19); BUN/Creat Ratio 19.4 RATIO (10-20); Calcium,Total 9.9 mg/dL (7.6-11.0); Carbon Dioxide 20.7 mmol/L (21.0-32.0); Chloride 104 mmol/L (98-108); Cholesterol 145 mg/dL (<=200); Globulin 2.9 g/dL (2.2-4.2); Glucose 140 mg/dL (70-99); Low Density Lipoprotein Calc. 47 mg/dL; Potassium 4.3 mmol/L (3.3-5.1); Triglycerides 403 mg/dL; Very Low Density Lipoprotein 81 mg/dL (5-40); cholesterol:hdl ratio screen 3.81
== END | disposition home or self-care (01) ==
LOC: LAB 16:32
PROVIDERS: PCP Internal Medicine; Referring Provider Internal Medicine; Visit Provider Internal Medicine
DX: E11.9 Type 2 diabetes mellitus without complications (principal); E03.9 Hypothyroidism, unspecified
CPT/HCPCS: 36415; 80053; 80061; 83036; 84443; 85025